=== PATIENT | male | born 1955 | race Hispanic/Latino ===

== ENCOUNTER 2024-11-13 11:55 | Inpatient (IN) | payer OTHER ==
--- OUTSIDE RECORDS SUMMARY | 2024-11-13 12:10 | XMS REPORT | Continuity of Care Document ---
Author Name Unknown Address [address] [facility] [address] [place] [address] [facility] [place] Address [address] [facility] [address] [place] [address] Care Team Providers Care Leaf Blender Name Role Phone None, None Primary Care Physician GARTH BUSTAMANTE I Attending Clinician Unavailab mary KERN MD Attending Clinician Unavailab JACQUELINE Londono Attending Clinician Unavailable ACACIA REYES Attending Clinician Unav MEAGHAN Tinsley Attending Clinician Unavailable ANTHONY BERNAL Attending Clinician Unavailable WIN ELMORE Attending Clinician Unavailable JOSE LEIVA Attending Clinician Unava ilVIGNESH Tapia Attending Clinician Unavailable LAB69 Attending Clinician Unavailable LAB45 Attending Clinician Unavailable FRANKIE SHARMA Attending Clinician Unavailable SHANNA JARA Attending Clinician Unavailable MICHELA SAAB Attending Clinician Unavailable YARA DAVIS Attending Clinician Unagonzalo He, HOLTER Attending Clinician Unavailable LAB39 Attending Clinician Unavailable ISIDORO YAÑEZ Attending Clinician Unavailable RODRÍGUEZ EARL Attending Clinician Unavailable MASSIEL AHMADI Attending Clinician Un available JAMEL POOL Attending Clinician Unavailable LAB57 Attending Clinician Unavailable URBANO REDD Attending Clinician Unavaila MAURICE Healy Attending Clinician UnavailQUITA Perez Attending Clinician Unavailable AL MALONEY Attending Clinician Unavailable Hi Hill MD Attending Clinician [phone] Trevor NAVA, Sher Gusman Attending Clinician + [phone] Al Maloney MD Attending Clinician [phone] Ky DOBBS, Maryse Gee Attending Clinicia n AL MALONEY Attending Clinician Unavailable FRANCESCA ADAME Attending Clinician Unavailable SHER RITCHIE Attending Clinician Unavailable [id number] Attending Clinician Unavailable Alexia Sherman MD Attending Clinician + JERRICA BONNER Attending Clinician Unavailab le LAB91 Attending Clinician Unavailable 39, HOLTER Attending Clinician Unavailable ARETHA NAVARRO Attending Clinician Unavailab le LAB90 Attending Clinician Unavailable Tim Tarango MD Attending Clinician [phone] GAUDENCIO ADAMS Attending Clinician Unavailable Samm Rivera MD Attending Clinician [phone] Booker Hicks DO Attending Clinician [phone] Riya Lee MD Attending Clinician +[phone] Yissel Slaughter MD Attending Clinician + [phone] Gaudencio Adams MD Attending Clinician +[phone] YOANDY MILLS Attending Clinician UnavailGLENDY Hartman Attending Clinician Unavailable David Zelaya Attending Clinician +[phone] LUL CUELLAR Attending Clinician Unavailable ADRY FAYE Attending Clinician Unavailable PROVIDER, AFFILIATE Attending Clinician Unavaila SHER Mantilla Admitting Clinician Unavamichael Murray DO, Sher Gusman Admitting Clinician + [phone] AL MALONEY Admitting Clinician Unavailable Al aMloney MD Admitting Clinician [phone] RIYA LEE Admitting Clinician Unavailable Riya Lee MD Admitting Clinician Payers Payer Name Policy Type Policy Number Effective Date Expirati on Date Source WELLCARE/WELLCARE [place] [id number] 2022 00:00:00 WELLCARE [place] CLASSIC SIMPLE 7 [id number] 2024 00:00:00 WELLCARE MEDICARE Medicare [id number] 2023 00:00:00 BRE KRAMER GOLD PLUS 42 OA 7 [id number] 2022 00:00:00 Problems Condition Name Condition Details Condition Category Status Onset Date Resolution Date Last Treatment Date Treating Clinician Comments Source Acute on chronic systolic (congestiv e) heart failure (multi HCC) Acute on chronic systolic (congestiv e) heart failure (multi HCC) Disease Active 07-05 00:00: 00 Nagela Seybold - Externa l Bilateral lower extremity edema Bilateral lower extremity edema Disease Active 07-04 00:00: 00 Angela Seybold - Externa l NIHARIKA (obstructi ve sleep apnea) NIHARIKA (obstructi ve sleep apnea) Disease Active 06-20 00:00: 00 Angela Seybold - Externa l Subclinica l hypothyroi dism Subclinica l hypothyroi dism Disease Active 06-20 00:00: 00 Angela Seybold - Externa l Class 3 severe obesity with body mass index (BMI) of 40.0 to 44.9 in adult Class 3 severe obesity with body mass index (BMI) of 40.0 to 44.9 in adult Disease Active 06-20 00:00: 00 Angela Seybold - Externa l Acute metabolic encephalop athy Acute metabolic encephalop athy Disease Active 05-18 00:00: 00 Memoria l Td Epic Acute on chronic systolic (congestiv e) heart failure Acute on chronic systolic (congestiv e) heart failure Disease Active 03-04 00:00: 00 Mem[facility] Epic Acute hypoxic respirator y failure Acute hypoxic respirator y failure Disease Active 03-04 00:00: 00 Memoria [facility] Epic PAF (paroxysma l atrial fibrillati on) (multi HCC) PAF (paroxysma l atrial fibrillati on) (multi HCC) Disease Active 02-25 00:00: 00 Angela Herreraold - Externa l Hypercoagu lable state due to paroxysmal atrial fibrillati on (multi HCC) Hypercoagu lable state due to paroxysmal atrial fibrillati on (multi HCC) Disease Active 02-25 00:00: 00 Angela Joyner - Externa l CHF (congestiv e heart failure) (multi HCC) CHF (congestiv e heart failure) (multi HCC) Disease Active 02-25 00:00: 00 Angela Joyner - Externa l Benign prostatic hyperplasi a with weak urinary stream Benign prostatic hyperplasi a with weak urinary stream Disease Active 02-25 00:00: 00 Angela Hrereraold - Externa l Primary hypertensi on Primary hypertensi on Disease Active 02-25 00:00: 00 Angela Joyner - Externa l Alcoholic liver disease (HHS-HCC) Alcoholic liver disease (HHS-HCC) Disease Active 02-25 00:00: 00 Angela Joyner - Externa john Hepatomega ly Hepatomega ly Disease Active 02-25 00:00: 00 Angela Herreraold - Externa l Morbid obesity Morbid obesity Disease [facility] 2023-02 00:00: 00 Jenae Appiah Epic BMI 40.0-44.9, adult BMI 40.0-44.9, adult Disease Active 2023-02 00:00: 00 Jenae Appiah Epic New onset atrial fibrillati on (CMS/HCC) New onset atrial fibrillati on (CMS/HCC) Disease Active 2023-02 00:00: 00 Jenae Appiah Epic Hypertensi on Hypertensi on Disease Active 2023-02 00:00: 00 Jenae Appiah Epic Other heart failure Other heart failure Disease Active 2023-02 00:00: 00 Jenae Appiah Epic Acute hypercapni c respirator y failure (CMS/HCC) Acute hypercapni c respirator y failure (CMS/HCC) Disease Active 2023-02 00:00: 00 Jenae Lang Class 3 severe obesity due to excess calories without serious comorbidit y with body mass index (BMI) of 40.0 to 44.9 in adult Class 3 severe obesity due to excess calories without serious comorbidit y with body mass index (BMI) of 40.0 to 44.9 in adult Disease Active 03-03 00:00: 00 Angela Herreraold - Externa l Morbid obesity Morbid obesity Disease Active 03-03 00:00: 00 Angela Setimothyold - Externa l Primary osteoarthr itis of both knees Primary osteoarthr itis of both knees Disease Active 2021-02 00:00: 00 Angela Setimothyold - Externa l Prediabete s Prediabete s Disease Active 2021-02 00:00: 00 Angela Herreraold - Externa l Alcohol abuse Alcohol abuse Disease Active 2021-02 00:00: 00 Angela Herreraold - Externa l Cannabis abuse, daily use Cannabis abuse, daily use Disease Active 2021-02 00:00: 00 Angela Herreraold - Externa l Screening, lipid Screening, lipid Disease Active 2021-02 00:00: 00 Angela Setimothyold - Externa l Alcohol withdrawal delirium, acute, hyperactiv e Alcohol withdrawal delirium, acute, hyperactiv e Disease Resolve d 2023-02 2-27 00:00: 00 2024-02-22 00:00:00 2024-02-22 14:24:03 Jenae Lang Acute respirator y failure with hypoxia and hypercapni a (CMS/HCC) Acute respirator y failure with hypoxia and hypercapni a (CMS/HCC) Disease Resolve d 2023-02 2-25 00:00: 00 2024-02-22 00:00:00 2024-02-22 14:24:01 Jenae Appiah [facility] Social History Social Habit Start Date Stop Date Quantity Comments Source Gender identity 2023-05-13 08:00:53 Identifies as [facility]finding[facility] Sexual orientation [facility] History of tobacco use Cigarette Smoker [facility] History SDOH Alcohol Std Drinks Angela reeder - External History SDOH Alcohol Binge Angela Joyner - External History of Occupation Angela Joyner - External History SDOH Alcohol Frequency Angela madrigal - External Alcoholic beverage intake 2024-08-27 00:00:00 2024-08-27 00:00:00 21.43 /d Angela Anya - External History of Social function 2024-05-17 00:00:00 2024-05-17 00:00:00 [facility] Exposure to SARS-CoV-2 (event) 2022-03-25 00:00:00 2022-04-04 13:54:00 Not sure [facility] Alcohol intake 2022-04-04 00:00:00 2022-04-04 00:00:00 Ex-drinker (finding) [facility] Alcohol Comment 2021-12-01 00:00:00 2021-12-01 00:00:00 he states he drinks beer for pain Angela Joyner - External Education 2021-12-01 00:00:00 2021-12-01 00:00:00 10 Angela Joyner - External Tobacco use and exposure 2021-12-01 00:00:00 2021-12-01 00:00:00 Smokeless tobacco non-user Angela Joyner - External Sex 2021-11-10 21:03:56 2021-11-10 21:03:56 Male (finding) Angela Joyner - External Sex Assigned At 1955 00:00:00 1955 00:00:00 [facility] Smoking Status Start Date Stop Date Source Ex-smoker 2022-04-04 00:00:00 2022-04-04 00:00:00 [facility] Never smoked tobacco Angela Joyner - External Medications Ordered Medication Name Filled Medication Name Start Date Stop Date Current Medication? Ordering Clinician Indication Dosage Frequency Signature (SIG) Comments Components Source Levothyroxi ne Sodium 50 MCG oral Tablet 08-14 00:00: 00 Yes 50ug QD Take 1 tablet (50 mcg total) by mouth daily. Angela lopez Bumetanide 1 MG oral Tablet 08-09 00:00: 00 Yes 2mg Q.5D Take 2 tablets (2 mg total) by mouth 2 times daily. Angela lopez Spironolact one 25 MG oral Tablet 07-26 00:00: 00 Yes 25mg QD Take 1 tablet (25 mg total) by mouth daily. Angela lopez Tacrolimus (Protopic) 0.1 % apply externally Ointment 07-16 00:00: 00 Yes [id number] Apply to active rash on face if red, itching, or spreading BID PRN. If rash is severe there may be mild burning or stinging with initial use.. Angela lopez Hydroquinon e 4 % apply externally Cream 07-16 00:00: 00 Yes [id number] Apply to dark spots on face starting every other night and increasing to nightly if not too irritated. Use for 2 months on, 1 month off, then re-start PRN. Angela lopez Bumetanide 1 MG oral Tablet 07-08 00:00: 00 Yes 2mg Q.5D Take 2 tablets (2 mg total) by mouth 2 times daily. Angela lopez Losartan Potassium (COZAAR) 50 MG oral Tablet 07-08 00:00: 00 Yes [id number] 50mg QD Take 1 tablet (50 mg total) by mouth daily. Angela lopez Metoprolol Succinate 100 MG oral TABLET SR 24 HR 07-08 00:00: 00 Yes [id number] 100mg QD Take 1 tablet (100 mg total) by mouth daily. Angela lopez Metoprolol Tartrate (LOPRESSOR) 25 MG oral Tablet 07-04 08:52: 03 Yes 25mg Q6H Take 1 tablet (25 mg total) by mouth every 6 (six) hours. Angela lopez Lactulose 10 GM/15ML oral Solution 07-02 00:00: 00 Yes [id number] 20g Q.[id number] 3D TAKE 30 ML (20 G TOTAL) BY MOUTH 3 TIMES DAILY. Angela lopez Tamsulosin HCl 0.4 MG oral Capsule 06-21 00:00: 00 Yes [id number] 9100 .4mg QD TAKE 1 CAPSULE BY MOUTH EVERY DAY Angela lopez Metoprolol Tartrate (LOPRESSOR) 25 MG oral Tablet 06-20 14:16: 53 Yes 25mg Q6H Take 1 tablet (25 mg total) by mouth every 6 (six) hours. Angela lopez Semaglutide -Weight Management (Wegovy) 0.25 MG/0.5ML subcutaneou s Solution Auto-inject or 06-20 00:00: 00 Yes [id number] 104 .25mg Q1W Inject 0.25 mg into the skin once a week. Angela lopez Metoprolol Tartrate (LOPRESSOR) 25 MG oral Tablet 06-10 09:58: 34 Yes 25mg Q6H Take 1 tablet (25 mg total) by mouth every 6 (six) hours. Angela lopez Lactulose 20 GM/30ML oral Solution 06-05 16:02: 25 06-05 00:00 :00 No 20g Q.36266295 [id number] 3D Take 30 mL (20 g total) by mouth 3 times daily. Angela lopez Metoprolol Tartrate (LOPRESSOR) 25 MG oral Tablet 06-05 14:43: 33 Yes 25mg Q6H Take 1 tablet (25 mg total) by mouth every 6 (six) hours. Angela lopez Lactulose 20 GM/30ML oral Solution 06-05 00:00: 00 Yes [id number] 20g Q.08268195 [id number] 3D Take 30 mL (20 g total) by mouth 3 times daily. Angela lopez Metoprolol Tartrate (LOPRESSOR) 25 MG oral Tablet 05-31 11:35: 09 Yes 25mg Q6H Take 1 tablet (25 mg total) by mouth every 6 (six) hours. Angela lopez Lactulose 20 GM/30ML oral Solution 05-31 11:35: 09 Yes 20g Q.26911219 [id number] 3D Take 30 mL (20 g total) by mouth 3 times daily. Angela lopez Tamsulosin HCl 0.4 MG oral Capsule 05-28 00:00: 00 Yes [id number] 9100 .4mg QD TAKE 1 CAPSULE BY MOUTH EVERY DAY Angela lopez warfarin (Coumadin) 2.5 MG tablet warfarin (Coumadin) 2.5 MG tablet 05-27 11:23: 34 Yes 2.5mg QD Take 2.5 mg by mouth 1 time each day. 2.5mg daily Monday- Monday and 5mg daily for Monday and Monday. Jenae Lang metoprolol tartrate (Lopressor) 25 MG tablet metoprolol tartrate (Lopressor) 25 MG tablet 05-27 00:00: 00 06-26 23:59 :00 No 25mg Q.25D Take 1 tablet by mouth every 6 hours. Jenae Lang lactulose (Chronulac) 10 GM/15ML solution lactulose (Chronulac) 10 GM/15ML solution 05-27 00:00: 00 06-06 23:59 :00 No 20g Q.81301046 [id number] 3D Take 30 mL by mouth in the morning and 30 mL at noon and 30 mL in the evening. Do all this for 10 days. Jenae Lang lactulose (Chronulac) 10 GM/15ML solution 20 g lactulose (Chronulac) 10 GM/15ML solution 20 g 05-26 17:00: 00 Yes 20g Q.44227736 [id number] 3D 20 g, Oral, 3 times daily, First dose on 05/26/24 at 1700 Jenae Lang mupirocin (Bactroban) 2 % ointment mupirocin (Bactroban) 2 % ointment 05-26 17:00: 00 Yes Q.06063459 [id number] 3D Topical, 3 times daily, First dose on 05/26/24 at 1700 Jenae Lang warfarin (Coumadin) tablet 3 mg warfarin (Coumadin) tablet 3 mg 05-26 17:00: 00 Yes 3mg QD 3 mg, Oral, Daily, First dose on 05/26/24 at 1700, [facility]ous [facility] 3: Reproducti ve risk Hazardous Drug -- Refer to safe handling procedure PPE Matrix Jenae Appiah [facility] potassium & sodium phosphates (Phos-NaK) 280-160-250 MG packet 1 packet potassium & sodium phosphates (Phos-NaK) 280-160-250 MG packet 1 packet 05-26 13:45: 00 05-26 13:58 :00 No 1{packe t} 1 packet, Oral, Once, On 05/26/24 at 1345, For 1 dose, mg dosing is based on phosphorus component. Each packet contains 250 mg elemental phosphorus . Mix 1 packet in 75 mL water or juice; stir well and administer promptly. Jenae Appiah [facility] warfarin (Coumadin) tablet 1 mg warfarin (Coumadin) tablet 1 mg 05-25 17:00: 00 05-26 08:28 :11 No 1mg 1 mg, Oral, User specified (Once per day on Monday), First dose on Mon05/25/24 at 1700, 0.5mg Monday -Monday 1mg Monday and Monday [facility] 3: Reproducti ve risk Hazardous Drug -- Refer to safe handling procedure PPE Matrix Jenae Appiah [facility] enoxaparin (Lovenox) syringe 135 mg enoxaparin (Lovenox) syringe 135 mg 05-25 13:00: 00 Yes 1mg/kg Q12H 135 mg (rounded from 139 mg = 1 mg/kg ?139 kg), Subcutaneo us, Every 12 hours, First dose (after last modificati on) on Mon05/25/24 at 1300 Kristofernathan john Td [facility] furosemide (Lasix) tablet 40 mg furosemide (Lasix) tablet 40 mg 05-25 08:00: 00 Yes 40mg 40 mg, Oral, 2 times daily (10/05), First dose on 05/25/24 at 0800 Jenae Aminann [facility] warfarin (Coumadin) tablet 0.5 mg warfarin (Coumadin) tablet 0.5 mg 05-24 21:30: 00 05-26 08:27 :38 No .5mg 0.5 mg, Oral, User specified (Once per day on Monday), First dose on Mon05/24/24 at 2130, 0.5mg Monday -Monday 1mg Monday and Monday [facility] 3: Reproducti ve risk Hazardous Drug -- Refer to safe handling procedure PPE Matrix Jenae Lang Warfarin Dosing per Pharmacy Warfarin Dosing per Pharmacy 05-24 17:50: 29 Yes 1{each} 1 each, Does not apply, As needed, other, Dose per pharmacy., Starting on Mon05/24/24 at 1750, This order is a placeholde r as a reminder that warfarin is being dosed per pharmacy. Warfarin doses will be entered as a separate order. Jenae Lang melatonin tablet 3 mg melatonin tablet 3 mg 05-24 13:52: 31 Yes 3mg QD 3 mg, Oral, Nightly PRN, sleep, Starting on Mon05/24/24 at 1352 Jenae Lang polyethylen e glycol (PEG) 3350 (Miralax) packet 17 g polyethylen e glycol (PEG) 3350 (Miralax) packet 17 g 05-24 13:52: 31 Yes 17g Q24H 17 g, Oral, Daily PRN, constipati on, Starting on Mon05/24/24 at 1352, Dissolve 17 g in 120 to 240 mL (4 to 8 ounces) of beverage. Jenae Lang traMADol (Ultram) tablet 50 mg traMADol (Ultram) tablet 50 mg 05-24 13:52: 31 Yes 50mg Q6H 50 mg, Oral, Every 6 hours PRN, moderate pain (4-6), Starting on Mon05/24/24 at 1352 Jenae Lang ondansetron (Zofran) injection 4 mg ondansetron (Zofran) injection 4 mg 05-24 13:52: 31 Yes 4mg Q6H 4 mg, Intravenou s, Every 6 hours PRN, nausea, vomiting, Starting on Mon05/24/24 at 1352 Jenae Lang morphine PF injection 2 mg morphine PF injection 2 mg 05-24 13:52: 31 Yes 2mg Q4H 2 mg, Intravenou s, Every 4 hours PRN, severe pain (7-10), [facility]05/24/24 at 1352 [facility] dextrometho rphan-guaiF ENesin (Robitussin -DM) 10-100 MG/5ML liquid 5 mL dextrometho rphan-guaiF ENesin (Robitussin -DM) 10-100 MG/5ML liquid 5 mL 05-24 13:52: 31 Yes 5mL Q4H 5 mL, Oral, Every 4 hours PRN, cough, Starting on Mon05/24/24 at 1352 [facility] ipratropium -albuterol (Duo-Neb) 0.5-2.5 mg/3 mL nebulizer solution 3 mL ipratropium -albuterol (Duo-Neb) 0.5-2.5 mg/3 mL nebulizer solution 3 mL 05-24 13:52: 31 Yes 3mL Q6H 3 mL, Nebulizati on, Every 6 hours PRN, wheezing, shortness of breath, Starting on Mon05/24/24 at 1352 [facility] hydrALAZINE injection 25 mg hydrALAZINE injection 25 mg 05-24 13:52: 31 Yes 25mg Q6H 25 mg, Intravenou s, Every 6 hours PRN, high blood pressure, For SBP >165 DBP >110, Starting on Mon05/24/24 at 1352 [facility] bisacodyl (Dulcolax) suppository 10 mg bisacodyl (Dulcolax) suppository 10 mg 05-24 13:52: 31 Yes 10mg Q24H 10 mg, Rectal, Daily PRN, constipati on, Starting on Mon05/24/24 at 1352 [facility] acetaminoph en (Tylenol) tablet 650 mg acetaminoph en (Tylenol) tablet 650 mg 05-24 13:52: 31 Yes 650mg Q6H 650 mg, Oral, Every 6 hours PRN, mild pain (1-3), fever, Starting on Mon05/24/24 at 1352 [facility] calcium gluconate 1 g in sodium chloride 0.9 % 50 mL IVPB calcium gluconate 1 g in sodium chloride 0.9 % 50 mL IVPB 05-24 11:04: 30 Yes 1g 1 g, Intravenou s, Administer over 30 Minutes, As needed, Abnormal Lab Result, For NON-ICU Patients Only., Starting on Mon05/24/24 at 1104, For Ionized Calcium 1-1.05 mmol/L: Replace with 1gm Calcium gluconate IVPB over 30 minutes x 2 doses. For Ionized Calcium 0.91 - 0.99 mmol/L: Replace with 1 gm Calcium gluconate IVPB over 30 minutes x 3 doses. Recheck Ionized Calcium level 4 hours after Calcium replacemen t. Notify MD if ionized calcium < 0.91 mMol/L prior to replacemen t. *DO NOT replace if patient is on dialysis, temperatur e < 35 Celsius, or serum creatinine >2.0 mg/dL or GFR < 45 mL/min. Jenae Appiah Epic magnesium oxide (Mag-Ox) tablet 800 mg magnesium oxide (Mag-Ox) tablet 800 mg 05-24 11:04: 30 Yes 800mg 800 mg, Oral, As needed, Abnormal Lab Result, For NON-ICU Patients Only., Starting on Mon05/24/24 at 1104, For Magnesium 1.8 - 2.0 mg/dL:? Replace with Magnesium 800 mg PO x 1 dose. For Magnesium 1.5 - 1.7 mg/dL: Replace with Magnesium 800 mg PO every 4 hours x 2 doses. For Magnesium 1.1 - 1.4 mg/dL:? Replace with Magnesium 800 mg PO every 4 hours x 3 doses.? Recheck Magnesium level 4 hours after the end of replacemen t.Notify MD if Magnesium level is < 1.1 mg/dL prior to replacemen t.*Use PO or NJ administra tion unless patient is first 12 hours post-op, active GI bleed, acute arrhythmia s, ischemic bowel or NPO. *DO NOT replace if patient is on dialysis, temperatur e < 35 Celsius, or serum creatinine > 2.0 mg/dL or GFR < 45 mL/min. Jenae Appiah Epic magnesium sulfate IVPB 4 g magnesium sulfate IVPB 4 g 05-24 11:04: 30 Yes 4g 4 g, Intravenou s, at 25 mL/hr, Administer over 4 Hours, As needed, Abnormal Lab Result, For NON-ICU Patients Only, Starting on Mon05/24/24 at 1104, For Magnesium 1.8 - 2 mg/dL: Replace with Magnesium Sulfate 1 gram IVPB over 1 hour x 1 dose. For Magnesium 1.5 - 1.7 mg/dL: Replace with Magnesium Sulfate 2 grams IVPB over 2 hours x 1 dose. For Magnesium 1.1 - 1.4 mg/dL:? Replace with Magnesium Sulfate 4 grams IVPB over 4 hours x 1 dose. Recheck Magnesium level 4 hours after the end of replacemen t.Notify MD if Magnesium level is < 1.1 mg/dL prior to replacemen t.*Use PO or NJ administra tion unless patient is first 12 hours post-op, active GI bleed, acute arrhythmia s, ischemic bowel or NPO. *DO NOT replace if patient is on dialysis, temperatur e < 35 Celsius, or serum creatinine > 2.0 mg/dL or GFR < 45 mL/min. Jenae Appiah Epic magnesium sulfate IVPB 2 g magnesium sulfate IVPB 2 g 05-24 11:04: 30 Yes 2g 2 g, Intravenou s, at 25 mL/hr, Administer over 2 Hours, As needed, Abnormal Lab Result. For NON-ICU Patients Only., Starting on Mon05/24/24 at 1104, For Magnesium 1.8 - 2 mg/dL: Replace with Magnesium Sulfate 1 gram IVPB over 1 hour x 1 dose. For Magnesium 1.5 - 1.7 mg/dL: Replace with Magnesium Sulfate 2 grams IVPB over 2 hours x 1 dose. For Magnesium 1.1 - 1.4 mg/dL:? Replace with Magnesium Sulfate 4 grams IVPB over 4 hours x 1 dose. Recheck Magnesium level 4 hours after the end of replacemen t.Notify MD if Magnesium level is < 1.1 mg/dL prior to replacemen t.*Use PO or NJ administra tion unless patient is first 12 hours post-op, active GI bleed, acute arrhythmia s, ischemic bowel or NPO. *DO NOT replace if patient is on dialysis, temperatur e < 35 Celsius, or serum creatinine > 2.0 mg/dL or GFR < 45 mL/min. Jenae Appiah Epic magnesium sulfate in D5W IVPB 1 g magnesium sulfate in D5W IVPB 1 g 05-24 11:04: 30 Yes 1g 1 g, Intravenou s, at 100 mL/hr, Administer over 1 Hours, As needed, Abnormal Lab Result, For NON-ICU Patients Only., Starting on Mon05/24/24 at 1104, For Magnesium 1.8 - 2 mg/dL: Replace with Magnesium Sulfate 1 gram IVPB over 1 hour x 1 dose. For Magnesium 1.5 - 1.7 mg/dL: Replace with Magnesium Sulfate 2 grams IVPB over 2 hours x 1 dose. For Magnesium 1.1 - 1.4 mg/dL:? Replace with Magnesium Sulfate 4 grams IVPB over 4 hours x 1 dose. Recheck Magnesium level 4 hours after the end of replacemen t.Notify MD if Magnesium level is < 1.1 mg/dL prior to replacemen t.*Use PO or NJ administra tion unless patient is first 12 hours post-op, active GI bleed, acute arrhythmia s, ischemic bowel or NPO. *DO NOT replace if patient is on dialysis, temperatur e < 35 Celsius, or serum creatinine > 2.0 mg/dL or GFR < 45 mL/min. Jenae Appiah Epic sodium phosphates 30 mmol in sodium chloride 0.9 % 100 mL IVPB sodium phosphates 30 mmol in sodium chloride 0.9 % 100 mL IVPB 05-24 11:04: 30 Yes 30mmol 30 mmol, Intravenou s, Administer over 4 Hours, As needed, Abnormal Lab Result, For NON-ICU Patients Only, Starting on Mon05/24/24 at 1104, Evaluate Potassium, Phosphorou s, and Sodium level prior to replacemen t.Phosphor ous IVPB replacemen t when K > 3.9 mEq/L: (For PO or [place] replacemen t option, see orders for potassium phosphate- sodium phosphate oral packet.) For phosphorou s 2 - 2.4 mg/dL and K > 3.9 mEq/L: Replace with Sodium Phosphate 15 mmol IVPB over 4 hrs. For phosphorou s 1.6 - 1.9 mg/dL and K > 3.9 mEq/L: Replace with Sodium Phosphate 30 mmol IVPB over 4 hrs. Recheck phosphorou s level 4 hours after replacemen t complete.N otify MD if Phosphorou s level < 1.6 mg/dL or Na > 148 mEq/L prior to replacemen t. *Use PO or [place] administra tion unless patient is first 12 hours post-op, active GI bleed, acute arrhythmia s, ischemic bowel or NPO. *DO NOT replace if patient is on dialysis, temperatur e < 35 Celsius, or serum creatinine > 2.0 mg/dL or GFR < 45 mL/min. Memoria l [facility] Epic sodium phosphates 15 mmol in sodium chloride 0.9 % 100 mL IVPB sodium phosphates 15 mmol in sodium chloride 0.9 % 100 mL IVPB 05-24 11:04: 30 Yes 15mmol 15 mmol, Intravenou s, Administer over 4 Hours, As needed, Abnormal Lab Result, For NON-ICU Patients Only, Starting on Mon05/24/24 at 1104, Evaluate Potassium, Phosphorou s, and Sodium level prior to replacemen t.Phosphor ous IVPB replacemen t when K > 3.9 mEq/L: (For PO or NJ replacemen t option, see orders for potassium phosphate- sodium phosphate oral packet.) For phosphorou s 2 - 2.4 mg/dL and K > 3.9 mEq/L: Replace with Sodium Phosphate 15 mmol IVPB over 4 hrs. For phosphorou s 1.6 - 1.9 mg/dL and K > 3.9 mEq/L: Replace with Sodium Phosphate 30 mmol IVPB over 4 hrs. Recheck phosphorou s level 4 hours after replacemen t complete.N otify MD if Phosphorou s level < 1.6 mg/dL or Na > 148 mEq/L prior to replacemen t. *Use PO or NJ administra tion unless patient is first 12 hours post-op, active GI bleed, acute arrhythmia s, ischemic bowel or NPO. *DO NOT replace if patient is on dialysis, temperatur e < 35 Celsius, or serum creatinine > 2.0 mg/dL or GFR < 45 mL/min. Memoria l Td Epic Potassium Phosphates 30 mmol in sodium chloride 0.9 % 250 mL infusion Potassium Phosphates 30 mmol in sodium chloride 0.9 % 250 mL infusion 05-24 11:04: 30 Yes 30mmol 30 mmol, Intravenou s, Administer over 4 Hours, As needed, Abnormal Lab Result, For NON-ICU Patients Only, Starting on Mon05/24/24 at 1104, Potassium and Phosphorou s replacemen t:For K 3.5 - 3.9 mEq/L AND phosphorou s 2.0 - 2.4 mg/dL: Replace with Potassium Phosphate 15 mMol IVPB over 4 hours. For K 3.1 - 3.4 mEq/L AND phosphorou s 2.0 - 2.4 mg/dL: Replace with KCL 20 meq PO/NJ (or IVPB over 2 hours) followed by Potassium Phosphate 15 mMol IVPB over 4 hours. For K 3.1 - 3.9 mEq/L AND phosphorou s 1.6 - 1.9 mg/dL: Replace with Potassium Phosphate 30 mMol IVPB over 4 hours. Recheck Potassium and Phosphorou s level 4 hours after replacemen t complete. Notify MD for K < 3.1 mEq/L or Phosphorou s < 1.6 mg/dL prior to replacemen t.*Use PO or NJ administra tion unless patient is first 12 hours post-op, active GI bleed, acute arrhythmia s, ischemic bowel or NPO. *DO NOT replace if patient is on dialysis, temperatur e < 35 Celsius, or serum creatinine > 2.0 mg/dL or GFR < 45 mL/min. Memoria l Td Epic potassium phosphates 15 mmol in sodium chloride 0.9 % 100 mL infusion potassium phosphates 15 mmol in sodium chloride 0.9 % 100 mL infusion 05-24 11:04: 30 Yes 15mmol 15 mmol, Intravenou s, Administer over 4 Hours, As needed, PRN Abnormal Lab Result, For NON-ICU Patients Only., Starting on Mon05/24/24 at 1104, Potassium and Phosphorou s replacemen t:For K 3.5 - 3.9 mEq/L AND phosphorou s 2.0 - 2.4 mg/dL: Replace with Potassium Phosphate 15 mMol IVPB over 4 hours. For K 3.1 - 3.4 mEq/L AND phosphorou s 2.0 - 2.4 mg/dL: Replace with KCL 20 meq PO/NJ (or IVPB over 2 hours) followed by Potassium Phosphate 15 mMol IVPB over 4 hours. For K 3.1 - 3.9 mEq/L AND phosphorou s 1.6 - 1.9 mg/dL: Replace with Potassium Phosphate 30 mMol IVPB over 4 hours. Recheck Potassium and Phosphorou s level 4 hours after replacemen t complete. Notify MD for K < 3.1 mEq/L or Phosphorou s < 1.6 mg/dL prior to replacemen t.*Use PO or NJ administra tion unless patient is first 12 hours post-op, active GI bleed, acute arrhythmia s, ischemic bowel or NPO. *DO NOT replace if patient is on dialysis, temperatur e < 35 Celsius, or serum creatinine > 2.0 mg/dL or GFR < 45 mL/min. Maximum rate for peripheral administra tion 40 mL/hr, maximum rate for central line administra tion 100 mL/hr. Memoria l T[facility] Epic potassium & sodium phosphates (Phos-NaK) 280-160-250 MG packet 2 packet potassium & sodium phosphates (Phos-NaK) 280-160-250 MG packet 2 packet 05-24 11:04: 30 Yes 2{packe t} 2 packet, Oral, As needed, Abnormal Lab Result, For NON-ICU Patients Only, Starting on Mon05/24/24 at 1104, Oral Phosphorou s replacemen t when K is 3.5 - 4.5 mEq/L:(If the K is < 3.5 mEq/L, refer to IVPB Potassium Phosphate orders for replacemen t)Evaluate Potassium, Phosphorou s, and Sodium level prior to replacemen t. For Phosphorou s 2 - 2.4 mg/dL and K 3.5 - 4.5 mEq/L: Replace with 2 packets PO x 1 dose For Phosphorou s 1.6 - 1.9 mg/dL and K 3.5 - 4.5 mEq/L: Replace with 2 packets PO every 4 hours x 2 doses Recheck Potassium and Phosphorou s level 4 hours after replacemen t.Notify MD if PO4 level is <1.6mg/dL prior to replacemen t.*Use PO or NJ administra tion unless patient is first 12 hours post-op, active GI bleed, acute arrhythmia s, ischemic bowel or NPO. *DO NOT replace if patient is on dialysis, temperatur e < 35 Celsius, or serum creatinine > 2.0 mg/dL or GFR < 45 mL/min. Memoria l [facility] Epic potassium chloride IVPB 10 mEq potassium chloride IVPB 10 mEq 05-24 11:04: 29 Yes 10meq 10 mEq, Intravenou s, at 100 mL/hr, Administer over 1 Hours, As needed, Abnormal Lab Result, For NON-ICU Patients Only, Starting on Mon05/24/24 at 1104, Evaluate Potassium and Phosphorou s level prior to replacemen t.Stephanie m chloride Peripheral infusion concentrat ion = 0.1 mEq/mLAdmi nister each KCL 10 mEq IVPB dose over 1 hour. Potassium replacemen t; phosphorou s > 2.4 mg/dL or phosphorou s level not available: For K = 3.5 - 3.9 mEq/L: Replace with KCL 20 mEq IVPB over 2 hours.? Recheck Potassium with next scheduled lab. For K = 3.1 - 3.4 mEq/L: Replace with KCL 40 mEq IVPB over 4 hours.? Recheck Potassium 4 hours after replacemen t. Potassium and Phosphorou s IV Replacemen t (See Potassium Phosphate orders): For K = 3.5 - 3.9 mEq/L AND Phosphorou s 2 - 2.4 mg/dL:? Replace with Potassium Phosphate 15 mMol IVPB over 4 hours. For K = 3.1 - 3.4 mEq/L AND Phosphorou s 2 - 2.4 mg/dL: Replace with KCL 20 mEq? IVPB over 2 hours followed by Potassium Phosphate 15 mMol IVPB over 4 hours.? For K = 3.1 - 3.9 mEq/L AND Phosphorou s 1.6 - 1.9 mg/dL: Replace with Potassium Phosphate 30 mMol IVPB over 4 hours.? Recheck Potassium and Phosphorou s levels 4 hours after replacemen t complete. Notify MD for K < 3.1 mEq/L or Phosphorou s < 1.6 mg/dL prior to replacemen t.*Use PO or NJ administra tion unless patient is first 12 hours post-op, active GI bleed, acute arrhythmia s, ischemic bowel or NPO. *DO NOT replace if patient is on dialysis, temperatur e < 35 Celsius, or serum creatinine > 2.0 mg/dL or GFR < 45 mL/min. Jenae Lang Potassium chloride solution 20 mEq Potassium chloride solution 20 mEq 05-24 11:04: 29 Yes 20meq 20 mEq, Nasogastri c, As needed, Abnormal Lab Result, For NON-ICU Patients Only, Starting on Mon05/24/24 at 1104, Evaluate Potassium and Phosphorou s level prior to replacemen t. Potassium replacemen t; phosphorou s > 2.4 mg/dL or phosphorou s level not available: For K = 3.5 - 3.9 mEq/L: Replace with KCL 20 mEq.? Recheck Potassium with next scheduled lab. For K = 3.1 - 3.4 mEq/L: Replace with KCL 40 mEq.? Recheck Potassium 4 hours after replacemen t. Potassium and Phosphorou s Replacemen t (See Phosphate replacemen t orders):Fo r K = 3.5 - 4.5 mEq/L AND Phosphorou s 2 - 2.4 mg/dL:? Replace with 2 packets of Potassium phosphate/ sodium phosphate oral powder x 1 dose. For K = 3.5 - 4.5 mEq/L AND Phosphorou s 1.6 - 1.9 mg/dL:? Replace with 2 packets of Potassium phosphate/ sodium phosphate oral powder Q4H x 2 doses. For K = 3.1 - 3.4 mEq/L AND Phosphorou s 2 - 2.4 mg/dL: Replace with KCL 20 mEq PO/NJ AND Potassium Phosphate 15 mMol IVPB over 4 hours.? For K = 3.1 - 3.4 mEq/L AND Phosphorou s 1.6 - 1.9 mg/dL: Replace with Potassium Phosphate 30 mMol IVPB over 4 hours.? Recheck Potassium and Phosphorou s levels 4 hours after replacemen t complete. Notify MD for K < 3.1 mEq/L or Phosphorou s < 1.6 mg/dL prior to replacemen t. *Use PO or NJ administra tion unless patient is first 12 hours post-op, active GI bleed, acute arrhythmia s, ischemic bowel or NPO. *DO NOT replace if patient is on dialysis, temperatur e < 35 Celsius, or serum creatinine > 2.0 mg/dL or GFR < 45 mL/min. Jenae Lang potassium chloride CR (Klor-Con M20) ER tablet 40 mEq potassium chloride CR (Klor-Con M20) ER tablet 40 mEq 05-24 11:04: 29 Yes 40meq 40 mEq, Oral, As needed, Abnormal Lab Result, NON-ICU Patients Only, Starting on Mon05/24/24 at 1104, Evaluate Potassium and Phosphorou s level prior to replacemen t. Potassium replacemen t; phosphorou s > 2.4 mg/dL or phosphorou s level not available: For K = 3.5 - 3.9 mEq/L: Replace with KCL 20 mEq. Recheck Potassium with next scheduled lab. For K = 3.1 - 3.4 mEq/L: Replace with KCL 40 mEq.? Recheck Potassium 4 hours after replacemen t. Potassium and Phosphorou s Replacemen t: For K = 3.5 - 4.5 mEq/L AND Phosphorou s 2 - 2.4 mg/dL:? Replace with 2 packets of Potassium phosphate/ sodium phosphate oral powder x 1 dose. For K = 3.5 - 4.5 mEq/L AND Phosphorou s 1.6 - 1.9 mg/dL:? Replace with 2 packets of Potassium phosphate/ sodium phosphate oral powder Q4H x 2 doses. For K = 3.1 - 3.4 mEq/L AND Phosphorou s 2 - 2.4 mg/dL: Replace with KCL 20 mEq PO/NJ AND Potassium Phosphate 15 mMol IVPB over 4 hours. For K = 3.1 - 3.4 mEq/L AND Phosphorou s 1.6 - 1.9 mg/dL: Replace with Potassium Phosphate 30 mMol IVPB over 4 hours. Recheck Potassium and Phosphorou s levels 4 hours after replacemen t complete.N otify MD for K < 3.1 mEq/L or Phosphorou s < 1.6 mg/dL prior to replacemen t. *Use PO or NJ administra tion unless patient is first 12 hours post-op, active GI bleed, acute arrhythmia s, ischemic bowel or NPO. Do Not Crush the ER tablets. DO NOT replace if patient is on dialysis, temperatur e < 35 Celsius, or serum creatinine > 2.0 mg/dL or GFR < 45 mL/min. DO NOT CRUSH.? For patients able to take medication s orally or via feeding tube >/= 14 Burmese, may dissolve each 20 mEq tablet in 4 oz of water.? Allow about 2 minutes for the tablets to disintegra te.? Stir before giving to prepare slurry and administer .? Please exclude patient's with feeding tube less than 14 Burmese (Dobhoff, J-tube, etc) and pediatric and patients. Do not crush or chew. Jenae Lang potassium chloride CR (Klor-Con M20) ER tablet 20 mEq potassium chloride CR (Klor-Con M20) ER tablet 20 mEq 05-24 11:04: 29 Yes 20meq 20 mEq, Oral, As needed, Abnormal Lab Result, For NON-ICU Patients Only, Starting on Mon05/24/24 at 1104, Evaluate Potassium and Phosphorou s level prior to replacemen t. Potassium replacemen t; phosphorou s > 2.4 mg/dL or phosphorou s level not available: For K = 3.5 - 3.9 mEq/L: Replace with KCL 20 mEq. Recheck Potassium with next scheduled lab. For K = 3.1 - 3.4 mEq/L: Replace with KCL 40 mEq.? Recheck Potassium 4 hours after replacemen t. Potassium and Phosphorou s Replacemen t: For K = 3.5 - 4.5 mEq/L AND Phosphorou s 2 - 2.4 mg/dL:? Replace with 2 packets of Potassium phosphate/ sodium phosphate oral powder x 1 dose. For K = 3.5 - 4.5 mEq/L AND Phosphorou s 1.6 - 1.9 mg/dL:? Replace with 2 packets of Potassium phosphate/ sodium phosphate oral powder Q4H x 2 doses. For K = 3.1 - 3.4 mEq/L AND Phosphorou s 2 - 2.4 mg/dL: Replace with KCL 20 mEq PO/NJ AND Potassium Phosphate 15 mMol IVPB over 4 hours. For K = 3.1 - 3.4 mEq/L AND Phosphorou s 1.6 - 1.9 mg/dL: Replace with Potassium Phosphate 30 mMol IVPB over 4 hours. Recheck Potassium and Phosphorou s levels 4 hours after replacemen t complete.N otify MD for K < 3.1 mEq/L or Phosphorou s < 1.6 mg/dL prior to replacemen t. *Use PO or NJ administra tion unless patient is first 12 hours post-op, active GI bleed, acute arrhythmia s, ischemic bowel or NPO. Do Not Crush the ER tablets. DO NOT replace if patient is on dialysis, temperatur e < 35 Celsius, or serum creatinine > 2.0 mg/dL or GFR < 45 mL/min. DO NOT CRUSH.? For patients able to take medication s orally or via feeding tube >/= 14 Burmese, may dissolve each 20 mEq tablet in 4 oz of water.? Allow about 2 minutes for the tablets to disintegra te.? Stir before giving to prepare slurry and administer .? Please exclude patient's with feeding tube less than 14 Burmese (Dobhoff, J-tube, etc) and pediatric and patients. Do not crush or chew. Jenae Lang QUEtiapine (SEROquel) tablet 50 mg QUEtiapine (SEROquel) tablet 50 mg 05-23 21:00: 00 05-24 11:00 :51 No 50mg 50 mg, Oral, Nightly, First dose (after last modificati on) on Mon05/23/24 at 2100 Jenae Lang acetaZOLAMI DE (Diamox) 500 mg in sterile water 5 mL injection acetaZOLAMI DE (Diamox) 500 mg in sterile water 5 mL injection 05-23 09:00: 00 05-24 06:19 :41 No 500mg QD 500 mg, Intravenou s, Administer over 5 Minutes, Daily, First dose on Mon05/23/24 at 0900, For 2 doses, Infuse over 3 minutes. Reconstitu te with at least 5 mL sterile water to provide a solution containing not more than 100 mg/mL. Jenae Lang amiodarone (Pacerone) tablet 200 mg amiodarone (Pacerone) tablet 200 mg 05-22 09:00: 00 Yes 200mg QD 200 mg, Oral, Daily, First dose (after last modificati on) on Mon05/22/24 at 0900 Jenae Lang acetaZOLAMI DE (Diamox) 500 mg in sterile water 5 mL injection acetaZOLAMI DE (Diamox) 500 mg in sterile water 5 mL injection 05-22 08:00: 00 05-22 08:32 :00 No 500mg 500 mg, Intravenou s, Administer over 5 Minutes, Once, On Mon05/22/24 at 0800, For 1 dose, Infuse over 3 minutes. Reconstitu te with at least 5 mL sterile water to provide a solution containing not more than 100 mg/mL. Jenae Appiah Epic QUEtiapine (SEROquel) tablet 100 mg QUEtiapine (SEROquel) tablet 100 mg 05-22 07:00: 00 05-23 11:01 :25 No 100mg [id number] 3D 100 mg, Oral, 3 times daily, First dose on Mon05/22/24 at 0700 Jenae Appiah Epic haloperidol lactate (Haldol) injection 5 mg haloperidol lactate (Haldol) injection 5 mg 05-22 06:45: 14 05-24 12:03 :57 No 5mg Q6H 5 mg, Intramuscu lar, Every 6 hours PRN, agitation, delirium, Starting on Mon05/22/24 at 0645 Jenae Appiah Epic metoprolol tartrate (Lopressor) tablet 25 mg metoprolol tartrate (Lopressor) tablet 25 mg 05-21 18:00: 00 Yes 25mg Q.25D 25 mg, Oral, Every 6 hours scheduled, First dose (after last modificati on) on Mon05/21/24 at 1800 Jenae Appiah Epic amiodarone (Pacerone) tablet 100 mg amiodarone (Pacerone) tablet 100 mg 05-21 13:45: 00 Yes 100mg 100 mg, Oral, Once, On Mon05/21/24 at 1345, For 1 dose Jenae Appiah Epic acetaZOLAMI DE (Diamox) 500 mg in sterile water 5 mL injection acetaZOLAMI DE (Diamox) 500 mg in sterile water 5 mL injection 05-21 09:00: 00 05-21 10:21 :00 No 500mg 500 mg, Intravenou s, Administer over 5 Minutes, Once, On Mon05/21/24 at 0900, For 1 dose, Infuse over 3 minutes. Reconstitu te with at least 5 mL sterile water to provide a solution containing not more than 100 mg/mL. Jenae Appiah Epic amiodarone (Pacerone) tablet 100 mg amiodarone (Pacerone) tablet 100 mg 05-21 09:00: 00 05-21 13:42 :51 No 100mg QD 100 mg, Oral, Daily, First dose (after last modificati on) on Mon05/21/24 at 0900 Jenae Lang metoprolol tartrate (Lopressor) tablet 25 mg metoprolol tartrate (Lopressor) tablet 25 mg 05-20 22:00: 00 05-21 16:14 :31 No 25mg [id number] 3D 25 mg, Oral, Every 8 hours scheduled, First dose (after last modificati on) on Mon05/20/24 at 2200 Jenae Appiah [facility] diphenhydrA MINE (BENADryl) injection 25 mg diphenhydrA MINE (BENADryl) injection 25 mg 05-20 20:48: 25 Yes 25mg Q6H 25 mg, Intravenou s, Every 6 hours PRN, itching, Starting on Mon05/20/24 at 2048 Jenae Appiah [facility] acetaZOLAMI DE (Diamox) 500 mg in sterile water 5 mL injection acetaZOLAMI DE (Diamox) 500 mg in sterile water 5 mL injection 05-20 17:00: 00 05-21 08:26 :39 No 500mg Q.5D 500 mg, Intravenou s, at 60 mL/hr, Administer over 5 Minutes, 2 times daily, First dose on Mon05/20/24 at 1700, For 4 doses Jenae Appiah [facility] losartan (Cozaar) tablet 25 mg losartan (Cozaar) tablet 25 mg 05-20 14:15: 00 Yes 25mg QD 25 mg, Oral, Daily, First dose on Mon05/20/24 at 1415, On hold since Mon05/22/2024 at 1504 until manually unheld Jenae Lang acetaZOLAMI DE (Diamox) 250 mg in sterile water 2.5 mL injection acetaZOLAMI DE (Diamox) 250 mg in sterile water 2.5 mL injection 05-20 14:00: 00 05-20 14:55 :00 No 250mg 250 mg, Intravenou s, at 30 mL/hr, Administer over 5 Minutes, Once, On Mon05/20/24 at 1400, For 1 dose eJnae Lang enoxaparin (Lovenox) syringe 150 mg enoxaparin (Lovenox) syringe 150 mg 05-20 12:30: 00 05-25 12:36 :34 No 1mg/kg Q12H 150 mg (rounded from 152 mg = 1 mg/kg ?152 kg), Subcutaneo us, Every 12 hours, First dose on Mon05/20/24 at 1230 Jenae Lang sodium chloride (NS) 0.9 % flush 10 mL sodium chloride (NS) 0.9 % flush 10 mL 05-20 11:30: 00 Yes 10mL Q.5D 10 mL, Intravenou s, Every 12 hours scheduled, First dose on Mon05/20/24 at 1130, Administer at least once every 12 hours Jenae Lang thiamine (Vitamin B-1) tablet 100 mg thiamine (Vitamin B-1) tablet 100 mg 05-20 11:30: 00 05-24 09:56 :00 No 100mg QD 100 mg, Oral, Daily, First dose on Mon05/20/24 at 1130, For 5 days Jenae Lang folic acid (Folvite) tablet 1 mg folic acid (Folvite) tablet 1 mg 05-20 11:30: 00 05-24 09:55 :00 No 1mg QD 1 mg, Oral, Daily, First dose on Mon05/20/24 at 1130, For 5 days Jenae Lang multivitami n (Theragran- M) tablet 1 tablet multivitami n (Theragran- M) tablet 1 tablet 05-20 11:30: 00 05-24 09:55 :00 No 1{tbl} QD 1 tablet, Oral, Daily, First dose on Mon05/20/24 at 1130, For 5 days Jenae Lang metoprolol tartrate (Lopressor) tablet 50 mg metoprolol tartrate (Lopressor) tablet 50 mg 05-20 11:30: 00 05-20 13:51 :50 No 50mg Q.5D 50 mg, Oral, Every 12 hours scheduled, First dose on Mon05/20/24 at 1130 Jenae Lang amiodarone (Pacerone) tablet 200 mg amiodarone (Pacerone) tablet 200 mg 05-20 11:30: 00 05-20 13:37 :34 No 200mg QD 200 mg, Oral, Daily, First dose on Mon05/20/24 at 1130 Jenae Lang diphenhydrA MINE (BENADryl) injection 25 mg diphenhydrA MINE (BENADryl) injection 25 mg 05-20 05:00: 00 05-20 05:23 :00 No 25mg 25 mg, Intravenou s, Once, On Mon05/20/24 at 0500, For 1 dose Jenae Lang diphenhydrA MINE (BENADryl) injection 25 mg diphenhydrA MINE (BENADryl) injection 25 mg 05-19 14:30: 00 05-19 16:07 :00 No 25mg 25 mg, Intravenou s, Once, On Mon05/19/24 at 1430, For 1 dose Jenae Lang calcium gluconate 1 g in sodium chloride 0.9 % 50 mL IVPB-MB+ calcium gluconate 1 g in sodium chloride 0.9 % 50 mL IVPB-MB+ 05-19 05:05: 09 05-24 11:04 :58 No 1g 1 g, Intravenou s, at 100 mL/hr, Administer over 30 Minutes, As needed, Abnormal Lab Result, FOR ICU USE ONLY, Starting on Mon05/19/24 at 0505, For ionized calcium 0.8 to 0.9 mmol/L: Replace with calcium gluconate 1 gram IVPB over 30 minutes For ionized calcium </= 0.79 mmol/L: Replace with calcium gluconate 2 grams IVPB over 30 minutes and notify Recheck Ionized Calcium level 2 hours after Calcium replacemen t complete. Mini-Bag Plus bag. Break seal and mix before use, as follows: For liquid drug vials, skip to step 2. 1. Hold bag with vial down. Squeeze solution into vial until half-full. Shake to suspend drug in solution. 2. Hold bag with vial upside down. Squeeze bag to force air into vial, then release to drain suspended drug from vial into bag. 3. Repeat above until vial is empty of drug and solution is thoroughly mixed. Ensure drug is completely dissolved. Do not remove drug vial. 4. Remove port protector, attach admin set per its instructio ns, then hang container from IV pole and prime set per directions . Do not use in series connection s. 5. Ensure the vial is empty of drug and in solution, then administer medication as ordered. Use within specified BUD. Jenae Lang magnesium sulfate IVPB 2 g magnesium sulfate IVPB 2 g 05-19 05:05: 09 05-24 11:04 :58 No 2g 2 g, Intravenou s, Administer over 4 Hours, As needed, Abnormal Lab Result, FOR ICU USE ONLY, Starting on 05/19/24 at 0505, For magnesium 1.6 to 1.8 mg/dL: Replace with Mg Sulfate 2 grams IVPB over 4 hours x 1 dose. For magnesium 1.9 to 2.3 mg/dL(in CV surgery patients only): Replace with Mg Sulfate 2 grams IVPB over 4 hours X 1 dose> For magnesium </= 1.5 mg/dL: Replace with Mg Sulfate 2 grams IVPB over 4 hours X 2 doses. Notify MD if magnesium </= 1.1 mg/dL Recheck Magnesium level 2 hours after Magnesium replacemen t complete. Jenae Appiah Epic dexmedeTOMI Dine in NS (Precedex) 400 mcg in 100 mL (4 mcg/mL) infusion dexmedeTOMI Dine in NS (Precedex) 400 mcg in 100 mL (4 mcg/mL) infusion 05-18 19:30: 00 05-21 10:39 :55 No .2ug/kg /h 0.2-1.5 mcg/kg/hr ?152 kg (7.6-57 mL/hr), Intravenou s, Continuous , Starting on 05/18/24 at 1930, Infusion Type: Titrate, Initial Dose (mcg/kg/hr ): 0.2, Titrate by (mcg/kg/hr ): 0.1, Every (minutes): 30, Goal: Refer to Target Arousal RASS Score on Storyboard , Max Dose (mcg/kg/hr ): 1.5 Memoria john Edison Epic furosemide (Lasix) injection 40 mg furosemide (Lasix) injection 40 mg 05-18 17:00: 00 05-23 14:44 :03 No 40mg Q8H 40 mg, Intravenou s, Every 8 hours, First dose (after last modificati on) on 05/18/24 at 1700 Memoria l Td Epic potassium chloride IVPB 10 mEq potassium chloride IVPB 10 mEq 05-18 02:45: 00 05-18 07:42 :00 No 10meq Q1H 10 mEq, Intravenou s, at 100 mL/hr, Administer over 1 Hours, Every 1 hour, First dose on 05/18/24 at 0245, For 4 doses, Central-li ne infusion highly recommende d for infusions >10 mEq/hour Memoria john Td Epic dextrose 50 % solution 25 g dextrose 50 % solution 25 g 05-18 02:30: 00 05-18 02:30 :00 No 25g 25 g, Intravenou s, Once, On Mon05/18/24 at 0230, For 1 dose Memoria john Edison Epic magnesium sulfate in D5W IVPB 1 g magnesium sulfate in D5W IVPB 1 g 05-18 02:30: 00 05-18 03:37 :00 No 1g 1 g, Intravenou s, at 100 mL/hr, Administer over 1 Hours, Once, On 05/18/24 at 0230, For 1 dose Memoria l Edison Epic dextrose 50 % solution - Pyxis Override Pull dextrose 50 % solution - Pyxis Override Pull 05-18 02:10: 47 05-18 02:30 :00 No Starting on 05/18/24 at 0210, For 1 dose, Created by cabinet override Memoria l Edison Epic dextrose 50 % solution 25 g dextrose 50 % solution 25 g 05-17 17:15: 00 05-17 17:39 :00 No 25g 25 g, Intravenou s, Once, On Mon05/17/24 at 1715, For 1 dose Jenae Lang cefTRIAXone (Rocephin) 2 g in sodium chloride 0.9 % 100 mL IVPB-MB+ cefTRIAXone (Rocephin) 2 g in sodium chloride 0.9 % 100 mL IVPB-MB+ 05-17 12:00: 00 05-21 12:38 :00 No 2g 2 g, Intravenou s, Every 24 hours, 5 doses, First dose on Mon05/17/24 at 1200, Last dose on Mon05/21/24 at 1200 Jenae Appiah Epic furosemide (Lasix) injection 40 mg furosemide (Lasix) injection 40 mg 05-17 09:00: 00 05-18 12:30 :35 No 40mg Q12H 40 mg, Intravenou s, Every 12 hours, First dose on Mon05/17/24 at 0900 Jenae Appiah Epic dexmedeTOMI Dine in NS (Precedex) 400 mcg in 100 mL (4 mcg/mL) infusion dexmedeTOMI Dine in NS (Precedex) 400 mcg in 100 mL (4 mcg/mL) infusion 05-17 06:15: 00 05-18 12:29 :58 No .2ug/kg /h 0.2-1.5 mcg/kg/hr ?152 kg (7.6-57 mL/hr), Intravenou s, Continuous , Starting on Mon05/17/24 at 0615, Infusion Type: Titrate, Initial Dose (mcg/kg/hr ): 0.2, Titrate by (mcg/kg/hr ): 0.1, Every (minutes): 30, Goal: Refer to Target Arousal RASS Score on Storyboard , Max Dose (mcg/kg/hr ): 1.5 Jenae Appiah Epic dexmedeTOMI Dine in NS (Precedex) 400 mcg in 100 mL (4 mcg/mL) infusion - Pyxis Override Pull dexmedeTOMI Dine in NS (Precedex) 400 mcg in 100 mL (4 mcg/mL) infusion - Pyxis Override Pull 05-17 05:56: 37 05-17 06:14 :00 No Starting on Mon05/17/24 at 0556, For 1 dose, Created by cabinet override Jenae Lang iohexol (OMNIPaque) 350 MG/ML injection 75 mL iohexol (OMNIPaque) 350 MG/ML injection 75 mL 05-17 00:11: 45 05-17 00:12 :00 No 75mL 75 mL, Intravenou s, Once in imaging, Starting on Mon05/17/24 at 0011, For 1 dose Jenae Lang furosemide (Lasix) injection 60 mg furosemide (Lasix) injection 60 mg 05-16 23:10: 00 Yes 60mg 60 mg, Intravenou s, Once, On Mon05/16/24 at 2310, For 1 dose Jenae Lang ipratropium -albuterol (Duo-Neb) 0.5-2.5 mg/3 mL nebulizer solution 3 mL ipratropium -albuterol (Duo-Neb) 0.5-2.5 mg/3 mL nebulizer solution 3 mL 05-16 15:00: 00 05-16 19:33 :00 No 3mL 3 mL, Nebulizati on, Once, On Mon05/16/24 at 1500, For 1 dose Jenae Lang sodium chloride (NS) 0.9 % flush 10 mL sodium chloride (NS) 0.9 % flush 10 mL 05-16 14:55: 07 Yes 10mL [Order 1 Start] Name: Insert peripheral IV Signed Summary: Once, On Mon05/16/24 at 1456, For 1 occurrence [Order 1 End] [Order 2 Start] Name: Saline lock IV Signed Summary: Once, On Mon05/16/24 at 1456, For 1 occurrence [Order 2 End] [Order 3 Start] Name: sodium chloride (NS) 0.9 % flush 10 mL Signed Summary: 10 mL, Intravenou s, As needed, line care, Starting on Mon05/16/24 at 1455 [Order 3 End] Jenae Lang Lactulose 10 GM/15ML oral Solution 05-08 00:00: 00 Yes [id number] 20g [id number] 3D Take 30 mL (20 g total) by mouth 3 times daily. Angela lopez Furosemide 40 MG oral Tablet 3-05 00:00: 00 Yes [id number] 40mg Q.5D Take 1 tablet (40 mg total) by mouth 2 times daily. Angela lopez Warfarin (COUMADIN) 5 MG oral Tablet 2-10 00:00: 00 Yes [id number] 5mg QD Take 1 tablet (5 mg total) by mouth daily. Angela lopez metoprolol succinate XL (Toprol-XL) 100 MG 24 hr tablet metoprolol succinate XL (Toprol-XL) 100 MG 24 hr tablet - 00:00: 00 03-08 23:59 :00 No 100mg QD Take 1 tablet by mouth 1 time each day. Do not crush or chew. Jenae Lang furosemide (Lasix) tablet 40 mg furosemide (Lasix) tablet 40 mg 03-07 16:00: 00 Yes 40mg 40 mg, Oral, 2 times daily (10/05), First dose on Mon03/07/24 at 1600 Jenae Lang furosemide (Lasix) 40 MG tablet furosemide (Lasix) 40 MG tablet 03-07 00:00: 00 04-06 23:59 :00 No 40mg Q.5D Take 1 tablet by mouth in the morning and 1 tablet in the evening. eJnae Lang amiodarone (Pacerone) 200 MG tablet amiodarone (Pacerone) 200 MG tablet 03-07 00:00: 00 04-06 23:59 :00 No 200mg QD Take 1 tablet by mouth 1 time each day. CHANGED BY ON 02/28/24 Jenae Lang acetaZOLAMI DE (Diamox) 250 mg in sterile water 2.5 mL injection acetaZOLAMI DE (Diamox) 250 mg in sterile water 2.5 mL injection 03-06 15:30: 00 03-06 16:13 :00 No 250mg 250 mg, Intravenou s, Administer over 3 Minutes, Once, On Mon03/06/24 at 1530, For 1 dose, Infuse over 3 minutes. Reconstitu te with at least 5 mL sterile water to provide a solution containing not more than 100 mg/mL. Jenae Lang apixaban (Eliquis) tablet 5 mg apixaban (Eliquis) tablet 5 mg 03-05 22:00: 00 Yes 5mg Q.5D 5 mg, Oral, 2 times daily, First dose on Mon03/05/24 at 2200 Jenae Lang losartan (Cozaar) 25 MG tablet losartan (Cozaar) 25 MG tablet 03-05 16:15: 00 Yes 25mg QD Take 25 mg by mouth 1 time each day. Jenae Lang apixaban (Eliquis) tablet 5 mg apixaban (Eliquis) tablet 5 mg 03-05 12:30: 00 Yes 5mg 5 mg, Oral, Once, On Mon03/05/24 at 1230, For 1 dose Jenae Lang tamsulosin (Flomax) 24 hr capsule 0.4 mg tamsulosin (Flomax) 24 hr capsule 0.4 mg 03-05 11:15: 00 Yes .4mg QD 0.4 mg, Oral, Daily, First dose on Mon03/05/24 at 1115 Jenae Lang furosemide (Lasix) 100 mg in sodium chloride 0.9 % 100 mL (1 mg/mL) infusion furosemide (Lasix) 100 mg in sodium chloride 0.9 % 100 mL (1 mg/mL) infusion 03-05 11:15: 00 03-07 10:21 :29 No 5mg/h 5 mg/hr (5 mL/hr), Intravenou s, Continuous , Starting on Mon03/05/24 at 1130 Jenae Lang sodium chloride (NS) 0.9 % flush 10 mL sodium chloride (NS) 0.9 % flush 10 mL 03-05 11:00: 00 Yes 10mL Q.5D 10 mL, Intravenou s, Every 12 hours scheduled, First dose on Mon03/05/24 at 1100, Administer at least once every 12 hours Jenae Lang digoxin (Lanoxin) tablet 125 mcg digoxin (Lanoxin) tablet 125 mcg 03-05 11:00: 00 Yes 125ug QD 125 mcg, Oral, Daily, First dose on Mon03/05/24 at 1100 Jenae Lang amiodarone (Pacerone) tablet 200 mg amiodarone (Pacerone) tablet 200 mg 03-05 11:00: 00 Yes 200mg QD 200 mg, Oral, Daily, First dose on Mon03/05/24 at 1100 Jenae Lang magnesium oxide (Mag-Ox) tablet 800 mg magnesium oxide (Mag-Ox) tablet 800 mg 03-05 10:51: 03 Yes 800mg Jenae Lang magnesium sulfate IVPB 4 g magnesium sulfate IVPB 4 g 03-05 10:51: 03 Yes 4g Jenae Appiah Epic magnesium sulfate IVPB 2 g magnesium sulfate IVPB 2 g 03-05 10:51: 03 Yes 2g Jenae Lang magnesium sulfate in D5W IVPB 1 g magnesium sulfate in D5W IVPB 1 g 03-05 10:51: 03 Yes 1g Jenae Lang potassium chloride IVPB 10 mEq potassium chloride IVPB 10 mEq 03-05 10:51: 03 Yes 10meq Jenae Appiah Epic Potassium chloride solution 20 mEq Potassium chloride solution 20 mEq 03-05 10:51: 03 Yes 20meq Jenae Lang potassium chloride CR (Klor-Con M20) ER tablet 40 mEq potassium chloride CR (Klor-Con M20) ER tablet 40 mEq 03-05 10:51: 03 Yes 40meq Jenae Appiah Epic potassium chloride CR (Klor-Con M20) ER tablet 20 mEq potassium chloride CR (Klor-Con M20) ER tablet 20 mEq 0 03-05 10:51: 03 Yes 20meq Jenae Appiah Epic glucagon injection 1 mg glucagon injection 1 mg 03-05 10:51: 03 Yes 1mg Jenae Appiah Epic dextrose 50 % solution 25 g dextrose 50 % solution 25 g 03-05 10:51: 03 Yes 25g Jenae Aminann Epic dextrose 50 % solution 12.5 g dextrose 50 % solution 12.5 g 03-05 10:51: 03 Yes 12.5g [facility] sodium chloride (NS) 0.9 % flush 10 mL sodium chloride (NS) 0.9 % flush 10 mL 03-05 10:51: 03 Yes 10mL Jenae Lang metoprolol succinate XL (Toprol-XL) 24 hr tablet 100 mg metoprolol succinate XL (Toprol-XL) 24 hr tablet 100 mg 03-05 09:00: 00 Yes 100mg QD 100 mg, Oral, Daily, First dose on Mon03/05/24 at 0900, Do not crush or chew. Jenae Lang melatonin tablet 3 mg melatonin tablet 3 mg 03-04 21:44: 39 Yes 3mg QD 3 mg, Oral, Nightly PRN, sleep, Starting on Mon03/04/24 at 2144 Jenae Lang ipratropium (Atrovent) 0.02 % nebulizer solution 0.5 mg ipratropium (Atrovent) 0.02 % nebulizer solution 0.5 mg 03-04 20:00: 00 Yes .5mg Q.25D 0.5 mg, Nebulizati on, Every 6 hours RT, First dose on Mon03/04/24 at 2000 Jenae Lang traMADol (Ultram) tablet 50 mg traMADol (Ultram) tablet 50 mg 03-04 17:25: 07 Yes 50mg Q6H 50 mg, Oral, Every 6 hours PRN, moderate pain (4-6), Starting on Mon03/04/24 at 1725 Jenae Lang polyethylen e glycol (PEG) 3350 (Miralax) packet 17 g polyethylen e glycol (PEG) 3350 (Miralax) packet 17 g 03-04 17:25: 07 Yes 17g Q24H 17 g, Oral, Daily PRN, constipati on, Starting on Mon03/04/24 at 1725, Dissolve 17 g in 120 to 240 mL (4 to 8 ounces) of beverage. Jenae Lang ondansetron (Zofran) injection 4 mg ondansetron (Zofran) injection 4 mg 03-04 17:25: 07 Yes 4mg Q6H 4 mg, Intravenou s, Every 6 hours PRN, nausea, vomiting, Starting on Mon03/04/24 at 1725 [facility] PF [facility] 2 mg morphine PF injection 2 mg 03-04 17:25: 07 Yes 2mg Q4H 2 mg, Intravenou s, Every 4 hours PRN, severe pain (7-10), Starting on Mon03/04/24 at 1725 [facility] labetalol injection 10 mg labetalol injection 10 mg 03-04 17:25: 07 Yes 10mg Q6H 10 mg, Intravenou s, Every 6 hours PRN, high blood pressure, For SBP >165 DBP >110. Do not give if HR <50, [facility]03/04/24 [facility]25 [facility] bisacodyl (Dulcolax) suppository 10 mg bisacodyl (Dulcolax) suppository 10 mg 03-04 17:25: 07 Yes 10mg Q24H 10 mg, Rectal, Daily PRN, constipati on, Starting on Mon03/04/24 at 1725 [facility] dextrometho rphan-guaiF ENesin (Robitussin -DM) 10-100 MG/5ML liquid 5 mL dextrometho rphan-guaiF ENesin (Robitussin -DM) 10-100 MG/5ML liquid 5 mL 03-04 17:25: 07 Yes 5mL Q4H 5 mL, Oral, Every 4 hours PRN, cough, Starting on Mon03/04/24 at 1725 [facility] acetaminoph en (Tylenol) tablet 650 mg acetaminoph en (Tylenol) tablet 650 mg 03-04 17:25: 07 Yes 650mg Q6H 650 mg, Oral, Every 6 hours PRN, mild pain (1-3), fever, Starting on Mon03/04/24 at 1725 [facility] furosemide (Lasix) injection 40 mg furosemide (Lasix) injection 40 mg 03-04 17:10: 00 03-05 11:15 :50 No 40mg Q12H 40 mg, Intravenou s, Every 12 hours, First dose on Mon03/04/24 at 1710 [facility] Bilateral Injection: Methylpredn isolone Acetate (Depo-Medro l) 40 mg/ml, 80mg - Physician Administere d ([id number]) 02-28 09:55: 24 No [id number] 80mg 80 mg, Physician Administer ed, ONCE, 1 dose, On Casandra 02/29/24 at 0945 Angela lopez Furosemide (LASIX) 20 MG oral Tablet 02-27 00:00: 00 Yes [id number] 20mg Q.5D Take 1 tablet (20 mg total) by mouth 2 times daily. Angela lopez Apixaban (ELIQUIS) 5 MG oral Tablet 02-27 00:00: 00 Yes [id number] 5mg Q.5D Take 1 tablet (5 mg total) by mouth 2 times daily. Angela lopez Losartan Potassium 25 MG oral Tablet 02-27 00:00: 00 Yes [id number] 25mg QD Take 1 tablet (25 mg total) by mouth daily. Angela lopez Metoprolol Succinate 100 MG oral TABLET SR 24 HR 02-27 00:00: 00 Yes 100mg QD Take 1 tablet (100 mg total) by mouth daily. Angela lopez Digoxin 125 MCG oral Tablet 02-27 00:00: 00 Yes [id number] 125ug QD Take 1 tablet (125 mcg total) by mouth daily. Angela lopez Amiodarone HCl 200 MG oral Tablet 02-27 00:00: 00 Yes 200mg QD Take 1 tablet (200 mg total) by mouth daily. Angela lopez Apixaban (ELIQUIS) 5 MG oral Tablet 02-25 00:00: 00 Yes [id number] 5mg Q.5D Take 1 tablet (5 mg total) by mouth 2 times daily. Angela lopez Digoxin 125 MCG oral Tablet 02-25 00:00: 00 Yes [id number] 125ug QD Take 1 tablet (125 mcg total) by mouth daily. Angela lopez Furosemide (LASIX) 20 MG oral Tablet 02-25 00:00: 00 Yes [id number] 20mg Q.5D Take 1 tablet (20 mg total) by mouth 2 times daily. Angela lopez Metoprolol Tartrate (LOPRESSOR) 25 MG oral Tablet 02-25 00:00: 00 Yes [id number] 75mg Take 3 tablets (75 mg total) by mouth every 12 hours. Angela lopez Thiamine HCl 100 MG oral Tablet 02-25 00:00: 00 Yes [id number] 100mg QD Take 1 tablet (100 mg total) by mouth daily. Angela lopez Folic Acid 1 MG oral tablet 02-25 00:00: 00 Yes [id number] 1mg QD Take 1 tablet (1 mg total) by mouth daily. Angela lopez Tamsulosin HCl 0.4 MG oral Capsule 02-25 00:00: 00 Yes [id number] 9100 .4mg QD Take 1 capsule (0.4 mg total) by mouth daily. Angela lopez tamsulosin (Flomax) 0.4 MG 24 hr capsule tamsulosin (Flomax) 0.4 MG 24 hr capsule 02-22 00:00: 00 Yes .4mg QD Take 1 capsule by mouth 1 time each day. Jenae Lang digoxin (Lanoxin) 125 MCG tablet digoxin (Lanoxin) 125 MCG tablet 02-22 00:00: 00 03-24 23:59 :00 No 125ug QD Take 1 tablet by mouth 1 time each day. Jenae Lang folic acid (Folvite) 1 MG tablet folic acid (Folvite) 1 MG tablet 02-22 00:00: 00 03-07 00:00 :00 No 1mg QD Take 1 tablet by mouth 1 time each day for 7 days. Jenae Lang thiamine (Vitamin B-1) 100 MG tablet thiamine (Vitamin B-1) 100 MG tablet 02-22 00:00: 00 03-07 00:00 :00 No 100mg QD Take 1 tablet by mouth 1 time each day for 7 days. Do not start before February 23, 2024. Jenae Appiah [facility] metoprolol tartrate (Lopressor) tablet 75 mg metoprolol tartrate (Lopressor) tablet 75 mg 02-21 21:00: 00 Yes 75mg Q.5D 75 mg, Oral, Every 12 hours scheduled, First dose on [facility] 02/22/24 at 2100 Jenae Appiah [facility] tamsulosin (Flomax) 24 hr capsule 0.4 mg tamsulosin (Flomax) 24 hr capsule 0.4 mg 02-21 11:45: 00 Yes .4mg QD 0.4 mg, Oral, Daily, First dose on [facility] 02/22/24 at 1145 Jenae Appiah [facility] metoprolol tartrate (Lopressor) tablet 25 mg metoprolol tartrate (Lopressor) tablet 25 mg 02-21 09:00: 00 Yes 25mg 25 mg, Oral, Once, On [facility] 02/22/24 at 0900, For 1 dose, One time dose to total to 75 mg this morning Jenae Appiah [facility] apixaban (Eliquis) 5 MG tablet apixaban (Eliquis) 5 MG tablet 02-21 00:00: 00 03-23 23:59 :00 No 5mg Q.5D Take 1 tablet by mouth in the morning and 1 tablet in the evening. Jenae Appiah [facility] amiodarone (Pacerone) 200 MG tablet amiodarone (Pacerone) 200 MG tablet 02-21 00:00: 00 03-07 00:00 :00 No 400mg QD Take 2 tablets by mouth 1 time each day for 14 days. Jenae Appiah [facility] metoprolol tartrate (Lopressor) 25 MG tablet metoprolol tartrate (Lopressor) 25 MG tablet 02-21 00:00: 00 03-07 00:00 :00 No 75mg Q.5D Take 3 tablets by mouth in the morning and 3 tablets before bedtime. Jenae Appiah [facility] furosemide (Lasix) 20 MG tablet furosemide (Lasix) 20 MG tablet 02-21 00:00: 00 03-07 00:00 :00 No 20mg Q.5D Take 1 tablet by mouth in the morning and 1 tablet in the evening. [facility] john Appiah [facility] metoprolol tartrate (Lopressor) tablet 50 mg metoprolol tartrate (Lopressor) tablet 50 mg 02-20 12:00: 00 02-21 08:37 :15 No 50mg Q.[id number] 3D 50 mg, Oral, Every 8 hours scheduled, First dose (after last modificati on) on Mon02/21/24 at 1200 [facility] apixaban (Eliquis) tablet 5 mg apixaban (Eliquis) tablet 5 mg 02-20 10:15: 00 Yes 5mg Q.5D 5 mg, Oral, 2 times daily, First dose on Mon02/21/24 at 1015 [facility] john Appiah [facility] folic acid (Folvite) tablet 1 mg folic acid (Folvite) tablet 1 mg 02-20 09:00: 00 Yes 1mg QD 1 mg, Oral, Daily, First dose on Mon02/21/24 at 0900 [facility] john Appiah [facility] thiamine (Vitamin B-1) tablet 100 mg thiamine (Vitamin B-1) tablet 100 mg 2023-02 09:00: 00 Yes 100mg QD 100 mg, Oral, Daily, First dose on Mon02/20/24 at 0900 [facility] john Appiah [facility] furosemide (Lasix) injection 20 mg furosemide (Lasix) injection 20 mg 2023-02 09:00: 00 Yes 20mg Q8H 20 mg, Intravenou s, Every 8 hours, First dose on Mon02/20/24 at 0900 [facility] john Appiah [facility] digoxin (Lanoxin) tablet 125 mcg digoxin (Lanoxin) tablet 125 mcg 2023-02 09:00: 00 Yes 125ug QD 125 mcg, Oral, Daily, First dose on Mon02/20/24 at 0900 [facility] john Appiah [facility] metoprolol tartrate (Lopressor) tablet 25 mg metoprolol tartrate (Lopressor) tablet 25 mg 2023-02 04:00: 00 02-20 08:34 :14 No 25mg Q.[id number] 3D 25 mg, Oral, Every 8 hours scheduled, First dose (after last modificati on) on Mon02/20/24 at 0400 [facility] digoxin (Lanoxin) injection 250 mcg digoxin (Lanoxin) injection 250 mcg 2023-02 22:00: 00 Yes 250ug 250 mcg, Intravenou s, Administer over 5 Minutes, Once, On Mon02/19/24 at 2200, For 1 dose, Give as slow IVP over >/= 5 minutes [facility] john [facility] Potassium Phosphates 30 mmol in sodium chloride 0.9 % 250 mL infusion Potassium Phosphates 30 mmol in sodium chloride 0.9 % 250 mL infusion 2023-02 17:15: 00 02-18 22:32 :00 No 30mmol 30 mmol, Intravenou s, Administer over 4 Hours, Once, On Mon02/19/24 at 1715, For 1 dose, Do not infuse phosphorou s concurrent ly in the same line as TPN or IVF that contains calcium. For double lumen central lines, phosphorou s may be infused in a separate lumen from TPN. [facility] amiodarone (Pacerone) tablet 400 mg amiodarone (Pacerone) tablet 400 mg 2023-02 17:00: 00 Yes 400mg Q.5D 400 mg, Oral, 2 times daily, First dose on Mon02/19/24 at 1700 [facility] digoxin (Lanoxin) injection 500 mcg digoxin (Lanoxin) injection 500 mcg 2023-02 15:30: 00 Yes 500ug 500 mcg, Intravenou s, Administer over 5 Minutes, Once, On Mon02/19/24 at 1530, For 1 dose, Give as slow IVP over >/= 5 minutes [facility] john [facility] metoprolol tartrate (Lopressor) tablet 12.5 mg metoprolol tartrate (Lopressor) tablet 12.5 mg 2023-02 15:15: 00 02-18 21:45 :16 No 12.5mg Q.[id number] 3D 12.5 mg, Oral, Every 8 hours scheduled, First dose on Mon02/19/24 at 1515 [facility] john T[facility] Epic sodium chloride (Greenlee) 0.65 % nasal spray 1 spray sodium chloride (Greenlee) 0.65 % nasal spray 1 spray 2023-02 09:49: 04 Yes 1{spray } 1 spray, Each Nostril, As needed, dry nose, Starting on Mon02/19/24 at 0949 Jenae Lang pantoprazol e (ProtoNix) 40 mg in sodium chloride (PF) 0.9 % 10 mL IVP pantoprazol e (ProtoNix) 40 mg in sodium chloride (PF) 0.9 % 10 mL IVP 2023-02 13:00: 00 02-19 08:47 :25 No 40mg QD 40 mg, Intravenou s, Every 24 hours scheduled, First dose on Mon02/18/24 at 1300, Until Discontinu ed Jenae Appiah Epic PHENobarbit al (Luminal) injection 130 mg PHENobarbit al (Luminal) injection 130 mg 2023-02 10:09: 14 02-19 08:47 :25 No 130mg 130 mg, Intravenou s, Every 30 min PRN, alcohol withdrawal , Starting on Mon02/18/24 at 1009, For 6 doses, Administer no faster than 1 mg/kg/grace te, to a max of 60 mg/min in adults. Jenae Lang PHENobarbit al (Luminal) injection 130 mg PHENobarbit al (Luminal) injection 130 mg 2023-02 10:00: 00 02-17 10:53 :00 No 130mg 130 mg, Intravenou s, Once, On Mon02/18/24 at 1000, For 1 dose, Administer no faster than 1 mg/kg/grace te, to a max of 60 mg/min in adults. Jenae Lang acetaZOLAMI DE (Diamox) 250 mg in sterile water 2.5 mL injection acetaZOLAMI DE (Diamox) 250 mg in sterile water 2.5 mL injection 2023-02 09:30: 00 02-17 10:05 :00 No 250mg 250 mg, Intravenou s, at 30 mL/hr, Administer over 5 Minutes, Once, On Mon02/18/24 at 0930, For 1 dose, Reconstitu te vial w/ 5 mL SWFI and draw up 2.5 mL for dose Kristofernathan john Appiah Epic acetaZOLAMI DE (Diamox) 250 mg in sterile water 2.5 mL injection acetaZOLAMI DE (Diamox) 250 mg in sterile water 2.5 mL injection 2023-02 06:00: 00 02-17 06:44 :00 No 250mg 250 mg, Intravenou s, at 30 mL/hr, Administer over 5 Minutes, Once, On Mon02/18/24 at 0600, For 1 dose, Reconstitu te vial w/ 5 mL SWFI and draw up 2.5 mL for dose Kristofernathan john Appiah Epic acetaZOLAMI DE (Diamox) 250 mg in sterile water 2.5 mL injection acetaZOLAMI DE (Diamox) 250 mg in sterile water 2.5 mL injection 2023-02 10:00: 00 02-16 10:56 :00 No 250mg 250 mg, Intravenou s, at 30 mL/hr, Administer over 5 Minutes, Once, On 02/17/24 at 1000, For 1 dose, Reconstitu te vial w/ 5 mL SWFI and draw up 2.5 mL for dose Jenae Appiah Epic folic acid 1 mg in sodium chloride 0.9 % 50 mL IVPB folic acid 1 mg in sodium chloride 0.9 % 50 mL IVPB 2023-02 09:00: 00 02-19 10:41 :43 No 1mg QD 1 mg, Intravenou s, at 100 mL/hr, Administer over 30 Minutes, Daily, First dose on 02/17/24 at 0900 Jenae Appiah Epic thiamine (Vitamin B1) 250 mg in sodium chloride 0.9 % 100 mL IVPB thiamine (Vitamin B1) 250 mg in sodium chloride 0.9 % 100 mL IVPB 2023-02 09:00: 00 02-19 08:49 :26 No 250mg QD 250 mg, Intravenou s, at 200 mL/hr, Administer over 30 Minutes, Daily, First dose on 02/17/24 at 0900, For 3 doses Jenae Appiah Epic calcium gluconate 1 g in sodium chloride 0.9 % 50 mL IVPB-MB+ calcium gluconate 1 g in sodium chloride 0.9 % 50 mL IVPB-MB+ 2023-02 05:00: 41 Yes 1g 1 g, Intravenou s, at 100 mL/hr, Administer over 30 Minutes, As needed, Abnormal Lab Result, FOR ICU USE ONLY, Starting on 02/17/24 at 0500, For ionized calcium 0.8 to 0.9 mmol/L: Replace with calcium gluconate 1 gram IVPB over 30 minutes For ionized calcium </= 0.79 mmol/L: Replace with calcium gluconate 2 grams IVPB over 30 minutes and notify MD Recheck Ionized Calcium level 2 hours after Calcium replacemen t complete. Mini-Bag Plus bag. Break seal and mix before use, as follows: For liquid drug vials, skip to step 2. 1. Hold bag with vial down. Squeeze solution into vial until half-full. Shake to suspend drug in solution. 2. Hold bag with vial upside down. Squeeze bag to force air into vial, then release to drain suspended drug from vial into bag. 3. Repeat above until vial is empty of drug and solution is thoroughly mixed. Ensure drug is completely dissolved. Do not remove drug vial. 4. Remove port protector, attach admin set per its instructio ns, then hang container from IV pole and prime set per directions . Do not use in series connection s. 5. Ensure the vial is empty of drug and in solution, then administer medication as ordered. Use within specified BUD. Jenae Appiah [facility] magnesium sulfate IVPB 2 g magnesium sulfate IVPB 2 g 2023-02 05:00: 41 Yes 2g 2 g, Intravenou s, Administer over 4 Hours, As needed, Abnormal Lab Result, FOR ICU USE ONLY, Starting on 02/17/24 at 0500, For magnesium 1.6 to 1.8 mg/dL: Replace with Mg Sulfate 2 grams IVPB over 4 hours x 1 dose. For magnesium 1.9 to 2.3 mg/dL(in CV surgery patients only): Replace with Mg Sulfate 2 grams IVPB over 4 hours X 1 dose> For magnesium </= 1.5 mg/dL: Replace with Mg Sulfate 2 grams IVPB over 4 hours X 2 doses. Notify MD if magnesium </= 1.1 mg/dL Recheck Magnesium level 2 hours after Magnesium replacemen t complete. Jenae [employer] potassium & sodium phosphates (Phos-NaK) 280-160-250 MG packet 2 packet potassium & sodium phosphates (Phos-NaK) 280-160-250 MG packet 2 packet 2023-02 05:00: 41 Yes 2{packe t} Q4H [Order 1 Start] Name: potassium & sodium phosphates (Phos-NaK) 280-160-25 0 MG packet 2 packet Signed Summary: 2 packet, Oral, Every 4 hours PRN, Abnormal Lab Result, FOR ICU USE ONLY, Starting on 02/17/24 at 0500, For phosphorus 1.6 to 3.0 mg/dL: Replace with potassium phosphate- sodium phosphate 250 mg-280 mg-160 mg oral powder 2 packets PO every 4 hours x 6 doses. Do Not Use if Potassium > 5 mEq/L Notify MD for phosphorus </= 1.4 mg/dL Recheck Phosphorus level 2 hours after Phosphorou s replacemen t complete. [Order 1 End] [Order 2 Start] Name: potassium & sodium phosphates (Phos-NaK) 280-160-25 0 MG packet 2 packet Signed Summary: 2 packet, Per G Tube, Every 4 hours PRN, Abnormal Lab Result, FOR ICU USE ONLY, Starting on 02/17/24 at 0500, For phosphorus 1.6 to 3.0 mg/dL: Replace with potassium phosphate- sodium phosphate 250 mg-280 mg-160 mg oral powder 2 packets PO every 4 hours x 6 doses. Do Not Use if Potassium > 5 mEq/L Notify MD for phosphorus </= 1.4 mg/dL Recheck Phosphorus level 2 hours after Phosphorou s replacemen t complete. [Order 2 End] Jenae Lang sodium phosphates 45 mmol in sodium chloride 0.9 % 100 mL IVPB sodium phosphates 45 mmol in sodium chloride 0.9 % 100 mL IVPB 2023-02 05:00: 41 Yes 45mmol 45 mmol, Intravenou s, at 25 mL/hr, Administer over 4 Hours, As needed, Abnormal Lab Result, FOR ICU USE ONLY, Starting on 02/17/24 at 0500, For phosphorus </= 1.5 mg/dL: Replace with NaPhos 45 mmol IVPB over 4 hours x 1 dose, and potassium phosphate- sodium phosphate 250 mg-280 mg-160 mg oral powder 2 packets PO/GT every 4 hours x 6 doses. Notify MD if phosphorus </= 1.4 mg/dL. Recheck Phosphorus level 2 hours after Phosphorou s replacemen t complete. Jenae Lang potassium chloride IVPB 20 mEq potassium chloride IVPB 20 mEq 2023-02 05:00: 41 Yes 20meq [Order 1 Start] Name: potassium chloride IVPB 20 mEq Signed Summary: 20 mEq, Intravenou s, at 100 mL/hr, Administer over 1 Hours, As needed, Abnormal Lab Result, Via Central Line. FOR ICU USE ONLY, Starting on 02/17/24 at 0500, Use PO or GT administra tion unless patient is first 12 hours post-op, active GI bleed, arrhythmia s, ischemic bowel or NPO.For patients with central venous access, use 20 mEq IVPB over 1 hour and repeat until total replacemen t dose is reached. For K 3.4 to 3.5 mEq/L: Replace with KCl 20 mEq IVPB Q1H x 2 doses For K 3.1 to 3.3 mEq/L: Replace with KCl 20 mEq IVPB Q1H x 3 doses. For K </= 3.0 mEq/L: Replace with KCl 20 mEq IVPB Q1H x 4 doses. Notify MD if potassium </= 2.9 mEq/L Recheck Potassium level 2 hours after IVPB Potassium replacemen t complete. For central line administra tion only. [Order 1 End] [Order 2 Start] Name: potassium chloride IVPB 10 mEq Signed Summary: 10 mEq, Intravenou s, at 100 mL/hr, Administer over 1 Hours, As needed, Abnormal Lab Result, Via peripheral line, FOR ICU USE ONLY, Starting on 02/17/24 at 0500, Use PO or GT administra tion unless patient is first 12 hours post-op, active GI bleed, arrhythmia s, ischemic bowel or NPO.For patients with peripheral venous access, use 10 mEq IVPB over 1 hour and repeat until total replacemen t dose is reached. For K 3.4 to 3.5 mEq/L: Replace with KCl 10 mEq IVPB Q1H x 4 doses. For K 3.1 to 3.3 mEq/L: Replace with KCl 10 mEq IVPB Q1H x 6 doses. For K </= 3.0 mEq/L: Replace with KCl 10 mEq IVPB Q1H x 8 doses. Notify MD if potassium </= 2.9 mEq/L Recheck Potassium level 2 hours after IVPB Potassium replacemen t complete. [Order 2 End] [Order 3 Start] Name: potassium chloride CR (Klor-Con M20) ER tablet 20 mEq Signed Summary: 20 mEq, Oral, As needed, Abnormal Lab Result, FOR ICU USE ONLY, Starting on 02/17/24 at 0500, Use PO administra tion unless patient is first 12 hours post-op, active GI bleed, arrhythmia s, ischemic bowel or NPO. For K 3.4 to 3.5 mEq/L: Replace with KCl 40 mEq PO x 1 dose. For K 3.1 to 3.3 mEq/L: Replace with KCl 60 mEq PO x 1 dose? For K </= 3.0 mEq/L: Replace with KCl 40 mEq PO Q2H x 2 doses. Notify MD if potassium </= 2.9 mEq/L? Recheck Potassium level 4 hours after PO/GT Potassium replacemen t complete. ? DO NOT CRUSH.? For patients able to take medication s orally or via feeding tube >/= 14 Burmese, may dissolve each 20 mEq tablet in 4 oz of water.? Allow about 2 minutes for the tablets to disintegra te.? Stir before giving to prepare slurry and administer .? Please exclude patient's with feeding tube less than 14 Burmese (Dobhoff, J-tube, etc) and pediatric and patients. Do not crush or chew. [Order 3 End] [Order 4 Start] Name: Potassium chloride solution 20 mEq Signed Summary: 20 mEq, Per G Tube, As needed, Abnormal Lab Result, FOR ICU USE ONLY, Starting on 02/17/24 at 0500, Use GT administra tion unless patient is first 12 hours post-op, active GI bleed, arrhythmia s, ischemic bowel or NPO. For K 3.4 to 3.5 mEq/L: Replace with KCl 40 mEq GT x 1 dose. For K 3.1 to 3.3 mEq/L: Replace with KCl 60 mEq GT x 1 dose For K </= 3.0 mEq/L: Replace with KCl 40 mEq GT Q2H x 2 doses. Notify MD if potassium </= 2.9 mEq/L Recheck Potassium level 4 hours after PO/GT Potassium replacemen t complete. [Order 4 End] Jenae Lang multivitami n (Theragran- M) tablet 1 tablet multivitami n (Theragran- M) tablet 1 tablet 2023-02 20:45: 00 02-20 08:59 :00 No 1{tbl} QD 1 tablet, Oral, Daily, First dose on Mon02/16/24 at 2045, For 5 days Jenae Lang LORazepam (Ativan) injection 2 mg LORazepam (Ativan) injection 2 mg 2023-02 20:40: 16 Yes 2mg Q4H 2 mg, Intravenou s, Every 4 hours PRN, CIWA-Ar score 8 - 14, Starting on Mon02/16/24 at 2040 Jenae Lang dexmedeTOMI Dine in NS (Precedex) 400 mcg in 100 mL (4 mcg/mL) infusion dexmedeTOMI Dine in NS (Precedex) 400 mcg in 100 mL (4 mcg/mL) infusion 2023-02 12:30: 00 02-19 08:44 :57 No .2ug/kg /h 0.2-1.5 mcg/kg/hr ?146 kg (7.3-54.75 mL/hr), Intravenou s, Continuous , Starting on Mon02/16/24 at 1230, Infusion Type: Titrate, Initial Dose (mcg/kg/hr ): 0.2, Titrate by (mcg/kg/hr ): 0.1, Every (minutes): 30, Goal: Refer to Target Arousal RASS Score on Storyboard , Max Dose (mcg/kg/hr ): 1.5 Jenae Lang dexmedeTOMI Dine in NS (Precedex) 400 mcg in 100 mL (4 mcg/mL) infusion - Pyxis Override Pull dexmedeTOMI Dine in NS (Precedex) 400 mcg in 100 mL (4 mcg/mL) infusion - Pyxis Override Pull 2023-02 12:19: 17 02-15 12:55 :00 No Starting on Mon02/16/24 at 1219, For 1 dose, Created by cabinet override Jenae Lang furosemide (Lasix) 100 mg in sodium chloride 0.9 % 100 mL (1 mg/mL) infusion furosemide (Lasix) 100 mg in sodium chloride 0.9 % 100 mL (1 mg/mL) infusion 2023-02 09:00: 00 02-19 08:47 :02 No 5mg/h 5 mg/hr (5 mL/hr), Intravenou s, Continuous , Starting on Mon02/16/24 at 0900 Jenae Appiah Epic thiamine (Vitamin B1) injection 100 mg thiamine (Vitamin B1) injection 100 mg 2023-02 09:00: 00 02-15 20:58 :00 No 100mg QD 100 mg, Intravenou s, Daily, First dose on Mon02/16/24 at 0900 Jenae Appiah Epic amiodarone (Nexterone) 1.8 mg/mL infusion amiodarone (Nexterone) 1.8 mg/mL infusion 2023-02 08:00: 00 02-18 10:16 :00 No .5mg/mi n 0.5 mg/min (16.6667 mL/hr, rounded to 16.67 mL/hr), Intravenou s, Continuous , Starting on Mon02/16/24 at 0800, For 3 days, Started at 1mg/min x 6 hrs, then changed to 0.5mg/min for a total of 10gm load, may change to oral loading after 24 hours Use in-line filter. Give through central venous catheter whenever available. Premix Jenae Appiah Epic LORazepam (Ativan) injection 1 mg LORazepam (Ativan) injection 1 mg 2023-02 01:30: 00 02-15 01:48 :00 No 1mg 1 mg, Intravenou s, Once, On Mon02/16/24 at 0130, For 1 dose Jenae Lang melatonin tablet 3 mg melatonin tablet 3 mg 2023-02 01:19: 37 Yes 3mg QD 3 mg, Oral, Nightly PRN, sleep, Starting on Mon02/16/24 at 0119 Jenae Appiah Epic enoxaparin (Lovenox) syringe 150 mg enoxaparin (Lovenox) syringe 150 mg 2023-02 10:00: 00 02-20 08:38 :48 No 150mg Q12H 150 mg, Subcutaneo us, Every 12 hours, First dose on Mon02/15/24 at 1000 Jenae Appiah Epic furosemide (Lasix) injection 40 mg furosemide (Lasix) injection 40 mg 2023-02 09:00: 00 02-15 08:51 :09 No 40mg Q.5D 40 mg, Intravenou s, 2 times daily, First dose on Mon02/15/24 at 0900 Jenae Appiah Epic dextrose 50 % solution 12.5 g dextrose 50 % solution 12.5 g 2023-02 07:53: 28 Yes 12.5g Jenae Appiah Epic sennosides (Senokot) tablet 17.2 mg sennosides (Senokot) tablet 17.2 mg 2023-02 07:53: 28 Yes 2{tbl} QD Jenae Appiah Epic ondansetron (Zofran) injection 4 mg ondansetron (Zofran) injection 4 mg 2023-02 07:53: 28 Yes 4mg Q6H Jenae Appiah Epic glucagon injection 1 mg glucagon injection 1 mg 2023-02 07:53: 28 [facility] % solution 25 g dextrose 50 % solution 25 g 2023-02 07:53: 28 Yes [facility]g [facility] metoprolol tartrate (Lopressor) tablet 25 mg metoprolol tartrate (Lopressor) tablet 25 mg 2023-02 07:30: 00 02-15 07:40 :59 No 25mg [id number] 3D 25 mg, Oral, Every 8 hours scheduled, First dose on Mon02/15/24 at 0730 Jenae Appiah Epic amiodarone (Nexterone) 1.8 mg/mL infusion amiodarone (Nexterone) 1.8 mg/mL infusion 2023-02 07:30: 00 02-15 07:49 :36 No 1mg/min 1 mg/min (33.3333 mL/hr, rounded to 33.3 mL/hr), Intravenou s, Continuous , Starting on Mon02/15/24 at 0730, For 1 day, Started at 1mg/min x 6 hrs, then changed to 0.5mg/min for a total of 10gm load, may change to oral loading after 24 hours Use in-line filter. Give through central venous catheter whenever available. Premix Jenae Lang amiodarone (Nexterone) IVPB 150 mg amiodarone (Nexterone) IVPB 150 mg 2023-02 07:30: 00 02-15 10:17 :00 No 150mg 150 mg, Intravenou s, at 600 mL/hr, Administer over 10 Minutes, Once, On Mon02/15/24 at 0730, For 1 dose, Use in-line filter. Administer through central venous catheter whenever available. Premix Jenae Lang furosemide (Lasix) injection 40 mg furosemide (Lasix) injection 40 mg 2023-02 21:10: 00 Yes 40mg 40 mg, Intravenou s, Once, On Mon02/14/24 at 2110, For 1 dose Jenae Lang nitroglycer in (Efra-Bid) 2 % ointment 1 inch nitroglycer in (Efra-Bid) 2 % ointment 1 inch 2023-02 21:10: 00 02-13 21:46 :00 No 1[in_us ] 1 inch, Transderma l, Once, On Mon02/14/24 at 2110, For 1 dose Jenae Lang sodium chloride (NS) 0.9 % flush 10 mL sodium chloride (NS) 0.9 % flush 10 mL 2023-02 20:08: 08 Yes 10mL [Order 1 Start] Name: Insert peripheral IV Signed Summary: Once, On Mon02/14/24 at 2008, For 1 occurrence [Order 1 End] [Order 2 Start] Name: Saline lock IV Signed Summary: Once, On Mon02/14/24 at 2008, For 1 occurrence [Order 2 End] [Order 3 Start] Name: sodium chloride (NS) 0.9 % flush 10 mL Signed Summary: 10 mL, Intravenou s, As needed, line care, Starting on Mon02/14/24 at 2007 [Order 3 End] Jenae Lang Naproxen 500 MG oral Tablet 3-12 00:00: 00 02-25 00:00 :00 No [id number] 9100 500mg Q.5D Take 1 tablet (500 mg total) by mouth 2 times daily as needed (pain). Angela lopez Gabapentin 300 MG oral Capsule 3-12 00:00: 00 02-25 00:00 :00 No [id number] 9100 300mg Q.5D Take 1 capsule (300 mg total) by mouth 2 times daily as needed (pain). Angela lopez Bilateral Injection: Methylpredn isolone Acetate (Depo-Medro l) [40 mg/mL], 160mg TOTAL - Physician Administere d ([id number]) 04-13 20:30: 00 04-13 20:47 :00 No [id number] 160mg Angela lopez Gabapentin 300 MG oral Capsule 04-08 00:00: 00 05-01 00:00 :00 No [id number] 9100 300mg Take 1 capsule (300 mg total) by mouth 3 times daily Angela lopez Naproxen 500 MG oral Tablet 04-08 00:00: 00 05-01 00:00 :00 No [id number] 9100 500mg Take 1 tablet (500 mg total) by mouth in the morning and 1 tablet (500 mg total) in the evening. Take with meals. Angela lopez Tizanidine HCl 2 MG oral Tablet 04-04 00:00: 00 05-01 00:00 :00 No 2mg Q.25D Take 2 mg by mouth every 6 hours as needed Angela lopez Tramadol HCl (ULTRAM) 50 MG oral Tablet 04-04 00:00: 00 04-15 05:59 :00 No 50mg Q.[id number] 3D Take 50 mg by mouth every 8 hours as needed Angela lopez methylPREDN ISolone (Medrol Dospak) 4 MG tablets - 00:00: 00 04-05 05:59 :00 No [id number] 4mg Take 1 tablet (4 mg total) by mouth 1 (one) time for 1 dose. Use as directed by package instructio [facility] Gabapentin 100 MG oral Capsule 03-22 00:00: 00 04-08 00:00 :00 No [id number] 100mg Q.5D Take 1 capsule (100 mg total) by mouth 2 times daily as needed Angela Robisonybold - Externa l No known medications 03-03 10:18: 06 No No known medication s Angela Seybold - Externa l Vital Signs Vital Name Observation Time Observation Value Comments S ource Systolic blood pressure 2024-08-27 14:40:00 89 mm[Hg] Angela Seybo ld - External Diastolic blood pressure 2024-08-27 14:40:00 57 mm[Hg] Angela Robisonybo ld - External Heart rate 2024-08-27 14:27:00 99 /min Kelse y Seybold - External Body temperature 2024-08-27 14:27:00 36.72 Keya Angela Robisonybold - External Body height 2024-08-27 14:27:00 180.3 cm Shahnaz ey Seybold - External Body weight 2024-08-27 14:27:00 131.271 kg Shahnaz ey Seybold - External BMI 2024-08-27 14:27:00 40.36 kg/m2 Shahnaz ey Seybold - External Systolic blood pressure 2024-07-04 13:52:00 122 mm[Hg] Angela ybo ld - External Diastolic blood pressure 2024-07-04 13:52:00 70 mm[Hg] Angela ybo ld - External Heart rate 2024-07-04 13:52:00 96 /min Kelse y Seybold - External Body temperature 2024-07-04 13:52:00 37.06 Keya Angela Seybold - External Respiratory rate 2024-07-04 13:52:00 18 /min Angela Seybold - External Oxygen saturation in Arterial blood by Pulse oximetry 2024-07-04 13:52:00 97 /min Angela Herrerao ld - External Systolic blood pressure 2024-06-20 19:18:00 122 mm[Hg] Angela Herrerao ld - External Diastolic blood pressure 2024-06-20 19:18:00 84 mm[Hg] Angela Robisonybo ld - External Heart rate 2024-06-20 19:18:00 75 /min Kelse y Seybold - External Respiratory rate 2024-06-20 19:18:00 18 /min Angela Robisonybold - External Oxygen saturation in Arterial blood by Pulse oximetry 2024-06-20 19:18:00 98 /min Angela Robisonybo ld - External Systolic blood pressure 2024-06-10 14:58:00 123 mm[Hg] Angela Robisonybo ld - External Diastolic blood pressure 2024-06-10 14:58:00 70 mm[Hg] Angela Robisonybo ld - External Heart rate 2024-06-10 14:58:00 80 /min Jamilse y Seybold - External Body temperature 2024-06-10 14:58:00 36.78 Keya Angela Seybold - External Respiratory rate 2024-06-10 14:58:00 18 /min Angela Seybold - External Body height 2024-06-10 14:58:00 180.3 cm Shahnaz ey Seybold - External Oxygen saturation in Arterial blood by Pulse oximetry 2024-06-10 14:58:00 98 /min Angela Herrerao ld - External Systolic blood pressure 2024-06-05 19:42:00 112 mm[Hg] Angela Robisonybo ld - External Diastolic blood pressure 2024-06-05 19:42:00 60 mm[Hg] Angela Herrerao ld - External Heart rate 2024-06-05 19:42:00 70 /min Kelse y Seybold - External Body temperature 2024-06-05 19:42:00 36.83 Keya Angela Seybold - External Respiratory rate 2024-06-05 19:42:00 16 /min Angela Seybold - External Body height 2024-06-05 19:42:00 180.3 cm Shahnaz ey Seybold - External Body weight 2024-06-05 19:42:00 133.811 kg Shahnaz ey Seybold - External BMI 2024-06-05 19:42:00 41.14 kg/m2 Shahnaz ey Seybold - External Oxygen saturation in Arterial blood by Pulse oximetry 2024-06-05 19:42:00 93 /min Angela Herrerao ld - External Systolic blood pressure 2024-05-31 16:35:00 104 mm[Hg] Angela Herrerao ld - External Diastolic blood pressure 2024-05-31 16:35:00 66 mm[Hg] Angela Herrerao ld - External Heart rate 2024-05-31 16:35:00 85 /min Faustina Joyner - External Body temperature 2024-05-31 16:35:00 36.56 Keya Angela Robisonybold - External Respiratory rate 2024-05-31 16:35:00 18 /min Angela Herreraold - External Body height 2024-05-31 16:35:00 180.3 cm Shahnaz Joyner - External Body weight 2024-05-31 16:35:00 150.594 kg Shahnaz lang Seybold - External BMI 2024-05-31 16:35:00 46.30 kg/m2 Shahnaz lang Seybold - External Heart rate 2024-05-27 10:43:56 70 /min [facility] 2024-05-27 10:43:56 16 /min [facility] Oxygen saturation in Arterial blood by Pulse oximetry 2024-05-27 10:43:56 97 /min [facility] Systolic blood pressure 2024-05-27 10:43:42 152 mm[Hg] [facility] Diastolic blood pressure 2024-05-27 10:43:42 82 mm[Hg] [facility] Body temperature 2024-05-27 10:43:08 36.89 Keya [facility] Body weight 2024-05-27 05:23:39 139 kg Manuelito [facility] Epic BMI 2024-05-27 05:23:39 42.74 kg/m2 Manuelito [facility] Epic Body height 2024-05-16 15:02:00 180.3 cm Manuelito [facility] Epic Heart rate 2024-05-27 10:43:56 70 /min [facility] Epic Respiratory rate 2024-05-27 10:43:56 16 /min [facility] Oxygen saturation in Arterial blood by Pulse oximetry 2024-05-27 10:43:56 97 /min [facility] Systolic blood pressure 2024-05-27 10:43:42 152 mm[Hg] [facility] Diastolic blood pressure 2024-05-27 10:43:42 82 mm[Hg] [facility] Body temperature 2024-05-27 10:43:08 36.89 Keya [facility] Body weight 2024-05-27 05:23:39 139 kg Manuelito basurto [facility] BMI 2024-05-27 05:23:39 42.74 kg/m2 Manuelito basurto [facility] Body height 2024-05-16 15:02:00 180.3 cm Manuelito sb [facility] Systolic blood pressure 2024-05-08 21:17:00 106 mm[Hg] Angela Seybo ld - External Diastolic blood pressure 2024-05-08 21:17:00 54 mm[Hg] Angela Seybo ld - External Heart rate 2024-05-08 21:17:00 92 /min Kelse y Seybold - External Body temperature 2024-05-08 21:17:00 37.06 Keya Angela Seybold - External Respiratory rate 2024-05-08 21:17:00 20 /min Angela Seybold - External Body height 2024-05-08 21:17:00 180.3 cm Shahnaz ey Seybold - External Body weight 2024-05-08 21:17:00 150.776 kg Shahnaz ey Seybold - External BMI 2024-05-08 21:17:00 46.36 kg/m2 Shahnaz ey Seybold - External Oxygen saturation in Arterial blood by Pulse oximetry 2024-05-08 21:17:00 90 /min Angela Seybo ld - External Oxygen saturation in Arterial blood by Pulse oximetry 2024-03-07 11:48:00 97 /min [facility] Heart rate 2024-03-07 07:45:00 75 /min [facility] sherrell [facility] Respiratory rate 2024-03-07 07:45:00 18 /min [facility] Systolic blood pressure 2024-03-07 07:22:21 131 mm[Hg] [facility] Diastolic blood pressure 2024-03-07 07:22:21 78 mm[Hg] [facility] Body temperature 2024-03-07 07:21:46 36.56 Keya [facility] Body weight 2024-03-07 07:12:00 133.8 kg Manuelito basurto [facility] BMI 2024-03-07 07:12:00 41.16 kg/m2 Manuelitoanali basurto [facility] Body height 2024-03-04 21:17:00 180.3 cm Manuelitoanali basurto [facility] Oxygen saturation in Arterial blood by Pulse oximetry 2024-03-07 11:48:00 97 /min [facility] Heart rate 2024-03-07 07:45:00 75 /min [facility] 2024-03-07 07:45:00 18 /min [facility] Systolic blood pressure 2024-03-07 07:22:21 131 mm[Hg] [facility] Diastolic blood pressure 2024-03-07 07:22:21 78 mm[Hg] [facility] Body temperature 2024-03-07 07:21:46 36.56 [facility] Body weight 2024-03-07 07:12:00 133.8 kg Manuelitoanali basurto [facility] BMI 2024-03-07 07:12:00 41.16 kg/m2 [facility] Body height 2024-03-04 21:17:00 180.3 cm [facility] Systolic blood pressure 2024-02-29 15:21:00 133 mm[Hg] Angela Seybo ld - External Diastolic blood pressure 2024-02-29 15:21:00 80 mm[Hg] Angela Seybo ld - External Body height 2024-02-29 15:21:00 180.3 cm Shahnaz ey Seybold - External Body weight 2024-02-29 15:21:00 138.801 kg Shahnaz ey Seybold - External BMI 2024-02-29 15:21:00 42.68 kg/m2 Shahnaz ey Seybold - External Systolic blood pressure 2024-02-28 20:23:00 109 mm[Hg] Angela Seybo ld - External Diastolic blood pressure 2024-02-28 20:23:00 56 mm[Hg] Angela Seybo ld - External Heart rate 2024-02-28 20:23:00 71 /min Kelse y Seybold - External Body temperature 2024-02-28 20:23:00 36.72 Keya Angela Seybold - External Respiratory rate 2024-02-28 20:23:00 18 /min Angela Seybold - External Body height 2024-02-28 20:23:00 180.3 cm Shahnaz ey Seybold - External Body weight 2024-02-28 20:23:00 139.254 kg Shahnaz ey Seybold - External BMI 2024-02-28 20:23:00 42.82 kg/m2 Shahnaz ey Seybold - External Oxygen saturation in Arterial blood by Pulse oximetry 2024-02-28 20:23:00 92 /min Angela Seybo ld - External Systolic blood pressure 2024-02-26 22:21:00 122 mm[Hg] Angela Seybo ld - External Diastolic blood pressure 2024-02-26 22:21:00 70 mm[Hg] Angela Seybo ld - External Heart rate 2024-02-26 22:21:00 70 /min Kelse y Seybold - External Body temperature 2024-02-26 22:21:00 36.72 Keya Angela Seybold - External Respiratory rate 2024-02-26 22:21:00 18 /min Angela Seybold - External Body height 2024-02-26 22:21:00 180.3 cm Shahnaz ey Seybold - External Body weight 2024-02-26 22:21:00 139.254 kg Shahnaz ey Seybold - External BMI 2024-02-26 22:21:00 42.82 kg/m2 Shahnaz ey Seybold - External Oxygen saturation in Arterial blood by Pulse oximetry 2024-02-26 22:21:00 95 /min Angela Seybo ld - External Heart rate 2024-02-22 16:15:38 80 /min [facility] Epic Respiratory rate 2024-02-22 16:15:38 19 /min [facility] Oxygen saturation in Arterial blood by Pulse oximetry 2024-02-22 16:15:38 93 /min [facility] Systolic blood pressure 2024-02-22 16:15:28 115 mm[Hg] [facility] Diastolic blood pressure 2024-02-22 16:15:28 64 mm[Hg] [facility] Body temperature 2024-02-22 16:14:26 36.67 [facility] Body weight 2024-02-22 06:59:00 132.8 kg Manuelito basurto [facility] BMI 2024-02-22 06:59:00 40.83 kg/m2 Manuelitoanali basurto [facility] Body height 2024-02-15 09:00:00 180.3 cm Manuelitoanali basurto [facility] Heart rate 2024-02-22 16:15:38 80 /min [facility] 2024-02-22 16:15:38 19 /min [facility] Oxygen saturation in Arterial blood by Pulse oximetry 2024-02-22 16:15:38 93 /min [facility] Systolic blood pressure 2024-02-22 16:15:28 115 mm[Hg] [facility] Diastolic blood pressure 2024-02-22 16:15:28 64 mm[Hg] [facility] Body temperature 2024-02-22 16:14:26 36.67 [facility] Body weight 2024-02-22 06:59:00 132.8 kg Manuelitoanali basurto [facility] BMI 2024-02-22 06:59:00 40.83 kg/m2 [facility] Body height 2024-02-15 09:00:00 180.3 cm Manuelito basurto [facility] Respiratory rate 2023-05-02 18:13:00 15 /min Angela Seybold - External Body height 2023-05-02 18:13:00 180.3 cm Shahnaz ey Seybold - External Body weight 2023-05-02 18:13:00 140.615 kg Shahnaz ey Seybold - External BMI 2023-05-02 18:13:00 43.24 kg/m2 Shahnaz ey Seybold - External Systolic blood pressure 2023-05-02 18:13:00 128 mm[Hg] Angela Seybo ld - External Diastolic blood pressure 2023-05-02 18:13:00 76 mm[Hg] Angeal Seybo ld - External Heart rate 2023-05-02 18:13:00 76 /min Kelse y Seybold - External Body temperature 2023-05-02 18:13:00 36.83 Keya Angela Seybold - External Body height 2022-04-13 19:23:00 180.3 cm Shahnaz ey Seybold - External Body weight 2022-04-13 19:23:00 139.254 kg Shahnaz ey Seybold - External BMI 2022-04-13 19:23:00 42.82 kg/m2 Shahnaz ey Seybold - External Body temperature 2022-04-08 16:24:00 36.56 Keya Angeal Seybold - External Respiratory rate 2022-04-08 16:24:00 17 /min Angela Seybold - External Body height 2022-04-08 16:24:00 180.3 cm Shahnaz ey Seybold - External Body weight 2022-04-08 16:24:00 139.073 kg Shahnaz ey Seybold - External BMI 2022-04-08 16:24:00 42.76 kg/m2 Shahnaz ey Seybold - External Systolic blood pressure 2022-03-03 16:12:00 162 mm[Hg] Angela Seybo ld - External Diastolic blood pressure 2022-03-03 16:12:00 72 mm[Hg] Angela Seybo ld - External Heart rate 2022-03-03 16:12:00 87 /min Kelse y Seybold - External Body temperature 2022-03-03 16:12:00 36.67 Keya Angela Seybold - External Respiratory rate 2022-03-03 16:12:00 16 /min Angela Seybold - External Body height 2022-03-03 16:12:00 180.3 cm Shahnaz ey Seybold - External Body weight 2022-03-03 16:12:00 143.79 kg Shahnaz ey Seybold - External BMI 2022-03-03 16:12:00 44.21 kg/m2 Shahnaz ey Seybold - External Procedures Procedure Date / Time Performed Performing Clinician Source Protime-INR 2024-06-23 00:00:00 [facility] PT-INR 2024-05-28 00:00:00 [facility] POC GLUCOSE UNSOLICITED RESULTS 2024-05-27 05:55:00 Maryse Mcpherson [facility] COMPREHENSIVE METABOLIC PANEL 2024-05-27 04:32:00 Sokunbi, Maryse Gerard [facility] COMPLETE BLOOD COUNT W/DIFF AND PLATELET 2024-05-27 04:32:00 Sokunbi, Maryse Gerard [facility] PROTIME-INR 2024-05-27 04:32:00 Shobashimon, Jerelayomi [facility] COMPLETE BLOOD COUNT 2024-05-27 04:32:00 Sokunbi , Maryse Gerard [facility] AUTOMATED DIFFERENTIAL 2024-05-27 04:32:00 Sokun bi, Maryse Gerard [facility] POC GLUCOSE UNSOLICITED RESULTS 2024-05-26 17:08:00 Sokunbi, Maryse Gerard [facility] Epic AMMONIA LEVEL 2024-05-26 15:34:00 Sokunbi, Claribel mbola Gerard [facility] POC GLUCOSE UNSOLICITED RESULTS 2024-05-26 11:16:00 Sokunbi, Maryse Gerard [facility] POC GLUCOSE UNSOLICITED RESULTS 2024-05-26 06:33:00 Sokunbi, Maryse Gerard [facility] EXTRA LAVENDER TOP 2024-05-26 05:46:00 Sokunbi, Maryse Gerard [facility] Epic EXTRA TUBES 2024-05-26 05:46:00 Sokunbi, Clarbiel mbola Gerard [facility] RENAL FUNCTION PANEL 2024-05-26 05:45:00 Ron Gomez [facility] PROTIME-INR 2024-05-26 05:45:00 Urbano Redd [facility] POC GLUCOSE UNSOLICITED RESULTS 2024-05-25 16:29:00 Sokunbi, Maryse Gerard [facility] POC GLUCOSE UNSOLICITED RESULTS 2024-05-25 11:19:00 Sokunbi, Maryse Gerard [facility] POC GLUCOSE UNSOLICITED RESULTS 2024-05-25 06:01:00 Sokunbi, Maryse Gerard [facility] RENAL FUNCTION PANEL 2024-05-25 04:25:00 Ron Gomez [facility] COMPLETE BLOOD COUNT W/DIFF AND PLATELET 2024-05-25 04:25:00 Al Maloney [facility] PROTIME-INR 2024-05-25 04:25:00 Alyciaever Urbano [facility] COMPLETE BLOOD COUNT 2024-05-25 04:25:00 Jesus Maloney [facility] AUTOMATED DIFFERENTIAL 2024-05-25 04:25:00 Tena Maloney [facility] COMPLETE BLOOD COUNT W/DIFF AND PLATELET 2024-05-24 19:52:00 Alyciabashimon Wilmaomi [facility] PT AND PTT 2024-05-24 19:52:00 Jerel Redderickamichael [facility] COMPLETE BLOOD COUNT 2024-05-24 19:52:00 Johnathan Redd [facility] AUTOMATED DIFFERENTIAL 2024-05-24 19:52:00 Perri Redd sayommichael [facility] PROTEIN AND CREATININE RANDOM URINE WITH RATIO 2024-05-24 15:52:00 Ron Gomez [facility] UA WITH CULTURE IF INDICATED 2024-05-24 15:52:00 Ron Gomez [facility] POC GLUCOSE UNSOLICITED RESULTS 2024-05-24 13:14:00 Sher MurrayChano [facility] POC GLUCOSE UNSOLICITED RESULTS 2024-05-24 08:49:00 Sher MurrayBeyerville [facility] COMPREHENSIVE METABOLIC PANEL 2024-05-24 03:56:00 KartikBernice [facility] MAGNESIUM LEVEL 2024-05-24 03:56:00 KartikBernice [facility] PHOSPHORUS LEVEL 2024-05-24 03:56:00 KartikBernice [facility] COMPLETE BLOOD COUNT W/DIFF AND PLATELET 2024-05-24 03:56:00 Kartik, Gracieung [facility] COMPLETE BLOOD COUNT 2024-05-24 03:56:00 KartikRy g [facility] AUTOMATED DIFFERENTIAL 2024-05-24 03:56:00 KartikGracie mayte [facility] POC GLUCOSE UNSOLICITED RESULTS 2024-05-23 16:41:00 Sher Murray [facility] POC GLUCOSE UNSOLICITED RESULTS 2024-05-23 11:09:00 Sher Murray [facility] POC GLUCOSE UNSOLICITED RESULTS 2024-05-23 08:55:00 Sher MurrayBeyerville [facility] COMPREHENSIVE METABOLIC PANEL 2024-05-23 06:13:00 Atandeymichael [facility]to [facility] MAGNESIUM LEVEL 2024-05-23 06:13:00 Atandeymichael Kaz lawkatherin [facility] PHOSPHORUS LEVEL 2024-05-23 06:13:00 Atandeymichael, K olawole Omodayo [facility] COMPLETE BLOOD COUNT W/DIFF AND PLATELET 2024-05-23 06:13:00 Atandeymichael [facility]to [facility] COMPLE[facility]LO[facility] 2024-05-23 06:13:00 Atawayneey michael [facility]mberto [facility] Epic AUTOMATED DIFFERENTIAL 2024-05-23 06:13:00 Atand eyi, [facility]mberto [facility] Epic POC GLUCOSE UNSOLICITED RESULTS 2024-05-22 16:46:00 MurraySherBeyerville [facility] COMPREHENSIVE METABOLIC PANEL 2024-05-22 04:57:00 Atandeymichael [facility]mberto [facility] Epic MAGNESIUM LEVEL 2024-05-22 04:57:00 Atandeymichael Kaz lawkatherin [facility] PHOSPHORUS LEVEL 2024-05-22 04:57:00 Atandeymichael K olawole odayo [facility] COMPLETE BLOOD COUNT W/DIFF AND PLATELET 2024-05-22 04:57:00 Atandeyi Umberto Omodayo [facility] COMPLETE BLOOD COUNT 2024-05-22 04:57:00 Atandey i, Umberto Omodayo [facility] Epic AUTOMATED DIFFERENTIAL 2024-05-22 04:57:00 Atand eyi Umberto Omodayo [facility] POC GLUCOSE UNSOLICITED RESULTS 2024-05-21 20:01:00 Sher MurrayMarkusChano [facility] POC GLUCOSE UNSOLICITED RESULTS 2024-05-21 16:36:00 Sher Murray [facility] POC GLUCOSE UNSOLICITED RESULTS 2024-05-21 11:33:00 Sher MurrayChano [facility] POC GLUCOSE UNSOLICITED RESULTS 2024-05-21 07:29:00 Sher MurrayChano [facility] COMPREHENSIVE METABOLIC PANEL 2024-05-21 05:10:00 Leke-Tambo, Kandy Swanson [facility] MAGNESIUM LEVEL 2024-05-21 05:10:00 Leke-Tambo, Kandy Swanson [facility] PHOSPHORUS LEVEL 2024-05-21 05:10:00 Leke-Tambo, [facility]irio [facility] COMPLETE [facility]LOOD COUNT W/DIFF AND PLATELET 2024-05-21 05:10:00 Leke-Tambo, Kandy Swanson [facility] PROTIME-INR 2024-05-21 05:10:00 Artie Mckeon [facility] CALCIUM LEVEL IONIZED WHOLE BLOOD 2024-05-21 05:10:00 Leke-Tambo, Kandy Swanson [facility] COMPLETE BLOOD COUNT 2024-05-21 05:10:00 Leke-Ta mbo, Kandy Swanson [facility] AUTOMATED DIFFERENTIAL 2024-05-21 05:10:00 Leke- Tambo, Kandy Swanson [facility] POC GLUCOSE UNSOLICITED RESULTS 2024-05-21 04:01:00 Sher Murray [facility] POC GLUCOSE UNSOLICITED RESULTS 2024-05-21 00:38:00 Sher MurrayBeyerville [facility] POC GLUCOSE UNSOLICITED RESULTS 2024-05-20 20:21:00 Sher [facility] HospitalBey[facility] TRANSTHORACIC ECHO (TTE) COMPLETE 2024-05-20 17:58:50 Jerrica Bonner [facility] POC GLUCOSE UNSOLICITED RESULTS 2024-05-20 16:24:00 Sher Murray [facility] POC ARTERIAL BLOOD GAS PANEL UNSOLICITED RESULTS 2024-05-20 13:46:00 Sher Murray [facility] POC GLUCOSE UNSOLICITED RESULTS 2024-05-20 11:33:00 [facility] P[facility] GLUCOSE UNSOLICITED RESULTS 2024-05-20 07:57:00 Sher MurrayChano [facility] BASIC METABOLIC PANEL 2024-05-20 03:38:00 [facility] AMMONIA LEVEL 2024-05-20 03:38:00 Kaz Oakes [facility] MAGNESIUM LEVEL 2024-05-20 03:38:00 Kaz Oakes [facility] PHOSPHORUS LEVEL 2024-05-20 03:38:00 Lindsay Oakes [facility] COMPLETE BLOOD COUNT W/DIFF AND PLATELET 2024-05-20 03:38:00 [facility] CALCIUM LEVEL IONIZED WHOLE BLOOD 2024-05-20 03:38:00 Umberto Oakes [facility] COMPLETE BLOOD COUNT 2024-05-20 03:38:00 Sher [facility] AUTOMATED DIFFERENTIAL 2024-05-20 03:38:00 [facility] BASIC METABOLIC PANEL 2024-05-19 19:51:00 Ra thais Muñoz [facility] MAGNESIUM LEVEL 2024-05-19 19:51:00 Brenden Muñoz [facility] CALCIUM LEVEL IONIZED WHOLE BLOOD 2024-05-19 19:51:00 Brenden Muñoz [facility] POC GLUCOSE UNSOLICITED RESULTS 2024-05-19 16:04:00 [facility] POC GLUCOSE UNSOLICITED RESULTS 2024-05-19 12:09:00 [facility] POC GLUCOSE UNSOLICITED RESULTS 2024-05-19 08:33:00 [facility] BASIC METABOLIC PANEL 2024-05-19 04:10:00 [facility] MAGNESIUM LEVEL 2024-05-19 04:10:00 Kaz Oakse [facility] PHOSPHORUS LEVEL 2024-05-19 04:10:00 Lindsay Oakesawole [facility] COMPLETE BLOOD COUNT W/DIFF AND PLATELET 2024-05-19 04:10:00 Sher Murray [facility] PROTIME-INR 2024-05-19 04:10:00 MichelajacintooraliaBrenden lambert gajohn [facility] CALCIUM LEVEL IONIZED WHOLE BLOOD 2024-05-19 04:10:00 Neena Oakesole [facility] COMPLETE BLOOD COUNT 2024-05-19 04:10:00 Sher Murray [facility] HospitalBeyerville [facility] AUTOMATED DIFFERENTIAL 2024-05-19 04:10:00 Sher MurrayGuadalupe County HospitalChano [facility] POC GLUCOSE UNSOLICITED RESULTS 2024-05-19 04:08:00 Sher MurrayChano [facility] POC GLUCOSE UNSOLICITED RESULTS 2024-05-18 23:16:00 Sher Murray [facility] POC GLUCOSE UNSOLICITED RESULTS 2024-05-18 20:14:00 Sher MurrayChano [facility] POC GLUCOSE UNSOLICITED RESULTS 2024-05-18 17:07:00 Sher [facility]Gu[facility] HospitalBeyerville [facility] POC GLUCOSE UNSOLICITED RESULTS 2024-05-18 12:29:00 Sher MurrayBeyerville [facility] POC GLUCOSE UNSOLICITED RESULTS 2024-05-18 07:41:00 Sher Murray [facility] POC ARTERIAL BLOOD GAS AND BASIC PANEL UNSOLICITED RESULTS 2024-05-18 04:03:00 Sher Murray [facility] POC GLUCOSE UNSOLICITED RESULTS 2024-05-18 03:44:00 Sher Murray [facility] XR CHEST 1 VIEW 2024-05-18 02:47:00 Sher Murray [facility] POC GLUCOSE UNSOLICITED RESULTS 2024-05-18 02:39:00 Sher Murray [facility] POC GLUCOSE UNSOLICITED RESULTS 2024-05-18 02:14:00 Sher Murray [facility] BASIC METABOLIC PANEL 2024-05-18 00:44:00 Sher MurrayGu[facility] HospitalBeyerville [facility] MAGNESIUM LEVEL 2024-05-18 00:44:00 Trevor Sher hatfield [facility] PHOSPHORUS LEVEL 2024-05-18 00:44:00 Trevor Sher Madden [facility] COMPLETE BLOOD COUNT W/DIFF AND PLATELET 2024-05-18 00:44:00 Trevor Sher Gusman [facility] COMPLETE BLOOD COUNT 2024-05-18 00:44:00 Trevor Sher Quezada [facility] AUTOMATED DIFFERENTIAL 2024-05-18 00:44:00 Trevor Sher JaegerChano [facility] POC GLUCOSE UNSOLICITED RESULTS 2024-05-18 00:05:00 Trevor Sher Gusman [facility] POC GLUCOSE UNSOLICITED RESULTS 2024-05-17 18:53:00 Trevor Sher JaegerChano [facility] POC GLUCOSE UNSOLICITED RESULTS 2024-05-17 16:41:00 [facility]UCOSE UNSOLICITED RESULTS 2024-05-17 12:21:00 Trevor Sher Gusman [facility] POC ARTERIAL BLOOD GAS AND BASIC PANEL UNSOLICITED RESULTS 2024-05-17 11:18:00 Trevor Sher Gusman [facility] POC GLUCOSE UNSOLICITED RESULTS 2024-05-17 08:46:00 Trevor Sher JaegerChano [facility] PT AND PTT 2024-05-17 04:44:00 Trevor Sher JaegerBeyerville [facility] POC ARTERIAL BLOOD GAS AND BASIC PANEL UNSOLICITED RESULTS 2024-05-17 04:41:00 Trevor Sher Gusman [facility] POC GLUCOSE UNSOLICITED RESULTS 2024-05-17 02:16:00 Trevor Sher JaegerBeyerville [facility] BLOOD GAS, VENOUS 2024-05-17 01:34:00 Josias Roth [facility] CT ANGIOGRAM CHEST PULMONARY EMBOLISM 2024-05-17 00:10:39 Josias Roth [facility] BLOOD GAS, VENOUS 2024-05-16 23:37:00 Josias Roth [facility] UA WITH CULTURE IF INDICATED 2024-05-16 21:46:00 Josias Roth [facility] BLOOD GAS, VENOUS 2024-05-16 21:27:00 Josias Roth [facility] D-DIMER, QUANTITATIVE 2024-05-16 21:27:00 Vitaliy Roth [facility] BLOOD CULTURE 2024-05-16 21:27:00 [facility]IN WO IV CONTRAST 2024-05-16 21:17:45 Panda Roth [facility] US LOWER EXTREMITY VENOUS DOPPLER BILATERAL 2024-05-16 20:57:34 Josias Roth [facility] US ABDOMEN LIMITED 2024-05-16 20:34:00 Josias Roth [facility] BASIC METABOLIC PANEL 2024-05-16 18:33:00 AguharGildardo [facility] HEPATIC FUNCTION PANEL 2024-05-16 18:33:00 Aguhbrie, Iso lde [facility] B-TYPE NATRIURETIC PEPTIDE 2024-05-16 18:33:00 Carly Almonte [facility] COMPLETE BLOOD COUNT W/DIFF AND PLATELET 2024-05-16 18:33:00 AguhCarly baird [facility] TROPONIN I HIGH SENSITIVITY (SINGLE ORDER) 2024-05-16 18:33:00 Carly Almonte [facility] COMPLETE BLOOD COUNT 2024-05-16 18:33:00 Mary Almonte [facility] AUTOMATED DIFFERENTIAL 2024-05-16 18:33:00 Agkarlene, Iso lde [facility] XR CHEST 1 VIEW 2024-05-16 17:14:38 Carly Almonte [facility] ECG 12-LEAD 2024-05-16 15:00:00 Carly Almonte [facility] SD CRITICAL CARE ILL/INJURED PATIENT INIT 30-74 MIN 2024-05-16 14:48:00 Josias Roth [facility] POCT Glucose 2024-03-16 00:00:00 [facility] BASIC METABOLIC PANEL 2024-03-07 04:14:00 Jeremy Maloney [facility] COMPLETE BLOOD COUNT W/DIFF AND PLATELET 2024-03-07 04:14:00 Al Maloney [facility] COMPLETE BLOOD COUNT 2024-03-07 04:14:00 Jesus Maloney [facility] AUTOMATED DIFFERENTIAL 2024-03-07 04:14:00 Tena Maloney [facility] COMPREHENSIVE METABOLIC PANEL 2024-03-06 04:11:00 Al Maloney [facility] COMPLETE BLOOD COUNT W/DIFF AND PLATELET 2024-03-06 04:11:00 Al Maloney [facility] COMPLETE BLOOD COUNT 2024-03-06 04:11:00 Jesus Maloney [facility] AUTOMATED DIFFERENTIAL 2024-03-06 04:11:00 Tena Maloney [facility] Home Oxygen Evaluation 2024-03-06 00:00:00 [facility] COMPREHENSIVE METABOLIC PANEL 2024-03-05 04:56:00 Al Maloney [facility] MAGNESIUM LEVEL 2024-03-05 04:56:00 Al Maloney [facility] 2024-03-05 04:56:00 Al [facility]oney [facility] COMPLETE BLOOD COUNT W/DIFF AND PLATELET 2024-03-05 04:56:00 Al Maloney [facility] COMPLETE BLOOD COUNT 2024-03-05 04:56:00 Jesus Maloney [facility] AUTOMATED DIFFERENTIAL 2024-03-05 04:56:00 Tena Maloney [facility] XR CHEST 1 VIEW 2024-03-04 17:14:30 Farooq Calero [facility] BLOOD GAS, VENOUS 2024-03-04 15:13:00 Fred Maza [facility] BASIC METABOLIC PANEL 2024-03-04 15:11:00 Arline Calero [facility] B-TYPE NATRIURETIC PEPTIDE 2024-03-04 15:11:00 Rolf Maza [facility] COMPLETE BLOOD COUNT W/DIFF AND PLATELET 2024-03-04 15:11:00 Farooq Calero [facility] TROPONIN I HIGH SENSITIVITY (SINGLE ORDER) 2024-03-04 15:11:00 Farooq Calero [facility] CORONAVIRUS (COVID-19) DANIEL ICU/ISOLATION 2024-03-04 15:11:00 Farooq Calero [facility] COMPLETE BLOOD COUNT 2024-03-04 15:11:00 Beatriz Calero Lois [facility] AUTOMATED DIFFERENTIAL 2024-03-04 15:11:00 Radu Calero Lois [facility] ECG 12-LEAD 2024-03-04 13:53:02 Farooq Calero [facility] Critical Care 2024-03-04 13:32:00 Antonio Maza marcelosarika Pittman [facility] Complete Blood Count w/Diff and Platelet 2024-02-23 00:00:00 [facility] Basic Metabolic Panel 2024-02-23 00:00:00 [facility] POC GLUCOSE UNSOLICITED RESULTS 2024-02-22 16:14:00 OkparaBobbyeisha [facility] POC GLUCOSE UNSOLICITED RESULTS 2024-02-22 12:49:00 OkparaBobbyeisha [facility] POC GLUCOSE UNSOLICITED RESULTS 2024-02-22 06:37:00 Ikugbagbe, Olaoluwapo [facility] COMPLETE BLOOD COUNT 2024-02-22 04:53:00 Ikugbagbe, Ol aoluwapo [facility] AUTOMATED DIFFERENTIAL 2024-02-22 04:53:00 Ikugbagbe, Olaoluwapo [facility] BASIC METABOLIC PANEL 2024-02-22 04:53:00 Ikugbagbe, O laoluwapo [facility] COMPLETE BLOOD COUNT W/DIFF AND PLATELET 2024-02-22 04:53:00 Ikugbagbe, Olaoluwapo [facility] POC GLUCOSE UNSOLICITED RESULTS 2024-02-21 06:13:00 Ikugbagbe, Olaoluwapo [facility] COMPLETE BLOOD COUNT 2024-02-21 03:58:00 Ikugbagbe, Ol aoluwapo [facility] AUTOMATED DIFFERENTIAL 2024-02-21 03:58:00 Ikugbagbe, Olaoluwapo [facility] BASIC METABOLIC PANEL 2024-02-21 03:58:00 Ikugbagbe, O laoluwapo [facility] Epic AMMONIA LEVEL 2024-02-21 03:58:00 Patri, Riya [facility] ial [facility] COMPLETE BLOOD COUNT W/DIFF AND PLATELET 2024-02-21 03:58:00 Adrian Slaughterkaushal [facility] POC GLUCOSE UNSOLICITED RESULTS 2024-02-20 18:33:00 Yissel Slaughter [facility] POC GLUCOSE UNSOLICITED RESULTS 2024-02-20 12:21:00 Patmarcelo [facility] POC GLUCOSE UNSOLICITED RESULTS 2024-02-20 05:55:00 Jesus [facility] BLOOD GAS, VENOUS 2024-02-20 05:11:[address] [facility] COMPREHENSIVE METABOLIC PANEL 2024-02-20 05:10:00 Kartik Brennensher [facility] LACTIC ACID LEVEL 2024-02-20 05:10:[address] [facility] MAGNESIUM LEVEL 2024-02-20 05:10:00 [facility] PHOSPHORUS LEVEL 2024-02-20 05:10:00 Bernice Verdugo [facility] COMPLETE BLOOD COUNT (NO DIFF) 2024-02-20 05:10:00 Kartik Brennensher [facility] XR CHEST 1 VIEW 2024-02-20 03:52:41 Kartik, Brennensher [facility] orial Td [facility] POC GLUCOSE UNSOLICITED RESULTS 2024-02-19 21:01:00 Jesus Riya [facility] BASIC METABOLIC PANEL 2024-02-19 14:44:00 KartikSandro [facility] MAGNESIUM LEVEL 2024-02-19 14:44:00 Kartik Graciemayte [facility] orial [facility] PHOSPHORUS LEVEL 2024-02-19 14:44:00 Kartik, Brennensher Dc morial Td [facility] POC GLUCOSE UNSOLICITED RESULTS 2024-02-19 12:08:00 Jesus [facility] POC ARTERIAL BLOOD GAS PANEL UNSOLICITED RESULTS 2024-02-19 12:08:00 [facility] XR CHEST 1 VIEW 2024-02-19 09:21:25 PatFanny robertsonp [facility] orial [employer] Epic POC GLUCOSE UNSOLICITED RESULTS 2024-02-19 05:52:00 PatriFannyp [facility] Epic COMPLETE BLOOD COUNT 2024-02-19 03:27:00 Gracie Verdugojan aldridge [facility] Epic AUTOMATED DIFFERENTIAL 2024-02-19 03:27:00 Gracie Verdugo [facility] BASIC METABOLIC PANEL 2024-02-19 03:27:00 Gabriela Lee ep [facility] MAGNESIUM LEVEL 2024-02-19 03:27:00 MaryriFannyp [facility] orial Td Epic PHOSPHORUS LEVEL 2024-02-19 03:27:00 Bernice Verdugo [facility] COMPLETE BLOOD COUNT W/DIFF AND PLATELET 2024-02-19 03:27:00 Bernice Verdugo [facility] Basic Metabolic Panel 2024-02-19 00:00:00 [facility] Magnesium Level 2024-02-19 00:00:00 Anabelle watsonCentinela [facility] POC GLUCOSE UNSOLICITED RESULTS 2024-02-18 23:51:00 PatriFannyp [facility] Epic POC GLUCOSE UNSOLICITED RESULTS 2024-02-18 19:55:00 PatriFannyp [facility] BASIC METABOLIC PANEL 2024-02-18 14:32:00 Gabriela Lee [facility] Epic MAGNESIUM LEVEL 2024-02-18 14:32:00 MaryriFannyp [facility] orial Td Epic PHOSPHORUS LEVEL 2024-02-18 14:32:00 Riya Lee Dc [facility] Epic BLOOD GAS, ARTERIAL 2024-02-18 12:19:00 PatriAbiRiya [facility] Epic POC GLUCOSE UNSOLICITED RESULTS 2024-02-18 08:09:00 PatriAbiRiya [facility] Epic POC GLUCOSE UNSOLICITED RESULTS 2024-02-18 05:35:00 JesusFannyp [facility] Epic XR CHEST 1 VIEW 2024-02-18 03:19:00 PatriAbiRiya [facility] orial Td Epic COMPLETE BLOOD COUNT 2024-02-18 00:55:00 Genie Dias [facility] Epic AUTOMATED DIFFERENTIAL 2024-02-18 00:55:00 Genie Fuentes [facility] BASIC METABOLIC PANEL 2024-02-18 00:55:00 Genie Grey [facility] MAGNESIUM LEVEL 2024-02-18 00:55:00 Mele Rosario [facility] PHOSPHORUS LEVEL 2024-02-18 00:55:00 Lindsay Rosario [facility] COMPLETE BLOOD COUNT W/DIFF AND PLATELET 2024-02-18 00:55:00 Genie Rosario [facility] CALCIUM LEVEL IONIZED WHOLE BLOOD 2024-02-18 00:55:00 Genie Rosario [facility] POC GLUCOSE UNSOLICITED RESULTS 2024-02-17 23:19:00 Riya Lee [facility] POC GLUCOSE UNSOLICITED RESULTS 2024-02-17 17:40:00 Riya Lee [facility] US ABDOMEN LIMITED LIVER 2024-02-17 13:03:12 Sa erika Lee [facility] XR CHEST 1 VIEW 2024-02-17 09:35:29 Riya Lee [facility] POC GLUCOSE UNSOLICITED RESULTS 2024-02-17 06:33:00 Riya Lee [facility] BLOOD GAS, ARTERIAL 2024-02-17 03:48:00 Riya Lee [facility] COMPLETE BLOOD COUNT 2024-02-17 03:26:00 Genie Dias [facility] AUTOMATED DIFFERENTIAL 2024-02-17 03:26:00 Genie Fuentes [facility] COMPREHENSIVE METABOLIC PANEL 2024-02-17 03:26:00 Genie Rosario [facility] MAGNESIUM LEVEL 2024-02-17 03:26:00 Mele Rosario [facility] PHOSPHORUS LEVEL 2024-02-17 03:26:00 Lindsay Rosario [facility] COMPLETE BLOOD COUNT W/DIFF AND PLATELET 2024-02-17 03:26:00 Genie Rosario [facility] CALCIUM LEVEL IONIZED WHOLE BLOOD 2024-02-17 03:26:00 Genie Rosario [facility] POC GLUCOSE UNSOLICITED RESULTS 2024-02-16 16:28:00 Riya Lee [facility] XR CHEST 1 VIEW 2024-02-16 08:26:20 Booker Hicks [facility] EXTRA BLUE TOP 2024-02-16 07:47:00 Booker Hicks Memlazaro ial [facility] EXTRA GREEN TOP 2024-02-16 07:47:00 Booker Hicks светланаl [facility] EXTRA TUBES 2024-02-16 07:47:00 Booker Hicks l [facility] COMPLETE BLOOD COUNT 2024-02-16 07:45:00 Samm Rivera Kimberly leticia [facility] AUTOMATED DIFFERENTIAL 2024-02-16 07:45:00 Samm Rivera Smith [facility] COMPREHENSIVE METABOLIC PANEL 2024-02-16 07:45:00 Samm Rivera Smith [facility] AMMONIA LEVEL 2024-02-16 07:45:00 Booker Hicks al [facility] MAGNESIUM LEVEL 2024-02-16 07:45:00 Mbadinudarren, U chechukwu [facility] PHOSPHORUS LEVEL 2024-02-16 07:45:00 Mbadinuju, Uchechukwu [facility] COMPLETE BLOOD COUNT W/DIFF AND PLATELET 2024-02-16 07:45:00 Miguel Samm Smith [facility] BLOOD GAS, ARTERIAL 2024-02-16 07:32:00 Booker Hicks [facility] POC GLUCOSE UNSOLICITED RESULTS 2024-02-16 07:15:00 Booker Hicks [facility] DRUG SCREEN URINE (8 DRUGS) 2024-02-16 01:52:00 Mbadinuju, Uchechukwu Nnebuogo [facility] POC GLUCOSE UNSOLICITED RESULTS 2024-02-15 15:46:00 Booker Hicks [facility] TRANSTHORACIC ECHO (TTE) COMPLETE 2024-02-15 11:15:00 Miguel Samm Smith [facility] XR HAND 3+ VIEWS LEFT 2024-02-15 06:14:55 Samm Rivera [facility] ECG 12-LEAD 2024-02-14 22:54:10 Restrepo, Gabbie [facility] TROPONIN I HIGH SENSITIVITY CARESET (1ST HR) 2024-02-14 21:46:00 Lauro Gabbie [facility] XR CHEST 1 VIEW 2024-02-14 20:39:00 Lauro Gabbie [facility] TROPONIN I HIGH SENSITIVITY CARESET (BASELINE) 2024-02-14 20:35:00 Aarti Restrepoela [facility] COMPLETE BLOOD COUNT 2024-02-14 20:35:00 Antonio Restrepo ridebra [facility] AUTOMATED DIFFERENTIAL 2024-02-14 20:35:00 Fred Restrepo abrniecy [facility] BASIC METABOLIC PANEL 2024-02-14 20:35:00 Restrepo, Kieran cadet [facility] CREATINE KINASE (CK TOTAL) 2024-02-14 20:35:00 Lauro Gabbie [facility] B-TYPE NATRIURETIC PEPTIDE 2024-02-14 20:35:00 Hi Hill [facility] COMPLETE BLOOD COUNT W/DIFF AND PLATELET 2024-02-14 20:35:00 Lauro Gabbie [facility] TROPONIN I HIGH SENSITIVITY CARESET 2024-02-14 20:35:00 Lauro Gabbie [facility] POCT Glucose [facility] Oxygen Therapy - Patient Type: Adult; Device: Nasal Cannula; Rate in liters per minute: 2 Lpm; Follow Respiratory Pathway: Yes [facility] Non-Invasive Ventilator - [facility] Non-Invasive Ventilator - Me [facility] Oxygen Therapy - Patient Type: Adult; Device: Nasal Cannula; Rate in Liters per minute: 3; Follow Respiratory Pathway: Yes [facility] Plan of Care Planned Activity Planned Date Details Comments Source Encounters Start Date/Time End Date/Time Encounter Type Admission Type Attending Clinicians Care Facility Care Department Encounter ID Source 2022-04-19 13:30:[address] [facility] [id number] [facility] 2022-04-04 13:53:[address] [facility] [id number] [facility] 2022-03-31 13:37:[address] [facility] [id number] [facility] 2022-03-30 10:25:[address] [facility] [id number] [facility] 2022-03-29 18:02:[address] [facility] [id number] [facility] 2022-03-22 15:14:[address] [facility] [id number] [facility] 2022-03-18 11:47:[address] [facility] [id number] [facility] 2024-11-11 00:00:00 2024-11-11 00:00:00 Outpatient GARTH BUSTAMANTE [id number] [facility] 2024-11-07 00:00:00 2024-11-07 00:00:00 Outpatient GARTH BUSTAMANTE [id number] [facility] 2024-10-25 00:00:00 2024-10-25 00:00:00 Outpatient ANGELA MILLER [id number] [facility] 2024-10-24 00:00:00 2024-10-24 00:00:00 Outpatient GARTH BUSTAMANTE [id number] [facility] 2024-10-23 00:00:00 2024-10-23 00:00:00 Outpatient GARTH BUSTAMANTE [id number] [facility] 2024-10-23 00:00:00 2024-10-23 00:00:00 Outpatient GARTH BUSTAMANTE [id number] [facility] 2024-10-23 00:00:00 2024-10-23 00:00:00 Outpatient ANGELA MILLER [id number] [place] [facility]:00:00 2024-10-14 00:00:00 Outpatient MD ANGELA DONAHUE [id number] [facility] 2024-10-11 00:00:00 2024-10-11 00:00:00 Outpatient GARTH BUSTAMANTE [id number] [facility]:00:00 2024-10-07 00:00:00 Outpatient GARTH BSUTAMANTE [id number] [facility] 2024-09-27 13:45:00 2024-09-27 13:45:00 Outpatient JACQUELINE FRAUSTO ANGELA MILLER [id number] [facility] 2024-09-27 00:00:00 2024-09-27 00:00:00 Outpatient ANGELA MILLER [id number] [facility] 2024-09-26 00:00:00 2024-09-26 00:00:00 Outpatient GARTH BUSTAMANTE [id number] [facility] 2024-09-25 00:00:00 2024-09-25 00:00:00 Outpatient KERWINSHANIKAACACIA ANGELA MILLER [id number] [facility] 2024-09-25 00:00:00 2024-09-25 00:00:00 Outpatient MEAGHAN MORALES ANGELA MILLER [id number] [facility] 2024-09-24 00:00:00 2024-09-24 00:00:00 Outpatient GARTH BUSTAMANTE [id number] [facility] 2024-09-24 00:00:00 2024-09-24 00:00:00 Outpatient JACQUELINE FRAUSTO ANGELA MILLER [id number] [facility] 2024-09-23 00:00:00 2024-09-23 00:00:00 Outpatient GARTH BUSTAMANTE [id number] [facility] 2024-09-17 00:00:00 2024-09-17 00:00:00 Outpatient GARTH BUSTAMANTE [id number] [facility] 2024-09-10 00:00:00 2024-09-10 00:00:00 Outpatient GARTH BUSTAMANTE [id number] [facility] 2024-09-06 00:00:00 2024-09-06 00:00:00 Outpatient GARTH BUSTAMANTE [id number] [facility] 2024-09-05 00:00:00 2024-09-05 00:00:00 Outpatient [facility] [id number] [facility]:00:00 2024-09-03 00:00:00 Outpatient DIANNA GARTH MILLER [id number] [facility] 2024-09-02 00:00:00 2024-09-02 00:00:00 Outpatient ANGELA MILLER [id number] [facility] 2024-08-29 00:00:00 2024-08-29 00:00:00 Outpatient DIANNA GARTH MILLER [id number] [facility] 2024-08-27 09:20:00 2024-08-27 09:20:00 Outpatient DOLORES ANTHONYZHANE MILLER [id number] [facility] 2024-08-27 00:00:00 2024-08-27 00:00:00 Outpatient GARTH BUSTAMANTE [id number] [facility] 2024-08-26 00:00:00 2024-08-26 00:00:00 Outpatient [facility]AR[facility] BUSTAMANTE [id number] [facility]24-08-26 00:00:00 2024-08-26 00:00:00 Outpatient ACACIA REYES [id number] [facility] 2024-08-26 00:00:00 2024-08-26 00:00:00 Outpatient JACQUELINE FRAUSTO [id number] [facility] 2024-08-26 00:00:00 2024-08-26 00:00:00 Outpatient MD ANGELA DONAHUE [id number] [facility] 2024-08-23 00:00:00 2024-08-23 00:00:00 Outpatient WIN ELMORE [id number] [facility] 2024-08-21 00:00:00 2024-08-21 00:00:00 Outpatient JOSE LEIVA [id number] [facility] 2024-08-14 00:00:00 2024-08-14 00:00:00 Outpatient VIGNESH SHELLEY [id number] [facility] 2024-08-12 16:00:00 2024-08-12 16:00:00 Outpatient LAB69 ANGELA MILLER [id number] [facility] 2024-08-12 00:00:00 2024-08-12 00:00:00 Outpatient GARTH BUSTAMANTE [id number] Angela [facility] 2024-08-09 00:00:00 2024-08-09 00:00:00 Outpatient JOSE LEIVA [id number] [facility] 2024-08-09 00:00:00 2024-08-09 00:00:00 Outpatient ME VICKIMANOLO MILLER [id number] [facility] 2024-08-09 00:00:00 2024-08-09 00:00:00 Outpatient ME VICKIMANOLO MILLER [id number] [facility] 2024-08-08 00:00:00 2024-08-08 00:00:00 Outpatient JOSE LEIVA [id number] [facility] 2024-07-30 00:00:00 2024-07-30 00:00:00 Outpatient GARTH BUSTAMANTE [id number] [facility] 2024-07-26 00:00:00 2024-07-26 00:00:00 Outpatient ACACIA REYES [id number] [facility] 2024-07-26 00:00:00 2024-07-26 00:00:00 Outpatient GARTH BUSTAMANTE [id number] [facility] 2024-07-26 00:00:00 2024-07-26 00:00:00 Outpatient MD ANGELA DONAHUE [id number] Angela [facility] 2024-07-25 00:00:00 2024-07-25 00:00:00 Outpatient ANGELA MILLER [id number] Angela Sey[facility] 2024-07-23 00:00:00 2024-07-23 00:00:00 Outpatient GARTH BUSTAMANTE [id number] [facility] 2024-07-23 00:00:00 2024-07-23 00:00:00 Outpatient JACQUELINE FRAUSTO ANGELA MILLER [id number] [facility] 2024-07-22 00:00:00 2024-07-22 00:00:00 Outpatient GARTH BUSTAMANTE ANGELA MILLER [id number] [facility] 2024-07-19 00:00:00 2024-07-19 00:00:00 Outpatient GARTH BUSTAMANTE ANGELA MILLER [id number] [facility] 2024-07-18 00:00:00 2024-07-18 00:00:00 Outpatient ABBIE, JOSE MILLER [id number] [facility] 2024-07-17 13:35:00 2024-07-17 13:35:00 Outpatient LAB45 ANGELA MILLER [id number] [facility] 2024-07-17 13:30:00 2024-07-17 13:30:00 Outpatient LAB45 ANGELA MILLER [id number] [facility] 2024-[facility]-17 13:00:00 2024-07-17 13:00:00 Outpatient FRANKIE SHARMA [id number] Angela Seybold 2024-07-17 00:00:00 2024-07-17 00:00:00 Outpatient SHANNA JARA [id number] Angela [facility] 2024-07-16 00:00:00 2024-07-16 00:00:00 Outpatient MD ANGELA DONAHUE [id number] [facility] 2024-07-16 00:00:00 2024-07-16 00:00:00 Outpatient MICHELA SAAB [id number] Angela Seybold 2024-07-12 00:00:00 2024-07-12 00:00:00 Outpatient ABBIE, JOSE MILLER [id number] [facility] 2024-07-12 00:00:00 2024-07-12 00:00:00 Outpatient YARA DAVIS [id number] [facility] 2024-07-11 00:00:00 2024-07-11 00:00:00 Outpatient SHANNA JARA ANGELA MILLER [id number] Angela [facility] 2024-07-11 00:00:00 2024-07-11 00:00:00 Outpatient SHANNA JARA ANGELA MILLER [id number] [facility] 2024-07-11 00:00:00 2024-07-11 00:00:00 Outpatient GARTH BUSTAMANTE ANGELA MILLER [id number] [facility] 2024-07-10 00:00:00 2024-07-10 00:00:00 Outpatient DIANNAGARTH RAINEY ANGELA MILLER [id number] [facility] 2024-07-09 10:15:00 2024-07-09 10:15:00 Outpatient SAABMICHELA ANGELA MILLER [id number] [facility] 2024-07-09 00:00:00 2024-07-09 00:00:00 Outpatient DIANNAGARTH RAINEY ANGELA MILLER [id number] [facility] 2024-07-08 15:30:00 2024-07-08 15:30:00 Outpatient ABBIE, JOSE ANGELA MILLER [id number] [facility] 2024-07-08 14:00:00 2024-07-08 14:00:00 Outpatient 156JABIER ANGELA MILLER [id number] [facility] 2024-07-08 13:45:00 2024-07-08 13:45:00 Outpatient MASSUMI, JACQUELINE ANGELA MILLER [id number] Angela Seybold 2024-07-08 00:00:00 2024-07-08 00:00:00 Outpatient MORALES, MEAGHAN ANGELA MILLER [id number] Angela Seybold 2024-07-05 11:45:00 2024-07-05 11:45:00 Outpatient LAB39 ANGELA MILLER [id number] Angela Seybold 2024-07-05 09:30:00 2024-07-05 09:30:00 Outpatient ABBIE, JOSE MILLER [id number] Angela Sey[facility] 2024-07-05 00:00:00 2024-07-05 00:00:00 Outpatient ISIDORO YAÑEZ [id number] Angela [facility] 2024-07-04 09:00:00 2024-07-04 09:00:00 Outpatient DIANNAGARTH RAINEY ANGELA MILLER [id number] Angela Seybold 2024-07-04 00:00:00 2024-07-04 00:00:00 Outpatient SHANNA JARA ANGELA MILLER [id number] Angela Seybold 2024-07-03 00:00:00 2024-07-03 00:00:00 Outpatient SHANNA JARA ANGELA MILLER [id number] Angela Sey[facility] 2024-07-03 00:00:00 2024-07-03 00:00:00 Outpatient EARLRODRÍGUEZ NEWBERRY ANGELA MILLER [id number] Angela Seybold 2024-07-02 00:00:00 2024-07-02 00:00:00 Outpatient MASSIEL AHMADI [id number] Angela Seybold 2024-07-02 00:00:00 2024-07-02 00:00:00 Outpatient ROBERTWIN ANGELA MILLER [id number] Angela Seybold 2024-07-02 00:00:00 2024-07-02 00:00:00 Outpatient ERIC ACACIASHELLI MILLER [id number] Angela Seybold 2024-06-28 00:00:00 2024-06-28 00:00:00 Outpatient ANGELA MILLER [id number] Angela [facility] 2024-06-24 00:00:00 2024-06-24 00:00:00 Outpatient PREWIN NORIEGA [id number] Angela Seybold 2024-06-21 00:00:00 2024-06-21 00:00:00 Outpatient PREHARI WIN MILLER [id number] Angela Seybold 2024-06-20 14:15:00 2024-06-20 14:15:00 Outpatient DIANNAGARTH NORWOOD ANGELA MILLER [id number] Angela Seybold 2024-06-13 00:00:00 2024-06-13 00:00:00 Outpatient NEVINAMADAVanessa WIN ANGELA MILLER [id number] Angela Seybold 2024-06-11 00:00:00 2024-06-11 00:00:00 Outpatient MD ANGELA DONAHUE [id number] Angela Seybd[facility]rell 2024-06-11 00:00:00 2024-06-11 00:00:00 Outpatient NEVINWIN NORIEGA [id number] Angela Seybdarrell 2024-06-10 10:00:00 2024-06-10 10:00:00 Outpatient JAMEL POOL [id number] [facility] 2024-06-10 00:00:00 2024-06-10 00:00:00 Outpatient JAMEL POOL [id number] [facility] 2024-06-10 00:00:00 2024-06-10 00:00:00 Outpatient ANGELA MILLER [id number] [facility] 2024-06-10 00:00:00 2024-06-10 00:00:00 Outpatient MD ANGELA DONAHUE [id number] [facility] 2024-06-07 00:00:00 2024-06-07 00:00:00 Outpatient NEVINAMADAWIN Mendez ANGELA MILLER [id number] [facility] 2024-06-05 15:20:00 2024-06-05 15:20:00 Outpatient JJ MILLER [id number] Angela Sey[facility] 2024-06-05 14:30:00 2024-06-05 14:30:00 Outpatient MASSIEL AHMADI [id number] Angela Seybold 2024-06-03 00:00:00 2024-06-03 00:00:00 Outpatient ANGELA MILLER [id number] Angela Seybdarrell 2024-06-01 00:00:00 2024-06-01 00:00:00 Outpatient URBANO REDD [id number] Angela Seybold 2024-05-31 11:05:00 2024-05-31 11:05:00 Outpatient ANGELA MILLER [id number] Angela Seybold 2024-05-31 11:00:00 2024-05-31 11:00:00 Outpatient OCKSRIDMAURICE TROY ANGELA MILLER [id number] [facility] 2024-05-31 00:00:00 2024-05-31 00:00:00 Outpatient ANGELA MILLER [id number] [facility] 2024-05-31 00:00:00 2024-05-31 00:00:00 Outpatient ANGELA MILLER [id number] [facility] 2024-05-30 08:40:00 2024-05-30 08:40:00 Outpatient OCMAURICE RUBI ANGELA MILLER [id number] [facility] 2024-05-30 00:00:00 2024-05-30 00:00:00 Outpatient PREWIN NORIEGA ANGELA MILLER [id number] [facility] 2024-05-30 00:00:00 2024-05-30 00:00:00 Outpatient OCKSKATE MAURICE ANGELA MILLER [id number] [facility] 2024-05-28 00:00:00 2024-05-28 00:00:00 Outpatient WIN ELMORE ANGELA MILLER [id number] [facility] 2024-05-27 16:15:00 2024-05-27 16:15:00 Outpatient QUITA PACKER ANGELA MILLER [id number] [facility] 2024-05-16 19:14:00 2024-05-27 13:11:00 Inpatient Emergency AL MALONEY [facility] General Medicine [id number] [facility] 2024-05-16 19:14:00 2024-05-27 13:11:00 Hospital Encounter Hi Rojo John Cheng-Huey Gunawan, Jonas Sokunbi, Abimbola Olayinka [facility] [id number] [facility] 2024-05-27 10:30:00 2024-05-27 10:30:00 Outpatient MASSUMI, JACQUELINE ANGELA MILLER [id number] [facility] 2024-05-27 00:00:00 2024-05-27 00:00:00 Outpatient AL MALONEY ANGELA MILLER [id number] Angela [facility] 2024-05-25 00:00:00 2024-05-25 00:00:00 Outpatient WIN ELMORE ANGELA MILLER [id number] Angela Seybold 2024-05-24 00:00:00 2024-05-24 00:00:00 Outpatient AL MALONEY ANGELA MILLER [id number] Angela Seybold 2024-05-14 13:00:00 2024-05-14 13:00:00 Outpatient WENDIFRANCESCA Scott ANGELA MILLER [id number] Angela Seybold 2024-05-13 00:00:00 2024-05-13 00:00:00 Outpatient WIN ELMORE ANGELA MILLER [id number] Angela Seybold 2024-05-13 00:00:00 2024-05-13 00:00:00 Outpatient SHANNA JARA [id number] Angela Seybold 2024-05-13 00:00:00 2024-05-13 00:00:00 Outpatient WIN ELMORE ANGELA MILLER [id number] Angela Seybold 2024-05-10 16:05:00 2024-05-10 16:05:00 Outpatient ANGELA MILLER [id number] Angela [facility] 2024-05-10 15:00:00 2024-05-10 15:00:00 Outpatient MEAGHAN MORALES ANGELA MILLER [id number] Angela Seybold 2024-05-10 10:00:00 2024-05-10 10:00:00 Outpatient WENDI LEANADORYS ANGELA MILLER [id number] Angela Seybold 2024-05-09 00:00:00 2024-05-09 00:00:00 Outpatient SHANNA JARA [id number] Angela Seybold 2024-05-09 00:00:00 2024-05-09 00:00:00 Outpatient LEANA ADAMEDORYS ANGELA MILLER [id number] Angela Seybold 2024-05-08 16:55:00 2024-05-08 16:55:00 Outpatient JJ ANGELA MILLER [id number] Angela Seybold 2024-05-08 16:00:00 2024-05-08 16:00:00 Outpatient DAIANA MASSIEL MILLER [id number] Angela Seybdarrell 2024-05-08 00:00:00 2024-05-08 00:00:00 Outpatient PREZASWIN ANGELA MILLER [id number] Angela Seybdarrell 2024-05-08 00:00:00 2024-05-08 00:00:00 Outpatient MEAGHAN MORALES ANGELA MILLER [id number] Angela Seybold 2024-05-07 09:15:00 2024-05-07 09:15:00 Outpatient SHER RITCHIE [id number] [facility] 2024-05-06 08:30:00 2024-05-06 08:30:00 Outpatient MASSIEL AHMADI [id number] [facility] 2024-05-06 00:00:00 2024-05-06 00:00:00 Outpatient PREZASWIN ANGELA MILLER [id number] Angela Seybd[facility]rell 2024-04-29 08:00:00 2024-04-29 08:00:00 Outpatient MASSIEL AHMADI [id number] [facility] 2024-04-29 00:00:00 2024-04-29 00:00:00 Outpatient PREZASYADEEWINLUIZ MILLER [id number] [facility] 2024-04-29 00:00:00 2024-04-29 00:00:00 Outpatient PREZAS WIN MILLER [id number] Angela Seybold 2024-04-25 00:00:00 2024-04-25 00:00:00 Outpatient ANGELA MILLER [id number] Angela Seybold 2024-04-25 00:00:00 2024-04-25 00:00:00 Outpatient PREZAS, WIN MILLER [id number] Angela Seybold 2024-04-24 00:00:00 2024-04-24 00:00:00 Outpatient MASSJACQUELINE JOHN [id number] Angela Joyner 2024-04-23 00:00:00 2024-04-23 00:00:00 Outpatient PREZAS, WIN ANGELA MILLER [id number] Angela Joyner 2024-04-23 00:00:00 2024-04-23 00:00:00 Outpatient PREZAS, WIN ANGELA MILLER [id number] Angela Robisonybdarrell 2024-04-15 00:00:00 2024-04-15 00:00:00 Outpatient PREZAS, WIN ANGELA MILLER [id number] Angela Joyner 2024-04-10 11:15:00 2024-04-10 11:15:00 Outpatient SHER RITCHIE [id number] Angela Joyner 2024-04-09 00:00:00 2024-04-09 00:00:00 Outpatient PREZAS, WIN ANGELA MILLER [id number] Angela Joyner 2024-04-09 00:00:00 2024-04-09 00:00:00 Outpatient PREZAS, WIN ANGELA MILLER [id number] Angela Joyner 2024-04-08 12:10:00 2024-04-08 12:10:00 Outpatient OID128 ANGELA MILLER [id number] Angela Robisonybd[facility]rell 2024-04-08 11:00:00 2024-04-08 11:00:00 Outpatient JACQUELINE FRAUSTO ANGELA MILLER [id number] Angela Seybdarrell 2024-03-28 00:00:00 2024-03-28 00:00:00 Outpatient ANGELA MILLER [id number] Angela ybdarrell 2024-03-22 16:15:00 2024-03-22 16:15:00 Outpatient VICKI, JACQUELINEMANOLO MILLER [id number] Angela ybdarrell 2024-03-22 00:00:00 2024-03-22 00:00:00 Outpatient VICKI, JACQUELINEMANOLO MILLER [id number] Angela ybdarrell 2024-03-12 08:00:00 2024-03-12 08:00:00 Outpatient PREZAS, WIN ANGELA MILLER [id number] [facility] 2024-03-12 00:00:00 2024-03-12 00:00:00 Outpatient ACACIA REYES [facility] [id number] [facility]:00:00 2024-03-12 00:00:00 Outpatient WIN ELMORE ANGELA MILLER [id number] [facility] 2024-03-12 00:00:00 2024-03-12 00:00:00 Outpatient WIN ELMORE ANGELA MILLER [id number] [facility] 2024-03-11 00:00:00 2024-03-11 00:00:00 Outpatient WIN ELMORE ANGELA MILLER [id number] [facility] 2024-03-11 00:00:00 2024-03-11 00:00:00 Outpatient ANGELA MILLER [id number] [facility] 2024-03-04 13:52:00 2024-03-07 13:13:00 Inpatient Emergency AL MALONEY [facility] General Medicine [id number] [facility] 2024-03-04 13:52:00 2024-03-07 13:13:00 Hospital Encounter Alexia Sherman Jonas [facility] [id number] [facility] 2024-03-07 00:00:00 2024-03-07 00:00:00 Outpatient AL MALONEY [id number] [facility] 2024-03-07 00:00:00 2024-03-07 00:00:00 Outpatient JACQUELINE FRAUSTO ANGELA MILLER [id number] [facility] 2024-03-07 00:00:00 2024-03-07 00:00:00 Outpatient AL MALONEY [id number] [facility] 2024-03-05 00:00:00 2024-03-05 00:00:00 Outpatient ANGELA MILLER [id number] [facility] 2024-03-05 00:00:00 2024-03-05 00:00:00 Outpatient JERRICA BONNER ANGELA MILLER [id number] Angela Joyner 2024-03-04 00:00:00 2024-03-04 00:00:00 Outpatient ACACIA REYES ANGELA MILLER [id number] Angela Anya 2024-03-04 00:00:00 2024-03-04 00:00:00 Outpatient WIN ELMORE ANGELA MILLER [id number] Angela Robisondarrell 2024-03-04 00:00:00 2024-03-04 00:00:00 Outpatient JACQUELINE FRAUSTO ANGELA MILLER [id number] Angela [facility] 2024-03-04 00:00:00 2024-03-04 00:00:00 Outpatient ACACIA REYES ANGELA MILLER [id number] Angela Joyner 2024-03-04 00:00:00 2024-03-04 00:00:00 Outpatient AL MALONEY ANGELA MILLER [id number] Angela darrell 2024-03-01 11:15:00 2024-03-01 11:15:00 Outpatient ANGELA MILLER [id number] Angela darrell 2024-03-01 00:00:00 2024-03-01 00:00:00 Outpatient WIN ELMORE ANGELA MILLER [id number] Angela Anya 2024-03-01 00:00:00 2024-03-01 00:00:00 Outpatient ANGELA MILLER [id number] Angela darrell 2024-03-01 00:00:00 2024-03-01 00:00:00 Outpatient WIN ELMORE ANGELA MILLER [id number] Angela ybdarrell 2024-02-29 08:40:00 2024-02-29 08:40:00 Outpatient ANGELA MILLER [id number] Angela ybdarrell 2024-02-29 08:35:00 2024-02-29 08:35:00 Outpatient ANGELA MILLER [id number] Angela lilli 2024-02-29 08:30:00 2024-02-29 08:30:00 Outpatient OCKSRIDER, MAURICE ANGELA MILLER [id number] Angela Joyner 2024-02-29 07:45:00 2024-02-29 07:45:00 Outpatient LAB91 ANGELA MILLER [id number] Angela Joyner 2024-02-28 17:00:00 2024-02-28 17:00:00 Outpatient LAB39 ANGELA MILLER [id number] Angela Joyner 2024-02-28 15:30:00 2024-02-28 15:30:00 Outpatient MASSUMIJACQUELINE ANGELA MILLER [id number] Angela Joyner 2024-02-28 15:30:00 2024-02-28 15:30:00 Outpatient JABIER Mcbride ANGELA MILLER [id number] Angela Joyner 2024-02-28 14:45:00 2024-02-28 14:45:00 Outpatient KARLENESHER Rodriguez ANGELA MILLER [id number] Angela Joyner 2024-02-28 09:20:00 2024-02-28 09:20:00 Outpatient CARMENCECYARETHA Aly ANGELA MILLER [id number] Angela Joyner 2024-02-28 00:00:00 2024-02-28 00:00:00 Outpatient OCMAURICE RUBI ANGELA MILLER [id number] Angela Joyner 2024-02-27 00:00:00 2024-02-27 00:00:00 Outpatient WIN ELMORE ANGELA MILLER [id number] Angela Joyner 2024-02-26 17:15:00 2024-02-26 17:15:00 Outpatient LAB90 ANGELA MILLER [id number] Angela Joyner 2024-02-26 16:30:00 2024-02-26 16:30:00 Outpatient WIN ELMORE ANGELA MILLER [id number] Angela Joyner 2024-02-26 00:00:00 2024-02-26 00:00:00 Outpatient ANGELA MILLER [id number] Angela Anya 2024-02-23 00:00:00 2024-02-23 13:04:41 [facility] [id number] [facility] 20:17:00 2024-02-22 18:38:00 Inpatient Emergency GAUDENCIO [facility] General Medicine [id number] [facility] 2024-02-14 20:17:00 2024-02-22 18:38:00 Hospital Encounter Anastasia lundy, Hi Rivera, Samm Smith Kurt, Booker Jesus, Riya Ikugbagbe, Olaoluwapo Bryan, Gaudencio [facility] [id number] [facility] 2024-02-16 00:00:00 2024-02-16 00:00:00 Outpatient ANGELA MILLER [id number] [facility] 2023-10-15 00:00:00 2023-10-15 00:00:00 Outpatient WIN ELMORE [id number] [facility] 2023-08-13 00:00:00 2023-08-13 00:00:00 Outpatient WIN ELMORE [id number] [facility] 2023-06-22 14:30:00 2023-06-22 14:30:00 Outpatient NEVINZAWIN Mendez [id number] [facility] 2023-06-14 14:15:00 2023-06-14 14:15:00 Outpatient NEVINZAWIN Mendez [id number] [facility] 2023-05-23 00:00:00 2023-05-23 00:00:00 Outpatient ANGELA MILLER [id number] [facility] 2023-05-22 00:00:00 2023-05-22 00:00:00 Outpatient ANGELA MILLER [id number] [facility] 2023-05-05 00:00:00 2023-05-05 00:00:00 Outpatient PREZAWIN Mendez ANGELA [id number] [facility] 2023-05-05 00:00:00 2023-05-05 00:00:00 Outpatient PREZASWIN ANGELA [id number] [facility] 2023-05-04 00:00:00 2023-05-04 00:00:00 Outpatient ANGELA ANGELA [id number] [facility] 2023-05-04 00:00:00 2023-05-04 00:00:00 Outpatient PREZASWIN ANGELA [id number] [facility] 2023-05-03 00:00:00 2023-05-03 00:00:00 Outpatient PREZASWIN ANGELA [id number] [facility] 2023-05-02 14:00:00 2023-05-02 14:00:00 Outpatient KENRICK MILLER ANGELA [id number] [facility] 2023-05-02 13:30:00 2023-05-02 13:30:00 Outpatient PREZASWIN ANGELA [id number] [facility] 2023-05-01 00:00:00 2023-05-01 00:00:00 Outpatient [facility]WIN [facility] [id number] [facility] 10:30:00 2022-08-31 10:30:00 Outpatient PREZASWIN ANGELA MILLER [id number] [facility] 2022-06-17 15:45:00 2022-06-17 15:45:00 Outpatient ANGELA MILLER [id number] [facility] 2022-06-17 14:45:00 2022-06-17 14:45:00 Outpatient ANGELA MILLER [id number] [facility] 2022-05-23 14:45:00 2022-05-23 14:45:00 Outpatient ANGELA MILLER [id number] [facility] 2022-05-23 13:00:00 2022-05-23 13:00:00 Outpatient ANGELA MILLER [id number] [facility] 2022-05-23 11:30:00 2022-05-23 11:30:00 Outpatient [facility]ELA [facility] [id number] [facility] 10:30:00 2022-05-23 10:30:00 Outpatient [facility]EL[facility] [id number] [facility]-12 10:45:00 2022-05-12 10:45:00 Outpatient ANGELA ANGELA [id number] [facility]22-05-12 09:00:00 2022-05-12 09:00:00 Outpatient ANGELA ANGELA [id number] [facility]22-05-12 08:45:00 2022-05-12 08:45:00 Outpatient ANGELA MILLER [id number] [facility] 2022-05-11 10:30:00 2022-05-11 10:30:00 Outpatient ANSOAYOANDY VÁSQUEZ [id number] [facility] 13:10:00 2022-04-13 13:10:00 Outpatient GLENDY KEYES [id number] [facility] 2022-04-13 12:55:00 2022-04-13 12:55:00 Outpatient [facility] [id number] [facility] 2022-04-13 12:50:00 2022-04-13 12:50:00 Outpatient ANGELA MILLER [id number] [facility] 2022-04-11 00:00:00 2022-04-11 00:00:00 Outpatient GLENDY KEYES [id number] [facility] 2022-04-08 13:45:00 2022-04-08 13:45:00 Outpatient [facility]SYOANDY CHAVEZ [id number] [facility] 10:30:00 2022-04-08 10:30:00 Outpatient ANSYOANDY CHAVEZ [id number] [facility]-04-07 15:00:00 2022-04-07 15:00:00 Outpatient YOANDY MILLS [id number] [facility] 2022-04-07 00:00:00 2022-04-07 00:00:00 Out[facility]ILL[facility] [id number] [facility] 14:00:00 2022-04-04 15:08:55 Office Visit David Sandoval [facility] TRAN [id number] [facility] 2022-04-04 14:30:00 2022-04-04 14:30:00 Outpatient YOANDY MILSL [id number] [facility] 2022-04-04 14:00:00 2022-04-04 14:00:00 Outpatient [facility] [id number] [facility] 2022-03-31 00:00:00 2022-03-31 00:00:00 Outpatient LUL CUELLAR [id number] [facility] 2022-03-30 10:35:00 2022-03-30 10:35:[address] [facility] [id number] [facility] 2022-03-30 10:30:00 2022-03-30 10:30:00 Outpatient ADRY FAYE [facility] [id number] [facility] 2022-03-30 10:30:00 2022-03-30 10:30:[address] [facility] [id number] [facility] 2022-03-30 00:00:00 2022-03-30 00:00:00 Outpatient WIN ELMORE [id number] [facility] 2022-03-30 00:00:00 2022-03-30 00:00:00 Outpatient LUL CUELLAR [id number] [facility] 2022-03-23 00:00:00 2022-03-23 00:00:00 Outpatient FRANCIE DEL CID [id number] Angela [facility] 2022-03-22 00:00:00 2022-03-22 00:00:00 Outpatient WIN ELMORE [id number] Angela Joyner 2022-03-22 00:00:00 2022-03-22 00:00:00 Outpatient PREWIN NORIEGA [id number] Angela Joyner 2022-03-03 10:45:00 2022-03-03 10:45:00 Outpatient PREWIN NORIEGA [id number] Angela Joyner 2021-12-20 00:00:00 2021-12-20 00:00:00 Outpatient PREWIN NORIEGA [id number] Angela Joyner 2021-12-01 11:00:00 2021-12-01 11:00:00 Outpatient PREZAWIN Mendez [id number] Angela Joyner 2021-11-30 00:00:00 2021-11-30 00:00:00 Outpatient WIN ELMORE [id number] Angela Joyner Results Test Description Test Time Test Comments Results Result Co mments Source [facility] Xpsjlgu9821-56-26 17:14:59* Test Item Value Reference Range Interpretation Comme nts POC Glu (test code = 6437384899) 101 mg/dL 70-99 H POC Glu Comment 1 (test code = 7129075915) Notified RN/MD POC Performing Location (michi t code = 0131839331) 7 [facility] Lab Interpretation (test cod e = 77876-6) Abnormal [facility] Danxfez8645-47-07 12:25:45* Test Item Value Reference Range Interpretation Comme nts POC Glu (test code = 1552368272) 89 mg/dL 70-99 POC Glu Comment 1 (test code = 3514302658) Notified RN/MD POC Performing Location (michi t code = 3977528696) 7 [facility] Cghkap9204-18-66 07:01:46* Test Item Value Reference Range Interpretation Comme nts Hold Specimen (test code = 293) Hold for add-ons. Auto resulted. [facility] Mjigbyb8909-66-95 06:38:23* Test Item Value Reference Range Interpretation Comme nts POC Glu (test code = 4342998039) 101 mg/dL 70-99 H POC Performing Location (michi t code = 1748371982) 7 [facility] Lab Interpretation (test cod e = 49348-8) Abnormal [facility] Isndcbt8772-53-14 16:45:04* Test Item Value Reference Range Interpretation Comme nts POC Glu (test code = 2424373820) 112 mg/dL 70-99 H POC Glu Comment 1 (test code = 4641948516) Notified RN/MD POC Performing Location (michi t code = 3494311385) [facility] Lab Interpretation (test cod e = 83719-4) Abnormal [facility] Npmjxzw4712-87-28 12:06:51* Test Item Value Reference Range Interpretation Comme nts POC Glu (test code = 0684457245) 104 mg/dL 70-99 H POC Glu Comment 1 (test code = 0645816647) Notified RN/MD POC Performing Location (michi t code = 0500519907) [facility] Lab Interpretation (test cod e = 65395-5) Abnormal [facility] Htcohkz4608-45-17 06:14:56* Test Item Value Reference Range Interpretation Comme nts POC Glu (test code = 7611766397) 105 mg/dL 70-99 H POC Performing Location (michi t code = 3774038866) 7 [facility] Lab Interpretation (test cod e = 36894-8) Abnormal [facility] Rcwcaum5842-63-89 13:18:54* Test Item Value Reference Range Interpretation Comme nts POC Glu (test code = 8635627457) 119 mg/dL 70-99 H POC Glu Comment 1 (test code = 7449507735) Notified RN/MD POC Performing Location (michi t code = 1943608725) MICU Lab Interpretation (test cod e = 47937-1) Abnormal [facility] Oresbrc0213-49-84 08:53:51* Test Item Value Reference Range Interpretation Comme nts POC Glu (test code = 3884948943) 103 mg/dL 70-99 H POC Glu Comment 1 (test code = 6094267283) Notified RN/MD POC Performing Location (michi t code = 9054630782) MICU Lab Interpretation (test cod e = 27973-6) Abnormal [facility] Kfpwyhz4564-89-54 17:56:29* Test Item Value Reference Range Interpretation Comme nts POC Glu (test code = 2398654028) 129 mg/dL 70-99 H POC Performing Location (michi t code = 6208033762) MICU Lab Interpretation (test cod e = 80536-0) Abnormal [facility] Xjsiurl0158-22-26 14:27:45* Test Item Value Reference Range Interpretation Comme nts POC Glu (test code = 6681299114) 112 mg/dL 70-99 H POC Performing Location (michi t code = 2529709177) SICU Lab Interpretation (test cod e = 01547-1) Abnormal [facility] Mspwkxo3241-47-58 09:04:09* Test Item Value Reference Range Interpretation Comme nts POC Glu (test code = 7291930618) 76 mg/dL 70-99 POC Glu Comment 1 (test code = 8472987159) Notified RN/MD POC Performing Location (michi t code = 0392655961) [facility] Upqgrhj5795-31-66 16:49:11* Test Item Value Reference Range Interpretation Comme nts POC Glu (test code = 5764276859) 90 mg/dL 70-99 POC Glu Comment 1 (test code = 7240292416) Notified RN/MD POC Performing Location (michi t code = 7807780294) [facility] Qgqxdgw8631-24-74 20:10:19* Test Item Value Reference Range Interpretation Comme nts POC Glu (test code = 8130691150) 84 mg/dL 70-99 POC Glu Comment 1 (test code = 2217418829) Notified RN/MD POC Performing Location (michi t code = 4515434528) [facility] Npjhlzz5500-08-65 16:56:39* Test Item Value Reference Range Interpretation Comme nts POC Glu (test code = 8305737832) 103 mg/dL 70-99 H POC Performing Location (michi t code = 2897415160) MICU Lab Interpretation (test cod e = 90178-0) Abnormal [facility] Wvxunxf0184-98-04 12:07:54* Test Item Value Reference Range Interpretation Comme nts POC Glu (test code = 6083959101) 115 mg/dL 70-99 H POC Performing Location (michi t code = 7389311419) MICU Lab Interpretation (test cod e = 75957-3) Abnormal [facility] Bihygvl8282-60-32 08:15:29* Test Item Value Reference Range Interpretation Comme nts POC Glu (test code = 7106830525) 78 mg/dL 70-99 POC Performing Location (michi t code = 4312670550) [facility] Ngocefh3057-65-31 04:19:27* Test Item Value Reference Range Interpretation Comme nts POC Glu (test code = 8435628452) 74 mg/dL 70-99 POC Glu Comment 1 (test code = 5477870699) Notified RN/MD POC Performing Location (michi t code = 7850179613) [facility] Giwvdhg0120-45-27 00:43:46* Test Item Value Reference Range Interpretation Comme nts POC Glu (test code = 4031999432) 98 mg/dL 70-99 POC Glu Comment 1 (test code = 4066450673) Notified RN/MD POC Performing Location (michi t code = 9347107606) [facility] Qfcieqb3833-43-50 20:59:23* Test Item Value Reference Range Interpretation Comme nts POC Glu (test code = 0790856810) 120 mg/dL 70-99 H POC Glu Comment 1 (test code = 3128322000) Notified RN/MD POC Performing Location (michi t code = 9035001417) [facility] Lab Interpretation (test cod e = 76399-4) [facility] actimhyf3402-24-71 19:58:07* Test Item Value Reference Range Interpretation Comme nts RVOT Vmean (test code = 1704155785) 0.45 m/s LVOT Vmax/AV Vmax (test code = 5880074875) 0.64 {ratio} LVOT Vmean (test code = 1951552531) 0.76 m/s LV SV (A4C) (test code = 2860024579) 43.7 ml LV SI (A2C) (test code = 9616954982) 36.6 ml LV SV (BP) (test code = 1205488212) 39.8 ml LVLs (A4C) (test code = 2683073392) 62 mm LVLs (A2C) (test code = 9397217545) 68.7 mm LVLd (A4C) (test code = 8913683673) 79.2 mm LVLd (A2C) (test code = 0341863892) 76.9 mm PV mn brendan (test code = 9659650739) 0.59 m/s LV ESV A2C (test code = 1267169080) 23.1 mL LV EDV A4C (test code = 8835813349) 76.1 mL LV ESV A4C (test code = 3696860466) 32.3 mL LV EDV A2C (test code = 2161397411) 59.6 mL MV max brendan (test code = 1936488773) 1.31 cm/s TR pk grad (test code = 9958985575) mmHg MV mn brendan (test code = 4804832236) 0.966 m/s LV est EF (test code = 7424016613) 52 % LV EDV BP (test code = 4393409127) 68.3 mL LV ESV BP (test code = 9638361776) 28.5 mL MV PHT (test code = 8615371712) 67 ms MV VTI (test code = 7258546128) 21.8 cm MV E pk brendan (test code = 6172691112) 1.13 m/s PV mn grad (test code = 4249906531) mmHg MV pk grad (test code = 6468858698) mmHg AV pk grad (test code = 8761633182) mmHg LV stroke vol (test code = 5816944605) 75 ml RVOT VTI (test code = 6449406638) 13.8 cm RVOT pk brendan (test code = 2087691682) 0.68 m/s AV VTI (test code = 4211725239) 38.9 cm AV pk brendan (test code = 9747209016) 1.79 m/s LVOT VTI (test code = 2136676964) 19.7 cm LVOT pk brendan (test code = 1124283218) 1.15 m/s LVOT area (test code = 6754277545) 3.8 cm2 LVOT diam (test code = 7582928312) 22 mm MV DT (test code = 7619504550) 209 ms PV pk grad (test code = 7663960925) mmHg MV area cont eq (test code = 6318449047) 3.43 cm2 MV area PHT (test code = 6165044319) 3.28 cm2 MV mn grad (test code = 4547600058) mmHg LVOT pk grad (test code = 7341490073) mmHg AV mn grad (test code = 9766448198) mmHg RVOT mn grad (test code = 2422626142) mmHg RVOT pk grad (test code = 5222181881) mmHg TR pk brendan (test code = 0401674826) 2.61 m/s AV area pk brendan (test code = 2276781949) 2.44 cm2 AV area cont VTI (test code = 6980116130) 1.92 cm2 LVOT mn grad (test code = 3817066018) mmHg LV A4C EF (test code = 5159895273) 58 % LV A2C EF (test code = 4236466345) 61 % AV mn brendan (test code = 8349187388) 1.27 m/s LVPWd (test code = 1552976162) 11 mm LA size (test code = 1483066733) 42 mm LV biplane EF (test code = 4481560479) 58.3 % Fractional Shortening 2D (te st code = 4904076741) 26 % LVIDs (test code = 2348082059) 31 mm IVSd (test code = 1787271298) 10 mm LVIDd (test code = 7955795316) 41 mm PV pk brendan (test code = 2110882177) 0.78 m/s PV VTI (test code = 7661264) 20.5 cm LV ESV 2D (test code = 9713780) 36.7 mL LV EDV 2D (test code = 9707684) 75.9 mL IVSd 2D (test code = 3810140) 10.4 cm BSA (test code = 7285403175) 2.75 m2 Radiology Study observation (narrative) (test code = 05620-4) DIAMOND (test code = DIAMOND) [facility] Ykeqpuk9960-74-94 16:30:02* Test Item Value Reference Range Interpretation Comme nts POC Glu (test code = 8318478323) 110 mg/dL 70-99 H POC Performing Location (michi t code = 1343137439) MICU Lab Interpretation (test cod e = 63321-6) Abnormal [facility] Arterial Blood Gas Unanu4246-05-99 13:47:37* Test Item Value Reference Range Interpretation Comme nts POC A Temp (test code = 0805262561) DegC POC A Source (test code = 8773842489) ART POC A pH (test code = 2744-1) 7.35-7.45 POC A PCO2 (test code = 2019-8) See_Comment HH [Automated message] The system which generated this result transmitted reference range: 35 - 45 mmHg. The reference range was not used to interpret this result as normal/abnormal. POC A PO2 (test code = 2703-7) See_Comment L [Automated message] The system which generated this result transmitted reference range: 80 - 100 mmHg. The reference range was not used to interpret this result as normal/abnormal. POC A HCO3 (test code = 1960-4) See_Comment H [Automated message] The system which generated this result transmitted reference range: 22 - 26 mMol/L. The reference range was not used to interpret this result as normal/abnormal. POC A BE (test code = 1925-7) See_Comment H [Automated message] The system which generated this result transmitted reference range: -2 - 2 mMol/L. The reference range was not used to interpret this result as normal/abnormal. POC A O2 Sat (calc) (test code = 2708-6) 92.1 % 95-100 L POC A %FIO2 (test code = 9443396522) 50 % POC A Mode #1 (test code = 0144882393) HFNC 25LPM/.50 POC Performing Location (test code = 6027476041) [facility] Lab Interpretation (test code = 08197-3) Abnormal [facility] Fekqume6689-83-15 11:36:52* Test Item Value Reference Range Interpretation Comme nts POC Glu (test code = 9238895616) 96 mg/dL 70-99 POC Performing Location (michi t code = 7897502369) MICU [facility] 12 hwsu3469-04-19 08:23:34* Test Item Value Reference Range Interpretation Comme nts Ventricular Rate (test code = 8859963510) BPM Atrial Rate (test code = 6366620966) BPM QRS Duration (test code = 0371562906) 104 ms QT/QTc (test code = 5406055104) 394 ms QTc Calculation (test code = 4971688801) 439 ms R-Garland (test code = 2567779072) degrees T-Garland (test code = 0921888542) degrees IMP (test code = IMP) PXN (test code = PXN) [facility]2025-03-31 08:05:44* Test Item Value Reference Range Interpretation Comme nts POC Glu (test code = 1907277706) 112 mg/dL 70-99 H POC Performing Location (michi t code = 2384598706) MICU Lab Interpretation (test cod e = 66912-8) Abnormal [facility] Zdibqbu0058-03-67 16:13:36* Test Item Value Reference Range Interpretation Comme nts POC Glu (test code = 6407415325) 120 mg/dL 70-99 H POC Glu Comment 1 (test code = 7400850867) Notified RN/MD POC Performing Location (michi t code = 6988253816) SICU Lab Interpretation (test cod e = 21694-9) Abnormal [facility] Fmdpceg7041-81-09 12:35:03* Test Item Value Reference Range Interpretation Comme nts POC Glu (test code = 6441646772) 112 mg/dL 70-99 H POC Performing Location (michi t code = 1328970851) SICU Lab Interpretation (test cod e = 21061-9) Abnormal [facility] Orhedyv1854-98-54 08:49:51* Test Item Value Reference Range Interpretation Comme nts POC Glu (test code = 9793102114) 92 mg/dL 70-99 POC Performing Location (michi t code = 5426380018) [facility] Nkqzmlg6527-08-93 04:22:51* Test Item Value Reference Range Interpretation Comme nts POC Glu (test code = 2422494067) 86 mg/dL 70-99 POC Performing Location (michi t code = 6906232825) [facility] Epxnrjy9166-36-02 00:06:58* Test Item Value Reference Range Interpretation Comme nts POC Glu (test code = 8424664205) 103 mg/dL 70-99 H POC Glu Comment 1 (test code = 7822937931) Notified RN/MD POC Glu Comment 2 (test code = 9478833167) Cleaned Meter POC Performing Location (michi t code = 0851872438) MICU Lab Interpretation (test cod e = 97563-1) Abnormal [facility] Bwmtzqd0763-69-15 20:17:09* Test Item Value Reference Range Interpretation Comme nts POC Glu (test code = 7160836525) 107 mg/dL 70-99 H POC Glu Comment 1 (test code = 0415241411) Notified RN/MD POC Glu Comment 2 (test code = 7060935358) Cleaned Meter POC Performing Location (michi t code = 4781714235) MICU Lab Interpretation (test cod e = 73189-6) Abnormal [facility] Qfwabpf3841-30-59 17:21:44* Test Item Value Reference Range Interpretation Comme nts POC Glu (test code = 5730037261) 63 mg/dL 70-99 L POC Glu Comment 1 (test code = 6558581669) Notified RN/MD POC Performing Location (michi t code = 8638760479) MICU Lab Interpretation (test cod e = 56845-9) Abnormal [facility] Deolqec1601-32-89 12:34:07* Test Item Value Reference Range Interpretation Comme nts POC Glu (test code = 9079326179) 70 mg/dL 70-99 POC Glu Comment 1 (test code = 1233196267) Notified RN/MD POC Performing Location (michi t code = 0623055934) [facility] Xmffdzy8020-65-00 09:29:09* Test Item Value Reference Range Interpretation Comme nts POC Glu (test code = 2362968028) 94 mg/dL 70-99 POC Glu Comment 1 (test code = 5728838557) Notified RN/MD POC Performing Location (michi t code = 2648060358) SICU [facility] Ihhzevi2179-98-86 04:21:32* Test Item Value Reference Range Interpretation Comme nts POC Glu (test code = 3259312244) 123 mg/dL 70-99 H POC Glu Comment 1 (test code = 4499301207) Notified RN/MD POC Glu Comment 2 (test code = 6693181912) Cleaned Meter POC Performing Location (michi t code = 4520252718) MICU Lab Interpretation (test cod e = 20378-7) Abnormal [facility] Arterial Blood Gas and Basic Lsqhx4426-20-64 04:18:27* Test Item Value Reference Range Interpretation Comme nts POC A Temp (test code = 6234713798) DegC POC A Source (test code = 8465843875) ART POC A pH (test code = 2744-1) 7.35-7.45 L POC A PCO2 (test code = 2019-) See_Comment HH [Automated messa ge] The system which generated this result transmitted reference range: 35 - 45 mmHg. The reference range was not used to interpret this result as normal/abnormal. POC A PO2 (test code = 2703-7) See_Comment L [Automated messa ge] The system which generated this result transmitted reference range: 80 - 100 mmHg. The reference range was not used to interpret this result as normal/abnormal. POC A HCO3 (test code = 1960-4) See_Comment H [Automated messa ge] The system which generated this result transmitted reference range: 22 - 26 mMol/L. The reference range was not used to interpret this result as normal/abnormal. POC A BE (test code = 1925-7) See_Comment H [Automated messa ge] The system which generated this result transmitted reference range: -2 - 2 mMol/L. The reference range was not used to interpret this result as normal/abnormal. POC A O2 Sat (calc) (test code = 2708-6) 94.4 % 95-100 L POC A Hgb Tot (test code = 90479-7) 12.9 g/dL 13.7-17.5 L POC A Hct (calc) (test code = 55212-5) 39 % 40.1-51.0 L POC A Na (test code = 28265-6) See_Comment L [Automated messa ge] The system which generated this result transmitted reference range: 135 - 145 mEq/L. The reference range was not used to interpret this result as normal/abnormal. POC A K (test code = 9075215) See_Comment H [Automated messa ge] The system which generated this result transmitted reference range: 3.5 - 5.1 mEq/L. The reference range was not used to interpret this result as normal/abnormal. POC Chloride (test code = 2043024) See_Comment [Automated messa ge] The system which generated this result transmitted reference range: 95 - 109 mEq/L. The reference range was not used to interpret this result as normal/abnormal. POC A Glu (test code = 2339-0) 115 mg/dL 70-99 H POC A LA (test code = 224) See_Comment [Automated messa VB Rags] The system which generated this result transmitted reference range: 0.5 - 2.2 mMol/L. The reference range was not used to interpret this result as normal/abnormal. POC A Ca Ion (test code = 75792-2) See_Comment [Automated messa VB Rags] The system which generated this result transmitted reference range: 1.05 - 1.25 mMol/L. The reference range was not used to interpret this result as normal/abnormal. POC A Ca Ion (7.4) (test code = 5203864345) 1.2 mmol/L 1.05-1.25 POC A Spon R (bpm) (test code = 2753915815) bpm POC A %FIO2 (test code = 4848045861) 40 % POC A BIPAP(I) (test code = 6069922304) cmH20 POC A BIPAP(E) (test code = 3539503474) cmH20 POC Performing Location (test code = 8933471892) [facility] Lab Interpretation (test code = 60556-7) Abnormal [facility] Xixuuue4844-14-03 02:42:31* Test Item Value Reference Range Interpretation Comme nts POC Glu (test code = 7110466182) 137 mg/dL 70-99 H POC Performing Location (michi t code = 4351887523) MICU Lab Interpretation (test cod e = 67263-2) Abnormal [facility] Nsshouc8906-25-56 02:20:04* Test Item Value Reference Range Interpretation Comme [facility] POC Glu (test code = 9123787148) 79 mg/dL 70-99 POC Performing Location (michi t code = 7820158571) MICU [facility] Zwkmxxo3043-92-30 00:11:48* Test Item Value Reference Range Interpretation Comme nts POC Glu (test code = 9761299499) 74 mg/dL 70-99 POC Glu Comment 1 (test code = 2759923584) Notified RN/MD POC Glu Comment 2 (test code = 9948870600) Cleaned Meter POC Performing Location (michi t code = 8852813687) [facility] Vwzakpq0636-79-90 18:55:22* Test Item Value Reference Range Interpretation Comme nts POC Glu (test code = 0956697644) 91 mg/dL 70-99 POC Glu Comment 1 (test code = 4268935775) Notified RN/MD POC Performing Location (michi t code = 7431811442) [facility] Ruzlvsl6891-40-83 16:46:18* Test Item Value Reference Range Interpretation Comme nts POC Glu (test code = 9485270413) 63 mg/dL 70-99 L POC Glu Comment 1 (test code = 5835212486) Notified RN/MD POC Performing Location (michi t code = 6943622977) [facility] Lab Interpretation (test cod e = 27093-3) Abnormal [facility] Kuehycb0370-81-80 12:25:03* Test Item Value Reference Range Interpretation Comme nts POC Glu (test code = 9240583348) 71 mg/dL 70-99 POC Glu Comment 1 (test code = 4610783729) Notified RN/MD POC Performing Location (michi t code = 8320415395) [facility] Arterial Blood Gas and Basic Azjuu6973-01-14 11:20:08* Test Item Value Reference Range Interpretation Comme nts POC A Temp (test code = 9314691646) DegC POC A Source (test code = 2755128133) ART POC A pH (test code = 2744-1) 7.35-7.45 L POC A PCO2 (test code = 2019-8) See_Comment HH [Automated messa ge] The system which generated this result transmitted reference range: 35 - 45 mmHg. The reference range was not used to interpret this result as normal/abnormal. POC A PO2 (test code = 2703-7) See_Comment [Automated messa ge] The system which generated this result transmitted reference range: 80 - 100 mmHg. The reference range was not used to interpret this result as normal/abnormal. POC A HCO3 (test code = 1960-4) See_Comment H [Automated messa ge] The system which generated this result transmitted reference range: 22 - 26 mMol/L. The reference range was not used to interpret this result as normal/abnormal. POC A BE (test code = 1925-7) See_Comment H [Automated messa ge] The system which generated this result transmitted reference range: -2 - 2 mMol/L. The reference range was not used to interpret this result as normal/abnormal. POC A O2 Sat (calc) (test code = 2708-6) 94.8 % 95-100 L POC A Hgb Tot (test code = 03962-7) 12.9 g/dL 13.7-17.5 L POC A Hct (calc) (test code = 57263-7) 39 % 40.1-51.0 L POC A Na (test code = 00792-2) See_Comment L [Automated messa ge] The system which generated this result transmitted reference range: 135 - 145 mEq/L. The reference range was not used to interpret this result as normal/abnormal. POC A K (test code = 4133139) See_Comment H [Automated messa ge] The system which generated this result transmitted reference range: 3.5 - 5.1 mEq/L. The reference range was not used to interpret this result as normal/abnormal. POC Chloride (test code = 9349230) See_Comment [Automated messa ge] The system which generated this result transmitted reference range: 95 - 109 mEq/L. The reference range was not used to interpret this result as normal/abnormal. POC A Glu (test code = 2339-0) 82 mg/dL 70-99 POC A LA (test code = 224) See_Comment [Automated messa ge] The system which generated this result transmitted reference range: 0.5 - 2.2 mMol/L. The reference range was not used to interpret this result as normal/abnormal. POC A Ca Ion (test code = 76757-5) See_Comment [Automated messa ge] The system which generated this result transmitted reference range: 1.05 - 1.25 mMol/L. The reference range was not used to interpret this result as normal/abnormal. POC A Ca Ion (7.4) (test code = 7323575828) 1.09 mmol/L 1.05-1.25 POC A Mode #1 (test code = 4147493019) BiPAP POC A %FIO2 (test code = 9345544045) 40 % POC Performing Location (test code = 8236646040) [facility] Lab Interpretation (test code = 44458-9) Abnormal [facility] [facility] Uyomgqs5190-60-17 08:49:16* Test Item Value Reference Range Interpretation Comme nts POC Glu (test code = 9408884780) 89 mg/dL 70-99 POC Glu Comment 1 (test code = 4185678960) Notified RN/MD POC Performing Location (michi t code = 1014244562) MICU [facility] Arterial Blood Gas and Basic Kceex7808-84-95 04:43:09* Test Item Value Reference Range Interpretation Comme nts POC A Temp (test code = 1952048857) DegC POC A Source (test code = 7785960212) ART POC A pH (test code = 2744-1) 7.35-7.45 L POC A PCO2 (test code = 2019-8) See_Comment HH [Automated messa ge] The system which generated this result transmitted reference range: 35 - 45 mmHg. The reference range was not used to interpret this result as normal/abnormal. POC A PO2 (test code = 2703-7) See_Comment [Automated messa ge] The system which generated this result transmitted reference range: 80 - 100 mmHg. The reference range was not used to interpret this result as normal/abnormal. POC A HCO3 (test code = 1960-4) See_Comment H [Automated messa ge] The system which generated this result transmitted reference range: 22 - 26 mMol/L. The reference range was not used to interpret this result as normal/abnormal. POC A BE (test code = 1925-7) See_Comment H [Automated messa ge] The system which generated this result transmitted reference range: -2 - 2 mMol/L. The reference range was not used to interpret this result as normal/abnormal. POC A O2 Sat (calc) (test code = 2708-6) 94 % 95-100 L POC A Hgb Tot (test code = 48470-7) 12.8 g/dL 13.7-17.5 L POC A Hct (calc) (test code = 53164-4) 38 % 40.1-51.0 L POC A Na (test code = 31815-9) See_Comment L [Automated messa ge] The system which generated this result transmitted reference range: 135 - 145 mEq/L. The reference range was not used to interpret this result as normal/abnormal. POC A K (test code = 3474585) See_Comment H [Automated messa ge] The system which generated this result transmitted reference range: 3.5 - 5.1 mEq/L. The reference range was not used to interpret this result as normal/abnormal. POC Chloride (test code = 4999553) See_Comment [Automated AppSurfera VB Rags] The system which generated this result transmitted reference range: 95 - 109 mEq/L. The reference range was not used to interpret this result as normal/abnormal. POC A Glu (test code = 2339-0) 96 mg/dL 70-99 POC A LA (test code = 224) See_Comment [Automated AppSurfer[employer] VB Rags] The system which generated this result transmitted reference range: 0.5 - 2.2 mMol/L. The reference range was not used to interpret this result as normal/abnormal. POC A Ca Ion (test code = 18998-1) See_Comment [Automated AppSurfera VB Rags] The system which generated this result transmitted reference range: 1.05 - 1.25 mMol/L. The reference range was not used to interpret this result as normal/abnormal. POC A Ca Ion (7.4) (test code = 5444419741) 1.1 mmol/L 1.05-1.25 POC A Mode #1 (test code = 6506741445) BiPAP POC A Mech R (bpm) (test code = 5175883341) bpm POC A %FIO2 (test code = 4898436712) 60 % POC A Itime(s) (test code = 4424368054) seconds POC Performing Location (test code = 2112740510) [facility] Lab Interpretation (test code = 53512-4) Abnormal [facility] Xamfvxl4529-16-49 04:24:39* Test Item Value Reference Range Interpretation Comme nts POC Glu (test code = 6713258619) 98 mg/dL 70-99 POC Glu Comment 1 (test code = 2837157810) Notified RN/MD POC Glu Comment 2 (test code = 2259826014) Cleaned Meter POC Performing Location (michi t code = 9082636134) MICU [facility] 12 lead (arrhythmia)2024-03-05 16:48:33* Test Item Value Reference Range Interpretation Comme nts Ventricular Rate (test code = 2142052658) BPM Atrial Rate (test code = 4246370864) BPM QRS Duration (test code = 0067455207) 94 ms QT/QTc (test code = 1998479682) 418 ms QTc Calculation (test code = 9130542572) 451 ms R-Garland (test code = 8227972555) degrees T-Garland (test code = 5421656275) degrees IMP (test code = IMP) PXN (test code = PXN) [facility] Zcjfevh2292-88-01 17:31:33* Test Item Value Reference Range Interpretation Comme nts POC Glu (test code = 7871937556) 107 mg/dL 70-99 H POC Glu Comment 1 (test code = 8261702352) Notified RN/MD POC Performing Location (michi t code = 2300569827) [facility] Lab Interpretation (test cod e = 54264-0) Abnormal [facility] Wskukyc7348-04-55 12:56:12* Test Item Value Reference Range Interpretation Comme nts POC Glu (test code = 6508714343) 123 mg/dL 70-99 H POC Glu Comment 1 (test code = 9164735383) Notified RN/MD POC Performing Location (michi t code = 4778845120) 7 [facility] Lab Interpretation (test cod e = 24250-4) Abnormal [facility] Nkzqvtm2308-86-35 06:43:31* Test Item Value Reference Range Interpretation Comme nts POC Glu (test code = 7706953701) 100 mg/dL 70-99 H POC Performing Location (michi t code = 0615607697) [facility] Lab Interpretation (test cod e = 81045-7) Abnormal [facility] Tmjytvc1534-22-07 06:16:20* Test Item Value Reference Range Interpretation Comme nts POC Glu (test code = 1240987476) 92 mg/dL 70-99 POC Glu Comment 1 (test code = 5293686608) Notified RN/MD POC Performing Location (michi t code = 7343155382) [facility] Bideggh0454-57-63 19:09:47* Test Item Value Reference Range Interpretation Comme nts POC Glu (test code = 2773690458) 135 mg/dL 70-99 H POC Glu Comment 1 (test code = 5997052523) Notified RN/MD POC Performing Location (michi t code = 1891180455) SICU Lab Interpretation (test cod e = 29929-4) Abnormal [facility] Yuaxoqk5753-91-20 12:39:04* Test Item Value Reference Range Interpretation Comme nts POC Glu (test code = 2602338498) 127 mg/dL 70-99 H POC Glu Comment 1 (test code = 6040637945) Notified RN/MD POC Performing Location (michi t code = 6401352376) SICU Lab Interpretation (test cod e = 82922-9) Abnormal [facility] Qypfezb7932-59-77 11:21:38* Test Item Value Reference Range Interpretation Comme nts POC Glu (test code = 0026463538) 101 mg/dL 70-99 H POC Performing Location (michi t code = 6743339968) SICU Lab Interpretation (test cod e = 63960-5) Abnormal [facility] Urcdqwi8299-79-48 21:22:02* Test Item Value Reference Range Interpretation Comme nts POC Glu (test code = 4330394063) 147 mg/dL 70-99 H POC Performing Location (michi t code = 5321604981) SICU Lab Interpretation (test cod e = 62741-8) Abnormal [facility] Zjczoyg5255-76-60 13:02:37* Test Item Value Reference Range Interpretation Comme nts POC Glu (test code = 9390466615) 98 mg/dL 70-99 POC Glu Comment 1 (test code = 1383333077) Notified RN/MD POC Performing Location (michi t code = 0603409489) SICU [facility] Arterial Blood Gas Lxlxd7724-55-83 12:10:39* Test Item Value Reference Range Interpretation Comme nts POC A Temp (test code = 6590700577) DegC POC A Source (test code = 3427502109) ART POC A pH (test code = 2744-1) 7.35-7.45 H POC A PCO2 (test code = 2019-8) See_Comment H [Automated messa ge] The system which generated this result transmitted reference range: 35 - 45 mmHg. The reference range was not used to interpret this result as normal/abnormal. POC A PO2 (test code = 2703-7) See_Comment L [Automated messa ge] The system which generated this result transmitted reference range: 80 - 100 mmHg. The reference range was not used to interpret this result as normal/abnormal. POC A HCO3 (test code = 1960-4) See_Comment H [Automated messa ge] The system which generated this result transmitted reference range: 22 - 26 mMol/L. The reference range was not used to interpret this result as normal/abnormal. POC A BE (test code = 1925-7) See_Comment H [Automated messa ge] The system which generated this result transmitted reference range: -2 - 2 mMol/L. The reference range was not used to interpret this result as normal/abnormal. POC A O2 Sat (calc) (test code = 2708-6) 93.1 % 95-100 L POC A %FIO2 (test code = 7672534877) 40 % POC A O2 Device #1 (test code = 4407632033) VAPO 20L POC Performing Location (test code = 5798463967) [facility] Lab Interpretation (test code = 21585-4) Abnormal [facility] Obshgnu2610-76-52 06:28:00* Test Item Value Reference Range Interpretation Comme [facility] POC Glu (test code = 9253777937) 107 mg/dL 70-99 H POC Performing Location (michi t code = 7123526335) SICU Lab Interpretation (test cod e = 93287-5) Abnormal [facility] Dzpogdm0256-37-51 23:56:49* Test Item Value Reference Range Interpretation Comme [facility] POC Glu (test code = 1217535845) 107 mg/dL 70-99 H POC Performing Location (michi t code = 5052967094) SICU Lab Interpretation (test cod e = 30967-9) Abnormal [facility] Nuhigqr9561-33-20 20:56:23* Test Item Value Reference Range Interpretation Comme [facility] POC Glu (test code = 6848429586) 107 mg/dL 70-99 H POC Performing Location (michi t code = 1120314840) SICU Lab Interpretation (test cod e = 07312-1) Abnormal [facility] Taovfik9194-57-14 08:15:02* Test Item Value Reference Range Interpretation Comme nts POC Glu (test code = 0718622240) 109 mg/dL 70-99 H POC Performing Location (michi t code = 0773755535) SICU Lab Interpretation (test cod e = 17473-6) Abnormal [facility] Tlvjskj9837-51-97 06:02:41* Test Item Value Reference Range Interpretation Comme nts POC Glu (test code = 0733698873) 97 mg/dL 70-99 POC Glu Comment 1 (test code = 0641198457) Notified RN/MD POC Performing Location (michi t code = 5067179794) [facility] Vbghtij0547-38-72 23:21:22* Test Item Value Reference Range Interpretation Comme nts POC Glu (test code = 5142640868) 91 mg/dL 70-99 POC Glu Comment 1 (test code = 1911747194) Notified RN/MD POC Performing Location (michi t code = 5911385916) [facility] Lljlxuh8194-30-64 17:56:43* Test Item Value Reference Range Interpretation Comme nts POC Glu (test code = 4742856782) 96 mg/dL 70-99 POC Performing Location (michi t code = 9308593372) [facility] Snflkui7576-56-51 06:35:47* Test Item Value Reference Range Interpretation Comme nts POC Glu (test code = 1350164444) 116 mg/dL 70-99 H POC Glu Comment 1 (test code = 7800470221) Notified RN/MD POC Performing Location (michi t code = 4199085591) SICU Lab Interpretation (test cod e = 95625-5) Abnormal [facility] Niyiwht5047-15-08 16:39:43* Test Item Value Reference Range Interpretation Comme nts POC Glu (test code = 1301171066) 106 mg/dL 70-99 H POC Performing Location (michi t code = 7154505894) SICU Lab Interpretation (test cod e = 57830-0) Abnormal [facility] Fdl6721-58-78 09:01:14* Test Item Value Reference Range Interpretation Comme nts Hold Specimen (test code = 293) Hold for add-ons. Auto resulted. [facility] Oeeji5942-91-63 09:01:14* Test Item Value Reference Range Interpretation Comme nts Hold Specimen (test code = 293) Hold for add-ons. Auto resulted. [facility] Ajsqwny7594-05-06 07:17:39* Test Item Value Reference Range Interpretation Comme nts POC Glu (test code = 1836227787) 115 mg/dL 70-99 H POC Glu Comment 1 (test code = 2912468319) Notified RN/MD POC Performing Location (michi t code = 3871821950) [facility] Lab Interpretation (test cod e = 32251-8) Abnormal [facility] Untyysi0118-52-34 16:58:53* Test Item Value Reference Range Interpretation Comme nts POC Glu (test code = 5223992884) 119 mg/dL 70-99 H POC Glu Comment 1 (test code = 3416268605) Notified RN/MD POC Performing Location (michi t code = 2203911827) [facility] Lab Interpretation (test cod e = 34931-8) Abnormal [facility] 12 ftny9005-45-82 14:09:34* Test Item Value Reference Range Interpretation Comme nts Ventricular Rate (test code = 9972457866) BPM Atrial Rate (test code = 4488641528) BPM QRS Duration (test code = 3173750064) 86 ms QT/QTc (test code = 5147390111) 304 ms QTc Calculation (test code = 9388973956) 445 ms R-Garland (test code = 9116111491) degrees T-Garland (test code = 5825441428) degrees IMP (test code = IMP) PXN (test code = PXN) [facility] bhbkecix7260-04-14 12:42:13* Test Item Value Reference Range Interpretation Comme nts LA Vol I (A4C) BSA (test code = 7010640128) 21.8 ml/m2 LVOT Vmax/AV Vmax (test code = 7188466193) 0.44 {ratio} Ao Root diam diastole (test code = 5290450783) 35 mm LVOT Vmean (test code = 2387502821) 0.44 m/s LV SV (A4C) (test code = 5990317339) 39.9 ml LV SI (A4C) (test code = 6004026318) 15.9 ml/m2 LVLs (A4C) (test code = 5008245258) 77 mm LVLd (A4C) (test code = 4992971258) 79.7 mm LV EDV A4C (test code = 6509496492) 94 mL LA area A4C (test code = 4287781580) 22.1 cm2 LV ESV A4C (test code = 5592717394) 54 mL MV max brendan (test code = 1378340419) 1.01 cm/s TR pk grad (test code = 0825960512) mmHg TAPSE (test code = 3255925174) 10 mm MV mn brendan (test code = 5904302588) 0.571 m/s LV est EF (test code = 1274910322) 46 % MV VTI (test code = 0768065003) 20.3 cm MV E pk brendan (test code = 8639076048) 0.92 m/s MV pk grad (test code = 4149487248) mmHg AV pk grad (test code = 1581728771) mmHg LV stroke vol (test code = 3726648840) 18 ml AV VTI (test code = 7527034217) 18.2 cm AV pk brendan (test code = 0170997885) 1.28 m/s LVOT VTI (test code = 8377302691) 8.1 cm LVOT pk brendan (test code = 0106664876) 0.57 m/s LVOT area (test code = 8830279450) 2.27 cm2 LVOT diam (test code = 4103803078) 17 mm MV DT (test code = 0188920965) 130 ms MV e' lateral brendan (test code = 1308494788) 8.38 cm/s PV pk grad (test code = 2221064294) mmHg MV area cont eq (test code = 8603090363) 0.9 cm2 MV mn grad (test code = 4809813232) mmHg LVOT pk grad (test code = 6131245399) mmHg AV mn grad (test code = 3446094776) mmHg MV E/e' septal (test code = 3310166982) TR pk brendan (test code = 5302157689) 2.53 m/s AV area pk brendan (test code = 5640625429) 1.01 cm2 AV area cont VTI (test code = 4920153556) 1.01 cm2 LVOT mn grad (test code = 8815315701) mmHg LV A4C EF (test code = 5157939262) 43 % AV mn brendan (test code = 5665126796) 0.85 m/s LVPWd (test code = 3883363500) 14 mm LA size (test code = 3452848417) 42 mm Fractional Shortening 2D (test code = 8170445657) 23 % LVIDs (test code = 4369691516) 40 mm IVSd (test code = 5600131753) 13 mm LVIDd (test code = 2338630262) 52 mm PV pk brendan (test code = 6541410597) 0.57 m/s MV E/e' lateral (test code = 2474602) MV e' septal brendan (test code = 7827686) 6.64 cm/s LV ESV 2D (test code = 0105700) 69.2 mL LV EDV 2D (test code = 8520386) 128 mL IVSd 2D (test code = 5979760) 13.250553244518377 cm BSA (test code = 9382269639) 2.7 m2 Radiology Study observation (narrative) (test code = 67106-2) ADD (test code = ADD) [facility] Consult Notes Date/Time Note Provider Source 2024-05-24 13:55:53 Associated Order(s): IP CONSULT TO NEPHROLOGY Images from the original note were not included. Nephrology Consult Note May 24, 2024 Renal Assessment: 1. Acute kidney injury secondary to permissive diuresis (cardiorenal syndrome). 2. Acute respiratory failure secondary to pulmonary edema, improved. 3. Acute on chronic systolic heart failure 4. Morbid obesity 5. Acute encephalopathy, improved Plan: 1. Urinary bladder scan to check for urinary retention 2. Agree to hold furosemide for now as blood pressure is relatively low 3. Send urine for urinalysis and protein creatinine ratio 4. Monitor electrolytes and replace accordingly 5. Monitor urine output Discussed with patient's daughter Referring Physician: Sher Murray DO Reason for consult: Acute kidney injury HPI: 68-year-old male with history of chronic systolic heart failure, A-fib, morbid obesity, obstructive sleep apnea who was admitted due to altered mental status and hypercapnic respiratory failure. Chest x-ray showed pulmonary edema. He was started on intravenous furosemide which afforded good diuretic response. Serum creatinine had increased to 1.5 mg/DL today hence renal consultation is requested. He had previous creatinine of 0.9 with a EGFR of 86 on 05/20/2024. Medications: Prior to Admission medications Medication Sig Start Date End Date Taking? Authorizing Provider amiodarone (Pacerone) 200 MG tablet Take 1 tablet by mouth 1 time each day. CHANGED BY MD ON 02/28/24 03/07/24 04/06/24 Al Maloney MD apixaban (Eliquis) 5 MG tablet Take 1 tablet by mouth in the morning and 1 tablet in the evening. 02/22/24 03/23/24 Gaudencio Adams MD digoxin (Lanoxin) 125 MCG tablet Take 1 tablet by mouth 1 time each day. 02/23/24 03/24/24 Gaudencio Adams MD furosemide (Lasix) 40 MG tablet Take 1 tablet by mouth in the morning and 1 tablet in the evening. 03/07/24 04/06/24 Al Maloney MD losartan (Cozaar) 25 MG tablet Take 25 mg by mouth 1 time each day. GENERIC EXTERNAL DATA PROVIDER metoprolol succinate XL (Toprol-XL) 100 MG 24 hr tablet Take 1 tablet by mouth 1 time each day. Do not crush or chew. 03/08/24 03/08/25 Al Maloney MD tamsulosin (Flomax) 0.4 MG 24 hr capsule Take 1 capsule by mouth 1 time each day. 02/23/24 Gaudencio Adams MD warfarin (Coumadin) 2.5 MG tablet Take 2.5 mg by mouth 1 time each day. 2.5mg daily Monday- Monday and 5mg daily for Monday and Monday. GENERIC EXTERNAL DATA PROVIDER PMH: No past medical history on file. PSH: No past surgical history on file. ROS: General : No weight loss Cardiovascular: No chest pain , has edema Pulmonary : No cough, no hemoptysis Gastrointestinal : No nausea, No vomiting, No diarrhea : No dysuria, No hematuria Neuro: No headache, no seizure episode Musculoskeletal: No new joint pain Family History: No family history on file. SOCIAL HISTORY: not a smoker. No h/o ETOH abuse. No h/o street drugs abuse. Social History Socioeconomic History Marital status: Never Spouse name: Not on file Number of children: Not on file Years of education: Not on file Highest education level: Not on file Occupational History Not on file Tobacco Use Smoking status: Never Smokeless tobacco: Not on file Vaping Use Vaping status: Never Used Substance and Sexual Activity Alcohol use: Not on file Drug use: Never Sexual activity: Not on file Other Topics Concern Not on file Social History Narrative Not on file Social Drivers of Health Financial Resource Strain: Not on file Food Insecurity: No Food Insecurity (05/17/2024) Hunger Vital Sign Worried About Running Out of Food in the Last Year: Never true Ran Out of Food in the Last Year: Never true Transportation Needs: No Transportation Needs (05/17/2024) PRAPARE - Transportation Lack of Transportation (Medical): No Lack of Transportation (Non-Medical): No Physical Activity: Not on file Stress: Not on file Social Connections: Not on file Intimate Partner Violence: Not At Risk (05/17/2024) Humiliation, Afraid, Rape, and Kick questionnaire Fear of Current or Ex-Partner: No Emotionally Abused: No Physically Abused: No Sexually Abused: No Housing Stability: Low Risk (05/17/2024) Housing Stability Vital Sign Unable to Pay for Housing in the Last Year: No Number of Times Moved in the Last Year: 0 Homeless in the Last Year: No ALLERGIES: No Known Allergies Exam: Blood pressure (!) 95/49, pulse 74, temperature 36.8 ?C (98.3 ?F), temperature source Oral, resp. rate 13, height 1.803 m (5' 11"), weight (!) 136 kg (300 lb 0.7 oz), SpO2 97%. Body mass index is 41.85 kg/m?. HEENT: TARIQ, anicteric sclera Neck: supple Chest/Lungs: bilateral air entry Heart: Regular rhythm Abdomen: soft, non tender Extremities: Chronically looking edema Patient Active Problem List Diagnosis Morbid obesity (HCC) BMI 40.0-44.9, adult (HCC) New onset atrial fibrillation (CMS/HCC) (HCC) Hypertension Acute hypercapnic respiratory failure (CMS/HCC) (HCC) Other heart failure Acute on chronic systolic (congestive) heart failure Acute hypoxic respiratory failure (HCC) Acute metabolic encephalopathy Data: reviewed. Lab Results Component Value Date WBC 7.04 05/24/2024 Hgb 14.0 05/24/2024 Hct 44.6 05/24/2024 MCV 98.7 (H) 05/24/2024 Plt Count 169 05/24/2024 Lab Results Component Value Date Calcium Lvl 8.6 05/24/2024 Sodium Lvl 133 (L) 05/24/2024 Potassium Lvl 3.8 05/24/2024 CO2 Lvl 34.9 (H) 05/24/2024 Chloride Lvl 94 (L) 05/24/2024 BUN 24 (H) 05/24/2024 Creatinine Lvl 1.51 (H) 05/24/2024 Lab Results Component Value Date ALT 19 05/24/2024 AST 37 05/24/2024 Alkaline Phosphatase 106 05/24/2024 Bilirubin Total 0.90 05/24/2024 LABORATORY (Reviewed): Results from last 7 days Lab Units 05/24/24 0356 05/23/24 0613 05/22/24 0457 WBC 10*3/uL 7.04 6.38 8.45 HEMOGLOBIN g/dL 14.0 15.7 14.2 HEMATOCRIT % 44.6 50.1 44.1 MCV fL 98.7* 99.6* 96.7 PLATELETS 10*3/uL 169 155* 194 Results from last 7 days Lab Units 05/24/24 1314 05/24/24 0849 05/24/24 0356 05/23/24 0855 05/23/24 0613 05/22/24 1646 05/22/24 0457 SODIUM mEq/L -- -- 133* -- 137 -- 135* POTASSIUM mEq/L -- -- 3.8 -- 3.8 -- 3.8 CHLORIDE mEq/L -- -- 94* -- 95* -- 93* CO2 mEq/L -- -- 34.9* -- 36.7* -- 34.1* BUN mg/dL -- -- 24* -- 18 -- 20 CREATININE mg/dL -- -- 1.51* -- 1.30 -- 1.11 EGFR mL/min/1.73m2 -- -- 50* -- 60* -- 73 CALCIUM mg/dL -- -- 8.6 -- 8.5 -- 9.3 PROTEIN TOTAL g/dL -- -- 8.5* -- 8.8* -- 8.1 BILIRUBIN TOTAL mg/dL -- -- 0.90 -- 1.30* -- 2.00* ALK PHOS U/L -- -- 106 -- 105 -- 112 ALT U/L -- -- 19 -- 15 -- 14 AST U/L -- -- 37 -- 34 -- 22 GLUCOSE mg/dL -- -- 116* -- 76 -- 74 POC GLUCOSE mg/dL 119* < > -- < > -- < > -- ALBUMIN g/dL -- -- 2.9* -- 3.2* -- 2.9* < > = values in this interval not displayed. A total of >35 minutes were spent in evaluation and management for patient today, exclusive of any procedures. Time spent included pre and post chart review, labs/imaging review, medication review, cut order hand, and houc-fv-zxvj time with the patient. Case was also discussed with primary and RN in coordination of care. Thank you for involving us in the care of this patient, we will continue to follow closely. Ron Gomez MD [facility] Office: [facility] 2024-05-20 11:50:09 Associated Order(s): IP CONSULT TO CARDIOLOGY Images from the original note were not included. CARDIOLOGY CONSULT NOTE 05/20/24 Name: Keyur Randall Sr. : 1955 Age: 68 y.o. Date of admission: 05/16/2024 Reason for Consult: Acute decompensation of chronic heart failure HPI: Keyur Randall Sr. is a 68 y.o. male with a history of HFrEF, A-fib on Coumadin, EtOH abuse, NIHARIKA/OHS, previously admitted for hypercapnic respiratory failure who presented 05/16/24 for AMS and visual/auditory hallucinations, AOx3 in ED but required increasing O2 support with VBG showing pCO2 94 thus started on BiPAP. Cardiology was consulted on hospital day #4 for assistance with acute decompensated heart failure, BNP 268 on day of admission. The patient has been receiving IV Lasix 40 mg TID. He has diuresed 12.8 L thus far in this admission. He is oriented to personal and place however is paranoid with granddaughter having to reassure him that background checks are being done. He remains on vapotherm 25L/55% FiO2, with BiPAP at night. Review of telemetry is atrial fibrillation with frequent pauses noted, none greater than 2.5 seconds. Of note, he [facility]24 with 80 mg IV Lasix dosing after having gained a reported 30 pounds in 4 weeks. HISTORY: PMH: HFrEF, A-fib, EtOH abuse, NIHARIKA/OHS PSH: No past surgical history on file. FH: No family history on file. SH: reports that he has never smoked. He does not have any smokeless tobacco history on file. He reports that he does not use drugs. No history on file for alcohol use. ALL: No Known Allergies REVIEW OF SYSTEMS: ROS: unable to obtain due to patient condition HOME MEDICATIONS: Prior to Admission medications Medication Sig Start Date End Date Taking? Authorizing Provider amiodarone (Pacerone) 200 MG tablet Take 1 tablet by mouth 1 time each day. CHANGED BY ON 02/28/24 03/07/24 04/06/24 Al Maloney MD apixaban (Eliquis) 5 MG tablet Take 1 tablet by mouth in the morning and 1 tablet in the evening. 02/22/24 03/23/24 Gaudencio Adams MD digoxin (Lanoxin) 125 MCG tablet Take 1 tablet by mouth 1 time each day. 02/23/24 03/24/24 Gaudencio Adams MD furosemide (Lasix) 40 MG tablet Take 1 tablet by mouth in the morning and 1 tablet in the evening. 03/07/24 04/06/24 Al Maloney MD losartan (Cozaar) 25 MG tablet Take 25 mg by mouth 1 time each day. GENERIC EXTERNAL DATA PROVIDER metoprolol succinate XL (Toprol-XL) 100 MG 24 hr tablet Take 1 tablet by mouth 1 time each day. Do not crush or chew. 03/08/24 03/08/25 Al Maloney MD tamsulosin (Flomax) 0.4 MG 24 hr capsule Take 1 capsule by mouth 1 time each day. 02/23/24 Gaudencio Adams MD warfarin (Coumadin) 2.5 MG tablet Take 2.5 mg by mouth 1 time each day. 2.5mg daily Monday- Monday and 5mg daily for Monday and Monday. GENERIC EXTERNAL DATA PROVIDER PHYSICAL EXAM: Vitals: 05/20/24 1000 05/20/24 1029 05/20/24 1047 05/20/24 1100 BP: 126/62 Pulse: 54 71 83 Resp: 05 02 (!) 25 Temp: 36.7 ?C (98 ?F) SpO2: 92% 99% 93% Intake/Output Summary (Last 24 hours) at 05/20/2024 1150 Last data filed at 05/20/2024 0500 Gross per 24 hour Intake 200.9 ml Output 5300 ml Net -5099.1 ml GEN: Alert, awake, oriented x3 HEENT: Atraumatic, PERRL, EOMI, moist mucous membranes Heart: irregularly irregular , S1 S2 No Murmur Pulses: Pulses: bilateral radial and DP 2+ Lungs: Breath sounds clear to auscultation, no use of accessory muscles, no crackles or wheezes GI: Soft + BS, abdomen not distended or tender EXT: + bilateral lower extremity and trunk edema SKIN: no rash or petechie LABS: Results from last 7 days Lab Units 05/20/24 1133 05/20/24 0757 05/20/24 0338 05/19/24 1951 05/19/24 0833 05/19/24 0410 05/18/24 0741 05/18/24 0403 05/18/24 0214 05/18/24 0044 05/17/24 0846 05/17/24 0444 05/17/24 0216 05/16/24 1833 WBC 10*3/uL -- -- 5.84 -- -- 6.31 -- -- -- 7.91 -- -- -- 7.88 HEMOGLOBIN g/dL -- -- 13.8 -- -- 12.4 -- -- -- 10.8* -- -- -- 13.0 POC HEMATOCRIT, ARTERIAL (CALC) % -- -- -- -- -- -- -- 39.0* -- -- < > -- < > -- HEMATOCRIT % -- -- 43.6 -- -- 40.4 -- -- -- 36.2* -- -- -- 42.8 PLATELETS 10*3/uL -- -- 151* -- -- 156* -- -- -- 133* -- -- -- 162 INR -- -- -- -- -- 2.28* -- -- -- -- -- 2.13* -- -- PTT Seconds -- -- -- -- -- -- -- -- -- -- -- 35.3 -- -- MAGNESIUM mg/dL -- -- 2.29 2.46 -- 1.94 -- -- -- 1.59* < > -- -- -- POC SODIUM, ARTERIAL mEq/L -- -- -- -- -- -- -- 130* -- -- < > -- < > -- SODIUM mEq/L -- -- 134* 135* -- 139 -- -- -- 146* -- -- -- 137 POC POTASSIUM, ARTERIAL mEq/L -- -- -- -- -- -- -- 5.2* -- -- < > -- < > -- POTASSIUM mEq/L -- -- 4.3 4.4 -- 4.3 -- -- -- 3.2* -- -- -- 5.0* POC CHLORIDE mEq/L -- -- -- -- -- -- -- 98 -- -- < > -- < > -- CHLORIDE mEq/L -- -- 90* 92* -- 100 -- -- -- 116* -- -- -- 98 CO2 mEq/L -- -- 39.7* >40.0* -- 33.7* -- -- -- 25.6 -- -- -- 33.9* BUN mg/dL -- -- 17 18 -- 29* -- -- -- 23 -- -- -- 37* CREATININE mg/dL -- -- 0.97 0.99 -- 0.94 -- -- -- 0.88 -- -- -- 1.89* EGFR mL/min/1.73m2 -- -- 86 83 -- 89 -- -- -- 94 -- -- -- 38* POC GLUCOSE, ARTERIAL mg/dL -- -- -- -- -- -- -- 115* -- -- < > -- < > -- GLUCOSE mg/dL -- -- 109* 107* -- 90 -- -- -- 50* -- -- -- 96 POC GLUCOSE mg/dL 96 < > -- -- < > -- < > -- < > -- < > -- < > -- CALCIUM mg/dL -- -- 8.6 8.3 -- 7.0* -- -- -- 4.5* -- -- -- 8.2* PHOSPHORUS mg/dL -- -- 2.8 -- -- 2.9 -- -- -- 2.4 -- -- -- -- ALK PHOS U/L -- -- -- -- -- -- -- -- -- -- -- -- -- 114 BILIRUBIN TOTAL mg/dL -- -- -- -- -- -- -- -- -- -- -- -- -- 1.60* BILIRUBIN DIRECT mg/dL -- -- -- -- -- -- -- -- -- -- -- -- -- 0.7* PROTEIN TOTAL g/dL -- -- -- -- -- -- -- -- -- -- -- -- -- 8.4* ALT U/L -- -- -- -- -- -- -- -- -- -- -- -- -- 11 AST U/L -- -- -- -- -- -- -- -- -- -- -- -- -- 19 < > = values in this interval not displayed. Lab Results Component Value Date CK Total 119 02/14/2024 HS Troponin I <3 05/16/2024 Natriuretic Peptide B Date Value Ref Range Status 05/16/2024 268 (H) 0 - 100 pg/mL Final Comment: Elevated results are in line with increasing severity of congestive heart failure. Minor elevations between 100 and 300 may be seen with Myocardial Ischemia, Sodium retaining drugs, and compensated/treated heart failure. INPATIENT MEDICATIONS: Scheduled Meds: amiodarone, 200 mg, Oral, Daily cefTRIAXone (Rocephin) 2 g in sodium chloride 0.9 % 100 mL IVPB-MB+, 2 g, Intravenous, q24h folic acid, 1 mg, Oral, Daily furosemide, 40 mg, Intravenous, q8h metoprolol tartrate, 50 mg, Oral, q12h GREG multivitamin, 1 tablet, Oral, Daily sodium chloride, 10 mL, Intravenous, q12h GREG thiamine, 100 mg, Oral, Daily CARDIAC STUDIES: Encounter Date: 05/16/24 ECG 12 lead Result Value Ventricular Rate 75 Atrial Rate 234 QRS Duration 104 QT/QTc 394 QTc Calculation 439 R-Garland 91 T-Garland 25 Impression ATRIAL FIBRILLATION RIGHTWARD AXIS ABNORMAL ECG Confirmed by Virgilio Tello ([id number]) on 05/20/2024 8:23:32 AM Transthoracic echo (TTE) complete 02/15/2024 Interpretation Summary Left Ventricle: Left ventricle size is normal. Findings consistent with mild concentric hypertrophy. Reduced systolic function with an estimated EF of 40 - 45%. Right Ventricle: Right ventricle is moderately dilated. Low normal systolic function in the right ventricle. Left Atrium: Left atrium is mildly dilated. Aortic Valve: Aortic valve is trileaflet. Moderately thickened leaflets in the aortic valve. Moderately calcified leaflets in the aortic valve. Moderate to severe aortic stenosis present. Mitral Valve: Mildly thickened leaflets in the mitral valve. Moderate mitral regurgitation present. Tricuspid Valve: Mild tricuspid regurgitation present. The estimated right ventricular systolic pressure, based on a presumed right atrial pressure of 10 mmHg, is 36 mmHg. Mild pulmonary hypertension present. No pericardial effusion present. Transthoracic echo (TTE) complete 03/01/2024 1. Technically Difficult Suboptimal Study. 2. Mild concentric left ventricular hypertrophy. 3. Unable to evaluate accurately left ventricular systolic function due to poor acoustic echo windows but appears to be within normal limits. 4. Mildly dilated left atrium. 5. The aortic valve leaflets are mildly thickened and calcified. 6. Mild aortic valve stenosis. 7. Mild tricuspid regurgitation. 8. Systolic pulmonary artery pressure is estimated to be 55 to 60 mmHg. 9. Estimated right atrial pressure is 11 to 15 mmHg. 10. Suggest limited 2D-echocardiogram with ultrasound-enhancing agents (e.g. Definity) for further evaluation if clinically indicated. IMAGES/STUDIES: Encounter Date: 05/16/24 XR chest 1 view Narrative EXAM: Chest x-ray, 1 view(s). CLINICAL HX: intubated . Age: 68 years. Gender: Male. TECHNIQUE: As above. Facility: [facility]. COMPARISON: Chest x-ray: May 16, 2024. Impression 1. Support apparatus: None. 2. Enlarged cardiac silhouette with worsened pulmonary edema. 3. No pneumothorax. Electronically signed by: Kirk Barker MD 05/18/2024 05:17 AM CDT ASSESSMENT AND PLAN: Patient Active Problem List Diagnosis Morbid obesity (HCC) BMI 40.0-44.9, adult (HCC) New onset atrial fibrillation (CMS/HCC) (HCC) Hypertension Acute hypercapnic respiratory failure (CMS/HCC) (HCC) Other heart failure (HCC) Acute on chronic systolic (congestive) heart failure (HCC) Acute hypoxic respiratory failure (HCC) Acute metabolic encephalopathy HPI: 68 yo male HFrEF, A-fib on Coumadin, EtOH abuse, NIHARIKA/OHS, previously admitted for hypercapnic respiratory failure [facility] Armhole Raiser Lockstitch: Dr. 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 EF 40-45% by TTE in 01/2026 GDMT: - BB: Metoprolol tartrate 25 mg Q8 hours, lowered dose secondary to frequent pauses - ARB: Losartan 25 mg daily - Diuresis: furosemide 40 mg Q8 hours/ Diamox 250 mg IV once > Strict I&O and daily weights > Monitor blood pressure / telemetry > Monitor electrolytes and replete > Keep Potassium > 4, Magnesium > 2 - Repeat echocardiogram Atrial fibrillation, longstanding persistent: Rate is currently controlled, but with pauses - Rate control: Metoprolol tartrate 25 mg Q8 hours, lowered dose secondary to frequent pauses - Rhythm control: Amiodarone 100 mg daily Hypercoagulable state [id number] score - 4 - Anticoagulation: Lovenox 1 mg/kg subcutaneous Q12 Alcoholism Went into withdrawals during hospitalization in 01/2024 at Pre-DM Dietary changes and weight loss Attending Addendum: The patient was seen in collaboration with the Nurse Practitioner, Jerrica Bonner. I have evaluated the patient, reviewed the history, radiographic imaging, and diagnostic testing. I also have examined and evaluated the patient and agree with the notes and findings of the Nurse Practitioner. This includes [id number] examination and evaluation, reviewing external records, educating the patient, interpreting and ordering tests / medicines / procedures, coordinating care with other providers, and doing a post-visit chart review. Diamox today due to respiratory alkalosis. Adjust metoprolol as he is bradycardic. HE is not a candidate for rhythm control/cardioversion due to concern for compliance with anticoagulation outpatient. Lovenox while in hospital. Urbano Redd MD [facility] Cardiovascular Disease [facility] 2024-05-17 11:27:52 Spiritual Care Subjective Patient unavailable and unaccompanied at time of wharf builder visit. Roller Skates Assembler performed chart review and participated in rounds for patient. Appellate Court Clerk will attempt visit again as able. Please call [phone] for immediate support. Reason For Visit Care Recipient: Patient not available Reason for Visit: Admission request Interventions Collaboration Interventions: Coordinated with interdisciplinary team, Clarified information from treatment team [facility] 2024-03-05 10:34:24 Associated Order(s): IP CONSULT TO CARDIOLOGY Images from the original note were not included. CARDIOLOGY CONSULT NOTE 03/05/24 Name: Keyur Randall Sr. : 1955 Age: 68 y.o. Date of admission: 03/04/2024 Reason for Consult: CHF HPI: Keyur Randall Sr. is a 68 y.o. male with a history of atrial fibrillation, heart failure, hypertension, moderate to severe aortic stenosis who came to this facility yesterday for shortness of breath. His daughter states that he has been staying at her house since his discharge from this facility 02/22/24, during which he was noted with new diagnosis of Afib and systolic heart failure. He has been sleeping on the couch, uses 2 pillows. His daughter notes loud snoring and "apnea" periods. His ambulation is restricted to walking from couch to bathroom. His daughter states that over the weekend she noticed that he was sleeping a lot. He has been eating mainly foods prepared at home, and also potato chips. He does not weigh himself daily, but has noted a weight increase. Documented weight on previous discharge was 289 lbs, 309 lbs was documented yesterday. BNP is 248 on admission. CXR is with pulmonary edema and left pleural effusion. He is seen lying in bed with a slight incline. He is using supplemental oxygen at 2 LNC. Review of telemetry is atrial fibrillation. He denies chest pain and palpitations. HISTORY: PMH: atrial fibrillation, heart failure, hypertension, moderate to severe aortic stenosis PSH: History reviewed. No pertinent surgical history. FH: No family history on file. SH: reports that he has never smoked. He does not have any smokeless tobacco history on file. He reports that he does not use drugs. No history on file for alcohol use. ALL: No Known Allergies REVIEW OF SYSTEMS: Cardiovascular: Exertional angina - No, Palpitations - No, Racing heart - No, Orthopnea - No, Pulmonary: DAO - yes, Wheezing - yes, Hemoptysis - No, PND - yes Vascular: Claudication - No, Edema - No. Musculoskeletal: Pain in hands or feet - No Neuro: Dizziness - No, Syncope - No GI: Blood in GI system - No, Indigestion - No Throat/Neck: Trouble swallowing - No Constitutional: Fever - No, Weight gain - yes Heme/Skin: Easy Bruising of skin - No, Recent rash - No Psychiatric: Anxiety episodes - No ROS: The pertinent positives and negatives are noted in the HPI. All other systems are negative. HOME MEDICATIONS: Prior to Admission medications Medication Sig Start Date End Date Taking? Authorizing Provider amiodarone (Pacerone) 200 MG tablet Take 2 tablets by mouth 1 time each day for 14 days. Patient taking differently: Take 200 mg by mouth 1 time each day. CHANGED BY ON 02/28/24 02/22/24 03/07/24 Yes Gaudencio Adams MD apixaban (Eliquis) 5 MG tablet Take 1 tablet by mouth in the morning and 1 tablet in the evening. 1/2/25 2/1/25 Yes Gaudencio Adams MD digoxin (Lanoxin) 125 MCG tablet Take 1 tablet by mouth 1 time each day. 02/23/24 03/24/24 Yes Gaudencio Adams MD folic acid (Folvite) 1 MG tablet Take 1 tablet by mouth 1 time each day for 7 days. 02/23/24 03/23/24 Yes Gaudencio Adams MD furosemide (Lasix) 20 MG tablet Take 1 tablet by mouth in the morning and 1 tablet in the evening. 02/22/24 03/23/24 Yes Gaudencio Adams MD metoprolol tartrate (Lopressor) 25 MG tablet Take 3 tablets by mouth in the morning and 3 tablets before bedtime. 02/22/24 03/23/24 Yes Gaudencio Adams MD tamsulosin (Flomax) 0.4 MG 24 hr capsule Take 1 capsule by mouth 1 time each day. 02/23/24 Yes Gaudencio Adams MD thiamine (Vitamin B-1) 100 MG tablet Take 1 tablet by mouth 1 time each day for 7 days. Do not start before February 23, 2024. 02/23/24 03/04/24 Yes Gaudencio Adams MD PHYSICAL EXAM: Vitals: 03/05/24 0726 03/05/24 0726 03/05/24 0726 03/05/24 0736 BP: 133/77 Pulse: 85 99 95 Resp: 18 19 18 Temp: SpO2: 93% 94% 95% Intake/Output Summary (Last 24 hours) at 03/05/2024 1034 Last data filed at 03/05/2024 0500 Gross per 24 hour Intake -- Output 1400 ml Net -1400 ml GEN: Alert, awake, comfortable HEENT: Atraumatic, PERRL, EOMI, moist mucous membranes Heart: irregularly irregular S1 S2 No Murmur Pulses: Pulses: bilateral radial and DP 2+ Lungs: Breath sounds clear to auscultation, no use of accessory muscles, no crackles or wheezes GI: Soft + BS, abdomen not distended or tender EXT: no clubbing, cyanosis or edema SKIN: no rash or petechie LABS: Results from last 7 days Lab Units 03/05/24 0456 03/04/24 1511 WBC 10*3/uL 5.69 6.52 HEMOGLOBIN g/dL 14.1 13.8 HEMATOCRIT % 43.3 44.0 PLATELETS 10*3/uL 203 204 MAGNESIUM mg/dL 2.24 -- SODIUM mEq/L 135* 135* POTASSIUM mEq/L 4.5 4.6* CHLORIDE mEq/L 92* 93* CO2 mEq/L 39.7* 39.3* BUN mg/dL 15 12 CREATININE mg/dL 0.84 0.73 EGFR mL/min/1.73m2 96 100 GLUCOSE mg/dL 119* 93 CALCIUM mg/dL 8.6 8.1* PHOSPHORUS mg/dL 4.4 -- ALK PHOS U/L 111 -- BILIRUBIN TOTAL mg/dL 0.80 -- PROTEIN TOTAL g/dL 7.1 -- ALT U/L 24 -- AST U/L 23 -- Lab Results Component Value Date CK Total 119 02/14/2024 HS Troponin I 5 03/04/2024 Natriuretic Peptide B Date Value Ref Range Status 03/04/2024 248 (H) 0 - 100 pg/mL Final Comment: Elevated results are in line with increasing severity of congestive heart failure. Minor elevations between 100 and 300 may be seen with Myocardial Ischemia, Sodium retaining drugs, and compensated/treated heart failure. INPATIENT MEDICATIONS: Scheduled Meds: Current Facility-Administered Medications Medication Dose Route Frequency Provider Last Rate Last Admin acetaminophen (Tylenol) tablet 650 mg 650 mg Oral q6h PRN Al Maloney MD bisacodyl (Dulcolax) suppository 10 mg 10 mg Rectal Daily PRN Al Maloney MD dextromethorphan-guaiFENesin (Robitussin-DM) 10-100 MG/5ML liquid 5 mL 5 mL Oral q4h PRN Al Maloney MD furosemide (Lasix) injection 40 mg 40 mg Intravenous q12h Al Maloney MD 40 mg at 03/05/24 0623 ipratropium (Atrovent) 0.02 % nebulizer solution 0.5 mg 0.5 mg Nebulization q6h Al Maloney MD 0.5 mg at 03/05/24 0726 labetalol injection 10 mg 10 mg Intravenous q6h PRN Al Maloney MD melatonin tablet 3 mg 3 mg Oral Nightly PRN Al Maloney MD metoprolol succinate XL (Toprol-XL) 24 hr tablet 100 mg 100 mg Oral Daily Al Maloney MD 100 mg at 03/05/24 0813 morphine PF injection 2 mg 2 mg Intravenous q4h PRN Al Maloney MD ondansetron (Zofran) injection 4 mg 4 mg Intravenous q6h PRN Al Maloney MD polyethylene glycol (PEG) 3350 (Miralax) packet 17 g 17 g Oral Daily PRN Al Maloney MD traMADol (Ultram) tablet 50 mg 50 mg Oral q6h PRN Al Maloney MD Continuous Infusions: PRN Meds: PRN medications: acetaminophen, bisacodyl, dextromethorphan-guaiFENesin, labetalol, melatonin, morphine, ondansetron, polyethylene glycol (PEG) 3350, traMADol CARDIAC STUDIES: Encounter Date: 03/04/24 ECG 12 lead (arrhythmia) Result Value Ventricular Rate 70 Atrial Rate 357 QRS Duration 94 QT/QTc 418 QTc Calculation 451 R-Garland 67 T-Garland 61 Impression ATRIAL FIBRILLATION ABNORMAL ECG Transthoracic echo (TTE) complete 02/15/2024 Interpretation Summary Left Ventricle: Left ventricle size is normal. Findings consistent with mild concentric hypertrophy. Reduced systolic function with an estimated EF of 40 - 45%. Right Ventricle: Right ventricle is moderately dilated. Low normal systolic function in the right ventricle. Left Atrium: Left atrium is mildly dilated. Aortic Valve: Aortic valve is trileaflet. Moderately thickened leaflets in the aortic valve. Moderately calcified leaflets in the aortic valve. Moderate to severe aortic stenosis present. Mitral Valve: Mildly thickened leaflets in the mitral valve. Moderate mitral regurgitation present. Tricuspid Valve: Mild tricuspid regurgitation present. The estimated right ventricular systolic pressure, based on a presumed right atrial pressure of 10 mmHg, is 36 mmHg. Mild pulmonary hypertension present. No pericardial effusion present. TTE [facility] 03/02/24: 1. Technically Difficult Suboptimal Study. 2. Mild concentric left ventricular hypertrophy. 3. Unable to evaluate accurately left ventricular systolic function due to poor acoustic echo windows but appears to be within normal limits. 4. Mildly dilated left atrium. 5. The aortic valve leaflets are mildly thickened and calcified. 6. Mild aortic valve stenosis. 7. Mild tricuspid regurgitation. 8. Systolic pulmonary artery pressure is estimated to be 55 to 60 mmHg. 9. Estimated right atrial pressure is 11 to 15 mmHg. 10. Suggest limited 2D-echocardiogram with ultrasound-enhancing agents (e.g. Definity) for further evaluation if clinically indicated. ASSESSMENT AND PLAN: Patient Active Problem List Diagnosis Morbid obesity (HCC) BMI 40.0-44.9, adult (HCC) New onset atrial fibrillation (CMS/HCC) (HCC) Hypertension Other heart failure (HCC) Acute on chronic systolic (congestive) heart failure (HCC) Acute hypoxic respiratory failure (HCC) HPI: 68 y.o. male with a history of atrial fibrillation, heart failure, hypertension, moderate to severe aortic stenosis [facility] Armhole Raiser Lockstitch: Dr. 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 EF 40-45% by TTE in 01/2026 - GDMT: metoprolol XL 100mg, losartan 25mg - Diuresis: Lasix infusion 5 mg/mL - Increase GDMT as tolerated - Low sodium diet / strict I&O / daily weights Moderate-severe aortic stenosis Per echo 02/15/24 Atrial fibrillation Rate is currently controlled - Rate control: Toprol XL 100 mg daily - Rhythm control: Amiodarone 200 mg daily, Digoxin Hypercoagulable state [id number] score - 4 - Anticoagulation: Eliquis 5 mg Q12 Alcoholism Went into withdrawals during hospitalization in 01/2024 Counseled on abstinence May need long half life benzos like valium while inpatient Hypertension Well controlled on Toprol, losartan OM POLISHER [facility] 2024-03-05 10:00:00 Spiritual Care Subjective Met Keyur, the patient and his daughter at bedside. Provided MPOA form and information. They wanted to wait a bit before completing the document. Provided Appellate Court Clerk education. Will follow up as needed. Please call [phone] for support. HOSPITAL Pastoral Care [facility] 2024-02-22 13:36:58 Spiritual Care Subjective Pt accompanied by family. Pt requested prayer which was provided at bedside. OM POLISHER [facility] 2024-02-20 17:15:30 Spiritual Care Subjective Reason For Visit Care Recipient: Patient not available Time spent: Other (Comment) (5) Reason for Visit: Referral from (Comment) Referral From: Nurse Interventions Relationship Building Interventions: Listened with empathy Plan Follow-up: Follow PRN OM POLISHER [facility] 2024-02-15 08:33:58 Images from the original note were not included. [facility] Cardiology [facility] [address] [place] [address] [phone] Initial Cardiology Consult Note PATIENT: Keyur Randall Sr. MR NO: [id number] DATE OF : 1955 Visit Type: Inpatient Cardiology Consult Chief Complaint Patient presents with Shortness of Breath Pt here for c/c of shortness of breath x5 days that worsened this morning and chest pain with breathing. Pt stated that he has congestion but is not able to cough it up. Denies any fevers. No pmhx. Chest Pain Referring physician: Dr. Hi Hill MD Subjective Mr. Keyur Randall Sr. is a 68 y.o. year old man who presented here through the emergency room, with progressive lower extremity edema and shortness of breath and was found to be in atrial fibrillation with rapid ventricular response. As I walk in the room, he is lying more or less flat in the bed with nasal cannula oxygen and appears to be mildly short of breath. He denies any chest pain and tells me he has no history of cardiovascular issues, although it appears that he is probably at least at some level hypertensive. Past Medical History Per HPI, otherwise negative. Allergies No Known Allergies Medications: Current Facility-Administered Medications Medication Dose Route Frequency Provider Last Rate Last Admin amiodarone (Nexterone) 1.8 mg/mL infusion 1 mg/min Intravenous Continuous Tim Tarango MD 33.3 mL/hr at 02/15/24 0830 1 mg/min at 02/15/24 0830 dextrose 50 % solution 12.5 g 12.5 g Intravenous PRN Samm Rivera MD dextrose 50 % solution 25 g 25 g Intravenous PRN Samm Rivera MD furosemide (Lasix) injection 40 mg 40 mg Intravenous BID Samm Rivera MD 40 mg at 02/15/24 0820 glucagon injection 1 mg 1 mg Intramuscular PRN Samm Rivera MD metoprolol tartrate (Lopressor) tablet 25 mg 25 mg Oral q8h GREG Tim Tarango MD 25 mg at 02/15/24 0820 ondansetron (Zofran) injection 4 mg 4 mg Intravenous q6h PRN Samm Rivera MD sennosides (Senokot) tablet 17.2 mg 2 tablet Oral Nightly PRN Samm Rivera MD sodium chloride (NS) 0.9 % flush 10 mL 10 mL Intravenous PRN Samm Rivera MD Social History Socioeconomic History Marital status: Never Spouse name: Not on file Number of children: Not on file Years of education: Not on file Highest education level: Not on file Occupational History Not on file Tobacco Use Smoking status: Never Smokeless tobacco: Not on file Substance and Sexual Activity Alcohol use: Not on file Drug use: Not on file Sexual activity: Not on file Other Topics Concern Not on file Social History Narrative Not on file Social Drivers of Health Financial Resource Strain: Not on file Food Insecurity: No Food Insecurity (02/15/2024) Hunger Vital Sign Worried About Running Out of Food in the Last Year: Never true Ran Out of Food in the Last Year: Never true Transportation Needs: No Transportation Needs (02/15/2024) PRAPARE - Transportation Lack of Transportation (Medical): No Lack of Transportation (Non-Medical): No Physical Activity: Not on file Stress: Not on file Social Connections: Not on file Intimate Partner Violence: Not At Risk (02/15/2024) Humiliation, Afraid, Rape, and Kick questionnaire Fear of Current or Ex-Partner: No Emotionally Abused: No Physically Abused: No Sexually Abused: No Housing Stability: Unknown (02/15/2024) Housing Stability Vital Sign Unable to Pay for Housing in the Last Year: No Number of Times Moved in the Last Year: Not on file Homeless in the Last Year: No Family History: Noncontributory to the history of present illness ROS Pertinent positives noted in the HPI. All other systems were reviewed and were negative on a 12-point review of systems. OBJECTIVE Vitals Vitals: 02/15/24 0427 02/15/24 0809 02/15/24 0809 02/15/24 0811 BP: 128/80 116/75 BP Location: Left arm Patient Position: Lying Pulse: 89 75 Resp: (!) 23 Temp: 36.3 ?C (97.4 ?F) TempSrc: Oral Oral SpO2: 100% 97% Weight: 136 kg (300 lb) Height: 1.803 m (5' 10.98") Exam BP 116/75 | Pulse 75 | Temp 36.3 ?C (97.4 ?F) | Resp (!) 23 | Ht 1.803 m (5' 10.98") | Wt 136 kg (300 lb) | BMI 41.86 kg/m? General: Alert and oriented, No acute distress Eyes: Pupils are equal, round and reactive to light, EOMI HENT: normal hearing Respiratory: Lungs are clear to auscultation Cardiovascular exam: Irregularly irregular and tachycardic. Gastrointestinal: Soft, non-tender, normal bowel sounds. Musculoskeletal: Normal range of motion, no deformity Integumentary: Warm, no visible rashes, lesions, or nodules Vascular/Lymphatics: Diminished bilateral lower extremity distal pulses, 2+ bilateral lower extremity edema. Neurologic: Alert, Oriented, No focal deficits Diagnostic Results Recent Labs: Chemistries and Metabolic Panel Recent Labs 02/14/242034 NA 135* K 4.2 CO2 33.3* CL 96* CALCIUM 8.9 BUN 13 CREATININE 1.00 CBC Results from last 7 days Lab Units 02/14/242034 HEMOGLOBIN g/dL 15.8 HEMATOCRIT % 49.9 WBC 10*3/uL 9.51 PLATELETS 10*3/uL 164 Cardiac Labs: Recent Labs 02/14/24203402/14/24 2146 CKTOTAL 119 -- TROPONINI 8 2 | 10 BNP 257* -- Coags: No results for input(s): "INR", "PT", "PTT" in the last 72 hours. Lab Results Component Value Date Sodium Lvl 135 (L) 02/14/2024 Potassium Lvl 4.2 02/14/2024 Chloride Lvl 96 (L) 02/14/2024 CO2 Lvl 33.3 (H) 02/14/2024 Lab Results Component Value Date Creatinine Lvl 1.00 02/14/2024 Estimated Creatinine Clearance: 101 mL/min (by C-G formula based on SCr of 1 mg/dL). No results found for: "ALT", "AST", "ALKPHOS", "BILITOT" No results found for: "CHOL", "HDL", "LDLCALC", "TRIG" Lab Results Component Value Date HS Troponin I 1 Hour 10 02/14/2024 HS Troponin I 0 to 1 Hour Delta 2 02/14/2024 HS Troponin I Baseline 8 02/14/2024 EKG: Atrial fibrillation with rapid ventricular response. Telemetry: Atrial fibrillation with rapid ventricular response. I have personally review imaging, labs and other provider notes for today. Assessment: New onset of atrial fibrillation with rapid ventricular response. Morbid obesity Likely obstructive sleep apnea Acute diastolic congestive heart failure PLAN Mr. Randall is a 68-year-old man with morbid obesity and new onset of atrial fibrillation as far as we know, whose heart rate is not very well-controlled at all. I will start him on amiodarone as well as metoprolol and we will also start him on enoxaparin for protection against cerebrovascular accident. Once his heart rate has slowed down, he will have an echocardiogram for assessment of his left ventricular function and potential for structural heart disease. We will follow the patient with you and I thank you for allowing me to participate in his care. My evaluation of the patient and my recommendations have been communicated with the attending/referring physician. Tim Tarango M.D. Cardiology [facility]/ [facility] , [facility] History and Physical Notes Date/Time Note Provider Source 2024-08-27 09:39:30 GI New Patient Consultation Chief Complaint Patient presents with Follow-up Hospitalization Alcoholic liver disease (HHS-HCC), Hepatomegaly HPI: Keyur Randall Sr is a 68 year old male with pmh pAF, CHF, hx of etoh use, hepatomegaly who presents for further evaluation of elevated ammonia and possible liver disease Pt accompanied by his daughter Had admission for hypercapnic respiratory failure, decompensated HF, encephalopathy 05/2024. Ammonia was elevated, had been put on lactulose for period of time [place]. [place] [address] with hepatomegaly without overt cirrhosis. Currently dizzy, BP in high 80s systolic, he notes this is chronic due to diuretics. Has not taken his other anti-hypertensive medications. Had frequent etoh in the past, none since 01/2025. Patient denies abdominal pain, nausea, emesis, hematemesis, melena, hematochezia/BRBPR, constipation, diarrhea, change in bowel habits/stool caliber, weight loss, dysphagia, odynophagia, acid reflux. Past Medical History[1] No past surgical history on file. Medications Ordered Prior to Encounter[2] Allergies[3] Family History[4] Social History[5] ROS: 10 systems reviewed, negative except for as mentioned in HPI. Gen: Denies fevers/chills/night sweats/weight loss HEENT: Denies HAs/visual changes/oral lesions/sore throat CV: Denies CP/CPressure/Palpitations Pulm: Denies SOB/cough GI: See HPI Skin: Denies skin changes/rashes PE: BP (!) 76/46 (Side: Right Arm, Position: SITTING, Cuff Size: Large Adult) | Pulse 99 | Temp 98.1 ?F (36.7 ?C) (Oral) | Ht 5' 11" (1.803 m) | Wt 289 lb 6.4 oz (131.3 kg) | BMI 40.36 kg/m? Gen: NAD, AO x 3 HEENT: No icterus Ab: soft, nt, nd, +bs, no rebound/guarding, obese CHEST: CTAB, no w/r/r Skin: no spider angiomas or palmar erythema Neuro: CN II-XII grossly intact, no asterixis Labs and Diagnostic Tests: The most recent labs, and pertinent imaging studies have been reviewed in the record. Last CBC: WBC Date/Time Value Ref Range Status 07/05/2024 10:15 AM 8.3 3.6 - 12.5 10*3/uL Final Red Blood Cell Date/Time Value Ref Range Status 07/05/2024 10:15 AM 4.75 4.14 - 5.80 10*6/uL Final Hemoglobin Date/Time Value Ref Range Status 07/05/2024 10:15 AM 14.4 12.6 - 17.7 g/dL Final MCV Date/Time Value Ref Range Status 07/05/2024 10:15 AM 93.5 79.0 - 97.0 fL Final MCH Date/Time Value Ref Range Status 07/05/2024 10:15 AM 30.3 26.6 - 33.0 pg Final MCHC Date/Time Value Ref Range Status 07/05/2024 10:15 AM 32.4 31.5 - 35.7 g/dL Final RDW-CV Date/Time Value Ref Range Status 07/05/2024 10:15 AM 14.8 11.6 - 15.4 % Final Platelets Date/Time Value Ref Range Status 07/05/2024 10:15 AM 215 150 - 450 10*3/uL Final Neutrophils Date/Time Value Ref Range Status 07/05/2024 10:15 AM 61 Not estab. % Final Lymphs Date/Time Value Ref Range Status 07/05/2024 10:15 AM 26 Not estab. % Final Monocytes Date/Time Value Ref Range Status 07/05/2024 10:15 AM 10 Not estab. % Final EOS Date/Time Value Ref Range Status 07/05/2024 10:15 AM 2.4 Not estab. % Final BASOS Date/Time Value Ref Range Status 07/05/2024 10:15 AM 0.6 Not estab. % Final Immature Granulocytes Date/Time Value Ref Range Status 07/05/2024 10:15 AM 0.5 Not estab. % Final Last BMP: EGFR Date/Time Value Ref Range Status 08/12/2024 04:06 PM 36 (Low) >59 mL/min/1.73 Final GLUCOSE Date/Time Value Ref Range Status 08/12/2024 04:06 PM 83 70 - 99 mg/dL Final BUN Date/Time Value Ref Range Status 08/12/2024 04:06 PM 43 (High) 8 - 27 mg/dL Final CREATININE Date/Time Value Ref Range Status 08/12/2024 04:06 PM 1.98 (High) 0.76 - 1.27 mg/dL Final BUN/CREATININE RATIO Date/Time Value Ref Range Status 08/12/2024 04:06 PM 22 10 - 24 Final SODIUM Date/Time Value Ref Range Status 08/12/2024 04:06 PM 133 (Low) 134 - 144 mmol/L Final POTASSIUM Date/Time Value Ref Range Status 08/12/2024 04:06 PM 5.2 3.5 - 5.2 mmol/L Final CHLORIDE Date/Time Value Ref Range Status 08/12/2024 04:06 PM 94 (Low) 96 - 106 mmol/L Final CARBON DIOXIDE, TOTAL Date/Time Value Ref Range Status 08/12/2024 04:06 PM 26 20 - 29 mmol/L Final CALCIUM Date/Time Value Ref Range Status 08/12/2024 04:06 PM 9.5 8.6 - 10.2 mg/dL Final Last Hepatic Function Test: PROTEIN, TOTAL, SERUM Date/Time Value Ref Range Status 06/05/2024 03:37 PM 8.4 6.0 - 8.5 g/dL Final ALBUMIN Date/Time Value Ref Range Status 06/05/2024 03:37 PM 3.7 (Low) 3.9 - 4.9 g/dL Final BILIRUBIN, TOTAL Date/Time Value Ref Range Status 06/05/2024 03:37 PM 0.7 0.0 - 1.2 mg/dL Final ALKALINE PHOSPHATASE, SERUM Date/Time Value Ref Range Status 06/05/2024 03:37 PM 108 44 - 121 IU/L Final AST (SGOT) Date/Time Value Ref Range Status 06/05/2024 03:37 PM 36 0 - 40 IU/L Final ALT (SGPT) Date/Time Value Ref Range Status 06/05/2024 03:37 PM 28 0 - 44 IU/L Final U/s 04/2024 1. Liver is enlarged. No cholelithiasis appreciated. Gallbladder wall thickening is noted. Fibrosis 4 Score: 2.12 A/P: 68 year old male with pmh pAF, CHF, hx of etoh use, hepatomegaly who presents for further evaluation of elevated ammonia and possible liver disease No overt cirrhosis on imaging and Fib 4 score is intermediate risk for advanced fibrosis, we discussed elevated ammonia can be multifactorial in setting of acute illness and not always due to liver disease. He has multiple factors for chronic liver disease including prior EtoH abuse, CHF (hepatic congestion), and obesity as risk factor for NAFLD. He is more focused on comfort and not interested in extensive work up for his liver. Could consider MR elastography for fibrosis eval but this can be affected by hepatic congestion We discussed continuing to avoid EtoH completely, follow low carb/low fat diet, and have CHF optimized w cardiology. I asked him to hold remaining anti-hypertensive this AM and to call his photography coordinator isael re: relative hypotension this morning (may be related to his CHF or meds) The above instructions were reviewed with the patient during the clinic visit. All questions were answered. Anthony Bernal MD RTC PRN [1] Past Medical History: Diagnosis Date Cirrhosis (multi HCC) PAF (paroxysmal atrial fibrillation) (multi HCC) Primary osteoarthritis of both knees [2] Current Outpatient Medications on File Prior to Visit Medication Sig Dispense Refill Bumetanide 1 MG oral Tablet Take 2 tablets (2 mg total) by mouth 2 times daily. 30 tablet 3 Levothyroxine Sodium 50 MCG oral Tablet Take 1 tablet (50 mcg total) by mouth daily. 60 tablet 0 Losartan Potassium (COZAAR) 50 MG oral Tablet Take 1 tablet (50 mg total) by mouth daily. 90 tablet 3 Metoprolol Succinate 100 MG oral TABLET SR 24 HR Take 1 tablet (100 mg total) by mouth daily. 30 tablet 0 Spironolactone 25 MG oral Tablet Take 1 tablet (25 mg total) by mouth daily. 90 tablet 2 Tamsulosin HCl 0.4 MG oral Capsule TAKE 1 CAPSULE BY MOUTH EVERY DAY 90 capsule 1 Warfarin (COUMADIN) 5 MG oral Tablet Take 1 tablet (5 mg total) by mouth daily. 90 tablet 1 Hydroquinone 4 % apply externally Cream Apply to dark spots on face starting every other night and increasing to nightly if not too irritated. Use for 2 months on, 1 month off, then re-start PRN. (Patient not taking: Reported on 08/27/2024.) 30 g 1 Lactulose 10 GM/15ML oral Solution TAKE 30 ML (20 G TOTAL) BY MOUTH 3 TIMES DAILY. (Patient not taking: Reported on 08/27/2024.) 8514 mL 1 Semaglutide-Weight Management (Wegovy) 0.25 MG/0.5ML subcutaneous Solution Auto-injector Inject 0.25 mg into the skin once a week. (Patient not taking: Reported on 08/27/2024.) 2 mL 0 Tacrolimus (Protopic) 0.1 % apply externally Ointment Apply to active rash on face if red, itching, or spreading BID PRN. If rash is severe there may be mild burning or stinging with initial use.. (Patient not taking: Reported on 08/27/2024.) 30 g 11 No current facility-administered medications on file prior to visit. [3] No Known Allergies [4] No family history on file. 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/[employer] Tobacco Use Smoking status: Never Smokeless tobacco: Never Vaping Use Vaping status: Never Used Substance and Sexual Activity Alcohol use: Not Currently Alcohol/week: 90.0 oz Types: 150 Cans of beer per week Drug use: Yes Types: Smoked Comment: marijuana on occasion for pain Sexual activity: Not Currently Social Drivers of Health Food Insecurity: No Food Insecurity (05/17/2024) Received from [facility] Hunger Vital Sign Worried About Running Out of Food in the Last Year: Never true Ran Out of Food in the Last Year: Never true Transportation Needs: No Transportation Needs (05/17/2024) Received from [facility] - Transportation Lack of Transportation (Medical): No Lack of Transportation (Non-Medical): No Intimate Partner Violence: Not At Risk (05/17/2024) Received from [facility] Humiliation, Afraid, Rape, and Kick questionnaire Fear of Current or Ex-Partner: No Emotionally Abused: No Physically Abused: No Sexually Abused: No Housing Stability: Low Risk (05/17/2024) Received from [facility] Housing Stability Vital Sign Unable to Pay for Housing in the Last Year: No Number of Times Moved in the Last Year: 0 Homeless in the Last Year: No T [facility] 2024-05-17 02:36:14 CRITICAL CARE H&P NOTE Chief Complaint Patient presents with Altered Mental Status Shortness of Breath Chest Pain Abdominal Pain AMS x 2 weeks, SOB getting worse x 3 days, distended abdomen x 3 weeks History Of Present Illness Keyur Randall is a 68 y.o. male PMH HFrEF, A-fib on Coumadin, EtOH abuse, NIHARIKA/OHS, previously admitted for hypercapnic respiratory failure and discharged with pulmonary follow-up, presented for AMS and visual/auditory hallucinations, AOx3 in ED but required increasing O2 support with VBG showing pCO2 94 thus started on BiPAP. 05/17 -hypercapnic respiratory failure on BiPAP with some level of confusion. pCO2 94, monitoring. Past Medical History He has no past medical history on file. Surgical History He has no past surgical history on file. Family History No family history on file. Social History He reports that he has never smoked. He does not have any smokeless tobacco history on file. He reports that he does not use drugs. No history on file for alcohol use. Allergies Patient has no known allergies. Medications Medications Prior to Admission Medication Sig Dispense Refill Last Dose/Taking amiodarone (Pacerone) 200 MG tablet Take 1 tablet by mouth 1 time each day. CHANGED BY ON 02/28/24 apixaban (Eliquis) 5 MG tablet Take 1 tablet by mouth in the morning and 1 tablet in the evening. 60 tablet 0 digoxin (Lanoxin) 125 MCG tablet Take 1 tablet by mouth 1 time each day. 30 tablet 0 furosemide (Lasix) 40 MG tablet Take 1 tablet by mouth in the morning and 1 tablet in the evening. 60 tablet 0 metoprolol succinate XL (Toprol-XL) 100 MG 24 hr tablet Take 1 tablet by mouth 1 time each day. Do not crush or chew. tamsulosin (Flomax) 0.4 MG 24 hr capsule Take 1 capsule by mouth 1 time each day. 30 capsule 0 Review of Systems Physical Exam: Last Recorded Vitals Blood pressure 100/80, pulse 71, temperature 36.9 ?C (98.5 ?F), temperature source Axillary, resp. rate 19, height 1.803 m (5' 11"), weight (!) 152 kg (334 lb), SpO2 95%. GENERAL APPEARANCE: Morbidly obese, alert, in no acute distress. HEENT: normocephalic. No nasal discharge. On BiPAP CARDIAC: regular rate and rhythm, LUNGS: Clear to auscultation ABDOMEN: Soft, nondistended, nontender. MUSKULOSKELETAL: Cellulitic changes to the lower extremity NEURO/PSYCH: Irritable affect, no selam abnormalities Assessment & Plan Altered mental status, unspecified altered mental status type #Hypercapnic respiratory failure #Chronic heart failure #NIHARIKA/OHS 05/17 -hypercapnic respiratory failure on BiPAP with some level of confusion. pCO2 94, monitoring. > Continue BiPAP, serial ABG, goal pCO2 ~60. NIPPV when asleep > Resume home meds as indicated -Lasix 40bid at this time, monitoring creatinine > f/u PT/INR, consider resume Coumadin, current INR clinic dose 2.5 daily Prognosis: Guarded Critical Care time 35 minutes not including any procedure time. Patient is critically ill with at least one compromised system and at risk for deterioration and life threatening complications. Internal Medicine Physician [facility] 2024-03-04 17:12:06 Images from the original note were not included. HOSPITALIST HISTORY & PHYSICAL Name: Keyur Randall Sr. : 1955 Age: 68 y.o. CSN: [id number] ASSESSMENT & PLAN: Keyur Randall Sr. is a 68 y.o. male who presented on 03/04/2024 for acute hypoxemic respiratory failure, decompensated HFrEF. Patient Active Problem List Diagnosis Morbid obesity (HCC) BMI 40.0-44.9, adult (HCC) New onset atrial fibrillation (CMS/HCC) (HCC) Hypertension Other heart failure (HCC) Acute on chronic systolic (congestive) heart failure (HCC) PLAN: Acute on chronic systolic HF Acute hypoxemic respiratory failure Paroxysmal atrial fibrillation HTN Morbid obesity -Cardiology consult requested -Diuresis with 40 mg lasix BID. Strict I/O, sodium restriction -Wean oxygen as tolerated -Currently in rate controlled A-fib, keep on telemetry. Resume amiodarone 200 mg daily, metop succinate 100 mg daily, digoxin 125 mcg -Continue Eliquis for A-fib hypercoagulability BPH - cont flomax Disposition: Destination after discharge: Home Anticipated or estimated discharge date: >2 midnights VTE prophylaxis: eliquis Electronically signed by: Al Maloney MD, 03/04/2024 at 5:12 PM Chief Complaint: Chief Complaint Patient presents with Shortness of Breath C/O worsen SOB for the past few days, States at physical theraphy this morning his oxygen was low. ? PMH HPI: Keyur Randall Sr. is a 68 y.o. male Recently hospitalized here last month for new onset CHF, atrial fibrillation and EtOH withdrawal. He had been doing relatively well at home but for the past few days he has started to experience shortness of breath, DAO and worsening peripheral edema. He was having home therapy session today and was hypoxic with sats in the 80s, directed to the ED. clinically volume overload on exam with pulmonary edema on imaging, is being admitted for decompensated HF.. ROS: The pertinent positives and negatives are noted in the HPI. All other systems are negative. PAST HISTORY: PMH: History reviewed. No pertinent past medical history. PSH: History reviewed. No pertinent surgical history.. Surgical history reviewed, not pertinent unless noted in HPI FH: Family history reviewed, are negative and not pertinent unless noted in the HPI SH: Social History Socioeconomic History Marital status: Never Spouse name: Not on file Number of children: Not on file Years of education: Not on file Highest education level: Not on file Occupational History Not on file Tobacco Use Smoking status: Never Smokeless tobacco: Not on file Vaping Use Vaping status: Never Used Substance and Sexual Activity Alcohol use: Not on file Drug use: Never Sexual activity: Not on file Other Topics Concern Not on file Social History Narrative Not on file Social Drivers of Health Financial Resource Strain: Not on file Food Insecurity: No Food Insecurity (02/15/2024) Hunger Vital Sign Worried About Running Out of Food in the Last Year: Never true Ran Out of Food in the Last Year: Never true Transportation Needs: No Transportation Needs (02/15/2024) [facility] - Transportation Lack of Transportation (Medical): No Lack of Transportation (Non-Medical): No Physical Activity: Not on file Stress: Not on file Social Connections: Not on file Intimate Partner Violence: Not At Risk (03/04/2024) Humiliation, Afraid, Rape, and Kick questionnaire Fear of Current or Ex-Partner: No Emotionally Abused: No Physically Abused: No Sexually Abused: No Housing Stability: Low Risk (02/15/2024) Housing Stability Vital Sign Unable to Pay for Housing in the Last Year: No Number of Times Moved in the Last Year: 0 Homeless in the Last Year: No ALL: No Known Allergies Patient history reviewed and updated. MEDICATIONS: Current Outpatient Medications Medication Instructions amiodarone (PACERONE) 400 mg, Oral, Daily digoxin (LANOXIN) 125 mcg, Oral, Daily Eliquis 5 mg, Oral, 2 times daily folic acid (FOLVITE) 1 mg, Oral, Daily furosemide (LASIX) 20 mg, Oral, 2 times daily metoprolol tartrate (LOPRESSOR) 75 mg, Oral, Every 12 hours scheduled tamsulosin (FLOMAX) 0.4 mg, Oral, Daily PHYSICAL EXAM: 02/22/2024 12:49 PM 02/22/2024 4:14 PM 02/22/2024 4:15 PM 03/04/2024 1:41 PM 03/04/2024 2:30 PM 03/04/2024 3:30 PM 03/04/2024 4:30 PM Vitals BMI 47.14 kg/m2 BSA (m2) 2.77 m2 Systolic 115 132 121 124 101 Diastolic 64 79 67 69 54 Heart Rate 82 80 68 64 62 69 Temp 36.7 ?C (98 ?F) 36.9 ?C (98.5 ?F) Resp 16 19 19 18 18 17 Height (in) 1.803 m (5' 11") Weight (lb) 338 GEN: comfortable, alert HEENT: NCAT, extraocular movements intact NEURO: nonfocal, answers questions and follows commands CV: RRR, no murmur PULM: Bibasilar crackles, normal effort GI: soft +bs, not tender EXT: no clubbing or cyanosis, 3+ edema Hoang: none Central lines: none LABS/IMAGING: Results from last 7 days Lab Units 03/04/24 1511 WBC 10*3/uL 6.52 HEMOGLOBIN g/dL 13.8 HEMATOCRIT % 44.0 PLATELETS 10*3/uL 204 SODIUM mEq/L 135* POTASSIUM mEq/L 4.6* CHLORIDE mEq/L 93* CO2 mEq/L 39.3* BUN mg/dL 12 CREATININE mg/dL 0.73 EGFR mL/min/1.73m2 100 GLUCOSE mg/dL 93 CALCIUM mg/dL 8.1* Electronically signed by: Al Maloney MD, 03/04/2024 at 5:12 PM [facility] 2024-02-16 08:51:18 CRITICAL CARE MEDICINE HISTORY & PHYSICAL History Of Present Illness Keyur Randall Sr. is a 68 y.o. male with no known past medical history who presented on 1224 to the hospital with worsening exertional dyspnea, pedal edema, chest pain. Patient admitted to the floor with new onset A-fib and congestive heart failure and was being diuresed. However patient is also alcoholic and started going into withdrawal and got 1 mg of Ativan following which he became drowsy. Subsequent ABG showed hypercarbia and started on noninvasive ventilation and transferred to the ICU Past Medical History He has no past medical history on file. Surgical History He has no past surgical history on file. Family History No family history on file. Social History He reports that he has never smoked. He does not have any smokeless tobacco history on file. No history on file for alcohol use and drug use. Allergies Patient has no known allergies. Medications No medications prior to admission. Review of Systems Unable to obtain as patient is drowsy Last Recorded Vitals Blood pressure (!) 103/59, pulse (!) 119, temperature 37.1 ?C (98.7 ?F), temperature source Axillary, resp. rate 22, height 1.803 m (5' 11"), weight (!) 146 kg (321 lb 6.9 oz), SpO2 98%. Physical Exam General: In distress HEENT: Normocephalic, atraumatic, no gaze preference, pupils equal and reactive Neck: , supple CV: Tachycardic, irregular, no murmurs, no gallop. Pulm:Coarse BS, wheezing present Abd: Soft, Non tender, non distended, +BS Derm: Normal, no evidence of skin breakdown Ext: Warm, well-perfused, bilateral lower extremity edema Neuro: Drowsy, protecting airway, responds to painful stimulus Relevant Results Chest x-ray with pulmonary edema Sodium 135, potassium 5.1, creatinine 0.86, BUN 16, blood glucose control, ammonia 82, hemoglobin 14.7, platelet count 160 Assessment & Plan Principal Problem: New onset atrial fibrillation (CMS/HCC) (HCC) Active Problems: Morbid obesity (HCC) BMI 40.0-44.9, adult (HCC) Hypertension Acute hypoxic respiratory failure (HCC) Other heart failure (HCC) Acute congestive heart failure Metabolic encephalopathy Alcohol withdrawal Acute hypoxemic hypercarbic respiratory failure Hyperammonemia Plan Will do low-dose Precedex if needed for agitation, patient seems to be very sensitive to benzodiazepines IV thiamine, will start on lactulose Optimize volume status, will start Lasix drip, on amnio for rate control Beta-bertha per cardiology, has hold parameters Continue noninvasive ventilation, will repeat ABG N.p.o. for now, monitor LFTs Monitor renal function, electrolytes, replace as appropriate, insert Hoang Monitor for any bleeding, transfuse if hemoglobin is less than 7 POC blood glucose checks, watch for hypoglycemia DVT prophylaxis-on therapeutic dose of Lovenox GI prophylaxis-not indicated Critical Care Time: I spent 40 minutes providing direct critical care to this patient. (Excludes time performing procedures) [facility] 2024-02-14 22:30:56 HOSPITALIST ADMISSION HISTORY AND PHYSICAL Patient Name:Keyur Mendozaanali Braxton Primary Physician/Provider : Kari Perssley NP Attending Physician/Provider : Hi Hill MD;Samm Smith * Primary Problem: New onset atrial fibrillation (CMS/HCC) (HCC) Date of Admission: 02/14/2024 Date of Service:02/14/24 Chief Complaint Patient presents with Shortness of Breath Pt here for c/c of shortness of breath x5 days that worsened this morning and chest pain with breathing. Pt stated that he has congestion but is not able to cough it up. Denies any fevers. No pmhx. Chest Pain HPI: Keyur Randall Sr. is a 68 y.o.male presented to ED with 5-day history of worsening shortness of breath, lower extremity swelling, chest pain and congestion. Patient denies fever, chills, rigors, palpitation, abdominal pain, hematemesis, melena, dysuria. Patient admits drinking beer occasionally. Denies smoking. He was found to be hypoxic in mid 80s on room air and placed on 3 L nasal cannula oxygen in the ED. Tachycardic with A-fib with RVR heart rate in 100s to 130s with hypertension BP of 154/103. Labs elevated BNP 257. Troponin x 2 negative. CBC unremarkable BMP significant for alkalosis with bicarb 33. Chest x-ray cardiomegaly with mild pulmonary edema pattern and small pleural effusion. He was given IV Lasix in ED cardiology was consulted ROS- 14 point system reviewed and found negative except as per HPI No past medical history on file. No past surgical history on file. Social History Socioeconomic History Marital status: Never Spouse name: Not on file Number of children: Not on file Years of education: Not on file Highest education level: Not on file Occupational History Not on file Tobacco Use Smoking status: Never Smokeless tobacco: Not on file Substance and Sexual Activity Alcohol use: Not on file Drug use: Not on file Sexual activity: Not on file Other Topics Concern Not on file Social History Narrative Not on file Social Drivers of Health Financial Resource Strain: Not on file Food Insecurity: Not on file Transportation Needs: Not on file Physical Activity: Not on file Stress: Not on file Social Connections: Not on file Intimate Partner Violence: Not At Risk (02/14/2024) Humiliation, Afraid, Rape, and Kick questionnaire Fear of Current or Ex-Partner: No Emotionally Abused: No Physically Abused: No Sexually Abused: No Housing Stability: Not on file No family history on file. No Known Allergies No current facility-administered medications on file prior to encounter. No current outpatient medications on file prior to encounter. Physical Exam: Blood pressure (!) 154/103, pulse (!) 105, temperature 37 ?C (98.6 ?F), temperature source Oral, resp. rate 22, height 1.803 m (5' 11"), weight 136 kg (300 lb), SpO2 (!) 86%. General: Tachypneic, morbidly obese HEENT: Normocephalic, atraumatic, neck is supple CVS: Irregularly irregular Lungs: VBS, decreased breath sound Abdomen: Soft, NT, distended, normoactive bowel sounds Extremities: 2+ bilateral lower extremity pitting edema Neuro: Awake, no facial asymmetry, no focal neuro deficit Skin: Dry LABORATORY DATA: Recent Results (from the past 24 hours) Basic metabolic panel Collection Time: 02/14/24 8:35 PM Result Value Ref Range Glucose Lvl 102 (H) 70 - 99 mg/dL BUN 13 9 - 23 mg/dL Creatinine Lvl 1.00 0.7 - 1.30 mg/dL Sodium Lvl 135 (L) 136 - 145 mEq/L Potassium Lvl 4.2 3.4 - 4.5 mEq/L Chloride Lvl 96 (L) 98 - 107 mEq/L CO2 Lvl 33.3 (H) 20.0 - 31.0 mEq/L Anion Gap 9.9 (L) 10.0 - 20.0 mEq/L Calcium Lvl 8.9 8.3 - 10.6 mg/dL eGFR 82 >60 mL/min/1.73m2 Creatine Kinase Collection Time: 02/14/24 8:35 PM Result Value Ref Range CK Total 119 62 - 302 U/L Troponin I High Sensitivity Careset (Baseline) Collection Time: 02/14/24 8:35 PM Result Value Ref Range HS Troponin I Baseline 8 0 - 54 pg/mL Complete Blood Count Collection Time: 02/14/24 8:35 PM Result Value Ref Range WBC 9.51 3.92-.10.07 10*3/uL RBC 4.94 4.27 - 6.02 10*6/uL NRBC % 0.0 0 /100 WBC Hgb 15.8 12.4 - 17.4 g/dL Hct 49.9 37.1 - 50.8 % MCV 101.0 (H) 79.2 - 96.8 fL MCH 32.0 26.1 - 32.4 pg MCHC 31.7 31.2 - 36.1 g/dL RDW - SD 53.4 (H) 34.0 - 37.0 fL Plt Count 164 160 - 381 10*3/uL MPV 10.3 9.0 - 12.0 fL Automated Differential Collection Time: 02/14/24 8:35 PM Result Value Ref Range Segs % 70.4 40.6 - 75.7 % Lymphs % 18.0 14.9 - 47.8 % Monos % 9.3 4.2 - 12.6 % Eos % 0.8 0.2 - 5.0 % Basos % 0.7 0.2 - 1.3 % Immature Grans % 0.8 0.1 - 1 % Segs # 6.69 (H) 1.48 - 6.56 10*3/uL Lymphs # 1.71 0.86 - 3.84 10*3/uL Monos # 0.88 0.29 - 0.96 10*3/uL Eos # 0.08 0.00 - 0.46 10*3/uL Basos # 0.07 0.01 - 0.08 10*3/uL Imm Grans # 0.08 (H) 0.01 - 0.07 10*3/uL B-type natriuretic peptide Collection Time: 02/14/24 8:35 PM Result Value Ref Range Natriuretic Peptide B 257 (H) 0 - 100 pg/mL Troponin I High Sensitivity Careset (1st Hr) Collection Time: 02/14/24 9:46 PM Result Value Ref Range HS Troponin I 1 Hour 10 0 - 54 pg/mL HS Troponin I 0 to 1 Hour Delta 2 RADIOLOGY DATA: XR chest 1 view Narrative: EXAM: XR CHEST 1 VIEW DATE: 02/14/2024 8:39 PM BOTTOM POLISHER. INDICATION: chest pain Chest pain . COMPARISON: None available. TECHNIQUE: Frontal chest. FINDINGS: Lines, Tubes and Hardware: None. Lungs and Pleura: Mild perihilar interstitial opacities and hazy bibasilar groundglass opacities with small pleural effusions. Heart and Mediastinum: The heart size is enlarged. The mediastinal contours are unremarkable. Pulmonary vascular congestion is present. Bones: No acute skeletal abnormality is identified. Impression: Cardiomegaly with mild pulmonary edema pattern and small pleural effusions. Electronically signed by: Clark Wang MD 02/14/2024 08:50 PM BOTTOM POLISHER Assessment & Plan New onset atrial fibrillation (CMS/HCC) (HCC) Telemonitoring Echocardiogram Appreciate cardiology consult by ED team Other heart failure (HCC) IV Lasix as ordered Daily weight and intake output Cardiology consulted Echocardiogram Acute hypoxic respiratory failure (HCC) Continue nasal cannula oxygen to maintain around 92% saturation Morbid obesity (HCC) Poor prognosis factor BMI 40.0-44.9, adult (HCC) Poor prognosis factor Hypertension Current Diet : Adult Diet Heart Healthy VTE prophylaxis : SCD Disposition : Admit Parts of this note were created using voice recognition software. I do review the document and make every reasonable attempt to avoid incorrect typographical errors prior to signing, but this document may contain errors due to improper word substitutions not identified before finalizing the document. 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 Pt is here for Hyperpigmentation. Pt states its been ongoing since May, pt states it occurred at the hospital from the oxygen mask.Pt states it has been getting worse over time. Pt states to have states no irritation or pain. Pt states no treatment used. Pt states to have no personal/family HX of SC. Meseret Peña MA [facility] 2024-07-04 08:52:06 Chief Complaint Patient presents with OTHER Patient would like to talk about weight increase THEODORE SERRANO CMA [facility] 2024-06-20 14:18:38 Chief Complaint Patient presents with OTHER Establishing care THEODORE SERRANO CMA Theodore Serrano MA [facility] 2024-06-10 10:37:44 Nurse performed spirometry test with patient, patient tolerated well. Patient notified that sleep center would contact them to schedule sleep study. Rosanna Melendez LVN [facility] 2024-06-10 09:58:16 Chief Complaint Patient presents with Consultation Hospital follow up/oxygen saturations drop when sleeping [place] Shafer MA T [facility] 2024-06-05 14:43:36 Chief Complaint Patient presents with Hospital F/U Admitted 3 separate times for extra fluid in lungs and extremities low O2 and high CO2 ammonia levels were high Rosita Salomon MA [facility] 2024-05-31 11:34:57 Chief Complaint Patient presents with Knee Injury left @Enzo Dawson MA [facility] Referral ID Status Reason Start Date Expiration Date Visits Requested Visits Authorized [id number] Pending Review Specialty Services Required 05/27/2024 07/26/2024 999 999 [id number] 13:11:16* * Auth/Cert (Routine) Specialty Diagnoses / Procedures Referred By Kedar tovar Referred To Contact Diagnoses Respiratory distress DILLON (acute kidney injury) (HCC) Altered mental status, unspecified altered mental status type Procedures [facility] IP/OBS CARE SF/LOW MDM 40 MINUTES Sher Murray Uzma, DO [address] [facility] 2 [facility] [address] [place] [address] Phone: tel: fax: [facility] (E3 Medical ICU) [address] [place] [address] Phone: tel: Referral ID Status Reason Start Date Expiration Date Visits Re quested Visits Authorized [id number] 1 1 [id number] 13:11:16 [id number] 13:11:16* Intimate Partner Violence Question Answer Date of Assessment Author Within the last year, have y ou been humiliated or emotionally abused in other ways by your partner or ex-partner? No 05/17/2024 3:36 AM Arina Urena RN Within the last year, have y ou been afraid of your partner or ex-partner? No 05/17/2024 3:36 AM Arina Urena RN Within the last year, have y ou been raped or forced to have any kind of sexual activity by your partner or ex-partner? No 05/17/2024 3:36 AM Arina Urena RN Within the last year, have y ou been kicked, hit, slapped, or otherwise physically hurt by your partner or ex-partner? No 05/17/2024 3:36 AM Arina Urena RN * Calculated C-SSRS Risk Score (Lifetime/Recent) Answer Date of Assessment Author No Risk Indicated 05/16/2024 2:57 PM CDT Lexis Meadows RN * [place] Suicide Severity Rating Scale (Screener/Recent Self-Report) Question Answer Date of Assessment Author 1. Wish to be (Past 1 Month) No 025 2:57 PM JOSÉ ANTONIOT Lexis Meadows RN 2. Non-Specific Active Suici carrie Thoughts (Past 1 Month) No 05/16/2024 2:57 PM CDT Lexis Meadows RN 6. Suicidal Behavior (Lifetime) No 2:57 PM CDT Lexis Meadows RN [id number] 13:11:16* Al Maloney MD - 05/27/2024 11:25 AM CDT Images from the original note were not included. DISCHARGE SUMMARY Name: Keyur Randall Sr. : 1955 Age: 68 y.o. CSN: [id number] Admit Date: 05/16/2024 Discharge date: 05/27/2024 (LOS: 10 days) Discharge diagnosis: Active Problems: Morbid obesity (HCC) Acute hypercapnic respiratory failure (CMS/HCC) (HCC) Acute on chronic systolic (congestive) heart failure Acute metabolic encephalopathy Disposition: home . Condition of Patient at Discharge: Good Adult Diet Heart Healthy Return to previous diet Activity: As tolerated Consultants: Cardiology Procedures: none Pending lab and/or other tests requiring follow up: Sleep study Hospital course: 68 y.o. male with history of HFrEF, atrial fibrillation on AC, EtOH abuse, untreated NIHARIKA/OHS. Admitted on 05/16/2024 to ICU with decompensated HF, encephalopathy with hypercapneic respiratory failure requiring NIPPV. Aggressively diuresed and weaned to NC over few days with improvement to baseline mentation. Briefly required sedation with precedex for agitation/delirium. Transferred out of ICU 05/24, unremarkable hospital course thereafter. Stable on room air at time of discharge. Some BP meds were adjusted for hypotension, discontinued losartan and changed to metoprolol tartrate 25 mg q6h. Sent home in good condition with home health, outpatient cardiology and pulmonary follow up to arrange sleep study. Physical Exam: 05/26/2024 10:57 PM 05/26/2024 10:58 PM 05/27/2024 2:15 AM 05/27/2024 5:21 AM 05/27/2024 5:23 AM 05/27/2024 7:54 AM 05/27/2024 10:43 AM Vitals BMI 42.74 kg/m2 BSA (m2) 2.64 m2 Systolic 148 130 127 152 Diastolic 73 71 78 82 Heart Rate 77 75 81 65 70 Temp 36.9 ?C (98.5 ?F) 36.9 ?C (98.5 ?F) 37 ?C (98.6 ?F) 36.9 ?C (98.4 ?F) Resp 18 18 17 13 16 Weight (lb) 306.44 GEN: comfortable, alert HEENT: NCAT, extraocular movements intact NEURO: nonfocal, answers questions and follows commands CV: RRR, no murmur PULM: clear to ausculation, normal effort GI: soft +bs, not tender EXT: no clubbing or cyanosis, no edema Your medication list START taking these medications Instructions Last Dose Given Next Dose Duelactulose 10 GM/15ML solution Commonly known as: Chronulac Take 30 mL by mouth in the morning and 30 mL at noon and 30 mL in the evening.Do all this for 10 days. metoprolol tartrate 25 MG tabletCommonly known as: Lopressor Take 1 tablet by mouth every 6 hours. CONTINUE taking these medications Instructions Last Dose Given Next Dose Dueamiodarone 200 MG tablet Commonly known as: Pacerone Take 1 tablet by mouth 1 time each day. CHANGED BY MD ON 02/28/24 furosemide 40 MG tabletCommonly known as: Lasix Take 1 tablet by mouth in the morning and 1 tablet in the evening. tamsulosin 0.4 MG 24 hr capsuleCommonly known as: Flomax Take 1 capsule by mouth 1 time each day. warfarin 2.5 MG tabletCommonly known as: Coumadin STOP taking these medications digoxin 125 MCG tabletCommonly known as: Lanoxin Eliquis 5 MG tablet Generic drug: apixaban losartan 25 MG tablet Commonly known as: Cozaar metoprolol succinate XL 100 MG 24 hr tablet Commonly known as: Toprol-XL Where to Get Your Medications These medications were sent to [facility]/pharmacy #[id number] [place] [address] [facility] [address] [facility] [address] [id number] 10 GM/15ML solution metoprolol tartrate 25 MG tablet Follow-up instructions:PCP Dr. Elmore 1-[address] Frausto 2 weeks Pulmonary 2-4 weeks I spent more than 30 minutes on discharge activities for Keyur Vincent Sr. on 05/27/2024. Electronically signed by: Al Maloney MD, 05/27/2024 at 11:25 AM [place] [id number] 13:11:16* Joanna Valdez, JenD - 05/27/2024 11:15 AM CDT Warfarin Dosing Consult Note Consulting Provider: Dr. Urbano Rded Indication of use: Atrial fibrillation or flutter INR Target Range: 2 - 3 (Atrial Fibrillation and most other indications) Planned Duration: Lifelong Therapy Status: Existing Therapy Home Regimen: 0.5mg daily Monday-Monday; 1mg Monday and Monday Subjective: Keyur Randall Sr. is a 68 y.o. male with history of HFrEF, atrial fibrillation on AC, EtOH abuse, untreated NIHARIKA/OHS. Admitted on 05/16/2024 to ICU with decompensated HF, encephalopathy with hypercapneic respiratory failure. Warfarin consult ordered 05/24. Labs Hgb Date Value Ref Range Status 05/27/2024 14.3 12.4 - 17.4 g/dL Final 05/25/2024 13.7 12.4 - 17.4 g/dL Final 05/24/2024 13.7 12.4 - 17.4 g/dL Final Plt Count Date Value Ref Range Status 05/27/2024 194 160 - 381 10*3/uL Final 05/25/2024 189 160 - 381 10*3/uL Final 05/24/2024 198 160 - 381 10*3/uL Final INR Date Value Ref Range Status 05/27/2024 1.06 0.85 - 1.17 Final 05/26/2024 1.06 0.85 - 1.17 Final 05/25/2024 1.18 (H) 0.85 - 1.17 Final 05/24/2024 1.20 (H) 0.85 - 1.17 Final No results found for: "PROTIME" PTT Date Value Ref Range Status 05/24/2024 47.4 (H) 22.9 - 35.8 Seconds Final Warfarin Dose Administered: Warfarin Administrations (last 168 hours) Date/Time Action Medication Dose 05/26/24 1836 Given warfarin (Coumadin) tablet 3 mg 3 mg 05/25/24 1736 Given warfarin (Coumadin) tablet 1 mg 1 mg 05/25/24 0006 Given warfarin (Coumadin) tablet 0.5 mg 0.5 mg Bridging Agents Administered:Enoxaparin 135 mg every 12 hours Significant Drug Interactions:There is a significant drug interaction with: The following agents can cause an increase in INR: Amiodarone Plan:INR is: Subtherapeutic today. Plan to: Continue warfarin dose of 3 mg based on INR trend. Will order daily INRs and adjust warfarin dosing accordingly until INR is stable in the therapeutic range. Will continue bridging with Enoxaparin 135 mg every 12 hours until INR is in the therapeutic range. Thank you for the consult. We will continue to follow the patient. Pleasecontact pharmacy at [phone] with any questions. Joanna Valdez PharmD * Nelson Miller, PT - 05/27/2024 10:20 AM CDT Treatment Session Note Patient Name: Keyur Randall . Today's Date: 05/27/2024 Preferred Language: Ecuadorean Assessment & Plan Assessment: PT Assessment: Pt able to progress ambulation this treatment. Limited by general weakness and decreased endurance. Will continue to benefit from skilled therapy to improve functional mobility. Prognosis: Excellent Medical Staff Made Aware: Yes Plan: PT Plan: Skilled PT PT Frequency: 4-5 times per week until discharge Subjective Pt agreed to treatment. Health Conditions Objective General Visit Information: PT Last Visit PT Received On: 05/27/24 Cognition Orientation Level: Oriented X4 TreatmentTherapeutic activity: Therapeutic Activity Therapeutic Activity Time Entry: Therapeutic Activity 1: Functional mobility training Bed Mobility: Bed Mobility 1:Level of Assistance 1: Partial/Mod assistance (min to mod A) Bed Mobility To/From: Supine to sit on EOB, Sitting EOB to supine Transfers: Transfers 1: Level of Assistance 1: Supervision/touching assistance (min A) Trials/Comments 1: Verbal cues needed on proper hand and feet placement and standing balance posture. Transfer To/From: [id number]/[id number] Assistive Devices And Adaptive Equipments: Walker, front-wheeled Gait training: Gait Training Activity 1: Distance (enter in feet): 15 ft Assistive Devices And Adaptive Equipments: Walker, front-wheeled Level of Assistance 1: Supervision/touching assistance (min A) Gait Training Activity 1 Comment: Pt given verbal cues on activity pacing. Limited by some abdominal discomfort reports need for BM. Offered to set up pt on commode but pt reports not fully ready for BM and requested back to bed. Educated pt to call for staff assist when getting up and pt verbalized understanding. AM-PAC Basic Mobility:AM-PAC Basic Mobility Inpatient Turning in bed without bedrails: A Little Lying on back to sitting on edge of flat bed: A Lot Bed to chair: A Little Standing up from chair: A Little Walk in room: A Little Climbing 3-5 stairs: A Lot Mobility Inpatient Raw Score: 16 JH-HLM Goal: 5 Mobility: Highest Level of Mobility Performed (JH-HLM)JH-HLM Goal: 5 Highest Level of Mobility Performed (JH-HLM): Walked 10 steps or more (i.e. walked to restroom) Patient Education:Education Documentation Mobility, taught by Nelson Miller PT at 05/27/2024 10:50 AM. Learner: Patient Readiness: Acceptance Method: Explanation Response: Verbalizes Understanding Education CommentsNo comments found. Goals:Encounter Goals Encounter Goals (Active) Patient will perform bed mobility with SPV. (Progressing) Start: 05/21/24 Expected End: 06/11/24 Patient will perform transfers with SPV with Least restrictive assistive device or no device. (Progressing) Start: 05/21/24 Expected End: 06/11/24 Patient will ambulate 150ft with Least restrictive assistive device or no device with SPV. (Progressing) Start: 05/21/24 Expected End: 06/11/24 Treatment Note: If this is the last documented treatment, then it will signify discharge from acute care prior to discharge from the therapy service and will serve as the discharge summary. Nelson Miller PT * Maryse Mcpherson MD - 05/26/2024 5:05 PM CDT Images from the original note were not included. HOSPITALIST PROGRESS NOTE Name: Keyur Randall Sr. CSN: [id number] Admit Date: 05/16/2024 Code Status: DNR LOS: 9 days HOSPITAL COURSE: Keyur Randall Sr. is a 68 y.o. male with history of HFrEF, atrial fibrillation on AC, EtOH abuse, untreated NIHARIKA/OHS. Admitted on 05/16/2024 to ICU with decompensated HF, encephalopathy with hypercapneic respiratory failure requiring NIPPV. Aggressively diuresed and weaned to NC over few days with improvement to baseline mentation. Briefly required sedation with precedex for agitation/delirium. Transferred out of ICU 05/24. ASSESSEMENT: Active Problems: Morbid obesity (HCC) Acute hypercapnic respiratory failure (CMS/HCC) (HCC) Acute on chronic systolic (congestive) heart failure Acute metabolic encephalopathy PLAN: Acute hypercapnic respiratory failure Acute metabolic encephalopathy, resolved Suspected NIHARIKA/OHS Acute on chronic HFrEF Persistent atrial fibrillation - wean oxygen as tolerated, stable on room air. BiPAP while sleeping for suspected NIHARIKA/OHS. - will need sleep study/pulm on discharge - cardiology following appreciate recs - TTE with interval improvement in EF - Creatinine showed improvement. Renal following, continue on po diuretics as tolerated - cont metop tartrate 25 mg q6h, amio 200 mg for rate control - full dose lovenox for AF hypercoaguability, resumed coumadin 05/25, follow INR. Will need both on dc. 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 States has been unsteady by just sitting at edge of bed. Complains of wound to face from mask Daughter complains of pt seen things intermittently CC: confusion OBJECTIVE: Intake/Output Summary (Last 24 hours) at 05/26/2024 1710 Last data filed at 05/26/2024 1113 Gross per 24 hour Intake -- Output 1100 ml Net -1100 ml Physical Exam: Vitals: 05/26/24 1541 BP: Pulse: 68 Resp: 18 Temp: SpO2: 98% GEN: comfortable, alert HEENT: NCAT, extraocular movements intact, left cheek, nasal area with mild erythema and swelling NEURO: nonfocal, a&O x3 and follows commands CV: Normal rate, systolic murmur PULM: clear to ausculation, normal effort GI: soft +bs, not tender EXT: no clubbing or cyanosis, 1+ edema Hoang: none Central lines: none Data: Results from last 7 days Lab Units 05/26/24 1116 05/26/24 0633 05/26/24 0545 05/25/24 0601 05/25/24 0425 05/24/24 1952 05/24/24 0849 05/24/24 0356 05/23/24 0855 05/23/24 0613 05/22/24 1646 05/22/24 0457 WBC 10*3/uL -- -- -- -- 7.12 7.53 -- 7.04 -- 6.38 -- 8.45 HEMOGLOBIN g/dL -- -- -- -- 13.7 13.7 -- 14.0 -- 15.7 -- 14.2 HEMATOCRIT % -- -- -- -- 43.3 44.5 -- 44.6 -- 50.1 -- 44.1 PLATELETS 10*3/uL -- -- -- -- 189 198 -- 169 -- 155* -- 194 INR -- -- 1.06 -- 1.18* 1.20* -- -- -- -- -- -- PTT Seconds -- -- -- -- -- 47.4* -- -- -- -- -- -- MAGNESIUM mg/dL -- -- -- -- -- -- -- 2.39 -- 2.34 -- 2.17 SODIUM mEq/L -- -- 133* -- 133* -- -- 133* -- 137 -- 135* POTASSIUM mEq/L -- -- 4.0 -- 4.0 -- -- 3.8 -- 3.8 -- 3.8 CHLORIDE mEq/L -- -- 94* -- 97* -- -- 94* -- 95* -- 93* CO2 mEq/L -- -- 33.9* -- 33.3* -- -- 34.9* -- 36.7* -- 34.1* BUN mg/dL -- -- 18 -- 29* -- -- 24* -- 18 -- 20 CREATININE mg/dL -- -- 1.03 -- 1.16 -- -- 1.51* -- 1.30 -- 1.11 EGFR mL/min/1.73m2 -- -- 80 -- 69 -- -- 50* -- 60* -- 73 GLUCOSE mg/dL -- -- 91 -- 110* -- -- 116* -- 76 -- 74 POC GLUCOSE mg/dL 89 < > -- < > -- -- < > -- < > -- < > -- CALCIUM mg/dL -- -- 8.6 -- 8.4 -- -- 8.6 -- 8.5 -- 9.3 PHOSPHORUS mg/dL -- -- 2.1* -- 2.7 -- -- 3.1 -- 4.2 -- 2.8 ALK PHOS U/L -- -- -- -- -- -- -- 106 -- 105 -- 112 BILIRUBIN TOTAL mg/dL -- -- -- -- -- -- -- 0.90 -- 1.30* -- 2.00* PROTEIN TOTAL g/dL -- -- -- -- -- -- -- 8.5* -- 8.8* -- 8.1 ALT U/L -- -- -- -- -- -- -- 19 -- 15 -- 14 AST U/L -- -- -- -- -- -- -- 37 -- 34 -- 22 < > = values in this interval not displayed. Medications:Scheduled Meds:amiodarone, 200 mg, Oral, Daily enoxaparin, 1 mg/kg, Subcutaneous, q12h furosemide, 40 mg, Oral, BID lactulose, 20 g, Oral, TID [Held by provider] losartan, 25 mg, Oral, Daily metoprolol tartrate, 25 mg, Oral, q6h GREG mupirocin, , Topical, TID sodium chloride, 10 mL, Intravenous, q12h GREG warfarin, 3 mg, Oral, Daily Continuous Infusions:PRN Meds:.PRN medications: acetaminophen, bisacodyl, calcium gluconate, dextromethorphan-guaiFENesin, diphenhydrAMINE, hydrALAZINE, ipratropium-albuterol, magnesium oxide, magnesium sulfate, magnesium sulfate, magnesium sulfate, melatonin, morphine, ondansetron, polyethylene glycol (PEG) 3350, potassium & sodium phosphates, potassium chloride, potassium chloride, potassium chloride, Potassium chloride, potassium phosphate, potassium phosphate, Insert peripheral IV AND Saline lock IV AND sodium chloride, sodium phosphate, sodium phosphate, traMADol, Warfarin Pharmacy Dosing Electronically signed by: Maryse Mcpherson MD, 05/26/2024 * Ron Gomez MD - 05/26/2024 1:30 PM CDT Images from the original note were not included. Nephrology Progress Note May 26, 2024 Renal Assessment:1. Acute kidney injury secondary to permissive diuresis (cardiorenal syndrome).improved. 2. Acute respiratory failure secondary to pulmonary edema, improved. 3. Acute on chronic systolic heart failure 4. Morbid obesity 5. Acute encephalopathy, improved 6. Leg edema secondary to CHF, has no significant proteinuria. 7. Hypophosphatemia Plan: 1. Continue furosemide 40 mg twice a day 2. Continue to monitor electrolytes and azotemia. 3. Replace hypophosphatemia with K-Phos Reason for consult: Acute kidney injury Subjective:He is not complaining of chest pain or shortness of breath. ROS:Cardiovascular: No chest pain , No palpitation Pulmonary : No cough, no hemoptysis Gastrointestinal : No nausea, No vomiting, No diarrhea : No dysuria Medications: reviewed.amiodarone, 200 mg, Oral, Daily enoxaparin, 1 mg/kg, Subcutaneous, q12h furosemide, 40 mg, Oral, BID [Held by provider] losartan, 25 mg, Oral, Daily metoprolol tartrate, 25 mg, Oral, q6h GREG sodium chloride, 10 mL, Intravenous, q12h GREG warfarin, 3 mg, Oral, Daily Medications given as infusions: Medications given as PRN:PRN medications: acetaminophen, bisacodyl, calcium gluconate, dextromethorphan-guaiFENesin, diphenhydrAMINE, hydrALAZINE, ipratropium-albuterol, magnesium oxide, magnesium sulfate, magnesium sulfate, magnesium sulfate, melatonin, morphine, ondansetron, polyethylene glycol (PEG) 3350, potassium & sodium phosphates, potassium chloride, potassium chloride, potassium chloride, Potassium chloride, potassium phosphate, potassium phosphate, Insert peripheral IV AND Saline lock IV AND sodium chloride, sodium phosphate, sodium phosphate, traMADol, Warfarin Pharmacy Dosing Exam:Blood pressure 121/62, pulse 63, temperature 36.9 ?C (98.5 ?F), resp. rate 17, height 1.803 m (5' 11"), weight (!) 139 kg (306 lb 7 oz), SpO2 95%. Body mass index is 42.74 kg/m?. Intake/Output: Intake/Output Summary (Last 24 hours) at 05/26/2024 1330Last data filed at 05/26/2024 0604 Gross per 24 hour Intake -- Output 500 ml Net -500 ml HEENT: TARIQ, anicteric scleraNeck: supple Chest/Lungs: bilateral air entry Heart: Regular rhythm Abdomen: soft, non tender Extremities: Presence of chronic edema Patient Active Problem ListDiagnosis Morbid obesity (HCC) BMI 40.0-44.9, adult (HCC) New onset atrial fibrillation (CMS/HCC) (HCC) Hypertension Acute hypercapnic respiratory failure (CMS/HCC) (HCC) Other heart failure Acute on chronic systolic (congestive) heart failure Acute hypoxic respiratory failure (HCC) Acute metabolic encephalopathy LABORATORY (Reviewed):Results from last 7 days Lab Units 05/25/24 0892 05/24/24195105/24/24 0356 WBC 10*3/uL 7.12 7.53 7.04 HEMOGLOBIN g/dL 13.7 13.7 14.0 HEMATOCRIT % 43.3 44.5 44.6 MCV fL 97.5* 97.2* 98.7* PLATELETS 10*3/uL 189 198 169 Results from last 7 daysLab Units 05/26/24 1116 05/26/24 0633 05/26/24 0545 05/25/24 0601 05/25/24 0425 05/24/24 0849 05/24/24 0356 SODIUM mEq/L -- -- 133* -- 133* -- 133* POTASSIUM mEq/L -- -- 4.0 -- 4.0 -- 3.8 CHLORIDE mEq/L -- -- 94* -- 97* -- 94* CO2 mEq/L -- -- 33.9* -- 33.3* -- 34.9* BUN mg/dL -- -- 18 -- 29* -- 24* CREATININE mg/dL -- -- 1.03 -- 1.16 -- 1.51* EGFR mL/min/1.73m2 -- -- 80 -- 69 -- 50* CALCIUM mg/dL -- -- 8.6 -- 8.4 -- 8.6 PROTEIN TOTAL g/dL -- -- -- -- -- -- 8.5* BILIRUBIN TOTAL mg/dL -- -- -- -- -- -- 0.90 ALK PHOS U/L -- -- -- -- -- -- 106 ALT U/L -- -- -- -- -- -- 19 AST U/L -- -- -- -- -- -- 37 GLUCOSE mg/dL -- -- 91 -- 110* -- 116* POC GLUCOSE mg/dL 89 < > -- < > -- < > -- ALBUMIN g/dL -- -- 3.0* -- 2.8* -- 2.9* < > = values in this interval not displayed. A total of >35 minutes were spent in evaluation and management for patient today, exclusive of any procedures. Time spent included pre and post chart review, labs/imaging review, medication review, cut order hand, and [id number] time with the patient. Case was also discussed with primary and RN in coordination of care. Ron Gomez MD[facility] Office: * Leannmellisa Cuevas, PharmD - 05/26/2024 8:23 AM CDT Warfarin Dosing Consult Note Consulting Provider: Dr. Urbano Redd Indication of use: Atrial fibrillation or flutter INR Target Range: 2-3 Planned Duration: lifelong Home Regimen: 0.5mg daily Monday-Monday; 1mg Monday and Monday. Labs Hgb Date Value Ref Range Status 05/24/2024 13.7 12.4 - 17.4 g/dL Final 05/24/2024 14.0 12.4 - 17.4 g/dL Final 05/23/2024 15.7 12.4 - 17.4 g/dL Final 05/22/2024 14.2 12.4 - 17.4 g/dL Final Plt Count Date Value Ref Range Status 05/24/2024 198 160 - 381 10*3/uL Final 05/24/2024 169 160 - 381 10*3/uL Final 05/23/2024 155 (L) 160 - 381 10*3/uL Final 05/22/2024 194 160 - 381 10*3/uL Final INR Date Value Ref Range Status 05/24/2024 1.20 (H) 0.85 - 1.17 Final No results found for: "PROTIME" PTT Date Value Ref Range Status 05/24/2024 47.4 (H) 22.9 - 35.8 Seconds Final Warfarin Dose Administered: 05/24: warfarin = 0.5mg ordered Bridging Agents Administered: Lovenox 135 mg q12h - dose changed based off of patients updated weight as of 05/25 Major Drug Interactions:Medications that increase INR effects: Amiodarone, multivitamin Medications that decrease INR effects: lasix Medications that increase bleeding risk: Lovenox Assessment and Plan:INR continues a downward trend. INR for today is 1.06 (down from 1.18 yesterday). Plan to: change warfarin dose to 3mg qday Will order daily INRs and adjust warfarin dosing accordingly until INR is stable in the therapeutic range. INR daily through 06/23. Will continue bridging with Lovenox until INR is in the therapeutic range. Will monitor for signs and symptoms of bleeding. Thank you for the consult. We will continue to follow the patient. Pleasecontact pharmacy at [phone] with any questions. * Maryse Mcpherson MD - 05/25/2024 5:19 PM CDT Images from the original note were not included. HOSPITALIST PROGRESS NOTE Name: Keyur Randall Sr. CSN: [id number] Admit Date: 05/16/2024 Code Status: DNR LOS: 8 days HOSPITAL COURSE: Keyur Randall Sr. is a 68 y.o. male with history of HFrEF, atrial fibrillation on AC, EtOH abuse, untreated NIHARIKA/OHS. Admitted on 05/16/2024 to ICU with decompensated HF, encephalopathy with hypercapneic respiratory failure requiring NIPPV. Aggressively diuresed and weaned to NC over few days with improvement to baseline mentation. Briefly required sedation with precedex for agitation/delirium. Transferred out of ICU 05/24. ASSESSEMENT: Active Problems: Morbid obesity (HCC) Acute hypercapnic respiratory failure (CMS/HCC) (HCC) Acute on chronic systolic (congestive) heart failure Acute metabolic encephalopathy PLAN: Acute hypercapnic respiratory failure Acute metabolic encephalopathy, resolved Suspected NIHARIKA/OHS Acute on chronic HFrEF Persistent atrial fibrillation - wean oxygen as tolerated, stable on NC. BiPAP while sleeping for suspected NIHARIKA/OHS. Home O2 eval - cardiology following appreciate recs - TTE with interval improvement in EF - Creatinine showed improvement. Renal following, resume on po diuretics as tolerated - cont metop tartrate 25 mg q6h, amio 200 mg for rate control - full dose lovenox for AF hypercoaguability, will plan to resume coumadin - cont PT/OT Hx EtOH abuse Alcoholic liver disease - now reportedly alcohol abstinent Destination after discharge: Home Anticipated or estimated discharge date: >2 midnights Electronically signed by: Maryse Mcpherson MD, 05/25/2024 SUBJECTIVE: Seen in room, Grand daughter at Bedside Doing very well. Normal MS States breathing is comfortable CC: confusion OBJECTIVE: No intake or output data in the 24 hours ending 05/25/24 1720 Physical Exam: Vitals: 05/25/24 1627 BP: Pulse: 77 Resp: 18 Temp: SpO2: 98% GEN: comfortable, alert HEENT: NCAT, extraocular movements intact NEURO: nonfocal, a&O x3 and follows commands CV: Normal rate, systolic murmur PULM: clear to ausculation, normal effort GI: soft +bs, not tender EXT: no clubbing or cyanosis, 1+ edema Hoang: none Central lines: none Data: Results from last 7 days Lab Units 05/25/24 1629 05/25/24 0601 05/25/24 0425 05/24/24 1952 05/24/24 0849 05/24/24 0356 05/23/24 0855 05/23/24 0613 05/22/24 1646 05/22/24 0457 05/21/24 0729 05/21/24 0510 WBC 10*3/uL -- -- 7.12 7.53 -- 7.04 -- 6.38 -- 8.45 -- 8.11 HEMOGLOBIN g/dL -- -- 13.7 13.7 -- 14.0 -- 15.7 -- 14.2 -- 14.8 HEMATOCRIT % -- -- 43.3 44.5 -- 44.6 -- 50.1 -- 44.1 -- 47.2 PLATELETS 10*3/uL -- -- 189 198 -- 169 -- 155* -- 194 -- 157* INR -- -- 1.18* 1.20* -- -- -- -- -- -- -- 1.68* PTT Seconds -- -- -- 47.4* -- -- -- -- -- -- -- -- MAGNESIUM mg/dL -- -- -- -- -- 2.39 -- 2.34 -- 2.17 -- 2.13 SODIUM mEq/L -- -- 133* -- -- 133* -- 137 -- 135* -- 133* POTASSIUM mEq/L -- -- 4.0 -- -- 3.8 -- 3.8 -- 3.8 -- 4.2 CHLORIDE mEq/L -- -- 97* -- -- 94* -- 95* -- 93* -- 90* CO2 mEq/L -- -- 33.3* -- -- 34.9* -- 36.7* -- 34.1* -- 32.5* BUN mg/dL -- -- 29* -- -- 24* -- 18 -- 20 -- 13 CREATININE mg/dL -- -- 1.16 -- -- 1.51* -- 1.30 -- 1.11 -- 0.99 EGFR mL/min/1.73m2 -- -- 69 -- -- 50* -- 60* -- 73 -- 83 GLUCOSE mg/dL -- -- 110* -- -- 116* -- 76 -- 74 -- 67* POC GLUCOSE mg/dL 112* < > -- -- < > -- < > -- < > -- < > -- CALCIUM mg/dL -- -- 8.4 -- -- 8.6 -- 8.5 -- 9.3 -- 9.3 PHOSPHORUS mg/dL -- -- 2.7 -- -- 3.1 -- 4.2 -- 2.8 -- 3.1 ALK PHOS U/L -- -- -- -- -- 106 -- 105 -- 112 -- 116 BILIRUBIN TOTAL mg/dL -- -- -- -- -- 0.90 -- 1.30* -- 2.00* -- 2.40* PROTEIN TOTAL g/dL -- -- -- -- -- 8.5* -- 8.8* -- 8.1 -- 9.1* ALT U/L -- -- -- -- -- 19 -- 15 -- 14 -- 13 AST U/L -- -- -- -- -- 37 -- 34 -- 22 -- 39 < > = values in this interval not displayed. Medications:Scheduled Meds:amiodarone, 200 mg, Oral, Daily enoxaparin, 1 mg/kg, Subcutaneous, q12h furosemide, 40 mg, Oral, BID [Held by provider] losartan, 25 mg, Oral, Daily metoprolol tartrate, 25 mg, Oral, q6h GREG sodium chloride, 10 mL, Intravenous, q12h GREG warfarin, 0.5 mg, Oral, Once per day on Monday warfarin, 1 mg, Oral, Once per day on Monday Continuous Infusions:PRN Meds:.PRN medications: acetaminophen, bisacodyl, calcium gluconate, dextromethorphan-guaiFENesin, diphenhydrAMINE, hydrALAZINE, ipratropium-albuterol, magnesium oxide, magnesium sulfate, magnesium sulfate, magnesium sulfate, melatonin, morphine, ondansetron, polyethylene glycol (PEG) 3350, potassium & sodium phosphates, potassium chloride, potassium chloride, potassium chloride, Potassium chloride, potassium phosphate, potassium phosphate, Insert peripheral IV AND Saline lock IV AND sodium chloride, sodium phosphate, sodium phosphate, traMADol, Warfarin Pharmacy Dosing Electronically signed by: Maryse Mcpherson MD, 05/25/2024 * Ron Gomez MD - 05/25/2024 2:04 PM CDT Images from the original note were not included. Nephrology Progress Note May 25, 2024 Renal Assessment:1. Acute kidney injury secondary to permissive diuresis (cardiorenal syndrome).improved. 2. Acute respiratory failure secondary to pulmonary edema, improved. 3. Acute on chronic systolic heart failure 4. Morbid obesity 5. Acute encephalopathy, improved 6. Leg edema secondary to CHF, has no significant proteinuria. Plan: 1. Continue furosemide 40 mg twice a day 2. Continue to monitor electrolytes and azotemia. Reason for consult: Acute kidney injury Subjective:He is not complaining of chest pain or shortness of breath. He has a spontaneous urination. ROS:Cardiovascular: No chest pain , No palpitation Pulmonary : No cough, no hemoptysis Gastrointestinal : No nausea, No vomiting, No diarrhea : No dysuria Medications: reviewed.amiodarone, 200 mg, Oral, Daily enoxaparin, 1 mg/kg, Subcutaneous, q12h furosemide, 40 mg, Oral, BID [Held by provider] losartan, 25 mg, Oral, Daily metoprolol tartrate, 25 mg, Oral, q6h GREG sodium chloride, 10 mL, Intravenous, q12h GREG warfarin, 0.5 mg, Oral, Once per day on Monday warfarin, 1 mg, Oral, Once per day on Monday Medications given as infusions: Medications given as PRN:PRN medications: acetaminophen, bisacodyl, calcium gluconate, dextromethorphan-guaiFENesin, diphenhydrAMINE, hydrALAZINE, ipratropium-albuterol, magnesium oxide, magnesium sulfate, magnesium sulfate, magnesium sulfate, melatonin, morphine, ondansetron, polyethylene glycol (PEG) 3350, potassium & sodium phosphates, potassium chloride, potassium chloride, potassium chloride, Potassium chloride, potassium phosphate, potassium phosphate, Insert peripheral IV AND Saline lock IV AND sodium chloride, sodium phosphate, sodium phosphate, traMADol, Warfarin Pharmacy Dosing Exam:Blood pressure (!) 113/59, pulse 66, temperature 37.1 ?C (98.7 ?F), resp. rate 18, height 1.803 m (5' 11"), weight (!) 139 kg (306 lb 7 oz), SpO2 97%. Body mass index is 42.74 kg/m?. Intake/Output: Intake/Output Summary (Last 24 hours) at 05/25/2024 1404Last data filed at 05/24/2024 1500 Gross per 24 hour Intake -- Output 360 ml Net -360 ml HEENT: TARIQ, anicteric scleraNeck: supple Chest/Lungs: bilateral air entry Heart: Regular rhythm Abdomen: soft, non tender Extremities: Presence of chronic edema Patient Active Problem ListDiagnosis Morbid obesity (HCC) BMI 40.0-44.9, adult (HCC) New onset atrial fibrillation (CMS/HCC) (HCC) Hypertension Acute hypercapnic respiratory failure (CMS/HCC) (HCC) Other heart failure Acute on chronic systolic (congestive) heart failure Acute hypoxic respiratory failure (HCC) Acute metabolic encephalopathy LABORATORY (Reviewed):Results from last 7 days Lab Units 05/25/2442405/24/242 05/24/24 0356 WBC 10*3/uL 7.12 7.53 7.04 HEMOGLOBIN g/dL 13.7 13.7 14.0 HEMATOCRIT % 43.3 44.5 44.6 MCV fL 97.5* 97.2* 98.7* PLATELETS 10*3/uL 189 198 169 Results from last 7 daysLab Units 05/25/24 1119 05/25/24 0601 05/25/2442405/24/24 0849 05/24/246 05/23/24 0855 05/23/24 0613 SODIUM mEq/L -- -- 133* -- 133* -- 137 POTASSIUM mEq/L -- -- 4.0 -- 3.8 -- 3.8 CHLORIDE mEq/L -- -- 97* -- 94* -- 95* CO2 mEq/L -- -- 33.3* -- 34.9* -- 36.7* BUN mg/dL -- -- 29* -- 24* -- 18 CREATININE mg/dL -- -- 1.16 -- 1.51* -- 1.30 EGFR mL/min/1.73m2 -- -- 69 -- 50* -- 60* CALCIUM mg/dL -- -- 8.4 -- 8.6 -- 8.5 PROTEIN TOTAL g/dL -- -- -- -- 8.5* -- 8.8* BILIRUBIN TOTAL mg/dL -- -- -- -- 0.90 -- 1.30* ALK PHOS U/L -- -- -- -- 106 -- 105 ALT U/L -- -- -- -- 19 -- 15 AST U/L -- -- -- -- 37 -- 34 GLUCOSE mg/dL -- -- 110* -- 116* -- 76 POC GLUCOSE mg/dL 104* < > -- < > -- < > -- ALBUMIN g/dL -- -- 2.8* -- 2.9* -- 3.2* < > = values in this interval not displayed. A total of >35 minutes were spent in evaluation and management for patient today, exclusive of any procedures. Time spent included pre and post chart review, labs/imaging review, medication review, cut order hand, and [id number] time with the patient. Case was also discussed with primary and RN in coordination of care. Ron Gomez MD[facility] Office: * Sylvester Reed MD - 05/25/2024 12:58 PM CDT Images from the original note were not included. CARDIOLOGY PROGRESS NOTE 05/25/2024 Name: Keyur Randall Sr. : 1955 AGE: 68 y.o. Admit Date: 05/16/2024 SUBJECTIVE: Patient is in AF with rates in the 60s Feels like he near his baseline Breathing comfortably per patient OBJECTIVE: Vitals: 05/25/24 0754 05/25/24 1116 05/25/24 1117 05/25/24 1117 BP: (!) 113/59 Pulse: 63 66 Resp: 17 18 Temp: 37.1 ?C (98.7 ?F) SpO2: 98% 97% Visit Vitals BP (!) 113/59 Pulse 66 Temp 37.1 ?C (98.7 ?F) Resp 18 Ht 1.803 m (5' 11") Wt (!) 139 kg (306 lb 7 oz) SpO2 97% BMI 42.74 kg/m? Smoking Status Never BSA 2.64 m? Intake/Output Summary (Last 24 hours) at 05/25/2024 1259 Last data filed at 05/24/2024 1500 Gross per 24 hour Intake -- Output 360 ml Net -360 ml GEN: Alert, awake, comfortable Heart: irregular irregular Lungs: CTAB GI: Soft + BS SKIN: no rash or petechie DATA: Results from last 7 days Lab Units 05/25/24 1119 05/25/24 0601 05/25/24 0425 05/24/2405/24/25 0849 05/24/24 0356 05/23/24 0855 05/23/24 0613 05/22/24 1646 05/22/24 0457 05/21/24 0729 05/21/24 0510 WBC 10*3/uL -- -- 7.12 7.53 -- 7.04 -- 6.38 -- 8.45 -- 8.11 HEMOGLOBIN g/dL -- -- 13.7 13.7 -- 14.0 -- 15.7 -- 14.2 -- 14.8 HEMATOCRIT % -- -- 43.3 44.5 -- 44.6 -- 50.1 -- 44.1 -- 47.2 PLATELETS 10*3/uL -- -- 189 198 -- 169 -- 155* -- 194 -- 157* INR -- -- 1.18* 1.20* -- -- -- -- -- -- -- 1.68* PTT Seconds -- -- -- 47.4* -- -- -- -- -- -- -- -- MAGNESIUM mg/dL -- -- -- -- -- 2.39 -- 2.34 -- 2.17 -- 2.13 SODIUM mEq/L -- -- 133* -- -- 133* -- 137 -- 135* -- 133* POTASSIUM mEq/L -- -- 4.0 -- -- 3.8 -- 3.8 -- 3.8 -- 4.2 CHLORIDE mEq/L -- -- 97* -- -- 94* -- 95* -- 93* -- 90* CO2 mEq/L -- -- 33.3* -- -- 34.9* -- 36.7* -- 34.1* -- 32.5* BUN mg/dL -- -- 29* -- -- 24* -- 18 -- 20 -- 13 CREATININE mg/dL -- -- 1.16 -- -- 1.51* -- 1.30 -- 1.11 -- 0.99 EGFR mL/min/1.73m2 -- -- 69 -- -- 50* -- 60* -- 73 -- 83 GLUCOSE mg/dL -- -- 110* -- -- 116* -- 76 -- 74 -- 67* POC GLUCOSE mg/dL 104* < > -- -- < > -- < > -- < > -- < > -- CALCIUM mg/dL -- -- 8.4 -- -- 8.6 -- 8.5 -- 9.3 -- 9.3 PHOSPHORUS mg/dL -- -- 2.7 -- -- 3.1 -- 4.2 -- 2.8 -- 3.1 ALK PHOS U/L -- -- -- -- -- 106 -- 105 -- 112 -- 116 BILIRUBIN TOTAL mg/dL -- -- -- -- -- 0.90 -- 1.30* -- 2.00* -- 2.40* PROTEIN TOTAL g/dL -- -- -- -- -- 8.5* -- 8.8* -- 8.1 -- 9.1* ALT U/L -- -- -- -- -- 19 -- 15 -- 14 -- 13 AST U/L -- -- -- -- -- 37 -- 34 -- 22 -- 39 < > = values in this interval not displayed. No results found for: "TROPONINT" Natriuretic Peptide B Date Value Ref Range Status 05/16/2024 268 (H) 0 - 100 pg/mL Final Comment: Elevated results are in line with increasing severity of congestive heart failure. Minor elevations between 100 and 300 may be seen with Myocardial Ischemia, Sodium retaining drugs, and compensated/treated heart failure. MEDICATIONS: Scheduled Meds:amiodarone, 200 mg, Oral, Daily enoxaparin, 1 mg/kg, Subcutaneous, q12h furosemide, 40 mg, Oral, BID [Held by provider] losartan, 25 mg, Oral, Daily metoprolol tartrate, 25 mg, Oral, q6h GREG sodium chloride, 10 mL, Intravenous, q12h GREG warfarin, 0.5 mg, Oral, Once per day on Monday warfarin, 1 mg, Oral, Once per day on Monday Continuous Infusions:PRN Meds:.PRN medications: acetaminophen, bisacodyl, calcium gluconate, dextromethorphan-guaiFENesin, diphenhydrAMINE, hydrALAZINE, ipratropium-albuterol, magnesium oxide, magnesium sulfate, magnesium sulfate, magnesium sulfate, melatonin, morphine, ondansetron, polyethylene glycol (PEG) 3350, potassium & sodium phosphates, potassium chloride, potassium chloride, potassium chloride, Potassium chloride, potassium phosphate, potassium phosphate, Insert peripheral IV AND Saline lock IV AND sodium chloride, sodium phosphate, sodium phosphate, traMADol, Warfarin Pharmacy Dosing ASSESSMENT AND PLAN: [facility] Raiser Lockstitch: Dr. 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 EF 40-45% by TTE in 01/2024, now recovered to 55-60% in April 2024 On lasix 40mg po BID, slow diuresis Patient feels back to his baseline > Continue current dose of lasix Atrial fibrillation, longstanding persistent:Rate is currently controlled in the 60s - Rate control: Metoprolol tartrate 25 mg Q6 hours, - Rhythm control: Amiodarone 200 mg daily Hypercoagulable [id number] score - 4 - Anticoagulation: Lovenox 1 mg/kg subcutaneous Q12 - start coumadin from today: [employer] consult placed. AlcoholismWent into withdrawals during hospitalization in 01/2024 at Pre-DMDietary changes and weight loss * Dheeraj Weber PharmD - 05/25/2024 12:29 PM CDT Warfarin Dosing Consult Note Consulting Provider: Dr. Urbano Redd Indication of use: Atrial fibrillation or flutter INR Target Range: 2-3 Planned Duration: lifelong Home Regimen: 0.5mg daily Monday-Monday; 1mg Monday and Monday. Labs Hgb Date Value Ref Range Status 05/24/2024 13.7 12.4 - 17.4 g/dL Final 05/24/2024 14.0 12.4 - 17.4 g/dL Final 05/23/2024 15.7 12.4 - 17.4 g/dL Final 05/22/2024 14.2 12.4 - 17.4 g/dL Final Plt Count Date Value Ref Range Status 05/24/2024 198 160 - 381 10*3/uL Final 05/24/2024 169 160 - 381 10*3/uL Final 05/23/2024 155 (L) 160 - 381 10*3/uL Final 05/22/2024 194 160 - 381 10*3/uL Final INR Date Value Ref Range Status 05/24/2024 1.20 (H) 0.85 - 1.17 Final No results found for: "PROTIME" PTT Date Value Ref Range Status 05/24/2024 47.4 (H) 22.9 - 35.8 Seconds Final Warfarin Dose Administered: 05/24: warfarin = 0.5mg ordered Bridging Agents Administered: Lovenox 135 mg q12h - dose changed based off of patients updated weight as of 05/25 Major Drug Interactions:Medications that increase INR effects: Amiodarone, multivitamin Medications that decrease INR effects: lasix Medications that increase bleeding risk: Lovenox Assessment and Plan:INR is 1.18: subtherapeutic today Plan to: restart home dose 0.5mg Monday-Monday and 1mg Monday and Monday based on INR trend. Will order daily INRs and adjust warfarin dosing accordingly until INR is stable in the therapeutic range. INR daily through 06/23. Will continue bridging with Lovenox until INR is in the therapeutic range. Will monitor for signs and symptoms of bleeding. Thank you for the consult. We will continue to follow the patient. Pleasecontact pharmacy at [phone] with any questions. Dheeraj Weber PharmD, BCPSExt. [phone] or secure chat * Tabatha Yañez PharmD - 05/24/2024 9:02 PM CDT Warfarin Dosing Consult Note Consulting Provider: Dr. Urbano Redd Indication of use: Atrial fibrillation or flutter INR Target Range: 2-3 Planned Duration: lifelong Home Regimen: 0.5mg daily Monday-Monday; 1mg Monday and Monday. Labs Hgb Date Value Ref Range Status 05/24/2024 13.7 12.4 - 17.4 g/dL Final 05/24/2024 14.0 12.4 - 17.4 g/dL Final 05/23/2024 15.7 12.4 - 17.4 g/dL Final 05/22/2024 14.2 12.4 - 17.4 g/dL Final Plt Count Date Value Ref Range Status 05/24/2024 198 160 - 381 10*3/uL Final 05/24/2024 169 160 - 381 10*3/uL Final 05/23/2024 155 (L) 160 - 381 10*3/uL Final 05/22/2024 194 160 - 381 10*3/uL Final INR Date Value Ref Range Status 05/24/2024 1.20 (H) 0.85 - 1.17 Final No results found for: "PROTIME" PTT Date Value Ref Range Status 05/24/2024 47.4 (H) 22.9 - 35.8 Seconds Final Warfarin Dose Administered: 05/24: warfarin = 0.5mg ordered Bridging Agents Administered: Lovenox 150mg q12h Major Drug Interactions:Medications that increase INR effects: Amiodarone, multivitamin Medications that decrease INR effects: lasix Medications that increase bleeding risk: Lovenox Assessment and Plan:INR is 1.20: subtherapeutic today, 05/24. Plan to: restart home dose 0.5mg Monday-Monday and 1mg Monday and Monday based on INR trend. Will order daily INRs and adjust warfarin dosing accordingly until INR is stable in the therapeutic range. INR daily through 06/23. Will continue bridging with Lovenox until INR is in the therapeutic range. Will monitor for signs and symptoms of bleeding. Thank you for the consult. We will continue to follow the patient. Pleasecontact pharmacy at [phone] with any questions. Jen BanuelosD * Al Maloney MD - 05/24/2024 3:03 PM CDT Images from the original note were not included. HOSPITALIST PROGRESS NOTE Name: Keyur Randall . CSN: [id number] Admit Date: 05/16/2024 Code Status: None Specified=Full Code LOS: 7 days HOSPITAL COURSE: Keyur Randall Sr. is a 68 y.o. male with history of HFrEF, atrial fibrillation on AC, EtOH abuse, untreated NIHARIKA/OHS. Admitted on 05/16/2024 to ICU with decompensated HF, encephalopathy with hypercapneic respiratory failure requiring NIPPV. Aggressively diuresed and weaned to NC over few days with improvement to baseline mentation. Briefly required sedation with precedex for agitation/delirium. Transferred out of ICU 05/24. ASSESSEMENT: Active Problems: Morbid obesity (HCC) Acute hypercapnic respiratory failure (CMS/HCC) (HCC) Acute on chronic systolic (congestive) heart failure Acute metabolic encephalopathy PLAN: Acute hypercapnic respiratory failure Acute metabolic encephalopathy, resolved Suspected NIHARIKA/OHS Acute on chronic HFrEF Persistent atrial fibrillation - wean oxygen as tolerated, stable on 3L NC. BiPAP while sleeping for suspected NIHARIKA/OHS. Home O2 eval - cardiology following appreciate recs - TTE with interval improvement in EF - diuretic held as appears near euvolemic and creatinine bumped. Renal following, resume on po diuretics as tolerated - cont metop tartrate 25 mg q6h, amio 200 mg for rate control - full dose lovenox for AF hypercoaguability, will plan to resume coumadin - cont PT/OT Hx EtOH abuse Alcoholic liver disease - now reportedly alcohol abstinent Destination after discharge: Home Anticipated or estimated discharge date: >2 midnights Electronically signed by: Al Maloney MD, 05/24/2024 SUBJECTIVE: Comfortable this afternoon, no acute issues. Lucid and answering all questions appropriately CC: confusion OBJECTIVE: Intake/Output Summary (Last 24 hours) at 05/24/2024 1504 Last data filed at 05/24/2024 0600 Gross per 24 hour Intake -- Output 400 ml Net -400 ml Physical Exam: Vitals: 05/24/24 1300 BP: (!) 95/49 Pulse: 74 Resp: 13 Temp: SpO2: 97% GEN: comfortable, alert HEENT: NCAT, extraocular movements intact NEURO: nonfocal, answers questions and follows commands CV: RRR, no murmur PULM: clear to ausculation, normal effort GI: soft +bs, not tender EXT: no clubbing or cyanosis, no edema Hoang: none Central lines: none Data: Results from last 7 days Lab Units 05/24/24 1314 05/24/24 0849 05/24/24 0356 05/23/24 0855 05/23/24 0613 05/22/24 1646 05/22/24 0457 05/21/24 0729 05/21/24 0510 05/19/24 0833 05/19/24 0410 WBC 10*3/uL -- -- 7.04 -- 6.38 -- 8.45 -- 8.11 < > 6.31 HEMOGLOBIN g/dL -- -- 14.0 -- 15.7 -- 14.2 -- 14.8 < > 12.4 HEMATOCRIT % -- -- 44.6 -- 50.1 -- 44.1 -- 47.2 < > 40.4 PLATELETS 10*3/uL -- -- 169 -- 155* -- 194 -- 157* < > 156* INR -- -- -- -- -- -- -- -- 1.68* -- 2.28* MAGNESIUM mg/dL -- -- 2.39 -- 2.34 -- 2.17 -- 2.13 < > 1.94 SODIUM mEq/L -- -- 133* -- 137 -- 135* -- 133* < > 139 POTASSIUM mEq/L -- -- 3.8 -- 3.8 -- 3.8 -- 4.2 < > 4.3 CHLORIDE mEq/L -- -- 94* -- 95* -- 93* -- 90* < > 100 CO2 mEq/L -- -- 34.9* -- 36.7* -- 34.1* -- 32.5* < > 33.7* BUN mg/dL -- -- 24* -- 18 -- 20 -- 13 < > 29* CREATININE mg/dL -- -- 1.51* -- 1.30 -- 1.11 -- 0.99 < > 0.94 EGFR mL/min/1.73m2 -- -- 50* -- 60* -- 73 -- 83 < > 89 GLUCOSE mg/dL -- -- 116* -- 76 -- 74 -- 67* < > 90 POC GLUCOSE mg/dL 119* < > -- < > -- < > -- < > -- < > -- CALCIUM mg/dL -- -- 8.6 -- 8.5 -- 9.3 -- 9.3 < > 7.0* PHOSPHORUS mg/dL -- -- 3.1 -- 4.2 -- 2.8 -- 3.1 < > 2.9 ALK PHOS U/L -- -- 106 -- 105 -- 112 -- 116 < > -- BILIRUBIN TOTAL mg/dL -- -- 0.90 -- 1.30* -- 2.00* -- 2.40* < > -- PROTEIN TOTAL g/dL -- -- 8.5* -- 8.8* -- 8.1 -- 9.1* < > -- ALT U/L -- -- 19 -- 15 -- 14 -- 13 < > -- AST U/L -- -- 37 -- 34 -- 22 -- 39 < > -- < > = values in this interval not displayed. Medications:Scheduled Meds:amiodarone, 200 mg, Oral, Daily enoxaparin, 1 mg/kg, Subcutaneous, q12h [Held by provider] furosemide, 40 mg, Intravenous, q12h [Held by provider] losartan, 25 mg, Oral, Daily metoprolol tartrate, 25 mg, Oral, q6h GREG sodium chloride, 10 mL, Intravenous, q12h GREG Continuous Infusions:PRN Meds:.PRN medications: acetaminophen, bisacodyl, calcium gluconate, dextromethorphan-guaiFENesin, diphenhydrAMINE, hydrALAZINE, ipratropium-albuterol, magnesium oxide, magnesium sulfate, magnesium sulfate, magnesium sulfate, melatonin, morphine, ondansetron, polyethylene glycol (PEG) 3350, potassium & sodium phosphates, potassium chloride, potassium chloride, potassium chloride, Potassium chloride, potassium phosphate, potassium phosphate, Insert peripheral IV AND Saline lock IV AND sodium chloride, sodium phosphate, sodium phosphate, traMADol Electronically signed by: Al Maloney MD, 05/24/2024 * Kandy Theodore MD - 05/24/2024 10:49 AM CDT CRITICAL CARE MEDICINE PROGRESS NOTE HPI Keyur Randall Sr. is a 68 y.o. male presenting with PMH HFrEF, A-fib on Coumadin, EtOH abuse, NIHARIKA/OHS, previously admitted for hypercapnic respiratory failure and discharged with pulmonary follow-up, presented for AMS and visual/auditory hallucinations, AOx3 in ED but required increasing O2 support with VBG showing pCO2 94 thus started on BiPAP. 05/17 -hypercapnic respiratory failure on BiPAP with some level of confusion. pCO2 94, monitoring.. 05/19 HFNC 50% alternating with HFNC 05/20 afebrile, WBC 5k, awakes, oriented, less confused, on NIPPV/HFNC on precedex, weaning, negative 6L in 24h, lasix scheduled, adding diamox 05/21 afebrile, WBC 8k, oriented x 3, off precedex, HFNC 20/50%, taking PO on lasix/diamox scheduled, negative 6L in 24h, cardiology following 4/2: on BIPAP, and agitated, seroquel was added for agitation 05/23: improving mental status. Off bIPAP during day, used at night of OHS/NIHARIKA, diuresis decreased Today am: awake and alert, weaned to NC O2 Objective Vital signs in last 24 hours: Temp: [36.6 ?C (97.9 ?F)-37.5 ?C (99.5 ?F)] 37.1 ?C (98.8 ?F) Heart Rate: [69-122] 73 Resp: [14-30] 17 BP: (96-138)/(46-117) 119/61 FiO2 (%): [30 %-50 %] 30 % PHYSICAL EXAM: General: very obese, awake and alert, following commands CV: S1S2, Resp: CTAB, no wheezes Abd: soft, non distended, +BS Ext: trace edema Skin: stasis dermatitis venous stasis changes on legs, Neuro: awake and alert, no gross focal deficits CURRENT MEDS amiodarone, 200 mg, Oral, Daily enoxaparin, 1 mg/kg, Subcutaneous, q12h [Held by provider] furosemide, 40 mg, Intravenous, q12h [Held by provider] losartan, 25 mg, Oral, Daily metoprolol tartrate, 25 mg, Oral, q6h GREG QUEtiapine, 50 mg, Oral, Nightly sodium chloride, 10 mL, Intravenous, q12h GREG dexmedeTOMIDine, 0.2-1.5 mcg/kg/hr PRN medications: calcium gluconate, diphenhydrAMINE, haloperidol lactate, LORazepam, magnesium sulfate, potassium & sodium phosphates OR potassium & sodium phosphates, potassium chloride OR potassium chloride OR potassium chloride OR Potassium chloride, QUEtiapine, Insert peripheral IV AND Saline lock IV AND sodium chloride, sodium phosphates 45 mmol in sodium chloride 0.9 % 100 mL IVPB Relevant Imaging and Results I have reviewed all labs. Pertinent findings: creatinine up trending, now 1.5 from 1.1 on 05/22. Na is 133, CO2 35 Wbc 7.04, Hgb 14, Plt 169 Assessment & Plan Acute hypercapnic respiratory failure (CMS/HCC) (HCC) Acute on chronic systolic (congestive) heart failure Morbid obesity (HCC) Acute metabolic encephalopathy # Acute on chronic HFrEF--> acute phase resolved #Acute on chronic hypercapnic and hypoxic respiratory failure--> acute phase now resolved #Atrial fibrillation #OHS #Acute metabolic encephalopathy with hyperactive delirium--> resolved #DILLON #Moderate to severe Aortic stenosis Plan: -transitioned from high flow o2 to NC o2 4-8L/min, goal spo2 > 88% -has adequately diuresed and cr increasing--> furosemide held, consulted nephrology -Nocturnal BIPAP for OHS/NIHARIKA- -PT and ambulation or atleast out of bed today -continuing amiodarone 200 mg daily for rate control of Afib, and anticoagulation with enoxaparin 150 mg subcutaneous Q 12h -GDMT for HF: metoprolol 25 mg q 6hr, cardiology following, addition of other agents as per cardiology -encephalopathy and delirium has resolved--> discontinued Seroquel and Precedex -Heart heatlhy diet -DVT prophylaxis: on anticoagulation with enoxparin -Transfer to 7E with telemetry LOS: 7 days Disposition: 7E with telemetry Kandy Theodore MD * Yael Edwards PTA - 05/24/2024 10:41 AM CDT Encounter Note Patient Name: Keyur Randall Sr. Today's Date: 05/24/2024 Missed Treatment Time and Reason Attempted to treat pt, nurse reported pt c/o fatigue and is requesting to rest for now, will follow up with pt next therapy session Yael Edwards PTA * HEMA Schafer - 05/24/2024 10:27 AM CDT OT Encounter Note Patient Name: Keyur Randall Sr. Today's Date: 05/24/2024 Missed Treatment Time and Reason 10:27 - 10:30 Refused "No, I just ate maybe later" per pt Will follow up as time permits HEMA Schafer * Urbano Redd MD - 05/24/2024 7:41 AM CDT Images from the original note were not included. CARDIOLOGY PROGRESS NOTE 05/24/24 Name: Keyur Randall Sr. : 1955 AGE: 68 y.o. Admit Date: 05/16/2024 SUBJECTIVE: Worsening contraction alkalosis now with acute kidney injury, diamox and furosemide held as a result. He is clinically doing better and is seen eating a meal today, and is oriented to place. OBJECTIVE: Intake/Output Summary (Last 24 hours) at 05/24/2024 0741 Last data filed at 05/24/2024 0600 Gross per 24 hour Intake 300 ml Output 1300 ml Net -1000 ml Physical Exam: Visit Vitals BP (!) 105/52 Pulse 76 Temp 36.9 ?C (98.4 ?F) (Axillary) Resp 16 Ht 1.803 m (5' 11") Wt (!) 136 kg (300 lb 0.7 oz) SpO2 99% BMI 41.85 kg/m? Smoking Status Never BSA 2.61 m? GEN: Alert, awake, comfortable, on 2-3L of oxygen HEENT: Atraumatic, PERRL, EOMI, moist mucous membranes Heart: RRR, S1 S2 No Murmur Pulses: bilateral radial and DP 2+ Lungs: Breath sounds clear to auscultation, no use of accessory muscles, no crackles or wheezes GI: Soft + BS, abdomen not distended or tender EXT: no clubbing, cyanosis or edema SKIN: no rash or petechie Data: Results from last 7 days Lab Units 05/24/24 0356 05/23/24 0855 05/23/24 0613 05/22/24 1646 05/22/24 0457 05/21/24 0729 05/21/24 0510 05/19/24 0833 05/19/24 0410 WBC 10*3/uL 7.04 -- 6.38 -- 8.45 -- 8.11 < > 6.31 HEMOGLOBIN g/dL 14.0 -- 15.7 -- 14.2 -- 14.8 < > 12.4 HEMATOCRIT % 44.6 -- 50.1 -- 44.1 -- 47.2 < > 40.4 PLATELETS 10*3/uL 169 -- 155* -- 194 -- 157* < > 156* INR -- -- -- -- -- -- 1.68* -- 2.28* MAGNESIUM mg/dL 2.39 -- 2.34 -- 2.17 -- 2.13 < > 1.94 SODIUM mEq/L 133* -- 137 -- 135* -- 133* < > 139 POTASSIUM mEq/L 3.8 -- 3.8 -- 3.8 -- 4.2 < > 4.3 CHLORIDE mEq/L 94* -- 95* -- 93* -- 90* < > 100 CO2 mEq/L 34.9* -- 36.7* -- 34.1* -- 32.5* < > 33.7* BUN mg/dL 24* -- 18 -- 20 -- 13 < > 29* CREATININE mg/dL 1.51* -- 1.30 -- 1.11 -- 0.99 < > 0.94 EGFR mL/min/1.73m2 50* -- 60* -- 73 -- 83 < > 89 GLUCOSE mg/dL 116* -- 76 -- 74 -- 67* < > 90 POC GLUCOSE -- < > -- < > -- < > -- < > -- CALCIUM mg/dL 8.6 -- 8.5 -- 9.3 -- 9.3 < > 7.0* PHOSPHORUS mg/dL 3.1 -- 4.2 -- 2.8 -- 3.1 < > 2.9 ALK PHOS U/L 106 -- 105 -- 112 -- 116 < > -- BILIRUBIN TOTAL mg/dL 0.90 -- 1.30* -- 2.00* -- 2.40* < > -- PROTEIN TOTAL g/dL 8.5* -- 8.8* -- 8.1 -- 9.1* < > -- ALT U/L 19 -- 15 -- 14 -- 13 < > -- AST U/L 37 -- 34 -- 22 -- 39 < > -- < > = values in this interval not displayed. Lab Results Component Value Date CK Total 119 02/14/2024 HS Troponin I <3 05/16/2024 Natriuretic Peptide B Date Value Ref Range Status 05/16/2024 268 (H) 0 - 100 pg/mL Final Comment: Elevated results are in line with increasing severity of congestive heart failure. Minor elevations between 100 and 300 may be seen with Myocardial Ischemia, Sodium retaining drugs, and compensated/treated heart failure. Medications: Scheduled Meds: amiodarone, 200 mg, Oral, Daily enoxaparin, 1 mg/kg, Subcutaneous, q12h folic acid, 1 mg, Oral, Daily [Held by provider] furosemide, 40 mg, Intravenous, q12h [Held by provider] losartan, 25 mg, Oral, Daily metoprolol tartrate, 25 mg, Oral, q6h GREG multivitamin, 1 tablet, Oral, Daily QUEtiapine, 50 mg, Oral, Nightly sodium chloride, 10 mL, Intravenous, q12h GREG thiamine, 100 mg, Oral, Daily Images/Studies:Encounter Date: 05/16/24 XR chest 1 view Narrative EXAM: Chest x-ray, 1 view(s). CLINICAL HX:intubated . Age: 68 years.Gender: Male. TECHNIQUE:As above. Facility: [facility]. COMPARISON:Chest x-ray: May 16, 2024. Impression1. Support apparatus: None. 2. Enlarged cardiac silhouette with worsened pulmonary edema. 3. No pneumothorax. Electronically signed by: Kirk Barker MD 05/18/2024 05:17 AM CDT RP Cardiac Studies: Encounter Date: 05/16/24 ECG 12 lead Result Value Ventricular Rate 75 Atrial Rate 234 QRS Duration 104 QT/QTc 394 QTc Calculation 439 R-Garland 91 T-Garland 25 Impression ATRIAL FIBRILLATION RIGHTWARD AXIS ABNORMAL ECG Confirmed by Virgilio Tello ([id number]) on 05/20/2024 8:23:32 AM Transthoracic echo (TTE) complete 05/20/2024 Interpretation SummaryLeft Ventricle: Normal wall motion of left ventricle. Normal systolic function with an estimated EF of 55 - 60%. Aortic Valve: Aortic valve is trileaflet. Moderately calcified left, right and noncoronary leaflets in the aortic valve. Mild to moderate aortic stenosis present. Mitral Valve: Mild mitral regurgitation present. Tricuspid Valve: Mild tricuspid regurgitation present. Transthoracic echo (TTE) complete 02/15/2024 Interpretation SummaryLeft Ventricle: Left ventricle size is normal. Findings consistent with mild concentric hypertrophy. Reduced systolic function with an estimated EF of 40 - 45%. Right Ventricle: Right ventricle is moderately dilated. Low normal systolic function in the right ventricle. Left Atrium: Left atrium is mildly dilated. Aortic Valve: Aortic valve is trileaflet. Moderately thickened leaflets in the aortic valve. Moderately calcified leaflets in the aortic valve. Moderate to severe aortic stenosis present. Mitral Valve: Mildly thickened leaflets in the mitral valve. Moderate mitral regurgitation present. Tricuspid Valve: Mild tricuspid regurgitation present. The estimated right ventricular systolic pressure, based on a presumed right atrial pressure of 10 mmHg, is 36 mmHg. Mild pulmonary hypertension present. No pericardial effusion present. ASSESSEMENT and PLAN: Patient Active Problem List Diagnosis Morbid obesity (HCC) BMI 40.0-44.9, adult (HCC) New onset atrial fibrillation (CMS/HCC) (HCC) Hypertension Acute hypercapnic respiratory failure (CMS/HCC) (HCC) Other heart failure Acute on chronic systolic (congestive) heart failure Acute hypoxic respiratory failure (HCC) Acute metabolic encephalopathy [facility] Arm[facility] Raiser Lockstitch: Dr. 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 EF 40-45% by TTE in 01/2024, now recovered to 55-60% in April 2024 GDMT: - BB: Metoprolol tartrate 25 mg Q6 hours, - ARB: held, resume as BP normalizes. - Diuresis: held today due to DILLON- resume oral furosemide 40 mg Q12 tomorrow if Cr is stable. Now requiring minimal oxygen, previously on vapotherm. 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 AlcoholismWent into withdrawals during hospitalization in 01/2024 at Pre-DMDietary changes and weight loss Urbano Redd MD [facility]ardi[facility] Disease [facility] * Urbano Redd MD - 05/23/2024 6:07 PM CDT Images from the original note were not included. CARDIOLOGY PROGRESS NOTE 05/23/24 Name: Keyru Randall : 1955 AGE: 68 y.o. Admit Date: 05/16/2024 SUBJECTIVE: He is sleeping and he remains on BiPAP. He continues to diurese well. He had breakfast this morning. OBJECTIVE: Intake/Output Summary (Last 24 hours) at 05/23/2024 1808 Last data filed at 05/23/2024 1500 Gross per 24 hour Intake 300 ml Output 1750 ml Net -1450 ml Physical Exam: Visit Vitals BP 115/73 (BP Location: Left arm, Patient Position: Lying) Pulse (!) 108 Temp 36.6 ?C (97.9 ?F) (Axillary) Resp 21 Ht 1.803 m (5' 11") Wt (!) 136 kg (300 lb 0.7 oz) SpO2 100% BMI 41.85 kg/m? Smoking Status Never BSA 2.61 m? GEN: Sleepy, on BiPAP HEENT: Atraumatic, PERRL, EOMI, moist mucous membranes Heart: irregular, S1 S2 No Murmur Pulses: bilateral radial and DP 2+ Lungs: Breath sounds clear to auscultation, no use of accessory muscles, no crackles or wheezes GI: Soft + BS, abdomen not distended or tender EXT: no clubbing, cyanosis or edema SKIN: no rash or petechie Data: Results from last 7 days Lab Units 05/23/24 1641 05/23/24 0855 05/23/24 0613 05/22/24 1646 05/22/24 0457 05/21/24 0729 05/21/24 0510 05/19/24 0833 05/19/24 0410 05/17/24 0846 05/17/24 0444 05/17/24 0216 05/16/24 1833 WBC 10*3/uL -- -- 6.38 -- 8.45 -- 8.11 < > 6.31 < > -- -- 7.88 HEMOGLOBIN g/dL -- -- 15.7 -- 14.2 -- 14.8 < > 12.4 < > -- -- 13.0 POC HEMATOCRIT, ARTERIAL (CALC) -- -- -- -- -- -- -- -- -- < > -- < > -- HEMATOCRIT % -- -- 50.1 -- 44.1 -- 47.2 < > 40.4 < > -- -- 42.8 PLATELETS 10*3/uL -- -- 155* -- 194 -- 157* < > 156* < > -- -- 162 INR -- -- -- -- -- -- 1.68* -- 2.28* -- 2.13* -- -- PTT Seconds -- -- -- -- -- -- -- -- -- -- 35.3 -- -- MAGNESIUM mg/dL -- -- 2.34 -- 2.17 -- 2.13 < > 1.94 < > -- -- -- POC SODIUM, ARTERIAL -- -- -- -- -- -- -- -- -- < > -- < > -- SODIUM mEq/L -- -- 137 -- 135* -- 133* < > 139 < > -- -- 137 POC POTASSIUM, ARTERIAL -- -- -- -- -- -- -- -- -- < > -- < > -- POTASSIUM mEq/L -- -- 3.8 -- 3.8 -- 4.2 < > 4.3 < > -- -- 5.0* POC CHLORIDE -- -- -- -- -- -- -- -- -- < > -- < > -- CHLORIDE mEq/L -- -- 95* -- 93* -- 90* < > 100 < > -- -- 98 CO2 mEq/L -- -- 36.7* -- 34.1* -- 32.5* < > 33.7* < > -- -- 33.9* BUN mg/dL -- -- 18 -- 20 -- 13 < > 29* < > -- -- 37* CREATININE mg/dL -- -- 1.30 -- 1.11 -- 0.99 < > 0.94 < > -- -- 1.89* EGFR mL/min/1.73m2 -- -- 60* -- 73 -- 83 < > 89 < > -- -- 38* POC GLUCOSE, ARTERIAL -- -- -- -- -- -- -- -- -- < > -- < > -- GLUCOSE mg/dL -- -- 76 -- 74 -- 67* < > 90 < > -- -- 96 POC GLUCOSE mg/dL 129* < > -- < > -- < > -- < > -- < > -- < > -- CALCIUM mg/dL -- -- 8.5 -- 9.3 -- 9.3 < > 7.0* < > -- -- 8.2* PHOSPHORUS mg/dL -- -- 4.2 -- 2.8 -- 3.1 < > 2.9 < > -- -- -- ALK PHOS U/L -- -- 105 -- 112 -- 116 -- -- -- -- -- 114 BILIRUBIN TOTAL mg/dL -- -- 1.30* -- 2.00* -- 2.40* -- -- -- -- -- 1.60* BILIRUBIN DIRECT mg/dL -- -- -- -- -- -- -- -- -- -- -- -- 0.7* PROTEIN TOTAL g/dL -- -- 8.8* -- 8.1 -- 9.1* -- -- -- -- -- 8.4* ALT U/L -- -- 15 -- 14 -- 13 -- -- -- -- -- 11 AST U/L -- -- 34 -- 22 -- 39 -- -- -- -- -- 19 < > = values in this interval not displayed. Lab Results Component Value Date CK Total 119 02/14/2024 HS Troponin I <3 05/16/2024 Natriuretic Peptide B Date Value Ref Range Status 05/16/2024 268 (H) 0 - 100 pg/mL Final Comment: Elevated results are in line with increasing severity of congestive heart failure. Minor elevations between 100 and 300 may be seen with Myocardial Ischemia, Sodium retaining drugs, and compensated/treated heart failure. Medications: Scheduled Meds: acetaZOLAMIDE (Diamox) 500 mg in sterile water 5 mL injection, 500 mg, Intravenous, Daily amiodarone, 200 mg, Oral, Daily enoxaparin, 1 mg/kg, Subcutaneous, q12h folic acid, 1 mg, Oral, Daily [START ON 05/24/2024] furosemide, 40 mg, Intravenous, q12h [Held by provider] losartan, 25 mg, Oral, Daily metoprolol tartrate, 25 mg, Oral, q6h [facility] multivitamin, 1 tablet, Oral, Daily QUEtiapine, 50 mg, Oral, Nightly sodium chloride, 10 mL, Intravenous, q12h GREG thiamine, 100 mg, Oral, Daily Images/Studies:Encounter Date: 05/16/24 XR chest 1 view Narrative EXAM: Chest x-ray, 1 view(s). CLINICAL HX:intubated . Age: 68 years.Gender: Male. TECHNIQUE:As above. Facility: [facility]. COMPARISON:Chest x-ray: May 16, 2024. Impression1. Support apparatus: None. 2. Enlarged cardiac silhouette with worsened pulmonary edema. 3. No pneumothorax. Electronically signed by: Kirk Barker MD 05/18/2024 05:17 AM CDT RP Cardiac Studies: Encounter Date: 05/16/24 ECG 12 lead Result Value Ventricular Rate 75 Atrial Rate 234 QRS Duration 104 QT/QTc 394 QTc Calculation 439 R-Garland 91 T-Garland 25 Impression ATRIAL FIBRILLATION RIGHTWARD AXIS ABNORMAL ECG Confirmed by Virgilio Tello ([id number]) on 05/20/2024 8:23:32 AM Transthoracic echo (TTE) complete 05/20/2024 Interpretation SummaryLeft Ventricle: Normal wall motion of left ventricle. Normal systolic function with an estimated EF of 55 - 60%. Aortic Valve: Aortic valve is trileaflet. Moderately calcified left, right and noncoronary leaflets in the aortic valve. Mild to moderate aortic stenosis present. Mitral Valve: Mild mitral regurgitation present. Tricuspid Valve: Mild tricuspid regurgitation present. Transthoracic echo (TTE) complete 02/15/2024 Interpretation SummaryLeft Ventricle: Left ventricle size is normal. Findings consistent with mild concentric hypertrophy. Reduced systolic function with an estimated EF of 40 - 45%. Right Ventricle: Right ventricle is moderately dilated. Low normal systolic function in the right ventricle. Left Atrium: Left atrium is mildly dilated. Aortic Valve: Aortic valve is trileaflet. Moderately thickened leaflets in the aortic valve. Moderately calcified leaflets in the aortic valve. Moderate to severe aortic stenosis present. Mitral Valve: Mildly thickened leaflets in the mitral valve. Moderate mitral regurgitation present. Tricuspid Valve: Mild tricuspid regurgitation present. The estimated right ventricular systolic pressure, based on a presumed right atrial pressure of 10 mmHg, is 36 mmHg. Mild pulmonary hypertension present. No pericardial effusion present. ASSESSEMENT and PLAN: Patient Active Problem List Diagnosis Morbid obesity (HCC) BMI 40.0-44.9, adult (HCC) New onset atrial fibrillation (CMS/HCC) ([facility]) Hypertension Acute hypercapnic respiratory failure (CMS/HCC) (HCC) Other heart failure Acute on chronic systolic (congestive) heart failure Acute hypoxic respiratory failure (HCC) Acute metabolic encephalopathy HPI: 68 yo male HFrEF, A-fib on Coumadin, EtOH abuse, NIHARIKA/OHS, previously admitted for hypercapnic respiratory failure [facility] [employer] Raiser Lockstitch: Dr. 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 EF 40-45% by TTE in 01/2026, now 55-60% GDMT: - BB: Metoprolol tartrate 25 mg Q6 hours, - ARB: held, resume as BP normalizes. - Diuresis: furosemide 40 mg Q12 hours as he is achieving euvolemia. > Strict I&O and daily weights > Monitor blood pressure / telemetry > Monitor electrolytes and replete > Keep Potassium > 4, Magnesium > 2 - Repeat echocardiogram with LVEF 55-60%, mild to mod AR, mild MR and TR Atrial fibrillation, longstanding persistent:Rate is currently controlled - Rate control: Metoprolol tartrate 25 mg Q6 hours, - Rhythm control: Amiodarone 200 mg daily Hypercoagulable [id number] score - 4 - Anticoagulation: Lovenox 1 mg/kg subcutaneous Q12 - start coumadin once he is able to safely maintain oral intake. AlcoholismWent into withdrawals during hospitalization in 01/2024 at Pre-DMDietary changes and weight loss Urbano Redd MD F[facility]CCardiovascular Disease [facility] * Kandy Theodore MD - 05/23/2024 12:37 PM CDT CRITICAL CARE MEDICINE PROGRESS NOTE HPI Keyur Randall . is a 68 y.o. male presenting with PMH HFrEF, A-fib on Coumadin, EtOH abuse, NIHARIKA/OHS, previously admitted for hypercapnic respiratory failure and discharged with pulmonary follow-up, presented for AMS and visual/auditory hallucinations, AOx3 in ED but required increasing O2 support with VBG showing pCO2 94 thus started on BiPAP. 05/17 -hypercapnic respiratory failure on BiPAP with some level of confusion. pCO2 94, monitoring.. 05/19 HFNC 50% alternating with HFNC 05/20 afebrile, WBC 5k, awakes, oriented, less confused, on NIPPV/HFNC on precedex, weaning, negative 6L in 24h, lasix scheduled, adding diamox 05/21 afebrile, WBC 8k, oriented x 3, off precedex, HFNC 20/50%, taking PO on lasix/diamox scheduled, negative 6L in 24h, cardiology following 05/22: on BIPAP, and agitated, seroquel was added for agitation Overnight: slept on bipap, was lethargic Objective Vital signs in last 24 hours: Temp: [36.2 ?C (97.1 ?F)-36.6 ?C (97.9 ?F)] 36.6 ?C (97.9 ?F) Heart Rate: [76-114] 110 Resp: [13-31] 15 BP: (81-130)/(45-82) 108/70 FiO2 (%): [30 %-50 %] 50 % PHYSICAL EXAM: General: very obese, somnolent but wakes up to voice CV: S1S2, irregularly irregular Resp: CTAB, no wheezes Abd: soft, non distended, +BS Ext: 1+ LE edema Skin: stasis dermatitis venous stasis changes on legs, CURRENT MEDS acetaZOLAMIDE (Diamox) 500 mg in sterile water 5 mL injection, 500 mg, Intravenous, Daily amiodarone, 200 mg, Oral, Daily enoxaparin, 1 mg/kg, Subcutaneous, q12h folic acid, 1 mg, Oral, Daily furosemide, 40 mg, Intravenous, q8h [Held by provider] losartan, 25 mg, Oral, Daily metoprolol tartrate, 25 mg, Oral, q6h GREG multivitamin, 1 tablet, Oral, Daily QUEtiapine, 50 mg, Oral, Nightly sodium chloride, 10 mL, Intravenous, q12h GREG thiamine, 100 mg, Oral, Daily dexmedeTOMIDine, 0.2-1.5 mcg/kg/hr PRN medications: calcium gluconate, diphenhydrAMINE, haloperidol lactate, LORazepam, magnesium sulfate, potassium & sodium phosphates OR potassium & sodium phosphates, potassium chloride OR potassium chloride OR potassium chloride OR Potassium chloride, QUEtiapine, Insert peripheral IV AND Saline lock IV AND sodium chloride, sodium phosphates 45 mmol in sodium chloride 0.9 % 100 mL IVPB Relevant Imaging and Results I have reviewed all labs. Pertinent findings: creatinine up trending, now 1.3 from 1.1 on 05/22 Assessment & Plan Acute hypercapnic respiratory failure (CMS/HCC) (HCC) Acute on chronic systolic (congestive) heart failure Morbid obesity (HCC) Acute metabolic encephalopathy # Acute on chronic HFrEF #Acute on chronic hypercapnic and hypoxic respiratory failure #Atrial fibrillation #OHS #Acute metabolic encephalopathy with hyperactive delirium #DILLON #Moderate to severe Aortic stenosis Plan: -Neuro: decreased seroquel from 100mg TID to 50 mg at bedtime and prn during the day time. No longer requires restraints today. D/cd precedex -Pulmonary: transitioned from BiPAP to Vapotherm- 20L/min, FiO2 50%, pt maintaining O2 sat at goal > 92%. Nocturnal BiPAP for OHS -continuing diuresis with furosemide 40 mg IV q 8hr -CV: continuing diuresis with furosemide. Afib is rate controlled on amiodarone 200mg daily. continuing anticoagulation with enoxaparin 1mg/kg q 12hr -Renal: diuresis with furosemide. Continuing acetazolamide to Rx contraction alkalosis while on diuresis DVT and GI prophylaxis: on anticoagulation with enoxparin LOS: 6 days Disposition: MICU Critical Care Time: I spent 35 minutes providing direct critical care to this patient. (Excludes time performing procedures) Kandy Theodore MD * Yael Edwards PTA - 05/23/2024 11:55 AM CDT Encounter Note Patient Name: Keyur Randall Sr. Today's Date: 05/23/2024 Missed Treatment Time and Reason Attempted to treat pt today, pt on Bi-Pap, will follow up with pt next therapy session Yael Edwards PTA * HEMA Schafer - 05/23/2024 11:45 AM CDT OT Encounter Note Patient Name: Keyur Randall Sr. Today's Date: 05/23/2024 Missed Treatment Time and Reason 09:44 - 09:48 11:45 - 11:48 Multiple attempts to engage. 1st attempt refused "No, I'm tired" per pt 2nd attempt fatigue unable to engage. Will follow up as time permits HEMA Schafer * Urbano Redd MD - 05/22/2024 2:00 PM CDT Images from the original note were not included. CARDIOLOGY PROGRESS NOTE 05/22/24 Name: Keyur Randall Sr. : 1955 AGE: 68 y.o. Admit Date: 05/16/2024 SUBJECTIVE: Diuresing well. However, he was more confused and he required IV precedex. He remains in Afib but is rate controlled. He has no chest pain or dyspnea. OBJECTIVE: Intake/Output Summary (Last 24 hours) at 05/22/2024 1400 Last data filed at 05/22/2024 0400 Gross per 24 hour Intake -- Output 1700 ml Net -1700 ml Physical Exam: Visit Vitals BP 105/64 Pulse 85 Temp 37.1 ?C (98.7 ?F) (Oral) Resp 20 Ht 1.803 m (5' 11") Wt (!) 152 kg (334 lb) SpO2 100% BMI 46.58 kg/m? Smoking Status Never BSA 2.76 m? GEN: on room air. HEENT: Atraumatic, PERRL, EOMI, moist mucous membranes Heart: RRR, S1 S2 No Murmur Pulses: bilateral radial and DP 2+ Lungs: Breath sounds clear to auscultation, no use of accessory muscles, no crackles or wheezes GI: Soft + BS, abdomen not distended or tender EXT: no clubbing, cyanosis, mild pedal edema SKIN: no rash or petechie Data: Results from last 7 days Lab Units 05/22/24 0457 05/21/24 0729 05/21/24 0510 05/20/24 0757 05/20/24 0338 05/19/24 0833 05/19/24 0410 05/17/24 0846 05/17/24 0444 05/17/24 0216 05/16/24 1833 WBC 10*3/uL 8.45 -- 8.11 -- 5.84 -- 6.31 < > -- -- 7.88 HEMOGLOBIN g/dL 14.2 -- 14.8 -- 13.8 -- 12.4 < > -- -- 13.0 POC HEMATOCRIT, ARTERIAL (CALC) -- -- -- -- -- -- -- < > -- < > -- HEMATOCRIT % 44.1 -- 47.2 -- 43.6 -- 40.4 < > -- -- 42.8 PLATELETS 10*3/uL 194 -- 157* -- 151* -- 156* < > -- -- 162 INR -- -- 1.68* -- -- -- 2.28* -- 2.13* -- -- PTT Seconds -- -- -- -- -- -- -- -- 35.3 -- -- MAGNESIUM mg/dL 2.17 -- 2.13 -- 2.29 < > 1.94 < > -- -- -- POC SODIUM, ARTERIAL -- -- -- -- -- -- -- < > -- < > -- SODIUM mEq/L 135* -- 133* -- 134* < > 139 < > -- -- 137 POC POTASSIUM, ARTERIAL -- -- -- -- -- -- -- < > -- < > -- POTASSIUM mEq/L 3.8 -- 4.2 -- 4.3 < > 4.3 < > -- -- 5.0* POC CHLORIDE -- -- -- -- -- -- -- < > -- < > -- CHLORIDE mEq/L 93* -- 90* -- 90* < > 100 < > -- -- 98 CO2 mEq/L 34.1* -- 32.5* -- 39.7* < > 33.7* < > -- -- 33.9* BUN mg/dL 20 -- 13 -- 17 < > 29* < > -- -- 37* CREATININE mg/dL 1.11 -- 0.99 -- 0.97 < > 0.94 < > -- -- 1.89* EGFR mL/min/1.73m2 73 -- 83 -- 86 < > 89 < > -- -- 38* POC GLUCOSE, ARTERIAL -- -- -- -- -- -- -- < > -- < > -- GLUCOSE mg/dL 74 -- 67* -- 109* < > 90 < > -- -- 96 POC GLUCOSE -- < > -- < > -- < > -- < > -- < > -- CALCIUM mg/dL 9.3 -- 9.3 -- 8.6 < > 7.0* < > -- -- 8.2* PHOSPHORUS mg/dL 2.8 -- 3.1 -- 2.8 -- 2.9 < > -- -- -- ALK PHOS U/L 112 -- 116 -- -- -- -- -- -- -- 114 BILIRUBIN TOTAL mg/dL 2.00* -- 2.40* -- -- -- -- -- -- -- 1.60* BILIRUBIN DIRECT mg/dL -- -- -- -- -- -- -- -- -- -- 0.7* PROTEIN TOTAL g/dL 8.1 -- 9.1* -- -- -- -- -- -- -- 8.4* ALT U/L 14 -- 13 -- -- -- -- -- -- -- 11 AST U/L 22 -- 39 -- -- -- -- -- -- -- 19 < > = values in this interval not displayed. Lab Results Component Value Date CK Total 119 02/14/2024 HS Troponin I <3 05/16/2024 Natriuretic Peptide B Date Value Ref Range Status 05/16/2024 268 (H) 0 - 100 pg/mL Final Comment: Elevated results are in line with increasing severity of congestive heart failure. Minor elevations between 100 and 300 may be seen with Myocardial Ischemia, Sodium retaining drugs, and compensated/treated heart failure. Medications: Scheduled Meds: amiodarone, 200 mg, Oral, Daily enoxaparin, 1 mg/kg, Subcutaneous, q12h folic acid, 1 mg, Oral, Daily furosemide, 40 mg, Intravenous, q8h losartan, 25 mg, Oral, Daily metoprolol tartrate, 25 mg, Oral, q6h GREG multivitamin, 1 tablet, Oral, Daily QUEtiapine, 100 mg, Oral, TID sodium chloride, 10 mL, Intravenous, q12h GREG thiamine, 100 mg, Oral, Daily Images/Studies:Encounter Date: 05/16/24 XR chest 1 view Narrative EXAM: Chest x-ray, 1 view(s). CLINICAL HX:intubated . Age: 68 years.Gender: Male. TECHNIQUE:As above. Facility: [facility]. COMPARISON:Chest x-ray: May 16, 2024. Impression1. Support apparatus: None. 2. Enlarged cardiac silhouette with worsened pulmonary edema. 3. No pneumothorax. Electronically signed by: Kirk Barker MD 05/18/2024 05:17 AM CDT RP Cardiac Studies: Encounter Date: 05/16/24 ECG 12 lead Result Value Ventricular Rate 75 Atrial Rate 234 QRS Duration 104 QT/QTc 394 QTc Calculation 439 R-Garland 91 T-Garland 25 Impression ATRIAL FIBRILLATION RIGHTWARD AXIS ABNORMAL ECG Confirmed by Virgilio Tello ([id number]) on 05/20/2024 8:23:32 AM Transthoracic echo (TTE) complete 05/20/2024 Interpretation SummaryLeft Ventricle: Normal wall motion of left ventricle. Normal systolic function with an estimated EF of 55 - 60%. Aortic Valve: Aortic valve is trileaflet. Moderately calcified left, right and noncoronary leaflets in the aortic valve. Mild to moderate aortic stenosis present. Mitral Valve: Mild mitral regurgitation present. Tricuspid Valve: Mild tricuspid regurgitation present. ASSESSEMENT and PLAN:Patient Active Problem List Diagnosis Morbid obesity (HCC) BMI 40.0-44.9, adult ([facility]) New onset atrial fibrillation (CMS/HCC) ([facility]) Hypertension Acute hypercapnic respiratory failure (CMS/HCC) (HCC) Other heart failure Acute on chronic systolic (congestive) heart failure Acute hypoxic respiratory failure (HCC) Acute metabolic encephalopathy HPI: 68 yo male HFrEF, A-fib on Coumadin, EtOH abuse, NIHARIKA/OHS, previously admitted for hypercapnic respiratory failure [facility] Raiser Lockstitch: Dr. 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 EF 40-45% by TTE in 01/2026, now 55-60% GDMT: - BB: Metoprolol tartrate 25 mg Q6 hours, - ARB: Losartan 25 mg daily - Diuresis: furosemide 40 mg Q8 hours/ Diamox 500mg IV for two more doseas. > Strict I&O and daily weights > Monitor blood pressure / telemetry > Monitor electrolytes and replete > Keep Potassium > 4, Magnesium > 2 - Repeat echocardiogram with LVEF 55-60%, mild to mod AR, mild MR and TR Atrial fibrillation, longstanding persistent:Rate is currently controlled - Rate control: Metoprolol tartrate 25 mg Q6 hours, - Rhythm control: Amiodarone 200 mg daily Hypercoagulable state [id number] score - 4 - Anticoagulation: Lovenox 1 mg/kg subcutaneous Q12 AlcoholismWent into withdrawals during hospitalization in 01/2024 at Pre-DMDietary changes and weight loss Hold losartan due to lower BP today. He remains confused but he is making good urine. Urbano Redd MD FACCCardiovascular Disease [facility] * Monique Mcwilliams PT - 05/22/2024 11:28 AM CDT Encounter Note Patient Name: Keyur Randall Sr. Today's Date: 05/22/2024 Missed Treatment Time and Reason Attempted to tx patient today, but patient is not appropriate for PT due to patient is confused and agitated per RNAlfredo. PT will continue to follow up with patient. Monique Mcwilliams PT * Florentin Mojica, GARRIDO - 05/22/2024 9:10 AM CDT Treatment Session Note Patient Name: Keyur Randall Sr. Today's Date: 05/22/2024 Pt seen in room: E3.318/E3.318 Preferred Language: Ecuadorean Assessment & Plan Assessment: Pt progressing towards mobility goals, demonstrated increased participation with bed mobility. Pt would benefit from continued OT services to promote functional independence with self care and mobility tasks. Plan: Treatment Plan/Goals Established with Patient/Caregiver: Yes Treatment Interventions: ADL retraining, Compensatory technique education, Endurance training, Functional transfer training, Fine motor coordination activities, Patient/family training, UE strengthening/ROM OT Plan: Skilled OT OT Frequency: 3-5 times per week until discharge OT Planned Treatments: Activities of Daily Living, Energy conservation training, Home program, Mobility training, Parenting/Care of others, Patient education, Safety education, Therapeutic activities, Therapeutic exercises OT Duration: 1-2 weeks Therapy discharge recommendations are made by determining the patient's prior level of function, assessing current function level and establishing rehab potential. The overall discharge plan may be affected by input from Physicians, Care Coordination, medical condition/status, family support and insurance benefits. Subjective Pt stated feeling "ok" Nursing approved treatment Objective Pt transitioned supine - sit Max A utilizing bed rail educating on technique. Pt sat EOB ~15 min Min A educating on balance and postural control. Pt c/o "dizziness" while seated EOB. Nursing informed. AM-PAC Daily Activity: Putting on and taking off regular lower body clothing: A Lot Bathing (including washing, rinsing, drying): A Lot Toileting, which includes using toilet, bedpan or urinal: A Lot Putting on and taking off regular upper body clothing: A Little Taking care of personal grooming such as brushing teeth: A Little Eating Meals: A Little AM-PAC Daily Activity Raw Score: 15 Mobility Highest Level of Mobility Performed (JH-HLM): Sat at edge of bed Patient Education: Education Documentation No documentation found. Education Comments No comments found. Goals: Encounter Goals Encounter Goals (Active) Patient will complete grooming standing at the sink with supvn Start: 05/21/24 Expected End: 06/04/24 Patient will complete dressing with supvn Start: 05/21/24 Expected End: 06/04/24 Patient will complete toilet transfer with supvn Start: 05/21/24 Expected End: 06/04/24 Supervising Occupational Therapist:Zeke Morgan OT Patient progress towards current goals and plan of care was discussed in person with supervising Occupational Therapist. Treatment Note: If this is the last documented treatment, then it will signify discharge from acute care prior to discharge from the therapy service and will serve as the discharge summary. HEMA Schafer * Artie Mckeon MD - 05/22/2024 8:58 AM CDT CRITICAL CARE MEDICINE PROGRESS NOTE HPI Keyur Randall . is a 68 y.o. male presenting with PMH HFrEF, A-fib on Coumadin, EtOH abuse, NIHARIKA/OHS, previously admitted for hypercapnic respiratory failure and discharged with pulmonary follow-up, presented for AMS and visual/auditory hallucinations, AOx3 in ED but required increasing O2 support with VBG showing pCO2 94 thus started on BiPAP. 05/17 -hypercapnic respiratory failure on BiPAP with some level of confusion. pCO2 94, monitoring.. 05/19 HFNC 50% alternating with HFNC 05/20 afebrile, WBC 5k, awakes, oriented, less confused, on NIPPV/HFNC on precedex, weaning, negative 6L in 24h, lasix scheduled, adding diamox 05/21 afebrile, WBC 8k, oriented x 3, off precedex, HFNC 20/50%, taking PO on lasix/diamox scheduled, negative 6L in 24h, cardiology following This am afebrile, WBC 8k, awakes, confused, off precedex, on scheduled seroquel, haldol. HFNC 15/40%, on lasix, diamox, negative 2L in 24h Previous 24 hrs: weaning Fio2, moree confused SUBJECTIVE: disoriented Objective Vital signs in last 24 hours: Temp: [37.1 ?C (98.7 ?F)-38.1 ?C (100.6 ?F)] 37.1 ?C (98.7 ?F) Heart Rate: [73-116] 88 Resp: [14-28] 16 BP: (102-154)/(57-111) 140/77 FiO2 (%): [40 %-50 %] 50 % PHYSICAL EXAM: General: obese, well developed, mild distress, less confused HEENT: normocephalic atraumatic, EOMI Neck: No JVD, supple Chest: clear diminished to auscultation BL Heart regular no murmurs rubs or gallops Abdomen soft obese, non tender to palpation Extremities well perfused, edema + Derm: Normal, no evidence of skin breakdown Neuro no gross deficits, moves all extremities CURRENT MEDS amiodarone, 200 mg, Oral, Daily enoxaparin, 1 mg/kg, Subcutaneous, q12h folic acid, 1 mg, Oral, Daily furosemide, 40 mg, Intravenous, q8h losartan, 25 mg, Oral, Daily metoprolol tartrate, 25 mg, Oral, q6h GREG multivitamin, 1 tablet, Oral, Daily QUEtiapine, 100 mg, Oral, TID sodium chloride, 10 mL, Intravenous, q12h GREG thiamine, 100 mg, Oral, Daily PRN medications: calcium gluconate, diphenhydrAMINE, haloperidol lactate, LORazepam, magnesium sulfate, potassium & sodium phosphates OR potassium & sodium phosphates, potassium chloride OR potassium chloride OR potassium chloride OR Potassium chloride, Insert peripheral IV AND Saline lock IV AND sodium chloride, sodium phosphates 45 mmol in sodium chloride 0.9 % 100 mL IVPB Relevant Imaging and ResultsCreatinine and electrolytes wnl Hg stable at 14.2 and plt stable at 194k 05/20 TTE Left Ventricle: Normal wall motion of left ventricle. Normal systolic function with an estimated EF of 55 - 60%. Aortic Valve: Aortic valve is trileaflet. Moderately calcified left, right and noncoronary leaflets in the aortic valve. Mild to moderate aortic stenosis present. Mitral Valve: Mild mitral regurgitation present. Tricuspid Valve: Mild tricuspid regurgitation present. 05/17 CTA chest IMPRESSION: 1. Suboptimal opacification of the pulmonary arterial system. No abnormalfilling defects seen out through the proximal segmental level to suggest the presence of pulmonary emboli. Assessment & PlanMorbid obesity (HCC) Acute hypercapnic respiratory failure (CMS/HCC) (HCC) Acute on chronic systolic (congestive) heart failure Acute metabolic encephalopathy 68 y.o. male presenting with PMH HFrEF, moderate to severe aortic stenosis,A-fib on Coumadin, ETOH abuse, NIHARIKA/OHS admitted with acute mixed respiratory failure, acute on chronic CHF,CAP,, acute metabolic encephalopathy, pt remains on HFNC, off NIPPV for days, weaning Fi2o to 15L/40% cpmpleted antibiotics day 06/24 for CAP, on lasix q8h, diamox scheduled, negative several liters since admission, weaning Fio2 back on precedex as confused, on scheduled seroquel, continue home amiodarone and BB, cardiology following Per pt's daughter, pt not drinking since 01/2024 so unlikely alcohol withdrawal causing encephalopathy, likely ICU delirium DVT and GI prophylaxisLovenox bid, holding home AC LOS: 5 days Disposition: MICU Critical Care Time: I spent 40 minutes providing direct critical care to this patient. (Excludes time performing procedures) Artie Mckeon MD * Lino Calero - 05/21/2024 12:09 PM CDT Functional Maintenance Patient Name: Keyur Randall . Room #: E3.318/E3.318 Today's Date: 05/21/2024 ADLs Range of Motion: Range of Motion LUE Range of Motion: Active LLE Range of Motion: Active RUE Range of Motion: Active RLE Range of Motion: Active Mobility: Mobility Highest Level of Mobility Performed (JH-HLM): Static standing (1 or more minutes) Activity: Ambulate in room Level of Assistance: Assistive equipment and person (MIN) Assistive Device: Front wheel walker Distance Ambulated (ft): 5 ft Ambulation Response: Tolerated well Repositioned: Semi Brown's Head of Bed Elevated : HOB 30 Comfort and Environment Interventions: Miscellaneous Devices: Baseline Pain: Post-Treatment Pain: Comments: Assisted PT/OT refer to notes. Lino Calero * Zeke Morgan OT - 05/21/2024 12:08 PM CDT Evaluation and Treatment Patient Name: Keyur Randall Sr. Today's Date: 05/21/2024 Pt seen in room: E3.318/E3.318 Preferred Language: Ecuadorean Assessment & Plan Assessment:Pt presents with weakness, decreased transfers, decreased activity tolerance, on vapotherm and limited in ADLs at this time. Pt lives with dtr in her 1st floor apartment, independent in ADLs, uses a rollator at home. Pt will benefit from OT services to increase ADL independence. Plan:Treatment Plan/Goals Established with Patient/Caregiver: Yes Treatment Interventions: ADL retraining, Compensatory technique education, Endurance training, Functional transfer training, Fine motor coordination activities, Patient/family training, UE strengthening/ROM OT Plan: Skilled OT OT Frequency: 3-5 times per week until discharge OT Planned Treatments: Activities of Daily Living, Energy conservation training, Home program, Mobility training, Parenting/Care of others, Patient education, Safety education, Therapeutic activities, Therapeutic exercises OT Duration: 1-2 weeks Therapy discharge recommendations are made by determining the patient's prior level of function, assessing current function level and establishing rehab potential. The overall discharge plan may be affected by input from Physicians, Care Coordination, medical condition/status, family support and insurance benefits. Subjective"I worked with you on a job" Current Problem:68 y.o. male presenting with PMH HFrEF, A-fib on Coumadin, EtOH abuse, NIHARIKA/OHS, previously admitted for hypercapnic respiratory failure and discharged with pulmonary follow-up, presented for AMS and visual/auditory hallucinations Past Medical HistoryPt has no past medical history on file. Surgical HistoryPt has no past surgical history on file. Pain:Pain Assessment Pain Assessment: 0-10 Pain Score: 0 Pain Rating Scale (DVPRS): No pain Pain Type: Referred pain Pain Location: Leg Pain Orientation: Right, Left Pain Descriptors: Patient unable to describe Pain Frequency: Intermittent Pain Onset: Gradual Clinical Progression: Not changed Patient's Stated Pain Goal: 2 Pain Interventions: Rest, Emotional support Objective Vital Signs:VSS General Visit Information:Family/Caregiver Present: Yes Others Present: Dtr (Rick Amaya PT; Assisted with Lino Garcia) Precautions:Fall Cognition:Orientation Level: Disoriented to time Home Living:Type of Home: Apartment Lives With: Daughter Home Adaptive Equipment: Walker rolling or standard (rollator and shower chair) Prior Function:ADL Assistance: Independent Prior Function Comments: IND with ADLs; uses a rollator - shower chair in the shower Self Care (ADL):Eating Assistance: Setup/clean-up assistance Grooming Assistance: Setup/clean-up assistance UE Dressing Assistance: Supervision/touching assistance LE Dressing Assistance: Partial/Mod assistance Mobility/Transfers:Bed Mobility Bed Mobility Bed Mobility: Yes Bed Mobility 1 Level of Assistance 1: Supervision/touching assistance Bed Mobility To/From: Sitting EOB to supine Bed Mobility 2 Level of Assistance 2: Partial/Mod assistance Bed Mobility To/From: Supine to sit on EOB TransferTransfers Transfer: Yes Transfer 1 Level of Assistance 1: Supervision/touching assistance Transfer To/From: [id number] Assistive Devices And Adaptive Equipments: Walker, front-wheeled OT General Assessments:ADL Eating Assistance: Setup/clean-up assistance Grooming Assistance: Setup/clean-up assistance UE Dressing Assistance: Supervision/touching assistance LE Dressing Assistance: Partial/Mod assistance Activity ToleranceEndurance: Tolerates 10 - 20 min exercise with multiple rests Sitting Balance: Moves/returns truncal midpoint more than 2 inches in all planes Vision - Basic AssessmentCurrent Vision: No visual deficits SensationSensation Comments: BUE sensation intact ProprioceptionProprioception: RUE Intact, LUE Intact PerceptionInattention/Neglect: Appears intact Initiation: Appears intact Motor Planning: Appears intact Perseveration: Not present CoordinationMovements are Fluid and Coordinated: Yes Finger to Nose: Left intact, Right intact Hand FunctionGross Grasp: Functional Coordination: Functional Extremity Assessments:Right Upper Extremity RUE Assessment RUE Assessment: Within Functional Limits Left Upper Extremity LUE AssessmentLUE Assessment: Within Functional Limits Upper Extremity ToneLeft Upper Extremity: Normal Right Upper Extremity: Normal Treatment:Self-Care: Eating Assistance: Setup/clean-up assistance Grooming Assistance: Setup/clean-up assistance UE Dressing Assistance: Supervision/touching assistance LE Dressing Assistance: Partial/Mod assistance Bed Mobility:Bed Mobility Bed Mobility: Yes Bed Mobility 1 Level of Assistance 1: Supervision/touching assistance Bed Mobility To/From: Sitting EOB to supine Bed Mobility 2 Level of Assistance 2: Partial/Mod assistance Bed Mobility To/From: Supine to sit on EOB Transfers:Transfers Transfer: Yes Transfer 1 Level of Assistance 1: Supervision/touching assistance Transfer To/From: [id number] Assistive Devices And Adaptive Equipments: Walker, front-wheeled Pt took a few steps front/back and to the side towards HOBLimited due to vapotherm lines AM-PAC Daily Activity:Putting on and taking off regular lower body clothing: Total Bathing (including washing, rinsing, drying): Total Toileting, which includes using toilet, bedpan or urinal: Total Putting on and taking off regular upper body clothing: A Lot Taking care of personal grooming such as brushing teeth: A Little Eating Meals: A Little AM-PAC Daily Activity Raw Score: 11 MobilityHighest Level of Mobility Performed (JH-HLM): Static standing (1 or more minutes) Patient Education:Education Documentation Fall Prevention, taught by Zeke Morgan OT at 05/21/2024 1:22 PM. Learner: Patient Readiness: Eager Method: Explanation Response: Verbalizes Understanding OT Home Therapy Program, taught by Zeke Morgan OT at 05/21/2024 1:22 PM. Learner: Patient Readiness: Eager Method: Explanation Response: Verbalizes Understanding Body Mechanics, taught by Zeke Morgan OT at 05/21/2024 1:22 PM.Learner: Patient Readiness: Eager Method: Explanation Response: Verbalizes Understanding Mobility Training, taught by Zeke Morgan OT at 05/21/2024 1:22 PM.Learner: Patient Readiness: Eager Method: Explanation Response: Verbalizes Understanding ADL Training, taught by Zeke Morgan OT at 05/21/2024 1:22 PM.Learner: Patient Readiness: Eager Method: Explanation Response: Verbalizes Understanding Occupational Therapy Plan of Care, taught by Zeke Morgan OT at 05/21/2024 1:22 PM. Learner: Patient Readiness: Eager Method: Explanation Response: Verbalizes Understanding Education CommentsNo comments found. Goals:Encounter Goals Encounter Goals (Active) Patient will complete grooming standing at the sink with supvn Start: 05/21/24 Expected End: 06/04/24 Patient will complete dressing with supvn Start: 05/21/24 Expected End: 06/04/24 Patient will complete toilet transfer with supvn Start: 05/21/24 Expected End: 06/04/24 Treatment Note: If this is the last documented treatment, then it will signify discharge from acute care prior to discharge from the therapy service and will serve as the discharge summary. Zeke Morgan, OT * Monique Mcwilliams, PT - 05/21/2024 12:05 PM CDT Evaluation and Treatment Note Patient Name: Keyur Randall Sr. Today's Date: 05/21/2024 Pt seen in room: 318 Preferred Language: Ecuadorean Assessment & Plan Assessment: PT Assessment: 68 y.o. male admitted for AMS. Pt was dx'd with Respt failure and encephalopathy. At baseline, pt was MOD IND with a rollator, and lives in a 1 story apt on the 1st floor with his DTR. Per PT assessment, Pt presents with impaired gait, bed mobility, transfers, balance, endurance, and functional mobility. Pt would benefit from skilled PT to address his functional deficits. Prognosis: Good Barriers to Discharge: Medical diagnosis Evaluation/Treatment Tolerance: Patient limited by fatigue Medical Staff Made Aware: Yes Strengths: Ability to acquire knowledge Plan: Treatment Plan/Goals Established with Patient/Caregiver: Yes Treatment/Interventions: Balance training, Bed mobility training, Caregiver training, Equipment training, Functional activities, Gait training, Neuromuscular re-education, Pain management, Patient education, Posture/Body mechanics baring, Stair training, Therapeutic exercises, Transfer training, Wheelchair assessment and management PT Plan: Skilled PT PT Frequency: 4-5 times per week until discharge PT Discharge Recommendations: Home health PT PT Recommended Transfer Status: Assistive equipment (Comment) Therapy discharge recommendations are made by determining the patient's prior level of function, assessing current function level and establishing rehab potential. The overall discharge plan may be affected by input from Physicians, Care Coordination, medical condition/status, family support and insurance benefits. Subjective Patient was cleared to participate with PT by RN. Patient states "I can get up." Current Problem: Per chart " 68 y.o. male admitted for AMS. Pt was dx'd with Respt failure and encephalopathy." No past medical history on file. No past surgical history on file. Pain: Pain Assessment: 0-10 Pain Score: 0 Vital Signs: Pts Spo2 was noted to be 88-97% on 40% Fio2 on vapotherm. Pts HR was noted to be 90-130's bpm while ambulating. Patient's Line(s), Tubes, Drains: Pt has Peripheral IV, and Vapotherm on 40% Fio2. Home Living: Type of Home: Apartment Lives With: Daughter Home Adaptive Equipment: Walker rolling or standard (rollator) Home Layout: One level Bathroom Shower/Tub: Tub/shower unit Bathroom Equipment: Shower chair with back Prior Level of Function: Level of [place]: Ambulated with assistive device (comment) (Pt was MOD IND with a Rollator.) ADL Assistance: Independent Prior Function Comments: Patient ambulates with a Rollator prior to admit. Objective General Visit Information: Family/Caregiver Present: Yes Others Present: OTTerence and Lino Leal. Precautions: Medical Precautions: Fall Cognition: Overall Cognitive Status: Within Functional Limits Behavior/Cognition: Alert, Cooperative Orientation Level: Disoriented to time General Assessments: Activity Tolerance Activity Tolerance Endurance: Tolerates 10 - 20 min exercise with multiple rests Sitting Balance: Sits without support for more than 30 sec Sensation Sensation Light Touch: RLE Intact, LLE Intact, RUE Intact, LUE Intact Proprioception Proprioception Proprioception: RLE Intact, LLE Intact Perception Perception Inattention/Neglect: Appears intact Initiation: Appears intact Motor Planning: Appears intact Perseveration: Not present Coordination Coordination Movements are Fluid and Coordinated: Yes Postural Control Postural Control Postural Control: Within Functional Limits Balance- Sitting Static Sitting-Balance Support: No upper extremity supported Level of Assistance: Supervision/touching assistance Balance- Standing Static Standing-Balance Support: Right upper extremity supported, Left upper extremity supported Static Standing-Level of Assistance: Supervision/touching assistance Dynamic Standing-Balance Support: Right upper extremity supported, Left upper extremity supported Functional Assessments: Bed Mobility Bed Mobility 1: Level of Assistance 1: Partial/Mod assistance Bed Mobility Comments 1: Pt requires assistance for trunk support. Bed Mobility To/From: Supine to sit on EOB Assistive Devices And Adaptive Equipments: Head of bed elevated Bed Mobility 2: Level of Assistance 2: Supervision/touching assistance Bed Mobility To/From: Sitting EOB to supine Assistive Devices And Adaptive Equipments: Head of bed elevated Transfers Transfers 1: Level of Assistance 1: Supervision/touching assistance Trials/Comments 1: Pt required VC for proper hand placement. Transfer To/From: [id number] Assistive Devices And Adaptive Equipments: Walker, front-wheeled Gait Gait Training Time Entry: 11 Gait Training Activity 1: Distance (enter in feet): 8 step (fwd/bwd and lateral sidesteps) Gait Training Activity 1: Indoor surface Assistive Devices And Adaptive Equipments: Walker, front-wheeled Level of Assistance 1: Partial/Mod assistance Gait Training Activity 1 Comment: Pt demonstrates foward trunjk flexion and holds the walker too epifanio in front of him. Pts HR was noted to increase to 130's and pt did desat to 88% on Vapotherm on 40%Fio2 so further gait was deferred. Extremity Assessments: Right Lower Extremity RLE Assessment RLE Assessment: Exceptions to WFL AROM RLE (degrees) R Hip Flexion : WFL R Hip Extension : WFL R Knee Flexion : WFL R Knee Extension: WFL R Ankle Dorsiflexion : WFL R Ankle Plantar Flexion : WFL Strength RLER Hip Flexion: 3+/5 R Hip Extension: 3+/5 R Hip ABduction: 3+/5 R Hip ADduction: 3+/5 R Knee Flexion: 3+/5 R Knee Extension: 3+/5 R Ankle Dorsiflexion: 3+/5 R Ankle Plantar Flexion: 3+/5 Left Lower Extremity LLE AssessmentLLE Assessment: Exceptions to WFL AROM LLE (degrees)L Hip Flexion : WFL L Hip Extension: WFL L Hip ABduction: WFL L Hip ADduction: WFL L Knee Flexion: WFL L Knee Extension : WFL L Ankle Dorsiflexion: WFL L Ankle Plantar Flexion : WFL Strength LLEL Hip Flexion: 3+/5 L Hip Extension: 3+/5 L Hip ABduction: 3+/5 L Hip ADduction: 3+/5 L Knee Flexion: 3+/5 L Knee Extension: 3+/5 L Ankle Dorsiflexion: 3+/5 L Ankle Plantar Flexion: 3+/5 Overall Lower Extremity/Trunk ToneOverall Lower Extremity/Trunk Tone Left Lower Extremity: Normal Right Lower Extremity: Normal Right Upper Extremity RUE AssessmentRUE Assessment: Within Functional Limits Left Upper Extremity LUE AssessmentLUE Assessment: Within Functional Limits Upper Extremity ToneUpper Extremity Tone Left Upper Extremity: Normal Right Upper Extremity: Normal Activity Tolerance:Endurance: Tolerates 10 - 20 min exercise with multiple rests Sitting Balance: Sits without support for more than 30 sec CognitionOverall Cognitive Status: Within Functional Limits Behavior/Cognition: Alert, Cooperative Orientation Level: Disoriented to time TreatmentTherapeutic activity: Bed Mobility: Bed Mobility 1: Level of Assistance 1: Partial/Mod assistance Bed Mobility Comments 1: Pt requires assistance for trunk support. Bed Mobility To/From: Supine to sit on EOB Assistive Devices And Adaptive Equipments: Head of bed elevated Bed Mobility 2:Level of Assistance 2: Supervision/touching assistance Bed Mobility To/From: Sitting EOB to supine Assistive Devices And Adaptive Equipments: Head of bed elevated Transfers: Transfers 1: Level of Assistance 1: Supervision/touching assistance Trials/Comments 1: Pt required VC for proper hand placement. Transfer To/From: Die-be-Nuoou/[id number] Assistive Devices And Adaptive Equipments: Walker, front-wheeled Gait training: Gait Training Time Entry: 11 Gait Training Activity 1:Distance (enter in feet): 8 step (fwd/bwd and lateral sidesteps) Gait Training Activity 1: Indoor surface Assistive Devices And Adaptive Equipments: Walker, front-wheeled Level of Assistance 1: Partial/Mod assistance Gait Training Activity 1 Comment: Pt demonstrates foward trunjk flexion and holds the walker too epifanio in front of him. Pts HR was noted to increase to 130's and pt did desat to 88% on Vapotherm on 40%Fio2 so further gait was deferred. AM-PAC Basic Mobility:Turning in bed without bedrails: A Little Lying on back to sitting on edge of flat bed: A Little Bed to chair: A Little Standing up from chair: A Little Walk in room: A Little Climbing 3-5 stairs: A Lot Mobility Inpatient Raw Score: 17 -HLM Goal: 5 Static standing (1 or more minutes) Patient Education:Education Documentation Durable Medical Equipment, taught by Monique Mcwilliams, PT at 05/21/2024 3:00 PM. Learner: Patient Readiness: Eager Method: Explanation Response: Verbalizes Understanding Home Exercise Program, taught by Monique Mcwilliams PT at 05/21/2024 3:00 PM. Learner: Patient Readiness: Eager Method: Explanation Response: Verbalizes Understanding Fall Prevention, taught by Monique Mcwilliams PT at 05/21/2024 3:00 PM.Learner: Patient Readiness: Eager Method: Explanation Response: Verbalizes Understanding Mobility, taught by Monique Mcwilliams PT at 05/21/2024 3:00 PM.Learner: Patient Readiness: Eager Method: Explanation Response: Verbalizes Understanding Positioning, taught by Monique Mcwilliams PT at 05/21/2024 3:00 PM.Learner: Patient Readiness: Eager Method: Explanation Response: Verbalizes Understanding Physical Therapy Plan of Care, taught by Monique Mcwilliams PT at 05/21/2024 3:00 PM. Learner: Patient Readiness: Eager Method: Explanation Response: Verbalizes Understanding Education CommentsNo comments found. Goal:Encounter Goals Encounter Goals (Active) Patient will perform bed mobility with SPV. Start: 05/21/24 Expected End: 06/11/24 Patient will perform transfers with SPV with Least restrictive assistive device or no device. Start: 05/21/24 Expected End: 06/11/24 Patient will ambulate 150ft with Least restrictive assistive device or no device with SPV. Start: 05/21/24 Expected End: 06/11/24 Treatment Note: If this is the last documented treatment, then it will signify discharge from acute care prior to discharge from the therapy service and will serve as the discharge summary. Monique Mcwilliams PT * Urbano Redd MD - 05/21/2024 9:17 AM CDT Images from the original note were not included. CARDIOLOGY PROGRESS NOTE 05/21/24 Name: Keyur Randall : 1955 AGE: 68 y.o. Admit Date: 05/16/2024 SUBJECTIVE: Remains on vapotherm 10L 40% FiO2, afternoon visit with his oxygen self removed, sats were 76% Diuresed 20L thus far since admission Review of telemetry is is atrial fibrillation, no noted pauses OBJECTIVE: Intake/Output Summary (Last 24 hours) at 05/21/2024 0917 Last data filed at 05/21/2024 0600 Gross per 24 hour Intake 692.61 ml Output 6450 ml Net -5757.39 ml Physical Exam: Visit Vitals BP 136/69 Pulse 95 Temp 36.8 ?C (98.2 ?F) (Oral) Resp 17 Ht 1.803 m (5' 11") Wt (!) 152 kg (334 lb) SpO2 99% BMI 46.58 kg/m? Smoking Status Never BSA 2.76 m? GEN: Alert, awake, oriented to self HEENT: Atraumatic, PERRL, EOMI, moist mucous membranes Heart: irregularly irregular , S1 S2 No Murmur Pulses: Pulses: bilateral radial and DP 2+ Lungs: Breath sounds clear to auscultation, no use of accessory muscles, no crackles or wheezes GI: Soft + BS, abdomen not distended or tender EXT: + bilateral lower extremity and trunk edema SKIN: no rash or petechie Data: Results from last 7 days Lab Units 05/21/24 0729 05/21/24 0510 05/20/24 0757 05/20/24 0338 05/19/24 1951 05/19/24 0833 05/19/24 0410 05/17/24 0846 05/17/24 0444 05/17/24 0216 05/16/24 1833 WBC 10*3/uL -- 8.11 -- 5.84 -- -- 6.31 < > -- -- 7.88 HEMOGLOBIN g/dL -- 14.8 -- 13.8 -- -- 12.4 < > -- -- 13.0 POC HEMATOCRIT, ARTERIAL (CALC) -- -- -- -- -- -- -- < > -- < > -- HEMATOCRIT % -- 47.2 -- 43.6 -- -- 40.4 < > -- -- 42.8 PLATELETS 10*3/uL -- 157* -- 151* -- -- 156* < > -- -- 162 INR -- 1.68* -- -- -- -- 2.28* -- 2.13* -- -- PTT Seconds -- -- -- -- -- -- -- -- 35.3 -- -- MAGNESIUM mg/dL -- 2.13 -- 2.29 2.46 -- 1.94 < > -- -- -- POC SODIUM, ARTERIAL -- -- -- -- -- -- -- < > -- < > -- SODIUM mEq/L -- 133* -- 134* 135* -- 139 < > -- -- 137 POC POTASSIUM, ARTERIAL -- -- -- -- -- -- -- < > -- < > -- POTASSIUM mEq/L -- 4.2 -- 4.3 4.4 -- 4.3 < > -- -- 5.0* POC CHLORIDE -- -- -- -- -- -- -- < > -- < > -- CHLORIDE mEq/L -- 90* -- 90* 92* -- 100 < > -- -- 98 CO2 mEq/L -- 32.5* -- 39.7* >40.0* -- 33.7* < > -- -- 33.9* BUN mg/dL -- 13 -- 17 18 -- 29* < > -- -- 37* CREATININE mg/dL -- 0.99 -- 0.97 0.99 -- 0.94 < > -- -- 1.89* EGFR mL/min/1.73m2 -- 83 -- 86 83 -- 89 < > -- -- 38* POC GLUCOSE, ARTERIAL -- -- -- -- -- -- -- < > -- < > -- GLUCOSE mg/dL -- 67* -- 109* 107* -- 90 < > -- -- 96 POC GLUCOSE mg/dL 78 -- < > -- -- < > -- < > -- < > -- CALCIUM mg/dL -- 9.3 -- 8.6 8.3 -- 7.0* < > -- -- 8.2* PHOSPHORUS mg/dL -- 3.1 -- 2.8 -- -- 2.9 < > -- -- -- ALK PHOS U/L -- 116 -- -- -- -- -- -- -- -- 114 BILIRUBIN TOTAL mg/dL -- 2.40* -- -- -- -- -- -- -- -- 1.60* BILIRUBIN DIRECT mg/dL -- -- -- -- -- -- -- -- -- -- 0.7* PROTEIN TOTAL g/dL -- 9.1* -- -- -- -- -- -- -- -- 8.4* ALT U/L -- 13 -- -- -- -- -- -- -- -- 11 AST U/L -- 39 -- -- -- -- -- -- -- -- 19 < > = values in this interval not displayed. Lab ResultsComponent Value Date CK Total 119 02/14/2024 HS Troponin I <3 05/16/2024 Natriuretic Peptide BDate Value Ref Range Status 05/16/2024 268 (H) 0 - 100 pg/mL Final Comment: Elevated results are in line with increasing severity of congestive heart failure. Minor elevations between 100 and 300 may be seen with Myocardial Ischemia, Sodium retaining drugs, and compensated/treated heart failure. Medications: Scheduled Meds: acetaZOLAMIDE (Diamox) 500 mg in sterile water 5 mL injection, 500 mg, Intravenous, Once amiodarone, 100 mg, Oral, Daily cefTRIAXone (Rocephin) 2 g in sodium chloride 0.9 % 100 mL IVPB-MB+, 2 g, Intravenous, q24h enoxaparin, 1 mg/kg, Subcutaneous, q12h folic acid, 1 mg, Oral, Daily furosemide, 40 mg, Intravenous, q8h losartan, 25 mg, Oral, Daily metoprolol tartrate, 25 mg, Oral, q8h GREG multivitamin, 1 tablet, Oral, Daily sodium chloride, 10 mL, Intravenous, q12h GREG thiamine, 100 mg, Oral, Daily Images/Studies:Encounter Date: 05/16/24 XR chest 1 view Narrative EXAM: Chest x-ray, 1 view(s). CLINICAL HX:intubated . Age: 68 years.Gender: Male. TECHNIQUE:As above. Facility: [facility]. COMPARISON:Chest x-ray: May 16, 2024. Impression1. Support apparatus: None. 2. Enlarged cardiac silhouette with worsened pulmonary edema. 3. No pneumothorax. Electronically signed by: Kirk Barker MD 05/18/2024 05:17 AM CDT RP Cardiac Studies: Encounter Date: 05/16/24 ECG 12 lead Result Value Ventricular Rate 75 Atrial Rate 234 QRS Duration 104 QT/QTc 394 QTc Calculation 439 R-Garland 91 T-Garland 25 Impression ATRIAL FIBRILLATION RIGHTWARD AXIS ABNORMAL ECG Confirmed by Virgilio Tello ([id number]) on 05/20/2024 8:23:32 AM Transthoracic echo (TTE) complete 05/20/2024 Interpretation SummaryLeft Ventricle: Normal wall motion of left ventricle. Normal systolic function with an estimated EF of 55 - 60%. Aortic Valve: Aortic valve is trileaflet. Moderately calcified left, right and noncoronary leaflets in the aortic valve. Mild to moderate aortic stenosis present. Mitral Valve: Mild mitral regurgitation present. Tricuspid Valve: Mild tricuspid regurgitation present. Transthoracic echo (TTE) complete 03/01/2024 1. Technically Difficult Suboptimal Study.2. Mild concentric left ventricular hypertrophy. 3. Unable to evaluate accurately left ventricular systolic function due to poor acoustic echo windows but appears to be within normal limits. 4. Mildly dilated left atrium. 5. The aortic valve leaflets are mildly thickened and calcified. 6. Mild aortic valve stenosis. 7. Mild tricuspid regurgitation. 8. Systolic pulmonary artery pressure is estimated to be 55 to 60 mmHg. 9. Estimated right atrial pressure is 11 to 15 mmHg. 10. Suggest limited 2D-echocardiogram with ultrasound-enhancing agents (e.g. Definity) for further evaluation if clinically indicated. Transthoracic echo (TTE) complete 02/15/2024 Interpretation SummaryLeft Ventricle: Left ventricle size is normal. Findings consistent with mild concentric hypertrophy. Reduced systolic function with an estimated EF of 40 - 45%. Right Ventricle: Right ventricle is moderately dilated. Low normal systolic function in the right ventricle. Left Atrium: Left atrium is mildly dilated. Aortic Valve: Aortic valve is trileaflet. Moderately thickened leaflets in the aortic valve. Moderately calcified leaflets in the aortic valve. Moderate to severe aortic stenosis present. Mitral Valve: Mildly thickened leaflets in the mitral valve. Moderate mitral regurgitation present. Tricuspid Valve: Mild tricuspid regurgitation present. The estimated right ventricular systolic pressure, based on a presumed right atrial pressure of 10 mmHg, is 36 mmHg. Mild pulmonary hypertension present. No pericardial effusion present. ASSESSEMENT and PLAN: Patient Active Problem List Diagnosis Morbid obesity (HCC) BMI 40.0-44.9, adult (HCC) New onset atrial fibrillation (CMS/HCC) (HCC) Hypertension Acute hypercapnic respiratory failure (CMS/HCC) (HCC) Other heart failure Acute on chronic systolic (congestive) heart failure Acute hypoxic respiratory failure (HCC) Acute metabolic encephalopathy HPI: 68 yo male HFrEF, A-fib on Coumadin, EtOH abuse, NIHARIKA/OHS, previously admitted for hypercapnic respiratory failure [facility] [employer]: Dr. 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 EF 40-45% by TTE in 01/2026 GDMT: - BB: Metoprolol tartrate 25 mg Q6 hours, lowered dose secondary to frequent pauses - ARB: Losartan 25 mg daily - Diuresis: furosemide 40 mg Q8 hours/ Diamox 250 mg IV 05/20 and 500 mg 05/21 > Strict I&O and daily weights > Monitor blood pressure / telemetry > Monitor electrolytes and replete > Keep Potassium > 4, Magnesium > 2 - Repeat echocardiogram with LVEF 55-60%, mild to mod AR, mild MR and TR Atrial fibrillation, longstanding persistent:Rate is currently controlled, but with pauses - Rate control: Metoprolol tartrate 25 mg Q8 hours, lowered dose secondary to frequent pauses - Rhythm control: Amiodarone 100 mg daily Hypercoagulable state [id number] score - 4 - Anticoagulation: Lovenox 1 mg/kg subcutaneous Q12 AlcoholismWent into withdrawals during hospitalization in 01/2024 at Pre-DMDietary changes and weight loss Attending Addendum: The patient was seen in collaboration with the Nurse Practitioner, Jerrica Bonner. I have evaluated the patient, reviewed the history, radiographic imaging, and diagnostic testing. I also have examined and evaluated the patient and agree with the notes and findings of the Nurse Practitioner. This includes [id number] examination and evaluation, reviewing external records, educating the patient, interpreting and ordering tests / medicines / procedures, coordinating care with other providers, and doing a post-visit chart review. Continue IV diuretics, ICU level of care. Urbano Redd MD F[facility]CCardiovascular Disease [facility] * Artie Mckeon MD - 05/21/2024 9:13 AM CDT CRITICAL CARE MEDICINE PROGRESS NOTE HPI Keyur Randall Sr. is a 68 y.o. male presenting with PMH HFrEF, A-fib on Coumadin, EtOH abuse, NIHARIKA/OHS, previously admitted for hypercapnic respiratory failure and discharged with pulmonary follow-up, presented for AMS and visual/auditory hallucinations, AOx3 in ED but required increasing O2 support with VBG showing pCO2 94 thus started on BiPAP. 05/17 -hypercapnic respiratory failure on BiPAP with some level of confusion. pCO2 94, monitoring.. 05/19 HFNC 50% alternating with HFNC 05/20 afebrile, WBC 5k, awakes, oriented, less confused, on NIPPV/HFNC on precedex, weaning, negative 6L in 24h, lasix scheduled, adding diamox This am afebrile, WBC 8k, oriented x 3, off precedex, HFNC 20/50%, taking PO on lasix/diamox scheduled, negative 6L in 24h, cardiology followijng Previous 24 hrs: weaning Fio2 SUBJECTIVE: no new complaints Objective Vital signs in last 24 hours: Temp: [36.6 ?C (97.9 ?F)-37 ?C (98.6 ?F)] 36.8 ?C (98.2 ?F) Heart Rate: [54-102] 95 Resp: [12-31] 17 BP: (109-153)/(48-86) 136/69 FiO2 (%): [50 %-55 %] 55 % PHYSICAL EXAM: General: obese, well developed, mild distress, less confused HEENT: normocephalic atraumatic, EOMI Neck: No JVD, supple Chest: clear diminished to auscultation BL Heart regular no murmurs rubs or gallops Abdomen soft obese, non tender to palpation Extremities well perfused, edema ++ Derm: Normal, no evidence of skin breakdown Neuro no gross deficits, moves all extremities CURRENT MEDS acetaZOLAMIDE (Diamox) 500 mg in sterile water 5 mL injection, 500 mg, Intravenous, Once amiodarone, 100 mg, Oral, Daily cefTRIAXone (Rocephin) 2 g in sodium chloride 0.9 % 100 mL IVPB-MB+, 2 g, Intravenous, q24h enoxaparin, 1 mg/kg, Subcutaneous, q12h folic acid, 1 mg, Oral, Daily furosemide, 40 mg, Intravenous, q8h losartan, 25 mg, Oral, Daily metoprolol tartrate, 25 mg, Oral, q8h GREG multivitamin, 1 tablet, Oral, Daily sodium chloride, 10 mL, Intravenous, q12h GREG thiamine, 100 mg, Oral, Daily dexmedeTOMIDine, 0.2-1.5 mcg/kg/hr, Last Rate: Stopped (05/20/24 2200) PRN medications: calcium gluconate, diphenhydrAMINE, LORazepam, magnesium sulfate, potassium & sodium phosphates OR potassium & sodium phosphates, potassium chloride OR potassium chloride OR potassium chloride OR Potassium chloride, Insert peripheral IV AND Saline lock IV AND sodium chloride, sodium chloride, sodium phosphates 45 mmol in sodium chloride 0.9 % 100 mL IVPB Relevant Imaging and ResultsCreatinine and electrolytes wnl Hg stable at 14.8 and plt stable at 157k 02/12 TTE Left Ventricle: Left ventricle size is normal. Findings consistent with mild concentric hypertrophy. Reduced systolic function with an estimated EF of 40 - 45%. Right Ventricle: Right ventricle is moderately dilated. Low normal systolic function in the right ventricle. Left Atrium: Left atrium is mildly dilated. Aortic Valve: Aortic valve is trileaflet. Moderately thickened leaflets in the aortic valve. Moderately calcified leaflets in the aortic valve. Moderate to severe aortic stenosis present. Mitral Valve: Mildly thickened leaflets in the mitral valve. Moderate mitral regurgitation present. Tricuspid Valve: Mild tricuspid regurgitation present. The estimated right ventricular systolic pressure, based on a presumed right atrial pressure of 10 mmHg, is 36 mmHg. Mild pulmonary hypertension present. No pericardial effusion present. 05/17 CTA chest IMPRESSION: 1. Suboptimal opacification of the pulmonary arterial system. No abnormalfilling defects seen out through the proximal segmental level to suggest the presence of pulmonary emboli. Assessment & PlanMorbid obesity (HCC) Acute hypercapnic respiratory failure (CMS/HCC) (HCC) Acute on chronic systolic (congestive) heart failure Acute metabolic encephalopathy 68 y.o. male presenting with PMH HFrEF, moderate to severe aortic stenosis,A-fib on Coumadin, ETOH abuse, NIHARIKA/OHS admitted with acute mixed respiratory failure, acute on chronic CHF,CAP, acute metabolic encephalopathy, pt remains on NIPPV/HFNC, empirical antibiotics day 5, lasix q8h,diamox scheduled, negative several liters since admission, weaning Fio2 and now off precedex continue home amiodarone and BB, ativan prn, cardiology following, taking PO, daily PT DVT and GI prophylaxisLovenox bid, holding home AC LOS: 4 days Disposition: MICU Critical Care Time: I spent 40 minutes providing direct critical care to this patient. (Excludes time performing procedures) Artie Mckeon MD * Zeke Morgan OT - 05/20/2024 11:50 AM CDT OT Encounter Note Patient Name: Keyur Randall Sr. Today's Date: 05/20/2024 Missed Treatment Time and Reason 1150 - 2nd attempt for today; pt is off bipap on NC; spoke with dtr stating that he needs rest currently and that no one should bother him at this time. Informed family of OT role and purpose; will reattempt tomorrow for OT eval - Rn notified. Zeke Morgan OT * Monique Mcwilliams PT - 05/20/2024 9:18 AM CDT Encounter Note Patient Name: Keyur Randall Sr. Today's Date: 05/20/2024 Missed Treatment Time and Reason Attempted to evaluate pt today, but RN deferred PT. PT will continue to follow. Monique Mcwilliams PT * Artie Mckeon MD - 05/20/2024 8:36 AM CDT CRITICAL CARE MEDICINE PROGRESS NOTE HPI Keyur Randall Sr. is a 68 y.o. male presenting with PMH HFrEF, A-fib on Coumadin, EtOH abuse, NIHARIKA/OHS, previously admitted for hypercapnic respiratory failure and discharged with pulmonary follow-up, presented for AMS and visual/auditory hallucinations, AOx3 in ED but required increasing O2 support with VBG showing pCO2 94 thus started on BiPAP. 05/17 -hypercapnic respiratory failure on BiPAP with some level of confusion. pCO2 94, monitoring.. 05/19 HFNC 50% alternating with HFNC Ths am afebrile, WBC 5k, awakes, oriented, less confused, on NIPPV/HFNC on precedex, weaning, negative 6L Previous 24 hrs: remained in ICU SUBJECTIVE: no new complaints Objective Vital signs in last 24 hours: Temp: [36.4 ?C (97.5 ?F)-37 ?C (98.6 ?F)] 36.7 ?C (98 ?F) Heart Rate: [54-83] 83 Resp: [12-25] 25 BP: (109-173)/(61-134) 126/62 FiO2 (%): [50 %] 50 % PHYSICAL EXAM: General: obese, well developed, mild distress HEENT: normocephalic atraumatic, EOMI Neck: No JVD, supple Chest: clear diminished to auscultation BL Heart regular no murmurs rubs or gallops Abdomen soft obese, non tender to palpation Extremities well perfused, edema ++ Derm: Normal, no evidence of skin breakdown Neuro no gross deficits, moves all extremities CURRENT MEDS amiodarone, 200 mg, Oral, Daily cefTRIAXone (Rocephin) 2 g in sodium chloride 0.9 % 100 mL IVPB-MB+, 2 g, Intravenous, q24h furosemide, 40 mg, Intravenous, q8h metoprolol tartrate, 50 mg, Oral, q12h GREG dexmedeTOMIDine, 0.2-1.5 mcg/kg/hr, Last Rate: 1.1 mcg/kg/hr (05/20/24 0643) PRN medications: calcium gluconate, magnesium sulfate, potassium & sodium phosphates OR potassium & sodium phosphates, potassium chloride OR potassium chloride OR potassium chloride OR Potassium chloride, Insert peripheral IV AND Saline lock IV AND sodium chloride, sodium phosphates 45 mmol in sodium chloride 0.9 % 100 mL IVPB Relevant Imaging and ResultsCreatinine and electrolytes wnl Hg stable at 13.8 and plt stable at 151k 02/12 TTE Left Ventricle: Left ventricle size is normal. Findings consistent with mild concentric hypertrophy. Reduced systolic function with an estimated EF of 40 - 45%. Right Ventricle: Right ventricle is moderately dilated. Low normal systolic function in the right ventricle. Left Atrium: Left atrium is mildly dilated. Aortic Valve: Aortic valve is trileaflet. Moderately thickened leaflets in the aortic valve. Moderately calcified leaflets in the aortic valve. Moderate to severe aortic stenosis present. Mitral Valve: Mildly thickened leaflets in the mitral valve. Moderate mitral regurgitation present. Tricuspid Valve: Mild tricuspid regurgitation present. The estimated right ventricular systolic pressure, based on a presumed right atrial pressure of 10 mmHg, is 36 mmHg. Mild pulmonary hypertension present. No pericardial effusion present. 05/17 CTA chest IMPRESSION: 1. Suboptimal opacification of the pulmonary arterial system. No abnormalfilling defects seen out through the proximal segmental level to suggest the presence of pulmonary emboli. Assessment & PlanMorbid obesity (HCC) Acute hypercapnic respiratory failure (CMS/HCC) (HCC) Acute on chronic systolic (congestive) heart failure Acute metabolic encephalopathy 68 y.o. male presenting with PMH HFrEF, moderate to severe aortic stenosisA-fib on Coumadin, EtOH abuse, NIHARIKA/OHS admitted with acute mixed respiratory failure, acute on chronic CHF,CAP, encephalopathy, pt remains on NIPPV/HFNC, antibiotics, lasix q8h, negative several liters since admission, weaning Fio2 and precedex, restart home amiodarone and BB, ativan prn, cardiology consulted DVT and GI prophylaxisINR elevated, holding AC LOS: 3 days Disposition: MICU Critical Care Time: I spent 40 minutes providing direct critical care to this patient. (Excludes time performing procedures) Artie Mckeon MD * Zeke Morgan, OT - 05/20/2024 8:25 AM CDT OT Encounter Note Patient Name: Keyur Randall Sr. Today's Date: 05/20/2024 Missed Treatment Time and Reason Spoke with RN - pt on bipap resting at this time - pt had AMS being combative/agitated; will let pt rest on bipap at this time - check back in PM for OT terry Morgan OT * Brenden Muñoz MD - 05/19/2024 2:27 PM CDT CRITICAL CARE MEDICINE PROGRESS NOTE HPI Keyur Randall Sr. is a 68 y.o. male PMH HFrEF, A-fib on Coumadin, EtOH abuse, NIHARIKA/OHS, previously admitted for hypercapnic respiratory failure and discharged with pulmonary follow-up, presented for AMS and visual/auditory hallucinations, AOx3 in ED but required increasing O2 support with VBG showing pCO2 94 thus started on BiPAP. 05/17 -hypercapnic respiratory failure on BiPAP with some level of confusion. pCO2 94, monitoring. SUBJECTIVE: tolerated Bipap overnight, now on Vapotherm at 50% Objective Vital signs in last 24 hours: Temp: [36.7 ?C (98.1 ?F)-37.1 ?C (98.8 ?F)] 36.8 ?C (98.3 ?F) Heart Rate: [58-88] 73 Resp: [13-27] 20 BP: (83-136)/(52-116) 128/73 FiO2 (%): [50 %] 50 % PHYSICAL EXAM: General: Alert, HEENT: normocephalic atraumatic, EOMI Neck: No JVD, supple Chest: diminished to auscultation BL Heart regular no murmurs rubs or gallops Abdomen soft obese, non tender to palpation Extremities well perfused, 1+edema Derm: Normal, no evidence of skin breakdown Neuro no gross deficits, CURRENT MEDS cefTRIAXone (Rocephin) 2 g in sodium chloride 0.9 % 100 mL IVPB-MB+, 2 g, Intravenous, q24h diphenhydrAMINE, 25 mg, Intravenous, Once furosemide, 40 mg, Intravenous, q8h dexmedeTOMIDine, 0.2-1.5 mcg/kg/hr, Last Rate: 0.5 mcg/kg/hr (05/19/24 1150) PRN medications: calcium gluconate, magnesium sulfate, potassium & sodium phosphates OR potassium & sodium phosphates, potassium chloride OR potassium chloride OR potassium chloride OR Potassium chloride, Insert peripheral IV AND Saline lock IV AND sodium chloride, sodium phosphates 45 mmol in sodium chloride 0.9 % 100 mL IVPB Relevant Imaging and Results Lab ResultsComponent Value Date POC Glu 112 (H) 05/19/2024 Calcium Lvl 7.0 (LL) 05/19/2024 Sodium Lvl 139 05/19/2024 Potassium Lvl 4.3 05/19/2024 CO2 Lvl 33.7 (H) 05/19/2024 Chloride Lvl 100 05/19/2024 BUN 29 (H) 05/19/2024 Creatinine Lvl 0.94 05/19/2024 Assessment & PlanAcute metabolic encephalopathy Acute hypercapnic respiratory failure (CMS/HCC) (HCC) Morbid obesity (HCC) Acute on chronic systolic (congestive) heart failure Will continue Vapotherm during the dayBipap at night for support -continue abx for pneumonia treatment On lasix for acute heart failure on home amiodarone -takes either eliquis or warfarin at home, will find out and restart, unclear what he has been filling at pharmacy -INR is 2 for now DVT and GI prophylaxisSCDs LOS: 2 days Disposition: ICU Critical Care Time: I spent 32 minutes providing direct critical care to this patient. (Excludes time performing procedures) Brenden Muñoz MD * Shanae Herring RRT - 05/19/2024 12:43 AM CDT Pt was placed on BIPAP around 2330. After an hour, pt ripped his mask off and refused to put it back on. Pt is combative and aggressive. * Brenden Muñoz MD - 05/18/2024 4:07 PM CDT CRITICAL CARE MEDICINE PROGRESS NOTE HPI Keyur Randall Sr. is a 68 y.o. male PMH HFrEF, A-fib on Coumadin, EtOH abuse, NIHARIKA/OHS, previously admitted for hypercapnic respiratory failure and discharged with pulmonary follow-up, presented for AMS and visual/auditory hallucinations, AOx3 in ED but required increasing O2 support with VBG showing pCO2 94 thus started on BiPAP. 05/17 -hypercapnic respiratory failure on BiPAP with some level of confusion. pCO2 94, monitoring. SUBJECTIVE: tolerated Bipap overnight, now on Vapotherm at 50% Objective Vital signs in last 24 hours: Temp: [36.2 ?C (97.2 ?F)-36.8 ?C (98.3 ?F)] 36.2 ?C (97.2 ?F) Heart Rate: [52-75] 65 Resp: [14-27] 18 BP: (71-112)/(35-84) 102/67 FiO2 (%): [40 %-50 %] 50 % PHYSICAL EXAM: General: Alert, HEENT: normocephalic atraumatic, EOMI Neck: No JVD, supple Chest: diminished to auscultation BL Heart regular no murmurs rubs or gallops Abdomen soft obese, non tender to palpation Extremities well perfused, 1+edema Derm: Normal, no evidence of skin breakdown Neuro no gross deficits, CURRENT MEDS cefTRIAXone (Rocephin) 2 g in sodium chloride 0.9 % 100 mL IVPB-MB+, 2 g, Intravenous, q24h furosemide, 40 mg, Intravenous, q8h PRN medications: Insert peripheral IV AND Saline lock IV AND sodium chloride Relevant Imaging and Results Lab ResultsComponent Value Date POC Glu 70 05/18/2024 Calcium Lvl 4.5 (LL) 05/18/2024 POC A Na 130 (L) 05/18/2024 POC A K 5.2 (H) 05/18/2024 CO2 Lvl 25.6 05/18/2024 POC Chloride 98 05/18/2024 BUN 23 05/18/2024 Creatinine Lvl 0.88 05/18/2024 Assessment & PlanAcute metabolic encephalopathy Acute hypercapnic respiratory failure (CMS/HCC) (HCC) Morbid obesity (HCC) Acute on chronic systolic (congestive) heart failure Will continue Vapotherm during the dayBipap at night for support -continue abx for pneumonia treatment On lasix for acute heart failure Will restart home amiodarone -takes either eliquis or warfarin at home, will find out and restart -INR is 2.1 DVT and GI prophylaxisSCDs LOS: 1 day Disposition: ICU Critical Care Time: I spent 36 minutes providing direct critical care to this patient. (Excludes time performing procedures) Brenden Muñoz MD [facility]2025-04-07 13:11:16Scheduled Orders Scheduled Referrals Name Type Priority Associated Diagnoses Orde r Schedule Ambulatory referral to Home Health Outpatient Referral Routine Acute hypoxic respiratory failure (HCC) Acute on chronic systolic (congestive) heart failure Acute hypercapnic respiratory failure (CMS/HCC) (HCC) Expected: 05/27/2024 (Approximate), Expires: 05/27/2025 Health Maintenance Due Date Last Done Comments CT Colonography 1955 Colonoscopy 1955 Colorectal Cancer Screening 1955 FIT-DNA 1956 FIT 1955 FOBT 1955 Medicare Annual Wellness (AWV) 1955 Sigmoidoscopy 1955 DTaP/Tdap/Td Vaccines (1 - Tdap) 12/28/1975 Hepatitis A Vaccines (1 of 2 - Risk 2-dose series) 12/28/1975 Pneumococcal Vaccine: 50+ Ye ars (1 of 2 - PCV) 12/28/1975 Zoster Vaccines (1 of 2) 2006 Hepatitis B Vaccines (1 of 3 - Risk 3-dose series) 2016 Respiratory Syncytial Virus (RSV) or >=60 (1 - Risk 60-74 years 1-dose series) 2016 Influenza Vaccine (Season Ended) 2024 Lipid Panel 02/28/2029 02/29/2024 HIB Vaccines Aged Out No longer eligi ble based on patient's age to complete this topic HPV Vaccines Aged Out No longer eligi ble based on patient's age to complete this topic IPV Vaccines Aged Out No longer eligi ble based on patient's age to complete this topic Meningococcal Vaccine Aged Out No marlen rafaela eligible based on patient's age to complete this topic Rotavirus Vaccines Aged Out No longer eligible based on patient's age to complete this topic [facility] 13:11:16 Diagnosis Altered mental status, unspe cified altered mental status type - Primary DILLON (acute kidney injury) (H CC) Respiratory distress Other dyspnea and respiratory abnormality Acute hypoxic respiratory fa ilure (HCC) Acute on chronic systolic (c ongestive) heart failure Acute hypercapnic respirator y failure (CMS/HCC) (HCC) Acute metabolic encephalopat hy Acute hypercapnic respirator y failure (CMS/HCC) (HCC) Morbid obesity (HCC) Morbid obesity Acute on chronic systolic (c ongestive) heart failure [facility]vinqx0956-[facility] 13:11:16 [facility]nbawcm3191-[facility] 12:52:53 Discharge instruction given to the patient's daughter. After Visit Summary was discussed and given to the patient's daughter. She verbalizes understanding. Patient reported no pain at the time of discharge.Patient went home with family in their private vehicle. NursingJohn [facility] [id number] 12:02:58 Images from the original note were not included. [id number] Metoprolol Brand Name(s): Kapspargo Sprinkle?, Lopressor?, Toprol?, Toprol? XL, Dutoprol? (as a combination product containing Metoprolol, Hydrochlorothiazide), Lopressidone? (as a combination product containing Chlorthalidone, Metoprolol), Lopressor? HCT (as a combination product containing Metoprolol, Hydrochlorothiazide); also available generically WHY is this medicine prescribed? Metoprolol is used alone or in combination with other medications to treat high blood pressure. It also is used to treat chronic (long-term) angina (chest pain). Metoprolol is also used to improve survival after a heart attack. Metoprolol also is used in combination with other medications to treat heart failure. Metoprolol is in a class of medications called beta blockers. It works by relaxing blood vessels and slowing heart rate to improve blood flow and decrease blood pressure. High blood pressure is a common condition and when not treated, can cause damage to the brain, heart, blood vessels, kidneys and other parts of the body. Damage to these organs may cause heart disease, a heart attack, heart failure, stroke, kidney failure, loss of vision, and other problems. In addition to taking medication, making lifestyle changes will also help to control your blood pressure. These changes include eating a diet that is low in fat and salt, maintaining a healthy weight, exercising at least 30 minutes most days, not smoking, and using alcohol in moderation. HOW should this medicine be used? Metoprolol comes as a tablet, an extended-release (long-acting) tablet, and an extended-release capsule to take by mouth. The regular tablet is usually taken once or twice a day with meals or immediately after meals. The extended-release tablet and extended-release capsule are usually taken once a day. To help you remember to take metoprolol, take it around the same time(s) every day. Follow the directions on your prescription label carefully, and ask your doctor or pharmacist to explain any part you do not understand. Take metoprolol exactly as directed. Do not take more or less of it or take it more often than prescribed by your doctor. The extended-release tablet may be split. Swallow the whole or half extended-release tablets whole; do not chew or crush them. Swallow the extended-release capsules whole; do not split, chew, or crush them. If you are unable to swallow the capsules, you may open the capsule and sprinkle the contents over a spoonful of soft food, such as applesauce, pudding, or yogurt and swallow the mixture immediately. Do not swallow the mixture more than 60 minutes after you sprinkle the contents of the capsule. Your doctor may start you on a low dose of metoprolol and gradually increase your dose. Metoprolol helps to control your condition but will not cure it. Continue to take metoprolol even if you feel well. Do not stop taking metoprolol without talking to your doctor. If you suddenly stop taking metoprolol you may experience serious heart problems such as severe chest pain, a heart attack, or an irregular heartbeat. Your doctor will probably want to decrease your dose gradually over 1 to 2 weeks and will monitor you closely. Are there OTHER USES for this medicine? Metoprolol is also used sometimes to treat certain types of irregular heartbeats. Talk to your doctor about the possible risks of using this medication for your condition. This medication may be prescribed for other uses; ask your doctor or pharmacist for more information. What SPECIAL PRECAUTIONS should I follow? Before taking metoprolol, ? tell your doctor and pharmacist if you are allergic to metoprolol, any other medications, or any of the ingredients in metoprolol tablets, extended-release tablets, or extended-release capsules. Ask your pharmacist for a list of the ingredients. ? tell your doctor and pharmacist what prescription and nonprescription medications, vitamins, nutritional supplements, and herbal products you are taking or plan to take. Your doctor may need to change the doses of your medications or monitor you carefully for side effects. ? tell your doctor if you have a slow or irregular heartbeat or heart failure. Your doctor may tell you not to take metoprolol. ? tell your doctor if you have or have ever had asthma or other lung diseases; problems with blood circulation; pheochromocytoma (a tumor that develops on a gland near the kidneys and may cause high blood pressure and fast heartbeat); heart or liver disease;diabetes; or hyperthyroidism (an overactive thyroid gland). Also tell your doctor if you have ever had a serious allergic reaction to a food or any other substance. ? tell your doctor if you are , plan to become , or are . If you become while taking metoprolol, call your doctor. ? if you are having surgery, including dental surgery, tell the doctor or dentist that you are taking metoprolol. ? you should know that metoprolol may make you drowsy. Do not drive a car or operate machinery until you know how this medication affects you. ? do not drink any alcoholic drinks or take any prescription or nonprescription medications that contain alcohol if you are taking metoprolol extended-release capsules. Ask your doctor or pharmacist if you do not know if a medication that you plan to take contains alcohol. ? you should know that metoprolol may increase the risk of hypoglycemia (low blood sugar) and prevent the warning signs and symptoms that would tell you that your blood sugar is low. Let your doctor know if you are unable to eat or drink normally or are vomiting while you are taking metoprolol. You should know the symptoms of low blood sugar and what to do if you have these symptoms. ? you should know that if you have allergic reactions to different substances, your reactions may be worse while you are using metoprolol, and your allergic reactions may not respond to the usual doses of injectable epinephrine. What SPECIAL DIETARY instructions should I follow? IUnless your doctor tells you otherwise, continue your normal diet. What should I do IF I FORGET to take a dose? Skip the missed dose and continue your regular dosing schedule. Do not take a double dose to make up for a missed one. What SIDE EFFECTS can this medicine cause? Some side effects can be serious. The following symptoms are uncommon, but if you experience any of them, call your doctor immediately: ? shortness of breath or difficulty breathing ? wheezing ? swelling of the hands, feet, ankles, or lower legs ? weight gain ? fainting ? rapid, pounding, or irregular heartbeat Metoprolol may cause other side effects. Call your doctor if you have any unusual problems while taking this medication. If you experience a serious side effect, you or your doctor may send a report to the Food and Drug Administration's (FDA) MedWatch Adverse Event Reporting program online (https://www.fda.gov/Safety/MedWatch) or by phone ( ). What should I know about STORAGE and DISPOSAL of this medication? Keep this medication in the container it came in, tightly closed, and out of reach of children. Store it at room temperature and away from excess heat and moisture (not in the bathroom). It is important to keep all medication out of sight and reach of children as many containers (such as weekly pill minders and those for eye drops, creams, patches, and inhalers) are not child-resistant and young children can open them easily. To protect young children from poisoning, always lock safety caps and immediately place the medication in a safe location - one that is up and away and out of their sight and reach. https://www.GPMESS.org Unneeded medications should be disposed of in special ways to ensure that pets, children, and other people cannot consume them. However, you should not flush this medication down the toilet. Instead, the best way to dispose of your medication is through a medicine take-back program. Talk to your pharmacist or contact your local garbage/recycling department to learn about take-back programs in your community. See the FDA's Safe Disposal of Medicines website (https://goo.gl/c4Rm4p) for more information if you do not have access to a take-back program. What should I do in case of OVERDOSE? In case of overdose, call the poison control helpline at . Information is also available online at https://www.poisonhelp.org/help. If the victim has collapsed, had a seizure, has trouble breathing, or can't be awakened, immediately call emergency services at 561. Symptoms of overdose may include the following: ? nausea ? vomiting ? decreased consciousness or loss of consciousness (coma) ? irregular, fast, or slow heartbeat ? chest pain ? dizziness ? fatigue or weakness ? fainting ? difficulty breathing ? cough or wheezing ? swelling of the hands, feet, ankles, or lower legs What OTHER INFORMATION should I know? Keep all appointments with your doctor. Your blood pressure should be checked regularly to determine your response to metoprolol. Your doctor may ask you to check your pulse (heart rate). Ask your pharmacist or doctor to teach you how to take your pulse. If your pulse is faster or slower than it should be, call your doctor. Do not let anyone else take your medication. Ask your pharmacist any questions you have about refilling your prescription. It is important for you to keep a written list of all of the prescription and nonprescription (arev-esc-cfduxal) medicines you are taking, as well as any products such as vitamins, minerals, or other dietary supplements. You should bring this list with you each time you visit a doctor or if you are admitted to a hospital. It is also important information to carry with you in case of emergencies. This report on medications is for your information only, and is not considered individual patient advice. Because of the changing nature of drug information, please consult your physician or pharmacist about specific clinical use. The [employer] represents that the information provided hereunder was formulated with a reasonable standard of care, and in conformity with professional standards in the field. The [employer] makes no representations or warranties, express or implied, including, but not limited to, any implied warranty of merchantability and/or fitness for a particular purpose, with respect to such information and specifically disclaims all such warranties. Users are advised that decisions regarding drug therapy are complex medical decisions requiring the independent, informed decision of an appropriate health care tech, and the information is provided for informational purposes only. The entire monograph for a drug should be reviewed for a thorough understanding of the drug's actions, uses and side effects. The [employer] does not endorse or recommend the use of any drug. The information is not a substitute for medical care. AHFS? Patient Medication Information?. ? Copyright, 2023. [employer]?, [address], [address], [place], [place]. All Rights Reserved. Duplication for commercial use must be authorized by [facility]. Selected Revisions: November 04, 2022. AHFS? Patient Medication Information?. ? Copyright, 2024 [id number] 12:02:51 Images from the original note were not included. [id number] Lactulose Brand Name(s): Cholac?, Constilac? Syrup, Constulose?, Enulose?, Evalose? Syrup, Generlac?, Heptalac?, Kristalose?, Laxilose?, Portalac?; also available generically WHY is this medicine prescribed? Lactulose is a synthetic sugar used to treat constipation. It is broken down in the colon into products that pull water out from the body and into the colon. This water softens stools. Lactulose is also used to reduce the amount of ammonia in the blood of patients with liver disease. It works by drawing ammonia from the blood into the colon where it is removed from the body. This medication is sometimes prescribed for other uses; ask your doctor or pharmacist for more information. HOW should this medicine be used? Lactulose comes as liquid to take by mouth. It usually is taken once a day for treatment of constipation and three or four times a day for liver disease. Your prescription label tells you how much medicine to take at each dose. Follow the directions on your prescription label carefully, and ask your doctor or pharmacist to explain any part you do not understand. Take lactulose exactly as directed. Do not take more or less of it or take it more often than prescribed by your doctor. What SPECIAL PRECAUTIONS should I follow? Before taking lactulose, ? tell your doctor and pharmacist if you are allergic to lactulose or any other drugs. ? Tell your doctor and pharmacist what prescription and nonprescription medications, vitamins, nutritional supplements, and herbal products you are taking or plan to take while taking lactulose. Your doctor may need to change the doses of your medications or monitor you carefully for side effects. ? The following nonprescription products may interact with lactulose: antacids, neomycin, and other laxatives. Be sure to let your doctor and pharmacist know that you are taking these medications before you start taking lactulose. Do not start any of these medications while taking lactulose without discussing with your healthcare provider. ? tell your doctor if you have diabetes or require a low-lactose diet. ? tell your doctor if you are , plan to become , or are breast-feeding. If you become while taking lactulose, call your doctor. ? if you are having surgery or tests on your colon or rectum, tell the doctor that you are taking lactulose. What should I do IF I FORGET to take a dose? Take the missed dose as soon as you remember it. However, if it is almost time for the next dose, skip the missed dose and continue your regular dosing schedule. Do not take a double dose to make up for a missed one. What SIDE EFFECTS can this medicine cause? If you have any of the following symptoms, stop taking lactulose and call your doctor immediately: ? stomach pain or cramps ? vomiting If you experience a serious side effect, you or your doctor may send a report to the Food and Drug Administration's (FDA) MedWatch Adverse Event Reporting program online (https://www.fda.gov/Safety/MedWatch) or by phone ( ). What should I know about STORAGE and DISPOSAL of this medication? Keep this medication in the container it came in, tightly closed, and out of reach of children. Store it at room temperature and away from excess heat and moisture (not in the bathroom). Unneeded medications should be disposed of in special ways to ensure that pets, children, and other people cannot consume them. However, you should not flush this medication down the toilet. Instead, the best way to dispose of your medication is through a medicine take-back program. Talk to your pharmacist or contact your local garbage/recycling department to learn about take-back programs in your community. See the FDA's Safe Disposal of Medicines website (https://goo.gl/c4Rm4p) for more information if you do not have access to a take-back program. It is important to keep all medication out of sight and reach of children as many containers (such as weekly pill minders and those for eye drops, creams, patches, and inhalers) are not child-resistant and young children can open them easily. To protect young children from poisoning, always lock safety caps and immediately place the medication in a safe location - one that is up and away and out of their sight and reach. https://www.upandaway.org What OTHER INFORMATION should I know? Keep all appointments with your doctor. To improve the taste of lactulose, mix your dose with one-half glass of water, milk, or fruit juice. Do not let anyone else take your medicine. Ask your pharmacist any questions you have about refilling your prescription. It is important for you to keep a written list of all of the prescription and nonprescription (tvec-qii-nrgnmxo) medicines you are taking, as well as any products such as vitamins, minerals, or other dietary supplements. You should bring this list with you each time you visit a doctor or if you are admitted to a hospital. It is also important information to carry with you in case of emergencies. This report on medications is for your information only, and is not considered individual patient advice. Because of the changing nature of drug information, please consult your physician or pharmacist about specific clinical use. The [employer] represents that the information provided hereunder was formulated with a reasonable standard of care, and in conformity with professional standards in the field. The [employer] makes no representations or warranties, express or implied, including, but not limited to, any implied warranty of merchantability and/or fitness for a particular purpose, with respect to such information and specifically disclaims all such warranties. Users are advised that decisions regarding drug therapy are complex medical decisions requiring the independent, informed decision of an appropriate health care tech, and the information is provided for informational purposes only. The entire monograph for a drug should be reviewed for a thorough understanding of the drug's actions, uses and side effects. The [employer] does not endorse or recommend the use of any drug. The information is not a substitute for medical care. AHFS? Patient Medication Information?. ? Copyright, 2023. [employer]?, [address], [address], [place], [place]. All Rights Reserved. Duplication for commercial use must be authorized by [facility]. Selected Revisions: March 06, 2023. AHFS? Patient Medication Information?. ? Copyright, 2024 [facility] [id number] 12:01:09 Images from the original note were not included. [id number] Discharge Instructions for Acute Kidney Injury You have been diagnosed with acute kidney injury. This means that you have had a sudden episode of kidney failure or damage that causes your kidneys not to work correctly. When both kidneys are healthy, they help filter out fluid and waste from the blood and body. Acute kidney injury has many causes. These include urinary blockages, infection, lack of enough blood supply, and medicines that can injure kidneys. In some cases, acute kidney injury is short-term (temporary). This type lasts several days to a few months. This is because the kidney can repair itself. Acute kidney injury can also result in chronic kidney disease or end stage renal failure. Here are some directions for you to follow as you recover. Home care ? Weigh yourself every day, at the same time of day, and in the same kind of clothes. Keep a daily record of your daily weights. ? Take your temperature every day. Keep a record of the results. ? Learn to take your own blood pressure (BP). Your healthcare provider can teach you how to correctly measure your BP. Keep a record of your results. Bring the record to your follow-up appointments. Ask your healthcare provider when you should seek emergency medical attention. Your provider will tell you what blood pressure reading is dangerous. ? Stay away from people who have infections. This includes people with colds, bronchitis, or skin conditions. ? Practice good personal hygiene. Wash your hands often. This is especially important if you have a catheter in place when you leave the hospital. Doing so helps keep you safe from infection. ? Take your medicines exactly as directed. ? You may need frequent blood and urine tests. These are done to keep track of your kidney function. Follow-up care Follow up with your healthcare provider, or as advised. When to call your healthcare provider Call your healthcare provider right away if any of the following occur: ? Signs of bladder infection, such as urinating more often, burning or pain when you pee, pain above your pubic bone, blood in your urine, or trouble starting your urine stream ? Rapid weight loss or weight gain, such as 3 pounds or more in 24 hours or 6 pounds or more in 7 days ? Fever above 100.4? F ( 38?C ) or as directed by your healthcare provider ? Chills ? Muscle aches ? Night sweats ? Very little or no urine output ? Swelling of your hands, legs, or feet ? Back pain ? Abdominal (belly) pain ? Extreme tiredness Last Reviewed Date: 2022 00:00:00 ? [id number] [employer]. All rights reserved. This information is not intended as a substitute for professional medical care. Always follow your healthcare professional's instructions.This information has been modified by your health care provider with permission from the publisher. [facility] [id number] 11:59:37 Images from the original note were not included. [id number] Living with Atrial Fibrillation: Preventing Stroke Atrial fibrillation (AFib) is the most common abnormal heart rhythm. The heart has 2 upper chambers called atria and 2 lower chambers called ventricles. AFib causes the atria to quiver (fibrillate) instead of pumping normally. Blood can then pool in the heart instead of moving in and out as usual. This can cause blood clots to form in the heart. A clot can break free, travel to the brain, and cause a stroke. A stroke can quickly damage the brain. Taking medicine to prevent stroke Your health care provider may prescribe a medicine to help prevent blood clots if you have AFib. This type of medicine is called a blood thinner. Blood thinners include: ? Antiplatelet medicines, such as aspirin or clopidogrel ? Anticoagulant medicines, such as warfarin, or medicines called direct-acting oral anticoagulants (DOACs). These include dabigatran, rivaroxaban, apixaban, betrixaban, and edoxaban. Risks of blood thinner medicine Blood thinners raise your risk of bleeding. If you take certain blood thinners, you may need to take extra steps to stay healthy. Depending on the blood thinner, you may need regular blood tests to check the levels of medicine in your blood. You?ll need to be careful not to injure yourself. And you may need to watch your diet for foods that affect blood clotting. Tell your health care provider if you are or plan to get . Many blood thinners can cause defects or bleeding that may harm your unborn child. If your blood is too thin, you may have symptoms of excess bleeding. Call your provider right away if you have any of these symptoms: ? Coughing or vomiting blood or other things that look like coffee grounds. ? Nosebleeds frequently that do not stop quickly. ? Unusual bruising or blood blisters. ? Feel sick, weak, faint, or dizzy. ? Blood in the urine or stool. ? Black stools. ? Bleeding more during your periods or between periods. ? Bleeding gums that do not stop quickly. ? Headache. ? Stomachache. Taking the right dose Take the medicine exactly as directed by your provider. Take it at the same time each day. If you miss a dose, call your provider right away to find out how much to take. Never take a double dose. If you take too much, it can cause too much bleeding. It can cause bleeding you can see on the outside of your body. It can also cause bleeding on the inside of your body that you may not be aware of. Getting your blood tested If you take DOACs, you don't need regular blood testing. But you may need to have your kidneys checked regularly. Your provider will discuss this with you. If you take warfarin, you will need to have your blood closely kept track of and tested on a regular schedule. This is to make sure you don?t have too much or too little of the medicine in your blood. Too much can cause extra bleeding. Too little may not prevent blood clots from harming you. You may need to visit a hospital or clinic every week, or as advised, to have your blood tested. A provider may come to your home and test your blood or you may be able to test your blood at home yourself with a small machine. Talk with your provider to find out what?s best for you. After the blood test, your provider may tell you to change your dose of medicine. Watching your diet Warfarin levels can change with your diet. For example, many foods contain vitamin K. Vitamin K helps your blood clot. You don?t need to stop eating foods that have vitamin K. But you do need to keep the amount of them you eat as steady as possible from day to day. Foods high in vitamin K are asparagus, avocado, broccoli, cabbage, kale, spinach, and some other leafy green vegetables. Soybean, canola, and olive oils are also high in vitamin K. Other foods and drinks can affect the way blood thinners work in your body. These include: ? Grapefruit and grapefruit juice. ? Cranberries and cranberry juice. ? Fish oil supplements. ? Calcium supplements. ? Garlic, estefania, licorice, and turmeric. ? Herbs used in herbal teas or supplements. ? Alcohol. If any of these items are part of your regular diet, talk with your health care providers about any changes that may be recommended. Preventing injury Because blood thinners make you bleed more, you?ll need to protect yourself from breaks in the skin. Follow these guidelines: ? Don't go barefoot. Always wear shoes. ? Don't trim corns or calluses yourself. ? Use an electric razor instead of a manual one. ? Use a soft-bristled toothbrush and waxed dental floss. You?ll also need to not do any activities that may cause injury. If you fall or are injured, you could be bleeding inside your body and not know it. Get emergency medical care right away if you fall, hit your head, or have any other kind of injury. Other safety tips While on your medicine: ? Tell all of your health care providers that you take a blood thinner for AFib. This includes your dental care providers and your pharmacist. ? Ask your provider before taking any new medicines, vitamins, or other supplements. Any of these can cause problems when you take a blood thinner. ? Wear a medical alert bracelet or carry an ID card in your wallet if you will be taking blood thinners for months or longer. ? Keep all appointments for your blood tests. Procedures to prevent stroke Most blood clots that form in the heart occur in a pouch of the left atrium called the appendage. This pouch can often be large and have multiple lobes. Blood often pools and forms clots here. Left atrial appendage closure is a nonsurgical procedure in which a plug is placed at the opening of the left atrial appendage. This closes it off from the rest of the heart. Once the plug has sealed, no blood can enter or leave the pouch. This reduces blood clot formation and stroke risk. It often does not need you to use blood thinners for the long-term except for aspirin. Ask your health care provider if you qualify for this type of procedure. Other ways to help prevent stroke Your provider might give you other advice about how to lower your risk for stroke. Tips include: ? Lower your cholesterol with lifestyle changes or medicine. ? Don't smoke. ? Get physical activity. ? Lose weight if needed. ? Eat a heart-healthy diet. ? Don't drink too much alcohol. Call 911 Call 911 right away if you have symptoms of a stroke. Remember: If you have any of the symptoms below, or if someone you are with has these symptoms, call 911 as soon as possible[address] Never drive yourself or the victim. The ambulance can alert the hospital and start treatment. B.E. F.A.S.T. is an easy way to remember signs of a stroke. When you see these signs, you will know that you need to call 911 fast. B.E. F.A.S.T. stands for: ? B is for balance. Sudden loss of balance or coordination or trouble walking. ? E is for eyes. Vision changes in 1 or both eyes. ? F is for face drooping. One side of the face is drooping or numb. When the person smiles, the smile is uneven. ? A is for arm weakness. One arm is weak or numb. When the person lifts both arms at the same time, 1 arm may drift downward. ? S is for speech difficulty. You may notice slurred speech or difficulty speaking. The person can't repeat a simple sentence correctly when asked. ? T is for time to dial 911. If someone shows any of these symptoms, even if they go away, call 911 right away. Make note of the time the symptoms first appeared. Also call 911 right away if: ? You have sudden confusion. ? You have an unusual or severe headache. ? You have chest pain. ? You have trouble breathing or shortness of breath. ? You have uncontrolled bleeding. When to call your doctor Contact your health care provider or get medical care right away if: ? You feel sick, weak, faint, or dizzy. ? There's a change in the usual regularity of your heartbeat. ? You are fatigued. ? You have a fever of 100.4?F or 38?C or higher, or as advised by your provider. ? You have new or worse symptoms of AFib. Last Reviewed Date: 2024 00:00:00 ? [id number] [employer]. All rights reserved. This information is not intended as a substitute for professional medical care. Always follow your healthcare professional's instructions. [id number]35 Images from the original note were not included. [id number] Discharge Instructions for Atrial Fibrillation You have been diagnosed with an abnormal heart rhythm called atrial fibrillation (AFib). This means your heart?s 2 upper chambers quiver rather than squeeze the blood out in a normal pattern. This leads to an irregular and sometimes rapid heartbeat. Some people will have symptoms, such as a flip-flopping heartbeat, chest pain, lightheadedness, or shortness of breath. Other people may have no symptoms at all. AFib is serious because it affects the heart?s ability to fill with blood as it should. Blood clots may form. This increases the risk for stroke. Untreated, it can also lead to heart failure. A-Fib can be controlled. With treatment, most people lead normal lives. Treatment choices Treatment for AFib depends on your age, symptoms, how long you have had it, and other factors. You will have a complete evaluation to find out if you have any abnormalities that caused your heart to go into AFib. This might be blocked heart arteries, heart valve problems, or a thyroid problem. Your healthcare provider will assess your case and discuss choices with you. Treatment choices may include: ? Treating an underlying disorder that puts you at risk for atrial fibrillation. For example, correcting an abnormal thyroid or electrolyte problem, or treating a blocked heart artery. ? Restoring a normal heart rhythm with an electrical shock (cardioversion) or with an antiarrhythmic medicine (chemical cardioversion). ? Using medicine to control your heart rate and rhythm. ? Taking blood-thinning medicines (anticoagulants). These lower the risk for blood clot and stroke. Blood-thinners range from aspirin and clopidogrel to others, such as rivaroxaban and warfarin. ? Having a procedure, such as left atrial appendage closure. In this procedure, a small pouch in the top of your atrium is blocked off. This pouch is where blood clots often form. The procedure can prevent blood clots and reduce stroke risk without the need for a blood thinner. ? Doing catheter ablation or a surgical maze procedure. These procedures use different methods to create scar tissue in certain areas of heart. This stops the abnormal electrical signals that cause AFib. This may be a choice when medicines don't work. It may be used instead of taking a medicine long wall shear operator. Your provider may advise other treatment choices. Managing risk factors for stroke and preventing heart failure are important parts of any treatment plan for AFib. Home care ? Take your medicines exactly as directed. Don?t skip doses. ? Work with your healthcare provider to find the right medicines and doses for you. ? Learn to take your own pulse. Keep a record of your results. Ask your provider which pulse rates mean that you need medical attention. Slowing your pulse is often the goal of treatment. Ask your provider if it?s OK for you to use an automatic machine to check your pulse at home. Sometimes these machines don?t count the pulse correctly with atrial fibrillation. ? Limit how much coffee, tea, cola, and other drinks with caffeine you have. Ask your provider if you should cut out all caffeine. ? Don't take tuhd-uyo-gwabegn medicines that have caffeine in them. Also don't take medicines with pseudoephedrine. ? Let your provider know what medicines you take. These include prescription and itka-wsx-mmbqrsh medicines, as well as any supplements. They interfere with some medicines given for AFib. ? Ask your provider if you can drink alcohol. Some people need to cut out alcohol to better treat AFib If you are taking blood-thinner medicines, alcohol may interfere with them by increasing their effect. ? Never take stimulants, such as amphetamines or cocaine. These drugs can speed up your heart rate and set off AFib. ? Manage your weight. If you are above your ideal body weight, losing excess pounds can reduce your incidence of AFib. Follow-up care Follow up with your healthcare provider as advised. When to call your healthcare provider Call your healthcare provider right away if you have any of the following: ? Weakness ? Dizziness ? Fainting ? Tiredness (fatigue) ? Shortness of breath ? Chest pain with increased activity ? A change in the usual regularity of your heartbeat, or an unusually fast heartbeat Last Reviewed Date: 2024 00:00:00 ? [id number] [employer]. All rights reserved. This information is not intended as a substitute for professional medical care. Always follow your healthcare professional's instructions. [facility]2025-04-07 11:59:20 Images from the original note were not included. 06003 Discharge Instructions for Heart Failure The heart is a muscle that pumps oxygen-rich blood to all parts of the body. When you have heart failure, the heart is not able to pump as well as it should. Blood and fluid may back up into the lungs. Some parts of the body don?t get enough oxygen-rich blood to work normally. These problems lead to the symptoms of heart failure. Heart failure can occur because of an injury to the heart or from natural processes. You can control symptoms of heart failure with some lifestyle changes and by following your health care provider's advice. Activity Ask your health care provider about an exercise program. Simple activities, such as walking or gardening, can help. Exercising most days of the week can make you feel better. Don't be discouraged if your progress is slow at first. Rest as needed. Stop activity if you get symptoms, such as chest pain, lightheadedness, or shortness of breath. Find activities that you enjoy. Examples might be brisk walking, dancing, swimming, and gardening. These will help you stay active and strengthen your heart. Ask your provider about cardiac rehab. This is a program that helps you to exercise safely. Diet Follow a heart healthy diet. And make sure to limit the salt (sodium) in your diet. Salt causes your body to hold water. This makes your heart work harder because there is more fluid for the heart to pump. Limit your salt as directed by your provider by doing the following: ? Limit canned, dried, packaged, and fast foods. ? Don't add salt to your food. ? Season foods with herbs instead of salt. ? Watch how much liquids you drink. Drinking too much can make heart failure worse. Talk with your provider about how much you should drink each day. ? Limit the amount of alcohol you drink. It may harm your heart. Women should have no more than 1 drink a day. Men should have no more than 2 a day. ? Ask that your meals have no added salt when you eat out. ? Talk with your provider before using salt substitutes. They often have potassium in them. This may not be good for your health. This will depend on how well your kidneys are working and what medicines you?re taking. Some people need extra potassium. Others don?t. Tobacco It's important to quit if you smoke. Smoking increases your chances of having a heart attack by harming the blood vessels that provide oxygen to your heart. This makes heart failure worse. Quitting smoking is the number one thing you can do to improve your health. Enroll in a stop-smoking program to improve your chances of success. Talk with your health care provider about medicines or nicotine replacement therapy. Also ask your provider about smoking cessation support groups. Medicine Take your medicines exactly as prescribed. Learn the names and purpose of each of your medicines. Keep an accurate medicine list and current dosages with you at all times. Don't skip doses. If you miss a dose of your medicine, take it as soon as you remember. If you miss a dose and it's almost time for your next dose, just wait and take your next dose at the normal time. Don't take a double dose. If you are unsure, call your provider's office. Make sure not to mix up your medicines or forget what you've taken the same day. Refill your prescriptions before you run out of medicine. Talk with your health care provider if you have trouble with the cost of your medicines. Weight monitoring Weigh yourself every day. A sudden weight gain can mean your heart failure is getting worse. Weigh yourself at the same time of day and in the same kind of clothes. Ideally, weigh yourself first thing in the morning after you empty your bladder, but before you eat breakfast. Your provider will show you how to track your weight. Call your provider if you have a sudden, unexpected increase in your weight. Your provider may ask you to report if your weight goes up by more than 2 pounds in 1 day, 5 pounds in 1 week, on average. This is a sign that you are retaining more fluid than you should be. Clues to weight gain include checking your ankles for swelling, or noticing you are short of breath when you lie down. Follow-up care Have a follow-up appointment as instructed. Depending on the type and severity of heart failure you have, you may need follow up within 7 days from hospital discharge. Keep appointments for checkups and lab tests that are needed to check your medicines and condition. Recognize that your health and even survival depend on you following your provider's advice. Symptoms Heart failure can cause a variety of symptoms. They include: ? Shortness of breath. ? Trouble breathing at night, especially when you lie down. ? Swelling in the legs and feet or in the belly (abdomen). ? Becoming easily tired. ? Irregular or rapid heartbeat. ? Weakness or lightheadedness. ? Swelling of the neck veins. It's important to know what to do if symptoms get worse or if you develop signs of heart failure getting worse. Keep track of how you feel each day. Report any changes to your health care provider. When to call your doctor Contact your health care provider right away if: ? You have sudden weight gain. This means more than 2 pounds in 1 day or 5 pounds in 1 week. Or it could be whatever weight gain you were told to report by your provider. ? You have trouble breathing that's not related to being active. ? There's new or increased swelling of your legs or ankles. ? You have swelling or pain in your abdomen (belly). ? You have trouble breathing at night. This means waking up short of breath or needing more pillows to breathe. ? You have frequent coughing that doesn't go away. ? You're feeling much more tired than usual. Call 911 Call 911 right away if: ? You are severely short of breath, such that you can't catch your breath even while resting. ? You have severe chest pain that doesn't get better with rest or nitroglycerin. ? You have pink, foamy mucus with cough and shortness of breath. ? You have an ongoing rapid or irregular heartbeat. ? You are passing out or fainting. ? You have stroke symptoms, such as sudden numbness or weakness on one side of your face, arm, or leg or sudden confusion, trouble speaking or vision changes. Last Reviewed Date: 2024 00:00:00 ? [id number] [employer]. All rights reserved. This information is not intended as a substitute for professional medical care. Always follow your healthcare professional's instructions. Alejandra [id number] 11:59:10 Images from the original note were not included. [id number] Learning About Metabolic Encephalopathy What is metabolic encephalopathy? Metabolic encephalopathy is a problem in the brain. It is caused by a chemical imbalance in the blood. The imbalance is caused by an illness or organs that are not working as well as they should. It is not caused by a head injury. When the imbalance affects the brain, it can lead to personality changes. It can also make it harder to think clearly and remember things. The problems may only last a short time if you get treatment right away. But this depends on the cause. If the imbalance has been building up because you've been sick for a long time, the mental changes may be more severe. They may also last longer. What happens when you have this problem? When things are working right, your body has many ways to keep the chemicals in your blood in balance. For example, your liver and kidneys remove waste from your blood. The kidneys also help keep fluids and sodium in balance. And your pancreas makes insulin. It is a hormone that helps control the amount of sugar in your blood. But the chemicals in your blood can get out of balance and damage parts of your body because of a medical problem. This may be kidney or liver failure. Or it could be diabetes that isn't controlled well. When the imbalance affects the brain, normal thinking and behavior can change. What are the symptoms? Symptoms may include: ? Confusion. ? Problems with thinking and remembering. ? Being grouchy and depressed. ? Feeling drowsy. ? Not being able to sleep. ? Passing out (fainting) now and then. How is it treated? The doctor will try to find the illness that's causing the problem. The doctor may ask questions about your past health. The doctor will also do tests to find what is causing the chemical imbalance and to see how severe it is. The doctor may treat the organ system that's causing the problem. For example, if it's a kidney problem, you may have treatment to help your kidneys work better. If you have an infection, you may need antibiotics. If the doctor can't treat the cause of the problem, the doctor will treat the symptoms. The doctor will carefully watch your blood chemicals to make sure that your treatment is being done safely. Follow-up care is a ayers part of your treatment and safety. Be sure to make and go to all appointments, and call your doctor if you are having problems. It's also a good idea to know your test results and keep a list of the medicines you take. Current as of: February 08, 2023 Content Version: 14.0 Care instructions adapted under license by your healthcare professional. If you have questions about a medical condition or this instruction, always ask your healthcare professional. [employer] disclaims any warranty or liability for your use of this information. ? [id number] [employer]. [facility]2025-04-07 08:53:00 Images from the original note were not included. 14 Heart-Healthy Diet Five Tips to Better Health A heart-healthy diet is designed to protect your heart from further damage through long-term diet and lifestyle changes. Along with your medication and exercise, a heart-healthy diet can help reduce your risk for heart-related problems. The heart-healthy meal plan is based on limiting total fat, saturated fat, cholesterol and sodium while increasing your intake of fiber and omega-3 fatty acids (good fats). When making changes in your diet: "Take Five" 1. Limit saturated fat and trans fats. Remember DART to identify common sources: Dairy (e.g., whole milk, cream, butter and regular cheese) - Animal fat (e.g., steak or chicken with skin) - Restaurant dishes, some fried foods - Treats (chocolate, cookies and other baked goods, and products with "partially hydrogenated oils" in the ingredient list) 2. Limit the amount of cholesterol you eat to less than 200 mg (milligrams) per day. Foods high in cholesterol include egg yolks, fatty meat, whole milk and regular cheese. 3. Cut back on sodium by getting rid of the saltshaker and avoiding high-sodium foods like deli meats, frozen meals, condiments, canned foods and other convenience items. Check the label and choose foods with no more than 140 mg of sodium per serving. 4. Get more fiber. Aim for 20 to 30 grams of fiber per day from sources like whole grains, fruit, vegetables, and beans. 5. Eat approximately 4 ounces of fish twice a week to get more omega-3 fatty acids. [place], cod, trout and tuna are high in omega-3s. Try low-sodium canned tuna for a less expensive option. Other Heart-Healthy diet information: ? Check with your doctor before drinking ANY alcohol. ? Use caffeine (coffee, tea, soft drinks) in moderation. Caffeine may affect your blood pressure and heart health. ? When dining out: o Ask for nutrition information to help stay on track with your heart-healthy diet. o Ask for sauces and dressings on the side. ? Read the Nutrition Facts label to be sure you are following the Heart-Healthy Guidelines. Heart-Healthy Diet Food Group Avoid Better Choices Milk/Dairy Whole milk Regular or processed cheese products Cream Nonfat (skim) or 1% milk Cheeses low in saturated fat and sodium Nonfat or low-fat yogurt Meat/ Protein Regular ground meats Deep-fried meats Fatty cuts such as ribeye or brisket White meat poultry without sl? Fresh fish or low-sodium canned fish Lean beef cuts: round steak, tenderloin, sirloin tips Vegetable protein foods, like beans, veggie burgers or tofu Ground sirloin or round Vegetables & Fruits Fried fruit such as plantain or fried fruit pies Fruits served with butter or cream Vegetables canned with sodium Fresh fruits and vegetables Frozen fruits and vegetables, no added sauces, gravies or salted seasonings Bread & Cereals High-fat bakery products, such as doughnuts, biscuits or croissants Snacks made with partially hydrogenated oils, like cheese puffs Products with whole grains as the first ingredient Breads with at least 2 grams of fiber per serving Cereals that contain at least 5 grams of fiber per serving Snacks like air-popped popcorn, low-salt pretzels Fats Butter Lard Partially hydrogenated oils Monounsaturated fats such as olive, grapeseed, or canola oil Whipped spreads Spreads with zero trans fat Reading a Food Label Reference: Academy of Nutrition and Dietetics, Adult Nutrition Care Manual, 2012. If you would like to obtain more information on a heart-healthy diet, please contact [facility] by calling [phone]. [id number] 10/02 Alejandra [id number] 08:52:55 Images from the original note were not included. [id number] How to Quit Smoking Smoking is a hard habit to break. About half of all people who've ever smoked have been able to quit. Most people who still smoke want to quit. Here are some of the best ways to stop smoking. Keep in mind how quitting can help your health The health benefits of quitting start right away. They keep improving the longer you go without smoking. Knowing this can help inspire you to stay on track. These benefits occur at any age. Quitting is a good choice whether you are 17 or 70. Some of the health benefits after your last cigarette include: ? After 20 minutes. Your blood pressure and heart rate return to normal. ? After 12 to 72 hours. Your carbon monoxide levels in your blood return to normal. ? After 2 days. Your ability to smell and taste start to get better as damaged nerves regrow. ? After 2 weeks to 3 months. Your circulation and lung function get better. ? After 1 week to 9 months. You have less coughing, congestion, and shortness of breath. You feel less tired. ? After 1 to 2 years. Your risk of heart attack goes down by 50% compared to a user of cigarettes or tobacco products. ? After 10 years. Your risk of lung cancer goes down by 50%. ? After 15 years. Your risk of stroke becomes the same as a nonsmoker. What about going cold turkey? You may have heard about quitting "cold turkey." This means stopping all at once. Going cold turkey is a choice. But it's not the most successful way to quit smoking. Trying to cut back slowly often doesn't work as well either. This may be because it continues the habit of smoking. You may also inhale more smoke while smoking fewer cigarettes. This leads to the same amount of nicotine in your body. But quitting cold turkey or cutting back slowly aren't your only choices. Using tobacco cessation medicines with behavioral counseling may be a better choice to help you succeed. Talk with your health care provider about your choices for support while you quit smoking. Get support Support programs can be a big help, especially for heavy smokers. These groups offer information, ways to change behavior, and peer support. Ask your health care provider for some resources. Here are some other ways to find support: ? Smokefree.gov at www.smokefree.gov or 052-XGSU-JZL (834-690-9685) ? [place] [employer] at www.lung.org/quit-smoking or 287-230-9837 ? [place] [employer] at www.cancer.org/quitsmoking or 297-137-7745 Support at home is important too. Family and friends can offer praise and reassurance. Ask your friends who smoke to support your decision. Try to stay away from situations that set off the desire to smoke. This may include smoking with your morning coffee. Or smoking after a meal. Create new routines to help decrease your cravings. If the smoker in your life finds it hard to quit, encourage them to keep trying. Remind them of all of the benefits to themselves and people they love. Try [id number] nicotine replacements Nicotine replacement therapy may make it easier to quit. You can buy some aids without a prescription. These include a nicotine patch, gum, and lozenges. But it's best to use these under the care of your health care provider. The skin patch gives a steady supply of nicotine. Nicotine gum and lozenges give short-time doses of low levels of nicotine. Both methods reduce the craving for cigarettes. If you have upset stomach (nausea), vomiting, dizziness, weakness, or a fast heartbeat, stop using these products and see your provider. Ask about prescription medicine After reviewing your smoking patterns and past attempts to quit, your health care provider may offer a prescription medicine. These include bupropion, varenicline, a nicotine inhaler, or nasal spray. Each has advantages and side effects. Your provider can go over these with you. Keep trying Most smokers try to quit many times before they succeed. It?s important not to give up. Last Reviewed Date: 2024 00:00:00 ? [id number] [employer]. All rights reserved. This information is not intended as a substitute for professional medical care. Always follow your healthcare professional's instructions. onald [facility] [id number] 08:52:49 Images from the original note were not included. [id number] Discharge Instructions for Acute Kidney Injury You have been diagnosed with acute kidney injury. This means that you have had a sudden episode of kidney failure or damage that causes your kidneys not to work correctly. When both kidneys are healthy, they help filter out fluid and waste from the blood and body. Acute kidney injury has many causes. These include urinary blockages, infection, lack of enough blood supply, and medicines that can injure kidneys. In some cases, acute kidney injury is short-term (temporary). This type lasts several days to a few months. This is because the kidney can repair itself. Acute kidney injury can also result in chronic kidney disease or end stage renal failure. Here are some directions for you to follow as you recover. Home care ? Weigh yourself every day, at the same time of day, and in the same kind of clothes. Keep a daily record of your daily weights. ? Take your temperature every day. Keep a record of the results. ? Learn to take your own blood pressure (BP). Your healthcare provider can teach you how to correctly measure your BP. Keep a record of your results. Bring the record to your follow-up appointments. Ask your healthcare provider when you should seek emergency medical attention. Your provider will tell you what blood pressure reading is dangerous. ? Stay away from people who have infections. This includes people with colds, bronchitis, or skin conditions. ? Practice good personal hygiene. Wash your hands often. This is especially important if you have a catheter in place when you leave the hospital. Doing so helps keep you safe from infection. ? Take your medicines exactly as directed. ? You may need frequent blood and urine tests. These are done to keep track of your kidney function. Follow-up care Follow up with your healthcare provider, or as advised. When to call your healthcare provider Call your healthcare provider right away if any of the following occur: ? Signs of bladder infection, such as urinating more often, burning or pain when you pee, pain above your pubic bone, blood in your urine, or trouble starting your urine stream ? Rapid weight loss or weight gain, such as 3 pounds or more in 24 hours or 6 pounds or more in 7 days ? Fever above 100.4? F ( 38?C ) or as directed by your healthcare provider ? Chills ? Muscle aches ? Night sweats ? Very little or no urine output ? Swelling of your hands, legs, or feet ? Back pain ? Abdominal (belly) pain ? Extreme tiredness Last Reviewed Date: 2022 00:00:00 ? [id number] [employer]. All rights reserved. This information is not intended as a substitute for professional medical care. Always follow your healthcare professional's instructions.This information has been modified by your health care provider with permission from the publisher. [facility]2025-04-07 08:52:18 Images from the original note were not included. [id number] Discharge Instructions for Heart Failure The heart is a muscle that pumps oxygen-rich blood to all parts of the body. When you have heart failure, the heart is not able to pump as well as it should. Blood and fluid may back up into the lungs. Some parts of the body don?t get enough oxygen-rich blood to work normally. These problems lead to the symptoms of heart failure. Heart failure can occur because of an injury to the heart or from natural processes. You can control symptoms of heart failure with some lifestyle changes and by following your health care provider's advice. Activity Ask your health care provider about an exercise program. Simple activities, such as walking or gardening, can help. Exercising most days of the week can make you feel better. Don't be discouraged if your progress is slow at first. Rest as needed. Stop activity if you get symptoms, such as chest pain, lightheadedness, or shortness of breath. Find activities that you enjoy. Examples might be brisk walking, dancing, swimming, and gardening. These will help you stay active and strengthen your heart. Ask your provider about cardiac rehab. This is a program that helps you to exercise safely. Diet Follow a heart healthy diet. And make sure to limit the salt (sodium) in your diet. Salt causes your body to hold water. This makes your heart work harder because there is more fluid for the heart to pump. Limit your salt as directed by your provider by doing the following: ? Limit canned, dried, packaged, and fast foods. ? Don't add salt to your food. ? Season foods with herbs instead of salt. ? Watch how much liquids you drink. Drinking too much can make heart failure worse. Talk with your provider about how much you should drink each day. ? Limit the amount of alcohol you drink. It may harm your heart. Women should have no more than 1 drink a day. Men should have no more than 2 a day. ? Ask that your meals have no added salt when you eat out. ? Talk with your provider before using salt substitutes. They often have potassium in them. This may not be good for your health. This will depend on how well your kidneys are working and what medicines you?re taking. Some people need extra potassium. Others don?t. Tobacco It's important to quit if you smoke. Smoking increases your chances of having a heart attack by harming the blood vessels that provide oxygen to your heart. This makes heart failure worse. Quitting smoking is the number one thing you can do to improve your health. Enroll in a stop-smoking program to improve your chances of success. Talk with your health care provider about medicines or nicotine replacement therapy. Also ask your provider about smoking cessation support groups. Medicine Take your medicines exactly as prescribed. Learn the names and purpose of each of your medicines. Keep an accurate medicine list and current dosages with you at all times. Don't skip doses. If you miss a dose of your medicine, take it as soon as you remember. If you miss a dose and it's almost time for your next dose, just wait and take your next dose at the normal time. Don't take a double dose. If you are unsure, call your provider's office. Make sure not to mix up your medicines or forget what you've taken the same day. Refill your prescriptions before you run out of medicine. Talk with your health care provider if you have trouble with the cost of your medicines. Weight monitoring Weigh yourself every day. A sudden weight gain can mean your heart failure is getting worse. Weigh yourself at the same time of day and in the same kind of clothes. Ideally, weigh yourself first thing in the morning after you empty your bladder, but before you eat breakfast. Your provider will show you how to track your weight. Call your provider if you have a sudden, unexpected increase in your weight. Your provider may ask you to report if your weight goes up by more than 2 pounds in 1 day, 5 pounds in 1 week, on average. This is a sign that you are retaining more fluid than you should be. Clues to weight gain include checking your ankles for swelling, or noticing you are short of breath when you lie down. Follow-up care Have a follow-up appointment as instructed. Depending on the type and severity of heart failure you have, you may need follow up within 7 days from hospital discharge. Keep appointments for checkups and lab tests that are needed to check your medicines and condition. Recognize that your health and even survival depend on you following your provider's advice. Symptoms Heart failure can cause a variety of symptoms. They include: ? Shortness of breath. ? Trouble breathing at night, especially when you lie down. ? Swelling in the legs and feet or in the belly (abdomen). ? Becoming easily tired. ? Irregular or rapid heartbeat. ? Weakness or lightheadedness. ? Swelling of the neck veins. It's important to know what to do if symptoms get worse or if you develop signs of heart failure getting worse. Keep track of how you feel each day. Report any changes to your health care provider. When to call your doctor Contact your health care provider right away if: ? You have sudden weight gain. This means more than 2 pounds in 1 day or 5 pounds in 1 week. Or it could be whatever weight gain you were told to report by your provider. ? You have trouble breathing that's not related to being active. ? There's new or increased swelling of your legs or ankles. ? You have swelling or pain in your abdomen (belly). ? You have trouble breathing at night. This means waking up short of breath or needing more pillows to breathe. ? You have frequent coughing that doesn't go away. ? You're feeling much more tired than usual. Call 911 Call 911 right away if: ? You are severely short of breath, such that you can't catch your breath even while resting. ? You have severe chest pain that doesn't get better with rest or nitroglycerin. ? You have pink, foamy mucus with cough and shortness of breath. ? You have an ongoing rapid or irregular heartbeat. ? You are passing out or fainting. ? You have stroke symptoms, such as sudden numbness or weakness on one side of your face, arm, or leg or sudden confusion, trouble speaking or vision changes. Last Reviewed Date: 2024 00:00:00 ? [id number] [employer]. All rights reserved. This information is not intended as a substitute for professional medical care. Always follow your healthcare professional's instructions. [facility]2025-04-07 03:26:25 Problem: Pain - Adult Goal: Verbalizes/displays adequate comfort level or baseline comfort level Outcome: Progressing Problem: Safety - Adult Goal: Free from fall injury Outcome: Progressing Problem: Chronic Conditions and Co-morbidities Goal: Patient's chronic conditions and co-morbidity symptoms are monitored and maintained or improved Outcome: Progressing Problem: Hemodynamic Status Goal: Patient's vitals signs are stable Outcome: Progressing Problem: Inadequate Airway Clearance Goal: Patient will achieve/maintain normal respiratory rate/effort Outcome: Progressing Problem: Inadequate Gas Exchange Goal: Patient is adequately oxygenated and ventilation is improved Outcome: Progressing Problem: Potential for Aspiration Goal: Non-ventilated patient's risk of aspiration is minimized Outcome: Progressing Problem: Compromised Skin Integrity Goal: Skin Integrity is Maintained or Improved Outcome: Progressing Problem: Knowledge Deficit Goal: Patient/family/caregiver demonstrates understanding of disease process, treatment plan, medications, and discharge instructions Outcome: Progressing Problem: Potential for Falls Goal: I will remain free of falls Outcome: Progressing [place] [id number] 12:36:34 The patient is Moderately Stable - Low risk of patient condition declining or worsening The patient's goals for the shift include Get some rest The clinical goals for the shift include [place] [facility]2025-04-06 03:20:44 Problem: Pain - Adult Goal: Verbalizes/displays adequate comfort level or baseline comfort level Outcome: Progressing Problem: Safety - Adult Goal: Free from fall injury Outcome: Progressing Problem: Chronic Conditions and Co-morbidities Goal: Patient's chronic conditions and co-morbidity symptoms are monitored and maintained or improved Outcome: Progressing Problem: Hemodynamic Status Goal: Patient's vitals signs are stable Outcome: Progressing Problem: Inadequate Airway Clearance Goal: Patient will achieve/maintain normal respiratory rate/effort Outcome: Progressing Problem: Inadequate Gas Exchange Goal: Patient is adequately oxygenated and ventilation is improved Outcome: Progressing Problem: Potential for Aspiration Goal: Non-ventilated patient's risk of aspiration is minimized Outcome: Progressing Problem: Compromised Skin Integrity Goal: Skin Integrity is Maintained or Improved Outcome: Progressing Problem: Knowledge Deficit Goal: Patient/family/caregiver demonstrates understanding of disease process, treatment plan, medications, and discharge instructions Outcome: Progressing Problem: Potential for Falls Goal: I will remain free of falls Outcome: Progressing [facility]2025-04-05 18:21:41 The patient is Moderately Stable - Low risk of patient condition declining or worsening The patient's goals for the shift include go home The clinical goals for the shift include resolve itch [facility]2025-04-04 22:20:29 The patient's goals for the shift include go home The clinical goals for the shift include wean off vapo Problem: Pain - Adult Goal: Verbalizes/displays adequate comfort level or baseline comfort level Outcome: Progressing Problem: Safety - Adult Goal: Free from fall injury Outcome: Progressing Flowsheets (Taken 05/24/20241999) Free from fall injury: Instruct family/caregiver on patient safety Problem: Chronic Conditions and Co-morbidities Goal: Patient's chronic conditions and co-morbidity symptoms are monitored and maintained or improved Outcome: Progressing Problem: Hemodynamic Status Goal: Patient's vitals signs are stable Outcome: Progressing Problem: Inadequate Airway Clearance Goal: Patient will achieve/maintain normal respiratory rate/effort Outcome: Progressing Problem: Inadequate Gas Exchange Goal: Patient is adequately oxygenated and ventilation is improved Outcome: Progressing Problem: Potential for Aspiration Goal: Non-ventilated patient's risk of aspiration is minimized Outcome: Progressing Problem: Compromised Skin Integrity Goal: Skin Integrity is Maintained or Improved Outcome: Progressing Problem: Knowledge Deficit Goal: Patient/family/caregiver demonstrates understanding of disease process, treatment plan, medications, and discharge instructions Outcome: Progressing Problem: Potential for Falls Goal: I will remain free of falls Outcome: Progressing [id number] Report was given to VISH Lorenzo in [id number]. Pt. Was transferred by bed with [employer], and family at bedside. [id number] 13:11:59 Problem: Pain - Adult Goal: Verbalizes/displays adequate comfort level or baseline comfort level 05/24/2024 1310 by Pauly Tovar RN Outcome: Ongoing 05/24/2024 1035 by Pauly Tovar RN Outcome: Ongoing Problem: Safety - Adult Goal: Free from fall injury 05/24/2024 1310 by Pauly Tovar RN Outcome: Ongoing Flowsheets (Taken 05/24/2024 1200) Free from fall injury: Instruct family/caregiver on patient safety 05/24/2024 1035 by Pauly Tovar RN Outcome: Ongoing Problem: Chronic Conditions and Co-morbidities Goal: Patient's chronic conditions and co-morbidity symptoms are monitored and maintained or improved 05/24/2024 1310 by Pauly Tovar RN Outcome: Ongoing 05/24/20241034 by Pauly Tovar RN Outcome: Ongoing Problem: Hemodynamic Status Goal: Patient's vitals signs are stable 05/24/2024 1310 by Pauly Tovar RN Outcome: Ongoing 05/24/20241034 by Pauly Tovar RN Outcome: Ongoing Problem: Inadequate Airway Clearance Goal: Patient will achieve/maintain normal respiratory rate/effort 05/24/2024 1310 by Pauly Tovar RN Outcome: Ongoing 05/24/20241034 by Pauly Tovar RN Outcome: Ongoing Problem: Inadequate Gas Exchange Goal: Patient is adequately oxygenated and ventilation is improved 05/24/2024 1310 by Pauly Tovar RN Outcome: Ongoing 05/24/20241034 by Pauly Tovar RN Outcome: Ongoing Problem: Potential for Aspiration Goal: Non-ventilated patient's risk of aspiration is minimized 05/24/2024 1310 by Pauly Tovar RN Outcome: Ongoing 05/24/20241034 by Pauly Tovar RN Outcome: Ongoing Problem: Compromised Skin Integrity Goal: Skin Integrity is Maintained or Improved 05/24/2024 1310 by Pauly Tovar RN Outcome: Ongoing 05/24/20241034 by Pauly Tovar RN Outcome: Ongoing Problem: Knowledge Deficit Goal: Patient/family/caregiver demonstrates understanding of disease process, treatment plan, medications, and discharge instructions 05/24/2024 1310 by Pauly Tovar RN Outcome: Ongoing 05/24/20241034 by Pauly Tovar RN Outcome: Ongoing Problem: Potential for Falls Goal: I will remain free of falls 05/24/2024 1310 by Pauly Tovar RN Outcome: Ongoing 05/24/20241034 by Pauly Tovar RN Outcome: Ongoing The patient is Unstable - High likelihood or risk of patient condition declining or worsening The patient's goals for the shift include go home The clinical goals for the shift include wean off vapo Over the shift, the patient did not make progress toward the following goals. Barriers to progression include . Recommendations to address these barriers include . [facility]2025-04-04 10:35:26 Problem: Pain - Adult Goal: Verbalizes/displays adequate comfort level or baseline comfort level Outcome: Ongoing Problem: Safety - Adult Goal: Free from fall injury Outcome: Ongoing Problem: Chronic Conditions and Co-morbidities Goal: Patient's chronic conditions and co-morbidity symptoms are monitored and maintained or improved Outcome: Ongoing Problem: Hemodynamic Status Goal: Patient's vitals signs are stable Outcome: Ongoing Problem: Inadequate Airway Clearance Goal: Patient will achieve/maintain normal respiratory rate/effort Outcome: Ongoing Problem: Inadequate Gas Exchange Goal: Patient is adequately oxygenated and ventilation is improved Outcome: Ongoing Problem: Potential for Aspiration Goal: Non-ventilated patient's risk of aspiration is minimized Outcome: Ongoing Problem: Compromised Skin Integrity Goal: Skin Integrity is Maintained or Improved Outcome: Ongoing Problem: Knowledge Deficit Goal: Patient/family/caregiver demonstrates understanding of disease process, treatment plan, medications, and discharge instructions Outcome: Ongoing Problem: Potential for Falls Goal: I will remain free of falls Outcome: Ongoing The patient is Unstable - High likelihood or risk of patient condition declining or worsening The patient's goals for the shift include rest well The clinical goals for the shift include BiPAP, improve oxygen Over the shift, the patient did not make progress toward the following goals. Barriers to progression include . Recommendations to address these barriers include . [facility]2025-04-04 01:38:57 The patient is Moderately Unstable - Medium risk of patient condition declining or worsening The patient's goals for the shift include rest well The clinical goals for the shift include BiPAP, improve oxygen Problem: Pain - Adult Goal: Verbalizes/displays adequate comfort level or baseline comfort level Outcome: Progressing Problem: Safety - Adult Goal: Free from fall injury Outcome: Progressing Problem: Chronic Conditions and Co-morbidities Goal: Patient's chronic conditions and co-morbidity symptoms are monitored and maintained or improved Outcome: Progressing Problem: Hemodynamic Status Goal: Patient's vitals signs are stable Outcome: Progressing Problem: Inadequate Airway Clearance Goal: Patient will achieve/maintain normal respiratory rate/effort Outcome: Progressing Problem: Inadequate Gas Exchange Goal: Patient is adequately oxygenated and ventilation is improved Outcome: Progressing Problem: Potential for Aspiration Goal: Non-ventilated patient's risk of aspiration is minimized Outcome: Progressing Problem: Compromised Skin Integrity Goal: Skin Integrity is Maintained or Improved Outcome: Progressing Problem: Knowledge Deficit Goal: Patient/family/caregiver demonstrates understanding of disease process, treatment plan, medications, and discharge instructions Outcome: Progressing Problem: Potential for Falls Goal: I will remain free of falls Outcome: Progressing [facility]2025-04-03 17:02:31 Problem: Pain - Adult Goal: Verbalizes/displays adequate comfort level or baseline comfort level Outcome: Progressing Problem: Safety - Adult Goal: Free from fall injury Outcome: Progressing Problem: Inadequate Airway Clearance Goal: Patient will achieve/maintain normal respiratory rate/effort Outcome: Progressing Problem: Compromised Skin Integrity Goal: Skin Integrity is Maintained or Improved Outcome: Progressing The patient is Moderately Unstable - Medium risk of patient condition declining or worsening The patient's goals for the shift include Get mitts off The clinical goals for the shift include Remain off BiPap while awake Patient continues to progress towards goals. [facility] [id number] 20:16:23 The patient is Moderately Stable - Low risk of patient condition declining or worsening The patient's goals for the shift include Maintain rest and comfort The clinical goals for the shift include Wean oxygen, improve mentation, and maintain hemodynamic stability Problem: Pain - Adult Goal: Verbalizes/displays adequate comfort level or baseline comfort level Outcome: Ongoing Flowsheets (Taken 05/22/20241999) Verbalizes/displays adequate comfort level or baseline comfort level: Encourage patient to monitor pain and request assistance Problem: Safety - Adult Goal: Free from fall injury Outcome: Ongoing Problem: Chronic Conditions and Co-morbidities Goal: Patient's chronic conditions and co-morbidity symptoms are monitored and maintained or improved Outcome: Ongoing Problem: Hemodynamic Status Goal: Patient's vitals signs are stable Outcome: Ongoing Problem: Inadequate Airway Clearance Goal: Patient will achieve/maintain normal respiratory rate/effort Outcome: Ongoing Problem: Inadequate Gas Exchange Goal: Patient is adequately oxygenated and ventilation is improved Outcome: Ongoing Problem: Potential for Aspiration Goal: Non-ventilated patient's risk of aspiration is minimized Outcome: Ongoing Problem: Compromised Skin Integrity Goal: Skin Integrity is Maintained or Improved Outcome: Ongoing Problem: Knowledge Deficit Goal: Patient/family/caregiver demonstrates understanding of disease process, treatment plan, medications, and discharge instructions Outcome: Ongoing Problem: Potential for Falls Goal: I will remain free of falls Outcome: Ongoing [facility] [id number] 16:50:44 The patient is The patient's goals for the shift include Maintain rest and comfort The clinical goals for the shift include Wean oxygen and maintain hemodynamic stability Over the shift, the patient did not make progress toward the following goals. Barriers to progression include . Recommendations to address these barriers include . [facility] [id number] 21:07:55 The patient is Moderately Stable - Low risk of patient condition declining or worsening The patient's goals for the shift include Maintain rest and comfort The clinical goals for the shift include Wean oxygen and maintain hemodynamic stability Problem: Pain - Adult Goal: Verbalizes/displays adequate comfort level or baseline comfort level Outcome: Ongoing Flowsheets (Taken 05/21/20241999) Verbalizes/displays adequate comfort level or baseline comfort level: Encourage patient to monitor pain and request assistance Problem: Safety - Adult Goal: Free from fall injury Outcome: Ongoing Problem: Chronic Conditions and Co-morbidities Goal: Patient's chronic conditions and co-morbidity symptoms are monitored and maintained or improved Outcome: Ongoing Problem: Hemodynamic Status Goal: Patient's vitals signs are stable Outcome: Ongoing Problem: Inadequate Airway Clearance Goal: Patient will achieve/maintain normal respiratory rate/effort Outcome: Ongoing Problem: Inadequate Gas Exchange Goal: Patient is adequately oxygenated and ventilation is improved Outcome: Ongoing Problem: Potential for Aspiration Goal: Non-ventilated patient's risk of aspiration is minimized Outcome: Ongoing Problem: Compromised Skin Integrity Goal: Skin Integrity is Maintained or Improved Outcome: Ongoing Problem: Knowledge Deficit Goal: Patient/family/caregiver demonstrates understanding of disease process, treatment plan, medications, and discharge instructions Outcome: Ongoing Problem: Potential for Falls Goal: I will remain free of falls Outcome: Ongoing [facility]2025-04-01 15:39:50 The patient is The patient's goals for the shift include rest well The clinical goals for the shift include wean oxygen Over the shift, the patient did not make progress toward the following goals. Barriers to progression include . Recommendations to address these barriers include . [facility]2025-04-01 02:52:10 The patient is Moderately Unstable - Medium risk of patient condition declining or worsening The patient's goals for the shift include rest well The clinical goals for the shift include wean oxygen Problem: Pain - Adult Goal: Verbalizes/displays adequate comfort level or baseline comfort level 05/21/2024251 by Ernst Boles RN Outcome: Ongoing 05/21/2024251 by Ernst Boles RN Outcome: Ongoing Problem: Safety - Adult Goal: Free from fall injury 05/21/2024251 by Ernst Boles RN Outcome: Ongoing 05/21/2024251 by Ernst Boles RN Outcome: Ongoing Problem: Chronic Conditions and Co-morbidities Goal: Patient's chronic conditions and co-morbidity symptoms are monitored and maintained or improved 05/21/2024251 by Ernst Boles RN Outcome: Ongoing 05/21/2024251 by Ernst Boles RN Outcome: Ongoing Problem: Hemodynamic Status Goal: Patient's vitals signs are stable 05/21/2024251 by Ernst Boles RN Outcome: Ongoing 05/21/2024251 by Ernst Boles RN Outcome: Ongoing Problem: Inadequate Airway Clearance Goal: Patient will achieve/maintain normal respiratory rate/effort 05/21/2024251 by Ernst Boles RN Outcome: Ongoing 05/21/2024251 by Ernst Boles RN Outcome: Ongoing Problem: Inadequate Gas Exchange Goal: Patient is adequately oxygenated and ventilation is improved 05/21/2024251 by Ernst Boles RN Outcome: Ongoing 05/21/2024251 by Ernst Boles RN Outcome: Ongoing Problem: Potential for Aspiration Goal: Non-ventilated patient's risk of aspiration is minimized 05/21/2024251 by Ernst Boles RN Outcome: Ongoing 05/21/2024251 by Ernst Boles RN Outcome: Ongoing Problem: Compromised Skin Integrity Goal: Skin Integrity is Maintained or Improved 05/21/2024251 by Ernst Boles RN Outcome: Ongoing 05/21/2024251 by Ernst Boles RN Outcome: Ongoing Problem: Knowledge Deficit Goal: Patient/family/caregiver demonstrates understanding of disease process, treatment plan, medications, and discharge instructions 05/21/2024251 by Ernst Boles RN Outcome: Ongoing 05/21/2024251 by Ernst Boles RN Outcome: Ongoing Problem: Potential for Falls Goal: I will remain free of falls 05/21/2024251 by Ernst Boles RN Outcome: Ongoing 05/21/2024251 by Ernst Boles RN Outcome: [facility]ing [id number] 16:13:47 The patient is Moderately Stable - Low risk of patient condition declining or worsening The patient's goals for the shift include rest well The clinical goals for the shift include improve oxygenation Over the shift, the patient did not make progress toward the following goals. Barriers to progression include . Recommendations to address these barriers include . [facility] [id number] 22:56:10 The patient is Moderately Unstable - Medium risk of patient condition declining or worsening The patient's goals for the shift include rest well The clinical goals for the shift include improve oxygenation Problem: Pain - Adult Goal: Verbalizes/displays adequate comfort level or baseline comfort level Outcome: Ongoing Problem: Safety - Adult Goal: Free from fall injury Outcome: Ongoing Problem: Chronic Conditions and Co-morbidities Goal: Patient's chronic conditions and co-morbidity symptoms are monitored and maintained or improved Outcome: Ongoing Problem: Hemodynamic Status Goal: Patient's vitals signs are stable Outcome: Ongoing Problem: Inadequate Airway Clearance Goal: Patient will achieve/maintain normal respiratory rate/effort Outcome: Ongoing Problem: Inadequate Gas Exchange Goal: Patient is adequately oxygenated and ventilation is improved Outcome: Ongoing Problem: Potential for Aspiration Goal: Non-ventilated patient's risk of aspiration is minimized Outcome: Ongoing Problem: Compromised Skin Integrity Goal: Skin Integrity is Maintained or Improved Outcome: Ongoing Problem: Knowledge Deficit Goal: Patient/family/caregiver demonstrates understanding of disease process, treatment plan, medications, and discharge instructions Outcome: Ongoing Problem: Potential for Falls Goal: I will remain free of falls Outcome: [id number] The patient is Moderately Unstable - Medium risk of patient condition declining or worsening The patient's goals for the shift include feel better The clinical goals for the shift include wean off oxygen Problem: Chronic Conditions and Co-morbidities Goal: Patient's chronic conditions and co-morbidity symptoms are monitored and maintained or improved Outcome: Not Progressing Problem: Pain - Adult Goal: Verbalizes/displays adequate comfort level or baseline comfort level Outcome: Progressing Problem: Safety - Adult Goal: Free from fall injury Outcome: Progressing Problem: Inadequate Airway Clearance Goal: Patient will achieve/maintain normal respiratory rate/effort Outcome: Ongoing Problem: Inadequate Gas Exchange Goal: Patient is adequately oxygenated and ventilation is improved Outcome: Ongoing Problem: Potential for Aspiration Goal: Non-ventilated patient's risk of aspiration is minimized Outcome: Progressing [facility]2025-03-30 04:33:01 The patient is Moderately Stable - Low risk of patient condition declining or worsening The patient's goals for the shift include comfort The clinical goals for the shift include Improve oxygenation, CO2 Problem: Pain - Adult Goal: Verbalizes/displays adequate comfort level or baseline comfort level Outcome: Ongoing Problem: Safety - Adult Goal: Free from fall injury Outcome: Ongoing Problem: Chronic Conditions and Co-morbidities Goal: Patient's chronic conditions and co-morbidity symptoms are monitored and maintained or improved Outcome: Ongoing Flowsheets (Taken 05/18/20241999) Care Plan - Patient's Chronic Conditions and Co-Morbidity Symptoms are Monitored and Maintained or Improved: Monitor and assess patient's chronic conditions and comorbid symptoms for stability, deterioration, or improvement Problem: Hemodynamic Status Goal: Patient's vitals signs are stable Outcome: Ongoing Problem: Inadequate Airway Clearance Goal: Patient will achieve/maintain normal respiratory rate/effort Outcome: Ongoing Problem: Inadequate Gas Exchange Goal: Patient is adequately oxygenated and ventilation is improved Outcome: Ongoing Problem: Potential for Aspiration Goal: Non-ventilated patient's risk of aspiration is minimized Outcome: Ongoing Problem: Compromised Skin Integrity Goal: Skin Integrity is Maintained or Improved Outcome: Ongoing [facility]2025-03-29 15:57:29 The patient is The patient's goals for the shift include breathe better The clinical goals for the shift include wean off Bipap Over the shift, the patient did not make progress toward the following goals. Barriers to progression include . Recommendations to address these barriers include . [facility]2025-03-28 22:53:12 The patient is Moderately Unstable - Medium risk of patient condition declining or worsening The patient's goals for the shift include breathe better The clinical goals for the shift include wean off Bipap Over the shift, the patient did not make progress toward the following goals. Barriers to progression include agitation. Recommendations to address these barriers include wean off sedation. Problem: Inadequate Airway Clearance Goal: Patient will achieve/maintain normal respiratory rate/effort Outcome: Not Progressing Problem: Inadequate Gas Exchange Goal: Patient is adequately oxygenated and ventilation is improved Outcome: Not Progressing Problem: Potential for Aspiration Goal: Non-ventilated patient's risk of aspiration is minimized Outcome: Not Progressing [facility]2025-03-28 04:05:36 The patient is Moderately Unstable - Medium risk of patient condition declining or worsening The patient's goals for the shift include breathe better The clinical goals for the shift include wean off Bipap Over the shift, the patient did not make progress toward the following goals. Barriers to progression include altered mental status. Recommendations to address these barriers include continue plan of care. [facility] Alejandra [id number] 14:48:00 Associated Order(s): Critical Care; ECG 12 lead Chief Complaint: Patient presents with Altered Mental Status Shortness of Breath Chest Pain Abdominal Pain AMS x 2 weeks, SOB getting worse x 3 days, distended abdomen x 3 weeks HPI History of Present Illness: 68-year-old male history of HFrEF, EtOH abuse, A-fib on Coumadin, water retention and states Dr. Frausto to me at [facility], low oxygen at home, does not use oxygen at home, on Lasix 60 twice daily, recently admitted for delirium tremens from alcohol withdrawal, been sober since, presents with daughter for 2 to 3 days of altered mental status visual and auditory hallucinating, and also decreased urine output exertional shortness of breath. Denies nausea vomiting. Patient History No past medical history on file. No past surgical history on file. No family history on file. Social History: Tobacco Use Smoking status: Never Smokeless tobacco: Not on file Vaping Use Vaping status: Never Used Substance Use Topics Alcohol use: Not on file Drug use: Never Review of Systems: Review of Systems Constitutional: Negative for chills and fever. HENT: Negative for ear pain and sore throat. Eyes: Negative for pain and visual disturbance. Respiratory: Positive for shortness of breath. Negative for cough. Cardiovascular: Positive for leg swelling. Negative for chest pain and palpitations. Gastrointestinal: Negative for abdominal pain and vomiting. Genitourinary: Positive for decreased urine volume. Negative for dysuria and hematuria. Musculoskeletal: Negative for arthralgias and back pain. Skin: Negative for color change and rash. Neurological: Negative for seizures and syncope. Psychiatric/Behavioral: Positive for confusion and hallucinations. All other systems reviewed and are negative. Physical Exam: Vitals and nursing note reviewed. Constitutional: Appearance: He is well-developed. HENT: Head: Normocephalic and atraumatic. Eyes: Conjunctiva/sclera: Conjunctivae normal. Cardiovascular: Rate and Rhythm: Normal rate and regular rhythm. Heart sounds: No murmur heard. Pulmonary: Effort: Tachypnea, accessory muscle usage and respiratory distress present. Breath sounds: Examination of the right-middle field reveals rales. Examination of the left-middle field reveals rales. Examination of the right-lower field reveals rales. Examination of the left-lower field reveals rales. Rales present. No wheezing. Abdominal: Palpations: Abdomen is soft. Tenderness: There is no abdominal tenderness. Musculoskeletal: General: No swelling. Cervical back: Neck supple. Right lower leg: Tenderness present. Edema present. Left lower leg: Tenderness present. Edema present. Skin: General: Skin is warm and dry. Capillary Refill: Capillary refill takes less than 2 seconds. Neurological: Mental Status: He is alert and oriented to person, place, and time. Psychiatric: Mood and Affect: Mood normal. Triage Vitals: BP: 98/71, Heart Rate: 64, Temp: 37 ?C (98.6 ?F), Resp: 18, SpO2: (!) 84 % (Patient placed on O2 and placed in room 15), Height: 180.3 cm (5' 11"), Weight: (!) 152 kg (334 lb) Orders Placed This Encounter Procedures Critical Care Blood culture, peripheral #1 Blood culture, peripheral #2 XR chest 1 view US abdomen limited US lower extremity venous doppler bilateral CT BRAIN WO IV CONTRAST CT angiogram chest pulmonary embolism XR chest 1 view Complete Blood Count w/Diff and Platelet Basic Metabolic Panel Hepatic Function Panel Troponin I High Sensitivity (Single Order) B-type natriuretic peptide Complete Blood Count Automated Differential Blood gas, venous D-dimer, quantitative UA with culture if indicated Blood gas, venous Blood gas, venous Basic Metabolic Panel Complete Blood Count w/Diff and Platelet Magnesium Level Phosphorus Level Blood Gas, Arterial PT and PTT Vital Signs Cardiac monitoring Continuous Pulse Oximetry Inpatient consult to Hospitalist Non-Invasive Ventilator - ECG 12 lead Insert peripheral IV Saline lock IV Admit to inpatient ED to floor bed request Labs: Labs are independently reviewed and interpreted by me. Labs Reviewed BASIC METABOLIC PANEL - Abnormal Result Value Glucose Lvl 96 BUN 37 (*) Creatinine Lvl 1.89 (*) Sodium Lvl 137 Potassium Lvl 5.0 (*) Chloride Lvl 98 CO2 Lvl 33.9 (*) Anion Gap 10.1 Calcium Lvl 8.2 (*) eGFR 38 (*) HEPATIC FUNCTION PANEL - Abnormal Protein 8.4 (*) Albumin Lvl 3.2 (*) Bilirubin Total 1.60 (*) Bilirubin Direct 0.7 (*) Bilirubin Indirect 0.9 Alkaline Phosphatase 114 AST 19 ALT 11 Globulin, Calc 5.2 (*) Albumin/Globulin Ratio 0.62 (*) B-TYPE NATRIURETIC PEPTIDE - Abnormal Natriuretic Peptide B 268 (*) COMPLETE BLOOD COUNT - Abnormal WBC 7.88 RBC 4.14 (*) NRBC % 0.0 Hgb 13.0 Hct 42.8 MCV 103.4 (*) MCH 31.4 MCHC 30.4 (*) RDW - SD 56.4 (*) Plt Count 162 MPV 10.2 BLOOD GAS, VENOUS - Abnormal Temp Guru 37.0 pH Guru 7.23 (*) PCO2 Guru 95 (*) PO2 Guru 31 HCO3 Guru 39.8 (*) BE Guru 8 (*) O2 Sat Guru 46.6 UA WITH CULTURE IF INDICATED - Abnormal UA Color Magnolia (*) UA Turbidity Clear UA Spec Grav 1.020 UA pH 5.0 UA Protein Negative UA Glucose Negative UA Ketones Negative UA Bilirubin Negative UA Blood Negative UA Urobilinogen 4.0 (*) UA Nitrite Negative UA Leuk Esterase Negative UA Ascorbic Acid Negative UA Sq Epi Occasional UA WBC 1 UA Bacteria Occasional UA Mucus Few UA Hyaline Casts 17 (*) BLOOD GAS, VENOUS - Abnormal Temp Guru 37.0 pH Guru 7.21 (*) PCO2 Guru 94 (*) PO2 Guru 63 (*) HCO3 Guru 37.6 (*) BE Guru 6 (*) O2 Sat Guru 86.4 (*) BLOOD GAS, VENOUS - Abnormal Temp Guru 37.0 pH Guru 7.19 (*) PCO2 Guru 99 (*) PO2 Guru 44 HCO3 Guru 37.8 (*) BE Guru 6 (*) O2 Sat Guru 67.3 TROPONIN I HIGH SENSITIVITY (SINGLE ORDER) - Normal HS Troponin I <3 AUTOMATED DIFFERENTIAL - Normal Segs % 66.8 Lymphs % 16.8 Monos % 12.1 Eos % 3.4 Basos % 0.5 Immature Grans % 0.4 Segs # 5.27 Lymphs # 1.32 Monos # 0.95 Eos # 0.27 Basos # 0.04 Imm Grans # 0.03 BLOOD CULTURE BLOOD CULTURE COMPLETE BLOOD COUNT W/DIFF AND PLATELET Narrative: The following orders were created for panel order Complete Blood Count w/Diff and Platelet. Procedure Abnormality Status --------- ------ Complete Blood Count[[id number]] Abnormal Final result Automated Differential[[id number]] Normal Final result Please view results for these tests on the individual orders. D-DIMER, QUANTITATIVE D-Dimer 1.72 PT AND PTT Radiology: Images are independently reviewed and interpreted by me CT angiogram chest pulmonary embolism Final Result 1. Suboptimal opacification of the pulmonary arterial system. No abnormal filling defects seen out through the proximal segmental level to suggest the presence of pulmonary emboli. Electronically signed by: Brock Michelle MD 05/17/2024 12:[address] BRAIN WO IV CONTRAST Final Result No CT evidence of acute intracranial abnormalities. [id number] Electronically signed by: Markus Adan MD 05/16/2024 10:42 PM CDT RP US lower extremity venous doppler bilateral Final Result No deep venous thrombosis (DVT) is identified within the visible BILATERAL lower extremity veins. Electronically signed by: Stephanie Summers MD 05/16/2024 09:10 PM CDT RP US abdomen limited Final Result 1. Liver is enlarged. No cholelithiasis appreciated. Gallbladder wall thickening is noted. Electronically signed by: Brock Michelle MD 05/16/2024 09:25 PM CDT RP XR chest 1 view Final Result No acute cardiopulmonary disease. Electronically signed by: Geoffrey Troncoso MD 05/16/2024 05:50 PM CDT RP Medications administered: Medications sodium chloride (NS) 0.9 % flush 10 mL (has no administration in time range) furosemide (Lasix) injection 40 mg (has no administration in time range) ipratropium-albuterol (Duo-Neb) 0.5-2.5 mg/3 mL nebulizer solution 3 mL (3 mL Nebulization Given 05/16/24 193) furosemide (Lasix) injection 60 mg (60 mg Intravenous Given 05/17/24 0000) iohexol (OMNIPaque) 350 MG/ML injection 75 mL (75 mL Intravenous Given 05/17/24 0012) SCORING TOOLS Scoring Tools Nabil Coma Scale Score: 14 PROCEDURES Procedures Performed: Critical Care Performed by: Josias Roth MD Authorized by: Hi Hill MD Critical care provider statement: Critical care time (minutes): 45 Critical care time was exclusive of: Separately billable procedures and treating other patients Critical care was necessary to treat or prevent imminent or life-threatening deterioration of the following conditions: Respiratory failure and PUTTIER failure or compromise Critical care was time spent personally by me on the following activities: Development of treatment plan with patient or surrogate, discussions with consultants, discussions with primary provider, examination of patient, evaluation of patient's response to treatment, obtaining history from patient or surrogate, ordering and review of laboratory studies, ordering and review of radiographic studies, ordering and performing treatments and interventions, pulse oximetry, re-evaluation of patient's condition and review of old charts I assumed direction of critical care for this patient from another provider in my specialty: no Care discussed with: admitting provider ECG 12 lead Performed by: Josias Roth MD Authorized by: Carly Almonte NP ECG interpreted by ED Physician in the absence of a photography coordinator: yes Previous ECG: Previous ECG: Compared to current Similarity: No change Interpretation: Interpretation: abnormal Quality: Tracing quality: Limited by artifact Rate: ECG rate: 75 ECG rate assessment: normal Rhythm: Rhythm: atrial fibrillation Ectopy: Ectopy: none ST segments: ST segments: Non-specific T waves: T waves: non-specific Comments: A-fib, no RVR, no ischemic changes ED Course: as of 05/17/24 0255 [facility] May 16, 20241911 Resp: 18 [IA] 2030 Natriuretic Peptide B(!): 268 [HH] 2031 XR chest 1 view IMPRESSION: No acute cardiopulmonary disease. [HH] 2032 68-year-old male history of A-fib on Coumadin, water retention and states Dr. Frausto to me at [facility] cardiology, low oxygen at home, does not use oxygen at home, on Lasix 60 twice daily, recently admitted for delirium tremens from alcohol withdrawal, been sober since, presents with daughter for 2 to 3 days of altered mental status visual and auditory hallucinating, and also decreased urine output exertional shortness of breath. Denies nausea vomiting. Patient is ANO x 3 in the room, desatted to 84% on 2 L nasal cannula so bumped to 4 L nasal cannula sats at 95%. Abdomen soft no significant tenderness bilateral lower extremity warm tender to touch, 2+ pitting edema [HH] 2143 Blood gas, venous(!) Resp acidosis; no wheezing [HH] 221 UA with culture if indicated(!) No UTI [HH] 221 US abdomen limited IMPRESSION: 1. Liver is enlarged. No cholelithiasis appreciated. Gallbladder wall thickening is noted. [HH] 230 D-Dimer: 1.72 Will obtain CTA. [HH] 2310 CT BRAIN WO IV CONTRAST IMPRESSION: No CT evidence of acute intracranial abnormalities. [] MonMay 17, 2024 0040 Blood gas, venous(!) Similar findings CO2 rentention. On reassessment pt mental status stable, Aox3, tolerating biPAP. Safe for IMU admission [HH] [address] Roy, admitted to IMU. Will also rpt VBG again in ER. [HH] 0054 CT angiogram chest pulmonary embolism IMPRESSION: 1. Suboptimal opacification of the pulmonary arterial system. No abnormal filling defects seen out through the proximal segmental level to suggest the presence of pulmonary emboli. [HH] [address] Roy assessed pt concerned about hypercapnia encephalopathy recommend ICU admission. Pt is admitted to ICU with Dr. Sher Murray [HH] 0206 Blood gas, venous(!!) Mildly worsening hypercapnic respiratory acidosis, increased BiPAP setting, IPAP to 15 [HH] ED Course: User Index [HH] Josias Roth MD [IA] Carly Almonte NP Diagnoses as of 05/17/24 0255 Altered mental status, unspecified altered mental status type DILLON (acute kidney injury) (HCC) Respiratory distress Consult Orders: Order Details: Tracking Details: Hospitalist Date/Time Event User Comments 05/16/242143 Hospitalist Consult Ordered JOSIAS ROTH Inpatient consult to Hospitalist - [[id number]] 05/16/242143 Hospitalist Called JOSIAS ROTH Inpatient consult to Hospitalist - [[id number]] Vital Signs: Vitals: 05/16/24 2245 05/16/24 2330 05/17/24 0030 05/17/24 0115 BP: (!) 120/58 111/62 118/65 100/80 Pulse: 75 68 78 71 Resp: 15 18 19 19 Temp: 36.9 ?C (98.5 ?F) SpO2: 96% 96% 96% 95% Last Recorded Vitals: BP: 100/80, Heart Rate: 71, Temp: 36.9 ?C (98.5 ?F), Resp: 19, SpO2: 95 %, Height: 180.3 cm (5' 11"), Weight: (!) 152 kg (334 lb) ED medical management: As discussed or documented ED course section and/or medical decision making section. Parenteral controlled medication management in ED: As discussed or documented in Medication administration section, ED course section and/or medical decision making.. Surgery/reduction/procedures: As discussed or documented in Medication administration section, ED course section and/or medical decision making.. Drug therapy requiring monitoring: As discussed with documented in ED course section and or medical decision making section. Current prescription drug management: I performed a review of patient's home medication that was available to me at the time of this ED encounter and patient as well: Differntial Diagnosis As discussed, but not limited to, in medical decision making section. Medical Decision Making 68-year-old male history of HFrEF, EtOH abuse, A-fib on Coumadin, water retention and states Dr. Frausto to me at [facility] cardiology, low oxygen at home, does not use oxygen at home, on Lasix 60 twice daily, recently admitted for delirium tremens from alcohol withdrawal, been sober since, presents with daughter for 2 to 3 days of altered mental status visual and auditory hallucinating, and also decreased urine output exertional shortness of breath. Denies nausea vomiting. Physical exam: patient is ANO x 3 in the room, desatted to 84% on 2 L nasal cannula so bumped to 4 L nasal cannula sats at 95%. Lung sounds positive for bilateral rales. Abdomen soft no significant tenderness bilateral lower extremity warm tender to touch, 2+ pitting edema Ddx: CHF exacerbation, fluid overload, DVT, hypercapnia encephalopathy, respiratory distress, intracranial bleeding; also consider PE ACS Plan: childcare provider, start BiPAP, labs EKG ultrasound with Doppler bilateral lower extremities CT brain without contrast, dimer, chest x-ray, reassess Labs shows elevated D-dimer, hypercapnia respiratory acidosis, no UTI, BNP 268, DILLON with creatinine 1.8 and potassium 5.0 elevated total bilirubin and direct bilirubin troponin less than 3 EKG shows A-fib which is similar to prior EKGs CTA shows no PE, CT brain shows no intracranial bleeding, right upper quadrant ultrasound shows no sign of cholangitis, patient also getting IV Lasix for fluid overload, initial plan was to admit patient to IMU however repeat VBG shows mildly worsening CO2 to retention, patient still tolerating BiPAP however kept falling asleep concerning for hypercapnic encephalopathy discussed with patient daughter, admit patient to ICU for close monitoring, does not appear to need intubation at this time, but it is a possibility if patient clinically continues to deteriorate. Patient admitted to ICU. On BiPAP. See critical care billing for MDM LOS Details Complexity of Problems Addressed (HIGH) I am concerned about a Severe complexity problem which was evidenced by the differential, and associated workup to rule out the severe problem: Respiratory failure which is a (Exacerbation of a chronic problem for this patient as evidenced by history of CHF, CHF exacerbation fluid overload, presents with hallucinations, respiratory distress needing BiPAP. Complexity of Data Review (# Of Data Points) Ordered the following tests: CBC BMP VBG BMP (Alternate Historian) For improved patient care, I received an additional history from family/hardener helper who states previous admission, found to have CO2 retention, was on BiPAP. (Image/Tracing interpretation) I contemporaneously during the patient encounter interpreted the following: radiographic image: CT: Brain without contrast CT of the patient and these are my findings: No intracranial bleeding Risk of Management (Admission) Patient to be admitted to the hospital This note was dictated with the use of Invisible speech recognition software, please use best judgement when interpreting and excuse any bi developer errors. Josias Roth MD PhD Provider ID [id number] Class of 2024 [facility] Amount and/or Complexity of Data Reviewed Labs: ordered. Decision-making details documented in ED Course. Radiology: ordered. Decision-making details documented in ED Course. ECG/medicine tests: independent interpretation performed. Risk Prescription drug management. DIAGNOSIS 1. Altered mental status, unspecified altered mental status type 2. DILLON (acute kidney injury) (HCC) 3. Respiratory distress ED Disposition: Admit/Observation ED Prescriptions None No follow-up provider specified. Josias Roth MD Resident 05/17/24 0255 Cosigned by Hi Hill MD at 05/17/2024 3:49 AM CDT Associated attestation - Hi Hill MD - 05/17/2024 3:49 AM CDT The patient was seen and examined by me in the presence of, or jointly with, the resident, and I agree with the History/Exam/Medical Decision Making documented. Additionally, I was directly involved in the management of the patient. Additionally I independently evaluated this patient at the bedside and performed an independent physical exam which shows morbidly obese male patient hypercapnic respiratory failure requiring BiPAP. Although his blood gas was effectively unchanged he had minimally decreased energy level although still arousable so admitted to ICU for additional management, workup. Hi Hill MD ED Physician [id number] [id number] 16:19:33 Chief Complaint Patient presents with Follow-up HOME HEALTH NURSE SAID TO FOLLOW UP; RETAINING FLUID; LOW OXYGEN; HAS SEEN CARDIO AND REDUCED LASIX Kacy Payne MA [facility]2025-01-16 13:50:56* * Auth/Cert (Routine) Specialty Diagnoses / Procedures Referred By Contac t Referred To Contact Diagnoses Acute on chronic systolic (congestive) heart failure (HCC) Acute hypoxic respiratory failure (HCC) Procedures SD [facility] IP/OBS CARE SF/LOW MDM 40 MINUTES Al Maloney MD [address] [facility] [address] [place] [address] Phone: tel: fax: [facility] (Cardiology - E7) [address] [place] [address] Phone: tel: Referral ID Status Reason Start Date Expiration Date Visits Re quested Visits Authorized [id number] 1 1 [id number] 13:50:56 [id number] 13:50:56* Audit-C Score Answer Date of Assessment Author 11 03/04/2024 9:25 PM BOTTOM POLISHER Bal, Huly a, AUTO RESEARCH ENGINEER * Intimate Partner Violence Question Answer Date of Assessment Author Within the last year, have y ou been humiliated or emotionally abused in other ways by your partner or ex-partner? No 03/04/2024 9:25 PM BOTTOM POLISHER B al, Nubia, AUTO RESEARCH ENGINEER Within the last year, have y ou been afraid of your partner or ex-partner? No 03/04/2024 9:25 PM BOTTOM POLISHER Bal, Nubia, AUTO RESEARCH ENGINEER Within the last year, have y ou been raped or forced to have any kind of sexual activity by your partner or ex-partner? No 03/04/2024 9:[address] Bal, Nubia, AUTO RESEARCH ENGINEER Within the last year, have y ou been kicked, hit, slapped, or otherwise physically hurt by your partner or ex-partner? No 03/04/2024 9:25 PM BOTTOM POLISHER Bal, Nubia, AUTO RESEARCH ENGINEER * * Calculated C-SSRS Risk Score (Lifetime/Recent) Answer Date of Assessment Author No Risk Indicated 03/04/2024 1:42 PM BOTTOM POLISHER Stacey Schwab RN * [place] Suicide Severity Rating Scale (Screener/Recent Self-Report) Question Answer Date of Assessment Author 1. Wish to be (Past 1 Month) No 03/04/2024 1:42 PM BOTTOM POLISHER Michael Schwab RN 2. Non-Specific Active Suicidal Thoughts (Past 1 Month) No 03/04/2024 1:42 PM BOTTOM POLISHER Michael Schwab, VISH 6. Suicidal Behavior (Lifetime) No 03/04/2024 1:42 PM BOTTOM POLISHER Michael Schwab, VISH [facility] [id number] 13:50:56* Sylvester Reed MD - 03/06/2024 12:11 PM BOTTOM POLISHER Images from the original note were not included. CARDIOLOGY PROGRESS NOTE 03/06/24 Name: Keyur Randall . : 1955 AGE: 68 y.o. Admit Date: 03/04/2024 SUBJECTIVE: 6L UOP yesterday, 10 lb weight loss in 2 days. Soft BP this am; metoprolol and losartan doses held. OBJECTIVE: Intake/Output Summary (Last 24 hours) at 03/06/2024 1211 Last data filed at 03/06/2024 0700 Gross per 24 hour Intake 47.33 ml Output 5070 ml Net -5022.67 ml Physical Exam: Visit Vitals BP (!) 106/51 Pulse 80 Temp 36.6 ?C (97.8 ?F) (Oral) Resp 19 Ht 1.803 m (5' 10.98") Wt 136 kg (299 lb 2.6 oz) SpO2 95% BMI 41.74 kg/m? Smoking Status Never BSA 2.61 m? GEN: Alert, awake, comfortable HEENT: Atraumatic, PERRL, EOMI, moist mucous membranes Heart: RRR, S1 S2 No Murmur Pulses: bilateral radial and DP 2+ Lungs: Breath sounds clear to auscultation, no use of accessory muscles, no crackles or wheezes GI: Soft + BS, abdomen not distended or tender EXT: no clubbing, cyanosis or edema SKIN: no rash or petechie Data: Results from last 7 days Lab Units 03/06/24 0411 03/05/24 0456 03/04/24 1511 WBC 10*3/uL 7.27 5.69 6.52 HEMOGLOBIN g/dL 14.3 14.1 13.8 HEMATOCRIT % 44.3 43.3 44.0 PLATELETS 10*3/uL 223 203 204 MAGNESIUM mg/dL -- 2.24 -- SODIUM mEq/L 135* 135* 135* POTASSIUM mEq/L 4.4 4.5 4.6* CHLORIDE mEq/L 90* 92* 93* CO2 mEq/L >40.0* 39.7* 39.3* BUN mg/dL 12 15 12 CREATININE mg/dL 0.82 0.84 0.73 EGFR mL/min/1.73m2 96 96 100 GLUCOSE mg/dL 104* 119* 93 CALCIUM mg/dL 8.5 8.6 8.1* PHOSPHORUS mg/dL -- 4.4 -- ALK PHOS U/L 105 111 -- BILIRUBIN TOTAL mg/dL 1.00 0.80 -- PROTEIN TOTAL g/dL 7.3 7.1 -- ALT U/L 21 24 -- AST U/L 20 23 -- Lab Results Component Value Date CK Total 119 02/14/2024 HS Troponin I 5 03/04/2024 Natriuretic Peptide B Date Value Ref Range Status 03/04/2024 248 (H) 0 - 100 pg/mL Final Comment: Elevated results are in line with increasing severity of congestive heart failure. Minor elevations between 100 and 300 may be seen with Myocardial Ischemia, Sodium retaining drugs, and compensated/treated heart failure. Medications: acetaZOLAMIDE (Diamox) 250 mg in sterile water 2.5 mL injection, 250 mg, Intravenous, Once amiodarone, 200 mg, Oral, Daily apixaban, 5 mg, Oral, BID digoxin, 125 mcg, Oral, Daily ipratropium, 0.5 mg, Nebulization, q6h losartan, 25 mg, Oral, Daily metoprolol succinate XL, 100 mg, Oral, Daily sodium chloride, 10 mL, Intravenous, q12h GREG tamsulosin, 0.4 mg, Oral, Daily Continuous Infusions: furosemide, 5 mg/hr, Last Rate: 5 mg/hr (03/06/24 0700) PRN Meds:PRN medications: acetaminophen, bisacodyl, calcium gluconate, calcium gluconate, dextromethorphan-guaiFENesin, dextrose, dextrose, glucagon, labetalol, magnesium oxide, magnesium sulfate, magnesium sulfate, magnesium sulfate, melatonin, morphine, ondansetron, polyethylene glycol (PEG) 3350, potassium & sodium phosphates, potassium chloride, potassium chloride, potassium chloride, Potassium chloride, potassium phosphate, potassium phosphate, sodium chloride, sodium phosphate, sodium phosphate, traMADol Images/Studies:Encounter Date: 03/04/24 XR chest 1 view Narrative EXAM: XR CHEST 1 VIEW DATE: 03/04/2024 5:14 PM BOTTOM POLISHER. INDICATION: sob sob . COMPARISON: Chest x-ray from February 20, 2024. TECHNIQUE: AP chest. FINDINGS: Lines, Tubes and Hardware: None. Lungs and Pleura: Diffuse interstitial airspace opacities and bronchial wall thickening. Probable small left pleural effusion. No pneumothorax. Heart and Mediastinum: The cardiomediastinal silhouette has not significantly changed. Pulmonary vascular congestion is present. Bones: No acute skeletal abnormality is identified. ImpressionPulmonary edema and small left pleural effusion. Electronically signed by: Lorena Woodall MD 03/04/2024 05:28 PM [facility] Cardiac Studies: Encounter Date: 03/04/24 ECG 12 lead (arrhythmia) Result Value Ventricular Rate 70 Atrial Rate 357 QRS Duration 94 QT/QTc 418 QTc Calculation 451 R-Garland 67 T-Garland 61 Impression ATRIAL FIBRILLATION ABNORMAL ECG Confirmed by Brooks Arizmendi ([id number]) on 03/05/2024 4:48:30 PM Transthoracic echo (TTE) complete 02/15/2024 Interpretation SummaryLeft Ventricle: Left ventricle size is normal. Findings consistent with mild concentric hypertrophy. Reduced systolic function with an estimated EF of 40 - 45%. Right Ventricle: Right ventricle is moderately dilated. Low normal systolic function in the right ventricle. Left Atrium: Left atrium is mildly dilated. Aortic Valve: Aortic valve is trileaflet. Moderately thickened leaflets in the aortic valve. Moderately calcified leaflets in the aortic valve. Moderate to severe aortic stenosis present. Mitral Valve: Mildly thickened leaflets in the mitral valve. Moderate mitral regurgitation present. Tricuspid Valve: Mild tricuspid regurgitation present. The estimated right ventricular systolic pressure, based on a presumed right atrial pressure of 10 mmHg, is 36 mmHg. Mild pulmonary hypertension present. No pericardial effusion present. ASSESSEMENT and PLAN: Patient Active Problem List Diagnosis Morbid obesity (HCC) BMI 40.0-44.9, adult (HCC) New onset atrial fibrillation (CMS/HCC) (HCC) Hypertension Other heart failure (HCC) Acute on chronic systolic (congestive) heart failure (HCC) Acute hypoxic respiratory failure (HCC) HPI: 68 y.o. male with a history of atrial fibrillation, heart failure, hypertension, moderate to severe aortic stenosis [facility] Armhole Raiser Lockstitch: Dr. Jacqueline Frausto HFrEF - newly dx in 01/2024Etiology unknown - possible alcoholic CMP EF 40-45% by TTE in 01/2026 - Diuresis: Lasix infusion 5 mg/mL - Diamox 500mg IV once - will hold BP meds as needed to continue diuresis, patient estimated he was 30 pounds up - CR is stable Moderate-severe aortic stenosisPer echo 02/15/24 Atrial fibrillationRate is currently controlled - Rate control: Toprol XL 100 mg daily - Rhythm control: Amiodarone 200 mg daily, Digoxin Hypercoagulable [id number] score - 4 - Anticoagulation: Eliquis 5 mg Q12 AlcoholismWent into withdrawals during hospitalization in 01/2024 Counseled on abstinence May need long half life benzos like valium while inpatient HypertensionBP soft this morning - on Toprol, losartan OM POLISHER * Al Maloney MD - 03/06/2024 10:17 AM BOTTOM POLISHER Images from the original note were not included. HOSPITALIST PROGRESS NOTE Name: Keyur Randall Sr. CSN: [id number] Admit Date: 03/04/2024 Code Status: Full Code LOS: 2 days HOSPITAL COURSE: Keyur Randall Sr. is a 68 y.o. male with history of recently dx HFrEF, atrial fibrillation, and EtOH abuse. Admitted on 03/04/2024 for acute hypoxemic respiratory failure, decompensated HF. ASSESSEMENT: Principal Problem: Acute on chronic systolic (congestive) heart failure (HCC) Active Problems: Acute hypoxic respiratory failure (HCC) PLAN: Acute on chronic systolic HF Acute hypoxemic respiratory failure Paroxysmal atrial fibrillation HTN - Cardiology following appreciate recs - cont diuresis, put on lasix drip at 5 mg/hr. Net -8.4L Strict I/O, sodium restriction - Wean oxygen as tolerated, see how he does on room air - Currently in rate controlled A-fib, keep on telemetry. Cont amiodarone 200 mg daily, digoxin 125 mcg - metop and losartan held this morning for hypotension -Continue Eliquis for A-fib hypercoagulability Morbid obesity, suspected OHS, NIHARIKA - will put on cpap while sleeping - outpatient sleep study BPH - cont flomax Disposition: Destination after discharge: Home Anticipated or estimated discharge date: >2 midnights VTE prophylaxis: eliquis Electronically signed by: Al Maloney MD, 03/06/2024 SUBJECTIVE: No acute issues voiced, getting poor sleep. Breathing comfortably CC: SOB OBJECTIVE: Intake/Output Summary (Last 24 hours) at 03/06/2024 1017 Last data filed at 03/06/2024 0700 Gross per 24 hour Intake 47.33 ml Output 6470 ml Net -6422.67 ml Physical Exam: Vitals: 03/06/24 0822 BP: Pulse: 75 Resp: Temp: SpO2: GEN: comfortable, alert HEENT: NCAT, extraocular movements intact NEURO: nonfocal, answers questions and follows commands CV: RRR, no murmur PULM: clear to ausculation, normal effort GI: soft +bs, not tender EXT: no clubbing or cyanosis, 2+ edema Hoang: none Central lines: none Data: Results from last 7 days Lab Units 03/06/24 0411 03/05/24 0456 03/04/24 1511 WBC 10*3/uL 7.27 5.69 6.52 HEMOGLOBIN g/dL 14.3 14.1 13.8 HEMATOCRIT % 44.3 43.3 44.0 PLATELETS 10*3/uL 223 203 204 MAGNESIUM mg/dL -- 2.24 -- SODIUM mEq/L 135* 135* 135* POTASSIUM mEq/L 4.4 4.5 4.6* CHLORIDE mEq/L 90* 92* 93* CO2 mEq/L >40.0* 39.7* 39.3* BUN mg/dL 12 15 12 CREATININE mg/dL 0.82 0.84 0.73 EGFR mL/min/1.73m2 96 96 100 GLUCOSE mg/dL 104* 119* 93 CALCIUM mg/dL 8.5 8.6 8.1* PHOSPHORUS mg/dL -- 4.4 -- ALK PHOS U/L 105 111 -- BILIRUBIN TOTAL mg/dL 1.00 0.80 -- PROTEIN TOTAL g/dL 7.3 7.1 -- ALT U/L 21 24 -- AST U/L 20 23 -- Medications:Scheduled Meds:amiodarone, 200 mg, Oral, Daily apixaban, 5 mg, Oral, BID digoxin, 125 mcg, Oral, Daily ipratropium, 0.5 mg, Nebulization, q6h losartan, 25 mg, Oral, Daily metoprolol succinate XL, 100 mg, Oral, Daily sodium chloride, 10 mL, Intravenous, q12h GREG tamsulosin, 0.4 mg, Oral, Daily Continuous Infusions:furosemide, 5 mg/hr, Last Rate: 5 mg/hr (03/06/24 0700) PRN Meds:.PRN medications: acetaminophen, bisacodyl, calcium gluconate, calcium gluconate, dextromethorphan-guaiFENesin, dextrose, dextrose, glucagon, labetalol, magnesium oxide, magnesium sulfate, magnesium sulfate, magnesium sulfate, melatonin, morphine, ondansetron, polyethylene glycol (PEG) 3350, potassium & sodium phosphates, potassium chloride, potassium chloride, potassium chloride, Potassium chloride, potassium phosphate, potassium phosphate, sodium chloride, sodium phosphate, sodium phosphate, traMADol Electronically signed by: Al Maloney MD, 03/06/2024 OM POLISHER * Dom Valdes PTA - 03/06/2024 9:23 AM BOTTOM POLISHER Treatment Session Note Patient Name: Keyur Randall Sr. Today's Date: 03/06/2024 Preferred Language: Ecuadorean Assessment & Plan Assessment: PT Assessment: Patient in room [address] 23. Patient limited to progress due to per patient feeling tired. Patient requesting PT to come two hours after breakfast. Plan: Continue to progress patient with out of bed activity. Subjective Nurse Medina cleared patient with PT session. Patient agreed to PT session. Current Problem:Per Eval dated on 03/05/2024: 68 y/o M admitted 03/04/24 d/t acute on chronic systolic heart failure. Pain:0/10 ObjectiveGeneral Visit Information: PT Last Visit PT Received On: 03/06/24 GeneralFamily/Caregiver Present: Yes (Patients daughter at bedside.) Activity Tolerance:Sitting Balance: (SBA while sitting on side of bed.) CognitionBehavior/Cognition: Alert TreatmentTherapeutic activity: Therapeutic Activity Therapeutic Activity Time Entry: 12 Therapeutic Activity 1: Patient was met supine in bed, patients daughter at bedside. Patient on O2 via nc at 3L per wall gauge. Patient perform bed mobility at SBA. Patient at SBA while sitting on side of bed. Patient stood at [facility] with rolling walker, patient had voiced 'I need to use the restroom." [employer]ESS[employer] guard patient at [facility] with gait belt while patient using urinal standing in restroom. Post gait, patient was transfered backto bed. Patients O2 at 3L was left intact, call light/phone in reach, bed alarm armed bed rail up for safety. Bed Mobility: Bed Mobility 1:Level of Assistance 1: (SBA.) Bed Mobility To/From: Supine to sit on EOB, Sitting EOB to supine Transfers: Transfers 1: Technique 1: Via walking, Stand pivot Level of Assistance 1: (CGA.) Trials/Comments 1: Patient required vc's to stay inside rolling walker and widen base of support. Transfer To/From: Pom-zz-Uukay/Takxd-bf-Eet Assistive Devices And Adaptive Equipments: Walker, front-wheeled Gait training: Gait Training Time Entry: 11 Gait Training Activity 1:Distance (enter in feet): 15 feet with a standing pause then 15 feet more. Gait Training Activity 1: Indoor surface Assistive Devices And Adaptive Equipments: Walker, front-wheeled Level of Assistance 1: (CGA.) Gait Training Activity 1 Comment: Patient with poratable O2 tank via nc at 3L. AM-PAC Basic Mobility: AM-PAC Basic Mobility Inpatient Turning in bed without bedrails: None Lying on back to sitting on edge of flat bed: None Bed to chair: A Little Standing up from chair: A Little Walk in room: A Little Climbing 3-5 stairs: A Lot Mobility Inpatient Raw Score: 19 JH-HLM Goal: 6 Mobility: Highest Level of Mobility Performed (JH-HLM)-HLM Goal: 6 Patient Education: Education Documentation Fall Prevention, taught by Dom Valdes PTA at 03/06/2024 4:43 PM. Learner: Patient Readiness: Acceptance Method: Explanation, Demonstration Response: Verbalizes Understanding, Demonstrated Understanding Comment: A[employer]UD[employer] PROFESSOR instructed patient on safety to press call light for Nurse staff assistance when patient requesting out of bed. Education CommentsNo comments found. Goals:Encounter Goals Encounter Goals (Active) Patient will ambulate using rolling walker mod indep x 300 ft at RA without increased SOB or fatigue and without seated rest breaks (Progressing) Start: 03/05/24 Expected End: 03/15/24 Patient will be mod indep with transfers with LRAD to without DME without increased SOB (Progressing) Start: 03/05/24 Expected End: 03/15/24 Supervising Physical Therapist: Jose Alfredo Kan PT Treatment Note: If this is the last documented treatment, then it will signify discharge from acute care prior to discharge from the therapy service and will serve as the discharge summary. Dom Valdes PTA OM POLISHER * Jose Aflredo Kan PT - 03/05/2024 3:54 PM BOTTOM POLISHER Evaluation and Treatment Note Patient Name: Keyur Randall Sr. Today's Date: 03/05/2024 Preferred Language: Ecuadorean Assessment & Plan: PT Assessment: 68 y/o M admitted 03/04/24 d/t acute on chronic systolic heart failure. He is currently on 2LPM O2 via NC with O2 sat of 99%. Pt presented with decreased activity tolerance, gait difficulty with impaired balance. He presents with BLE edema. Pt lives with his daughter on ground floor apartment and he ambulates with rollator walker and indep with basic ADLs at baseline. Pt demonstrated decreased O2 saturation with exertion to 88-92% at 2LPM O2 via NC. Pt only able to ambulate short distances d/t increased fatigue and required seated rest breaks. Pt will benefit from skilled acute therapy intervention to improve functional mobility and activity tolerance and minimize burden of care. Prognosis: Excellent Evaluation/Treatment Tolerance: Patient limited by fatigue Medical Staff Made Aware: Yes (Donald WAHL) Plan: Treatment Plan/Goals Established with Patient/Caregiver: Yes Treatment/Interventions: Balance training, Functional activities, Gait training, Equipment training, Patient education, Therapeutic exercises, Transfer training PT Plan: Skilled PT PT Frequency: 4-5 times per week until discharge PT Discharge Recommendations: Home health PT Equipment Recommended: DME wheelchair (to be used for long distances) PT Recommended Transfer Status: Assistive equipment (Comment) Subjective: Donald RN cleared pt for PT eval and treat. Pt agreeable to therapy and ID verified. Current Problem: Decreased activity tolerance, impaired balance, gait instability, increased fall risk. Pain: Denied any pain complaints. Vital Signs: BP Pulse SpO2 Post ambulation 135/68 77 88-92% at RA Home Living: Type of Home: Apartment Lives With: Daughter Home Adaptive Equipment: Walker rolling or standard, Other (Comment) (rollator walker) Prior Level of Function: Level of [place]: Ambulated with assistive device (comment) Receives Help From: Family ADL Assistance: Independent Homemaking Assistance: Needs assistance Driving: Dependent Prior Function Comments: Pt reported he is mod indep with ADLs and he ambulates with rollator walker at baseline Objective: General Visit Information: 68 y/o M admitted 03/04/24 d/t acute on chronic systolic heart failure. Pt p/w shortness of breath. As per chart, pt's daughter was concerned given he has had some increased DAO and was told to come to the hospital. Patient hypoxic to 85% on room air, placed on 4 L nasal cannula here. He denied use of home oxygen. PMH: CHF, new onset A-fib. Family/Caregiver Present: Yes (Daughter) Precautions: Medical Precautions: Fall, Droplet Plus Cognition: Overall Cognitive Status: Within Functional Limits Behavior/Cognition: Alert, Cooperative, Pleasant mood General Assessments: Sensation: Light Touch: RLE Intact, LLE Intact Perception: Inattention/Neglect: Appears intact Initiation: Appears intact Motor Planning: Appears intact Perseveration: Not present Coordination: Movements are Fluid and Coordinated: Yes Postural Control: Postural Control: Within Functional Limits Head Control: WFL Trunk Control: WFL Balance- Sitting: Static Sitting-Balance Support: No upper extremity supported, Right upper extremity supported, Left upper extremity supported Level of Assistance: Independent Balance- Standing: Static Standing-Balance Support: Right upper extremity supported, Left upper extremity supported Static Standing-Level of Assistance: Supervision/touching assistance Static Standing-Comment/Number of Minutes: Good static standing balance and tolerance Functional Assessments: Bed Mobility: Bed Mobility 1: Level of Assistance 1: Independent Bed Mobility To/From: Supine to sit on EOB Assistive Devices And Adaptive Equipments: Bed rail, Head of bed elevated Bed Mobility 2: Level of Assistance 2: Independent Bed Mobility To/From: Sitting EOB to supine Assistive Devices And Adaptive Equipments: Bed rail, Head of bed elevated Transfers: Transfers 1: Level of Assistance 1: Setup/clean-up assistance Transfer To/From: [id number]-Xrtxx/Oysya-pn-Irl Assistive Devices And Adaptive Equipments: Walker, front-wheeled Extremity Assessments: Right Lower Extremity: RLE Assessment: Within Functional Limits Left Lower Extremity: LLE Assessment: Within Functional Limits Overall Lower Extremity/Trunk Tone: Left Lower Extremity: Normal Right Lower Extremity: Normal Trunk: Normal Right Upper Extremity: RUE Assessment: Within Functional Limits Left Upper Extremity: LUE Assessment: Within Functional Limits Upper Extremity Tone: Left Upper Extremity: Normal Right Upper Extremity: Normal Activity Tolerance: Endurance: Tolerates 10 - 20 min exercise with multiple rests Sitting Balance: Supports self independently with both upper extremities Early Mobility/Exercise Safety Screen: Proceed with mobilization - No exclusion criteria met Activity Tolerance Comments: Decreased activity tolerance requiring rest breaks Treatment: Gait training: Gait Training Time Entry: 12 Gait Training Activity 1: Distance (enter in feet): ~50 x 2 Gait Training Activity 1: Indoor surface Assistive Devices And Adaptive Equipments: Walker, front-wheeled Level of Assistance 1: Supervision/touching assistance Gait Training Activity 1 Comment: Ambulated with slow kendy and decreased ROMEL with one seated rest break AM-PAC Basic Mobility: Turning in bed without bedrails: None Lying on back to sitting on edge of flat bed: None Bed to chair: A Little Standing up from chair: None Walk in room: A Little Climbing 3-5 stairs: A Little Mobility Inpatient Raw Score: 21 JH-HLM Goal: 6 Mobility: Highest Level of Mobility Performed (JH-HLM) Walked 25 feet or more (i.e. walked outside of room) Patient Education: Education Documentation Mobility, taught by Jose Alfredo Kan PT at 03/05/2024 3:52 PM. Learner: Patient Readiness: Acceptance Method: Explanation Response: Needs Reinforcement Comment: educated on importance of mobility and AROM exercises Physical Therapy Plan of Care, taught by Jose Alfredo Kan PT at 03/05/2024 3:52 PM. Learner: Patient Readiness: Acceptance Method: Explanation Response: Needs Reinforcement Education Comments No comments found. Goals: Encounter Goals Encounter Goals (Active) Patient will ambulate using rolling walker mod indep x 300 ft at RA without increased SOB or fatigue and without seated rest breaks Start: 03/05/24 Expected End: 03/15/24 Patient will be mod indep with transfers with LRAD to without DME without increased SOB Start: 03/05/24 Expected End: 03/15/24 Treatment Note: If this is the last documented treatment, then it will signify discharge from acute care prior to discharge from the therapy service and will serve as the discharge summary. Jose Alfredo Kan PT OM POLISHER * Al Maloney MD - 03/05/2024 11:01 AM BOTTOM POLISHER Images from the original note were not included. HOSPITALIST PROGRESS NOTE Name: Keyur Randall Sr. CSN: [id number] Admit Date: 03/04/2024 Code Status: Full Code LOS: 1 days HOSPITAL COURSE: Keyur Randall Sr. is a 68 y.o. male with history of recently dx HFrEF, atrial fibrillation, and EtOH abuse. Admitted on 03/04/2024 for acute hypoxemic respiratory failure, decompensated HF. ASSESSEMENT: Principal Problem: Acute on chronic systolic (congestive) heart failure (HCC) Active Problems: Acute hypoxic respiratory failure (HCC) PLAN: Acute on chronic systolic HF Acute hypoxemic respiratory failure Paroxysmal atrial fibrillation HTN Morbid obesity -Cardiology following appreciate recs -cont diuresis with 40 mg lasix BID. Strict I/O, sodium restriction -Wean oxygen as tolerated -Currently in rate controlled A-fib, keep on telemetry. Cont amiodarone 200 mg daily, metop succinate 100 mg daily, digoxin 125 mcg -Continue Eliquis for A-fib hypercoagulability BPH - cont flomax Disposition: Destination after discharge: Home Anticipated or estimated discharge date: >2 midnights VTE prophylaxis: eliquis Destination after discharge: home Anticipated or estimated discharge date: 1-2 midnights Electronically signed by: Al Maloney MD, 03/05/2024 SUBJECTIVE: No acute issues voiced this morning CC: SOB OBJECTIVE: Intake/Output Summary (Last 24 hours) at 03/05/2024 1102 Last data filed at 03/05/2024 0900 Gross per 24 hour Intake -- Output 2000 ml Net -2000 ml Physical Exam: Vitals: 03/05/24 1054 BP: Pulse: 87 Resp: 16 Temp: SpO2: 94% GEN: comfortable, alert HEENT: NCAT, extraocular movements intact NEURO: nonfocal, answers questions and follows commands CV: RRR, no murmur PULM: clear to ausculation, normal effort GI: soft +bs, not tender EXT: no clubbing or cyanosis, 2+ edema Hoang: none Central lines: none Data: Results from last 7 days Lab Units 03/05/24 0456 03/04/24 1511 WBC 10*3/uL 5.69 6.52 HEMOGLOBIN g/dL 14.1 13.8 HEMATOCRIT % 43.3 44.0 PLATELETS 10*3/uL 203 204 MAGNESIUM mg/dL 2.24 -- SODIUM mEq/L 135* 135* POTASSIUM mEq/L 4.5 4.6* CHLORIDE mEq/L 92* 93* CO2 mEq/L 39.7* 39.3* BUN mg/dL 15 12 CREATININE mg/dL 0.84 0.73 EGFR mL/min/1.73m2 96 100 GLUCOSE mg/dL 119* 93 CALCIUM mg/dL 8.6 8.1* PHOSPHORUS mg/dL 4.4 -- ALK PHOS U/L 111 -- BILIRUBIN TOTAL mg/dL 0.80 -- PROTEIN TOTAL g/dL 7.1 -- ALT U/L 24 -- AST U/L 23 -- Medications:Scheduled Meds:amiodarone, 200 mg, Oral, Daily apixaban, 5 mg, Oral, BID digoxin, 125 mcg, Oral, Daily furosemide, 40 mg, Intravenous, q12h ipratropium, 0.5 mg, Nebulization, q6h metoprolol succinate XL, 100 mg, Oral, Daily sodium chloride, 10 mL, Intravenous, q12h GREG tamsulosin, 0.4 mg, Oral, Daily Continuous Infusions:PRN Meds:.PRN medications: acetaminophen, bisacodyl, calcium gluconate, calcium gluconate, dextromethorphan-guaiFENesin, dextrose, dextrose, glucagon, labetalol, magnesium oxide, magnesium sulfate, magnesium sulfate, magnesium sulfate, melatonin, morphine, ondansetron, polyethylene glycol (PEG) 3350, potassium & sodium phosphates, potassium chloride, potassium chloride, potassium chloride, Potassium chloride, potassium phosphate, potassium phosphate, sodium chloride, sodium phosphate, sodium phosphate, traMADol Electronically signed by: Al Maloney MD, 03/05/2024 [facility] [id number] 13:50:56Pending Results Scheduled Orders Name Type Priority Associated Diagnoses Order Schedule POCT Glucose Point of Care Testing - Docked Device Routine Every 15 minutes as needed until discontinued starting 03/05/2024 Oxygen Therapy - Patient Type: Adult; Device: Nasal Cannula; Rate in liters per minute: 2 Lpm; Follow Respiratory Pathway: Yes Respiratory Care Routine For RT frequenc y use only for continuous procedures with task-based reminders at 8a and 8p until discontinued starting 03/05/2024 Non-Invasive Ventilator - Respiratory Care Routine For RT frequenc y use only for continuous procedures with task-based reminders at 8a and 8p until discontinued starting 03/06/2024 Home Oxygen Evaluation Respiratory Care Routine Once for 1 Occurrences starting 03/06/2024 until 03/06/2024 Health Maintenance Due Date Last Done Comments CT Colonography 1956 Colonoscopy 1956 Colorectal Cancer Screening 1955 FIT-DNA 1956 FIT 1956 FOBT 1955 Medicare Annual Wellness (AWV) 1956 Sigmoidoscopy 1955 Pneumococcal Vaccine: 65+ Ye ars (1 of 2 - PCV) 1962 DTaP/Tdap/Td Vaccines (1 - Tdap) 12/28/1975 Hepatitis A Vaccines (1 of 2 - Risk 2-dose series) 12/28/1975 Zoster Vaccines (1 of 2) 2006 Hepatitis B Vaccines (1 of 3 - Risk 3-dose series) 2016 Respiratory Syncytial Virus (RSV) or >=60 (1 - Risk 60-74 years 1-dose series) 2016 Annual Physical 03/03/2023 03/03/2022 Influenza Vaccine (#1) 2023 Lipid Panel 02/28/2029 02/29/2024 HIB Vaccines Aged Out No longer eligi ble based on patient's age to complete this topic HPV Vaccines Aged Out No longer eligi ble based on patient's age to complete this topic IPV Vaccines Aged Out No longer eligi ble based on patient's age to complete this topic Meningococcal Vaccine Aged Out No marlen rafaela eligible based on patient's age to complete this topic Rotavirus Vaccines Aged Out No longer eligible based on patient's age to complete this topic [place] [id number] 13:50:56 Diagnosis 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) - Primary Acute hypoxic respiratory fa ilure (HCC) Acute hypoxic respiratory fa ilure (HCC) [id number]:50:56 [place] [id number] 13:14:57 Problem: Knowledge Deficit Goal: Patient/family/caregiver demonstrates understanding of disease process, treatment plan, medications, and discharge instructions Outcome: Adequate for Discharge Problem: Hemodynamic Status Goal: Patient's vitals signs are stable Outcome: Adequate for Discharge Problem: Excessive Fluid Volume Goal: Fluid and electrolyte balance are achieved/maintained Outcome: Adequate for Discharge Problem: Inadequate Gas Exchange Goal: Patient is adequately oxygenated and ventilation is improved Outcome: Adequate for Discharge Problem: Activity Intolerance/Impaired Mobility Goal: Mobility/activity is maintained at optimum level for patient Outcome: Adequate for Discharge [place] [id number] 13:12:51 Patient discharge stable, IV line and backup sawyer removed, no complaints of pain. Discharge instructions given by Nurse Alicia. [place] [id number] 12:35:20 Images from the original note were not included. 14 Heart-Healthy Diet Five Tips to Better Health A heart-healthy diet is designed to protect your heart from further damage through long-term diet and lifestyle changes. Along with your medication and exercise, a heart-healthy diet can help reduce your risk for heart-related problems. The heart-healthy meal plan is based on limiting total fat, saturated fat, cholesterol and sodium while increasing your intake of fiber and omega-3 fatty acids (good fats). When making changes in your diet: "Take Five" 1. Limit saturated fat and trans fats. Remember DART to identify common sources: Dairy (e.g., whole milk, cream, butter and regular cheese) - Animal fat (e.g., steak or chicken with skin) - Restaurant dishes, some fried foods - Treats (chocolate, cookies and other baked goods, and products with "partially hydrogenated oils" in the ingredient list) 2. Limit the amount of cholesterol you eat to less than 200 mg (milligrams) per day. Foods high in cholesterol include egg yolks, fatty meat, whole milk and regular cheese. 3. Cut back on sodium by getting rid of the saltshaker and avoiding high-sodium foods like deli meats, frozen meals, condiments, canned foods and other convenience items. Check the label and choose foods with no more than 140 mg of sodium per serving. 4. Get more fiber. Aim for 20 to 30 grams of fiber per day from sources like whole grains, fruit, vegetables, and beans. 5. Eat approximately 4 ounces of fish twice a week to get more omega-3 fatty acids. [place], cod, trout and tuna are high in omega-3s. Try low-sodium canned tuna for a less expensive option. Other Heart-Healthy diet information: ? Check with your doctor before drinking ANY alcohol. ? Use caffeine (coffee, tea, soft drinks) in moderation. Caffeine may affect your blood pressure and heart health. ? When dining out: o Ask for nutrition information to help stay on track with your heart-healthy diet. o Ask for sauces and dressings on the side. ? Read the Nutrition Facts label to be sure you are following the Heart-Healthy Guidelines. Heart-Healthy Diet Food Group Avoid Better Choices Milk/Dairy Whole milk Regular or processed cheese products Cream Nonfat (skim) or 1% milk Cheeses low in saturated fat and sodium Nonfat or low-fat yogurt Meat/ Protein Regular ground meats Deep-fried meats Fatty cuts such as ribeye or brisket White meat poultry without sl? Fresh fish or low-sodium canned fish Lean beef cuts: round steak, tenderloin, sirloin tips Vegetable protein foods, like beans, veggie burgers or tofu Ground sirloin or round Vegetables & Fruits Fried fruit such as plantain or fried fruit pies Fruits served with butter or cream Vegetables canned with sodium Fresh fruits and vegetables Frozen fruits and vegetables, no added sauces, gravies or salted seasonings Bread & Cereals High-fat bakery products, such as doughnuts, biscuits or croissants Snacks made with partially hydrogenated oils, like cheese puffs Products with whole grains as the first ingredient Breads with at least 2 grams of fiber per serving Cereals that contain at least 5 grams of fiber per serving Snacks like air-popped popcorn, low-salt pretzels Fats Butter Lard Partially hydrogenated oils Monounsaturated fats such as olive, grapeseed, or canola oil Whipped spreads Spreads with zero trans fat Reading a Food Label Reference: Academy of Nutrition and Dietetics, Adult Nutrition Care Manual, 2012. If you would like to obtain more information on a heart-healthy diet, please contact Outpatient Nutrition Services by calling [phone]. [id number] 10/02 [facility]2025-01-16 12:35:14 Images from the original note were not included. [id number] How to Quit Smoking Smoking is a hard habit to break. About half of all people who've ever smoked have been able to quit. Most people who still smoke want to quit. Here are some of the best ways to stop smoking. Keep in mind how quitting can help your health The health benefits of quitting start right away. They keep improving the longer you go without smoking. Knowing this can help inspire you to stay on track. These benefits occur at any age. Quitting is a good choice whether you are 17 or 70. Some of the health benefits after your last cigarette include: ? After 20 minutes: Your blood pressure and pulse return to normal. ? After 8 hours: Your oxygen levels return to normal. ? After 2 days: Your ability to smell and taste start to get better as damaged nerves regrow. ? After 2 to 3 weeks: Your circulation and lung function get better. ? After 1 to 9 months: You have less coughing, congestion, and shortness of breath. You feel less tired. ? After 1 year: Your risk of heart attack goes down by 50%. ? After 5 years: Your risk of lung cancer goes down by 50%. Your risk of stroke becomes the same as a nonsmoker?s. What about going cold turkey? You may have heard about quitting "cold turkey." This means stopping all at once. Going cold turkey is an option. But it's not the most successful way to quit smoking. Trying to cut back slowly often doesn't work as well either. This may be because it continues the habit of smoking. You may also inhale more smoke while smoking fewer cigarettes. This leads to the same amount of nicotine in your body. But quitting cold turkey or cutting back slowly aren't your only choices. Using tobacco cessation medicines with behavioral counseling may be a better choice to help you succeed. Talk with your provider about your choices for support while you quit smoking. Get support Support programs can be a big help, especially for heavy smokers. These groups offer information, ways to change behavior, and peer support. Ask your provider for some resources. Here are some other ways to find support: ? Smokefree.gov at www.smokefree.gov or 002-MBQZ-RWY (147-150-8094) ? [place] [employer] at www.lung.org/quit-smoking or 825-457-6622 ? [place] [employer] at www.cancer.org/quitsmoking or 650-789-2047 Support at home is important too. Family and friends can offer praise and reassurance. Ask your friends who smoke to support your decision. Try to stay away from situations that trigger the desire to smoke. This may include smoking with your morning coffee. Or smoking after a meal. Create new routines to help decrease your cravings. If the smoker in your life finds it hard to quit, encourage them to keep trying. Remind them of all of the benefits to themselves and people they love. Try eits-hyi-bevdlmf nicotine replacements Nicotine replacement therapy may make it easier to quit. You can buy some aids without a prescription. These include a nicotine patch, gum, and lozenges. But it's best to use these under the care of your healthcare provider. The skin patch gives a steady supply of nicotine. Nicotine gum and lozenges give short-time doses of low levels of nicotine. Both methods reduce the craving for cigarettes. If you have upset stomach (nausea), vomiting, dizziness, weakness, or a fast heartbeat, stop using these products and see your provider. Ask about prescription medicine After reviewing your smoking patterns and past attempts to quit, your provider may offer a prescription medicine. These include bupropion, varenicline, a nicotine inhaler, or nasal spray. Each has advantages and side effects. Your provider can go over these with you. Keep trying Most smokers try to quit many times before they succeed. It?s important not to give up. Last Reviewed Date: 2022 00:00:00 ? [id number] [employer]. All rights reserved. This information is not intended as a substitute for professional medical care. Always follow your healthcare professional's instructions. [facility]2025-01-16 12:35:08 Images from the original note were not included. [id number] Discharge Instructions for Heart Failure The heart is a muscle that pumps oxygen-rich blood to all parts of the body. When you have heart failure, the heart is not able to pump as well as it should. Blood and fluid may back up into the lungs. Some parts of the body don?t get enough oxygen-rich blood to work normally. These problems lead to the symptoms of heart failure. Heart failure can occur because of an injury to the heart or from natural processes. You can control symptoms of heart failure with some lifestyle changes and by following your doctor's advice. Activity Ask your healthcare provider about an exercise program. Simple activities such as walking or gardening can help. Exercising most days of the week can make you feel better. Don't be discouraged if your progress is slow at first. Rest as needed. Stop activity if you get symptoms such as chest pain, lightheadedness, or shortness of breath. Find activities that you enjoy. Examples might be brisk walking, dancing, swimming, and gardening. These will help you stay active and strengthen your heart. Ask your healthcare provider about cardiac rehab. This is a program that helps you to exercise safely. Diet Follow a heart healthy diet. And make sure to limit the salt (sodium) in your diet. Salt causes your body to hold water. This makes your heart work harder because there is more fluid for the heart to pump. Limit your salt as directed by your healthcare provider by doing the following: ? Limit canned, dried, packaged, and fast foods. ? Don't add salt to your food. ? Season foods with herbs instead of salt. ? Watch how much liquids you drink. Drinking too much can make heart failure worse. Talk with your healthcare provider about how much you should drink each day. ? Limit the amount of alcohol you drink. It may harm your heart. Women should have no more than 1 drink a day. Men should have no more than 2 a day. ? Ask that your meals have no added salt when you eat out. ? Talk with your healthcare provider before using salt substitutes. They often have potassium in them. This may not be good for your health. This will depend on how well your kidneys are working and what medicines you?re taking. Some people need extra potassium. Others don?t. Tobacco It's important to quit if you smoke. Smoking increases your chances of having a heart attack by harming the blood vessels that provide oxygen to your heart. This makes heart failure worse. Quitting smoking is the number one thing you can do to improve your health. Enroll in a stop-smoking program to improve your chances of success. Talk with your healthcare provider about medicines or nicotine replacement therapy. Also ask your healthcare provider about smoking cessation support groups. Medicine Take your medicines exactly as prescribed. Learn the names and purpose of each of your medicines. Keep an accurate medicine list and current dosages with you at all times. Don't skip doses. If you miss a dose of your medicine, take it as soon as you remember. If you miss a dose and it's almost time for your next dose, just wait and take your next dose at the normal time. Don't take a double dose. If you are unsure, call your doctor's office. Make sure not to mix up your medicines or forget what you've taken the same day. Refill your prescriptions before you run out of medicine. Talk with your healthcare provider if you have trouble with the cost of your medicines. Weight monitoring Weigh yourself every day. A sudden weight gain can mean your heart failure is getting worse. Weigh yourself at the same time of day and in the same kind of clothes. Ideally, weigh yourself first thing in the morning after you empty your bladder, but before you eat breakfast. Your healthcare provider will show you how to track your weight. They will also tell you when you should call if you have a sudden, unexpected increase in your weight. In general, your healthcare provider may ask you to report if your weight goes up by more than 2 pounds in 1 day, 5 pounds in 1 week, or whatever weight gain you were told by your doctor. This is a sign that you are retaining more fluid than you should be. Clues to weight gain include checking your ankles for swelling, or noticing you are short of breath when you lie down. Follow-up care Have a follow-up appointment as instructed. Depending on the type and severity of heart failure you have, you may need follow-within 7 days from hospital discharge. Keep appointments for checkups and lab tests that are needed to check your medicines and condition. Recognize that your health and even survival depend on you following your provider's advice. Symptoms Heart failure can cause a variety of symptoms. They include: ? Shortness of breath ? Trouble breathing at night, especially when you lie down ? Swelling in the legs and feet or in the belly (abdomen) ? Becoming easily tired ? Irregular or rapid heartbeat ? Weakness or lightheadedness ? Swelling of the neck veins It's important to know what to do if symptoms get worse or if you develop signs of worsening heart failure. Keep track of how you feel each day. Report any changes to your healthcare provider. When to call your healthcare provider Call your healthcare provider right away if you have any of these signs of worsening heart failure: ? Sudden weight gain. This means more than 2 pounds in 1 day or 5 pounds in 1 week, or whatever weight gain you were told to report by your doctor. ? Trouble breathing not related to being active ? New or increased swelling of your legs or ankles ? Swelling or pain in your abdomen ? Breathing trouble at night. This means waking up short of breath or needing more pillows to breathe. ? Frequent coughing that doesn't go away ? Feeling much more tired than usual Call 911 Call 911 right away if you have: ? Severe shortness of breath, such that you can't catch your breath even while resting ? Severe chest pain that does not resolve with rest or nitroglycerin ? [place], foamy mucus with cough and shortness of breath ? An ongoing rapid or irregular heartbeat ? Passing out or fainting ? Stroke symptoms such as sudden numbness or weakness on one side of your face, arm, or leg or sudden confusion, trouble speaking or vision changes Last Reviewed Date: 2021 00:00:00 ? [employer]. All rights reserved. This information is not intended as a substitute for professional medical care. Always follow your healthcare professional's instructions. [facility]2025-01-16 12:32:04 Discharge instruction given to the patient's family member at the bedside. After Visit Summary was discussed and given to the patient's family member. She verbalizes understanding. Patient reported no pain at the time of discharge.Patient went home with family in their private vehicle. [facility]2025-01-16 11:12:01 Images from the original note were not included. [id number] Metoprolol Brand Name(s): Kapspargo Sprinkle?, Lopressor?, Toprol?, Toprol? XL, Dutoprol? (as a combination product containing Metoprolol, Hydrochlorothiazide), Lopressidone? (as a combination product containing Chlorthalidone, Metoprolol), Lopressor? HCT (as a combination product containing Metoprolol, Hydrochlorothiazide); also available generically WHY is this medicine prescribed? Metoprolol is used alone or in combination with other medications to treat high blood pressure. It also is used to treat chronic (long-term) angina (chest pain). Metoprolol is also used to improve survival after a heart attack. Metoprolol also is used in combination with other medications to treat heart failure. Metoprolol is in a class of medications called beta blockers. It works by relaxing blood vessels and slowing heart rate to improve blood flow and decrease blood pressure. High blood pressure is a common condition and when not treated, can cause damage to the brain, heart, blood vessels, kidneys and other parts of the body. Damage to these organs may cause heart disease, a heart attack, heart failure, stroke, kidney failure, loss of vision, and other problems. In addition to taking medication, making lifestyle changes will also help to control your blood pressure. These changes include eating a diet that is low in fat and salt, maintaining a healthy weight, exercising at least 30 minutes most days, not smoking, and using alcohol in moderation. HOW should this medicine be used? Metoprolol comes as a tablet, an extended-release (long-acting) tablet, and an extended-release capsule to take by mouth. The regular tablet is usually taken once or twice a day with meals or immediately after meals. The extended-release tablet and extended-release capsule are usually taken once a day. To help you remember to take metoprolol, take it around the same time(s) every day. Follow the directions on your prescription label carefully, and ask your doctor or pharmacist to explain any part you do not understand. Take metoprolol exactly as directed. Do not take more or less of it or take it more often than prescribed by your doctor. The extended-release tablet may be split. Swallow the whole or half extended-release tablets whole; do not chew or crush them. Swallow the extended-release capsules whole; do not split, chew, or crush them. If you are unable to swallow the capsules, you may open the capsule and sprinkle the contents over a spoonful of soft food, such as applesauce, pudding, or yogurt and swallow the mixture immediately. Do not swallow the mixture more than 60 minutes after you sprinkle the contents of the capsule. Your doctor may start you on a low dose of metoprolol and gradually increase your dose. Metoprolol helps to control your condition but will not cure it. Continue to take metoprolol even if you feel well. Do not stop taking metoprolol without talking to your doctor. If you suddenly stop taking metoprolol you may experience serious heart problems such as severe chest pain, a heart attack, or an irregular heartbeat. Your doctor will probably want to decrease your dose gradually over 1 to 2 weeks and will monitor you closely. Are there OTHER USES for this medicine? Metoprolol is also used sometimes to treat certain types of irregular heartbeats. Talk to your doctor about the possible risks of using this medication for your condition. This medication may be prescribed for other uses; ask your doctor or pharmacist for more information. What SPECIAL PRECAUTIONS should I follow? Before taking metoprolol, ? tell your doctor and pharmacist if you are allergic to metoprolol, any other medications, or any of the ingredients in metoprolol tablets, extended-release tablets, or extended-release capsules. Ask your pharmacist for a list of the ingredients. ? tell your doctor and pharmacist what prescription and nonprescription medications, vitamins, nutritional supplements, and herbal products you are taking or plan to take. Your doctor may need to change the doses of your medications or monitor you carefully for side effects. ? tell your doctor if you have a slow or irregular heartbeat or heart failure. Your doctor may tell you not to take metoprolol. ? tell your doctor if you have or have ever had asthma or other lung diseases; problems with blood circulation; pheochromocytoma (a tumor that develops on a gland near the kidneys and may cause high blood pressure and fast heartbeat); heart or liver disease;diabetes; or hyperthyroidism (an overactive thyroid gland). Also tell your doctor if you have ever had a serious allergic reaction to a food or any other substance. ? tell your doctor if you are , plan to become , or are . If you become while taking metoprolol, call your doctor. ? if you are having surgery, including dental surgery, tell the doctor or dentist that you are taking metoprolol. ? you should know that metoprolol may make you drowsy. Do not drive a car or operate machinery until you know how this medication affects you. ? do not drink any alcoholic drinks or take any prescription or nonprescription medications that contain alcohol if you are taking metoprolol extended-release capsules. Ask your doctor or pharmacist if you do not know if a medication that you plan to take contains alcohol. ? you should know that metoprolol may increase the risk of hypoglycemia (low blood sugar) and prevent the warning signs and symptoms that would tell you that your blood sugar is low. Let your doctor know if you are unable to eat or drink normally or are vomiting while you are taking metoprolol. You should know the symptoms of low blood sugar and what to do if you have these symptoms. ? you should know that if you have allergic reactions to different substances, your reactions may be worse while you are using metoprolol, and your allergic reactions may not respond to the usual doses of injectable epinephrine. What SPECIAL DIETARY instructions should I follow? IUnless your doctor tells you otherwise, continue your normal diet. What should I do IF I FORGET to take a dose? Skip the missed dose and continue your regular dosing schedule. Do not take a double dose to make up for a missed one. What SIDE EFFECTS can this medicine cause? Some side effects can be serious. The following symptoms are uncommon, but if you experience any of them, call your doctor immediately: ? shortness of breath or difficulty breathing ? wheezing ? swelling of the hands, feet, ankles, or lower legs ? weight gain ? fainting ? rapid, pounding, or irregular heartbeat Metoprolol may cause other side effects. Call your doctor if you have any unusual problems while taking this medication. If you experience a serious side effect, you or your doctor may send a report to the Food and Drug Administration's (FDA) MedWatch Adverse Event Reporting program online (https://www.fda.gov/Safety/MedWatch) or by phone ( ). What should I know about STORAGE and DISPOSAL of this medication? Keep this medication in the container it came in, tightly closed, and out of reach of children. Store it at room temperature and away from excess heat and moisture (not in the bathroom). It is important to keep all medication out of sight and reach of children as many containers (such as weekly pill minders and those for eye drops, creams, patches, and inhalers) are not child-resistant and young children can open them easily. To protect young children from poisoning, always lock safety caps and immediately place the medication in a safe location -- one that is up and away and out of their sight and reach. https://www.[employer].org Unneeded medications should be disposed of in special ways to ensure that pets, children, and other people cannot consume them. However, you should not flush this medication down the toilet. Instead, the best way to dispose of your medication is through a medicine take-back program. Talk to your pharmacist or contact your local garbage/recycling department to learn about take-back programs in your community. See the FDA's Safe Disposal of Medicines website (https://goo.gl/c4Rm4p) for more information if you do not have access to a take-back program. What should I do in case of OVERDOSE? In case of overdose, call the poison control helpline at . Information is also available online at https://www.poisonhelp.org/help. If the victim has collapsed, had a seizure, has trouble breathing, or can't be awakened, immediately call emergency services at 911. Symptoms of overdose may include the following: ? nausea ? vomiting ? decreased consciousness or loss of consciousness (coma) ? irregular, fast, or slow heartbeat ? chest pain ? dizziness ? fatigue or weakness ? fainting ? difficulty breathing ? cough or wheezing ? swelling of the hands, feet, ankles, or lower legs What OTHER INFORMATION should I know? Keep all appointments with your doctor. Your blood pressure should be checked regularly to determine your response to metoprolol. Your doctor may ask you to check your pulse (heart rate). Ask your pharmacist or doctor to teach you how to take your pulse. If your pulse is faster or slower than it should be, call your doctor. Do not let anyone else take your medication. Ask your pharmacist any questions you have about refilling your prescription. It is important for you to keep a written list of all of the prescription and nonprescription (rfug-nhc-mhbkoze) medicines you are taking, as well as any products such as vitamins, minerals, or other dietary supplements. You should bring this list with you each time you visit a doctor or if you are admitted to a hospital. It is also important information to carry with you in case of emergencies. This report on medications is for your information only, and is not considered individual patient advice. Because of the changing nature of drug information, please consult your physician or pharmacist about specific clinical use. The [place] [employer] represents that the information provided hereunder was formulated with a reasonable standard of care, and in conformity with professional standards in the field. The [place] [employer] makes no representations or warranties, express or implied, including, but not limited to, any implied warranty of merchantability and/or fitness for a particular purpose, with respect to such information and specifically disclaims all such warranties. Users are advised that decisions regarding drug therapy are complex medical decisions requiring the independent, informed decision of an appropriate health care tech, and the information is provided for informational purposes only. The entire monograph for a drug should be reviewed for a thorough understanding of the drug's actions, uses and side effects. The [employer] does not endorse or recommend the use of any drug. The information is not a substitute for medical care. AHFS? Patient Medication Information?. ? Copyright, 2023. The [employer]?, [address], [address], [place], [place]. All Rights Reserved. Duplication for commercial use must be authorized by [facility]. Selected Revisions: November 04, 2022. AHFS? Patient Medication Information?. ? Copyright, 2024 [facility] [id number] 11:11:55 Images from the original note were not included. [id number] Furosemide Brand Name(s): Lasix?; also available generically IMPORTANT WARNING: Furosemide is a strong diuretic ('water pill') and may cause dehydration and electrolyte imbalance. It is important that you take it exactly as told by your doctor. If you experience any of the following symptoms, call your doctor immediately: decreased urination; dry mouth; thirst; nausea; vomiting; weakness; drowsiness; confusion; muscle pain or cramps; or rapid or pounding heartbeats. WHY is this medicine prescribed? Furosemide is used alone or in combination with other medications to treat high blood pressure. Furosemide is used to treat edema (fluid retention; excess fluid held in body tissues) caused by various medical problems, including heart, kidney, and liver disease. Furosemide is in a class of medications called diuretics ('water pills'). It works by causing the kidneys to get rid of unneeded water and salt from the body into the urine. High blood pressure is a common condition and when not treated, can cause damage to the brain, heart, blood vessels, kidneys and other parts of the body. Damage to these organs may cause heart disease, a heart attack, heart failure, stroke, kidney failure, loss of vision, and other problems. In addition to taking medication, making lifestyle changes will also help to control your blood pressure. These changes include eating a diet that is low in fat and salt, maintaining a healthy weight, exercising at least 30 minutes most days, not smoking, and using alcohol in moderation. HOW should this medicine be used? Furosemide comes as a tablet and as a solution (liquid) to take by mouth. It usually is taken once or twice a day. When used to treat edema, furosemide may be taken daily or only on certain days of the week. When used to treat hypertension, take furosemide around the same time(s) every day. Follow the directions on your prescription label carefully, and ask your doctor or pharmacist to explain any part you do not understand. Take furosemide exactly as directed. Do not take more or less of it or take it more often than prescribed by your doctor. Furosemide controls high blood pressure and edema but does not cure these conditions. Continue to take furosemide even if you feel well. Do not stop taking furosemide without talking to your doctor. Are there OTHER USES for this medicine? This medicine is sometimes prescribed for other uses; ask your doctor or pharmacist for more information. What SPECIAL PRECAUTIONS should I follow? Before taking furosemide, ? tell your doctor and pharmacist if you are allergic to furosemide, sulfonamide medications, any other medications, or any of the ingredients in furosemide tablets or solution. Ask your pharmacist or check the patient information for a list of the ingredients. ? tell your doctor and pharmacist what prescription and nonprescription medications, vitamins, nutritional supplements, and herbal products you are taking or plan to take while taking furosemide. Your doctor may need to change the doses of your medications or monitor you carefully for side effects. ? if you are taking sucralfate (Carafate), take it 2 hours before or after you take furosemide. ? the following nonprescription products may interact with furosemide: aspirin and other salicylates; nonsteroidal anti-inflammatory drugs (NSAIDS) such as ibuprofen (Advil, Motrin, others) and naproxen (Aleve). Be sure to let your doctor and pharmacist know that you are taking these medications before you start taking furosemide. Do not start any of these medications while taking furosemide without discussing with your healthcare provider. ? tell your doctor if you have kidney disease. Your doctor may tell you not to take furosemide. ? tell your doctor if you have or have ever had any condition that stops your bladder from emptying completely, diabetes, gout, systemic lupus erythematosus (SLE, a chronic inflammatory condition), or liver disease. ? tell your doctor if you are , plan to become , or are breast-feeding. Do not breast-feed while taking this medicine. If you become while taking furosemide, call your doctor. ? if you are having surgery, tell the doctor that you are using furosemide. ? plan to avoid unnecessary or prolonged exposure to sunlight and to wear protective clothing, sunglasses, and sunscreen. Furosemide may make your skin sensitive to sunlight. ? you should know that furosemide may cause dizziness, lightheadedness, and fainting when you get up too quickly from a lying position. This is more common when you first start taking furosemide. To avoid this problem, get out of bed slowly, resting your feet on the floor for a few minutes before standing up. Alcohol can add to these side effects. What SPECIAL DIETARY instructions should I follow? If your doctor prescribes a low-salt or low-sodium diet, or to eat or drink increased amounts of potassium-rich foods (e.g., bananas, prunes, raisins, and orange juice) in your diet, follow these instructions carefully. What should I do IF I FORGET to take a dose? Take the missed dose as soon as you remember it. However, if it is almost time for your next dose, skip the missed dose and continue your regular dosing schedule. Do not take a double dose to make up for a missed one. What SIDE EFFECTS can this medicine cause? Some side effects can be serious. If you have any of these symptoms or those listed in the IMPORTANT WARNINGS section, call your doctor immediately or seek emergency medical treatment: ? fever ? ringing in the ears ? loss of hearing ? rash ? hives ? blisters or peeling skin ? itching ? difficulty breathing or swallowing ? yellowing of the skin or eyes If you experience a serious side effect, you or your doctor may send a report to the Food and Drug Administration's (FDA) MedWatch Adverse Event Reporting program online (https://www.fda.gov/Safety/MedWatch) or by phone ( ). What should I know about STORAGE and DISPOSAL of this medication? Keep this medicine in the container it came in, tightly closed, and out of reach of children. Store it at room temperature and away from excess heat and moisture (not in the bathroom). Dispose of unused furosemide solution after 90 days. It is important to keep all medication out of sight and reach of children as many containers (such as weekly pill minders and those for eye drops, creams, patches, and inhalers) are not child-resistant and young children can open them easily. To protect young children from poisoning, always lock safety caps and immediately place the medication in a safe location -- one that is up and away and out of their sight and reach. https://www.upandaway.org Unneeded medications should be disposed of in special ways to ensure that pets, children, and other people cannot consume them. However, you should not flush this medication down the toilet. Instead, the best way to dispose of your medication is through a medicine take-back program. Talk to your pharmacist or contact your local garbage/recycling department to learn about take-back programs in your community. See the FDA's Safe Disposal of Medicines website (https://goo.gl/c4Rm4p) for more information if you do not have access to a take-back program. What should I do in case of OVERDOSE? In case of overdose, call the poison control helpline at . Information is also available online at https://www.poisonhelp.org/help. If the victim has collapsed, had a seizure, has trouble breathing, or can't be awakened, immediately call emergency services at 043. Symptoms of overdose may include: ? extreme thirst ? dry mouth ? dizziness ? confusion ? extreme tiredness ? vomiting ? stomach cramps What OTHER INFORMATION should I know? Keep all appointments with your doctor and the laboratory. Your blood pressure should be checked regularly, and blood tests should be done occasionally. Before having any laboratory test, tell your doctor and the laboratory personnel that you are taking furosemide. Do not let anyone else take your medicine. Ask your pharmacist any questions you have about refilling your prescription. It is important for you to keep a written list of all of the prescription and nonprescription (hsir-csp-ephqxgv) medicines you are taking, as well as any products such as vitamins, minerals, or other dietary supplements. You should bring this list with you each time you visit a doctor or if you are admitted to a hospital. It is also important information to carry with you in case of emergencies. This report on medications is for your information only, and is not considered individual patient advice. Because of the changing nature of drug information, please consult your physician or pharmacist about specific clinical use. The [employer] represents that the information provided hereunder was formulated with a reasonable standard of care, and in conformity with professional standards in the field. The [employer] makes no representations or warranties, express or implied, including, but not limited to, any implied warranty of merchantability and/or fitness for a particular purpose, with respect to such information and specifically disclaims all such warranties. Users are advised that decisions regarding drug therapy are complex medical decisions requiring the independent, informed decision of an appropriate health care tech, and the information is provided for informational purposes only. The entire monograph for a drug should be reviewed for a thorough understanding of the drug's actions, uses and side effects. The [employer] does not endorse or recommend the use of any drug. The information is not a substitute for medical care. AHFS? Patient Medication Information?. ? Copyright, 2023. The [employer]?, [address], [address], [place], [place]. All Rights Reserved. Duplication for commercial use must be authorized by [facility]. Selected Revisions: November 04, 2016. AHFS? Patient Medication Information?. ? Copyright, 2024 [facility]2025-01-15 20:45:33 The patient is Moderately Stable - Low risk of patient condition declining or worsening The patient's goals for the shift include Able to breath better with less sob The clinical goals for the shift include Continue monitor breathing and vital sign within nl range [facility]2025-01-15 07:53:19 Problem: Knowledge Deficit Goal: Patient/family/caregiver demonstrates understanding of disease process, treatment plan, medications, and discharge instructions Outcome: Progressing Problem: Hemodynamic Status Goal: Patient's vitals signs are stable Outcome: Progressing Problem: Excessive Fluid Volume Goal: Fluid and electrolyte balance are achieved/maintained Outcome: Progressing Problem: Inadequate Gas Exchange Goal: Patient is adequately oxygenated and ventilation is improved Outcome: Progressing Problem: Activity Intolerance/Impaired Mobility Goal: Mobility/activity is maintained at optimum level for patient Outcome: Progressing [facility]2025-01-14 22:05:48 The patient is Moderately Stable - Low risk of patient condition declining or worsening The patient's goals for the shift include get a good night sleep The clinical goals for the shift include improve breathing Over the shift, the patient did not make progress toward the following goals. Barriers to progression include . Recommendations to address these barriers include . [facility]2025-01-13 22:31:09 The patient is Moderately Stable - Low risk of patient condition declining or worsening The patient's goals for the shift include get a good night sleep The clinical goals for the shift include improve breathing [facility]2025-01-09 09:22:25 Keyur Randall Sr is a 68 year old male Chief Complaint Patient presents with Knee Pain Patient reports today for concerning's of osteoarthritis regarding bilateral knee. Harinder Joiner MA E MillerAnya [id number] 14:22:59 Chief Complaint Patient presents with Prostate Problem Bph with weak urine stream Cesar Gao MA E MillerAnay [id number] 16:35:05 Chief Complaint Patient presents with Follow-up Hospitalization Post hospital follow up for Afib [facility] Pelon [id number] 13:04:50 [place] [id number] 13:04:50 [id number] 13:04:50 [place] [address]-01-02 18:39:44* Home Health (Routine) - Pending Review Specialty Diagnoses / Procedures Referred By Contac t Referred To Contact Home Health Services Diagnoses Acute heart failure, unspecified heart failure type (CMS/HCC) (HCC) Moderate aortic stenosis Secondary hypertension Acute respiratory failure with hypoxia and hypercapnia (CMS/HCC) (HCC) Alcohol withdrawal delirium, acute, hyperactive (HCC) [place] [address] [facility] [address] [place] [address] Phone: tel: fax: Referral ID Status Reason Start Date Expiration Date Visits Requested Visits Authorized [id number] Pending Review Specialty Services Required 02/22/2024 04/22/2024 999 999 OM POLISHER [id number] 18:39:44* * Auth/Cert (Routine) Specialty Diagnoses / Procedures Referred By Contac t Referred To Contact Diagnoses Anasarca New onset atrial fibrillation (CMS/HCC) (HCC) Acute heart failure, unspecified heart failure type (CMS/HCC) (HCC) Procedures Pending PCS Samm Rivera MD [address] [place] [id number] Phone: tel: fax: [facility] (Cardiology - E7) [address] [place] [id number] Phone: tel: Referral ID Status Reason Start Date Expiration Date Visits Re quested Visits Authorized [id number] 1 1 [id number] 18:39:44 [id number] 18:39:44* Audit-C Score Answer Date of Assessment Author 2 02/15/2024 12:21 AM BOTTOM POLISHER Maurice Fry RN * Intimate Partner Violence Question Answer Date of Assessment Author Within the last year, have y ou been humiliated or emotionally abused in other ways by your partner or ex-partner? No 02/14/2024 8:42 PM BOTTOM POLISHER Delfina Meng RN Within the last year, have y ou been afraid of your partner or ex-partner? No 02/15/2024 12:21 AM BOTTOM POLISHER Stefano Thomas RN Within the last year, have y ou been raped or forced to have any kind of sexual activity by your partner or ex-partner? No 02/15/2024 12:21 AM BOTTOM POLISHER Stefano Thomas RN Within the last year, have y ou been kicked, hit, slapped, or otherwise physically hurt by your partner or ex-partner? No 02/15/2024 12:21 AM BOTTOM POLISHER Stefano Thomas RN * * Calculated C-SSRS Risk Score (Lifetime/Recent) Answer Date of Assessment Author No Risk Indicated 02/14/2024 8:09 PM BOTTOM POLISHER Real Desai RN * [place] Suicide Severity Rating Scale (Screener/Recent Self-Report) Question Answer Date of Assessment Author 1. Wish to be (Past 1 Month) No 024 8:09 PM Rosita Segovia RN 2. Non-Specific Active Suici carrie Thoughts (Past 1 Month) No 02/14/2024 8:09 PM BOTTOM POLISHER Pattie Desai RN 6. Suicidal Behavior (Lifetime) No 4 8:09 PM BOTTOM POLISHER Rosita Desai RN [place] [id number] 18:39:44* Gaudencio Adams MD - 02/22/2024 4:56 PM BOTTOM POLISHER Images from the original note were not included. [facility] Discharge Note Date of discharge:02/22/24 Discharge DiagnosisPrincipal Problem: New onset atrial fibrillation (CMS/HCC) ([facility]) Active Problems: Morbid obesity (HCC) BMI 40.0-44.9, adult (HCC) Hypertension Other heart failure (HCC) Resolved Problems: Acute respiratory failure with hypoxia and hypercapnia (CMS/HCC) (HCC) Alcohol withdrawal delirium, acute, hyperactive (HCC) Hospital CourseThivanessa is a 68 y.o. male with no known past medical history who presented on 1225 to the hospital with worsening exertional dyspnea, pedal edema, chest pain. Patient admitted to the floor with new onset A-fib and congestive heart failure and was being diuresed. However patient is also alcoholic and started going into withdrawal and got 1 mg of Ativan following which he became drowsy. Subsequent ABG showed hypercarbia and started on noninvasive ventilation and transferred to the ICU. Improved and transferred to the floor on room air. Patient was seen by cardiology who recommended discharge as patient continued to improve and patient was advised to continue with amiodarone 400 mg daily until follow-up in 14 days and then it will be decided for 200 mg after that. Eliquis 5 mg twice daily, digoxin, Lasix 20 mg twice daily, metoprolol 75 mg twice daily and tamsulosin was started for BPH concerns. Patient was advised to follow-up with urologist outpatient. Patient appears to be clinically well-appearing and was discharged in stable condition. Patient advised to follow up with PCP and outpatient specialist in less than 1 week. Discharge plan was discussed with patient and all questions were answered. Patient is agreeable to discharge and was cleared by consultants. Information Provided to Patient/FamilyI discussed with the patient/family details of the stay. See After Visit Summary which were reviewed and shared with patient/family. Pertinent Physical Exam At Time of DischargePhysical Exam: GEN: NAD, Conversant EYES: PERRL, no injection of the conjunctiva, HENT: normocephalic, atraumatic, clear oropharynx, Neck: no tracheal deviation, no palpable masses HEART: S1, S2. No significant murmurs LUNG: no wheezing or ronchi, clear to auscultation bilaterally ABD: non-tender, non distended, no masses palpable EXT: No b/l edema, Normal ROM NEURO: CNII-XII grossly intact, AAOx3 PSYCH: normal affect, appropriate answers Patient Condition at DischargeStable DispositionHome with Home Health [6] Discharge MedicationsHome Medications After Discharge Scheduledamiodarone (Pacerone) 200 MG tablet, Take 2 tablets by mouth 1 time each day for 14 days. apixaban (Eliquis) 5 MG tablet, Take 1 tablet by mouth in the morning and 1 tablet in the evening. digoxin (Lanoxin) 125 MCG tablet, Take 1 tablet by mouth 1 time each day. Start: 02/23/24 folic acid (Folvite) 1 MG tablet, Take 1 tablet by mouth 1 time each day for 7 days. Start: 02/23/24 furosemide (Lasix) 20 MG tablet, Take 1 tablet by mouth in the morning and 1 tablet in the evening. metoprolol tartrate (Lopressor) 25 MG tablet, Take 3 tablets by mouth in the morning and 3 tablets before bedtime. tamsulosin (Flomax) 0.4 MG 24 hr capsule, Take 1 capsule by mouth 1 time each day. Start: 02/23/24 thiamine (Vitamin B-1) 100 MG tablet, Take 1 tablet by mouth 1 time each day for 7 days. Do not start before February 23, 2024. Start: 02/23/24 Outpatient Follow-UpHolly Donya Pressley NP [address] [facility] [phone] Please follow with PCP in 5-7 days Tim Tarango MD[address] [facility] [address] [facility] [phone] Please call for follow up appointment Time Spent: I have spent >30 minutes completing this discharge. OM POLISHER [facility] [id number] 18:39:44* Vilma Mena PTA - 02/22/2024 11:44 AM BOTTOM POLISHER Treatment Session Note Patient Name: Keyur Randall Sr. Today's Date: 02/22/2024 Pt seen in room: E7.728/E7.728 Preferred Language: Ecuadorean Assessment & Plan Assessment: PT Assessment: Pt cont to progress towards POC. Pt increased gait distance with ambulating to restroom to the toilet then back to bed. Pt had no noted LOB or c/o dizziness although required cues for RW safety and posture. Pt will cont to benefit from skilled PT to increase strength and endurance while maximizing functional mobilities. Plan: Cont POC per supervising PT Therapy discharge recommendations are made by determining the patient's prior level of function, assessing current function level and establishing rehab potential. The overall discharge plan may be affected by input from Physicians, Care Coordination, medical condition/status, family support and insurance benefits. SubjectiveRN cleared pt as stable for PT Pain:0/10 Objective Activity Tolerance:Endurance: Tolerates 30 min exercise with multiple rests Sitting Balance: Sits without support for more than 30 sec CognitionOverall Cognitive Status: Within Functional Limits Behavior/Cognition: Alert, Cooperative Orientation Level: Oriented X4 TreatmentTherapeutic activity: Therapeutic Activity Therapeutic Activity Time Entry: Therapeutic Activity 1: bed mob: sit to supine Therapeutic Activity 2: transitions: Bedside chair to stand, toilet to stand with RW Bed Mobility: Bed Mobility 1:Level of Assistance 1: Partial/Mod assistance (min assist) Bed Mobility Comments 1: assistance with lifting BLE Bed Mobility To/From: Sitting EOB to supine Assistive Devices And Adaptive Equipments: Bed rail Transfers: Transfers 1: Technique 1: Via walking Level of Assistance 1: Partial/Mod assistance Trials/Comments 1: cues to push up from seat, rather than pulling on RW Transfer To/From: Erx-xe-[id number]/Qemye-ji-Udh Assistive Devices And Adaptive Equipments: Walker, front-wheeled Gait training: Gait Training Time Entry: 20 Gait Training Activity 1:Distance (enter in feet): 10ft, 10ft Gait Training Activity 1: Indoor surface Assistive Devices And Adaptive Equipments: Walker, front-wheeled Level of Assistance 1: Supervision/touching assistance Gait Training Activity 1 Comment: unsteady slow and short guarded strides. Pt educated on keeping RW close to self for safety AM-PAC Basic Mobility:AM-PAC Basic Mobility Inpatient Turning in bed without bedrails: A Little Lying on back to sitting on edge of flat bed: A Little Bed to chair: A Little Standing up from chair: A Lot Walk in room: A Little Climbing 3-5 stairs: A Lot Mobility Inpatient Raw Score: 16 -HLM Goal: 5 Patient Education: Education Documentation Home Exercise Program, taught by Vilma Mena PTA at 02/22/2024 3:35 PM. Learner: Patient Readiness: Acceptance Method: Explanation Response: Verbalizes Understanding, Demonstrated Understanding Precautions, taught by Vilma Mena PTA at 02/22/2024 3:35 PM.Learner: Patient Readiness: Acceptance Method: Explanation Response: Verbalizes Understanding, Demonstrated Understanding Fall Prevention, taught by Vilma Mena PTA at 02/22/2024 3:35 PM.Learner: Patient Readiness: Acceptance Method: Explanation Response: Verbalizes Understanding, Demonstrated Understanding Body Mechanics, taught by Vilma Mena PTA at 02/22/2024 3:35 PM.Learner: Patient Readiness: Acceptance Method: Explanation Response: Verbalizes Understanding, Demonstrated Understanding Mobility, taught by Vilma Mena PTA at 02/22/2024 3:35 PM.Learner: Patient Readiness: Acceptance Method: Explanation Response: Verbalizes Understanding, Demonstrated Understanding Positioning, taught by Vilma Mena PTA at 02/22/2024 3:35 PM.Learner: Patient Readiness: Acceptance Method: Explanation Response: Verbalizes Understanding, Demonstrated Understanding Physical Therapy Plan of Care, taught by Vilma Mena PTA at 02/22/2024 3:35PM. Learner: Patient Readiness: Acceptance Method: Explanation Response: Verbalizes Understanding, Demonstrated Understanding Education CommentsNo comments found. Goals:Encounter Goals Encounter Goals (Active) Patient will perform chair to and from bed transfer with no assistance (Progressing) Start: 02/15/24 Expected End: 03/08/24 Patient will roll bilateral with no assistance using with or w/o bedrails (Progressing) Start: 02/15/24 Expected End: 03/08/24 Patient will perform supine to sit on bed with no assistance demonstrating control (Progressing) Start: 02/15/24 Expected End: 03/08/24 Patient will perform sit to supine on bed with no assistance demonstrating control (Progressing) Start: 02/15/24 Expected End: 03/08/24 Patient will ambulate 300 feet distance using walker with no assistance (Progressing) Start: 02/15/24 Expected End: 03/08/24 Supervising PT: Anila Menjivar progress towards current goals and plan of care was discussed in person with supervising Physical Therapist. Treatment Note: If this is the last documented treatment, then it will signify discharge from acute care prior to discharge from the therapy service and will serve as the discharge summary. Vilma Mena PTA OM POLISHER * HEMA Booker - 02/22/2024 11:00 AM BOTTOM POLISHER Treatment Session Note Patient Name: Keyur Randall Sr. Today's Date: 02/22/2024 Room: [facility] Preferred Language: Ecuadorean Assessment & Plan Assessment: OT Assessment Results: Impaired ADL status, Impaired safe judgment during ADL, Impaired cognition, Impaired endurance, Impaired functional mobility, Impaired trunk control for functional activities Prognosis: Good Barriers to Discharge: Insight into deficits, Medical diagnosis, Past Medical history, Safety awareness, Severity of deficits Evaluation/Treatment Tolerance: Patient tolerated treatment well Medical Staff Made Aware: Yes Strengths: Premorbid level of function, Support of extended family/friends, Support of social community Precautions: Medical Precautions: Fall Precaution Plan: Treatment Plan/Goals Established with Patient/Caregiver: Yes Treatment Interventions: ADL retraining, Functional transfer training, UE strengthening/ROM, Visual perceptual retraining OT Plan: Skilled OT OT Frequency: 3-5 times per week until discharge OT Discharge Recommendations: Home Health OT OT Planned Treatments: Activities of Daily Living, Balance training, Energy conservation training, Therapeutic exercises, Therapeutic activities OT Duration: 1-2 weeks Subjective Pt in bed upon arrival, alert/awake and agreed to participate in OT services Current Problem: Pt is a 68 y.o. male who presents with New onset atrial fibrillation (CMS/HCC) ([facility]) Admitted with complaints of SOB Pain: No pain reported/indicated Objective General Visit Information: Family/Caregiver Present: Yes (Grandson) Pt demo good progress towards goals w/ increased activity tolerance. Pt progressed with bed mobility/transfers for completion of ADLs at sink area w/ less assistance and no signs of distress/LOB noted and remained on RA. Pt will cont to benefit from OT services for further improvement in safety awareness and confucianist of PLOF for ADL/IADLs. Self Care (ADL):Self Care/Home Management (ADLs) Time Entry: 25 Grooming Assistance: Supervision/touching assistance Grooming Deficit: Setup, Supervision/safety, Increased time to complete UE Dressing Activity Component(s): Gown UE Dressing Assistance: Supervision/touching assistance UE Dressing Deficit: Setup, Steadying, Fasteners LE Dressing Activity Component(s): Socks LE Dressing Assistance: Substantial/Max assistance LE Dressing Deficit: Setup, Verbal cueing, Don/doff R sock, Don/doff L sock ADL Comments: Pt in bed upon arrival, grandson at bedside and agreed to participate. Required assist for donning socks, bed mob > EOB w/ good unsupported sit balance w/ time to recover. RN arrived at bedside for removal of hoang and transitioned back to supine for task. Transitioned back to sit EOB, completed STS/few steps for TF to chair in front of sink for recovery. Completed STS and few more steps forward to get closer to sink, sat down and completed G/H task at sink area w/ extensive time as needed. Provided edu to grandsunday at bedside for cont HEP ther ex, verbalized understanding and agreed to cont w/ therapy upon PT arriving soon. Left seated at sink area w/ family, call light/phone within reach and RN notified. TreatmentBed Mobility: Bed Mobility Bed Mobility: Yes Bed Mobility 1 Level of Assistance 1: Partial/Mod assistance Bed Mobility Comments 1: Min A OPTOMETRY TEACHER for trunk/BLE mgmt and cues for safety/sequencing Bed Mobility To/From: Supine to sit on EOB, Sitting EOB to supine Assistive Devices And Adaptive Equipments: Bed rail, Head of bed elevated Transfers:Transfers Transfer: Yes Transfer 1 Technique 1: Via walking, Stand step Level of Assistance 1: Partial/Mod assistance Trials/Comments 1: STS/TF; Mod A, few steps; min A-CGA Transfer To/From: Bed, Ile-nl-Qolqw/[id number]-Ask, Chair Assistive Devices And Adaptive Equipments: Walker, front-wheeled Therapeutic ActivityTherapeutic Activity Time Entry: 15 Therapeutic Activity 1: Bed mobility x2/unsupported sit balance Therapeutic Activity 2: Sit to stand/transfers Therapeutic Activity 3: Approx 5ft ambulation using RW AM-PAC Daily Activity:Putting on and taking off regular lower body clothing: Total Bathing (including washing, rinsing, drying): A Lot Toileting, which includes using toilet, bedpan or urinal: A Lot Putting on and taking off regular upper body clothing: A Little Taking care of personal grooming such as brushing teeth: A Little Eating Meals: None AM-PAC Daily Activity Raw Score: 15 MobilityHighest Level of Mobility Performed (-HLM): Transferred to chair/commode Patient Education:Education Documentation Home Exercise Program, taught by HEMA Booker at 02/22/2024 2:53 PM. Learner: Patient Readiness: Acceptance Method: Explanation Response: Verbalizes Understanding Body Mechanics, taught by HEMA Booker at 02/22/2024 2:53 PM.Learner: Patient Readiness: Acceptance Method: Explanation Response: Verbalizes Understanding Mobility Training, taught by HEMA Booker at 02/22/2024 2:53 PM.Learner: Patient Readiness: Acceptance Method: Explanation Response: Verbalizes Understanding ADL Training, taught by HEMA Booker at 02/22/2024 2:53 PM.Learner: Patient Readiness: Acceptance Method: Explanation Response: Verbalizes Understanding Education CommentsNo comments found. Goals:Encounter Goals Encounter Goals (Active) Patient will complete grooming standing at the sink with supvn (Progressing) Start: 02/15/24 Expected End: 02/29/24 Patient will complete dressing with supvn (Progressing) Start: 02/15/24 Expected End: 02/29/24 Patient will complete toilet transfer with supvn (Progressing) Start: 02/15/24 Expected End: 02/29/24 Supervising Occupational Therapist: Zeke Morgan OT Treatment Note: If this is the last documented treatment, then it will signify discharge from acute care prior to discharge from the therapy service and will serve as the discharge summary. HEMA oBoker OM POLISHER * Tim Tarango MD - 02/22/2024 7:46 AM BOTTOM POLISHER Images from the original note were not included. [facility] Cardiology [facility] [address] [place] [address] [phone] Cardiology Progress Note PATIENT: Keyur Randall . MR NO: [id number] DATE OF : 1955 Visit Type: Inpatient Follow up Subjective He sitting by the bedside eating breakfast and tells me he is feeling a lot better. He denies any chest pain, his breathing is okay, and he has not experienced any palpitations. OBJECTIVE PRN medications: calcium gluconate, dextrose, dextrose, glucagon, LORazepam, magnesium sulfate, melatonin, ondansetron, potassium & sodium phosphates OR potassium & sodium phosphates, potassium chloride OR potassium chloride OR potassium chloride OR Potassium chloride, sennosides, [COMPLETED] Insert peripheral IV AND [COMPLETED] Saline lock IV AND sodium chloride, sodium chloride, sodium phosphates 45 mmol in sodium chloride 0.9 % 100 mL IVPB amiodarone, 400 mg, Oral, BID apixaban, 5 mg, Oral, BID digoxin, 125 mcg, Oral, Daily folic acid, 1 mg, Oral, Daily furosemide, 20 mg, Intravenous, q8h metoprolol tartrate, 50 mg, Oral, q8h GREG thiamine, 100 mg, Oral, Daily ExamBP 123/66 | Pulse 89 | Temp 36.9 ?C (98.4 ?F) | Resp 17 | Ht 1.803 m (5' 11") | Wt 133 kg (292 lb 12.3 oz) | BMI 40.83 kg/m? Patient Vitals for the past 24 hrs: BP Temp Temp src Pulse Resp SpO2 Weight 02/22/24 0733 -- -- -- 89 17 93 % -- 02/22/24 0732 123/66 -- -- -- -- -- -- 02/22/24 0659 -- -- -- -- -- -- 133 kg (292 lb 12.3 oz) 02/22/24 0523 -- -- Oral 79 18 95 % -- 02/22/24 0523 -- 36.9 ?C (98.4 ?F) -- -- -- -- -- 02/22/24 0522 118/68 -- -- -- -- -- -- 02/21/242244 -- -- Oral 71 18 94 % -- 02/21/242244 129/69 -- -- -- -- -- -- 02/21/242244 -- 36.7 ?C (98.1 ?F) -- -- -- -- -- 02/21/241919 -- -- Oral 66 18 94 % -- 02/21/241919 131/67 -- -- -- -- -- -- 02/21/241919 -- 36.6 ?C (97.9 ?F) -- -- -- -- -- 02/21/24 1506 -- -- Oral (!) 111 18 97 % -- 02/21/24 1505 (!) 163/89 -- -- -- -- -- -- 02/21/24 1503 -- 36.7 ?C (98.1 ?F) -- -- -- -- -- 02/21/24 1107 -- -- Oral 75 -- 95 % -- 02/21/24 1106 116/80 -- -- -- -- -- -- 02/21/24 1105 -- 36.6 ?C (97.8 ?F) -- -- -- -- -- 02/21/24 0917 -- -- -- 88 -- -- -- 02/21/24 0759 -- -- Oral 98 18 94 % -- 02/21/24 0759 -- 36.8 ?C (98.2 ?F) -- -- -- -- -- 02/21/24 0758 132/70 -- -- -- -- -- -- Respiratory: Lungs are clear to auscultationCardiovascular exam: Irregularly irregular Gastrointestinal: Soft, non-tender, normal bowel sounds. Vascular/Lymphatics: Diminished bilateral lower extremity distal pulses, 1+ bilateral lower extremity edema. I/O last 3 completed shifts:In: 240 (1.8 mL/kg) [P.O.:240] Out: 3726 (28.1 mL/kg) [Urine:3725 (0.8 mL/kg/hr); Stool:1] Weight: 132.8 kg Diagnostic ResultsTelemetry: Atrial fibrillation with a ventricular rate in the 70s and 80s Lab ResultsComponent Value Date Sodium Lvl 134 (L) 02/22/2024 Potassium Lvl 3.7 02/22/2024 Chloride Lvl 93 (L) 02/22/2024 CO2 Lvl 35.0 (H) 02/22/2024 Magnesium 2.41 02/20/2024 Lab ResultsComponent Value Date Creatinine Lvl 0.80 02/22/2024 Estimated Creatinine Clearance: 124.7 mL/min (by C-G formula based on SCr of0.8 mg/dL). Lab Results Component Value Date ALT 10 02/20/2024 AST 22 02/20/2024 Alkaline Phosphatase 102 02/20/2024 Bilirubin Total 3.10 (H) 02/20/2024 Lab ResultsComponent Value Date HS Troponin I 1 Hour 10 02/14/2024 HS Troponin I 0 to 1 Hour Delta 2 02/14/2024 HS Troponin I Baseline 8 02/14/2024 Recent Labs:Diagnostic Results Chemistries and Metabolic Panel Results from last 7 days Lab Units 02/22/24 0453 02/21/24 0358 02/20/24 0510 02/19/24 1444 02/19/24 0327 02/18/24 0055 02/17/24 0326 02/16/24 0745 SODIUM mEq/L 134* 136 132* 133* 132* < > 136 135* POTASSIUM mEq/L 3.7 3.7 3.5 3.4 3.6 < > 4.0 5.1* CO2 mEq/L 35.0* 33.6* 33.3* 35.6* 38.4* < > >40.0* 37.5* CHLORIDE mEq/L 93* 94* 92* 89* 88* < > 89* 92* CALCIUM mg/dL 8.6 9.0 8.5 8.6 8.5 < > 8.4 8.3 BUN mg/dL 15 13 14 19 19 < > 12 16 CREATININE mg/dL 0.80 0.76 0.87 0.91 0.98 < > 0.96 0.86 MAGNESIUM mg/dL -- -- 2.41 2.13 2.09 < > 1.99 2.15 ALT U/L -- -- 10 -- -- -- 13 19 < > = values in this interval not displayed. CBCResults from last 7 days Lab Units 02/22/24 0453 02/21/2435702/20/24 0510 HEMOGLOBIN g/dL 15.4 16.7 16.0 HEMATOCRIT % 45.4 48.7 48.4 WBC 10*3/uL 8.76 10.12* 11.62* PLATELETS 10*3/uL 177 172 153* Cardiac Labs: I have personally review imaging, labs and other provider notes for today. Assessment: Hypercapnic respiratory failure.New onset of atrial fibrillation with rapid ventricular response. 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 Moderate to severe aortic stenosis. Morbid obesity. Likely obstructive sleep apnea. Malignant hypertension. Alcohol withdrawal. PLANMr. Randall is a 68-year-old man with the above medical problems who has improved significantly over the past few days and now his heart rate is much better controlled. He did have some short bursts of rapid ventricular response to his atrial fibrillation yesterday afternoon, however his resting heart rate is now in the 70s. We will continue with his present management. Tim Tarango M.D.Cardiology [facility] , OM POLISHER * Gaudencio Adams MD - 02/21/2024 2:03 PM BOTTOM POLISHER Images from the original note were not included. [facility] Progress Note SubjectivePatient seen and examined this a.m., and has no acute complaints at this time. Patient feeling better today significantly since being with his daughter at bedside. Plan discussed in detail and all questions were answered. ObjectiveLast Recorded Vitals Visit Vitals BP 116/80 Pulse 75 Temp 36.6 ?C (97.8 ?F) Resp 18 Ht 1.803 m (5' 11") Wt 131 kg (289 lb 7.4 oz) SpO2 95% BMI 40.37 kg/m? Smoking Status Never BSA 2.56 m? Lab Results/Imaging Pertinent Labs : Lab Results Component Value Date WBC 10.12 (H) 02/21/2024 Hgb 16.7 02/21/2024 Hct 48.7 02/21/2024 Plt Count 172 02/21/2024 Lab ResultsComponent Value Date Sodium Lvl 136 02/21/2024 Potassium Lvl 3.7 02/21/2024 Chloride Lvl 94 (L) 02/21/2024 CO2 Lvl 33.6 (H) 02/21/2024 BUN 13 02/21/2024 Creatinine Lvl 0.76 02/21/2024 Glucose Lvl 101 (H) 02/21/2024 POC Glu 92 02/21/2024 I have personally reviewed Labs and vitals Medicationsamiodarone, 400 mg, Oral, BID apixaban, 5 mg, Oral, BID digoxin, 125 mcg, Oral, Daily folic acid, 1 mg, Oral, Daily furosemide, 20 mg, Intravenous, q8h metoprolol tartrate, 50 mg, Oral, q8h GREG thiamine, 100 mg, Oral, Daily Continuous Meds PRN MedsPRN medications: calcium gluconate, dextrose, dextrose, glucagon, LORazepam, magnesium sulfate, melatonin, ondansetron, potassium & sodium phosphates OR potassium & sodium phosphates, potassium chloride OR potassium chloride OR potassium chloride OR Potassium chloride, sennosides, [COMPLETED] Insert peripheral IV AND [COMPLETED] Saline lock IV AND sodium chloride, sodium chloride, sodium phosphates 45 mmol in sodium chloride 0.9 % 100 mL IVPB Physical ExamGEN: NAD, Conversant EYES: PERRL, no injection of the conjunctiva, HENT: normocephalic, atraumatic, clear oropharynx, Neck: no tracheal deviation, no palpable masses HEART: S1, S2. No significant murmurs LUNG: no wheezing or ronchi, clear to auscultation bilaterally ABD: non-tender, non distended, no masses palpable EXT: No b/l edema, Normal ROM NEURO: CNII-XII grossly intact, AAOx3 PSYCH: normal affect, appropriate answers AssessmentThis is a 68 y.o. male with no known past medical history who presented on 1225 to the hospital with worsening exertional dyspnea, pedal edema, chest pain. Patient admitted to the floor with new onset A-fib and congestive heart failure and was being diuresed. However patient is also alcoholic and started going into withdrawal and got 1 mg of Ativan following which he became drowsy. Subsequent ABG showed hypercarbia and started on noninvasive ventilation and transferred to the ICU. Improved and transferred to the floor on room air. Assessment & Plan Acute respiratory failure with hypoxia and hypercapnia (CMS/HCC) (HCC) Much improved Still on NC 2 liters Wean down to room air Alcohol withdrawal delirium, acute, hyperactive (HCC) CIWA Protocol Now on PO Thiamine Folate, MVI Downgrade to telemetry New onset atrial fibrillation (CMS/HCC) (HCC) Started on amiodarone gtt by cardio, transitioned to oral Amio Toprol has been increased to 50 mg Therapeutic Lovenox for AC, and transition to Eliquis 5 mg twice daily Cardio recs appreciated Other heart failure (HCC) Continue Lasix, lasix drip discontinued Cardiology following Recs are appreciated Morbid obesity (HCC) Poor prognosis factor BMI 40.0-44.9, adult (HCC) Poor prognosis factor Hypertension Improved with diuresis Current Diet: Adult Diet Heart HealthyVTE prophylaxis: apixaban - 5 MG Disposition: Awaiting further clinical improvement. Awaiting cardiac clearance Gaudencio Adams MD OM POLISHER * Wilber Butts MD - 02/21/2024 8:35 AM BOTTOM POLISHER Images from the original note were not included. CARDIOLOGY Patient: Keyur Randall Sr. : 1955 Date of Visit: 02/21/24 Visit Type: Inpatient Cardiology Progress Note Subjective Improved SOB. Current Medications: amiodarone, 400 mg, Oral, BID digoxin, 125 mcg, Oral, Daily enoxaparin, 150 mg, Subcutaneous, q12h folic acid, 1 mg, Oral, Daily furosemide, 20 mg, Intravenous, q8h metoprolol tartrate, 50 mg, Oral, q8h GREG multivitamin, 1 tablet, Oral, Daily thiamine, 100 mg, Oral, Daily Exam BP 132/70 | Pulse 98 | Temp 36.8 ?C (98.2 ?F) | Resp 18 | Ht 1.803 m (5' 11") | Wt 131 kg (289 lb 7.4 oz) | BMI 40.37 kg/m? Intake/Output Summary (Last 24 hours) at 02/21/2024 0835 Last data filed at 02/21/2024 0418 Gross per 24 hour Intake 90 ml Output 3675 ml Net -3585 ml Physical Examination: Reviewed Vitals General: Well appearing, well nourished in no distress. Neck: Supple without lymphadenopathy. Carotids: no bruits. Veins: No jugular venous distention. Respiratory: +mild rhonchi, rales. Breathing unlabored. Cardiovascular: IRIR, no murmur or gallop. Normal S1, S2. No S3, S4. Chest wall: No swelling, ecchymosis, erythema or deformity. Abdomen: Soft, non-tender, non-distended, no organomegaly, no masses. Extremities: No clubbing, cyanosis, but +edema. Skin: No dermatitis, ulcers, or xanthomas. Neurologic: A/O x 3. No focal deficits. Diagnostic Results Telemetry REVIEWED Results from last 7 days Lab Units 02/21/24 0358 02/20/24 0510 02/19/24 1444 02/19/24 0327 02/18/24 0055 02/17/24 0326 02/16/24 0745 02/14/24 2146 02/14/24203402/14/242034 SODIUM mEq/L 136 132* 133* 132* < > 136 135* -- -- 135* POTASSIUM mEq/L 3.7 3.5 3.4 3.6 < > 4.0 5.1* -- -- 4.2 CHLORIDE mEq/L 94* 92* 89* 88* < > 89* 92* -- -- 96* CO2 mEq/L 33.6* 33.3* 35.6* 38.4* < > >40.0* 37.5* -- -- 33.3* MAGNESIUM mg/dL -- 2.41 2.13 2.09 < > 1.99 2.15 -- < > -- CALCIUM mg/dL 9.0 8.5 8.6 8.5 < > 8.4 8.3 -- -- 8.9 PHOSPHORUS mg/dL -- 2.7 2.0* 2.6 < > 4.7 4.5 -- < > -- BUN mg/dL 13 14 19 19 < > 12 16 -- -- 13 CREATININE mg/dL 0.76 0.87 0.91 0.98 < > 0.96 0.86 -- -- 1.00 EGFR mL/min/1.73m2 99 95 92 85 < > 87 95 -- -- 82 ALT U/L -- 10 -- -- -- 13 19 -- -- -- AST U/L -- 22 -- -- -- 17 26 -- -- -- BILIRUBIN TOTAL mg/dL -- 3.10* -- -- -- 2.10* 1.30* -- -- -- HEMOGLOBIN g/dL 16.7 16.0 -- 15.7 < > 15.1 14.7 -- -- 15.8 HEMATOCRIT % 48.7 48.4 -- 48.1 < > 47.4 45.8 -- -- 49.9 PLATELETS 10*3/uL 172 153* -- 134* < > 138* 160 -- -- 164 TROPONIN I, HIGH SENSITIVITY, 1 HR pg/mL -- -- -- -- -- -- -- 10 -- -- TROPONIN I, HIGH SENSITIVITY, 0 TO 1HR -- -- -- -- -- -- -- 2 -- -- TROPONIN I, HIGH SENSITIVITY, BASELINE pg/mL -- -- -- -- -- -- -- -- -- 8 BNP pg/mL -- -- -- -- -- -- -- -- -- 257* < > = values in this interval not displayed. Assessment & Plan Principal Problem: New onset atrial fibrillation (CMS/HCC) (HCC) Active Problems: Morbid obesity (HCC) BMI 40.0-44.9, adult (HCC) Hypertension Acute respiratory failure with hypoxia and hypercapnia (CMS/HCC) (HCC) Other heart failure (HCC) Alcohol withdrawal delirium, acute, hyperactive (HCC) Resolved Problems: * No resolved hospital problems. * 68 y.o. male with no known past medical history who presented on 1225 to the hospital with worsening exertional dyspnea, pedal edema, chest pain. Patient admitted to the floor with new onset A-fib and congestive heart failure and was being diuresed. However patient is also alcoholic and started going into withdrawal and got 1 mg of Ativan following which he became drowsy. Subsequent ABG showed hypercarbia and started on noninvasive ventilation and transferred to the ICU Pt subsequently improved and transferred to floor. Sats stable on RA. HR much improved -Increased metoprolol to 50-continue amiodarone -continue lasix -change lovenox to oral anticoag eliquis 5 BID Wilber Butts MD, [facility]: [facility] [place] [address] | [address], [address] | [place] [facility] [address] | 02/21/24 OM POLISHER * Yissel Slaughter MD - 02/20/2024 8:36 PM BOTTOM POLISHER Subjective Patient awake and alert, seen in ICU. Calm, oriented x 3. Denies any new issues Multiple family members at the bedside. Objective Last Recorded Vitals Blood pressure 149/73, pulse 91, temperature 36.7 ?C (98 ?F), resp. rate (!) 11, height 1.803 m (5' 11"), weight 134 kg (295 lb 10.2 oz), SpO2 99%. Physical Exam:Constitutional: Appearance: Normal appearance. HENT: Head: Normocephalic and atraumatic. Right Ear: External ear normal. Left Ear: External ear normal. Mouth/Throat: Mouth: Mucous membranes are moist. Eyes: Conjunctiva/sclera: Conjunctivae normal. Pupils: Pupils are equal, round, and reactive to light. Cardiovascular: Rate and Rhythm: Normal rate and regular rhythm. Pulses: Normal pulses. Heart sounds: Normal heart sounds. Pulmonary: Effort: Pulmonary effort is normal. Breath sounds: Normal breath sounds. Abdominal: General: Bowel sounds are normal. There is no distension. Palpations: Abdomen is soft. Tenderness: There is no abdominal tenderness. There is no guarding. Musculoskeletal: General: No swelling or tenderness. Skin: General: Skin is warm. Neurological: General: No focal deficit present. Mental Status: He is alert and oriented to person, place, and time. Mental status is at baseline. Motor: No weakness. Psychiatric: Mood and Affect: Mood normal. Behavior: Behavior normal. Thought Content: Thought content normal. Judgment: Judgment normal. Assessment & PlanAcute respiratory failure with hypoxia and hypercapnia (CMS/HCC) (HCC) Much improved Still on NC 2 liters Wean down to room air Alcohol withdrawal delirium, acute, hyperactive (HCC) CIWA Protocol Now on PO Thiamine Folate, MVI Downgrade to telemetry New onset atrial fibrillation (CMS/HCC) (HCC) Started on amiodarone gtt by cardio, transitioned to oral Amio Digoxin added today Also started on PO metoprolol Therapeutic Lovenox for AC Cardio recs appreciated Other heart failure (HCC) Continue Lasix, lasix drip discontinued Cardiology following Recs are appreciated Morbid obesity (HCC) Poor prognosis factor BMI 40.0-44.9, adult (HCC) Poor prognosis factor Hypertension Improved with diuresis DispoTransfer to telemetry, likely dc home in 1-2 days Current Diet: Adult Diet Heart Healthy OM POLISHER * Apolinar Garg, PT - 02/20/2024 3:12 PM BOTTOM POLISHER Treatment Session Note Patient Name: Keyur Randall Sr. Today's Date: 02/20/2024 Pt seen in room: E3.321/E3.321 Preferred Language: Ecuadorean Assessment & Plan Assessment: PT Assessment: No c/o pain, c/o feeling tired. Showed some progress for today. Bed Mobility: Max A. Transfers: (sit to stand max A) Min to Mod A with assistive device R/W, (unsteady)- (unable to stand pivot w/o assistive device), Gait: R/W, with gait belt, W/C to follow2 feet Min to Mod A (unsteady) as per Nurse Doreen- "don't walk too much for today"- High Fall Risks, showed Good potential in benefiting with PT, to achieve highest Functional Level of [place] with the least possible physical burden of care with overall Functional Mobility Tasks, and Gait, with Functional balance, and safety, to prepare to next Functional level of care. Prognosis: Good Barriers to Discharge: Medical diagnosis, Severity of deficits Evaluation/Treatment Tolerance: Patient tolerated treatment well, Patient limited by fatigue Medical Staff Made Aware: Yes Strengths: Ability to acquire knowledge, Attitude of self, Coping skills, Living arrangement secure, Support and attitude of living partners, Support of extended family/friends Plan: Treatment Plan/Goals Established with Patient/Caregiver: Yes Treatment/Interventions: Balance training, Bed mobility training, Caregiver training, Functional activities, Gait training, Patient education, Positioning, Posture/Body mechanics baring, Therapeutic exercises, Wheelchair assessment and management PT Plan: Skilled PT PT Frequency: 5-7 times per week until discharge PT Discharge Recommendations: Inpatient rehab facility placement Equipment Recommended: Other PT Recommended Transfer Status: Total assist with equipiment Therapy discharge recommendations are made by determining the patient's prior level of function, assessing current function level and establishing rehab potential. The overall discharge plan may be affected by input from Physicians, Care Coordination, medical condition/status, family support and insurance benefits. Subjective Medical records reviewed, PT order verified, followed up with Nurse Doreen, cleared for PT Treat. Initiated PT, pt semisupine in bed, pt's multiple family/friends present in room, no c/o pain, agreed to participate with PT. Pain: Pain Assessment: 0-10 Pain Score: 0 Health Conditions Health Conditions Pain Interference with Therapy Activities: Occasionally (vitals checked: After PT: up inbedside reclining chair with BLE's elevated: 149/85 (95)- 116 bpm, 100% O2 sat at 7 lpm O2 use.) Objective General Visit Information: PT Last Visit PT Received On: 02/20/24 General Family/Caregiver Present: Yes (Grandson) Activity Tolerance:Endurance: Tolerates 30 min exercise with multiple rests Sitting Balance: Sits without support for more than 30 sec CognitionOverall Cognitive Status: Within Functional Limits Behavior/Cognition: Alert, Cooperative, Pleasant mood Orientation Level: Oriented X4 TreatmentTherapeutic exercise: Therapeutic Exercise Time Entry: 8 Therapeutic Exercise Activity 1: BLE's: Toes Flex- ext, Ankles Eversion/ Inversion, Ankles Circles/ CW-CCW, Quads sets/ Gluts Sets, Heels slides, SAQ, Hips Add- Abd, SLR, Hips IR/ER. Position 1: Supine Therapeutic activity:Therapeutic Activity Therapeutic Activity Time Entry: 22 Therapeutic Activity 1: Bed Mobility Training, sit to stand to sit, Transfers Training, Gait Training. Bed Mobility: Bed Mobility 1:Level of Assistance 1: Substantial/Max assistance Bed Mobility Comments 1: needed extra time, with difficulty, with guarding- cuing for proper bed positioning, Bed mobility- log rolling technique. Bed Mobility To/From: Roll left/right, Sitting EOB to supine, Supine to sit on EOB, Supine to long sit, Long sit to supine Assistive Devices And Adaptive Equipments: No device, Bed rail, Head of bed elevated Transfers: Transfers 1: Technique 1: Stand pivot, Via walking Level of Assistance 1: Partial/Mod assistance, Substantial/Max assistance Trials/Comments 1: unsteady, guarded- cuing for proper hands/ feet placement, proper posture, body mechanics, balance, safety. Note: Max A sit to stand, easier for transfers using R/W Transfer To/From: Bed, Chair, [id number] Assistive Devices And Adaptive Equipments: No device, Walker, front-wheeled, Other (gait belt) Gait training: Gait Training Activity 1: Distance (enter in feet): 2 feet Gait Training Activity 1: Indoor surface Assistive Devices And Adaptive Equipments: Walker, front-wheeled, Other (comment) (gait belt) Level of Assistance 1: Partial/Mod assistance Gait Training Activity 1 Comment: unsteady, slow, short guarded strides,wide base of support, slouched fwd faulty posture, knees/ hips flexed, very short, slow stride- cuing for proper posture, gait mechanics, balance, safety. AM-PAC Basic Mobility:AM-PAC Basic Mobility Inpatient Turning in bed without bedrails: A Lot Lying on back to sitting on edge of flat bed: A Lot Bed to chair: A Lot Standing up from chair: A Lot Walk in room: A Lot Climbing 3-5 stairs: Total Mobility Inpatient Raw Score: 11 [facility] Goal: 4 Modified [place] Patient Education: Education Documentation Other Physical Therapy Education Topics, taught by Apolinar Garg PT at 02/20/2024 8:03 PM. Learner: Family, Patient Readiness: Acceptance Method: Explanation, Demonstration Response: Needs Reinforcement Home Exercise Program, taught by Apolinar Garg PT at 02/20/2024 8:03 PM. Learner: Family, Patient Readiness: Acceptance Method: Explanation, Demonstration Response: Needs Reinforcement Precautions, taught by Apolinar Garg PT at 02/20/2024 8:03 PM.Learner: Family, Patient Readiness: Acceptance Method: Explanation, Demonstration Response: Needs Reinforcement Pain Management, taught by Apolinar Garg PT at 02/20/2024 8:03 PM.Learner: Family, Patient Readiness: Acceptance Method: Explanation, Demonstration Response: Needs Reinforcement Fall Prevention, taught by Apolinar Garg PT at 02/20/2024 8:03 PM.Learner: Family, Patient Readiness: Acceptance Method: Explanation, Demonstration Response: Needs Reinforcement Body Mechanics, taught by Apolinar Garg PT at 02/20/2024 8:03 PM.Learner: Family, Patient Readiness: Acceptance Method: Explanation, Demonstration Response: Needs Reinforcement Mobility, taught by Apolinar Garg PT at 02/20/2024 8:03 PM.Learner: Family, Patient Readiness: Acceptance Method: Explanation, Demonstration Response: Needs Reinforcement Positioning, taught by Apolinar Garg PT at 02/20/2024 8:03 PM.Learner: Family, Patient Readiness: Acceptance Method: Explanation, Demonstration Response: Needs Reinforcement Physical Therapy Plan of Care, taught by Apolinar Garg PT at 02/20/2024 8:03PM. Learner: Family, Patient Readiness: Acceptance Method: Explanation, Demonstration Response: Needs Reinforcement Education CommentsNo comments found. Goals:Encounter Goals Encounter Goals (Active) Patient will perform chair to and from bed transfer with no assistance (Progressing) Start: 02/15/24 Expected End: 03/08/24 Patient will roll bilateral with no assistance using with or w/o bedrails (Progressing) Start: 02/15/24 Expected End: 03/08/24 Patient will perform supine to sit on bed with no assistance demonstrating control (Progressing) Start: 02/15/24 Expected End: 03/08/24 Patient will perform sit to supine on bed with no assistance demonstrating control (Progressing) Start: 02/15/24 Expected End: 03/08/24 Patient will ambulate 300 feet distance using walker with no assistance (Progressing) Start: 02/15/24 Expected End: 03/08/24 Treatment Note: If this is the last documented treatment, then it will signify discharge from acute care prior to discharge from the therapy service and will serve as the discharge summary. Apolinar Garg PTTime in: Start Time: 1512 Time out: Stop Time: 1542 Total time: Time Calculation (min): 30 min OM POLISHER * Lino Calero ATC - 02/20/2024 10:02 AM BOTTOM POLISHER Functional Maintenance Patient Name: Keyur Randall . Room #: E3.321/E3.321 Today's Date: 02/20/2024 ADLs Range of Motion: Range of Motion LUE Range of Motion: Active LLE Range of Motion: Active RUE Range of Motion: Active RLE Range of Motion: Active Mobility: Mobility Highest Level of Mobility Performed (JH-HLM): Bed activity Activity: (ROM) Level of Assistance: Independent Repositioned: Semi Brown's Head of Bed Elevated : HOB 30 Comfort and Environment Interventions: Miscellaneous Devices: Baseline Pain: Post-Treatment Pain: Comments: Bed alarm engaged. Lino Calero ATC OM POLISHER * Riya Lee MD - 02/20/2024 8:42 AM BOTTOM POLISHER CRITICAL CARE MEDICINE PROGRESS NOTE HPI Keyur Randall Sr. is a 68 y.o. male with no known past medical history who presented on 1224 to the hospital with worsening exertional dyspnea, pedal edema, chest pain. Patient admitted to the floor with new onset A-fib and congestive heart failure and was being diuresed. However patient is also alcoholic and started going into withdrawal and got 1 mg of Ativan following which he became drowsy. Subsequent ABG showed hypercarbia and started on noninvasive ventilation and transferred to the ICU 02/16- afebrile, agitated ON and got a dose of Ativan, on BiPAP Still A fib - on amio, on lasix gtt - diuresing well , precedex 0.5 02/17- A fib rate controlled, Amio 0.5, Precedex 1, lasix 10m still on BIPAP, diuresing well , on NIV 50%, intermittent agitation 02/18- off Precedex, Amio 0.5- rate controlled A fib, lasix 5, on Vapotherm /, Afebrile, mentation much improved, more appropriate and somewhat conversant 02/19- not needing PRN phenobarb, went into RVR - digoxin x 1 , on VT /40, mentation improved and now he is conversant, denies any pain, tolerating liquid diet, no coughing spells, not needed any noninvasive ventilation Intake/Output Summary (Last 24 hours) at 02/20/2024 0842 Last data filed at 02/20/2024 0700 Gross per 24 hour Intake 380.97 ml Output 2540 ml Net -2159.03 ml Objective Vital signs in last 24 hours: Temp: [36.9 ?C (98.4 ?F)-37.2 ?C (99 ?F)] 37.1 ?C (98.7 ?F) Heart Rate: [86-154] 86 Resp: [13-28] 15 BP: (101-150)/(56-130) 125/72 FiO2 (%): [25 %-50 %] 50 % PHYSICAL EXAM: General: No distress HEENT: Normocephalic, atraumatic, EOMI, pupils equal and reactive, epistaxis resolved Neck: , supple CV: Rate controlled atrial fibrillation,, irregular, no murmurs, no gallop. Pulm: Coarse BS, no wheezing Abd: Soft, Non tender, non distended, +BS Derm: Normal, no evidence of skin breakdown Ext: Warm, well-perfused, bilateral lower extremity edema improved Neuro: Awake and alert, oriented x 2, following commands, bilateral good handgrip, able to lift legs off the bed CURRENT MEDS amiodarone, 400 mg, Oral, BID digoxin, 125 mcg, Oral, Daily [Held by provider] enoxaparin, 150 mg, Subcutaneous, q12h folic acid 1 mg in sodium chloride 0.9 % 50 mL IVPB, 1 mg, Intravenous, Daily metoprolol tartrate, 25 mg, Oral, q8h GREG multivitamin, 1 tablet, Oral, Daily pantoprazole, 40 mg, Intravenous, q24h GREG thiamine (Vitamin B1) 250 mg in sodium chloride 0.9 % 100 mL IVPB, 250 mg, Intravenous, Daily dexmedeTOMIDine, 0.2-1.5 mcg/kg/hr, Last Rate: Stopped (02/19/24 0549) furosemide, 5 mg/hr, Last Rate: 5 mg/hr (02/20/24 2338) PRN medications: calcium gluconate, dextrose, dextrose, glucagon, LORazepam, magnesium sulfate, melatonin, ondansetron, PHENobarbital, potassium & sodium phosphates OR potassium & sodium phosphates, potassium chloride OR potassium chloride OR potassium chloride OR Potassium chloride, sennosides, [COMPLETED] Insert peripheral IV AND [COMPLETED] Saline lock IV AND sodium chloride, sodium chloride, sodium phosphates 45 mmol in sodium chloride 0.9 % 100 mL IVPB Relevant Imaging and Results Chest [id number] lung volumes and the congestion also improving Sodium 132, bicarb 33, stable renal function, albumin 2.8, WBC count 11.6, hemoglobin stable Assessment & Plan Principal Problem: New onset atrial fibrillation (CMS/HCC) (HCC) Active Problems: Morbid obesity (HCC) BMI 40.0-44.9, adult (HCC) Hypertension Acute respiratory failure with hypoxia and hypercapnia (CMS/HCC) (HCC) Other heart failure (HCC) Alcohol withdrawal delirium, acute, hyperactive (HCC) Acute congestive heart failure Metabolic encephalopathy Alcohol withdrawal Acute hypoxemic hypercarbic respiratory failure Hyperammonemia CHF with reduced EF Possible cirrhosis of the liver Plan Alcohol withdrawal seems to have subsided, not needing any sedatives P.o. thiamine, will recheck ammonia to see if he needs lactulose Stop Lasix drip, switch to IV pushes Continue p.o. Amio, digoxin and a beta-bertha for A-fib Will likely need outpatient sleep study, switch to nasal cannula oxygen, volume expansion protocol Advance to cardiac diet, monitor LFTs, right upper quadrant ultrasound with altered liver echotexture Monitor renal function, electrolytes, replace as appropriate Monitor for any bleeding, transfuse if hemoglobin is less than 7 POC blood glucose checks, watch for hypoglycemia DVT prophylaxis-resume therapeutic dose of Lovenox as epistaxis has resolved GI prophylaxis-not indicated Discussed plan of care with patient's family was at the bedside LOS: 6 days Disposition: Transfer to IMU Riya Lee MD OM POLISHER * Tim Tarango MD - 02/20/2024 7:29 AM BOTTOM POLISHER Images from the original note were not included. [facility] Cardiology [facility] [address] [place] [address] [phone] Cardiology Progress Note PATIENT: Keyur Randall Sr. MR NO: [id number] DATE OF : 1955 Visit Type: Inpatient Follow up Subjective He tells me he is feeling better, he is on nasal cannula oxygen and appears to be significantly more coherent and appropriate in his responses. He is appreciative of the care that he has received so far. OBJECTIVE dexmedeTOMIDine, 0.2-1.5 mcg/kg/hr, Last Rate: Stopped (02/19/24 0549) furosemide, 5 mg/hr, Last Rate: 5 mg/hr (02/20/24 0508) PRN medications: calcium gluconate, dextrose, dextrose, glucagon, LORazepam, magnesium sulfate, melatonin, ondansetron, PHENobarbital, potassium & sodium phosphates OR potassium & sodium phosphates, potassium chloride OR potassium chloride OR potassium chloride OR Potassium chloride, sennosides, [COMPLETED] Insert peripheral IV AND [COMPLETED] Saline lock IV AND sodium chloride, sodium chloride, sodium phosphates 45 mmol in sodium chloride 0.9 % 100 mL IVPB amiodarone, 400 mg, Oral, BID digoxin, 125 mcg, Oral, Daily [Held by provider] enoxaparin, 150 mg, Subcutaneous, q12h folic acid 1 mg in sodium chloride 0.9 % 50 mL IVPB, 1 mg, Intravenous, Daily metoprolol tartrate, 25 mg, Oral, q8h GREG multivitamin, 1 tablet, Oral, Daily pantoprazole, 40 mg, Intravenous, q24h GREG thiamine (Vitamin B1) 250 mg in sodium chloride 0.9 % 100 mL IVPB, 250 mg, Intravenous, Daily ExamBP 125/72 | Pulse 92 | Temp 37.1 ?C (98.7 ?F) (Oral) | Resp 13 | Ht 1.803 m (5' 11") | Wt 134 kg (295 lb 10.2 oz) | BMI 41.23 kg/m? Patient Vitals for the past 24 hrs: BP Temp Temp src Pulse Resp SpO2 Weight 02/20/24 0600 125/72 -- -- 92 13 100 % -- 02/20/24 0513 -- -- -- (!) 105 (!) 23 99 % -- 02/20/24 0500 116/63 -- -- (!) 108 21 98 % 134 kg (295 lb 10.2 oz) 02/20/24 0408 -- -- -- 96 22 99 % -- 02/20/24 0400 122/63 37.1 ?C (98.7 ?F) Oral (!) 111 22 98 % -- 02/20/24 0300 120/61 -- -- (!) 101 (!) 23 98 % -- 02/20/24 0200 134/73 -- -- (!) 107 22 96 % -- 02/20/24 0100 (!) 120/56 -- -- 97 19 95 % -- 02/20/24 0000 (!) 125/59 37.2 ?C (99 ?F) Oral 96 20 98 % -- 02/19/24 2315 -- -- -- 96 18 99 % -- 02/19/24 2300 123/67 -- -- 100 20 98 % -- 02/19/24 2200 125/67 -- -- (!) 118 20 99 % -- 02/19/24 2100 101/87 -- -- (!) 132 22 99 % -- 02/19/242034 -- -- -- (!) 143 (!) 23 100 % -- 02/19/241999 (!) 150/130 36.9 ?C (98.5 ?F) Oral (!) 131 19 98 % -- 02/19/24 1900 121/67 -- -- (!) 123 18 96 % -- 02/19/24 1600 -- 37.2 ?C (99 ?F) Oral -- -- -- -- 02/19/24 1556 -- -- -- (!) 144 -- -- -- 02/19/24 1526 -- -- -- (!) 154 (!) 27 97 % -- 02/19/24 1202 -- -- -- (!) 122 (!) 28 96 % -- 02/19/24 1200 -- 36.9 ?C (98.4 ?F) Oral -- -- -- -- 02/19/24 0813 -- -- -- 85 17 98 % -- 02/19/24 0800 -- 36.6 ?C (97.8 ?F) Oral -- -- -- -- General: He is very somnolent while on nasal cannula oxygen and barelyarousable Respiratory: Lungs are clear to auscultation Cardiovascular exam: Irregularly irregular Gastrointestinal: Soft, non-tender, normal bowel sounds. Vascular/Lymphatics: Diminished bilateral lower extremity distal pulses, 1+ bilateral lower extremity edema. Neurologic: He is somnolent and while he is able to move his extremities, he is barely arousable I/O last 3 completed shifts:In: 566.3 (4.2 mL/kg) [I.V.:566.3 (4.2 mL/kg)] Out: 3675 (27.4 mL/kg) [Urine:3675 (0.8 mL/kg/hr)] Weight: 134.1 kg Diagnostic ResultsTelemetry: Atrial fibrillation with a ventricular rate in the 90s Lab ResultsComponent Value Date Sodium Lvl 132 (L) 02/20/2024 Potassium Lvl 3.5 02/20/2024 Chloride Lvl 92 (L) 02/20/2024 CO2 Lvl 33.3 (H) 02/20/2024 Magnesium 2.41 02/20/2024 Lab ResultsComponent Value Date Creatinine Lvl 0.87 02/20/2024 Estimated Creatinine Clearance: 115.1 mL/min (by C-G formula based on SCr of0.87 mg/dL). Lab Results Component Value Date ALT 10 02/20/2024 AST 22 02/20/2024 Alkaline Phosphatase 102 02/20/2024 Bilirubin Total 3.10 (H) 02/20/2024 Lab ResultsComponent Value Date HS Troponin I 1 Hour 10 02/14/2024 HS Troponin I 0 to 1 Hour Delta 2 02/14/2024 HS Troponin I Baseline 8 02/14/2024 Recent Labs:Diagnostic Results Chemistries and Metabolic Panel Results from last 7 days Lab Units 02/20/24 0510 02/19/24 1444 02/19/24 0327 02/18/24 0055 02/17/24 0326 02/16/24 0745 SODIUM mEq/L 132* 133* 132* < > 136 135* POTASSIUM mEq/L 3.5 3.4 3.6 < > 4.0 5.1* CO2 mEq/L 33.3* 35.6* 38.4* < > >40.0* 37.5* CHLORIDE mEq/L 92* 89* 88* < > 89* 92* CALCIUM mg/dL 8.5 8.6 8.5 < > 8.4 8.3 BUN mg/dL 14 19 19 < > 12 16 CREATININE mg/dL 0.87 0.91 0.98 < > 0.96 0.86 MAGNESIUM mg/dL 2.41 2.13 2.09 < > 1.99 2.15 ALT U/L 10 -- -- -- 13 19 < > = values in this interval not displayed. CBCResults from last 7 days Lab Units 02/20/24 0510 02/19/24 0327 02/18/24 0055 HEMOGLOBIN g/dL 16.0 15.7 15.3 HEMATOCRIT % 48.4 48.1 47.0 WBC 10*3/uL 11.62* 11.78* 12.15* PLATELETS 10*3/uL 153* 134* 139* Cardiac Labs:Results from last 7 days Lab Units 02/14/24 2146 02/14/24 2035 CREATINE KINASE U/L -- 119 TROPONIN I, HIGH SENSITIVITY, 1 HR pg/mL 10 -- TROPONIN I, HIGH SENSITIVITY, 0 TO 1HR 2 -- TROPONIN I, HIGH SENSITIVITY, BASELINE pg/mL -- 8 BNP pg/mL -- 257* I have personally review imaging, labs and other provider notes for today. Assessment: Hypercapnic respiratory failure.New onset of atrial fibrillation with rapid ventricular response. 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 Moderate to severe aortic stenosis. Morbid obesity. Likely obstructive sleep apnea. Malignant hypertension. Alcohol withdrawal. PLANMr. Randall is a 68-year-old man with the above medical problems who is now fully coherent and appropriate. He had developed significant rapid ventricular response to his atrial fibrillation yesterday and through adjustments of his medications, this morning his ventricular rate is in the 90s. He will likely have tachycardias again once he attempts to become more active. We will have to see how his blood pressure behaves and further adjust his medications. In the meantime, I will start him on oral digoxin along with his amiodarone and metoprolol. Tim Tarango M.D. Cardiology [facility] , OM POLISHER * Jose Alfredo Kan, PT - 02/19/2024 3:27 PM BOTTOM POLISHER Encounter Note Patient Name: Keyur Randall Sr. Today's Date: 02/19/2024 Missed Treatment Time and Reason Attempted to see pt three times today: 1st attempt: 12:51 pm Pt sleeping. Daughter at bedside stated pt brushed his teeth and just fell sleep because pt stated he is tired. Will try again later this afternoon. 2nd attempt: 14:27 pm Doreen in the room drawing blood and doing swallow eval. 3rd attempt: Pt is tachycardic with HR in the 120s to 150s while laying in bed. Deferred PT today and will follow up again tomorrow. Doreen RN is made aware. Jose Alfredo Kan, PT OM POLISHER * HEMA Watkins - 02/19/2024 9:36 AM BOTTOM POLISHER Treatment Session Note Patient Name: Keyur Randall Sr. Today's Date: 02/19/2024 Pt seen in room: E3.321/E3.321 Preferred Language: Ecuad[place] Assessment & Plan Assessment: Pt appears to be making slow progress towards OT Tx goals evident by fxnl activity tolerance. This session Pt improves with attempts for self grooming, is limited in ROM of BUEs 2/2 appearance of swelling and generalized deconditioning which impacts fxnl performance. Pt also remains limited by fatigue req tactile cues to maintain fxnl arousal. Will cont to benefit from skilled OT services in order to maximize confucianist of IND with ADLs improving QOL and reducing need for caregiver assistance. Plan: Treatment Plan/Goals Established with Patient/Caregiver: Yes Treatment Interventions: ADL retraining, Functional transfer training, UE strengthening/ROM, Visual perceptual retraining OT Plan: Skilled OT OT Frequency: 3-5 times per week until discharge OT Discharge Recommendations: Home Health OT OT Planned Treatments: Activities of Daily Living, Balance training, Energy conservation training, Therapeutic exercises, Therapeutic activities OT Duration: 1-2 weeks Therapy discharge recommendations are made by determining the patient's prior level of function, assessing current function level and establishing rehab potential. The overall discharge plan may be affected by input from Physicians, Care Coordination, medical condition/status, family support and insurance benefits. Subjective Chart review complete, RN clears Pt for Tx session. Upon meeting Pt is semi-brown with ICU monitor, IV, hoang, and On Vapotherm @ 20 L Fio2 40 %, family present at bedside. Pt states "It is so hard for me to take care of myself right now." At session end, Pt remains semi-brown with alarm engaged, all lines/leads intact, call light within reach, needs met at this time. RN updated. Pain: Pain Assessment Pain Assessment: DVPRS Pain Score: 4 Pain Type: Acute pain Pain Location: Generalized Response to Interventions: RN notified and aware. Objective Vital Signs: VVS, Pt appears to be in no apparent signs of distress. HR in low 100's at rest, 110's with activity. General Visit Information: Family/Caregiver Present: Yes Others Present: Velvet Phel[employer] Self Care (ADL): Self Care/Home Management (ADLs) Time Entry: 11 Grooming Assistance: Partial/Mod assistance Grooming Deficit: Setup, Verbal cueing, Increased time to complete, Wash/dry face ADL Comments: Pt met semi-brown, for grooming req MOD A for cleansing face. 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 Pt follows vc's for elbow and hip flexion/extention of BLEs. Family educated on PROM HEP and confirm understanding. AM-PAC Daily Activity: Putting on and taking off regular lower body clothing: Total Bathing (including washing, rinsing, drying): A Lot Toileting, which includes using toilet, bedpan or urinal: Total Putting on and taking off regular upper body clothing: A Lot Taking care of personal grooming such as brushing teeth: A Lot Eating Meals: A Lot AM-PAC Daily Activity Raw Score: 10 Mobility Highest Level of Mobility Performed (JH-HLM): Bed activity Patient Education: Education Documentation Home Exercise Program, taught by HEMA Watkins at 02/19/2024 9:36 AM. Learner: Family, Patient Readiness: Acceptance Method: Explanation, Demonstration Response: Verbalizes Understanding ADL Training, taught by HEMA Watkins at 02/19/2024 9:36 AM. Learner: Family, Patient Readiness: Acceptance Method: Explanation, Demonstration Response: Verbalizes Understanding Occupational Therapy Plan of Care, taught by HEMA Watkins at 02/19/2024 9:36 AM. Learner: Family, Patient Readiness: Acceptance Method: Explanation, Demonstration Response: Verbalizes Understanding Education Comments No comments found. Goals: Encounter Goals Encounter Goals (Active) Patient will complete grooming standing at the sink with supvn (Progressing) Start: 02/15/24 Expected End: 02/29/24 Patient will complete dressing with supvn Start: 02/15/24 Expected End: 02/29/24 Patient will complete toilet transfer with supvn Start: 02/15/24 Expected End: 02/29/24 Supervising Occupational Therapist: Zeke Morgan OT Treatment Note: If this is the last documented treatment, then it will signify discharge from acute care prior to discharge from the therapy service and will serve as the discharge summary. Swetha Watkinsectronically signed by HEMA Watkins at 02/19/2024 2:42 PM BOTTOM POLISHER * Riya Lee MD - 02/19/2024 8:38 AM BOTTOM POLISHER CRITICAL CARE MEDICINE PROGRESS NOTE HPI Keyur Randall Sr. is a 68 y.o. male with no known past medical history who presented on 1224 to the hospital with worsening exertional dyspnea, pedal edema, chest pain. Patient admitted to the floor with new onset A-fib and congestive heart failure and was being diuresed. However patient is also alcoholic and started going into withdrawal and got 1 mg of Ativan following which he became drowsy. Subsequent ABG showed hypercarbia and started on noninvasive ventilation and transferred to the ICU 02/16- afebrile, agitated ON and got a dose of Ativan, on BiPAP Still A fib - on amio, on lasix gtt - diuresing well , precedex 0.5 02/17- A fib rate controlled, Amio 0.5, Precedex 1, lasix 10m still on BIPAP, diuresing well , on NIV 50%, intermittent agitation 02/18- off Precedex, Amio 0.5- rate controlled A fib, lasix 5, on Vapotherm 20/40, Afebrile, mentation much improved, more appropriate and somewhat conversant Intake/Output Summary (Last 24 hours) at 02/19/2024 0838 Last data filed at 02/19/2024 0700 Gross per 24 hour Intake 602.05 ml Output 3325 ml Net -2722.95 ml Objective Vital signs in last 24 hours: Temp: [36.9 ?C (98.5 ?F)-37.2 ?C (99 ?F)] 36.9 ?C (98.5 ?F) Heart Rate: [77-128] 85 Resp: [13-25] 17 BP: (88-148)/(51-123) 111/56 FiO2 (%): [45 %-65 %] 45 % PHYSICAL EXAM: General: In mild distress HEENT: Normocephalic, atraumatic, no gaze preference, pupils equal and reactive, having some mild epistaxis Neck: , supple CV: Rate controlled atrial fibrillation,, irregular, no murmurs, no gallop. Pulm: Coarse BS, no wheezing Abd: Soft, Non tender, non distended, +BS Derm: Normal, no evidence of skin breakdown Ext: Warm, well-perfused, bilateral lower extremity edema Neuro: Drowsy but easily wakes up to voice, more coherent, follows some commands CURRENT MEDS enoxaparin, 150 mg, Subcutaneous, q12h folic acid 1 mg in sodium chloride 0.9 % 50 mL IVPB, 1 mg, Intravenous, Daily metoprolol tartrate, 5 mg, Intravenous, q6h GREG multivitamin, 1 tablet, Oral, Daily pantoprazole, 40 mg, Intravenous, q24h GREG thiamine (Vitamin B1) 250 mg in sodium chloride 0.9 % 100 mL IVPB, 250 mg, Intravenous, Daily amiodarone, 0.5 mg/min, Last Rate: 0.5 mg/min (02/19/24 0415) dexmedeTOMIDine, 0.2-1.5 mcg/kg/hr, Last Rate: Stopped (02/19/24 0549) furosemide, 5 mg/hr, Last Rate: 5 mg/hr (02/19/24 0815) PRN medications: calcium gluconate, dextrose, dextrose, glucagon, LORazepam, magnesium sulfate, melatonin, ondansetron, PHENobarbital, potassium & sodium phosphates OR potassium & sodium phosphates, potassium chloride OR potassium chloride OR potassium chloride OR Potassium chloride, sennosides, [COMPLETED] Insert peripheral IV AND [COMPLETED] Saline lock IV AND sodium chloride, sodium phosphates 45 mmol in sodium chloride 0.9 % 100 mL IVPB Relevant Imaging and Results Chest [id number] lung volumes and the congestion also improving Sodium 132, stable renal function but BUN slowly uptrending, bicarb improved to 38, mild leukocytosis, stable hemoglobin Assessment & Plan Principal Problem: New onset atrial fibrillation (CMS/HCC) (HCC) Active Problems: Morbid obesity (HCC) BMI 40.0-44.9, adult (HCC) Hypertension Acute respiratory failure with hypoxia and hypercapnia (CMS/HCC) (HCC) Other heart failure (HCC) Alcohol withdrawal delirium, acute, hyperactive (HCC) Acute congestive heart failure Metabolic encephalopathy Alcohol withdrawal Acute hypoxemic hypercarbic respiratory failure Hyperammonemia CHF with reduced EF Possible cirrhosis of the liver Plan Continue on low-dose Precedex if needed for agitation, patient seems to be very sensitive to benzodiazepines, continue on as needed phenobarbital IV thiamine, unable to do lactulose as patient is not cooperative, enemas would likely be difficult as well in the setting of significant respiratory distress, will start when patient is able to take p.o. optimize volume status, continue Lasix drip at 5, bicarb high in the setting of diuresis as well as mostly from chronic hypercarbia, continue on amio for rate control Continue noninvasive ventilation if needed, wean Vapotherm as able, will repeat ABG N.p.o. for now, will try bedside swallow, monitor LFTs, right upper quadrant ultrasound with altered liver echotexture Monitor renal function, electrolytes, replace as appropriate Monitor for any bleeding, transfuse if hemoglobin is less than 7 POC blood glucose checks, watch for hypoglycemia DVT prophylaxis-we will hold Lovenox for now as patient is having epistaxis and unable to wear BiPAP GI prophylaxis-not indicated Discussed plan of care with patient's family was at the bedside Critical Care Time: I spent 40 minutes providing direct critical care to this patient. (Excludes time performing procedures) LOS: 5 days Disposition: Riya Lee MD OM POLISHER * Tim Tarango MD - 02/19/2024 7:38 AM BOTTOM POLISHER Images from the original note were not included. [facility] Cardiology [facility] [address], [address] [place] [address] [phone] Cardiology Progress Note PATIENT: Keyur Randall Sr. MR NO: [id number] DATE OF : 1955 Visit Type: Inpatient Follow up Subjective He is more awake today, his son is in the room and the patient and I as well as his son and I had a conversation regarding his present status and the near term plans of care. He would likely have a swallowing evaluation and if he cannot swallow, we will switch him from IV Lasix and IV amiodarone as well as IV metoprolol to the oral form of these medications and I have explained this to him and his son. OBJECTIVE amiodarone, 0.5 mg/min, Last Rate: 0.5 mg/min (02/19/24 0415) dexmedeTOMIDine, 0.2-1.5 mcg/kg/hr, Last Rate: Stopped (02/19/24 0549) furosemide, 5 mg/hr, Last Rate: 5 mg/hr (02/18/24 2300) PRN medications: calcium gluconate, dextrose, dextrose, glucagon, LORazepam, magnesium sulfate, melatonin, ondansetron, PHENobarbital, potassium & sodium phosphates OR potassium & sodium phosphates, potassium chloride OR potassium chloride OR potassium chloride OR Potassium chloride, sennosides, [COMPLETED] Insert peripheral IV AND [COMPLETED] Saline lock IV AND sodium chloride, sodium phosphates 45 mmol in sodium chloride 0.9 % 100 mL IVPB enoxaparin, 150 mg, Subcutaneous, q12h folic acid 1 mg in sodium chloride 0.9 % 50 mL IVPB, 1 mg, Intravenous, Daily metoprolol tartrate, 5 mg, Intravenous, q6h GREG multivitamin, 1 tablet, Oral, Daily pantoprazole, 40 mg, Intravenous, q24h GREG thiamine (Vitamin B1) 250 mg in sodium chloride 0.9 % 100 mL IVPB, 250 mg, Intravenous, Daily ExamBP (!) 111/56 | Pulse 91 | Temp 36.9 ?C (98.5 ?F) (Oral) | Resp (!) 24 | Ht 1.803 m (5' 11") | Wt (!) 139 kg (306 lb 3.5 oz) | BMI 42.71 kg/m? Patient Vitals for the past 24 hrs: BP Temp Temp src Pulse Resp SpO2 02/19/24 0400 (!) 111/56 36.9 ?C (98.5 ?F) Oral 91 (!) 24 97 % 02/19/24 0300 (!) 92/56 -- -- 77 22 95 % 02/19/24 0200 105/63 -- -- 86 19 99 % 02/19/24 0100 96/60 -- -- 97 19 100 % 02/19/24 0045 103/64 -- -- 86 20 99 % 02/19/24 0030 (!) 88/53 -- -- 87 19 94 % 02/19/24 0000 (!) 100/59 37.2 ?C (98.9 ?F) Oral 91 19 100 % 02/18/24 2345 (!) 101/51 -- -- 91 18 99 % 02/18/24 2315 (!) 98/53 -- -- (!) 101 19 100 % 02/18/24 2300 (!) 98/54 -- -- 90 18 99 % 02/18/24 2230 -- -- -- 88 20 100 % 02/18/245 -- -- -- (!) 101 19 100 % 02/18/24 2200 (!) 93/54 -- -- 98 19 100 % 02/18/242144 -- -- -- (!) 108 21 99 % 02/18/242129 -- -- -- (!) 118 19 90 % 02/18/242114 -- -- -- (!) 118 16 94 % 02/18/24 2100 116/78 -- -- (!) 126 22 93 % 02/18/241999 116/75 37.1 ?C (98.7 ?F) Oral (!) 127 (!) 25 96 % 02/18/24 1900 97/79 -- -- (!) 119 (!) 25 98 % 02/18/24 1826 111/72 -- -- (!) 128 22 100 % 02/18/24 1800 111/72 -- -- (!) 126 21 98 % 02/18/24 1700 134/80 -- -- (!) 116 22 -- 02/18/24 1609 -- -- -- (!) 104 15 97 % 02/18/24 1600 111/64 -- -- -- -- -- 02/18/24 1505 101/72 37.2 ?C (99 ?F) Axillary 92 19 -- 02/18/24 1400 (!) 148/123 -- -- -- 19 -- 02/18/24 1328 140/74 -- -- 92 (!) 25 100 % 02/18/24 1300 132/64 -- -- -- 22 -- 02/18/24 1206 -- -- -- 91 13 100 % 02/18/24 1200 104/69 -- -- -- 15 -- 02/18/24 1100 99/64 -- -- 99 17 99 % 02/18/24 1000 -- -- -- 96 22 100 % 02/18/24 0900 (!) 114/53 -- -- 92 (!) 24 99 % 02/18/24 0800 119/68 -- -- 86 21 -- General: He is very somnolent while on nasal cannula oxygen and barelyarousable Respiratory: Lungs are clear to auscultation Cardiovascular exam: Irregularly irregular and tachycardic Gastrointestinal: Soft, non-tender, normal bowel sounds. Vascular/Lymphatics: Diminished bilateral lower extremity distal pulses, 1+ bilateral lower extremity edema. Neurologic: He is somnolent and while he is able to move his extremities, he is barely arousable I/O last 3 completed shifts:In: 2609 (18.8 mL/kg) [I.V.:2609 (18.8 mL/kg)] Out: 6600 (47.5 mL/kg) [Urine:6600 (1.3 mL/kg/hr)] Weight: 138.9 kg Diagnostic ResultsTelemetry: Atrial fibrillation with a ventricular rate in the 70s Lab ResultsComponent Value Date Sodium Lvl 132 (L) 02/19/2024 Potassium Lvl 3.6 02/19/2024 Chloride Lvl 88 (L) 02/19/2024 CO2 Lvl 38.4 (H) 02/19/2024 Magnesium 2.09 02/19/2024 Lab ResultsComponent Value Date Creatinine Lvl 0.98 02/19/2024 Estimated Creatinine Clearance: 104.5 mL/min (by C-G formula based on SCr of0.98 mg/dL). Lab Results Component Value Date ALT 13 02/17/2024 AST 17 02/17/2024 Alkaline Phosphatase 107 02/17/2024 Bilirubin Total 2.10 (H) 02/17/2024 Lab ResultsComponent Value Date HS Troponin I 1 Hour 10 02/14/2024 HS Troponin I 0 to 1 Hour Delta 2 02/14/2024 HS Troponin I Baseline 8 02/14/2024 Recent Labs:Diagnostic Results Chemistries and Metabolic Panel Results from last 7 days Lab Units 02/19/24 0327 02/18/24 1432 02/18/24 0055 02/17/24 0326 02/16/24 0745 SODIUM mEq/L 132* 133* 134* 136 135* POTASSIUM mEq/L 3.6 3.2* 3.8 4.0 5.1* CO2 mEq/L 38.4* >40.0* >40.0* >40.0* 37.5* CHLORIDE mEq/L 88* 84* 84* 89* 92* CALCIUM mg/dL 8.5 8.6 8.1* 8.4 8.3 BUN mg/dL 19 16 13 12 16 CREATININE mg/dL 0.98 0.92 0.85 0.96 0.86 MAGNESIUM mg/dL 2.09 2.07 2.03 1.99 2.15 ALT U/L -- -- -- 13 19 CBCResults from last 7 days Lab Units 02/19/24 0327 02/18/24 0055 02/17/24 0326 HEMOGLOBIN g/dL 15.7 15.3 15.1 HEMATOCRIT % 48.1 47.0 47.4 WBC 10*3/uL 11.78* 12.15* 8.69 PLATELETS 10*3/uL 134* 139* 138* Cardiac Labs:Results from last 7 days Lab Units 02/14/24 2146 02/14/242034 CREATINE KINASE U/L -- 119 TROPONIN I, HIGH SENSITIVITY, 1 HR pg/mL 10 -- TROPONIN I, HIGH SENSITIVITY, 0 TO 1HR 2 -- TROPONIN I, HIGH SENSITIVITY, BASELINE pg/mL -- 8 BNP pg/mL -- 257* I have personally review imaging, labs and other provider notes for today. Assessment: Hypercapnic respiratory failure.New onset of atrial fibrillation with rapid ventricular response. 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 Moderate to severe aortic stenosis. Morbid obesity. Likely obstructive sleep apnea. Malignant hypertension. Alcohol withdrawal. PLANMr. Randall is a 68-year-old man with the above medical problems who is more awake and alert this morning, he did not have any significant event over the weekend, albeit he has not really eaten much and that has not been a swallowing study. I am told he will have his swallowing study today and we will decide whether he can take oral medications and sustenance, or not. He remains critically ill at this point. We will continue to follow. Tim Tarango M.D.Cardiology [facility] , OM POLISHER * Wei Appiah MD - 02/18/2024 11:26 AM BOTTOM POLISHER Images from the original note were not included. [facility] Cardiology [facility] [address] [place] [address] [phone] Cardiology Progress Note PATIENT: Keyur Randall . MR NO: [id number] DATE OF : 1955 Visit Type: Inpatient Follow up Subjective He remains somnolent and not easily arousable this morning. He was agitated overnight. He is still on BiPap in the ICU. He does have 2 granddaughters in the room with him and his daughter is there as well. They tell me he lives independently in [place], [place] and is typically functional and mentates normally. OBJECTIVE amiodarone, 0.5 mg/min, Last Rate: 0.5 mg/min (02/18/24 0659) dexmedeTOMIDine, 0.2-1.5 mcg/kg/hr, Last Rate: 1 mcg/kg/hr (02/18/24 0824) furosemide, 5 mg/hr, Last Rate: 5 mg/hr (02/18/24 1053) PRN medications: calcium gluconate, dextrose, dextrose, glucagon, LORazepam, magnesium sulfate, melatonin, ondansetron, PHENobarbital, potassium & sodium phosphates OR potassium & sodium phosphates, potassium chloride OR potassium chloride OR potassium chloride OR Potassium chloride, sennosides, [COMPLETED] Insert peripheral IV AND [COMPLETED] Saline lock IV AND sodium chloride, sodium chloride, sodium phosphates 45 mmol in sodium chloride 0.9 % 100 mL IVPB enoxaparin, 150 mg, Subcutaneous, q12h folic acid 1 mg in sodium chloride 0.9 % 50 mL IVPB, 1 mg, Intravenous, Daily metoprolol tartrate, 5 mg, Intravenous, q6h GREG multivitamin, 1 tablet, Oral, Daily sodium chloride, , , thiamine (Vitamin B1) 250 mg in sodium chloride 0.9 % 100 mL IVPB, 250 mg, Intravenous, Daily ExamBP 99/64 | Pulse 99 | Temp 37.1 ?C (98.8 ?F) | Resp 17 | Ht 1.803 m (5' 11") | Wt (!) 139 kg (306 lb 3.5 oz) | BMI 42.71 kg/m? Patient Vitals for the past 24 hrs: BP Temp Temp src Pulse Resp SpO2 Weight 02/18/24 1100 99/64 -- -- 99 17 -- -- 02/18/24 1000 -- -- -- 96 22 -- -- 02/18/24 0900 (!) 114/53 -- -- 92 (!) 24 -- -- 02/18/24 0800 119/68 -- -- 86 21 -- -- 02/18/24 0726 -- -- -- 81 17 99 % -- 02/18/24 0700 112/69 -- -- 86 (!) 25 100 % -- 02/18/24 0600 113/80 -- -- 92 18 -- -- 02/18/24 0500 (!) 121/59 -- -- 91 18 98 % (!) 139 kg (306 lb 3.5 oz) 02/18/24 0400 127/80 37.1 ?C (98.8 ?F) -- 86 22 98 % -- 02/18/24 0300 109/69 -- -- 86 17 99 % -- 02/18/24 0200 119/70 -- -- 89 21 100 % -- 02/18/24 0100 96/65 -- -- 82 18 100 % -- 02/18/24 0030 108/60 -- -- 84 15 99 % -- 02/18/24 0000 121/71 -- -- 84 12 99 % -- 02/17/24 2339 110/68 -- -- 98 -- -- -- 02/17/24 2300 (!) 97/56 -- -- 86 21 100 % -- 02/17/24 2200 113/66 -- -- 89 21 99 % -- 02/17/24 2100 108/86 -- -- 93 18 100 % -- 02/17/241999 (!) 101/59 36.7 ?C (98.1 ?F) Axillary 85 20 98 % -- 02/17/241923 -- -- -- 86 21 99 % -- General: He is somnolent while on BiPap and intermittently agitatedRespiratory: Coarse BS Cardiovascular exam: JVP difficult to assess 2/2 body habitus. Irregularly irregular. NAYELY II/ at RUSB. Gastrointestinal: Soft, non-tender, normal bowel sounds. Vascular/Lymphatics: Diminished bilateral lower extremity distal pulses, 1+ bilateral lower extremity edema. Neurologic: He is somnolent and while he is able to move his extremities I/O last 3 completed shifts:In: 2006 (14.4 mL/kg) [I.V.:2006 (14.4 mL/kg)] Out: 6899 (49.7 mL/kg) [Urine:6900 (1.4 mL/kg/hr)] Weight: 138.9 kg Diagnostic ResultsTelemetry: Atrial fibrillation with a ventricular rate that is much improved Lab Results Component Value Date Sodium Lvl 134 (L) 02/18/2024 Potassium Lvl 3.8 02/18/2024 Chloride Lvl 84 (L) 02/18/2024 CO2 Lvl >40.0 (HH) 02/18/2024 Magnesium 2.03 02/18/2024 Lab ResultsComponent Value Date Creatinine Lvl 0.85 02/18/2024 Estimated Creatinine Clearance: 120.5 mL/min (by C-G formula based on SCr of0.85 mg/dL). Lab Results Component Value Date ALT 13 02/17/2024 AST 17 02/17/2024 Alkaline Phosphatase 107 02/17/2024 Bilirubin Total 2.10 (H) 02/17/2024 Lab ResultsComponent Value Date HS Troponin I 1 Hour 10 02/14/2024 HS Troponin I 0 to 1 Hour Delta 2 02/14/2024 HS Troponin I Baseline 8 02/14/2024 Recent Labs:Diagnostic Results Chemistries and Metabolic Panel Results from last 7 days Lab Units 02/18/24 0055 02/17/24 0326 02/16/24 0745 SODIUM mEq/L 134* 136 135* POTASSIUM mEq/L 3.8 4.0 5.1* CO2 mEq/L >40.0* >40.0* 37.5* CHLORIDE mEq/L 84* 89* 92* CALCIUM mg/dL 8.1* 8.4 8.3 BUN mg/dL 13 12 16 CREATININE mg/dL 0.85 0.96 0.86 MAGNESIUM mg/dL 2.03 1.99 2.15 ALT U/L -- 13 19 CBCResults from last 7 days Lab Units 02/18/24 0055 02/17/24 0326 02/16/24 0745 HEMOGLOBIN g/dL 15.3 15.1 14.7 HEMATOCRIT % 47.0 47.4 45.8 WBC 10*3/uL 12.15* 8.69 8.75 PLATELETS 10*3/uL 139* 138* 160 Cardiac Labs:Results from last 7 days Lab Units 02/14/24 2146 02/14/242034 CREATINE KINASE U/L -- 119 TROPONIN I, HIGH SENSITIVITY, 1 HR pg/mL 10 -- TROPONIN I, HIGH SENSITIVITY, 0 TO 1HR 2 -- TROPONIN I, HIGH SENSITIVITY, BASELINE pg/mL -- 8 BNP pg/mL -- 257* I have personally review imaging, labs and other provider notes for today. Assessment: Hypercapnic respiratory failure.Newly diagnosed atrial fibrillation with rapid ventricular response. 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 Aortic stenosis, likely severe. Morbid obesity. Likely obstructive sleep apnea. Malignant hypertension. PLANMr. Randall is a 68-year-old man with the above medical problems who has been transferred to the intensive care unit and remains on BiPAP for support of his ventilation mainly. Continue with IV medications for now and once he is capable of taking medications orally, will return him to oral medications (GDMT). He does have significant aortic stenosis visually but gradients are not significantly elevated by echo, likely underestimated. He can be evaluated for underlying ischemic heart disease and severity of aortic valve stenosis as he recovers from hypercapnic respiratory failure. Recs- c/w Lasix gtt - will again provide acetazolamide IV x 1 now - c/w therapeutic Lovenox as long as renal function stable and no evidence of bleeding - will continue to follow closely. - please call with any new questions or concerns Wei Appiah M.D. [facility] , OM POLISHER * Riya Lee MD - 02/18/2024 9:11 AM BOTTOM POLISHER CRITICAL CARE MEDICINE PROGRESS NOTE HPI Keyur Randall Sr. is a 68 y.o. male with no known past medical history who presented on 1224 to the hospital with worsening exertional dyspnea, pedal edema, chest pain. Patient admitted to the floor with new onset A-fib and congestive heart failure and was being diuresed. However patient is also alcoholic and started going into withdrawal and got 1 mg of Ativan following which he became drowsy. Subsequent ABG showed hypercarbia and started on noninvasive ventilation and transferred to the ICU 02/16- afebrile, agitated ON and got a dose of Ativan, on BiPAP Still A fib - on amio, on lasix gtt - diuresing well , precedex 0.5 02/17- A fib rate controlled, Amio 0.5, Precedex 1, lasix 10m still on BIPAP, diuresing well , on NIV 50%, intermittent agitation Intake/Output Summary (Last 24 hours) at 02/18/2024 0911 Last data filed at 02/18/2024 0800 Gross per 24 hour Intake 2006.95 ml Output 4850 ml Net -2843.05 ml Objective Vital signs in last 24 hours: Temp: [36.7 ?C (98.1 ?F)-37.1 ?C (98.8 ?F)] 37.1 ?C (98.8 ?F) Heart Rate: [81-98] 86 Resp: [12-25] 21 BP: (96-127)/(56-86) 119/68 FiO2 (%): [20 %-50 %] 20 % PHYSICAL EXAM: General: In mild distress HEENT: Normocephalic, atraumatic, no gaze preference, pupils equal and reactive Neck: , supple CV: Tachycardic, irregular, no murmurs, no gallop. Pulm:Coarse BS, no wheezing Abd: Soft, Non tender, non distended, +BS Derm: Normal, no evidence of skin breakdown Ext: Warm, well-perfused, bilateral lower extremity edema Neuro: Drowsy, protecting airway, responds to painful stimulus CURRENT MEDS enoxaparin, 150 mg, Subcutaneous, q12h folic acid 1 mg in sodium chloride 0.9 % 50 mL IVPB, 1 mg, Intravenous, Daily metoprolol tartrate, 5 mg, Intravenous, q6h GREG multivitamin, 1 tablet, Oral, Daily sodium chloride, , , thiamine (Vitamin B1) 250 mg in sodium chloride 0.9 % 100 mL IVPB, 250 mg, Intravenous, Daily amiodarone, 0.5 mg/min, Last Rate: 0.5 mg/min (02/18/24658) dexmedeTOMIDine, 0.2-1.5 mcg/kg/hr, Last Rate: 1 mcg/kg/hr (02/18/24823) furosemide, 10 mg/hr, Last Rate: 10 mg/hr (02/18/24658) PRN medications: calcium gluconate, dextrose, dextrose, glucagon, LORazepam, magnesium sulfate, melatonin, ondansetron, potassium & sodium phosphates OR potassium & sodium phosphates, potassium chloride OR potassium chloride OR potassium chloride OR Potassium chloride, sennosides, [COMPLETED] Insert peripheral IV AND [COMPLETED] Saline lock IV AND sodium chloride, sodium chloride, sodium phosphates 45 mmol in sodium chloride 0.9 % 100 mL IVPB Relevant Imaging and Results Chest [id number] lung volumes and the congestion also improving Sodium 134, bicarb more than 40, stable renal function, mild leukocytosis 12.5, hemoglobin stable at 15, platelet count stable at 139 Assessment & Plan Principal Problem: New onset atrial fibrillation (CMS/HCC) (HCC) Active Problems: Morbid obesity (HCC) BMI 40.0-44.9, adult (HCC) Hypertension Acute respiratory failure with hypoxia and hypercapnia (CMS/HCC) (HCC) Other heart failure (HCC) Alcohol withdrawal delirium, acute, hyperactive (HCC) Acute congestive heart failure Metabolic encephalopathy Alcohol withdrawal Acute hypoxemic hypercarbic respiratory failure Hyperammonemia CHF with reduced EF Possible cirrhosis of the liver Plan Continue on low-dose Precedex if needed for agitation, patient seems to be very sensitive to benzodiazepines, will start on phenobarbital IV thiamine, unable to do lactulose as patient is not cooperative, enemas would likely be difficult as well in the setting of significant respiratory distress, will start when patient is able to take p.o. optimize volume status, continue Lasix drip-will decrease rate, bicarb high in the setting of diuresis as well as mostly from chronic hypercarbia, received a dose of Diamox, continue on amio for rate control Beta-bertha per cardiology, has hold parameters Continue noninvasive ventilation, will repeat ABG N.p.o. for now, monitor LFTs, right upper quadrant ultrasound pending Monitor renal function, electrolytes, replace as appropriate Monitor for any bleeding, transfuse if hemoglobin is less than 7 POC blood glucose checks, watch for hypoglycemia DVT prophylaxis-on therapeutic dose of Lovenox GI prophylaxis-not indicated Discussed plan of care with patient's family was at the bedside Critical Care Time: I spent 36 minutes providing direct critical care to this patient. (Excludes time performing procedures) LOS: 4 days Disposition: Riya Lee MD OM POLISHER * Wei Appiah MD - 02/17/2024 9:38 AM BOTTOM POLISHER Images from the original note were not included. [facility] Cardiology [facility] [address] [place] [address] [phone] Cardiology Progress Note PATIENT: Keyur Randall Sr. MR NO: [id number] DATE OF : 1955 Visit Type: Inpatient Follow up Subjective He remains somnolent and not easily arousable this morning. He is still on BiPap in the ICU. He does have 2 granddaughters in the room with him and his daughter is there as well. They tell me he lives independently in [place], [place] and is typically functional and mentates normally. OBJECTIVE amiodarone, 0.5 mg/min, Last Rate: 0.5 mg/min (02/17/24 0313) dexmedeTOMIDine, 0.2-1.5 mcg/kg/hr, Last Rate: 0.5 mcg/kg/hr (02/17/24 0648) furosemide, 10 mg/hr, Last Rate: 10 mg/hr (02/17/24 0859) PRN medications: calcium gluconate, dextrose, dextrose, glucagon, LORazepam, magnesium sulfate, melatonin, ondansetron, potassium & sodium phosphates OR potassium & sodium phosphates, potassium chloride OR potassium chloride OR potassium chloride OR Potassium chloride, sennosides, [COMPLETED] Insert peripheral IV AND [COMPLETED] Saline lock IV AND sodium chloride, sodium phosphates 45 mmol in sodium chloride 0.9 % 100 mL IVPB enoxaparin, 150 mg, Subcutaneous, q12h folic acid 1 mg in sodium chloride 0.9 % 50 mL IVPB, 1 mg, Intravenous, Daily metoprolol tartrate, 5 mg, Intravenous, q6h GREG multivitamin, 1 tablet, Oral, Daily thiamine (Vitamin B1) 250 mg in sodium chloride 0.9 % 100 mL IVPB, 250 mg, Intravenous, Daily ExamBP 110/69 | Pulse 68 | Temp 36.6 ?C (97.9 ?F) | Resp (!) 25 | Ht 1.803 m (5' 11") | Wt (!) 146 kg (321 lb 6.9 oz) | BMI 44.83 kg/m? Patient Vitals for the past 24 hrs: BP Temp Temp src Pulse Resp SpO2 02/17/24 0600 110/69 -- -- 68 -- 96 % 02/17/24 0500 93/61 -- -- 79 -- 97 % 02/17/24 0400 97/64 -- -- 78 -- 98 % 02/17/24 0300 101/64 -- -- 80 -- 98 % 02/17/24 0200 100/69 -- -- 78 -- 98 % 02/17/24 0100 95/66 -- -- 78 -- 97 % 02/17/24 0000 95/72 36.6 ?C (97.9 ?F) -- 84 -- 99 % 02/16/24 2300 94/64 -- -- 78 -- 97 % 02/16/24 2200 (!) 89/59 -- -- 78 -- 97 % 02/16/24 2100 104/74 -- -- 79 -- 96 % 02/16/242008 -- -- -- 85 (!) 25 99 % 02/16/241999 (!) 94/59 37.1 ?C (98.8 ?F) -- 85 -- 98 % 02/16/24 1900 94/67 -- -- 75 (!) 27 98 % 02/16/24 1700 94/74 -- -- 78 21 98 % 02/16/24 1600 106/72 -- -- 80 19 100 % 02/16/24 1500 98/63 -- -- 93 (!) 24 99 % 02/16/24 1400 98/61 -- -- 95 (!) 24 97 % 02/16/24 1300 105/67 -- -- (!) 124 19 92 % 02/16/24 1200 (!) 123/102 36.8 ?C (98.3 ?F) Axillary (!) 115 (!) 24 98 % 02/16/24 1100 116/60 -- -- 99 (!) 24 98 % 02/16/24 1000 116/78 -- -- 95 (!) 24 98 % 02/16/24 0945 106/69 -- -- (!) 122 (!) 24 98 % General: He is very somnolent while on BiPap and barely arousableRespiratory: Coarse BS Cardiovascular exam: JVP difficult to assess 2/2 body habitus. Irregularly irregular. NAYELY II/ at RUSB. Gastrointestinal: Soft, non-tender, normal bowel sounds. Vascular/Lymphatics: Diminished bilateral lower extremity distal pulses, 1+ bilateral lower extremity edema. Neurologic: He is somnolent and while he is able to move his extremities, he is barely arousable I/O last 3 completed shifts:In: 345.6 (2.4 mL/kg) [I.V.:345.1 (2.4 mL/kg); IV Piggyback:0.5] Out: 2705 (18.6 mL/kg) [Urine:2705 (0.5 mL/kg/hr)] Weight: 145.8 kg Diagnostic ResultsTelemetry: Atrial fibrillation with a ventricular rate that is much improved Lab Results Component Value Date Sodium Lvl 136 02/17/2024 Potassium Lvl 4.0 02/17/2024 Chloride Lvl 89 (L) 02/17/2024 CO2 Lvl >40.0 (HH) 02/17/2024 Magnesium 1.99 02/17/2024 Lab ResultsComponent Value Date Creatinine Lvl 0.96 02/17/2024 Estimated Creatinine Clearance: 109.8 mL/min (by C-G formula based on SCr of0.96 mg/dL). Lab Results Component Value Date ALT 13 02/17/2024 AST 17 02/17/2024 Alkaline Phosphatase 107 02/17/2024 Bilirubin Total 2.10 (H) 02/17/2024 Lab ResultsComponent Value Date HS Troponin I 1 Hour 10 02/14/2024 HS Troponin I 0 to 1 Hour Delta 2 02/14/2024 HS Troponin I Baseline 8 02/14/2024 Recent Labs:Diagnostic Results Chemistries and Metabolic Panel Results from last 7 days Lab Units 02/17/24 0326 02/16/24 0745 02/14/242034 SODIUM mEq/L 136 135* 135* POTASSIUM mEq/L 4.0 5.1* 4.2 CO2 mEq/L >40.0* 37.5* 33.3* CHLORIDE mEq/L 89* 92* 96* CALCIUM mg/dL 8.4 8.3 8.9 BUN mg/dL 12 16 13 CREATININE mg/dL 0.96 0.86 1.00 MAGNESIUM mg/dL 1.99 2.15 -- ALT U/L 13 19 -- CBCResults from last 7 days Lab Units 02/17/24 0326 02/16/24 0745 02/14/242034 HEMOGLOBIN g/dL 15.1 14.7 15.8 HEMATOCRIT % 47.4 45.8 49.9 WBC 10*3/uL 8.69 8.75 9.51 PLATELETS 10*3/uL 138* 160 164 Cardiac Labs:Results from last 7 days Lab Units 02/14/24 2146 02/14/242034 CREATINE KINASE U/L -- 119 TROPONIN I, HIGH SENSITIVITY, 1 HR pg/mL 10 -- TROPONIN I, HIGH SENSITIVITY, 0 TO 1HR 2 -- TROPONIN I, HIGH SENSITIVITY, BASELINE pg/mL -- 8 BNP pg/mL -- 257* I have personally review imaging, labs and other provider notes for today. Assessment: Hypercapnic respiratory failure.Newly diagnosed atrial fibrillation with rapid ventricular response. 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 Aortic stenosis, likely severe. Morbid obesity. Likely obstructive sleep apnea. Malignant hypertension. PLANMr. Randall is a 68-year-old man with the above medical problems who has been transferred to the intensive care unit and remains on BiPAP for support of his ventilation mainly. Continue with IV medications for now and once he is capable of taking medications orally, will return him to oral medications (GDMT). He does have significant aortic stenosis visually but gradients are not significantly elevated by echo, likely underestimated. He can be evaluated for underlying ischemic heart disease and severity of aortic valve stenosis as he recovers from hypercapnic respiratory failure. Recs- c/w Lasix gtt - will provide acetazolamide IV x 1 now - c/w therapeutic Lovenox as long as renal function stable and no evidence of bleeding - will continue to follow closely. - please call with any new questions or concerns Wei Appiah M.D. [facility]: , OM POLISHER * Riya Lee MD - 02/17/2024 8:47 AM BOTTOM POLISHER CRITICAL CARE MEDICINE PROGRESS NOTE HPI Keyur Randall Sr. is a 68 y.o. male with no known past medical history who presented on 1225 to the hospital with worsening exertional dyspnea, pedal edema, chest pain. Patient admitted to the floor with new onset A-fib and congestive heart failure and was being diuresed. However patient is also alcoholic and started going into withdrawal and got 1 mg of Ativan following which he became drowsy. Subsequent ABG showed hypercarbia and started on noninvasive ventilation and transferred to the ICU 02/16- afebrile, agitated ON and got a dose of Ativan, on BiPAP Still A fib - on amio, on lasix gtt - diuresing well , precedex 0.5 Intake/Output Summary (Last 24 hours) at 02/17/2024 0849 Last data filed at 02/17/2024 0500 Gross per 24 hour Intake -- Output 2525 ml Net -2525 ml Objective Vital signs in last 24 hours: Temp: [36.6 ?C (97.9 ?F)-37.1 ?C (98.8 ?F)] 36.6 ?C (97.9 ?F) Heart Rate: [68-124] 68 Resp: [19-27] 25 BP: (89-123)/(59-102) 110/69 FiO2 (%): [50 %-60 %] 50 % PHYSICAL EXAM: General: In distress HEENT: Normocephalic, atraumatic, no gaze preference, pupils equal and reactive Neck: , supple CV: Tachycardic, irregular, no murmurs, no gallop. Pulm:Coarse BS, wheezing present Abd: Soft, Non tender, non distended, +BS Derm: Normal, no evidence of skin breakdown Ext: Warm, well-perfused, bilateral lower extremity edema Neuro: Drowsy, protecting airway, responds to painful stimulus CURRENT MEDS enoxaparin, 150 mg, Subcutaneous, q12h folic acid, 1 mg, Oral, Daily metoprolol tartrate, 5 mg, Intravenous, q6h GREG multivitamin, 1 tablet, Oral, Daily thiamine, 100 mg, Oral, Daily amiodarone, 0.5 mg/min, Last Rate: 0.5 mg/min (02/17/243) dexmedeTOMIDine, 0.2-1.5 mcg/kg/hr, Last Rate: 0.5 mcg/kg/hr (02/17/24 0648) furosemide, 10 mg/hr, Last Rate: 10 mg/hr (02/16/242139) PRN medications: calcium gluconate, dextrose, dextrose, glucagon, LORazepam, magnesium sulfate, melatonin, ondansetron, potassium & sodium phosphates OR potassium & sodium phosphates, potassium chloride OR potassium chloride OR potassium chloride OR Potassium chloride, sennosides, [COMPLETED] Insert peripheral IV AND [COMPLETED] Saline lock IV AND sodium chloride, sodium phosphates 45 mmol in sodium chloride 0.9 % 100 mL IVPB Relevant Imaging and Results Chest [id number] lung volumes, about the same congestion, bilateral pleural effusions Stable renal function, bicarb more than 40, normal transaminases Hemoglobin stable, platelet count 138 from 160 Assessment & Plan Principal Problem: New onset atrial fibrillation (CMS/HCC) (HCC) Active Problems: Morbid obesity (HCC) BMI 40.0-44.9, adult (HCC) Hypertension Acute respiratory failure with hypoxia and hypercapnia (CMS/HCC) (HCC) Other heart failure (HCC) Alcohol withdrawal delirium, acute, hyperactive (HCC) Acute congestive heart failure Metabolic encephalopathy Alcohol withdrawal Acute hypoxemic hypercarbic respiratory failure Hyperammonemia CHF with reduced EF Possible cirrhosis of the liver Plan Continue on low-dose Precedex if needed for agitation, patient seems to be very sensitive to benzodiazepines, low-dose if needed as needed IV thiamine, unable to do lactulose as patient is not cooperative, enemas would likely be difficult as well in the setting of significant respiratory distress, will start when patient is able to take p.o. optimize volume status, continue Lasix drip, bicarb high in the setting of diuresis as well as mostly from chronic hypercarbia, received a dose of Diamox, continue on amio for rate control Beta-bertha per cardiology, has hold parameters Continue noninvasive ventilation, will repeat ABG N.p.o. for now, monitor LFTs, right upper quadrant ultrasound pending Monitor renal function, electrolytes, replace as appropriate Monitor for any bleeding, transfuse if hemoglobin is less than 7 POC blood glucose checks, watch for hypoglycemia DVT prophylaxis-on therapeutic dose of Lovenox GI prophylaxis-not indicated Discussed plan of care with patient's family was at the bedside Critical Care Time: I spent 42 minutes providing direct critical care to this patient. (Excludes time performing procedures) LOS: 3 days Disposition: Riya Lee MD OM POLISHER * Apolinar Garg PT - 02/16/2024 1:35 PM BOTTOM POLISHER Encounter Note Patient Name: Keyur Randall Sr. Today's Date: 02/16/2024 Missed Treatment Time and Reason 1335: Followed up with Nurse Lacie, patient not cleared for PT services for today, not appropriate at this time, patient Rapid Response earlier today, patient is "agitated, "asleep at this time. Instructed to follow up tomorrow when cleared, and appropriate. Patient's family present in room, informed, verbalized understanding and in agreement. Nurse Lacie to follow up with patient for today. Apolinar Garg PT OM POLISHER * HEMA Watkins - 02/16/2024 10:35 AM BOTTOM POLISHER OT Encounter Note Patient Name: Keyur Randall Sr. Today's Date: 02/16/2024 Missed Treatment Time and Reason Attempt made to see Pt @ 10:35 am in room E 717. Spoke to VISH Myers who reports Pt has been transferred to ICU (E 321) 2/2 hypoxia, tachycardia, and is now on bipap. Pt to be triaged at Level 1, not assistant corporate secretary appropriate at this time. Will continue to follow and Tx as permitted. Supervising Occupational Therapist: Ally Delarosa, OT HEMA Watkins OM POLISHER * Tim Tarango MD - 02/16/2024 8:41 AM BOTTOM POLISHER Images from the original note were not included. [facility] Cardiology [facility] [address] [place] [address] [phone] Cardiology Progress Note PATIENT: Keyur Randall Sr. MR NO: [id number] DATE OF : 1955 Visit Type: Inpatient Follow up Subjective He is very somnolent and not easily arousable this morning, the nursing staff has called the rapid response team and I have had a conversation with them. The patient is to be transferred to the ICU and placed on BiPAP as he has developed hypercapnic respiratory failure. OBJECTIVE amiodarone, 0.5 mg/min PRN medications: dextrose, dextrose, glucagon, LORazepam, melatonin, ondansetron, sennosides, [COMPLETED] Insert peripheral IV AND [COMPLETED] Saline lock IV AND sodium chloride enoxaparin, 150 mg, Subcutaneous, q12h folic acid, 1 mg, Oral, Daily furosemide, 40 mg, Intravenous, BID metoprolol tartrate, 5 mg, Intravenous, q6h GREG multivitamin, 1 tablet, Oral, Daily thiamine, 100 mg, Oral, Daily ExamBP (!) 103/59 | Pulse (!) 101 | Temp 36.6 ?C (97.8 ?F) | Resp (!) 27 | Ht 1.803 m (5' 11") | Wt (!) 146 kg (321 lb 6.9 oz) | BMI 44.83 kg/m? Patient Vitals for the past 24 hrs: BP Temp Temp src Pulse Resp SpO2 Height Weight 02/16/24 0800 (!) 103/59 -- -- (!) 101 (!) 27 97 % -- -- 02/16/24 0758 -- -- Axillary (!) 114 22 98 % -- -- 02/16/24 0757 137/82 -- -- -- -- -- -- -- 02/16/24 0756 -- 36.6 ?C (97.8 ?F) -- -- -- -- -- -- 02/16/24 0738 -- -- -- (!) 111 (!) 26 96 % -- -- 02/16/24 0737 126/76 -- -- (!) 111 (!) 26 96 % -- -- 02/16/24 0722 126/76 -- -- (!) 107 -- 91 % -- -- 02/16/24 0702 -- -- -- (!) 115 20 99 % -- -- 02/16/24 0701 (!) 144/94 -- -- -- -- -- -- -- 02/16/24 0659 -- -- -- (!) 115 18 98 % -- -- 02/16/24 0037 -- -- -- -- 19 -- -- -- 02/16/24 0037 146/77 -- -- -- -- -- -- -- 02/16/24 0026 -- -- Axillary (!) 101 -- 94 % -- -- 02/16/24 0025 -- 36.3 ?C (97.3 ?F) -- -- -- -- -- -- 02/15/242218 121/68 -- -- 99 -- -- -- -- 02/15/241935 -- -- Oral 99 17 93 % -- -- 02/15/241934 121/68 -- -- -- -- -- -- -- 02/15/241934 -- 37.7 ?C (99.8 ?F) -- -- -- -- -- -- 02/15/24 1541 -- -- Oral 93 (!) 23 96 % -- -- 02/15/24 1541 135/79 -- -- -- -- -- -- -- 02/15/24 1540 -- 37 ?C (98.6 ?F) -- -- -- -- -- -- 02/15/24 1149 -- -- Oral (!) 117 (!) 23 98 % -- -- 02/15/24 1148 118/88 -- -- -- -- -- -- -- 02/15/24 1147 -- 36.8 ?C (98.3 ?F) -- -- -- -- -- -- 02/15/24 0900 -- -- -- -- -- -- 1.803 m (5' 11") (!) 146 kg (321 lb 6.9 oz) General: He is very somnolent while on nasal cannula oxygen and barelyarousable Respiratory: Lungs are clear to auscultation Cardiovascular exam: Irregularly irregular and tachycardic Gastrointestinal: Soft, non-tender, normal bowel sounds. Vascular/Lymphatics: Diminished bilateral lower extremity distal pulses, 1+ bilateral lower extremity edema. Neurologic: He is somnolent and while he is able to move his extremities, he is barely arousable I/O last 3 completed shifts:In: 1005.6 (6.9 mL/kg) [P.O.:660; I.V.:345.1 (2.4 mL/kg); IV Piggyback:0.5] Out: 1180 (8.1 mL/kg) [Urine:1180 (0.2 mL/kg/hr)] Weight: 145.8 kg Diagnostic ResultsTelemetry: Atrial fibrillation with a ventricular rate fluctuating around 110 to 120 bpm Lab ResultsComponent Value Date Sodium Lvl 135 (L) 02/16/2024 Potassium Lvl 5.1 (H) 02/16/2024 Chloride Lvl 92 (L) 02/16/2024 CO2 Lvl 37.5 (H) 02/16/2024 Magnesium 2.15 02/16/2024 Lab ResultsComponent Value Date Creatinine Lvl 0.86 02/16/2024 Estimated Creatinine Clearance: 122.6 mL/min (by C-G formula based on SCr of0.86 mg/dL). Lab Results Component Value Date ALT 19 02/16/2024 AST 26 02/16/2024 Alkaline Phosphatase 120 (H) 02/16/2024 Bilirubin Total 1.30 (H) 02/16/2024 Lab ResultsComponent Value Date HS Troponin I 1 Hour 10 02/14/2024 HS Troponin I 0 to 1 Hour Delta 2 02/14/2024 HS Troponin I Baseline 8 02/14/2024 Recent Labs:Diagnostic Results Chemistries and Metabolic Panel Results from last 7 days Lab Units 02/16/24 0745 02/14/242034 SODIUM mEq/L 135* 135* POTASSIUM mEq/L 5.1* 4.2 CO2 mEq/L 37.5* 33.3* CHLORIDE mEq/L 92* 96* CALCIUM mg/dL 8.3 8.9 BUN mg/dL 16 13 CREATININE mg/dL 0.86 1.00 MAGNESIUM mg/dL 2.15 -- ALT U/L 19 -- CBCResults from last 7 days Lab Units 02/16/24 0745 02/14/242034 HEMOGLOBIN g/dL 14.7 15.8 HEMATOCRIT % 45.8 49.9 WBC 10*3/uL 8.75 9.51 PLATELETS 10*3/uL 160 164 Cardiac Labs:Results from last 7 days Lab Units 02/14/24 2146 02/14/24 2035 CREATINE KINASE U/L -- 119 TROPONIN I, HIGH SENSITIVITY, 1 HR pg/mL 10 -- TROPONIN I, HIGH SENSITIVITY, 0 TO 1HR 2 -- TROPONIN I, HIGH SENSITIVITY, BASELINE pg/mL -- 8 BNP pg/mL -- 257* I have personally review imaging, labs and other provider notes for today. Assessment: Hypercapnic respiratory failure.New onset of atrial fibrillation with rapid ventricular response. 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 Moderate to severe aortic stenosis. Morbid obesity. Likely obstructive sleep apnea. Malignant hypertension. PLANMr. Randall is a 68-year-old man with the above medical problems who is now being transferred to the intensive care unit and is to be placed on BiPAP for support of his ventilation mainly. I will switch his medications to IV for now and once he is capable of taking medications orally, we will switch him to oral medications. For now, he is not a candidate for medications that we typically use for congestive heart failure; we will institute these once he is capable of taking oral medications. Obviously, we will continue to follow. Tim Tarango M.D.Cardiology [facility] , OM POLISHER * Booker Hicks DO - 02/16/2024 8:00 AM BOTTOM POLISHER Subjective Agitated overnight, apparently drinks at least a 6-pack daily, started on CIWA protocol. ACTUARY CLERK called this morning as patient was obtunded and minimally responsive. Responded to ACTUARY CLERK, plan for transfer to ICU for closer monitoring. Discussed with family at bedside. Objective Last Recorded Vitals Blood pressure (!) 103/59, pulse (!) 119, temperature 37.1 ?C (98.7 ?F), temperature source Axillary, resp. rate 22, height 1.803 m (5' 11"), weight (!) 146 kg (321 lb 6.9 oz), SpO2 98%. Physical Exam: Constitutional: General: He is not in acute distress. Appearance: He is obese. HENT: Head: Normocephalic and atraumatic. Mouth/Throat: Mouth: Mucous membranes are moist. Pharynx: Oropharynx is clear. Eyes: Pupils: Pupils are equal, round, and reactive to light. Cardiovascular: Rate and Rhythm: Normal rate. Rhythm irregularly irregular. Heart sounds: No murmur heard. Pulmonary: Effort: Pulmonary effort is normal. No respiratory distress. Breath sounds: Normal breath sounds. Abdominal: General: Abdomen is flat. Bowel sounds are normal. There is no distension. Palpations: Abdomen is soft. Tenderness: There is no abdominal tenderness. Musculoskeletal: General: No swelling. Skin: General: Skin is warm and dry. Neurological: General: No focal deficit present. Mental Status: He is alert and oriented to person, place, and time. Cranial Nerves: No cranial nerve deficit. Psychiatric: Mood and Affect: Mood normal. Behavior: Behavior normal. Medications enoxaparin, 150 mg, Subcutaneous, q12h folic acid, 1 mg, Oral, Daily metoprolol tartrate, 5 mg, Intravenous, q6h GREG thiamine (Vitamin B-1) IV, 100 mg, Intravenous, Daily Lab ResultsRecent Results (from the past 24 hours) Transthoracic echo (TTE) complete Collection Time: 02/15/24 11:15 AM Result Value Ref Range LA Vol I (A4C) BSA 21.80 ml/m2 LVOT Vmax/AV Vmax 0.44 [ratio] Ao Root diam diastole 35 mm LVOT Vmean 0.44 m/s LV SV (A4C) 39.90 ml LV SI (A4C) 15.90 ml/m2 LVLs (A4C) 77.00 mm LVLd (A4C) 79.70 mm LV EDV A4C 94.00 mL LA area A4C 22.10 cm2 LV ESV A4C 54.00 mL MV max brendan 1.01 cm/s TR pk grad 26.00 mmHg TAPSE 10 mm MV mn brendan 0.571 m/s LV est EF 46 % MV VTI 20.3 cm MV E pk brendan 0.92 m/s MV pk grad 4.00 mmHg AV pk grad 7.00 mmHg LV stroke vol 18.00 ml AV VTI 18.2 cm AV pk brendan 1.28 m/s LVOT VTI 8.1 cm LVOT pk brendan 0.57 m/s LVOT area 2.27 cm2 LVOT diam 17 mm MV DT 130 ms MV e' lateral brendan 8.38 cm/s PV pk grad 1.00 mmHg MV area cont eq 0.90 cm2 MV mn grad 2.00 mmHg LVOT pk grad 1.00 mmHg AV mn grad 3.00 mmHg MV E/e' septal 13.90 TR pk brendan 2.53 m/s AV area pk brendan 1.01 cm2 AV area cont VTI 1.01 cm2 LVOT mn grad 1.00 mmHg LV A4C EF 43 % AV mn brendan 0.85 m/s LVPWd 14 mm LA size 42 mm Fractional Shortening 2D 23 % LVIDs 40 mm IVSd 13 mm LVIDd 52 mm PV pk brendan 0.57 m/s MV E/e' lateral 11.00 MV e' septal brendan 6.64 cm/s LV ESV 2D 69.20 mL LV EDV 2D 128.00 mL IVSd 2D [id number] cm BSA 2.7 m2 POC Glucose Collection Time: 02/15/24 3:46 PM Result Value Ref Range POC Glu 119 (H) 70 - 99 mg/dL POC Glu Comment 1 Notified RN/MD POC Performing Location [facility] Drug Screen Urine (8 Drugs) Collection Time: 02/16/24 1:52 AM Result Value Ref Range U Amph Scr Negative Negative U Sylvie Scr Negative Negative U Benzodiaz Scr Negative Negative U Cannab Scr Positive (A) Negative U Cocaine Scr Negative Negative U FENTANYL Scr Negative Negative U Opiate Scr Negative Negative U Phencyclidine Scr Negative Negative POC Glucose Collection Time: 02/16/24 7:15 AM Result Value Ref Range POC Glu 115 (H) 70 - 99 mg/dL POC Glu Comment 1 Notified RN/MD POC Performing Location [facility] Blood Gas, Arterial Collection Time: 02/16/24 7:32 AM Result Value Ref Range pH Art 7.26 (L) 7.35 - 7.45 PCO2 Art 97 (HH) 35 - 45 mmHg PO2 Art 93 80 - 100 mmHg HCO3 Art 43.5 (H) 22.0 - 26.0 mmol/L BE Art 12 (H) -2 - 2 mmol/L O2 Sat Art 96.0 95.0 - 100.0 % FiO2 Art 60.0 Comprehensive metabolic panel Collection Time: 02/16/24 7:45 AM Result Value Ref Range Sodium Lvl 135 (L) 136 - 145 mEq/L Potassium Lvl 5.1 (H) 3.4 - 4.5 mEq/L Chloride Lvl 92 (L) 98 - 107 mEq/L CO2 Lvl 37.5 (H) 20.0 - 31.0 mEq/L Anion Gap 10.6 10.0 - 20.0 mEq/L Glucose Lvl 118 (H) 70 - 99 mg/dL Creatinine Lvl 0.86 0.7 - 1.30 mg/dL BUN 16 9 - 23 mg/dL B/C Ratio 19 6 - 25 Protein 7.8 5.7 - 8.2 g/dL Albumin Lvl 3.3 (L) 3.4 - 5.0 g/dL Globulin, Calc 4.5 (H) 2.0 - 4.0 g/dL Albumin/Globulin Ratio 0.73 0.7 - 1.6 Calcium Lvl 8.3 8.3 - 10.6 mg/dL ALT 19 7 - 40 U/L AST 26 12 - 40 U/L Alkaline Phosphatase 120 (H) 46 - 116 U/L Bilirubin Total 1.30 (H) 0.20 - 1.10 mg/dL eGFR 95 >60 mL/min/1.73m2 Magnesium Level AM Collection Time: 02/16/24 7:45 AM Result Value Ref Range Magnesium 2.15 1.6 - 2.60 mg/dL Phosphorus Level AM Collection Time: 02/16/24 7:45 AM Result Value Ref Range Phosphorus Lvl 4.5 2.4 - 5.1 mg/dL Complete Blood Count Collection Time: 02/16/24 7:45 AM Result Value Ref Range WBC 8.75 3.92-.10.07 10*3/uL RBC 4.43 4.27 - 6.02 10*6/uL NRBC % 0.0 0 /100 WBC Hgb 14.7 12.4 - 17.4 g/dL Hct 45.8 37.1 - 50.8 % MCV 103.4 (H) 79.2 - 96.8 fL MCH 33.2 (H) 26.1 - 32.4 pg MCHC 32.1 31.2 - 36.1 g/dL RDW - SD 55.8 (H) 34.0 - 37.0 fL Plt Count 160 160 - 381 10*3/uL MPV 10.7 9.0 - 12.0 fL Automated Differential Collection Time: 02/16/24 7:45 AM Result Value Ref Range Segs % 65.3 40.6 - 75.7 % Lymphs % 21.9 14.9 - 47.8 % Monos % 10.7 4.2 - 12.6 % Eos % 0.8 0.2 - 5.0 % Basos % 0.3 0.2 - 1.3 % Immature Grans % 1.0 0.1 - 1 % Segs # 5.70 1.48 - 6.56 10*3/uL Lymphs # 1.92 0.86 - 3.84 10*3/uL Monos # 0.94 0.29 - 0.96 10*3/uL Eos # 0.07 0.00 - 0.46 10*3/uL Basos # 0.03 0.01 - 0.08 10*3/uL Imm Grans # 0.09 (H) 0.01 - 0.07 10*3/uL Ammonia Level Collection Time: 02/16/24 7:45 AM Result Value Ref Range Ammonia Lvl 82 (H) 10 - 28 umol/L Extra Light Blue Top Collection Time: 02/16/24 7:47 AM Result Value Ref Range Hold Specimen Hold for add-ons. Extra Green Collection Time: 02/16/24 7:47 AM Result Value Ref Range Hold Specimen Hold for add-ons. @IMAGESENCORD@ XR hand 3+ views leftNarrative: EXAM: XR HAND 3 OR MORE VIEWS LEFT DATE: 02/15/2024 6:14 AM BOTTOM POLISHER. INDICATION: pain, . COMPARISON: None available. TECHNIQUE: 3 views of the left hand. FINDINGS: * No acute fracture or malalignment is identified.* Moderate osteoarthritic changes of the hand. Assessment of the second digit is limited by overlying radiopaque splint. Osseous demineralization * No acute soft tissue abnormality is identified. Impression: Moderate osteoarthritic changes. No acute fracture within the limitations as above Electronically signed by: Isaac Lemus MD 02/15/2024 08:32 AM BOTTOM POLISHER ECG 12 lead Suspect unspecified pacemaker failure ATRIAL FIBRILLATION WITH A RAPID VENTRICULAR RESPONSE NONSPECIFIC ST SEGMENT ABNORMALITY(IES) ABNORMAL ECG AssessmentKeyur Randall Sr. is a 68 y.o. male with no known PMHX who presented on 02/14/2024 with complaints of worsening SOB, LE edema, CP, and congestion. Admitted for new-onset Afib with RVR with possible new-onset CHF. Hospital course complicated by acute hypercapnic respiratory failure and alcohol withdrawals. Now transferring to ICU s/p ACTUARY CLERK early this AM. Assessment & Plan Acute respiratory failure with hypoxia and hypercapnia (CMS/HCC) (HCC) ACTUARY CLERK this AM (02/15) due to obtunded state, ABG with hypercapnia Plan for transfer to ICU for continuous BIPAP Serial ABG Discussed with ship's cook Alcohol withdrawal delirium, acute, hyperactive (HCC) CIWA protocol, given IV Ativan overnight Now obtunded due to hypercapnia, but may become more hyperactive after improvement on BIPAP Plan to transfer to ICU as above, may need to consider Precedex if agitated on BIPAP Thiamine IV Folate, MVI PO when able to tolerate New onset atrial fibrillation (CMS/HCC) (HCC) Started on amiodarone gtt by cardio Also started on PO metoprolol Therapeutic Lovenox for AC Cardio recs appreciated Other heart failure (HCC) Continue Lasix Cardiology following Echocardiogram once HR improved GDMT pending echo Morbid obesity (HCC) Poor prognosis factor BMI 40.0-44.9, adult (HCC) Poor prognosis factor Hypertension Improved with diuresis Current DietNPO Diet VTE prophylaxisenoxaparin - 150 mg/mL DispositionPlan to transfer to ICU for continuous BIPAP and possible need for Precedex. Discussed with ACTUARY CLERK team and ship's cook. Patient is critically ill and has a high probability of sudden, clinically significant deterioration which requires the highest level of physician preparedness to intervene urgently. I personally managed/supervised life or organ supporting interventions that required frequent physician assessment. I devoted my full attention in a critical-care setting to the direct care ofthis patient, and spent greater than 50% of that time reviewing necessary laboratories, chart and imaging as well as time spend with family or surrogate(s) counseling and coordinating care with nurses and other specialties. Total Critical Care time spent: 35 minutes Booker Hicks DO02/16/2024 OM POLISHER * Apolinar Garg, PT - 02/15/2024 12:44 PM BOTTOM POLISHER Evaluation and Treatment Note Patient Name: Keyur Randall Sr. Today's Date: 02/15/2024 Pt seen in room: E7.717/E7.717 Preferred Language: Ecuadorean Assessment & Plan Assessment: PT Assessment: 68 y/o Male, Dx:New Onset Atrial Fibrillation, Morbid Obesity BMI 40.0- 44.9, Adult, HTN, Acute Hypoxemic Respiratory Failure, other Heart failure. 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 DME's: S/Cane, Rollator, W/C, BSC, shower chair. Current Status: No c/o pain, c/o feeling tired. Bed Mobility: Min A. Transfers: (sit to stand Mod- max A) Min A with assistive device R/W, (unsteady)- (unable to stand pivot w/o assistive device), Gait: R/W, with gait belt, W/C to follow 90 feet CGA (unsteady)- High Fall Risks, showed Good potential in benefiting with PT, to achieve highest Functional Level of [place] with the least possible physical burden of care with overall Functional Mobility Tasks, and Gait, with Functional balance, and safety, to prepare to next Functional level of care. Prognosis: Good Barriers to Discharge: Medical diagnosis Evaluation/Treatment Tolerance: Patient limited by fatigue, Patient tolerated treatment well Medical Staff Made Aware: Yes Strengths: Ability to acquire knowledge, Access to adaptive/assistive products, Coping skills, Living arrangement secure Plan: Treatment Plan/Goals Established with Patient/Caregiver: Yes Treatment/Interventions: Balance training, Bed mobility training, Functional activities, Gait training, Patient education, Pain management, Positioning, Posture/Body mechanics baring, Therapeutic exercises, Transfer training PT Plan: Skilled PT PT Frequency: 5-7 times per week until discharge PT Discharge Recommendations: Inpatient rehab facility placement Equipment Recommended: Other PT Recommended Transfer Status: Assistive equipment (Comment) Therapy discharge recommendations are made by determining the patient's prior level of function, assessing current function level and establishing rehab potential. The overall discharge plan may be affected by input from Physicians, Care Coordination, medical condition/status, family support and insurance benefits. Subjective Medical records reviewed, PT order verified, followed up with Nurse Coker, cleared for PT Eval and Treat. Initiated PT, pt semisupine in bed, pt's daughter present in room, no c/o pain, c/o feeling tired, agreed to participate with PT. Current Problem: Pt is a 68 y.o. male who presents with Unsteady gait, dec functional mobility, dec balance, inc risks of fall. Past Medical History Pt has no past medical history on file. Surgical History Pt has no past surgical history on file. Pain: Pain Assessment: 0-10 Pain Score: 0 Vital Signs: Patient Vitals for the past 24 hrs: BP MAP (mmHg) Pulse Resp SpO2 Patient Activity During SpO2 Measurement 02/15/24 1541 -- -- 93 (!) 23 96 % -- 02/15/24 1541 135/79 98 -- -- -- -- 02/15/24 1149 -- -- (!) 117 (!) 23 98 % -- 02/15/24 1148 118/88 98 -- -- -- -- 02/15/24 0811 -- -- 75 (!) 23 97 % -- 02/15/24 0809 116/75 89 -- -- -- -- 02/15/24 0427 128/80 -- 89 -- 100 % -- 02/15/24 0426 128/80 96 -- -- -- -- 02/15/24 0003 -- -- 75 14 97 % -- 02/15/24 0002 145/80 (!) 102 -- -- -- -- 02/14/240 137/81 87 (!) 135 (!) 24 95 % -- 02/14/24 2130 (!) 164/102 (!) 118 (!) 133 (!) 24 97 % -- 02/14/242099 (!) 125/92 (!) 104 (!) 130 18 97 % -- 02/14/242029 147/82 97 (!) 136 (!) 28 99 % -- 02/14/242007 (!) 154/103 -- (!) 105 22 (!) 86 % At rest Health Conditions Pain Interference with Therapy Activities: Occasionally (O2 sat at 97%- pulse 87 bpm with 3 lpm O2 use) Home Living: Type of Home: Apartment Lives With: Alone Home Adaptive Equipment: Walker rolling or standard, Cane, Wheelchair-manual (has a S/cane and Rollator, and a W/C but does not use them prior to admission) Home Layout: One level (1st floor) Home Access: Level entry Bathroom Shower/Tub: Tub/shower unit Bathroom Toilet: Standard Bathroom Equipment: Bedside commode, Shower chair with back Prior Level of Function: Level of [place]: Household ambulation (accdng to patient does not need assistive device when walking) Receives Help From: Family (Daughter for laundry) ADL Assistance: Independent Homemaking Assistance: Needs assistance Meal Prep: Independent (accdng to pt- some cooking) Laundry: Dependent (accdng to patient- his daughter does his laundry) Driving: Dependent Objective General Visit Information: Family/Caregiver Present: Yes (Daughter) Precautions: Medical Precautions: Fall Precaution Cognition: Overall Cognitive Status: Within Functional Limits Behavior/Cognition: Alert, Cooperative, Pleasant mood Orientation Level: Oriented X4 (somewhat slow, an needs redirecting) General Assessments: Activity Tolerance Activity Tolerance Endurance: Tolerates 30 min exercise with multiple rests Sitting Balance: Sits without support for more than 30 sec Balance- Sitting Static Sitting-Balance Support: No upper extremity supported, Feet unsupported Level of Assistance: Setup/clean up assistance, Supervision/touching assistance Balance- Standing Static Standing-Balance Support: Right upper extremity supported, Left upper extremity supported Static Standing-Level of Assistance: Partial/Mod assistance (steadier with R/W use) Dynamic Standing-Balance Support: Right upper extremity supported, Left upper extremity supported Functional Assessments: Bed Mobility Bed Mobility 1: Level of Assistance 1: Partial/Mod assistance (Minimal A) Bed Mobility Comments 1: Pt required extra time with difficulties with guarding-cueing for proper bed positioning, bed mobility, and log rolling techniques. Bed Mobility To/From: Roll left/right, Supine to sit on EOB, Sitting EOB to supine, Supine to long sit, Long sit to supine Assistive Devices And Adaptive Equipments: No device, Bed rail, Head of bed elevated Transfers Transfers 1: Technique 1: Stand pivot, Via walking Level of Assistance 1: Partial/Mod assistance (Minimal A to CGA) Trials/Comments 1: unsteady, guarded, cueing for proper feet and hands placement, proper posture, body mechanics, and balance and safety. (difficulty standing without assistive device). Difficulty sit to stand Mod A to Max A w/o assistive device, Min to Mod A with R/W use. Transfer To/From: Bed, Chair, Wheelchair, [id number]-gf-[id number]/Mqvky-no-Kyf Assistive Devices And Adaptive Equipments: Walker, front-wheeled, Other (gait belt- unable to standpivot w/o assistive device) Gait Gait Training Time Entry: 15 Gait Training Activity 1: Distance (enter in feet): 90 Gait Training Activity 1: Indoor surface Assistive Devices And Adaptive Equipments: Walker, front-wheeled, Other (comment) (gait belt, W/C to follow by Door To Door Fundraising Collector Ade) Level of Assistance 1: Supervision/touching assistance (CGA) Gait Training Activity 1 Comment: unsteady, slouched forward faulty posture, narrow base of support, knees/hips flexed, slow, short guarded strides-cueing for proper posture, gait mechanics, balance and safety. Extremity Assessments: Right Lower Extremity RLE Assessment RLE Assessment: Exceptions to WFL Strength RLER Hip Flexion: 3+/5 R Hip Extension: 4/5 R Hip ABduction: 3+/5 R Hip ADduction: 3+/5 R Hip External Rotation: 4-/5 R Hip Internal Rotation: 4-/5 R Knee Flexion: 3+/5 R Knee Extension: 3+/5 R Ankle Dorsiflexion: 3+/5 R Ankle Plantar Flexion: 4/5 R Ankle EVersion: 3+/5 R Ankle INversion: 3+/5 Left Lower Extremity LLE AssessmentLLE Assessment: Exceptions to WFL Strength LLEL Hip Flexion: 3+/5 L Hip Extension: 4/5 L Hip ABduction: 3+/5 L Hip ADduction: 3+/5 L Hip External Rotation: 4-/5 L Hip Internal Rotation: 4-/5 L Knee Flexion: 3+/5 L Knee Extension: 3+/5 L Ankle Dorsiflexion: 3+/5 L Ankle Plantar Flexion: 4/5 L Ankle EVersion: 3+/5 L Ankle INversion: 3+/5 Activity Tolerance:Endurance: Tolerates 30 min exercise with multiple rests Sitting Balance: Sits without support for more than 30 sec CognitionOverall Cognitive Status: Within Functional Limits Behavior/Cognition: Alert, Cooperative, Pleasant mood Orientation Level: Oriented X4 (somewhat slow, an needs redirecting) TreatmentTherapeutic exercise: Therapeutic Exercise Activity 1: BLE's: Toes Flex- ext, Ankles Eversion/ Inversion, Ankles Circles/ CW-CCW, Quads sets/ Gluts Sets, Heels slides, SAQ, Hips Add- Abd, SLR, Hips IR/ER, LAQ, Seated Marching. (issued written HEP- reviewed, to follow up). Position 1: Supine (and seated) Therapeutic activity:Therapeutic Activity Therapeutic Activity Time Entry: 29 Therapeutic Activity 1: Thera ROM/ Isometric Ex BLE's, Bed Mobility Training, sit to stand to sit, Transfers Training Bed Mobility: Bed Mobility 1:Level of Assistance 1: Partial/Mod assistance (Minimal A) Bed Mobility Comments 1: Pt required extra time with difficulties with guarding-cueing for proper bed positioning, bed mobility, and log rolling techniques. Bed Mobility To/From: Roll left/right, Supine to sit on EOB, Sitting EOB to supine, Supine to long sit, Long sit to supine Assistive Devices And Adaptive Equipments: No device, Bed rail, Head of bed elevated Transfers: Transfers 1: Technique 1: Stand pivot, Via walking Level of Assistance 1: Partial/Mod assistance (Minimal A to CGA) Trials/Comments 1: unsteady, guarded, cueing for proper feet and hands placement, proper posture, body mechanics, and balance and safety. (difficulty standing without assistive device). Difficulty sit to stand Mod A to Max A w/o assistive device, Min to Mod A with R/W use. Transfer To/From: Bed, Chair, Wheelchair, [id number]-Ywafl/[id number] Assistive Devices And Adaptive Equipments: Walker, front-wheeled, Other (gait belt- unable to standpivot w/o assistive device) Gait training: Gait Training Time Entry: 15 Gait Training Activity 1:Distance (enter in feet): 90 Gait Training Activity 1: Indoor surface Assistive Devices And Adaptive Equipments: Walker, front-wheeled, Other (comment) (gait belt, W/C to follow by Door To Door Fundraising CollectorAcoma-Canoncito-Laguna Service UnitAde) Level of Assistance 1: Supervision/touching assistance (CGA) Gait Training Activity 1 Comment: unsteady, slouched forward faulty posture, narrow base of support, knees/hips flexed, slow, short guarded strides-cueing for proper posture, gait mechanics, balance and safety. AM-PAC Basic Mobility:Turning in bed without bedrails: A Little Lying on back to sitting on edge of flat bed: A Little Bed to chair: A Little Standing up from chair: A Lot Walk in room: A Little Climbing 3-5 stairs: Total Mobility Inpatient Raw Score: 15 -[facility] Goal: 4 Patient Education: Education Documentation Other Physical Therapy Education Topics, taught by Apolinar Garg PT at 02/15/2024 5:14 PM. Learner: Family, Patient Readiness: Acceptance Method: Explanation, Demonstration, Handout Response: Needs Reinforcement Home Exercise Program, taught by Apolinar Garg PT at 02/15/2024 5:14 PM. Learner: Family, Patient Readiness: Acceptance Method: Explanation, Demonstration, Handout Response: Needs Reinforcement Precautions, taught by Apolinar Garg PT at 02/15/2024 5:14 PM.Learner: Family, Patient Readiness: Acceptance Method: Explanation, Demonstration, Handout Response: Needs Reinforcement Pain Management, taught by Apolinar Garg PT at 02/15/2024 5:14 PM.Learner: Family, Patient Readiness: Acceptance Method: Explanation, Demonstration, Handout Response: Needs Reinforcement Fall Prevention, taught by Apolinar Garg PT at 02/15/2024 5:14 PM.Learner: Family, Patient Readiness: Acceptance Method: Explanation, Demonstration, Handout Response: Needs Reinforcement Body Mechanics, taught by Apolinar Garg PT at 02/15/2024 5:14 PM.Learner: Family, Patient Readiness: Acceptance Method: Explanation, Demonstration, Handout Response: Needs Reinforcement Mobility, taught by Apolinar Garg PT at 02/15/2024 5:14 PM.Learner: Family, Patient Readiness: Acceptance Method: Explanation, Demonstration, Handout Response: Needs Reinforcement Positioning, taught by Apolinar Garg PT at 02/15/2024 5:14 PM.Learner: Family, Patient Readiness: Acceptance Method: Explanation, Demonstration, Handout Response: Needs Reinforcement Physical Therapy Plan of Care, taught by Apolinar Garg PT at 02/15/2024 5:14PM. Learner: Family, Patient Readiness: Acceptance Method: Explanation, Demonstration, Handout Response: Needs Reinforcement Education CommentsNo comments found. Goal:Encounter Goals Encounter Goals (Active) Patient will perform chair to and from bed transfer with no assistance Start: 02/15/24 Expected End: 03/08/24 Patient will roll bilateral with no assistance using with or w/o bedrails Start: 02/15/24 Expected End: 03/08/24 Patient will perform supine to sit on bed with no assistance demonstrating control Start: 02/15/24 Expected End: 03/08/24 Patient will perform sit to supine on bed with no assistance demonstrating control Start: 02/15/24 Expected End: 03/08/24 Patient will ambulate 300 feet distance using walker with no assistance Start: 02/15/24 Expected End: 03/08/24 Treatment Note: If this is the last documented treatment, then it will signify discharge from acute care prior to discharge from the therapy service and will serve as the discharge summary. SMOOTH Menjivarime in: Start Time: 1244 Time out: Stop Time: 1343 Total time: Time Calculation (min): 59 min OM POLISHER * Zeke Morgan, OT - 02/15/2024 10:51 AM BOTTOM POLISHER Evaluation and Treatment Patient Name: Keyur Randall . Today's Date: 02/15/2024 Pt seen in room: E7.717/E7.717 Preferred Language: Ecuadorean Assessment & Plan Assessment:Pt admitted with SOB, currently on 3L NC; feeling better. Pt normally lives alone on a 1st floor apartment; dtr assists with groceries, pt otherwise independent prior to admit. Pt currently presents with generalized weakness, decreased activity tolerance, some mild decreased standing balance and limited in ADLs at this time. Pt will benefit from OT services to increase ADL independence. Plan:Treatment Plan/Goals Established with Patient/Caregiver: Yes Treatment Interventions: ADL retraining, Functional transfer training, UE strengthening/ROM, Visual perceptual retraining OT Plan: Skilled OT OT Frequency: 3-5 times per week until discharge OT Discharge Recommendations: Home Health OT OT Planned Treatments: Activities of Daily Living, Balance training, Energy conservation training, Therapeutic exercises, Therapeutic activities OT Duration: 1-2 weeks Therapy discharge recommendations are made by determining the patient's prior level of function, assessing current function level and establishing rehab potential. The overall discharge plan may be affected by input from Physicians, Care Coordination, medical condition/status, family support and insurance benefits. Subjective"I can't move because of my knees" Current Problem:Pt is a 68 y.o. male who presents with New onset atrial fibrillation (CMS/HCC) (HCC) Admitted with complaints of SOB Past Medical HistoryPt has no past medical history on file. Surgical HistoryPt has no past surgical history on file. Pain:Pain Assessment Pain Assessment: 0-10 Pain Score: 0 Pain Rating Scale (DVPRS): No pain Pain Type: Acute pain Pain Location: Chest Clinical Progression: Gradually improving Patient's Stated Pain Goal: 2 Objective Vital Signs:VSS General Visit Information:Family/Caregiver Present: Yes Others Present: Dtr Precautions:Fall Cognition:Orientation Level: Oriented X4 Home Living:Type of Home: Apartment (1st floor) Lives With: Alone Home Adaptive Equipment: (Rollator and shower chair) Prior Function:Level of [place]: Ambulated with assistive device (comment) ADL Assistance: Independent Prior Function Comments: Uses rollator and able to complete ADLs independently - dtr assisted with grocery shopping Self Care (ADL):Eating Assistance: Setup/clean-up assistance Grooming Assistance: Setup/clean-up assistance UE Dressing Assistance: Setup/clean-up assistance LE Dressing Assistance: Supervision/touching assistance Toileting Assistance: Setup/clean-up assistance Mobility/Transfers:Bed Mobility Bed Mobility Bed Mobility: Yes Bed Mobility 1 Level of Assistance 1: Supervision/touching assistance Bed Mobility To/From: Sitting EOB to supine, Supine to sit on EOB TransferTransfers Transfer: Yes Transfer 1 Level of Assistance 1: Supervision/touching assistance Transfer To/From: [id number]/Mzerf-[id number]-Bum Assistive Devices And Adaptive Equipments: Walker, front-wheeled OT General Assessments:ADL Eating Assistance: Setup/clean-up assistance Grooming Assistance: Setup/clean-up assistance UE Dressing Assistance: Setup/clean-up assistance LE Dressing Assistance: Supervision/touching assistance Toileting Assistance: Setup/clean-up assistance Vision - Basic AssessmentCurrent Vision: No visual deficits ProprioceptionProprioception: RUE Intact, LUE Intact PerceptionInattention/Neglect: Appears intact Initiation: Appears intact Motor Planning: Appears intact Perseveration: Not present CoordinationMovements are Fluid and Coordinated: Yes Finger to Nose: Left intact, Right intact Hand FunctionGross Grasp: Functional Coordination: Functional Extremity Assessments:Right Upper Extremity RUE Assessment RUE Assessment: Within Functional Limits Left Upper Extremity LUE AssessmentLUE Assessment: Within Functional Limits Upper Extremity ToneLeft Upper Extremity: Normal Right Upper Extremity: Normal Treatment:Self-Care: Eating Assistance: Setup/clean-up assistance Grooming Assistance: Setup/clean-up assistance UE Dressing Assistance: Setup/clean-up assistance LE Dressing Assistance: Supervision/touching assistance Toileting Assistance: Setup/clean-up assistance AM-PAC Daily Activity:Putting on and taking off regular lower body clothing: A Little Bathing (including washing, rinsing, drying): A Little Toileting, which includes using toilet, bedpan or urinal: A Little Putting on and taking off regular upper body clothing: A Little Taking care of personal grooming such as brushing teeth: A Little Eating Meals: None AM-PAC Daily Activity Raw Score: 19 MobilityHighest Level of Mobility Performed (JH-HLM): Walked 10 steps or more (i.e. walked to restroom) Patient Education:Education Documentation Body Mechanics, taught by Zeke Morgan OT at 02/15/2024 1:46 PM. Learner: Patient Readiness: Eager Method: Explanation Response: Verbalizes Understanding Adaptive Equipment, taught by Zeke Morgan OT at 02/15/2024 1:46 PM. Learner: Patient Readiness: Eager Method: Explanation Response: Verbalizes Understanding Mobility Training, taught by Zeke Morgan OT at 02/15/2024 1:46 PM. Learner: Patient Readiness: Eager Method: Explanation Response: Verbalizes Understanding ADL Training, taught by Zeke Morgan OT at 02/15/2024 1:46 PM.Learner: Patient Readiness: Eager Method: Explanation Response: Verbalizes Understanding Occupational Therapy Plan of Care, taught by Zeke Morgan OT at104/17/2023 1:46 PM. Learner: Patient Readiness: Eager Method: Explanation Response: Verbalizes Understanding Education CommentsNo comments found. Goals:Encounter Goals Encounter Goals (Active) Patient will complete grooming standing at the sink with supvn Start: 02/15/24 Expected End: 02/29/24 Patient will complete dressing with supvn Start: 02/15/24 Expected End: 02/29/24 Patient will complete toilet transfer with supvn Start: 02/15/24 Expected End: 02/29/24 Treatment Note: If this is the last documented treatment, then it will signify discharge from acute care prior to discharge from the therapy service and will serve as the discharge summary. Zeke Morgan OT OM POLISHER * Booker Hicks, DO - 02/15/2024 9:10 AM BOTTOM POLISHER Subjective Admitted overnight. Seen and examined at bedside this morning, no acute complaints. Started on amiodarone gtt by cardio. Objective Last Recorded Vitals Blood pressure 116/75, pulse 75, temperature 36.3 ?C (97.4 ?F), resp. rate (!) 23, height 1.803 m (5' 10.98"), weight 136 kg (300 lb), SpO2 97%. Physical Exam: Constitutional: General: He is not in acute distress. Appearance: He is obese. HENT: Head: Normocephalic and atraumatic. Mouth/Throat: Mouth: Mucous membranes are moist. Pharynx: Oropharynx is clear. Eyes: Pupils: Pupils are equal, round, and reactive to light. Cardiovascular: Rate and Rhythm: Normal rate. Rhythm irregularly irregular. Heart sounds: No murmur heard. Pulmonary: Effort: Pulmonary effort is normal. No respiratory distress. Breath sounds: Normal breath sounds. Abdominal: General: Abdomen is flat. Bowel sounds are normal. There is no distension. Palpations: Abdomen is soft. Tenderness: There is no abdominal tenderness. Musculoskeletal: General: No swelling. Skin: General: Skin is warm and dry. Neurological: General: No focal deficit present. Mental Status: He is alert and oriented to person, place, and time. Cranial Nerves: No cranial nerve deficit. Psychiatric: Mood and Affect: Mood normal. Behavior: Behavior normal. Medications enoxaparin, 140 mg, Subcutaneous, q12h furosemide, 40 mg, Intravenous, BID metoprolol tartrate, 25 mg, Oral, q8h GREG Lab ResultsRecent Results (from the past 24 hours) Basic metabolic panel Collection Time: 02/14/24 8:35 PM Result Value Ref Range Glucose Lvl 102 (H) 70 - 99 mg/dL BUN 13 9 - 23 mg/dL Creatinine Lvl 1.00 0.7 - 1.30 mg/dL Sodium Lvl 135 (L) 136 - 145 mEq/L Potassium Lvl 4.2 3.4 - 4.5 mEq/L Chloride Lvl 96 (L) 98 - 107 mEq/L CO2 Lvl 33.3 (H) 20.0 - 31.0 mEq/L Anion Gap 9.9 (L) 10.0 - 20.0 mEq/L Calcium Lvl 8.9 8.3 - 10.6 mg/dL eGFR 82 >60 mL/min/1.73m2 Creatine Kinase Collection Time: 02/14/24 8:35 PM Result Value Ref Range CK Total 119 62 - 302 U/L Troponin I High Sensitivity Careset (Baseline) Collection Time: 02/14/24 8:35 PM Result Value Ref Range HS Troponin I Baseline 8 0 - 54 pg/mL Complete Blood Count Collection Time: 02/14/24 8:35 PM Result Value Ref Range WBC 9.51 3.92-.10.07 10*3/uL RBC 4.94 4.27 - 6.02 10*6/uL NRBC % 0.0 0 /100 WBC Hgb 15.8 12.4 - 17.4 g/dL Hct 49.9 37.1 - 50.8 % MCV 101.0 (H) 79.2 - 96.8 fL MCH 32.0 26.1 - 32.4 pg MCHC 31.7 31.2 - 36.1 g/dL RDW - SD 53.4 (H) 34.0 - 37.0 fL Plt Count 164 160 - 381 10*3/uL MPV 10.3 9.0 - 12.0 fL Automated Differential Collection Time: 02/14/24 8:35 PM Result Value Ref Range Segs % 70.4 40.6 - 75.7 % Lymphs % 18.0 14.9 - 47.8 % Monos % 9.3 4.2 - 12.6 % Eos % 0.8 0.2 - 5.0 % Basos % 0.7 0.2 - 1.3 % Immature Grans % 0.8 0.1 - 1 % Segs # 6.69 (H) 1.48 - 6.56 10*3/uL Lymphs # 1.71 0.86 - 3.84 10*3/uL Monos # 0.88 0.29 - 0.96 10*3/uL Eos # 0.08 0.00 - 0.46 10*3/uL Basos # 0.07 0.01 - 0.08 10*3/uL Imm Grans # 0.08 (H) 0.01 - 0.07 10*3/uL B-type natriuretic peptide Collection Time: 02/14/24 8:35 PM Result Value Ref Range Natriuretic Peptide B 257 (H) 0 - 100 pg/mL Troponin I High Sensitivity Careset (1st Hr) Collection Time: 02/14/24 9:46 PM Result Value Ref Range HS Troponin I 1 Hour 10 0 - 54 pg/mL HS Troponin I 0 to 1 Hour Delta 2 ECG 12 lead Collection Time: 02/14/24 10:54 PM Result Value Ref Range Ventricular Rate 129 BPM Atrial Rate 159 BPM QRS Duration 86 ms QT/QTc 304 ms QTc Calculation 445 ms R-Garland 73 degrees T-Garland 34 degrees @IMAGESENCORD@ XR hand 3+ views leftNarrative: EXAM: XR HAND 3 OR MORE VIEWS LEFT DATE: 02/15/2024 6:14 AM BOTTOM POLISHER. INDICATION: pain, . COMPARISON: None available. TECHNIQUE: 3 views of the left hand. FINDINGS: * No acute fracture or malalignment is identified.* Moderate osteoarthritic changes of the hand. Assessment of the second digit is limited by overlying radiopaque splint. Osseous demineralization * No acute soft tissue abnormality is identified. Impression: Moderate osteoarthritic changes. No acute fracture within the limitations as above Electronically signed by: Isaac Lemus MD 02/15/2024 08:32 AM BOTTOM POLISHER ECG 12 lead Suspect unspecified pacemaker failure ATRIAL FIBRILLATION WITH A RAPID VENTRICULAR RESPONSE NONSPECIFIC ST SEGMENT ABNORMALITY(IES) ABNORMAL ECG AssessmentDouglas Tano Randall Sr. is a 68 y.o. male with no known PMHX who presented on 02/14/2024 with complaints of worsening SOB, LE edema, CP, and congestion. Admitted for new-onset Afib with RVR with possible new-onset CHF. Assessment & Plan New onset atrial fibrillation (CMS/HCC) (HCC) Started on amiodarone gtt by cardio Also started on PO metoprolol Therapeutic Lovenox for AC Cardio recs appreciated Other heart failure (HCC) IV Lasix as ordered Daily weight and intake output Cardiology following Echocardiogram once HR improved Acute hypoxic respiratory failure (HCC) Continue nasal cannula oxygen to maintain around 92% saturation Wean as tolerated Anticipate improvement with diuresis Morbid obesity (HCC) Poor prognosis factor BMI 40.0-44.9, adult (HCC) Poor prognosis factor Hypertension Improved with diuresis Current DietAdult Diet Heart Healthy VTE prophylaxisenoxaparin - 80 mg/0.8mL DispositionContinue amiodarone gtt, transition to PO per cardio. F/u echo, further management pending results. Eventual DC home in 48-72 hours. Booker Hicks DO02/15/2024 [facility]2025-01-02 18:39:44Scheduled Orders Scheduled Referrals Name Type Priority Associated Diagnoses Orde r Schedule Ambulatory referral to Home Health Outpatient Referral Routine Acute heart failure, unspecified heart failure type (CMS/HCC) (HCC) Moderate aortic stenosis Secondary hypertension Acute respiratory failure with hypoxia and hypercapnia (CMS/HCC) (HCC) Alcohol withdrawal delirium, acute, hyperactive (HCC) Expected: 02/22/2024 (Approximate), Expires: 02/21/2025 Health Maintenance Due Date Last Done Comments CT Colonography 1956 Colonoscopy 1956 Colorectal Cancer Screening 1956 FIT-DNA 1956 FIT 1956 FOBT 1956 Lipid Panel 1956 Medicare Annual Wellness (AWV) 1956 Sigmoidoscopy 1956 Pneumococcal Vaccine: 65+ Ye ars (1 of 2 - PCV) 1962 DTaP/Tdap/Td Vaccines (1 - Tdap) 12/28/1975 Zoster Vaccines (1 of 2) 2006 Respiratory Syncytial Virus (RSV) or >=60 (1 - Risk 60-74 years 1-dose series) 2016 Annual Physical 03/03/2023 03/03/2022 Influenza Vaccine (#1) 2023 HIB Vaccines Aged Out No longer eligi ble based on patient's age to complete this topic HPV Vaccines Aged Out No longer eligi ble based on patient's age to complete this topic Hepatitis A Vaccines Aged Out No long er eligible based on patient's age to complete this topic Hepatitis B Vaccines Aged Out No long er eligible based on patient's age to complete this topic IPV Vaccines Aged Out No longer eligi ble based on patient's age to complete this topic Meningococcal Vaccine Aged Out No marlen rafaela eligible based on patient's age to complete this topic Rotavirus Vaccines Aged Out No longer eligible based on patient's age to complete this topic [id number]44 Diagnosis New onset atrial fibrillation (CMS/HCC) (HCC) - Primary Atrial fibrillation New onset atrial fibrillation (CMS/HCC) (HCC) Atrial fibrillation Acute heart failure, unspeci fied heart failure type (CMS/HCC) (HCC) Anasarca Edema Moderate aortic stenosis Aortic valve disorders Secondary hypertension Other secondary hypertension, unspecified Acute respiratory failure wi th hypoxia and hypercapnia (CMS/HCC) (HCC) Alcohol withdrawal delirium, acute, hyperactive (HCC) Morbid obesity (HCC) Morbid obesity BMI 40.0-44.9, adult (HCC) Hypertension Unspecified essential hypertension Acute respiratory failure wi th hypoxia and hypercapnia (CMS/HCC) (HCC) Other heart failure (HCC) Alcohol withdrawal delirium, acute, hyperactive (HCC) [id number] 18:39:44 [id number] 18:08:06 Patient discharging towards home with family members. Peripheral IV and cardiac monitoring discontinued. All personal belonging of patient with family. Patient awake,alert, and orientd with no complaint at this time. He is taking a shower prior to discharge. [facility]2025-01-02 17:56:02 An informational handout was provided to the patient and family which included instructions that addressed activity level, diet, discharge medications, follow-up appointments, weight monitoring and what to do if symptoms worsen. OM POL[facility] [id number] 16:45:29 Images from the original note were not included. [id number] Living with Atrial Fibrillation: Preventing Stroke Atrial fibrillation (AFib) is the most common abnormal heart rhythm. The heart has two upper chambers called atria and two lower chambers called ventricles. AFib causes the atria to quiver (fibrillate) instead of pumping normally. Blood can then pool in the heart instead of moving in and out as usual. This can cause blood clots to form in the heart. A clot can break free, travel to the brain, and cause a stroke. A stroke can quickly damage the brain. Taking medicine to prevent stroke Your healthcare provider may prescribe a medicine to help prevent blood clots if you have AFib. This type of medicine is called a blood thinner. Blood thinners include: ? Antiplatelet medicines such as aspirin or clopidrogrel ? Anticoagulant medicines such as warfarin, or medicines called direct-acting oral anticoagulants (DOACs). These include dabigatran, rivaroxaban, apixaban, and edoxaban. Risks of blood thinner medicine Blood thinners raise your risk of bleeding. If you take certain blood thinners, you may need to take extra steps to stay healthy. Depending on the blood thinner, you may need regular blood tests to check the levels of medicine in your blood. You?ll need to be careful not to injure yourself. And you may need to watch your diet for foods that affect blood clotting. Tell your doctor if you are or plan to get . Many blood thinners can cause defects or bleeding that may harm your unborn child. If your blood is too thin, you may have symptoms of excess bleeding. Call your healthcare provider right away if you have any of these symptoms: ? Coughing or vomiting blood or other things that look like coffee grounds ? Nosebleed ? Unusual bruising or blood blisters ? Feel sick, weak, faint, or dizzy ? Blood in the urine or stool ? Black stools ? Bleeding more during your periods or between periods ? Bleeding gums ? Headache ? Stomachache Taking the right dose Take the medicine exactly as directed by your healthcare provider. Take it at the same time each day. If you miss a dose, call your provider right away to find out how much to take. Never take a double dose. If you take too much, it can cause too much bleeding. It can cause bleeding you can see on the outside of your body. It can also cause bleeding on the inside of your body that you may not be aware of. Getting your blood tested If you take DOACs, you don't need frequent blood tests. But you may need to have your kidneys checked regularly. Your healthcare provider will discuss this with you. If you take warfarin, you will need to have your blood tested on a regular schedule. This is to make sure you don?t have too much or too little of the medicine in your blood. Too much can cause extra bleeding. Too little may not prevent blood clots from harming you. You may need to visit a hospital or clinic every week to have your blood tested. Or a nurse may come to your home and test your blood. In some cases, you may be able to test your blood at home yourself with a small machine. Talk with your healthcare provider to find out what?s best for you. After the blood test, your healthcare provider may tell you to change your dose of medicine. Watching your diet Warfarin levels can change with your diet. For example, many foods contain vitamin K. Vitamin K helps your blood clot. You don?t need to stop eating foods that have vitamin K. But you do need to keep the amount of them you eat as steady as possible from day to day. Foods high in vitamin K are asparagus, avocado, broccoli, cabbage, kale, spinach, and some other leafy green vegetables. Soybean, canola, and olive oils are also high in vitamin K. Other foods and drinks can affect the way blood thinners work in your body. These include: ? Grapefruit and grapefruit juice ? Cranberries and cranberry juice ? Fish oil supplements ? Garlic, estefania, licorice, and turmeric ? Herbs used in herbal teas or supplements ? Alcohol If any of these items are part of your regular diet, continue using them as you normally would. Don?t make any big changes in your diet without first talking with your healthcare provider. You may also need to limit fats in your diet to 2 to 4 tablespoons a day. Preventing injury Because blood thinners make you bleed more, you?ll need to protect yourself from breaks in the skin. Follow these guidelines: ? Don't go barefoot. Always wear shoes. ? Don't trim corns or calluses yourself. ? Use an electric razor instead of a manual one. ? Use a soft-bristled toothbrush and waxed dental floss. You?ll also need to not do any activities that may cause injury. If you fall or are injured, you could be bleeding inside your body and not know it. Get emergency medical care right away if you fall, hit your head, or have any other kind of injury. Other safety tips While on your medicine: ? Tell all of your healthcare providers that you take a blood thinner for AFib. This includes all of your doctors, dental care providers, and your pharmacist. ? Ask your healthcare provider before taking any new medicines, vitamins, or other supplements. Any of these can cause problems when you take a blood thinner. ? Wear a medical alert bracelet or carry an ID card in your wallet if you will be taking blood thinners for months or longer. ? Keep all appointments for your blood tests. Procedures to prevent stroke Most blood clots that form in the heart occur in a pouch of the left atrium called the appendage. This pouch can often be large and have multiple lobes. Blood often pools and forms clots here. Left atrial appendage closure is a nonsurgical procedure in which a plug is placed at the opening of the left atrial appendage. This closes it off from the rest of the heart. Once the plug has sealed, no blood can enter or leave the pouch. This reduces blood clot formation and stroke risk. It often does not require you to use blood thinners for the long -term except for aspirin. Ask your healthcare provider if you qualify for this type of procedure. Other ways to help prevent stroke Your healthcare provider might give you other advice about how to lower your risk for stroke. Tips include: ? Lower your cholesterol with lifestyle changes or medicine ? Don't smoke ? Get physical activity ? Lose weight if needed ? Eat a heart-healthy diet ? Don't drink too much alcohol Call 911 Call 911 right away if you have symptoms of a stroke. Remember: If you have any of the symptoms below, or if someone you are with has these symptoms, call 911 as soon as possible[address] Never drive yourself or the victim. The ambulance can alert the hospital and start treatment. B.E. F.A.S.T. is an easy way to remember signs of a stroke. When you see these signs, you will know that you need to call 911 fast. B.E. F.A.S.T. stands for: ? B is for balance. Sudden loss of balance or coordination or trouble walking. ? E is for eyes. Vision changes in one or both eyes. ? F is for face drooping. One side of the face is drooping or numb. When the person smiles, the smile is uneven. ? A is for arm weakness. One arm is weak or numb. When the person lifts both arms at the same time, one arm may drift downward. ? S is for speech difficulty. You may notice slurred speech or difficulty speaking. The person can't repeat a simple sentence correctly when asked. ? T is for time to dial 911. If someone shows any of these symptoms, even if they go away, call 911 right away. Make note of the time the symptoms first appeared. Also call 911 right away if any of these occur: ? Sudden confusion ? Unusual or severe headache ? Chest pain ? Trouble breathing ? Uncontrolled bleeding When to call your healthcare provider Call your healthcare provider right away if you have any of these: ? Feel sick, weak, faint or dizzy ? Shortness of breath ? A change in the usual regularity of your heartbeat ? Fatigue ? Fever of 100.4?F or 38?C or higher, or as directed by your healthcare provider ? Symptoms of AFib that are new or getting worse Last Reviewed Date: 2021 00:00:00 ? [id number] [employer]. All rights reserved. This information is not intended as a substitute for professional medical care. Always follow your healthcare professional's instructions. [place] [id number] 16:45:18 Images from the original note were not included. [id number] Discharge Instructions for Atrial Fibrillation You have been diagnosed with an abnormal heart rhythm called atrial fibrillation (AFib). This means your heart?s 2 upper chambers quiver rather than squeeze the blood out in a normal pattern. This leads to an irregular and sometimes rapid heartbeat. Some people will have symptoms such as a flip-flopping heartbeat, chest pain, lightheadedness, or shortness of breath. Other people may have no symptoms at all. AFib is serious because it affects the heart?s ability to fill with blood as it should. Blood clots may form. This increases the risk for stroke. Untreated, it can also lead to heart failure. AFib can be controlled. With treatment, most people lead normal lives. Treatment options Treatment for AFib depends on your age, symptoms, how long you have had it, and other factors. You will have a complete evaluation to find out if you have any abnormalities that caused your heart to go into AFib. This might be blocked heart arteries, heart valve problems, or a thyroid problem. Your doctor will assess your case and discuss choices with you. Treatment choices may include: ? Treating an underlying disorder that puts you at risk for atrial fibrillation. For example, correcting an abnormal thyroid or electrolyte problem, or treating a blocked heart artery. ? Restoring a normal heart rhythm with an electrical shock (cardioversion) or with an antiarrhythmic medicine (chemical cardioversion). ? Using medicine to control your heart rate and rhythm. ? Taking blood-thinning medicines (anticoagulants). These lower the risk for blood clot and stroke. Blood-thinners range from aspirin and clopidogrel to others such as rivaroxaban and warfarin. ? Having a procedure such as left atrial appendage closure. In this procedure, a small pouch in the top of your atrium is blocked off. This pouch is where blood clots often form. The procedure can prevent blood clots and reduce stroke risk without the need for a blood thinner. ? Doing catheter ablation or a surgical maze procedure. These procedures use different methods to create scar tissue in certain areas of heart. This stops the abnormal electrical signals that cause AFib. This may be an option when medicines don't work. It may be used instead of taking a medicine chcf. Your provider may advise other treatment choices. Managing risk factors for stroke and preventing heart failure are important parts of any treatment plan for AFib. Home care ? Take your medicines exactly as directed. Don?t skip doses. ? Work with your healthcare provider to find the right medicines and doses for you. ? Learn to take your own pulse. Keep a record of your results. Ask your provider which pulse rates mean that you need medical attention. Slowing your pulse is often the goal of treatment. Ask your provider if it?s OK for you to use an automatic machine to check your pulse at home. Sometimes these machines don?t count the pulse correctly with AFib. ? Limit how much coffee, tea, cola, and other drinks with caffeine you have. Ask your provider if you should cut out all caffeine. ? Don't take wyve-yvw-tgxyszd medicines that have caffeine in them. Also don't take medicines with pseudoephedrine. ? Let your provider know what medicines you take. These include prescription and gbrs-fbx-npwtawo medicines, as well as any supplements. They interfere with some medicines given for AFib. ? Ask your provider if you can drink alcohol. Some people need to cut out alcohol to better treat AFib. If you are taking blood-thinner medicines, alcohol may interfere with them by increasing their effect. ? Never take stimulants such as amphetamines or cocaine. These drugs can speed up your heart rate and trigger AFib. ? Manage your weight. If you are above your ideal body weight, losing excess pounds can reduce your incidence of AFib. Follow-up care Follow up with your healthcare provider as advised. When to call your healthcare provider Call your healthcare provider right away if you have any of the following: ? Weakness ? Dizziness ? Fainting ? Tiredness (fatigue) ? Shortness of breath ? Chest pain with increased activity ? A change in the usual regularity of your heartbeat, or an unusually fast heartbeat Last Reviewed Date: 2021 00:00:00 ? [id number] [employer]. All rights reserved. This information is not intended as a substitute for professional medical care. Always follow your healthcare professional's instructions. [facility]2025-01-02 16:45:05 Images from the original note were not included. [id number] Discharge Instructions for Heart Failure The heart is a muscle that pumps oxygen-rich blood to all parts of the body. When you have heart failure, the heart is not able to pump as well as it should. Blood and fluid may back up into the lungs. Some parts of the body don?t get enough oxygen-rich blood to work normally. These problems lead to the symptoms of heart failure. Heart failure can occur because of an injury to the heart or from natural processes. You can control symptoms of heart failure with some lifestyle changes and by following your doctor's advice. Activity Ask your healthcare provider about an exercise program. Simple activities such as walking or gardening can help. Exercising most days of the week can make you feel better. Don't be discouraged if your progress is slow at first. Rest as needed. Stop activity if you get symptoms such as chest pain, lightheadedness, or shortness of breath. Find activities that you enjoy. Examples might be brisk walking, dancing, swimming, and gardening. These will help you stay active and strengthen your heart. Ask your healthcare provider about cardiac rehab. This is a program that helps you to exercise safely. Diet Follow a heart healthy diet. And make sure to limit the salt (sodium) in your diet. Salt causes your body to hold water. This makes your heart work harder because there is more fluid for the heart to pump. Limit your salt as directed by your healthcare provider by doing the following: ? Limit canned, dried, packaged, and fast foods. ? Don't add salt to your food. ? Season foods with herbs instead of salt. ? Watch how much liquids you drink. Drinking too much can make heart failure worse. Talk with your healthcare provider about how much you should drink each day. ? Limit the amount of alcohol you drink. It may harm your heart. Women should have no more than 1 drink a day. Men should have no more than 2 a day. ? Ask that your meals have no added salt when you eat out. ? Talk with your healthcare provider before using salt substitutes. They often have potassium in them. This may not be good for your health. This will depend on how well your kidneys are working and what medicines you?re taking. Some people need extra potassium. Others don?t. Tobacco It's important to quit if you smoke. Smoking increases your chances of having a heart attack by harming the blood vessels that provide oxygen to your heart. This makes heart failure worse. Quitting smoking is the number one thing you can do to improve your health. Enroll in a stop-smoking program to improve your chances of success. Talk with your healthcare provider about medicines or nicotine replacement therapy. Also ask your healthcare provider about smoking cessation support groups. Medicine Take your medicines exactly as prescribed. Learn the names and purpose of each of your medicines. Keep an accurate medicine list and current dosages with you at all times. Don't skip doses. If you miss a dose of your medicine, take it as soon as you remember. If you miss a dose and it's almost time for your next dose, just wait and take your next dose at the normal time. Don't take a double dose. If you are unsure, call your doctor's office. Make sure not to mix up your medicines or forget what you've taken the same day. Refill your prescriptions before you run out of medicine. Talk with your healthcare provider if you have trouble with the cost of your medicines. Weight monitoring Weigh yourself every day. A sudden weight gain can mean your heart failure is getting worse. Weigh yourself at the same time of day and in the same kind of clothes. Ideally, weigh yourself first thing in the morning after you empty your bladder, but before you eat breakfast. Your healthcare provider will show you how to track your weight. They will also tell you when you should call if you have a sudden, unexpected increase in your weight. In general, your healthcare provider may ask you to report if your weight goes up by more than 2 pounds in 1 day, 5 pounds in 1 week, or whatever weight gain you were told by your doctor. This is a sign that you are retaining more fluid than you should be. Clues to weight gain include checking your ankles for swelling, or noticing you are short of breath when you lie down. Follow-up care Have a follow-up appointment as instructed. Depending on the type and severity of heart failure you have, you may need follow-within 7 days from hospital discharge. Keep appointments for checkups and lab tests that are needed to check your medicines and condition. Recognize that your health and even survival depend on you following your provider's advice. Symptoms Heart failure can cause a variety of symptoms. They include: ? Shortness of breath ? Trouble breathing at night, especially when you lie down ? Swelling in the legs and feet or in the belly (abdomen) ? Becoming easily tired ? Irregular or rapid heartbeat ? Weakness or lightheadedness ? Swelling of the neck veins It's important to know what to do if symptoms get worse or if you develop signs of worsening heart failure. Keep track of how you feel each day. Report any changes to your healthcare provider. When to call your healthcare provider Call your healthcare provider right away if you have any of these signs of worsening heart failure: ? Sudden weight gain. This means more than 2 pounds in 1 day or 5 pounds in 1 week, or whatever weight gain you were told to report by your doctor. ? Trouble breathing not related to being active ? New or increased swelling of your legs or ankles ? Swelling or pain in your abdomen ? Breathing trouble at night. This means waking up short of breath or needing more pillows to breathe. ? Frequent coughing that doesn't go away ? Feeling much more tired than usual Call 911 Call 911 right away if you have: ? Severe shortness of breath, such that you can't catch your breath even while resting ? Severe chest pain that does not resolve with rest or nitroglycerin ? Rawson, foamy mucus with cough and shortness of breath ? An ongoing rapid or irregular heartbeat ? Passing out or fainting ? Stroke symptoms such as sudden numbness or weakness on one side of your face, arm, or leg or sudden confusion, trouble speaking or vision changes Last Reviewed Date: 2021 00:00:00 ? [id number] [employer]. All rights reserved. This information is not intended as a substitute for professional medical care. Always follow your healthcare professional's instructions. [facility]2025-01-02 16:45:00 Images from the original note were not included. [id number] Alcohol Withdrawal Alcohol withdrawal often starts after prolonged heavy drinking, and then you suddenly stop drinking. Or you cut down on your alcohol use. It is not one thing. It is a complex combination of signs and symptoms that often define a certain problem or condition. ? Alcohol withdrawal is potentially life-threatening. It is a medical emergency. ? It can start as early as a couple of hours after your last drink. Or it may take 1 to 3 days to develop. ? It can last from days to a week or more. ? It can worsen very quickly. Signs and symptoms There are several stages of alcohol withdrawal. But they overlap, as do their signs and symptoms. In the earlier stages, it most often includes: ? Anxiety ? Shakiness ? Nausea and vomiting ? Sweating ? Insomnia ? Headaches ? Fever ? Mood swings, irritability, agitation, restlessness Delirium tremens (DTs) DTs is a severe and life-threatening complication of alcohol withdrawal. In people who chronically use alcohol and abruptly stop, DTs can start as early as 48 hours after the last alcohol intake. The symptoms can last up to 5 days and are potentially life-threatening. Medical care should be sought. Symptoms of DTs include: ? Sudden and severe mental or nervous system changes ? Uncontrollable tremors ? Severe disorientation, confusion, hallucinations ? Heart racing, or irregular heartbeat ? High blood pressure ? Seizures ? Possible coma and Home care ? You'll need plenty of rest and fluids over the next several days. Eat regular meals and drink plenty of fluids to prevent dehydration. Don't drink any more alcohol. ? During this time, it is best that you're not alone. Stay with family or friends who can help and support you. You can also admit yourself to a residential detox program. ? Don't drive until all symptoms are gone and you are feeling better. If you've had a seizure, don't drive until you've been examined by a healthcare provider. ? If you were given sedative medicine to reduce your symptoms, don't take it more often than prescribed. Never take it with alcohol. Follow-up care Once you've gone through the withdrawal symptoms, you've fought half of the [place]. To avoid the risk of going back to your past drinking pattern, it's vital that you get follow-up support and treatment. ? Alcoholics Anonymous (AA) offers support through a self-help fellowship. There are no dues or fees. Search the Internet or go to the AA website at www.aa.org to find a local meeting place. ? Al-Anon offers support to families of alcohol users. Go to the Al-Anon website at www.al-anon.org . ? FindTreatment is a confidential and anonymous resource for people seeking treatment for mental and substance use disorders. Go to https://findtreatment.gov/. ? Residential alcohol detox programs are available. Search the internet for treatment centers in your area. Call 911 Call 911 if any of these occur: ? Seizure ? Trouble breathing or slow, irregular breathing ? Chest pain ? Sudden weakness on a side of the body or sudden trouble speaking ? Heavy bleeding or vomiting blood ? Very drowsy or trouble awakening ? Fainting or loss of consciousness ? Rapid heart rate When to get medical advice Call your healthcare provider right away if any of these occur: ? Severe shakiness ? Hallucinations ? Fever over 100.4? F (38.0? C) ? Headache, confusion, extreme drowsiness, inability to awaken ? Increasing upper abdominal pain ? Repeated vomiting Last Reviewed Date: 2024 00:00:00 ? [id number] [employer]. All rights reserved. This information is not intended as a substitute for professional medical care. Always follow your healthcare professional's instructions. [facility]2025-01-02 14:57:37 Images from the original note were not included. [id number] How to Quit Smoking Smoking is a hard habit to break. About half of all people who've ever smoked have been able to quit. Most people who still smoke want to quit. Here are some of the best ways to stop smoking. Keep in mind how quitting can help your health The health benefits of quitting start right away. They keep improving the longer you go without smoking. Knowing this can help inspire you to stay on track. These benefits occur at any age. Quitting is a good choice whether you are 17 or 70. Some of the health benefits after your last cigarette include: ? After 20 minutes: Your blood pressure and pulse return to normal. ? After 8 hours: Your oxygen levels return to normal. ? After 2 days: Your ability to smell and taste start to get better as damaged nerves regrow. ? After 2 to 3 weeks: Your circulation and lung function get better. ? After 1 to 9 months: You have less coughing, congestion, and shortness of breath. You feel less tired. ? After 1 year: Your risk of heart attack goes down by 50%. ? After 5 years: Your risk of lung cancer goes down by 50%. Your risk of stroke becomes the same as a nonsmoker?s. What about going cold turkey? You may have heard about quitting "cold turkey." This means stopping all at once. Going cold turkey is an option. But it's not the most successful way to quit smoking. Trying to cut back slowly often doesn't work as well either. This may be because it continues the habit of smoking. You may also inhale more smoke while smoking fewer cigarettes. This leads to the same amount of nicotine in your body. But quitting cold turkey or cutting back slowly aren't your only choices. Using tobacco cessation medicines with behavioral counseling may be a better choice to help you succeed. Talk with your provider about your choices for support while you quit smoking. Get support Support programs can be a big help, especially for heavy smokers. These groups offer information, ways to change behavior, and peer support. Ask your provider for some resources. Here are some other ways to find support: ? Smokefree.gov at www.smokefree.gov or 479-QXFO-FYR (265-468-8286) ? [place] [employer] at www.lung.org/quit-smoking or 400-452-7416 ? [place] [employer] at www.cancer.org/quitsmoking or 023-679-9423 Support at home is important too. Family and friends can offer praise and reassurance. Ask your friends who smoke to support your decision. Try to stay away from situations that trigger the desire to smoke. This may include smoking with your morning coffee. Or smoking after a meal. Create new routines to help decrease your cravings. If the smoker in your life finds it hard to quit, encourage them to keep trying. Remind them of all of the benefits to themselves and people they love. Try upkp-jpx-uusilup nicotine replacements Nicotine replacement therapy may make it easier to quit. You can buy some aids without a prescription. These include a nicotine patch, gum, and lozenges. But it's best to use these under the care of your healthcare provider. The skin patch gives a steady supply of nicotine. Nicotine gum and lozenges give short-time doses of low levels of nicotine. Both methods reduce the craving for cigarettes. If you have upset stomach (nausea), vomiting, dizziness, weakness, or a fast heartbeat, stop using these products and see your provider. Ask about prescription medicine After reviewing your smoking patterns and past attempts to quit, your provider may offer a prescription medicine. These include bupropion, varenicline, a nicotine inhaler, or nasal spray. Each has advantages and side effects. Your provider can go over these with you. Keep trying Most smokers try to quit many times before they succeed. It?s important not to give up. Last Reviewed Date: 2022 00:00:00 ? [id number] [employer]. All rights reserved. This information is not intended as a substitute for professional medical care. Always follow your healthcare professional's instructions. [facility] [id number] 14:57:04 Images from the original note were not included. 14 Heart-Healthy Diet Five Tips to Better Health A heart-healthy diet is designed to protect your heart from further damage through long-term diet and lifestyle changes. Along with your medication and exercise, a heart-healthy diet can help reduce your risk for heart-related problems. The heart-healthy meal plan is based on limiting total fat, saturated fat, cholesterol and sodium while increasing your intake of fiber and omega-3 fatty acids (good fats). When making changes in your diet: "Take Five" 1. Limit saturated fat and trans fats. Remember DART to identify common sources: Dairy (e.g., whole milk, cream, butter and regular cheese) - Animal fat (e.g., steak or chicken with skin) - Restaurant dishes, some fried foods - Treats (chocolate, cookies and other baked goods, and products with "partially hydrogenated oils" in the ingredient list) 2. Limit the amount of cholesterol you eat to less than 200 mg (milligrams) per day. Foods high in cholesterol include egg yolks, fatty meat, whole milk and regular cheese. 3. Cut back on sodium by getting rid of the saltshaker and avoiding high-sodium foods like deli meats, frozen meals, condiments, canned foods and other convenience items. Check the label and choose foods with no more than 140 mg of sodium per serving. 4. Get more fiber. Aim for 20 to 30 grams of fiber per day from sources like whole grains, fruit, vegetables, and beans. 5. Eat approximately 4 ounces of fish twice a week to get more omega-3 fatty acids. [place], cod, trout and tuna are high in omega-3s. Try low-sodium canned tuna for a less expensive option. Other Heart-Healthy diet information: ? Check with your doctor before drinking ANY alcohol. ? Use caffeine (coffee, tea, soft drinks) in moderation. Caffeine may affect your blood pressure and heart health. ? When dining out: o Ask for nutrition information to help stay on track with your heart-healthy diet. o Ask for sauces and dressings on the side. ? Read the Nutrition Facts label to be sure you are following the Heart-Healthy Guidelines. Heart-Healthy Diet Food Group Avoid Better Choices Milk/Dairy Whole milk Regular or processed cheese products Cream Nonfat (skim) or 1% milk Cheeses low in saturated fat and sodium Nonfat or low-fat yogurt Meat/ Protein Regular ground meats Deep-fried meats Fatty cuts such as ribeye or brisket White meat poultry without sl? Fresh fish or low-sodium canned fish Lean beef cuts: round steak, tenderloin, sirloin tips Vegetable protein foods, like beans, veggie burgers or tofu Ground sirloin or round Vegetables & Fruits Fried fruit such as plantain or fried fruit pies Fruits served with butter or cream Vegetables canned with sodium Fresh fruits and vegetables Frozen fruits and vegetables, no added sauces, gravies or salted seasonings Bread & Cereals High-fat bakery products, such as doughnuts, biscuits or croissants Snacks made with partially hydrogenated oils, like cheese puffs Products with whole grains as the first ingredient Breads with at least 2 grams of fiber per serving Cereals that contain at least 5 grams of fiber per serving Snacks like air-popped popcorn, low-salt pretzels Fats Butter Lard Partially hydrogenated oils Monounsaturated fats such as olive, grapeseed, or canola oil Whipped spreads Spreads with zero trans fat Reading a Food Label Reference: Academy of Nutrition and Dietetics, Adult Nutrition Care Manual, 2012. If you would like to obtain more information on a heart-healthy diet, please contact Outpatient Nutrition Services by calling [phone]. [id number] 10/02 [facility]2025-01-02 09:00:00 The patient is Moderately Stable - Low risk of patient condition declining or worsening The patient's goals for the shift include rest The clinical goals for the shift include wean O2, remove hoang Problem: Knowledge Deficit Goal: Patient/family/caregiver demonstrates understanding of disease process, treatment plan, medications, and discharge instructions Outcome: Progressing Problem: Hemodynamic Status Goal: Patient's vitals signs are stable Outcome: Progressing Problem: Excessive Fluid Volume Goal: Fluid and electrolyte balance are achieved/maintained Outcome: Progressing Problem: Inadequate Gas Exchange Goal: Patient is adequately oxygenated and ventilation is improved Outcome: Progressing Goal: Nutritional status is improving Outcome: Progressing Problem: Activity Intolerance/Impaired Mobility Goal: Mobility/activity is maintained at optimum level for patient Outcome: Progressing Goal: Maintains or returns to baseline bowel function Outcome: Progressing Flowsheets (Taken 02/22/2024 0800) Maintains or returns to baseline bowel function: Assess bowel function Goal: Maintains or returns to baseline bladder function Outcome: Progressing Problem: Nutrition Goal: Nutritional status is improving Outcome: Progressing [facility]2025-01-02 03:09:27 The patient is Moderately Stable - Low risk of patient condition declining or worsening The patient's goals for the shift include rest The clinical goals for the shift include wean O2 [facility]2025-01-01 23:24:41 The patient is Moderately Stable - Low risk of patient condition declining or worsening The patient's goals for the shift include Able to walk without having SOB The clinical goals for the shift include no SOB and ambulate [facility]2025-01-01 08:21:03 Problem: Knowledge Deficit Goal: Patient/family/caregiver demonstrates understanding of disease process, treatment plan, medications, and discharge instructions Outcome: Progressing Problem: Hemodynamic Status Goal: Patient's vitals signs are stable Outcome: Progressing Problem: Excessive Fluid Volume Goal: Fluid and electrolyte balance are achieved/maintained Outcome: Progressing Problem: Inadequate Gas Exchange Goal: Patient is adequately oxygenated and ventilation is improved Outcome: Progressing Goal: Nutritional status is improving Outcome: Progressing Problem: Activity Intolerance/Impaired Mobility Goal: Mobility/activity is maintained at optimum level for patient Outcome: Progressing Goal: Maintains or returns to baseline bowel function Outcome: Progressing Goal: Maintains or returns to baseline bladder function Outcome: Progressing Problem: Nutrition Goal: Nutritional status is improving Outcome: Progressing [facility]2025-01-01 01:59:20 The patient is Moderately Stable - Low risk of patient condition declining or worsening The patient's goals for the shift include Able to walk normal like before. The clinical goals for the shift include No short of breath on ambulation [facility]2024-12-31 18:50:50 The patient is Moderately Stable - Low risk of patient condition declining or worsening The patient's goals for the shift include comfort The clinical goals for the shift include stable vitals Over the shift, the patient did not make progress toward the following goals. Barriers to progression include noncompliance at home. Recommendations to address these barriers include education. [id number] 03:33:53 The patient is Moderately Stable - Low risk of patient condition declining or worsening The patient's goals for the shift include comfort The clinical goals for the shift include stable vitals [facility]2024-12-30 21:32:17 The patient is Moderately Stable - Low risk of patient condition declining or worsening The patient's goals for the shift include comfort The clinical goals for the shift include stable vitals [facility]2024-12-30 03:27:58 The patient is Moderately Stable - Low risk of patient condition declining or worsening The patient's goals for the shift include comfort The clinical goals for the shift include stable vitals [place] [id number] 20:33:22 The patient is Moderately Unstable - Medium risk of patient condition declining or worsening The patient's goals for the shift include comfort, pain management The clinical goals for the shift include stable vitals [facility]2024-12-29 13:27:13 The patient is Moderately Stable - Low risk of patient condition declining or worsening The patient's goals for the shift include Safety and ample rest The clinical goals for the shift include Safety and no agitation Problem: Knowledge Deficit Goal: Patient/family/caregiver demonstrates understanding of disease process, treatment plan, medications, and discharge instructions Outcome: Ongoing Problem: Hemodynamic Status Goal: Patient's vitals signs are stable Outcome: Ongoing Problem: Excessive Fluid Volume Goal: Fluid and electrolyte balance are achieved/maintained Outcome: Ongoing Problem: Inadequate Gas Exchange Goal: Patient is adequately oxygenated and ventilation is improved Outcome: Ongoing Goal: Nutritional status is improving Outcome: Ongoing Problem: Activity Intolerance/Impaired Mobility Goal: Mobility/activity is maintained at optimum level for patient Outcome: Ongoing Goal: Maintains or returns to baseline bowel function Outcome: Ongoing Goal: Maintains or returns to baseline bladder function Outcome: Ongoing Problem: Nutrition Goal: Nutritional status is improving Outcome: Ongoing [facility]2024 14:06:04 The patient is Moderately Unstable - Medium risk of patient condition declining or worsening The patient's goals for the shift include Safety and ample rest The clinical goals for the shift include Safety and no agitation Over the shift, the patient did not make progress toward the following goals. Barriers to progression include patient agitated. Recommendations to address these barriers include medications for withdrawal. [facility]2024 07:39:37 ACTUARY CLERK called at 0700 patient was reported to be hypoxic in the 60s and difficult to arouse by rn shift mgr nurse, Jeannette. When I arrived for bedside shift report, patient was on a NRB mask with saturations at 98%. His breathing was shallow, tachypneic, lethargic and difficult to arouse. ACTUARY CLERK arrived and ordered ABGs, a chest x-ray, lab was called to draw morning labs and a BG was obtained. Patient is unable to take PO meds at this time due to his lethargic state. Dr. Tarango notified of patient's current issues as well as attending, Dr. Hicks. [facility]2024 07:21:51 Called ACTUARY CLERK, pt difficult to wake up and desatting in the 60s in 3/L NC. Placed in O2 non rebreather mask, now O2 sat is 99. BP 126/76 HR 107, denies chest pain, a&ox2. ACTUARY CLERK, kathleen mai nurse Lucia and family at bedside. Hand off report to day shift. OM POLISHER [facility]2024 03:32:24 The patient is Moderately Unstable - Medium risk of patient condition declining or worsening The patient's goals for the shift include Knowing discharge plans The clinical goals for the shift include More output, better heart rate control Problem: Knowledge Deficit Goal: Patient/family/caregiver demonstrates understanding of disease process, treatment plan, medications, and discharge instructions Outcome: Ongoing Problem: Activity Intolerance/Impaired Mobility Goal: Mobility/activity is maintained at optimum level for patient Outcome: Ongoing Problem: Inadequate Gas Exchange Goal: Patient is adequately oxygenated and ventilation is improved Outcome: Ongoing [facility]2024 03:13:56 At 00:00 pt started getting agitated, paranoid with mild hallucinations, uncooperative, questions medications given prior, adamant in getting out of bed and is refusing everything. Daughter stated that the pt is an alcoholic and last alcohol intake was before getting admitted. [facility] protocol initiated for possible withdrawal and orders received. At 1:30 security was called both for patient and staff safety during administration of medication. Order given for pt's condition, explained pt state and family's consented. Charge nurse, family members and security personnel all present at bedside during the situation. At 1:50am pt is back on bed resting comfortably. All needs attended and all questions answered. [facility]2024-12-26 15:33:55 The patient is Moderately Unstable - Medium risk of patient condition declining or worsening The patient's goals for the shift include Knowing discharge plans The clinical goals for the shift include More output, better heart rate control [facility]2024-12-26 01:10:32 Pt received from ED. Pt is AOx4 on 4L nasal cannula. Pt is Afib up to HR 140s on tele monitor on exertion. Pt is currently resting quietly bed with no complaints of pain pain nor distress. Upon doing admission questionnaire, pt reports he has no home medications nor does he have a pharmacy. [place] [id number] 01:04:46 The patient is Moderately Stable - Low risk of patient condition declining or worsening The patient's goals for the shift include get rid of swelling The clinical goals for the shift include monitor I/O Over the shift, the patient did not make progress toward the following goals. Barriers to progression include fluid overload. Recommendations to address these barriers include lasix diuresis. [facility]2024-12-25 22:56:08 Advance Care Planning Note Discussion Date: 02/14/24 Discussion Participants: Patient The patient wishes to discuss Advance Care Planning today and the following is a brief summary of our discussion. Patient Capacity The patient has full capacity and wishes to be full code. Active Health Care Agents There are no active Health Care Agents on file. Advance Care Planning Documents Document Type Status Effective Date Expiration Date Received On Description Advance Directives and Living Will Not Received Power of Digital Media Analyst Not Received Communication of Medical Status/Prognosis: Fair Communication of Treatment Goals/Options: Discussed Samm Rivera MD 02/14/2024 10:56 PM [facility]2024-12-25 20:01:00 Associated Order(s): ECG 12 lead History of Present Illness: Chief Complaint: Patient presents with Shortness of Breath Pt here for c/c of shortness of breath x5 days that worsened this morning and chest pain with breathing. Pt stated that he has congestion but is not able to cough it up. Denies any fevers. No pmhx. Chest Pain This is a 68-year-old male patient no significant previously reported medical history presenting to this facility with complaints of worsening shortness of breath over the course of the last 5 days. Further questioning reveals he has had significant weight gain, abdominal distention, and a sensation of a cough that is worse at night especially laying flat. Denies fevers. Patient History No past medical history on file. No past surgical history on file. No family history on file. Social History: Tobacco Use Smoking status: Never Smokeless tobacco: Not on file Substance Use Topics Alcohol use: Not on file Drug use: Not on file Review of Systems: Review of Systems Constitutional: Negative for chills and fever. HENT: Negative for ear pain and sore throat. Eyes: Negative for pain and visual disturbance. Respiratory: Positive for cough and shortness of breath. Cardiovascular: Positive for leg swelling. Negative for chest pain and palpitations. Gastrointestinal: Positive for abdominal distention. Negative for abdominal pain and vomiting. Genitourinary: Negative for dysuria and hematuria. Musculoskeletal: Negative for arthralgias and back pain. Skin: Negative for color change and rash. Neurological: Negative for seizures and syncope. All other systems reviewed and are negative. Physical Exam: Vitals and nursing note reviewed. Constitutional: General: He is not in acute distress. Appearance: He is well-developed. HENT: Head: Normocephalic and atraumatic. Eyes: Conjunctiva/sclera: Conjunctivae normal. Cardiovascular: Rate and Rhythm: Normal rate. Rhythm irregular. Heart sounds: No murmur heard. Pulmonary: Effort: Pulmonary effort is normal. Tachypnea present. No respiratory distress. Breath sounds: Examination of the right-lower field reveals rales. Examination of the left-lower field reveals rales. Decreased breath sounds and rales present. Abdominal: Palpations: Abdomen is soft. Tenderness: There is no abdominal tenderness. Musculoskeletal: General: No swelling. Cervical back: Neck supple. Skin: General: Skin is warm and dry. Capillary Refill: Capillary refill takes less than 2 seconds. Neurological: Mental Status: He is alert. Psychiatric: Mood and Affect: Mood normal. Triage Vitals: BP: (!) 154/103, Heart Rate: (!) 105, Temp: 37 ?C (98.6 ?F), Resp: 22, SpO2: (!) 86 %, Height: 180.3 cm (5' 11"), Weight: 136 kg (300 lb) Last Recorded Vitals: BP: (!) 154/103, Heart Rate: (!) 105, Temp: 37 ?C (98.6 ?F), Resp: 22, SpO2: (!) 86 %, Height: 180.3 cm (5' 11"), Weight: 136 kg (300 lb) Procedures Performed: ECG 12 lead Performed by: Hi Hill MD Authorized by: LINDA Orellana ECG interpreted by ED Physician in the absence of a photography coordinator: yes Interpretation: Interpretation: abnormal Details: 14 February 2024, 20: 09 Quality: Tracing quality: Limited by artifact Rate: ECG rate: 129 ventricular ECG rate assessment: tachycardic Rhythm: Rhythm: atrial fibrillation QRS: QRS axis: Normal ST segments: ST segments: Non-specific T waves: T waves: non-specific Comments: EKG represents atrial fibrillation with rapid ventricular response with ventricular rate of 129. There is a large amount of artifact present however still able to identify underlying rhythm of atrial fibrillation. ED Course : ED Course: as of 02/14/242247Feb 14, [id number] I spoke with the inpatient medical team Dr. Rivera who agrees with the management undertaken thus far as well as plan for admission. [HS] ED Course: User Index [HS] Hi Hill MD Diagnoses as of 02/14/242247 New onset atrial fibrillation (CMS/HCC) (HCC) Acute heart failure, unspecified heart failure type (CMS/HCC) (HCC) Anasarca Disposition: Medical Decision Making This is a 68-year-old male patient no significant previously reported medical history presenting to this facility with complaints of worsening shortness of breath over the course of the last 5 days. Further questioning reveals he has had significant weight gain, abdominal distention, and a sensation of a cough that is worse at night especially laying flat. Denies fevers. -I have performed an external chart review/discussion with available information sources which indicate -no significant external charting information available, I have utilized nursing documentation in order to formulate a medical management plan additionally I have utilized all available resources including prior labs and imaging if within the system, in order to guide my work-up. -Labs interpreted by me contemporaneously with patient care: Labs Reviewed BASIC METABOLIC PANEL - Abnormal Glucose Lvl 102 (*) BUN 13 Creatinine Lvl 1.00 Sodium Lvl 135 (*) Potassium Lvl 4.2 Chloride Lvl 96 (*) CO2 Lvl 33.3 (*) Anion Gap 9.9 (*) Calcium Lvl 8.9 eGFR 82 COMPLETE BLOOD COUNT - Abnormal WBC 9.51 RBC 4.94 NRBC % 0.0 Hgb 15.8 Hct 49.9 MCV 101.0 (*) MCH 32.0 MCHC 31.7 RDW - SD 53.4 (*) Plt Count 164 MPV 10.3 AUTOMATED DIFFERENTIAL - Abnormal Segs % 70.4 Lymphs % 18.0 Monos % 9.3 Eos % 0.8 Basos % 0.7 Immature Grans % 0.8 Segs # 6.69 (*) Lymphs # 1.71 Monos # 0.88 Eos # 0.08 Basos # 0.07 Imm Grans # 0.08 (*) B-TYPE NATRIURETIC PEPTIDE - Abnormal Natriuretic Peptide B 257 (*) CREATINE KINASE (CK TOTAL) - Normal CK Total 119 TROPONIN I HIGH SENSITIVITY CARESET (BASELINE) - Normal HS Troponin I Baseline 8 COMPLETE BLOOD COUNT W/DIFF AND PLATELET Narrative: The following orders were created for panel order Complete Blood Count w/Diff and Platelet. Procedure Abnormality Status --------- ------ Complete Blood Count[[id number]] Abnormal Final result Automated Differential[] Abnormal Final result Please view results for these tests on the individual orders. TROPONIN I HIGH SENSITIVITY CARESET Narrative: The following orders were created for panel order Troponin I High Sensitivity Careset. Procedure Abnormality Status --------- ------ Troponin I High Sensitiv...[[id number]] Normal Final result Troponin I High Sensitiv...[[id number]] Final result Please view results for these tests on the individual orders. TROPONIN I HIGH SENSITIVITY CARESET (1ST HR) -Imaging shows: XR chest 1 view Final Result Cardiomegaly with mild pulmonary edema pattern and small pleural effusions. Electronically signed by: Clark Wang MD 02/14/2024 08:50 PM [facility] -Per my independent interpretation of studies -elevated BNP which is likely fictitiously low due to obesity -Diagnostic tests considered but not ordered -echocardiogram however will likely be accomplished in house. -Discussions of management -68-year-old male presenting for worsening shortness of breath. Patient admittedly does not take good care of of himself medically. Within the emergency department found to have acute hypoxemic respiratory failure requiring oxygen supplementation. Additionally anasarca present. New onset atrial fibrillation. I spoke with the inpatient medical team Dr. Rivera who agrees with the management undertaken thus far as well as plan for admission. Additionally I have spoken to Dr. Tarango with cardiology was agreed to evaluate the patient for additional management workup. -Social determinants of health that affect care: ____ low income ____ unemployed ____ food insecure ____ unreliable transportation ____ low health literacy ____ non resourced (no health insurance) ____ language barriers ____ incarceration ____ substance abuse/addiction/alcoholism -Shared decision making -we discussed outpatient management as well as inpatient management however their diagnosis and presentation is not appropriate for outpatient management. They will be brought into the hospital for additional management and work-up. On exam, patient exhibited the findings above and labs were ordered as above. Treatment plan explained to patient. All questions addressed. Will continue to monitor patient condition while in the treatment room. Reexamination/ Reevaluation Reevaluation immediately prior to admission, patient remains appropriate for admission location. Impression and Plan Diagnoses acute heart failure, anasarca, new onset atrial fibrillation Plan Condition: Appropriate for admission location Disposition: Admitted Prescriptions: N/A Patient was given the following educational materials: N/A Follow up with: N/A Counseled: Patient, Regarding diagnosis, Regarding diagnostic results, Regarding treatment plan, Patient indicated understanding of plan and instructions. Hi Hill MD ED Physician [id number] Amount and/or Complexity of Data Reviewed Labs: ordered. Risk Prescription drug management. Scoring Tools Hi Hill MD 02/14/24 1941 [facility]2024-03-12 13:16:12 Chief Complaint Patient presents with Fall Follow up from fall 2 months ago. He did not go to the ER. Left hand pain and swelling. Destiny Crawford MA II [facility]
[2024-11-13 12:19] LABS: Absolute Lymphocytes (CBC) 1.5 K/uL (0.7-4.9); Hematocrit 46.2 % (39.6-49.0); Hemoglobin 14.8 g/dL (13.6-17.9); MCH 29.3 pg (27.0-35.0); MCHC 32.0 g/dL (32.0-36.0); MCV 91.6 fL (80-100); MPV 8.4 fL (7.6-11.3); Nucleated RBC Absolute Count 0.1 (0-0); Nucleated Red Blood Cells % 1.0 % (0-0); RBC Red Blood Cell Count 5.05 M/uL (4.33-5.43); White Blood Count 5.80 thou/uL (4.3-10.9)
[2024-11-13 13:07] LABS: ALT/SGPT 51.0 U/L (16-61); AST/SGOT 68.0 U/L (15-37); Albumin 3.1 g/dL (3.4-5.0); Albumin/Globulin Ratio 0.6 (1.1-1.8); Alkaline Phosphatase 118.0 U/L (45-117); Anion Gap 7.8 mEq/L (5.0-15.0); BUN Blood Urea Nitrogen 21.0 mg/dL (7-18); Bilirubin Indirect, Calculated 1.3 mg/dL (0.2-0.8); Globulin 5.1 g/dL (2.3-3.5); Glucose Level 83.0 mg/dL (74-106); Magnesium 2.2 mg/dL (1.6-2.4); NT PRO-BNP 7982.0 pg/mL (<125); Potassium 4.8 mEq/L (3.5-5.1); Thyroid Stimulating Hormone 4.95 uIU/mL (0.358-3.740); Troponin High Sensitivity 8.2 pg/mL (<58.9)
[2024-11-13 13:20] LABS: PT Prothrombin Time 98.3 SECONDS (10-13.0)
[2024-11-13 13:23] LABS: Protime INR 9.28
[2024-11-13 14:11] LABS: Blood Morphology Comment NOT SEEN (NOT SEEN); White Blood Cell Scan OK (OK)
--- NOTE | 2024-11-13 14:31 | RAD REPORT ---
EXAMINATION: ONE VIEW CHEST XR CLINICAL INDICATION: Male, 68 years old.,SOB TECHNIQUE: Frontal chest projection is submitted. Examination is limited by patient positioning and t echnique. COMPARISON: No prior exam. FINDINGS: The lungs are suboptimally inflated which limits evaluation. Perihilar hazy opacities and central int erstitial prominence particularly on the right. No pneumothorax or sizable effusion. The heart is moderately enlarged in size. Mediastinal contours are unremarkable. IMPRESSION: Findings suggestive of pulmonary edema, could be of cardiogenic origin.
[2024-11-13] MEDS ORDERED: IPRATROPIUM BROM 0.5MG/2.5ML ONE (14:33)
[2024-11-13] MEDS ORDERED: PANTOPRAZOLE 40 MG INJ ONE (14:34)
[2024-11-13] MEDS ORDERED: LEVALBUTEROL 1.25 MG/3 ML NEB ONE (14:34)
[2024-11-13] MEDS ORDERED: FUROSEMIDE 40 MG/4 ML VIAL ONE ×2 (14:34→18:20)
--- NOTE | 2024-11-13 14:43 | ER ---
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 RR > 20 per min. HR > 90 ss bpm. Does the patient have a suspected source of infection? No. Patient's initial sepsis screen is negative. Risk Assessment: Do you want to hurt yourself or someone else? Patient reports no desire to harm self or others. 11:58 Acuity: TRACI 2 ss 11:59 Chief complaint: EMS states: Home Health nurse called stating that patient was ss hallucinating and had fast heart rate. EMS digital music instructor states that they were called out to pt's residence on and Monday and pt refused transport to ER for same complaints today. HR reportedly in 140's O2 on RA was 81%. Coronavirus screen: Client denies travel out of the [place] in the last 14 days. Ebola Screen: Patient denies exposure to infectious person. Patient denies travel to an Ebola-affected area in the 21 days before illness onset. Onset of symptoms is unknown. 11:59 Method Of Arrival: EMS: [facility] 12:08 Care prior to arrival: IV initiated. 22 GA, in the left antecubital area. ss Historical: - Allergies: 12:02 No Known Allergies; ss - Home Meds: 12:02 Amiodarone [Active]; Bumetanide [Active]; Digoxin Oral [Active]; Folic Acid Oral ss [Active]; Furosemide Oral [Active]; levothyroxine [Active]; losartan oral [Active]; Metoprolol [Active]; Spironolactone Oral [Active]; tamsulosin 0.4 mg oral capsule 1 cap daily [Active]; Thiamine Oral [Active]; Warfarin Oral [Active]; - Immunization history:: Adult Immunizations up to date. - Infectious Disease History:: Denies. - Social history:: Smoking status: Patient denies any tobacco usage or history of. Screenin:18 [facility] ED Fall Risk Assessment (Adult) History of falling in the last 3 months, iw including since admission No falls in past 3 months (0 pts) Confusion or Disorientation Yes (5 pts) Intoxicated or Sedated No (0 pts) Impaired Gait Yes (1 pt) Mobility Assist Device Used Yes (1 pt) Altered Elimination No (0 pt) Score/Fall Risk Level 3 or more points = High Risk Oriented to surroundings, Maintained a safe environment, Educated pt \T\ family on fall prevention, incl call for assistance when getting out of bed. Abuse screen: Denies injuries from another. Nutritional screening: No deficits noted. Tuberculosis screening: No symptoms or risk factors identified. Assessment: 11:59 General: Appears uncomfortable, ill, obese, Behavior is cooperative. Neuro: Level of iw Consciousness is awake, alert, obeys commands, Moves all extremities. Cardiovascular: 13:00 General: Appears in no apparent distress. uncomfortable. Pain: Denies pain. Neuro: hb Level of Consciousness is awake, alert, obeys commands, confused, Oriented to person, place, situation. Cardiovascular: Patient's skin is warm and dry. Respiratory: Respiratory effort is labored, Respiratory pattern is regular, symmetrical. GI: No signs and/or symptoms were reported involving the gastrointestinal system. : No signs and/or symptoms were reported regarding the genitourinary system. EENT: No signs and/or symptoms were reported regarding the EENT system. Derm: Skin is pink, warm \T\ dry. Musculoskeletal: No signs and/or symptoms reported regarding the musculoskeletal system. 15:00 Reassessment: No changes from previously documented assessment. Patient and/or family hb updated on plan of care and expected duration. Pain level reassessed. 17:00 Reassessment: No changes from previously documented assessment. Patient and/or family hb updated on plan of care and expected duration. Pain level reassessed. Vital Signs: 11:59 BP 132 / 87; Pulse 144; Resp 22; Temp 98.7(O); Pulse Ox 81% on R/A; Weight 149.69 kg; ss Height 6 ft. 0 in. ; 12:09 Pulse Ox 97% on 4 lpm NC; ss 14:18 BP 138 / 79; Pulse 89; Resp 20; Pulse Ox 94% on 4 lpm NC; iw 11:59 Body Mass Index 44.76 (149.69 kg, 182.88 cm) ED Course: 11:57 Patient arrived in ED. ss 11:58 Triage completed. ss 11:58 Arm band placed on Patient placed in an exam room, on a stretcher. ll1 11:59 Maira Grider, RN is Primary Nurse. iw 12:02 Domenico Arevalo MD is Attending Physician. tanmay 12:18 Initial lab(s) drawn, by me, sent to lab. Maintain EMS IV. Dressing intact. Good blood iw return noted. Site clean \T\ dry. Gauge \T\ site: 22 LAC. Flushed with 10 mL NS. Oxygen administration via nasal cannula \T\ 4L/min. 12:19 Patient has correct armband on for positive identification. Placed in gown. Bed in low iw position. Call light in reach. Side rails up X2. Client placed on continuous cardiac and pulse oximetry monitoring. NIBP monitoring applied. conveyor monitor on. 12:30 Provided Education on: call light. hb 12:44 Lab(s) recollected, by laborer driver, sent to lab. ts3 13:26 XRAY Chest (1 view) In Process Unspecified. EDMS 14:35 Clinton Sears MD is Hospitalizing Provider. tanmay 17:06 No provider procedures requiring assistance completed. Patient admitted, IV remains in hb place. Administered Medications: 15:11 Drug: Furosemide IVP 40 mg IVP once; give over 2 minutes Route: IVP; Site: left iw antecubital; 18:10 Follow up: Response: No adverse reaction iw 15:11 Drug: Pantoprazole IVP 40 mg IVP once Route: IVP; Site: left antecubital; iw 18:10 Follow up: Response: No adverse reaction iw 15:47 Drug: Levalbuterol Inhalation 2.5 mg Inhalation once Route: Inhalation; iw 15:47 Drug: Ipratropium Inhalation Aerosol 0.5 mg Inhalation once Route: Inhalation; iw Medication: 12:18 VIS not applicable for this client. iw Outcome: 14:42 Decision to Hospitalize by Provider. tanmay 17:06 Admitted to ER Hold. Please see [facility] for further documentation. hb 17:06 Condition: stable 17:06 Instructed on the need for admit, Demonstrated understanding of instructions, 11/14 13:26 Patient left the ED. iw Signatures: Dispatcher [employer] EDDomenico Eldridge MD MD cha Williams, Irene RN RN Jayla Escalante RN RN ss Baxter, Heather, RN RN hb Lewis, Lynsay, RN RN [facility] Cyndee Rodriguez [facility]
--- NOTE | 2024-11-13 14:43 | EDPHYS ---
Physician Documentation [facility] Name: Keyur Randall Age: 68 yrs Sex: Male : 1955 Arrival Date: 11/13/2024 Time: 11:55 Bed 16 Private MD: ED Physician Domenico Arevalo HPI: 11/13 14:21 This 68 yrs old Male presents to ER via EMS with complaints of Irregular tanmay Pulse, Shortness Of Breath. 14:21 The patient has shortness of breath at rest, with light activity. Onset: The tanmay symptoms/episode began/occurred 3 day(s) ago. The patient's shortness of breath is aggravated by supine position, is alleviated by rest, sitting up, application of supplemental oxygen. Associated signs and symptoms: Pertinent positives: non-productive cough. Severity of symptoms: At their worst the symptoms were moderate in the emergency department the symptoms are unchanged. The patient has not experienced similar symptoms in the past. Historical: - Allergies: 12:02 No Known Allergies; ss - Home Meds: 12:02 Amiodarone [Active]; Bumetanide [Active]; Digoxin Oral [Active]; Folic Acid Oral ss [Active]; Furosemide Oral [Active]; levothyroxine [Active]; losartan oral [Active]; Metoprolol [Active]; Spironolactone Oral [Active]; tamsulosin 0.4 mg oral capsule 1 cap daily [Active]; Thiamine Oral [Active]; Warfarin Oral [Active]; - Immunization history:: Adult Immunizations up to date. - Infectious Disease History:: Denies. - Social history:: Smoking status: Patient denies any tobacco usage or history of. ROS: 14:25 Constitutional: Negative for fever, chills, and weight loss, Eyes: Negative for injury, tanmay pain, redness, and discharge, ENT: Negative for injury, pain, and discharge, Neck: Negative for injury, pain, and swelling, Cardiovascular: Negative for chest pain, palpitations, and edema, Abdomen/GI: Negative for abdominal pain, nausea, vomiting, diarrhea, and constipation, Back: Negative for injury and pain, : Negative for injury, bleeding, discharge, and swelling, Skin: Negative for injury, rash, and discoloration, Psych: Negative for depression, anxiety, suicide ideation, homicidal ideation, and hallucinations, Allergy/Immunology: Negative for hives, rash, and allergies, Endocrine: Negative for neck swelling, polydipsia, polyuria, polyphagia, and marked weight changes, Hematologic/Lymphatic: Negative for swollen nodes, abnormal bleeding, and unusual bruising, 14:25 Respiratory: Positive for cough, shortness of breath, at rest. 14:25 Abdomen/GI: Positive for abdominal pain, abdominal distension, 14:25 MS/extremity: Positive for swelling, tenderness, of the right leg and left leg, Exam: 14:30 Constitutional: This is a well developed, well nourished patient who is awake, alert, tanmay and in no acute distress. Head/Face: Normocephalic, atraumatic. Eyes: Pupils equal round and reactive to light, extra-ocular motions intact. Lids and lashes normal. Conjunctiva and sclera are non-icteric and not injected. Cornea within normal limits. Periorbital areas with no swelling, redness, or edema. ENT: Nares patent. No nasal discharge, no septal abnormalities noted. Tympanic membranes are normal and external auditory canals are clear. Oropharynx with no redness, swelling, or masses, exudates, or evidence of obstruction, uvula midline. Mucous membranes moist. Neck: Trachea midline, no thyromegaly or masses palpated, and no cervical lymphadenopathy. Supple, full range of motion without nuchal rigidity, or vertebral point tenderness. No Meningismus. Chest/axilla: Normal chest wall appearance and motion. Nontender with no deformity. No lesions are appreciated. Cardiovascular: Regular rate and rhythm with a normal S1 and S2. No gallops, murmurs, or rubs. Normal PMI, no JVD. No pulse deficits. Abdomen/GI: Soft, non-tender, with normal bowel sounds. No distension or tympany. No guarding or rebound. No evidence of tenderness throughout. Back: No spinal tenderness. No costovertebral tenderness. Full range of motion. Male : Normal genitalia with no discharge or lesions. Skin: Warm, dry with normal turgor. Normal color with no rashes, no lesions, and no evidence of cellulitis. Psych: Awake, alert, with orientation to person, place and time. Behavior, mood, and affect are within normal limits. 14:30 ECG was reviewed by the Attending Physician. 14:30 Respiratory: the patient does not display signs of respiratory distress, Respirations: labored breathing, is not present, asymmetrical chest movement, is not seen, accessory muscle usage, is absent, Breath sounds: decreased breath sounds, that are moderate, are scattered, rhonchi, that are mild, are scattered, stridor, is not appreciated, + upper airway congestion. Respiratory rate: 20 14:30 Musculoskeletal/extremity: ROM: limited active range of motion, limited passive range of motion, in the right leg and left leg, Circulation is intact in all extremities. Sensation intact. Compartment Syndrome exam of affected extremity: is normal. Weight bearing: able to fully bear weight, DVT Exam: no pain, no tenderness, negative Homans' sign noted on exam, no appreciated bluish discoloration, no erythema, no increased warmth, swelling, Vital Signs: 11:59 BP 132 / 87; Pulse 144; Resp 22; Temp 98.7(O); Pulse Ox 81% on R/A; Weight 149.69 kg; ss Height 6 ft. 0 in. ; 12:09 Pulse Ox 97% on 4 lpm NC; ss 14:18 BP 138 / 79; Pulse 89; Resp 20; Pulse Ox 94% on 4 lpm NC; iw 11:59 Body Mass Index 44.76 (149.69 kg, 182.88 cm) ss MDM: 12:02 Medical Screening Exam initiated tanmay 11/13 12:05 Order name: Basic Metabolic Panel; Complete Time: 14: 11/13 12:05 Order name: CBC with Diff; Complete Time: 14:13 11/13 12:05 Order name: LFT's; Complete Time: 14: 11/13 12:05 Order name: Magnesium; Complete Time: 14: 11/13 12:05 Order name: NT PRO-BNP; Complete Time: 14: 11/13 12:05 Order name: PT-INR; Complete Time: 14: 11/13 12:05 Order name: Troponin HS; Complete Time: 14: 11/13 12:05 Order name: TSH; Complete Time: 14: 11/13 12:29 Order name: CBC Smear Scan; Complete Time: 14:13 [facility] 11/13 13:10 Order name: T4 Free; Complete Time: 14: EDCA 11/13 14:21 Order name: AMMONIA; Complete Time: 17:02 [facility] 11/13 15:51 Order name: Basic Metabolic Panel [facility] 11/13 15:51 Order name: Basic Metabolic Panel [facility] 11/13 15:51 Order name: Basic Metabolic Panel [facility] 11/13 15:51 Order name: Basic Metabolic Panel [facility] 11/13 15:51 Order name: CBC with Automated Diff [facility] 11/13 15:51 Order name: CBC with Automated Diff [facility] 11/13 15:51 Order name: CBC with Automated Diff [facility] 11/13 15:51 Order name: CBC with Automated Diff [facility] 11/13 15:51 Order name: Liver (Hepatic) Function [facility] 11/13 15:51 Order name: Liver (Hepatic) Function [facility] 11/13 15:51 Order name: Liver (Hepatic) Function [facility] 11/13 15:51 Order name: Liver (Hepatic) Function [facility] 11/13 15:51 Order name: Magnesium [facility] 11/13 15:51 Order name: Magnesium [facility] 11/13 15:51 Order name: Magnesium [facility] 11/13 15:51 Order name: Magnesium [facility] 11/14 10:47 Order name: Protime (+INR) [facility] 11/13 12:05 Order name: XRAY Chest (1 view); Complete Time: 17:02 11/13 14:14 Order name: BIPAP [facility] 11/13 12:05 Order name: EKG; Complete Time: 12:06 11/13 15:44 Order name: CONS Physician Consult [facility] 11/13 15:51 Order name: Patient Safety Orders [facility] 11/13 12:05 Order name: Cardiac monitoring; Complete Time: 12:16 11/13 12:05 Order name: EKG - Nurse/Tech; Complete Time: 12:16 11/13 12:05 Order name: IV Saline Lock; Complete Time: 12:16 11/13 12:05 Order name: Labs collected and sent; Complete Time: 12:16 11/13 12:05 Order name: O2 Per Protocol; Complete Time: 12:16 11/13 12:05 Order name: O2 Sat Monitoring; Complete Time: 12:16 11/13 12:24 Order name: Labs - recollect needed: recollect green top; Complete Time: 12:44 11/13 12:30 Order name: Labs - recollect needed: recollect blue top; Complete Time: 12:43 bd EC:30 Rate is 85 beats/min. Rhythm is irregularly irregular. QRS [place] is Normal. [place] interval tanmay is normal. QRS interval is normal. QT interval is normal. No Q waves. T waves are Normal. No ST changes noted. Interpreted by me. Reviewed by me. Administered Medications: 15:11 Drug: Furosemide IVP 40 mg IVP once; give over 2 minutes Route: IVP; Site: left iw antecubital; 18:10 Follow up: Response: No adverse reaction iw 15:11 Drug: Pantoprazole IVP 40 mg IVP once Route: IVP; Site: left antecubital; iw 18:10 Follow up: Response: No adverse reaction iw 15:47 Drug: Levalbuterol Inhalation 2.5 mg Inhalation once Route: Inhalation; iw 15:47 Drug: Ipratropium Inhalation Aerosol 0.5 mg Inhalation once Route: Inhalation; iw Disposition Summary: 11/13/24 14:42 Hospitalization Ordered Notes: Hospitalization Status: Inpatient Admission tanmay Provider: Clinton Sears tanmay Condition: Fair tanmay Problem: an acute exacerbation tanmay Symptoms: have improved tanmay Bed/Room Type: Standard tanmay Location: Telemetry/MedSurg (observation)(11/14/24 11:21) bc6 Room Assignment: [facility](11/14/24 11:21) 6 Diagnosis - Obesity, unspecified tanmay - Chronic atrial fibrillation tanmay - Abnormal coagulation profile tanmay - detention (current) use of anticoagulants tanmay - Chronic combined systolic (congestive) and diastolic (congestive) heart failure tanmay - Dyspnea tanmay Forms: - Medication Reconciliation Form tanmay - SBAR form tanmay - Leadership Thank You Letter tanmay Signatures: Dispatcher [employer] EDCA Suzan Guzman Corey, MD MD cha Williams, Irene RN VISH Jayla Mario RN RN ss Baxter, Heather, RN RN hb Bradberry, Kelly, RN RN ru3 Moriah Escoto 6 Corrections: (The following items were deleted from the chart) 16:12 14:42 Telemetry/MedSurg (Inpatient) tanmay kb3 16:12 14:42 tanmay kb3 17:03 17:03 BiPap ([employer] Only)+[id number] ordered. EDMS EDMS 11/14 10:02 09/24 16:12 [facility] ER HOLD kb3 bc6 11/14 10:02 11/13 16:12 ERHOLD- kb3 bc6 11/14 10:25 10:02 Telemetry/MedSurg (observation) bc6 bc6 10: 10:02 207 bc6 bc6 11:21 10:25 [facility] ER HOLD bc6 bc6 11:21 10:25 bc6 bc6
--- NOTE | 2024-11-13 16:07 | P.HP ---
Certification for Inpatient Patient admitted to: Inpatient With expected LOS: >2 Midnights Patient will require the following post-hospital care: Home Health Services Practitioner: I am a practitioner with admitting privileges, knowledge of patient current condition, hospital course, and medical plan of care. Services: Services provided to patient in accordance with Admission requirements found in Title 42 Section 412.3 of the Code of Federal Regulations Patient History Date of Service: 11/13/24 Primary Care Provider: Mey Jewell MD Reason for admission: CHF exacerbation History of Present Illness: 68-year-old male past medical history of obesity, chronic A-fib on anticoagulation, chronic combined systolic and diastolic heart failure, dyspnea, medication noncompliance arrives via EMS due to home health nurse calling complaining of hallucinations with rapid heart rate. Patient endorsing hallucinations auditory/visual, feeling palpitations, progressive dyspnea from incident, trouble recalling whether or not he is taking his medications. Children at the bedside, daughter and son. Family previously concerned for mentation including slurred speech and slow responses. History from children patient was only agreeable to take metoprolol and Coumadin daily. Metoprolol succinate 100 mg 2.5 mg send he through , milligrams Monday and Monday. Patient admits difficulty remembering when he has taken his medications. [facility] also called EMS yesterday for similar presentation and patient declined to be transported. Of note, health discharge patient today. ER course: Patient arrived via EMS with heart rate reported in the 140s and SpO2 81% on room air. Patient was placed on supplemental O2 on arrival. Vital signs otherwise within normal limits. Initial labs were drawn including CBC, BMP, LFTs, troponin, BNP. Labs notable for elevated INR at 9.28, sodium 130, elevated LFTs and bilirubins, ammonia normal, troponin normal, BNP 7982. TSH 4.950 and free T4 1.47. Chest x-ray completed showing signs of pulmonary edema Allergies No Known Allergies Allergy (Unverified 11/13/24 15:32) Home medications list reviewed: Yes Home Medications: Metoprolol Succinate [Toprol Xl] 100 mg PO DAILY 11/13/24 Warfarin Sodium 5 mg PO DAILY 11/13/24 Warfarin Sodium [Coumadin] 2.5 mg PO DAILY 11/13/24 - Past Medical/Surgical History Has patient received pneumonia vaccine in the past: No Diabetic: No -: Obesity -: Chronic A-fib -: Long-term use of anticoagulants -: Chronic combined systolic and diastolic heart failure -: medication non-compliance Past Surgical History: Unable to obtain - Social History Smoking Status: Never smoker CD- Drugs: No Caffeine use: Yes Place of Residence: Home Review of Systems 10-point ROS is otherwise unremarkable Physical Examination - Physical Exam General: Alert, Oriented x2, Cooperative, Disheveled, Delirious (Visual and auditory hallucinations) HEENT: Atraumatic, Normocephalic, Mucous membr. moist/pink, Scleral icterus (mi ld) Neck: Supple, 2+ carotid pulse no bruit, No Thyromegaly, No LAD Respiratory: Diminished, Crackles/rales Cardiovascular: No gallops, No rubs, No murmurs, Edema (+4 abdomen to feet), Irregular heart rate/rhythm Capillary refill: Brisk Gastrointestinal: Normal bowel sounds, Soft and benign, No masses, No rebound, No guarding, Distended Musculoskeletal: No clubbing, No contractures, No tenderness, No warmth, Other (Ecchymosis BLE) Integumentary: No breakdown, No significant lesion, No warmth, No cyanosis, Rash(es) (Ecchymosis BLE) Neurological: Sensation intact, Cranial nerves 3-12 intact, Abnormal speech, Abnormal affect Lymphatics: No axilla or inguinal lymphadenopathy Urinary: Other (External catheter to suction) External genitalia: Deferred Rectal: Deferred - Studies Laboratory Data (last 24 hrs) 11/13/24 11/13/24 11/13/24 12:45 12:30 12:10 WBC 5.80 Hgb 14.8 Hct 46.2 Plt Count 269 PT 98.3 H INR 9.28 H* Sodium 130 L Potassium 4.8 BUN 21 H Creatinine 1.24 Glucose 83 Magnesium 2.2 Total Bilirubin 2.5 H AST 68 H ALT 51 Alkaline Phosphatase 118 H Assessment and Plan - Plan Assessment: 68-year-old male past medical history of obesity, chronic A-fib on anticoagulation, chronic combined systolic and diastolic heart failure, dyspnea, medication noncompliance arrives via EMS due to home health nurse calling complaining of hallucinations with rapid heart rate. Patient endorsing hallucinations auditory/visual, feeling palpitations, progressive dyspnea from incident, trouble recalling whether or not he is taking his medications. Children at the bedside, daughter and son. Family previously concerned for mentation including slurred speech and slow responses. History from children patient was only agreeable to take metoprolol and Coumadin daily. Metoprolol succinate 100 mg 2.5 mg send he through , milligrams Monday and Monday. Patient admits difficulty remembering when he has taken his medications. Home health also called EMS yesterday for similar presentation and patient declined to be transported. Of note, health discharge patient today. Plan: Heart failure with reduced ejection fraction, in acute exacerbation: -CXR personally reviewed, signs of pulmonary edema present. -EKG ordered, no acute ischemic changes, A-fib. -Troponin 8.2 -BNP 7982 -Echocardiography ordered, will follow. -Strict intake and output chart. -Fluid restriction <1500 ml/day. -Lasix: Furosemide 40 mg IV twice daily -B bertha: Resume home metoprolol succinate 100 mg daily -AceI/ARB/ Arni: Patient not currently taking -SGLT-2: Patient not currently taking Monitor electrolytes BMP daily A-fib, currently CVR Patient compliant with home metoprolol succinate 100 mg daily Telemonitoring Continue home med Anticoagulation held for Coumadin toxicity as noted below Coumadin toxicity PT 98.3/INR 9 Hold anticoagulants Resume home Coumadin schedule once patient is within therapeutic window 2-3 Monitor for bleeding Hyponatremia, mild In the setting of CHF exacerbation, fluid overload - Sodium 130 - Diuresis as above - 1.5 L fluid restriction - Monitor BMP daily - Monitor fluid status -Consider nephrology consult if not improving Dispo: Aggressive diuresis Wean O2 Anticipate home with no needs Discharge Plan: Home Plan to discharge in: 72 Hours - Advance Directives Does patient have a Living Will: No Does patient have a Durable POA for Healthcare: No - Code Status/Comfort Care Code Status Assessed: Yes (DNR) Critical Care: No
[2024-11-13] MEDS: FUROSEMIDE 40 MG/4 ML VIAL IV SCH (18:52)
[2024-11-13] MEDS: ZIPRASIDONE MESYLA 20 MG/VIAL IM ONE (20:03)
[2024-11-13] MEDS ORDERED: WATER FOR INJ,STERILE 10 ML IM PRN (20:03)
[2024-11-13] MEDS ORDERED: ZIPRASIDONE MESYLA 20 MG/VIAL IM ONE (20:05)
[2024-11-13] MEDS ORDERED: WATER FOR INJ,STERILE 10 ML ONE (20:06)
[2024-11-14 05:16] LABS: Absolute Lymphocytes (CBC) 1.1 K/uL (0.7-4.9); Hematocrit 41.7 % (39.6-49.0); Hemoglobin 13.5 g/dL (13.6-17.9); MCH 29.9 pg (27.0-35.0); MCHC 32.5 g/dL (32.0-36.0); MCV 92.0 fL (80-100); MPV 8.4 fL (7.6-11.3); Nucleated RBC Absolute Count 0.1 (0-0); Nucleated Red Blood Cells % 0.7 % (0-0); RBC Red Blood Cell Count 4.53 M/uL (4.33-5.43); White Blood Count 6.50 thou/uL (4.3-10.9)
[2024-11-14 05:33] LABS: ALT/SGPT 38.0 U/L (16-61); AST/SGOT 50.0 U/L (15-37); Albumin 2.7 g/dL (3.4-5.0); Albumin/Globulin Ratio 0.6 (1.1-1.8); Alkaline Phosphatase 102.0 U/L (45-117); Anion Gap 6.4 mEq/L (5.0-15.0); BUN Blood Urea Nitrogen 19.0 mg/dL (7-18); Bilirubin Indirect, Calculated 0.8 mg/dL (0.2-0.8); Globulin 4.2 g/dL (2.3-3.5); Glucose Level 68.0 mg/dL (74-106); Magnesium 2.1 mg/dL (1.6-2.4); Potassium 4.4 mEq/L (3.5-5.1)
[2024-11-14] MEDS: METOPROLOL XL 100 MG TAB PO SCH (06:00)
[2024-11-14] MEDS ORDERED: FUROSEMIDE 40 MG/4 ML VIAL ONE (09:54)
[2024-11-14 10:45] LABS: PT Prothrombin Time 109.4 SECONDS (10-13.0)
[2024-11-14 10:46] LABS: Protime INR 10.36
--- NOTE | 2024-11-14 12:22 | P.CNS ---
Date of Consult: 11/14/24 Primary Care Provider: Mey Jewell MD Chief Complaint: CHF exacerbation History of Present Illness: Patient is morbidly obese with PMH of liver cirrhosis, AF, presented with worsening mental status and hallucinations, patient is on BiPAP and hard to resp ond to questions, family mention that he has been feeling weak recently that why he was brought to the hospital. Allergies No Known Allergies Allergy (Unverified 11/13/24 15:32) Home medications list reviewed: Yes Home Medications: Metoprolol Succinate [Toprol Xl] 100 mg PO DAILY 11/13/24 Warfarin Sodium 5 mg PO DAILY 11/13/24 Warfarin Sodium [Coumadin] 2.5 mg PO DAILY 11/13/24 - Past Medical/Surgical History Diabetic: No -: Obesity -: Chronic A-fib -: Long-term use of anticoagulants -: Chronic combined systolic and diastolic heart failure -: medication non-compliance - Social History CD- Drugs: No Caffeine use: Yes Place of Residence: Home Review of Systems 10-point ROS is otherwise unremarkable Physical Examination Temp Pulse Resp BP Pulse Ox 98.3 F 77 18 92/72 96 11/14/24 11:29 11/14/24 11:29 11/14/24 11:29 11/14/24 11:29 11/14/24 11:29 General: Moderate distress HEENT: Atraumatic, PERRLA, Mucous membr. moist/pink, EOMI, Sclerae nonicteric Neck: Supple, 2+ carotid pulse no bruit, No LAD, Without JVD or thyroid abnormality Respiratory: Clear to auscultation bilaterally, Normal air movement Cardiovascular: Regular rate/rhythm, Normal S1 S2 Gastrointestinal: Normal bowel sounds, No tenderness Musculoskeletal: No tenderness Integumentary: No rashes Neurological: Normal gait, Normal speech, Normal tone, Normal affect Lymphatics: No axilla or inguinal lymphadenopathy Laboratory Data (last 24 hrs) 11/13/24 11/13/24 11/13/24 12:45 12:30 12:10 WBC 5.80 Hgb 14.8 Hct 46.2 Plt Count 269 PT 98.3 H INR 9.28 H* Sodium 130 L Potassium 4.8 BUN 21 H Creatinine 1.24 Glucose 83 Magnesium 2.2 Total Bilirubin 2.5 H AST 68 H ALT 51 Alkaline Phosphatase 118 H - Problems (1) Atrial fibrillation Current Visit: Yes Status: Acute Plan: patient is currently in AF, rate controlled continue Toprol XL 100 mg daily continue to monitor on tele hold coumadin as INR is high get echo (2) Bilateral lower extremity edema Current Visit: Yes Status: Acute Plan: continue lasix 40 mg IV BID Continue to monitor input and output and electrolytes patient [facility] year that shown normal LV systolic function, mild to moderate (3) Supratherapeutic INR Current Visit: Yes Status: Acute Plan: INR is 10, recommend reversal with Kacentra, contact pharmacy for dosage. recommend brain CT to rule out any bleeding
[2024-11-14] MEDS: VITAMIN K (ADULT) 10 MG/ML SQ ONE ×2 (12:28→20:32)
--- NOTE | 2024-11-14 13:17 | P.PN ---
Subjective Date of Service: 11/14/24 Primary Care Provider: Mey Jewell MD Chief Complaint: CHF exacerbation Subjective: No new changes Assessed patient lying in bed. Patient wearing BiPAP upon arrival, removed for exam. Patient continues to have slurred speech that is difficult to understand, but is participative in conversation. Patient denies acute complaints including resolution of hallucinations, both auditory and visual, without visual changes, no bleeding, bruising. Patient cannot recall why he was placed on BiPAP last night. Patient confirms that he stopped taking his medications, with the exception of metoprolol and Coumadin. Difficult to understand why due to patient's speech. However, further chart review from outside hospital reveals facilities maintenance worker note saying patient prefers to focus on comfort. Therefore, treatment was directed towards managing heart failure symptoms for palliative relief. Overnight events: Per chart review overnight patient was given Geodon and placed on BiPAP, unclear rationale. However, this morning tolerating on room air without BiPAP. Will continue to monitor, discussed with bedside RN. Review of Systems 10-point ROS is otherwise unremarkable Physical Examination - Vital Signs Temperature: 98.3 F Blood Pressure: 92/72 Pulse: 77 Respirations: 18 Pulse Ox (%): 96 - Physical Exam General: Alert, Oriented x2, Cooperative, Confused, Other (Week) HEENT: Atraumatic, Normocephalic, Mucous membr. moist/pink Neck: Supple, JVD not distended, No Thyromegaly, No LAD Respiratory: Diminished Cardiovascular: Normal pulses, No gallops, No rubs, No murmurs, Edema (+4 abdomen to be), Irregular heart rate/rhythm Capillary refill: <2 Seconds Gastrointestinal: Normal bowel sounds, Soft and benign, No tenderness, No masses, No rebound, No guarding, Distended (With anasarca +3) Musculoskeletal: No clubbing, No contractures, No erythema, No tenderness, No warmth Integumentary: No rashes, No breakdown, No significant lesion, No erythema, No warmth, No cyanosis Neurological: Normal tone, Sensation intact, Cranial nerves 3-12 intact, Abnormal speech (Slurred), Abnormal strength (BUE, BLE weakness 2/5) Urinary: Other (External catheter dissection) External genitalia: Deferred Rectal: Deferred - Studies Laboratory Data (last 24 hrs) 11/13/24 12:45 PT 98.3 H INR 9.28 H* Medications List Reviewed: No Assessment And Plan - Plan Assessment: 68-year-old male past medical history of obesity, chronic A-fib on anticoagulation, chronic combined systolic and diastolic heart failure, dyspnea, medication noncompliance arrives via EMS due to home health nurse calling complaining of hallucinations with rapid heart rate. Patient endorsing hallucinations auditory/visual, feeling palpitations, progressive dyspnea from incident, trouble recalling whether or not he is taking his medications. Children at the bedside, daughter and son. Family previously concerned for mentation including slurred speech and slow responses. History from children patient was only agreeable to take metoprolol and Coumadin daily. Metoprolol succinate 100 mg 2.5 mg Monday through , milligrams Monday through Monday. Patient admits difficulty remembering when he has taken his medications. Home health also called EMS yesterday for similar presentation and patient declined to be transported. Of note, health discharge patient today. Plan: HFpEF, in acute exacerbation: Anasarca Aortic stenosis, mild to moderate -CXR personally reviewed, signs of pulmonary edema present. -EKG ordered, no acute ischemic changes, A-fib. -Troponin 8.2 -BNP 7982 on admission -Echocardiography ordered, will follow. -Strict intake and output chart. 3L output 11/13. -Fluid restriction <1500 ml/day. -Lasix: Furosemide 40 mg IV twice daily, not currently on at home -B bertha: Resume home metoprolol succinate 100 mg daily -AceI/ARB/ Arni: Patient not currently taking -SGLT-2: Patient not currently taking Monitor electrolytes BMP daily Acute on chronic encephalopathy, improving Hallucinations, visual and auditory, resolved Concern for acute hypercapnic respiratory failure, improved Likely respiratory etiology for encephalopathy and hallucination Tolerating room air without BiPAP Ordered scheduled VBG to evaluate carbon dioxide levels posttherapy Maintain BiPAP order as needed for sleeping Avoid sedating medications CT head without contrast ordered A-fib, currently CVR Patient compliant with home metoprolol succinate 100 mg daily Telemonitoring Continue home med Anticoagulation held for Coumadin toxicity as noted below Coumadin toxicity Supratherapeutic INR PT 109.4, INR 10.36 Hold anticoagulants Resume home Coumadin schedule once patient is within therapeutic window 2-3 Monitor for bleeding Discussed with pharmacy and cardiology recommending vitamin K 5 mg subcu x 1 with repeat INR in 12 hours, ordered INR scheduled for 11/[address] CAP and head without contrast ordered to assess for bleeding Hyponatremia, mild, improved In the setting of CHF exacerbation, fluid overload - Sodium 133 - Diuresis as above - 1.5 L fluid restriction - Monitor BMP daily - Monitor fluid status - Consider nephrology consult if not improving Alcoholic liver disease Thrombocytopenia, mild Platelets 136 Ammonia 40 on admission LFTs with improving trend Supratherapeutic INR as above Monitor CBC, LFTs Hypothyroidism, mild TSH 4.950, free T4 1.47 Not currently treated per patient preference Follow-up with PCP for further management Dispo: Aggressive diuresis Wean O2 Anticipate home with no needs Discharge Plan: Home Plan to discharge in: 72 Hours - Code Status/Comfort Care Code Status Assessed: No Critical Care: No
--- NOTE | 2024-11-14 13:51 | RAD REPORT ---
EXAM: CT brain without contrast HISTORY: AMS COMPARISON: None TECHNIQUE: Multiple contiguous axial images were obtained and a CT of the brain without contrast. Sag ittal and coronal reformats were performed. One or more of the following dose reduction techniques were used: Automated exposure control, adjust ment of the mA and/or kV according to patient size, and/or iterative reconstruction. FINDINGS: No evidence of hydrocephalus, intracranial hemorrhage, or extra-axial fluid collection. The brain is normal in morphology. No evidence of midline shift or areas of brain edema. The calvarium is intact. The visualized paranasal sinuses and mastoid air cells are essentially clear . IMPRESSION: No evidence of acute intracranial abnormality.
--- NOTE | 2024-11-14 14:07 | RAD REPORT ---
EXAM: CT CHEST, ABDOMEN AND PELVIS WITHOUT CONTRAST CLINICAL INDICATION: Abdominal distention TECHNIQUE: CT chest, abdomen and pelvis was performed without contrast, as per department protocol. A xial, sagittal and coronal reconstructions were obtained. One or more of the following dose reduction techniques were used: Automated exposure control, adjustment of the mA and/or kV according to patient size, and/or iterative reconstruction. Unless otherwise specified, incidental findings do not require dedicated imaging follow-up. Examination is limited by the lack of intravenous contrast material. COMPARISON: No prior exam. FINDINGS: LUNGS: Mild/moderate atelectasis is seen in both lung bases. PLEURA: Small bilateral pleural effusions, slightly larger on the right. MEDIASTINUM AND LYMPH NODES: No mediastinal mass or fluid collection. Normal size mediastinal, hilar, and axillary lymph nodes. OSSEOUS STRUCTURES AND CHEST WALL: Intact. LIVER: Normal in size and contour. No focal lesion or biliary dilatation. Probable gallstones. PANCREAS: No mass, ductal dilation, or marsha-pancreatic fluid. SPLEEN: Normal size. No focal lesion. ADRENALS: Normal; no mass. KIDNEYS: Normal size and contour. No hydronephrosis. URINARY BLADDER: Normal contour. GASTROINTESTINAL TRACT: No bowel obstruction or free air. Prominent sigmoid diverticulosis is present without diverticulitis. Mild free fluid in the abdomen and pelvis. APPENDIX: Normal appendix. LYMPH NODES: No lymphadenopathy. MUSCULOSKELETAL: Moderate lower lumbar spondylosis. OTHER: Moderate fat-containing left inguinal hernia. Mild anasarca. IMPRESSION: Mild fluid retention pattern seen with small pleural effusions, mild ascites and anasarca. Possible gallstones.
[2024-11-14 22:26] LABS: Base Excess, VBG 21.6 mmol/L (-2.0-3.0); O2 Saturation, VBG 88.2 % (40.0-70.0); PH, Venous Blood Gas 7.42 (7.32-7.42); PO2, Venous Blood Gas 54 mmHg (25-40)
[2024-11-14 22:28] LABS: HCO3, Venous Blood Gas 46.1 mmol/L (21.0-29.0); PCO2, Venous Blood Gas 71 mmHg (41-51)
[2024-11-14] MEDS: LORazepam 2 MG/ML VIAL IV ONE (22:56)
[2024-11-15 07:18] LABS: Absolute Lymphocytes (CBC) 1.2 K/uL (0.7-4.9); Hematocrit 41.1 % (39.6-49.0); Hemoglobin 12.8 g/dL (13.6-17.9); MCH 28.8 pg (27.0-35.0); MCHC 31.2 g/dL (32.0-36.0); MCV 92.2 fL (80-100); MPV 8.3 fL (7.6-11.3); Nucleated RBC Absolute Count 0.0 (0-0); Nucleated Red Blood Cells % 0.3 % (0-0); RBC Red Blood Cell Count 4.45 M/uL (4.33-5.43); White Blood Count 6.30 thou/uL (4.3-10.9)
[2024-11-15 07:42] LABS: ALT/SGPT 32.0 U/L (16-61); AST/SGOT 40.0 U/L (15-37); Albumin 2.8 g/dL (3.4-5.0); Albumin/Globulin Ratio 0.6 (1.1-1.8); Alkaline Phosphatase 102.0 U/L (45-117); Anion Gap 4.7 mEq/L (5.0-15.0); BUN Blood Urea Nitrogen 16.0 mg/dL (7-18); Bilirubin Indirect, Calculated 1.0 mg/dL (0.2-0.8); Globulin 4.5 g/dL (2.3-3.5); Glucose Level 78.0 mg/dL (74-106); Magnesium 2.0 mg/dL (1.6-2.4); Potassium 3.7 mEq/L (3.5-5.1)
[2024-11-15 08:13] LABS: PT Prothrombin Time 62.9 SECONDS (10-13.0); Protime INR 5.86
--- NOTE | 2024-11-15 09:06 | P.PN ---
Date of Service: 11/15/24 Subjective Primary Care Provider: Mey Jewell MD Chief Complaint: CHF exacerbation Subjective: No new changes Assessed patient lying in bed. Patient on 3 L nasal cannula. Did not wake for exam, but with during grimace to painful stimuli. Will monitor for mentation improvement as Ativan has time to wear off. Overnight events: Chart review shows patient was given IV Ativan x 1. Review of Systems Unable to meaningfully assess ROS due to patient's mental status. Physical Examination - Vital Signs Temperature: 98 F Blood Pressure: 134/78 Pulse: 112 Respirations: 20 Pulse Ox (%): 94 on 3L - Physical Exam General: Withdraws to painful stimuli HEENT: Atraumatic, Normocephalic, Mucous membr. moist/pink, PERRLA Neck: Supple, JVD not distended, No Thyromegaly, No LAD Respiratory: Diminished Cardiovascular: Normal pulses, No gallops, No rubs, No murmurs, Edema (+2 abdomen to feet, worse at mid vincent bilaterally), Irregular heart rate/rhythm Capillary refill: <2 Seconds Gastrointestinal: Normal bowel sounds, Soft and benign, No tenderness, No masses, No rebound, No guarding, Distended (With anasarca +2) Musculoskeletal: No clubbing, No contractures, No erythema, No tenderness, No warmth Integumentary: No rashes, No breakdown, No significant lesion, No erythema, No warmth, No cyanosis Neurological: Normal tone, Sensation intact Urinary: Other (External catheter) External genitalia: Deferred Rectal: Deferred - Studies Laboratory Data (last 24 hrs) 11/13/24 12:45 PT 62.9 H INR 5.86 H* Medications List Reviewed: No Assessment And Plan - Plan Assessment: 68-year-old male past medical history of obesity, chronic A-fib on anticoagulation, chronic combined systolic and diastolic heart failure, dyspnea, medication noncompliance arrives via EMS due to home health nurse calling complaining of hallucinations with rapid heart rate. Patient endorsing hallucinations auditory/visual, feeling palpitations, progressive dyspnea from incident, trouble recalling whether or not he is taking his medications. Children at the bedside, daughter and son. Family previously concerned for mentation including slurred speech and slow responses. History from children patient was only agreeable to take metoprolol and Coumadin daily. Metoprolol succinate 100 mg 2.5 mg Monday through , milligrams Monday through Monday. Patient admits difficulty remembering when he has taken his medications. Home health also called EMS yesterday for similar presentation and patient declined to be transported. Of note, health discharge patient today. Plan: HFpEF, in acute exacerbation: Improving Anasarca, improving Aortic stenosis, mild to moderate, chronic stable -CXR personally reviewed, signs of pulmonary edema present. -EKG ordered, no acute ischemic changes, A-fib. -Troponin 8.2 -BNP 7982 on admission -Echocardiography ordered, will follow. -Strict intake and output chart. 3.7L output 11/14. -Fluid restriction <1500 ml/day. -Lasix: Furosemide 40 mg IV twice daily, not currently on at home -B bertha: Continue home metoprolol succinate 100 mg daily -AceI/ARB/ Arni: Patient not currently taking -SGLT-2: Patient not currently taking Monitor electrolytes BMP daily Acute on chronic encephalopathy Hallucinations, visual and auditory, resolved Acute hypercapnic respiratory failure Likely respiratory etiology for encephalopathy and hallucination Tolerating NC without BiPAP VBG with compensated respiratory acidosis, pH 7.42, CO2 71, bicarb 21.3 Maintain BiPAP order as needed for sleeping and nasal cannula continuous Avoid sedating medications CT head without contrast ordered Monitor VBG A-fib, currently CVR Patient compliant with home metoprolol succinate 100 mg daily Telemonitoring Continue home med Anticoagulation held for Coumadin toxicity as noted below Coumadin toxicity Supratherapeutic INR PT 62.9, INR 5.86 Hold anticoagulants Resume home Coumadin schedule once patient is within therapeutic window 2-[address] CAP and head without concern for bleeding Hyponatremia, mild, improved In the setting of CHF exacerbation, fluid overload - Sodium 135 - Diuresis as above - 1.5 L fluid restriction - Monitor BMP daily - Monitor fluid status Alcoholic liver disease Thrombocytopenia, mild, resolved Platelets 194 Ammonia 40 on admission LFTs with improving trend Supratherapeutic INR as above Monitor CBC, LFTs Hypothyroidism, mild TSH 4.950, free T4 1.47 Not currently treated per patient preference Follow-up with PCP for further management Dispo: Aggressive diuresis Wean O2 Anticipate home with no needs Discharge Plan: Home Plan to discharge in: 72 Hours - Code Status/Comfort Care Code Status Assessed: No Critical Care: No
[2024-11-15] MEDS: METOPROLOL TARTRATE 5 MG/5 ML INJ IV STA (09:17)
[2024-11-15 12:02] LABS: Blood Morphology Comment NOTED (NOT SEEN); Stomatocytes 2+; White Blood Cell Scan OK (OK)
[2024-11-15 12:31] LABS: PH, Venous Blood Gas 7.39 (7.32-7.42)
[2024-11-15 12:32] LABS: Base Excess, VBG 36.7 mmol/L (-2.0-3.0); HCO3, Venous Blood Gas 61.7 mmol/L (21.0-29.0); O2 Saturation, VBG 73.0 % (40.0-70.0); PO2, Venous Blood Gas 39 mmHg (25-40)
[2024-11-15 12:37] LABS: PCO2, Venous Blood Gas 102 mmHg (41-51)
--- NOTE | 2024-11-15 19:07 | PN ---
Date of Progress Note: 11/15/2024 Subjective: Seen by bedside. Denies having any chest pains. Breathing is slightly better and lower extremity edema is slightly better. Physical Examination: Vital Signs: Reviewed. Head and Neck: Pupils are equal, reactive to light. Intact eye movements. Unable to evaluate JVD d ue to significant obesity. Lungs: Has crackles in both lung bases. No accessory muscle use or muscle retraction. Heart: Irregular. No extra sounds. Abdomen: Soft, nontender. Bowel sounds positive. No organomegaly. No masses or hernia. No rigidi ty or rebound. Extremities: Massive edema bilaterally. No clubbing, cyanosis. Intact pulses. Skin: No rash. No nodules. Neuro: Alert, awake, with confusion. No focal deficits appreciated. Investigations: BUN is 16, creatinine 1.1. Hemoglobin is 4.45. Assessment/recommendations: 1. Acute on chronic diastolic heart failure. He is fluid overloaded. Continue IV diuretics. Monito r BUN, creatinine, electrolytes. 2. Atrial fibrillation, rate is controlled. Continue current therapy. INR was supratherapeutic, to hold it and recommended to replace it in the future with Eliquis or Xarelto. There is no active blee ding. 3. Supratherapeutic INR. No bleeding. Recommend switching to Eliquis down the road once INR comes b ack to the therapeutic range. 4. Aortic valve stenosis, moderate. We will monitor with echo periodically. Cardiology will sign off and to follow up as an outpatient post discharge. SR/CHRISTENL Voice ID: [id number] Report ID: [id number]
[2024-11-15 22:08] LABS: PH, Venous Blood Gas 7.41 (7.32-7.42)
[2024-11-15 22:09] LABS: Base Excess, VBG 33.1 mmol/L (-2.0-3.0); O2 Saturation, VBG 99.7 % (40.0-70.0); PO2, Venous Blood Gas 202 mmHg (25-40)
[2024-11-15 22:12] LABS: HCO3, Venous Blood Gas 57.7 mmol/L (21.0-29.0); PCO2, Venous Blood Gas 91 mmHg (41-51)
[2024-11-16 05:26] LABS: Blood O2 Saturation 95.3 % (92.0-98.5)
[2024-11-16 07:03] LABS: Hematocrit 39.4 % (39.6-49.0); Hemoglobin 12.4 g/dL (13.6-17.9); MCH 28.9 pg (27.0-35.0); MCHC 31.6 g/dL (32.0-36.0); MCV 91.5 fL (80-100); PT Prothrombin Time 22.1 SECONDS (10-13.0); Protime INR 2.0; RBC Red Blood Cell Count 4.30 M/uL (4.33-5.43); White Blood Count 5.70 thou/uL (4.3-10.9)
[2024-11-16 07:04] LABS: Absolute Lymphocytes (CBC) 1.3 K/uL (0.7-4.9); MPV 8.4 fL (7.6-11.3); Nucleated RBC Absolute Count 0.0 (0-0); Nucleated Red Blood Cells % 0.3 % (0-0)
[2024-11-16] MEDS: FUROSEMIDE 40 MG/4 ML VIAL IV SCH (07:59)
[2024-11-16 08:11] LABS: ALT/SGPT 24.0 U/L (16-61); AST/SGOT 27.0 U/L (15-37); Albumin 2.8 g/dL (3.4-5.0); Albumin/Globulin Ratio 0.6 (1.1-1.8); Alkaline Phosphatase 98.0 U/L (45-117); Anion Gap 3.6 mEq/L (5.0-15.0); BUN Blood Urea Nitrogen 14.0 mg/dL (7-18); Bilirubin Indirect, Calculated 1.2 mg/dL (0.2-0.8); Globulin 4.6 g/dL (2.3-3.5); Glucose Level 122.0 mg/dL (74-106); Magnesium 2.1 mg/dL (1.6-2.4); Potassium 3.6 mEq/L (3.5-5.1)
[2024-11-16 10:22] LABS: Base Excess, VBG 30.5 mmol/L (-2.0-3.0); O2 Saturation, VBG 97.0 % (40.0-70.0); PH, Venous Blood Gas 7.41 (7.32-7.42); PO2, Venous Blood Gas 90 mmHg (25-40)
[2024-11-16 10:29] LABS: HCO3, Venous Blood Gas 55.1 mmol/L (21.0-29.0); PCO2, Venous Blood Gas 87 mmHg (41-51)
[2024-11-16] MEDS: POTASSIUM 25 MEQ EFFERV TAB PO ONE (10:35)
--- NOTE | 2024-11-16 10:57 | P.PN ---
Date of Service: 11/16/24 Subjective Primary Care Provider: Mey Jewell MD Chief Complaint: CHF exacerbation Subjective: No new changes Assessed patient lying in bed. Patient on Bipap. Patient was awake and able to answer questions. However, difficult to understand due to BiPAP mask. Patient currently denies any acute complaints. He reports tolerating BiPAP mask with mild discomfort. Overnight events: Placed on BiPAP due to VBG's with CO2 ranging from 80-100 persistently. Review of Systems ROS as noted in HPI above. Physical Examination - Vital Signs Temperature: 98.6 F Blood Pressure: 129/67 Pulse: 97 Respirations: 18 Pulse Ox (%): 95 on BiPAP - Physical Exam General: Alert oriented x 2, no apparent distress, morbidly obese HEENT: Atraumatic, Normocephalic, Mucous membr. moist/pink, PERRLA, BiPAP mask applied Neck: Supple, JVD not distended, No Thyromegaly, No LAD Respiratory: Diminished Cardiovascular: Normal pulses, No gallops, No rubs, No murmurs, Edema (+1 abdomen to feet), Irregular heart rate/rhythm Capillary refill: <2 Seconds Gastrointestinal: Normal bowel sounds, Soft and benign, No tenderness, No masses, No rebound, No guarding, Distended (With anasarca +1) Musculoskeletal: No clubbing, No contractures, No erythema, No tenderness, No warmth Integumentary: No rashes, No breakdown, No significant lesion, No erythema, No warmth, No cyanosis Neurological: Normal tone, Sensation intact Urinary: Other (External catheter to suction) External genitalia: Deferred Rectal: Deferred - Studies Laboratory Data (last 24 hrs) 11/16/24 PT 22.1 INR 2.00 Medications List Reviewed: No Assessment And Plan - Plan Assessment: 68-year-old male past medical history of obesity, chronic A-fib on anticoagulation, chronic combined systolic and diastolic heart failure, dyspnea, medication noncompliance arrives via EMS due to home health nurse calling complaining of hallucinations with rapid heart rate. Patient endorsing hallucinations auditory/visual, feeling palpitations, progressive dyspnea from incident, trouble recalling whether or not he is taking his medications. Children at the bedside, daughter and son. Family previously concerned for mentation including slurred speech and slow responses. History from children patient was only agreeable to take metoprolol and Coumadin daily. Metoprolol succinate 100 mg 2.5 mg Monday through , milligrams Monday through Monday. Patient admits difficulty remembering when he has taken his medications. Home health also called EMS yesterday for similar presentation and patient declined to be transported. Of note, health discharge patient today. Plan: HFpEF, in acute exacerbation: Improving Anasarca, improving Aortic stenosis, mild to moderate, chronic stable -CXR personally reviewed, signs of pulmonary edema present. -EKG ordered, no acute ischemic changes, A-fib. -Troponin 8.2 -BNP 7982 -Echocardiography completed 11/15, pending read -Strict intake and output chart. -3090 mL 11/15 -Fluid restriction <1500 ml/day. -Lasix: Furosemide 40 mg IV daily, not currently on at home -B bertha: Continue home metoprolol succinate 100 mg daily Monitor electrolytes BMP daily Acute on chronic encephalopathy Hallucinations, visual and auditory, resolved Acute versus hypercapnic respiratory failure CT head without contrast nonconcerning for any acute intracranial abnormality Likely respiratory etiology for encephalopathy and hallucination Patient placed back on continuous BiPAP due to VBG showed CO2 persistent between 70 and 100 Last VBG s/p 10 hours of BiPAP pH 7.41, CO2 87, bicarb 30.5 Maintain BiPAP continuously Monitor VBG's Avoid sedating medications Upgrade to ICU due to continuous BiPAP needs Pulmonology consulted A-fib, currently CVR Patient compliant with home metoprolol succinate 100 mg daily Telemonitoring Continue home med Restarted warfarin due to INR of 2 on 11/16 at home schedule Coumadin toxicity Supratherapeutic INR PT 22.1, INR 2.0 Resume warfarin on home schedule of 2.5 x 4 days, then 5 x 3 days Monitor for bleeding CT CAP and head without concern for bleeding Monitor PT/INR daily Hyponatremia, mild, improved In the setting of CHF exacerbation, fluid overload - Sodium 135 - Diuresis as above - 1.5 L fluid restriction - Monitor BMP daily - Monitor fluid status Alcoholic liver disease Thrombocytopenia, mild, resolved Platelets 165 Ammonia 40 on admission LFTs with improving trend Supratherapeutic INR resolved Monitor CBC, LFTs Hypothyroidism, mild TSH 4.950, free T4 1.47 Not currently treated per patient preference Follow-up with PCP for further management Dispo: Aggressive diuresis Anticipate home with no needs Discharge Plan: Home Plan to discharge in: 72 Hours - Code Status/Comfort Care Code Status Assessed: No Critical Care: Yes Time spent on critical care 78 minutes
[2024-11-16] MEDS: WARFARIN SODIUM 5 MG TAB PO SCH (16:04)
[2024-11-16 22:49] LABS: PH, Venous Blood Gas 7.39 (7.32-7.42); PO2, Venous Blood Gas 95 mmHg (25-40)
[2024-11-16 22:50] LABS: Base Excess, VBG 26.5 mmol/L (-2.0-3.0); HCO3, Venous Blood Gas 51.5 mmol/L (21.0-29.0); O2 Saturation, VBG 97.3 % (40.0-70.0); PCO2, Venous Blood Gas 85 mmHg (41-51)
[2024-11-17 05:57] LABS: Hematocrit 39.8 % (39.6-49.0); Hemoglobin 12.5 g/dL (13.6-17.9); MCH 28.8 pg (27.0-35.0); MCHC 31.5 g/dL (32.0-36.0); MCV 91.3 fL (80-100); MPV 8.2 fL (7.6-11.3); RBC Red Blood Cell Count 4.36 M/uL (4.33-5.43); White Blood Count 5.50 thou/uL (4.3-10.9)
[2024-11-17 06:10] LABS: PT Prothrombin Time 17.6 SECONDS (10-13.0); Protime INR 1.58
[2024-11-17 06:31] LABS: Anion Gap 3.0 mEq/L (5.0-15.0); BUN Blood Urea Nitrogen 14.0 mg/dL (7-18); Glucose Level 120.0 mg/dL (74-106); Magnesium 2.2 mg/dL (1.6-2.4); Potassium 4.0 mEq/L (3.5-5.1)
[2024-11-17] MEDS: acetaZOLAMIDE 250 MG TAB PO ONE (07:07)
--- NOTE | 2024-11-17 08:11 | P.PN ---
Date of Service: 11/17/24 Subjective Primary Care Provider: Mey Jewell MD Chief Complaint: CHF exacerbation Subjective: No new changes Assessed patient lying in bed. Patient on Bipap. Patient was awake and able to answer questions. However, difficult to understand due to BiPAP mask. Patient currently denies any acute complaints. He reports tolerating BiPAP mask with mild discomfort. Overnight events: Placed on BiPAP due to VBG's with CO2 ranging from 80-100 persistently. Review of Systems ROS as noted in HPI above. Physical Examination - Vital Signs Temperature: 98.5 F Blood Pressure: 114/69 Pulse: 84 Respirations: 20 Pulse Ox (%): 100 - Physical Exam General: Alert oriented x 2, no apparent distress, morbidly obese HEENT: Atraumatic, Normocephalic, Mucous membr. moist/pink, PERRLA, BiPAP mask applied Neck: Supple, JVD not distended, No Thyromegaly, No LAD Respiratory: Diminished Cardiovascular: Normal pulses, No gallops, No rubs, No murmurs, Edema (+1 abdomen to feet), Irregular heart rate/rhythm Capillary refill: <2 Seconds Gastrointestinal: Normal bowel sounds, Soft and benign, No tenderness, No masses, No rebound, No guarding, Distended (With anasarca +1) Musculoskeletal: No clubbing, No contractures, No erythema, No tenderness, No warmth Integumentary: No rashes, No breakdown, No significant lesion, No erythema, No warmth, No cyanosis Neurological: Normal tone, Sensation intact Urinary: Other (External catheter to suction) External genitalia: Deferred Rectal: Deferred - Studies Laboratory Data (last 24 hrs) 11/17/24 PT 17.6 INR 1.58 Medications List Reviewed: No Assessment And Plan - Plan Assessment: 68-year-old male past medical history of obesity, chronic A-fib on anticoagulation, chronic combined systolic and diastolic heart failure, dyspnea, medication noncompliance arrives via EMS due to home health nurse calling complaining of hallucinations with rapid heart rate. Patient endorsing hallucinations auditory/visual, feeling palpitations, progressive dyspnea from incident, trouble recalling whether or not he is taking his medications. Children at the bedside, daughter and son. Family previously concerned for mentation including slurred speech and slow responses. History from children patient was only agreeable to take metoprolol and Coumadin daily. Metoprolol succinate 100 mg 2.5 mg Monday through , milligrams Monday through Monday. Patient admits difficulty remembering when he has taken his medications. Home health also called EMS yesterday for similar presentation and patient declined to be transported. Of note, health discharge patient today. Plan: HFpEF, in acute exacerbation: Improving Anasarca, improving Aortic stenosis, mild to moderate, chronic stable -CXR personally reviewed, signs of pulmonary edema present. -EKG ordered, no acute ischemic changes, A-fib. -Troponin 8.2 -BNP 7982 -Follow-up with copy cutter for interval echocardiographic recommended by cardiology -Strict intake and output chart. -1810 mL 11/16 -Fluid restriction <1500 ml/day. -Lasix: Furosemide 40 mg IV daily, not currently on at home -B bertha: Continue home metoprolol succinate 100 mg daily Monitor electrolytes BMP daily Acute on chronic encephalopathy Hallucinations, visual and auditory, resolved Acute versus hypercapnic respiratory failure CT head without contrast nonconcerning for any acute intracranial abnormality Likely respiratory etiology for encephalopathy and hallucination Patient placed back on continuous BiPAP due to VBG showed CO2 persistent between 70 and 100 Last VBG s/p 11/16 pH 7.39, CO2 85, bicarb 51.5, marginally improved Maintain BiPAP continuously Monitor VBG's Avoid sedating medications Cancel ICU transfer due to patient stable and off BiPAP this morning with improved mentation Pulmonology consulted A-fib, currently CVR Patient compliant with home metoprolol succinate 100 mg daily Telemonitoring Continue home med Restarted warfarin due to INR of 2 on 11/16 at home schedule Cardiology consulted and signed off, recommends assessing feasibility of switc rubi to DOAC for safety Coumadin toxicity, result Supratherapeutic INR, resolved Subtherapeutic INR PT 17.6, INR 1.5 11/17 Resume warfarin on home schedule of 2.5 x 4 days, then 5 x 3 days starting 11/[address] CAP and head without concern for bleeding Monitor PT/INR daily Hyponatremia, mild, improved In the setting of CHF exacerbation, fluid overload - Sodium 133 - Diuresis as above - 1.5 L fluid restriction - Monitor BMP daily - Monitor fluid status Alcoholic liver disease Thrombocytopenia, mild, resolved Platelets 156 Ammonia 40 on admission LFTs with improving trend Supratherapeutic INR resolved Monitor CBC, LFTs Hypothyroidism, mild TSH 4.950, free T4 1.47 Not currently treated per patient preference Follow-up with PCP for further management Dispo: Aggressive diuresis Anticipate home with no needs Discharge Plan: Home Plan to discharge in: 48 Hours - Code Status/Comfort Care Code Status Assessed: No Critical Care: Yes Time spent on critical care 61 minutes
[2024-11-17 10:36] LABS: Base Excess, VBG 23.6 mmol/L (-2.0-3.0); HCO3, Venous Blood Gas 48.2 mmol/L (21.0-29.0); O2 Saturation, VBG 99.8 % (40.0-70.0); PH, Venous Blood Gas 7.41 (7.32-7.42); PO2, Venous Blood Gas 211 mmHg (25-40)
[2024-11-17 10:41] LABS: PCO2, Venous Blood Gas 76 mmHg (41-51)
[2024-11-17] MEDS ORDERED: DOCUSATE NA/SENNA CONC 1 TAB PO PRN (11:58)
[2024-11-17] MEDS: RIVAROXABAN 20 MG TABLET PO SCH (17:48)
--- NOTE | 2024-11-17 18:03 | PN ---
Date of Progress Note: 11/17/2024 Subjective: The patient was seen by bedside. Doing clinically well. No chest pain. Breathing much easier. Lower extremity edema is better. Review of Systems: No chest pain. Has orthopnea, lower extremity edema with improvement, mild shortness of breath. No chest pain. No nausea, vomiting, diarrhea. All other systems reviewed, they are negative. Physical Examination: Vital Signs: Reviewed. Head and Neck: Pupils are equal, reactive to light. Intact eye movements. No cervical lymphadenopa thy. Lungs: Clear to auscultation today bilaterally. No rhonchi, wheezing, or crackles. No accessory mu scle use. Heart: Regular rate and rhythm. No extra sounds. Abdomen: Soft, nontender. Bowel sounds positive. No organomegaly. No masses or hernia. No rigidi ty or rebound. Extremities: No clubbing or cyanosis. 2+ edema with significant improvement comparing to yesterday. Neurologic: Alert, awake, oriented x3. No acute focal deficits appreciated. Lymph Nodes: No cervical or axillary lymphadenopathy. Investigations: Labs reviewed. Assessment And Recommendations: 1. Acute on chronic diastolic heart failure exacerbation. I recommend to continue IV Lasix one more day and switch to oral by tomorrow in preparation for discharge. 2. Atrial fibrillation. Rate is controlled and he is on Coumadin. INR now is still subtherapeutic. I recommend to start him on Eliquis 5 mg twice a day or Xarelto 20 mg once a day instead of the Coumadin, as he had significant variation of his INR. 3. Supratherapeutic INR, resolved. Switch to Xarelto as above. SR/MODL Voice ID: [id number] Report ID: [id number]
[2024-11-17] MEDS: acetaZOLAMIDE 250 MG TAB PO SCH (20:29)
[2024-11-18 05:40] LABS: Hematocrit 40.0 % (39.6-49.0); Hemoglobin 12.6 g/dL (13.6-17.9); MCH 29.0 pg (27.0-35.0); MCHC 31.6 g/dL (32.0-36.0); MCV 91.5 fL (80-100); MPV 8.5 fL (7.6-11.3); RBC Red Blood Cell Count 4.37 M/uL (4.33-5.43); White Blood Count 5.70 thou/uL (4.3-10.9)
[2024-11-18 07:14] LABS: Anion Gap 6.1 mEq/L (5.0-15.0); BUN Blood Urea Nitrogen 12.0 mg/dL (7-18); Glucose Level 108.0 mg/dL (74-106); Magnesium 2.2 mg/dL (1.6-2.4); Potassium 4.1 mEq/L (3.5-5.1)
[2024-11-18] MEDS: POLYETHYL GLY 3350 17 GM/DOSE PO SCH (09:02)
--- NOTE | 2024-11-18 11:08 | P.PN ---
Subjective Date of Service: 11/18/24 Primary Care Provider: Mey Jewell MD Chief Complaint: CHF exacerbation Subjective: No new changes, No C/O voiced, Tolerating diet Review of Systems 10-point ROS is otherwise unremarkable Physical Examination - Vital Signs Temperature: 98.1 F Blood Pressure: 126/71 Pulse: 79 Respirations: 16 Pulse Ox (%): 96 - Physical Exam General: Alert, In no apparent distress HEENT: Atraumatic, PERRLA, EOMI Neck: Supple, JVD not distended Respiratory: Clear to auscultation bilaterally, Normal air movement Cardiovascular: Regular rate/rhythm, Normal S1 S2 Gastrointestinal: Normal bowel sounds, No tenderness Musculoskeletal: No tenderness Integumentary: No rashes Neurological: Normal speech, Normal tone, Normal affect Lymphatics: No axilla or inguinal lymphadenopathy - Studies Medications List Reviewed: No Assessment And Plan - Current Problems (Diagnosis) (1) Atrial fibrillation Current Visit: Yes Status: Acute Plan: patient is currently in AF, rate controlled continue Toprol XL 100 mg daily Continue Xarelto 20 mg daily (2) Bilateral lower extremity edema Current Visit: Yes Status: Acute Plan: continue Daimox 250 mg po BID Continue to monitor input and output and electrolytes patient had an echo in [facility] this year that shown normal LV systolic function, mild to moderate (3) Supratherapeutic INR Current Visit: Yes Status: Acute Plan: Resolved. Cardiology will sign off, please call with any questions.
[2024-11-18] MEDS: POTASS/SODIUM PHOSPHATE 1 PKT POWD.PACK PO ONE (12:34)
--- NOTE | 2024-11-18 13:31 | P.PN ---
Date of Service: 11/18/24 Subjective Primary Care Provider: Mey Jewell MD Chief Complaint: CHF exacerbation Subjective: No new changes Assessed patient lying in bed. Patient on Bipap. Patient was awake and able to answer questions. However, difficult to understand due to BiPAP mask. Patient currently denies any acute complaints. He reports tolerating BiPAP mask with mild discomfort. Overnight events: Placed on BiPAP due to VBG's with CO2 ranging from 80-100 persistently. Review of Systems ROS as noted in HPI above. Physical Examination - Vital Signs Temperature: 98.3 F Blood Pressure: 117/64 Pulse: 77 Respirations: 18 Pulse Ox (%): 100 - Physical Exam General: Alert oriented x 2, no apparent distress, morbidly obese HEENT: Atraumatic, Normocephalic, Mucous membr. moist/pink, PERRLA, nasal cannula Neck: Supple, JVD not distended, No Thyromegaly, No LAD Respiratory: Diminished Cardiovascular: Normal pulses, No gallops, No rubs, No murmurs, Edema (trace abdomen to feet), Irregular heart rate/rhythm Capillary refill: <2 Seconds Gastrointestinal: Normal bowel sounds, Soft and benign, No tenderness, No masses, No rebound, No guarding, Distended (With anasarca +1) Musculoskeletal: No clubbing, No contractures, No erythema, No tenderness, No warmth Integumentary: No rashes, No breakdown, No significant lesion, No erythema, No warmth, No cyanosis Neurological: Normal tone, Sensation intact Urinary: Other (External catheter to suction) External genitalia: Deferred Rectal: Deferred - Studies Laboratory Data (last 24 hrs) 11/18/24 Creatinine 0.92 Carbon dioxide 35 Medications List Reviewed: No Assessment And Plan - Plan Assessment: 68-year-old male past medical history of obesity, chronic A-fib on anticoagulation, chronic combined systolic and diastolic heart failure, dyspnea, medication noncompliance arrives via EMS due to home health nurse calling complaining of hallucinations with rapid heart rate. Patient endorsing hallucinations auditory/visual, feeling palpitations, progressive dyspnea from incident, trouble recalling whether or not he is taking his medications. Children at the bedside, daughter and son. Family previously concerned for mentation including slurred speech and slow responses. History from children patient was only agreeable to take metoprolol and Coumadin daily. Metoprolol succinate 100 mg 2.5 mg Monday through , milligrams Monday through Monday. Patient admits difficulty remembering when he has taken his medications. Home health also called EMS yesterday for similar presentation and patient declined to be transported. Of note, health discharge patient today. Plan: HFpEF, in acute exacerbation: Improving Anasarca, improving Aortic stenosis, mild to moderate, chronic stable Deconditioning/weakness -CXR personally reviewed, signs of pulmonary edema present. -EKG ordered, no acute ischemic changes, A-fib. -Troponin 8.2 -BNP 7982 -Follow-up with medical records auditor for interval echocardiographic recommended by cardiology -Strict intake and output chart. -830 mL 11/17 -Fluid restriction <1500 ml/day. -Lasix: Diamox 250 mg twice daily, take to continue on discharge -B bertha: Continue home metoprolol succinate 100 mg daily Monitor electrolytes BMP daily PT/OT eval ordered, appreciate recs for discharge Acute on chronic encephalopathy, improving Hallucinations, visual and auditory, resolved Acute versus hypercapnic respiratory failure, improving CT head without contrast nonconcerning for any acute intracranial abnormality Likely respiratory etiology for encephalopathy and hallucination Patient placed back on continuous BiPAP due to VBG showed CO2 persistent between 70 and 100 Last VBG s/p 11/16 pH 7.39, CO2 85, bicarb 51.5, marginally improved Maintain BiPAP as needed when sleeping Monitor VBG's for mentation change Avoid sedating medications Pulmonology consulted A-fib, currently CVR Patient compliant with home metoprolol succinate 100 mg daily Telemonitoring Continue home med Cardiology consulted and signed off Recommendation to change from warfarin to DOAC per discussion with cardiology Continue Xarelto 20 mg daily Coumadin toxicity, result Supratherapeutic INR, resolved Subtherapeutic INR PT 17.6, INR 1.5 11/17 Substitute warfarin for Xarelto as above Monitor for bleeding CT CAP and head without concern for bleeding Monitor PT/INR as needed Hyponatremia, mild, improved In the setting of CHF exacerbation, fluid overload - Sodium 134 - Diuresis as above - 1.5 L fluid restriction - Monitor BMP daily - Monitor fluid status Alcoholic liver disease Thrombocytopenia, mild, resolved Platelets 174 Ammonia 40 on admission LFTs with improving trend Supratherapeutic INR resolved Monitor CBC, LFTs Hypothyroidism, mild TSH 4.950, free T4 1.47 Not currently treated per patient preference Follow-up with PCP for further management Dispo: Monitor diuresis on p.o. Diamox PT/OT eval Family requesting SNF evaluation Discharge Plan: Home Plan to discharge in: 48 Hours - Code Status/Comfort Care Code Status Assessed: No Critical Care: No
[2024-11-18] MEDS ORDERED: WARFARIN SODIUM 2.5 MG TAB PO SCH (17:00)
[2024-11-19] MEDS: DIPHENHYDRAMINE 25 MG TAB/CAP PO ONE (03:13)
[2024-11-19 04:40] LABS: Hematocrit 38.5 % (39.6-49.0); Hemoglobin 12.4 g/dL (13.6-17.9); MCH 29.2 pg (27.0-35.0); MCHC 32.2 g/dL (32.0-36.0); MCV 90.8 fL (80-100); MPV 8.1 fL (7.6-11.3); RBC Red Blood Cell Count 4.24 M/uL (4.33-5.43); White Blood Count 4.60 thou/uL (4.3-10.9)
[2024-11-19 04:46] LABS: Anion Gap 6.1 mEq/L (5.0-15.0); BUN Blood Urea Nitrogen 14.0 mg/dL (7-18); Glucose Level 101.0 mg/dL (74-106); Magnesium 2.2 mg/dL (1.6-2.4); Potassium 4.1 mEq/L (3.5-5.1)
--- NOTE | 2024-11-19 14:18 | P.PN ---
Subjective Date of Service: 11/19/24 Primary Care Provider: Mey Jewell MD Chief Complaint: CHF exacerbation Patient is awake and interactive. He used BiPAP last night. He is currently tolerating 3 L oxygen via nasal cannula. No issues overnight reported. Physical Examination - Vital Signs Temperature: 98.1 F Blood Pressure: 128/73 Pulse: 85 Respirations: 20 Pulse Ox (%): 96 - Studies Medications List Reviewed: No Assessment And Plan - Plan Physical examination General: Alert and oriented x3, NAD, morbidly obese Neck: Supple, no elevated JVD Heart: Heart sounds 1 and 2 normal, regular rhythm, normal rate, no pedal edema Lungs: Clear to auscultation bilaterally, diminished breath sounds bilaterally, no rhonchi or crackles. Abdomen: Soft, obese abdomen, nontender, normal bowel sounds. Extremities: No tenderness, no deformity Skin: Normal skin turgor, no nodules or ulcers. Neuro: No focal motor deficit. Normal speech. Psychiatry: Normal mood, no agitation. HFpEF, in acute exacerbation: Improving Anasarca, improving Aortic stenosis, mild to moderate, chronic stable Deconditioning/weakness EKG-A-fib. Strict intake and output chart. -830 mL 11/17 Fluid restriction <1500 ml/day. Continue Diamox 250 mg twice daily, take to continue on discharge Continue home metoprolol succinate 100 mg daily Monitor and optimize electrolyte Continue PT. Acute metabolic encephalopathy, improving Hallucinations, visual and auditory, resolved Acute on chronic hypercapnic respiratory failure CT head negative Hallucinations likely related to CO2 narcosis BiPAP during sleep and oxygen by nasal cannula while awake. BiPAP as needed for drowsiness. Patient is on Diamox Avoid sedating medications Pulmonology consulted A-fib, currently CVR Rate controlled on metoprolol XL 100 mg daily Cardiology evaluated patient. warfarin to Xarelto per cardiology recommended Continue Xarelto 20 mg daily Coumadin toxicity, resolved Supratherapeutic INR, resolved CT CAP and head without concern for bleeding Hypervolemic hyponatremia Sodium 134 Continue Diamox 1.5 L fluid restriction Monitor BMP daily Alcoholic liver disease Thrombocytopenia resolved Stable Monitor CBC, LFTs Hypothyroidism, mild TSH 4.950, free T4 1.47 Follow-up with PCP for monitoring Dispo: Home with home health.
[2024-11-20 07:52] LABS: Absolute Lymphocytes (CBC) 1.4 K/uL (0.7-4.9); Hematocrit 39.9 % (39.6-49.0); Hemoglobin 12.5 g/dL (13.6-17.9); MCH 28.9 pg (27.0-35.0); MCHC 31.3 g/dL (32.0-36.0); MCV 92.5 fL (80-100); MPV 8.7 fL (7.6-11.3); Nucleated RBC Absolute Count 0.0 (0-0); Nucleated Red Blood Cells % 0.2 % (0-0); RBC Red Blood Cell Count 4.32 M/uL (4.33-5.43); White Blood Count 5.30 thou/uL (4.3-10.9)
[2024-11-20 08:02] LABS: Anion Gap 5.3 mEq/L (5.0-15.0); BUN Blood Urea Nitrogen 18.0 mg/dL (7-18); Glucose Level 105.0 mg/dL (74-106); Potassium 4.3 mEq/L (3.5-5.1)
[2024-11-20] MEDS: ARFORMOTEROL TARTRATE 15 MCG/2 ML VIAL.NEB NEB SCH (12:54)
--- NOTE | 2024-11-20 12:59 | P.CNS ---
Date of Consult: 11/20/24 Reason for Consult: Resp failure Primary Care Provider: Mey Jewell MD Chief Complaint: CHF exacerbation History of Present Illness: Very poor historian Drowsy 68-year-old male past medical history of obesity, chronic A-fib on ant icoagulation, chronic combined systolic and diastolic heart failure, dyspnea, medication noncompliance arrives via EMS due to home health nurse calling complaining of hallucinations with rapid heart rate. Patient endorsing hallucinations auditory/visual, feeling palpitations, progressive dyspnea from incident, trouble recalling whether or not he is taking his medications. Family previously concerned for mentation including slurred speech and slow responses. Allergies No Known Allergies Allergy (Unverified 11/13/24 15:32) Home Medications: Metoprolol Succinate [Toprol Xl] 100 mg PO DAILY 11/13/24 Warfarin Sodium 5 mg PO DAILY 11/13/24 Warfarin Sodium [Coumadin] 2.5 mg PO DAILY 11/13/24 - Past Medical/Surgical History Diabetic: No -: Obesity -: Chronic A-fib -: Long-term use of anticoagulants -: Chronic combined systolic and diastolic heart failure -: medication non-compliance - Social History CD- Drugs: No Caffeine use: Yes Place of Residence: Home Review of Systems is unable to be obtained Physical Examination Temp Pulse Resp BP Pulse Ox 98.1 F 80 18 126/78 94 11/20/24 12:00 11/20/24 12:00 11/20/24 12:00 11/20/24 12:00 11/20/24 12:00 General: Alert, Delirious, Unresponsive Respiratory: Clear to auscultation bilaterally Cardiovascular: Edema (2 plus bialteral) - Problems (1) Respiratory failure with hypoxia and hypercapnia Current Visit: Yes Status: Acute Plan: Patient is 68 years of age admitted with altered mental status hallucination respiratory failure bicarbonate is elevated patient is clearly hypoxic hypercapnic hypoxic may have underlying diastolic heart failure I have added spironolactone continue with Diamox may have underlying obesity hypoventilation syndrome or severe sleep apnea. Plan to arrange for a noninvasive ventilator at home will benefit from to prevent readmissions all labs reviewed chest x-ray is reviewed possible evidence of volume overload BNP was over 7000 patient's thyroid function is normal recheck arterial blood gases possible transfer to the ICU add bronchodilators possible and underlying airway obstruction
[2024-11-20] MEDS: SPIRONOLACTONE 25 MG TABLET PO SCH (13:40)
[2024-11-20] MEDS: THIAMINE 200 MG/2 ML INJ IVP SCH (13:41)
[2024-11-20 14:44] LABS: Blood Gas Inspired Oxygen 21.0 %
[2024-11-20 14:47] LABS: Blood O2 Saturation 76.6 % (92.0-98.5)
--- NOTE | 2024-11-20 15:24 | P.PN ---
Subjective Date of Service: 11/20/24 Primary Care Provider: Mey Jewell MD Chief Complaint: CHF exacerbation Patient is confused today. No reported agitation. Patient maintained on 3 L oxygen by nasal cannula. Physical Examination - Vital Signs Temperature: 98.1 F Blood Pressure: 126/78 Pulse: 80 Respirations: 18 Pulse Ox (%): 94 - Studies Medications List Reviewed: No Assessment And Plan - Plan Physical examination General: Alert and oriented x 1, NAD, morbidly obese Neck: Supple, no elevated JVD Heart: Heart sounds 1 and 2 normal, regular rhythm, normal rate, 2+ bilateral lower extremity pitting edema Lungs: Clear to auscultation bilaterally, diminished breath sounds bilaterally, no rhonchi or crackles. Abdomen: Soft, obese abdomen, abdominal wall edema, nontender, normal bowel sounds. Extremities: No tenderness, no deformity Skin: Normal skin turgor, no nodules or ulcers. Neuro: No focal motor deficit. Psychiatry: No agitation. Plan: HFpEF, in acute exacerbation: Improving Anasarca, improving Aortic stenosis, mild to moderate, chronic stable Acute on chronic hypercapnic respiratory failure Deconditioning/weakness Atrial fibrillation Fluid restriction <1500 ml/day. Continue Diamox 250 mg twice daily. Pulmonary Dr. Espinal evaluated patient. Repeat blood gas shows persistent CO2 retention Continues BiPAP recommended by Dr. Espinal. Patient transferred to ICU for continuous BiPAP. Pulmonary recommending NIV as an outpatient. Monitor and optimize electrolyte Continue PT. Acute metabolic encephalopathy secondary to CO2 retention. Hallucinations, visual and auditory, resolved CT head negative Hallucinations AMS likely related to CO2 narcosis Continuous BiPAP recommended by pulmonary. Continue thiamine Avoid sedating medications A-fib, currently CVR Rate controlled on metoprolol XL 100 mg daily Cardiology evaluated patient. warfarin changed to Xarelto per cardiology recommended Continue Xarelto 20 mg daily Coumadin toxicity, resolved Supratherapeutic INR, resolved CT CAP and head without concern for bleeding Hypervolemic hyponatremia Stable Continue Diamox 1.5 L fluid restriction Monitor BMP daily Alcoholic liver disease Thrombocytopenia resolved Anasarca Continue Diamox. Monitor CBC, LFTs Hypothyroidism, mild TSH 4.950, free T4 1.47 Follow-up with PCP for monitoring Dispo: Home with home health.
[2024-11-21] MEDS: DIPHENHYDRAMINE 25 MG TAB/CAP PO ONE (01:28)
[2024-11-21 05:05] LABS: Absolute Lymphocytes (CBC) 1.3 K/uL (0.7-4.9); Hematocrit 37.5 % (39.6-49.0); Hemoglobin 12.0 g/dL (13.6-17.9); MCH 29.4 pg (27.0-35.0); MCHC 32.0 g/dL (32.0-36.0); MCV 91.8 fL (80-100); MPV 8.6 fL (7.6-11.3); Nucleated RBC Absolute Count 0.0 (0-0); Nucleated Red Blood Cells % 0.2 % (0-0); RBC Red Blood Cell Count 4.08 M/uL (4.33-5.43); White Blood Count 5.90 thou/uL (4.3-10.9)
[2024-11-21 05:28] LABS: ALT/SGPT 19.0 U/L (16-61); AST/SGOT 14.0 U/L (15-37); Albumin 3.0 g/dL (3.4-5.0); Albumin/Globulin Ratio 0.7 (1.1-1.8); Alkaline Phosphatase 90.0 U/L (45-117); Anion Gap 5.2 mEq/L (5.0-15.0); BUN Blood Urea Nitrogen 16.0 mg/dL (7-18); Globulin 4.6 g/dL (2.3-3.5); Glucose Level 85.0 mg/dL (74-106); Magnesium 2.1 mg/dL (1.6-2.4); Potassium 4.2 mEq/L (3.5-5.1)
--- NOTE | 2024-11-21 10:36 | RAD REPORT ---
EXAMINATION: ONE VIEW CHEST XR CLINICAL INDICATION: Male, 68 years old.,[facility] TECHNIQUE: Frontal chest projection is submitted. Examination is limited by patient positioning and t echnique. COMPARISON: 11/13/2024 FINDINGS: The lungs are suboptimally inflated. This limits evaluation. Central interstitial prominence and hazy right mid to lower lung opacities, not significantly changed. Suspected pleural effusions, at least small. No pneumothorax. The heart is unchanged in size. Mediastinal contours are unremarkable. IMPRESSION: Stable findings most suggestive of pulmonary edema.
--- NOTE | 2024-11-21 12:42 | P.PN ---
Subjective Date of Service: 11/21/24 Primary Care Provider: Mey Jewell MD Chief Complaint: CHF exacerbation respiratory failure No change in patient's condition is noncompliant with BiPAP is delirious Review of Systems is unable to be obtained Physical Examination - Vital Signs Temperature: 98.2 F Blood Pressure: 139/74 Pulse: 84 Respirations: 22 Pulse Ox (%): 98 - Physical Exam General: Delirious Respiratory: Clear to auscultation bilaterally, Diminished Cardiovascular: Normal S1 S2, Edema - Studies Medications List Reviewed: No Assessment And Plan - Current Problems (Diagnosis) (1) Respiratory failure with hypoxia and hypercapnia Current Visit: Yes Status: Acute Plan: Patient admitted with hypoxic hypercapnic respiratory failure presumed underlying diastolic dysfunction noncompliant with BiPAP labs chemistries reviewed continue with present medication Qualifiers: Chronicity: unspecified Qualified Code(s): J96.91 - Respiratory failure, unspecified with hypoxia; J96.92 - Respiratory failure, unspecified with hypercapnia
--- NOTE | 2024-11-21 17:41 | P.PN ---
Subjective Date of Service: 11/21/24 Primary Care Provider: Mey Jewell MD Chief Complaint: CHF exacerbation respiratory failure Patient remained confused however he seems more responsive. No reported agitation. He has used BiPAP continuously since being in the ICU. Physical Examination - Vital Signs Temperature: 98.2 F Blood Pressure: 104/58 Pulse: 81 Respirations: 16 Pulse Ox (%): 98 - Studies Medications List Reviewed: No Assessment And Plan - Plan Physical examination General: Alert and oriented x 1, NAD, morbidly obese Heart: Heart sounds 1 and 2 normal, regular rhythm, normal rate, 2+ bilateral lower extremity pitting edema Lungs: Clear to auscultation bilaterally, diminished breath sounds bilaterally, no rhonchi or crackles. Abdomen: Soft, obese abdomen, abdominal wall edema, nontender, normal bowel sounds. Extremities: No tenderness, no deformity Skin: Normal skin turgor, mild erythema bilateral flanks Neuro: No focal motor deficit. Psychiatry: No agitation. Plan: HFpEF, in acute exacerbation: Improving Anasarca, improving Aortic stenosis, mild to moderate, chronic stable Acute on chronic hypercapnic respiratory failure Deconditioning/weakness Atrial fibrillation Fluid restriction <1500 ml/day. Continue Diamox 250 mg twice daily. Pulmonary Dr. Espinal evaluated patient. Serial blood gas showed persistent CO2 retention Continuous BiPAP as recommended by Dr. Espinal. Pulmonary recommending NIV as an outpatient. Continue ICU care Monitor and optimize electrolyte Continue PT-bed mobility for now. Acute metabolic encephalopathy secondary to CO2 retention. Hallucinations, visual and auditory, resolved CT head negative Hallucinations AMS likely related to CO2 narcosis Continuous BiPAP recommended by pulmonary. Continue thiamine Avoid sedating medications A-fib, currently CVR Rate controlled on metoprolol XL 100 mg daily Cardiology evaluated patient. warfarin changed to Xarelto per cardiology recommended Continue Xarelto 20 mg daily Coumadin toxicity, resolved Supratherapeutic INR, resolved CT CAP and head without concern for bleeding Hypervolemic hyponatremia Stable, no change. Continue Diamox 1.5 L fluid restriction Monitor BMP daily Abdominal wall cellulitis Start IV Rocephin and Vanco after blood cultures. Alcoholic liver disease Thrombocytopenia resolved Anasarca Continue Diamox. Monitor CBC, LFTs Hypothyroidism, mild TSH 4.950, free T4 1.47 Follow-up with PCP for monitoring Dispo: Home with home health.
[2024-11-21] MEDS: VANCOMYCIN 2 GM in NA CHLORIDE 0.9% 500 ML IVPB SCH (21:34)
[2024-11-22 06:03] LABS: Absolute Lymphocytes (CBC) 1.2 K/uL (0.7-4.9); Hematocrit 38.9 % (39.6-49.0); Hemoglobin 12.4 g/dL (13.6-17.9); MCH 29.4 pg (27.0-35.0); MCHC 31.8 g/dL (32.0-36.0); MCV 92.4 fL (80-100); MPV 8.7 fL (7.6-11.3); Nucleated RBC Absolute Count 0.0 (0-0); Nucleated Red Blood Cells % 0.1 % (0-0); RBC Red Blood Cell Count 4.21 M/uL (4.33-5.43); White Blood Count 6.30 thou/uL (4.3-10.9)
[2024-11-22 06:16] LABS: Anion Gap 5.4 mEq/L (5.0-15.0); BUN Blood Urea Nitrogen 16.0 mg/dL (7-18); Glucose Level 86.0 mg/dL (74-106); Potassium 4.4 mEq/L (3.5-5.1)
--- NOTE | 2024-11-22 08:51 | RAD REPORT ---
EXAMINATION: ONE VIEW CHEST XR CLINICAL INDICATION: Male, 68 years old.,[facility] TECHNIQUE: Frontal chest projection is submitted. Examination is limited by patient positioning and t echnique. COMPARISON: 11/21/2024 FINDINGS: Progressive hazy central airspace opacities. Progressive right basal effusion. No pneumothorax. Stab le cardiomegaly. Mediastinal contours are unremarkable. IMPRESSION: Progressive findings of pulmonary edema as above.
[2024-11-22] MEDS: CEFTRIAXONE 1,000 MG in NA CHLORIDE 0.9% 50 ML IVPB SCH (10:15)
--- NOTE | 2024-11-22 12:52 | P.PN ---
Subjective Date of Service: 11/22/24 Primary Care Provider: Mey Jewell MD Chief Complaint: CHF exacerbation respiratory failure No change in patient's condition is still encephalopathic ammonia level is is elevated not sure about prior history of cirrhosis of the liver Review of Systems is unable to be obtained Physical Examination - Vital Signs Temperature: 98.1 F Blood Pressure: 127/70 Pulse: 83 Respirations: 14 Pulse Ox (%): 100 - Physical Exam General: Alert, Delirious Respiratory: Clear to auscultation bilaterally, Diminished Cardiovascular: Normal S1 S2, Edema - Studies Medications List Reviewed: No Assessment And Plan - Current Problems (Diagnosis) (1) Respiratory failure with hypoxia and hypercapnia Current Visit: Yes Status: Acute Plan: Patient is intermittently using his BiPAP Qualifiers: Chronicity: unspecified Qualified Code(s): J96.91 - Respiratory failure, unspecified with hypoxia; J96.92 - Respiratory failure, unspecified with hypercapnia (2) Encephalopathy Current Visit: Yes Status: Acute Plan: Quite possible he has underlying liver disease although his LFTs are normal ammonia level is elevated will do an ultrasound of the liver possibility of an abdominal infection was started on antibiotics chemistries reviewed white count is normal Qualifiers: Encephalopathy type: unspecified encephalopathy Qualified Code(s): G93.40 - Encephalopathy, unspecified
--- NOTE | 2024-11-22 14:29 | P.PN ---
Subjective Date of Service: 11/22/24 Primary Care Provider: Mey Jewell MD Chief Complaint: CHF exacerbation respiratory failure Patient remained confused. He is only oriented to self. According to nursing reports patient refused to use BiPAP last night. No agitation Physical Examination - Vital Signs Temperature: 98.1 F Blood Pressure: 127/70 Pulse: 83 Respirations: 14 Pulse Ox (%): 100 - Studies Medications List Reviewed: No Assessment And Plan - Plan Physical examination General: Alert and oriented x 1, NAD, morbidly obese Heart: Heart sounds 1 and 2 normal, regular rhythm, normal rate, 2+ bilateral lower extremity pitting edema Lungs: Clear to auscultation bilaterally, diminished breath sounds bilaterally, no rhonchi or crackles. Abdomen: Soft, obese abdomen, abdominal wall edema, nontender, normal bowel sounds. Extremities: No tenderness, no deformity Skin: Normal skin turgor, mild erythema bilateral flanks Neuro: No focal motor deficit. Psychiatry: No agitation. Plan: HFpEF, in acute exacerbation: Improving Anasarca, improving Aortic stenosis, mild to moderate, chronic stable Acute on chronic hypercapnic respiratory failure Deconditioning/weakness Atrial fibrillation Fluid restriction <1500 ml/day. Continue Diamox 250 mg twice daily. Pulmonary Dr. Espinal evaluated patient. Serial blood gas showed persistent CO2 retention Continuous BiPAP as recommended by Dr. Espinal. Pulmonary recommending NIV as an outpatient. Continue ICU care Monitor and optimize electrolyte Continue PT-bed mobility for now. Acute metabolic encephalopathy secondary to CO2 retention. Hallucinations, visual and auditory, resolved CT head negative Hallucinations AMS likely related to CO2 narcosis Continuous BiPAP recommended by pulmonary. Continue thiamine Avoid sedating medications A-fib, currently CVR Rate controlled on metoprolol XL 100 mg daily Cardiology evaluated patient. warfarin changed to Xarelto per cardiology recommended Continue Xarelto 20 mg daily Coumadin toxicity, resolved Supratherapeutic INR, resolved CT CAP and head without concern for bleeding Hypervolemic hyponatremia Stable, no change. Continue Diamox 1.5 L fluid restriction Monitor BMP daily Abdominal wall cellulitis Start IV Rocephin and Vanco after blood cultures. Alcoholic liver disease Thrombocytopenia resolved Anasarca Continue Diamox. Monitor CBC, LFTs Hypothyroidism, mild TSH 4.950, free T4 1.47 Follow-up with PCP for monitoring 11/22/2024 1. Patient remained confused. Continue BiPAP. Outpatient NIV ordered by pulmonary Dr. Espinal. Bronchodilators as needed. Continue Diamox 2. A-fib is rate controlled on metoprolol XL. Continue Xarelto 3. Continue IV antibiotics for cellulitis. Blood cultures pending. 4. Monitor. Patient to follow hyponatremia. Dispo: Home with home health.
--- NOTE | 2024-11-22 17:25 | RAD REPORT ---
Liver Only: 11/22/2024 4:59 PM CLINICAL HISTORY: Evaluate for cirrhosis STUDY: Limited right upper quadrant ultrasound of abdomen. COMPARISON: None. FINDINGS: Liver: Hepatomegaly. Evaluation limited due to patient body habitus. Liver was measured at 21 cm. Con tour and echotexture of the liver not adequately visualized. Bile ducts: No intrahepatic or extrahepatic biliary ductal dilatation. Common bile duct measures 4 mm. Gallbladder: Not visualized. IMPRESSION: Hepatomegaly. Unable to adequately assess for cirrhosis given patient body habitus and limited penetr ation
[2024-11-22] MEDS: LACTULOSE 20 GM/30 ML UCUP PO SCH (20:28)
[2024-11-22] MEDS: DIPHENHYDRAMINE 25 MG TAB/CAP PO PRN (21:22)
[2024-11-22] MEDS ORDERED: METOPROLOL TARTRATE 5 MG/5 ML INJ IV PRN (22:18)
[2024-11-23 04:41] VITALS: BMI 39.2
[2024-11-23 05:41] LABS: Absolute Lymphocytes (CBC) 1.2 K/uL (0.7-4.9); Hematocrit 38.7 % (39.6-49.0); Hemoglobin 12.3 g/dL (13.6-17.9); MCH 29.2 pg (27.0-35.0); MCHC 31.9 g/dL (32.0-36.0); MCV 91.7 fL (80-100); MPV 8.9 fL (7.6-11.3); Nucleated RBC Absolute Count 0.0 (0-0); Nucleated Red Blood Cells % 0.0 % (0-0); RBC Red Blood Cell Count 4.22 M/uL (4.33-5.43); White Blood Count 6.30 thou/uL (4.3-10.9)
[2024-11-23 05:56] LABS: Anion Gap 5.1 mEq/L (5.0-15.0); BUN Blood Urea Nitrogen 13.0 mg/dL (7-18); Glucose Level 86.0 mg/dL (74-106); Magnesium 2.0 mg/dL (1.6-2.4); Potassium 4.1 mEq/L (3.5-5.1)
--- NOTE | 2024-11-23 12:34 | P.PN ---
Subjective Date of Service: 11/23/24 Primary Care Provider: Mey Jewell MD Chief Complaint: CHF exacerbation respiratory failure Patient remain confused. He is only oriented to self. No changes from yesterday Patient has been refusing to wear the BiPAP. Physical Examination - Vital Signs Temperature: 99.2 F Blood Pressure: 149/100 Pulse: 81 Respirations: 22 Pulse Ox (%): 99 - Studies Medications List Reviewed: No Assessment And Plan - Plan Physical examination General: Alert and oriented x 1, NAD, morbidly obese Heart: Heart sounds 1 and 2 normal, regular rhythm, normal rate, 2+ bilateral lower extremity pitting edema Lungs: Clear to auscultation bilaterally, diminished breath sounds bilaterally, no rhonchi or crackles. Abdomen: Soft, obese abdomen, abdominal wall edema, nontender, normal bowel sounds. Extremities: No tenderness, no deformity Skin: Normal skin turgor, mild erythema bilateral flanks Neuro: No focal motor deficit. Psychiatry: No agitation. Plan: HFpEF, in acute exacerbation: Improving Anasarca, improving Aortic stenosis, mild to moderate, chronic stable Acute on chronic hypercapnic respiratory failure Deconditioning/weakness Atrial fibrillation Fluid restriction <1500 ml/day. Continue Diamox 250 mg twice daily. Pulmonary Dr. Espinal evaluated patient. Serial blood gas showed persistent CO2 retention Continuous BiPAP as recommended by Dr. Espinal. Pulmonary recommending NIV as an outpatient. Continue ICU care Monitor and optimize electrolyte Continue PT-bed mobility for now. Acute metabolic encephalopathy secondary to CO2 retention. Hallucinations, visual and auditory, resolved CT head negative Hallucinations AMS likely related to CO2 narcosis Continuous BiPAP recommended by pulmonary. Continue thiamine Avoid sedating medications A-fib, currently CVR Rate controlled on metoprolol XL 100 mg daily Cardiology evaluated patient. warfarin changed to Xarelto per cardiology recommended Continue Xarelto 20 mg daily Coumadin toxicity, resolved Supratherapeutic INR, resolved CT CAP and head without concern for bleeding Hypervolemic hyponatremia Stable, no change. Continue Diamox 1.5 L fluid restriction Monitor BMP daily Abdominal wall cellulitis Start IV Rocephin and Vanco after blood cultures. Alcoholic liver disease Thrombocytopenia resolved Anasarca Continue Diamox. Monitor CBC, LFTs Hypothyroidism, mild TSH 4.950, free T4 1.47 Follow-up with PCP for monitoring 11/22/2024 1. Patient remained confused. Continue BiPAP. Outpatient NIV ordered by pulmonary Dr. Espinal. Bronchodilators as needed. Continue Diamox 2. A-fib is rate controlled on metoprolol XL. Continue Xarelto 3. Continue IV antibiotics for cellulitis. Blood cultures pending. 4. Monitor. Patient to follow hyponatremia. 11/23/2024 1. Acute metabolic encephalopathy secondary to combination of CO2 retention and hepatic encephalopathy. CO2 retention improved, ammonia level was 76 yesterday. Patient started on lactulose. Continue Aldactone. BiPAP as tolerated. Neuro checks. 2. Heart rate is rate controlled on metoprolol XL. Continue current dose of Toprol-XL and Xarelto 3. Blood culture shows no growth to date. Continue antibiotics for possible cellulitis. 4. Continue Diamox for anasarca. DVT prophylaxis: Xarelto CODE STATUS: full code Dispo: Home with home health.
[2024-11-23] MEDS: VANCOMYCIN 2 GM in NA CHLORIDE 0.9% 500 ML IVPB SCH (17:22)
[2024-11-24 06:57] LABS: Absolute Lymphocytes (CBC) 1.2 K/uL (0.7-4.9); Hematocrit 37.9 % (39.6-49.0); Hemoglobin 12.2 g/dL (13.6-17.9); MCH 29.3 pg (27.0-35.0); MCHC 32.1 g/dL (32.0-36.0); MCV 91.3 fL (80-100); MPV 9.7 fL (7.6-11.3); Nucleated RBC Absolute Count 0.0 (0-0); Nucleated Red Blood Cells % 0.2 % (0-0); RBC Red Blood Cell Count 4.15 M/uL (4.33-5.43); White Blood Count 6.80 thou/uL (4.3-10.9)
[2024-11-24 07:19] LABS: ALT/SGPT 16.0 U/L (16-61); Albumin 2.9 g/dL (3.4-5.0); Albumin/Globulin Ratio 0.6 (1.1-1.8); Alkaline Phosphatase 114.0 U/L (45-117); Anion Gap 6.0 mEq/L (5.0-15.0); BUN Blood Urea Nitrogen 12.0 mg/dL (7-18); Globulin 4.8 g/dL (2.3-3.5); Glucose Level 96.0 mg/dL (74-106)
[2024-11-24 07:23] LABS: AST/SGOT 19.0 U/L (15-37); Potassium 4.0 mEq/L (3.5-5.1)
--- NOTE | 2024-11-24 14:28 | P.PN ---
Subjective Date of Service: 11/24/24 Primary Care Provider: Mey Jewell MD Chief Complaint: CHF exacerbation respiratory failure No major changes from yesterday. Patient remain confused, oriented only to person. Physical Examination - Vital Signs Temperature: 98.4 F Blood Pressure: 134/87 Pulse: 89 Respirations: 18 Pulse Ox (%): 98 - Studies Medications List Reviewed: No Assessment And Plan - Plan Physical examination General: Confused, oriented x 1, NAD, morbidly obese Heart: Heart sounds 1 and 2 normal, regular rhythm, normal rate, 2+ bilateral lower extremity pitting edema Lungs: Clear to auscultation bilaterally, diminished breath sounds bilaterally, no rhonchi or crackles. Abdomen: Soft, obese abdomen, abdominal wall edema, nontender, normal bowel sounds. Extremities: No tenderness, no deformity Skin: Normal skin turgor, abdominal wall erythema resolved. Neuro: No focal motor deficit. Psychiatry: No agitation. Plan: HFpEF, in acute exacerbation: Improving Anasarca, improving Aortic stenosis, mild to moderate, chronic stable Acute on chronic hypercapnic respiratory failure Deconditioning/weakness Atrial fibrillation Fluid restriction <1500 ml/day. Continue Diamox 250 mg twice daily. Pulmonary Dr. Espinal evaluated patient. Serial blood gas showed persistent CO2 retention Continuous BiPAP as recommended by Dr. Espinal. Pulmonary recommending NIV as an outpatient. Continue ICU care Monitor and optimize electrolyte Continue PT-bed mobility for now. Acute metabolic encephalopathy secondary to CO2 retention. Hallucinations, visual and auditory, resolved CT head negative Hallucinations AMS likely related to CO2 narcosis Continuous BiPAP recommended by pulmonary. Continue thiamine Avoid sedating medications A-fib, currently CVR Rate controlled on metoprolol XL 100 mg daily Cardiology evaluated patient. warfarin changed to Xarelto per cardiology recommended Continue Xarelto 20 mg daily Coumadin toxicity, resolved Supratherapeutic INR, resolved CT CAP and head without concern for bleeding Hypervolemic hyponatremia Stable, no change. Continue Diamox 1.5 L fluid restriction Monitor BMP daily Abdominal wall cellulitis Start IV Rocephin and Vanco after blood cultures. Alcoholic liver disease Thrombocytopenia resolved Anasarca Continue Diamox. Monitor CBC, LFTs Hypothyroidism, mild TSH 4.950, free T4 1.47 Follow-up with PCP for monitoring 11/22/2024 1. Patient remained confused. Continue BiPAP. Outpatient NIV ordered by pulmonary Dr. Espinal. Bronchodilators as needed. Continue Diamox 2. A-fib is rate controlled on metoprolol XL. Continue Xarelto 3. Continue IV antibiotics for cellulitis. Blood cultures pending. 4. Monitor. Patient to follow hyponatremia. 11/23/2024 1. Acute metabolic encephalopathy secondary to combination of CO2 retention and hepatic encephalopathy. CO2 retention improved, ammonia level was 76 yesterday. Patient started on lactulose. Continue Aldactone. BiPAP as tolerated. Neurochecks. 2. Heart rate is rate controlled on metoprolol XL. Continue current dose of Toprol-XL and Xarelto 3. Blood culture shows no growth to date. Continue antibiotics for possible cellulitis. 4. Continue Diamox for anasarca. 11/24/2024 1. Mental status is improving slowly, however protracted response to treatment. Continue lactulose for hepatic encephalopathy. Continue BiPAP as tolerated. Awaiting NIV arrangement, bronchodilators as needed. 2. Continue metoprolol and Xarelto 3. Continue empiric antibiotics. 4. Continue Diamox for anasarca. DVT prophylaxis: Xarelto CODE STATUS: full code Dispo: Home with home health.
[2024-11-25 08:48] LABS: Absolute Lymphocytes (CBC) 1.3 K/uL (0.7-4.9); Hematocrit 40.3 % (39.6-49.0); Hemoglobin 13.0 g/dL (13.6-17.9); MCH 29.4 pg (27.0-35.0); MCHC 32.2 g/dL (32.0-36.0); MCV 91.3 fL (80-100); MPV 9.4 fL (7.6-11.3); Nucleated RBC Absolute Count 0.0 (0-0); Nucleated Red Blood Cells % 0.1 % (0-0); RBC Red Blood Cell Count 4.42 M/uL (4.33-5.43); White Blood Count 6.40 thou/uL (4.3-10.9)
[2024-11-25 09:04] LABS: Anion Gap 5.8 mEq/L (5.0-15.0); BUN Blood Urea Nitrogen 11.0 mg/dL (7-18); Glucose Level 87.0 mg/dL (74-106); Potassium 3.8 mEq/L (3.5-5.1)
--- NOTE | 2024-11-25 16:15 | P.PN ---
Subjective Date of Service: 11/25/24 Primary Care Provider: Mey Jewell MD Chief Complaint: CHF exacerbation respiratory failure Patient seems to be more awake and interactive today. No reported agitation. Physical Examination - Vital Signs Temperature: 98.0 F Blood Pressure: 144/74 Pulse: 92 Respirations: 16 Pulse Ox (%): 94 - Studies Medications List Reviewed: No Assessment And Plan - Plan Physical examination General: Confused, oriented x 1, NAD, morbidly obese Heart: Heart sounds 1 and 2 normal, regular rhythm, normal rate, 2+ bilateral lower extremity pitting edema Lungs: Clear to auscultation bilaterally, diminished breath sounds bilaterally, no rhonchi or crackles. Abdomen: Soft, obese abdomen, nontender, normal bowel sounds. Extremities: No tenderness, no deformity Skin: Normal skin turgor, abdominal wall erythema resolved. Neuro: No focal motor deficit. Psychiatry: No agitation. Plan: HFpEF, in acute exacerbation: Improving Anasarca, improving Aortic stenosis, mild to moderate, chronic stable Acute on chronic hypercapnic respiratory failure Deconditioning/weakness Atrial fibrillation Fluid restriction <1500 ml/day. Continue Diamox 250 mg twice daily. Pulmonary Dr. Espinal evaluated patient. Serial blood gas showed persistent CO2 retention Continuous BiPAP as recommended by Dr. Espinal. Pulmonary recommending NIV as an outpatient. Continue ICU care Monitor and optimize electrolyte Continue PT-bed mobility for now. Acute metabolic encephalopathy secondary to CO2 retention. Hallucinations, visual and auditory, resolved CT head negative Hallucinations AMS likely related to CO2 narcosis Continuous BiPAP recommended by pulmonary. Continue thiamine Avoid sedating medications A-fib, currently CVR Rate controlled on metoprolol XL 100 mg daily Cardiology evaluated patient. warfarin changed to Xarelto per cardiology recommended Continue Xarelto 20 mg daily Coumadin toxicity, resolved Supratherapeutic INR, resolved CT CAP and head without concern for bleeding Hypervolemic hyponatremia Stable, no change. Continue Diamox 1.5 L fluid restriction Monitor BMP daily Abdominal wall cellulitis Start IV Rocephin and Vanco after blood cultures. Alcoholic liver disease Thrombocytopenia resolved Anasarca Continue Diamox. Monitor CBC, LFTs Hypothyroidism, mild TSH 4.950, free T4 1.47 Follow-up with PCP for monitoring 11/22/2024 1. Patient remained confused. Continue BiPAP. Outpatient NIV ordered by pulmonary Dr. Espinal. Bronchodilators as needed. Continue Diamox 2. A-fib is rate controlled on metoprolol XL. Continue Xarelto 3. Continue IV antibiotics for cellulitis. Blood cultures pending. 4. Monitor. Patient to follow hyponatremia. 11/23/2024 1. Acute metabolic encephalopathy secondary to combination of CO2 retention and hepatic encephalopathy. CO2 retention improved, ammonia level was 76 yesterday. Patient started on lactulose. Continue Aldactone. BiPAP as tolerated. Neurochecks. 2. Heart rate is rate controlled on metoprolol XL. Continue current dose of Toprol-XL and Xarelto 3. Blood culture shows no growth to date. Continue antibiotics for possible cellulitis. 4. Continue Diamox for anasarca. 11/24/2024 1. Mental status is improving slowly, however protracted response to treatment. Continue lactulose for hepatic encephalopathy. Continue BiPAP as tolerated. Awaiting NIV arrangement, bronchodilators as needed. 2. Continue metoprolol and Xarelto 3. Continue empiric antibiotics. 4. Continue Diamox for anasarca. 11/25/2024 1. Continue BiPAP if possible, continue lactulose for hepatic encephalopathy, check ammonia level in a.m. Continue Aldactone. Repeat head CT due to to rule out CVA due to persistent confusion 2. Continue metoprolol and Xarelto for A-fib. Heart rate is controlled 3. Change IV antibiotics to to oral Levaquin for cellulitis. 4. Continue Diamox for anasarca. DVT prophylaxis: Xarelto CODE STATUS: full code Dispo: Pending improvement in mental status.
--- NOTE | 2024-11-25 22:29 | RAD REPORT ---
EXAMINATION: Head Brain Wo Cont CLINICAL INDICATION: Male, 68 years old.Altered mental status TECHNIQUE: Axial CT images from the skull base to the vertex without intravenous contrast. Coronal an d sagittal reformatted images were created from the data set. One or more of the following dose reduction techniques were used: Automated exposure control, adjustment of the mA and/or kV according to patient size, and/or iterative reconstruction. Unless otherwise specified, incidental findings do not require dedicated imaging follow-up. [id number]. COMPARISON: 01/14/2025 FINDINGS: INTRACRANIAL: No acute intracranial hemorrhage. No acute large vascular territory infarct. No hydroce phalus. No mass effect or midline shift. No significant white matter disease. VASCULATURE: No visualized abnormalities in the arteries or dural venous sinuses. SCALP/SKULL: No calvarial fracture identified. No acute soft tissue abnormality. SINUSES: The visualized paranasal sinuses are mostly clear. No significant mastoid fluid. IMPRESSION: No acute intracranial abnormality.
[2024-11-26] MEDS: LORazepam 2 MG/ML VIAL IV ONE (02:42)
[2024-11-26 05:29] LABS: Absolute Lymphocytes (CBC) 1.3 K/uL (0.7-4.9); Hematocrit 39.5 % (39.6-49.0); Hemoglobin 12.9 g/dL (13.6-17.9); MCH 29.6 pg (27.0-35.0); MCHC 32.6 g/dL (32.0-36.0); MCV 91.0 fL (80-100); MPV 9.3 fL (7.6-11.3); Nucleated RBC Absolute Count 0.0 (0-0); Nucleated Red Blood Cells % 0.3 % (0-0); RBC Red Blood Cell Count 4.34 M/uL (4.33-5.43); White Blood Count 6.10 thou/uL (4.3-10.9)
[2024-11-26 05:49] LABS: Anion Gap 5.8 mEq/L (5.0-15.0); BUN Blood Urea Nitrogen 12.0 mg/dL (7-18); Glucose Level 98.0 mg/dL (74-106); Potassium 3.8 mEq/L (3.5-5.1)
--- NOTE | 2024-11-26 09:56 | P.PN ---
Date of Service: 11/26/24 Subjective: confused and agitated overnight trying to get out of bed had to be reoriented several times continues with loose watery stools HR 80-90s Physical Exam: Gen: confused, Needs frequent reorientation CV: Regular rate and rhythm, 2+ bilateral lower extremity pitting edema Pulm: Nonlabored respirations on 3L NC, diminished bilaterally Abdomen: Soft, nontender, nondistended Integumentary: Abdominal wall erythema resolved Neuro: Normal strength, normal affect Problem List: Acute on chronic hypercapnic respiratory failure secondary to acute on chronic CHF exacerbation (HFpEF) Anasarca, improving Aortic stenosis, mild to moderate, chronic stable Acute metabolic/hepatic encephalopathy Hallucinations, visual and auditory, resolved Paroxysmal Atrial fibrillation on chronic anticoagulation Coumadin toxicity, resolved Supratherapeutic INR, resolved Hypervolemic hyponatremia Abdominal wall cellulitis Alcoholic liver disease Thrombocytopenia resolved Hypothyroidism, mild Acute on chronic hypercapnic respiratory failure secondary to acute on chronic CHF exacerbation (HFpEF) Anasarca, improving Aortic stenosis, mild to moderate, chronic stable on admission, presents with rapid HR associated with worsening shortness of breath, palpitations. Reports some degree of medication noncompliance. Cannot fully recall if he is taking all his medications. ABG showed elevated CO2. BiPAP as needed per pulm. CT chest/abd/pelvis: Mild fluid retention pattern seen with small pleural effusions, mild ascites and anasarca. Possible gallstones. Dr. Espinal recommending home NIV. in process of being setup. continue Diamox, spironolactone, brovana Cardio/Pulm is following Continue PT Acute metabolic/hepatic encephalopathy Hallucinations, visual and auditory, resolved CT head x2 negative for any acute findings Hallucinations likely related to CO2 narcosis Ammonia levels slightly improved compared to a few days ago 76 -> 64 Continue lactulose for hepatic encephalopathy. Continue thiamine Given ativan overnight Paroxysmal Atrial fibrillation on chronic anticoagulation Coumadin toxicity, resolved Supratherapeutic INR, resolved Cardiology is following; recommended switching warfarin to Xarelto Continue Xarelto and metoprolol HR rate controlled. Hypervolemic hyponatremia Monitor and replete electrolytes as needed Continue Diamox. Abdominal wall cellulitis IV vanc/Rocephin (11/22-11/25) deescalated to oral Levaquin Continue oral Levaquin (11/26-) Erythema improving Alcoholic liver disease Thrombocytopenia resolved liver u/s showed hepatomegaly. Continue Diamox. Labs stable. Hypothyroidism, mild TSH 4.950, free T4 1.47 Repeat studies in a few months VTE: Xarelto Code: DNR Dispo: Home, 2-3 days
[2024-11-26] MEDS: POTASSIUM 25 MEQ EFFERV TAB PO ONE (09:58)
[2024-11-27 06:41] LABS: Hematocrit 41.0 % (39.6-49.0); Hemoglobin 13.2 g/dL (13.6-17.9); MCH 29.3 pg (27.0-35.0); MCHC 32.3 g/dL (32.0-36.0); MCV 90.7 fL (80-100); MPV 8.4 fL (7.6-11.3); RBC Red Blood Cell Count 4.52 M/uL (4.33-5.43); White Blood Count 5.80 thou/uL (4.3-10.9)
[2024-11-27 07:02] LABS: ALT/SGPT 19.0 U/L (16-61); AST/SGOT 25.0 U/L (15-37); Albumin 2.8 g/dL (3.4-5.0); Albumin/Globulin Ratio 0.5 (1.1-1.8); Alkaline Phosphatase 132.0 U/L (45-117); Anion Gap 8.8 mEq/L (5.0-15.0); BUN Blood Urea Nitrogen 13.0 mg/dL (7-18); Globulin 5.3 g/dL (2.3-3.5); Glucose Level 83.0 mg/dL (74-106); Magnesium 1.9 mg/dL (1.6-2.4); Potassium 3.8 mEq/L (3.5-5.1)
[2024-11-27] MEDS: POTASSIUM CL SA 10 MEQ TAB PO ONE (08:41)
--- NOTE | 2024-11-27 11:41 | P.PN ---
Date of Service: 11/27/24 Subjective: remains confused with intermittent agitation tolerated BiPAP at night no new events, no significant change vitals stable Physical Exam: Gen: confused, Needs frequent reorientation CV: Regular rate and rhythm, 2+ bilateral lower extremity pitting edema Pulm: Nonlabored respirations on 2L NC, diminished bilaterally Abdomen: Soft, nontender, nondistended Integumentary: Abdominal wall erythema resolved Problem List: Acute on chronic hypercapnic respiratory failure secondary to acute on chronic CHF exacerbation (HFpEF) Anasarca, improving Aortic stenosis, mild to moderate, chronic stable Acute metabolic/hepatic encephalopathy Hallucinations, visual and auditory, resolved Paroxysmal Atrial fibrillation on chronic anticoagulation Coumadin toxicity, resolved Supratherapeutic INR, resolved Hypervolemic hyponatremia Abdominal wall cellulitis Alcoholic liver disease Thrombocytopenia resolved Hypothyroidism, mild Acute on chronic hypercapnic respiratory failure secondary to acute on chronic CHF exacerbation (HFpEF) Anasarca, improving Aortic stenosis, mild to moderate, chronic stable on admission, presents with rapid HR associated with worsening shortness of breath, palpitations. Reports some degree of medication noncompliance. Cannot fully recall if he is taking all his medications. ABG showed elevated CO2. BiPAP as needed per pulm. CT chest/abd/pelvis: Mild fluid retention pattern seen with small pleural effusions, mild ascites and anasarca. Possible gallstones. Dr. Espinal recommending home NIV. in process of being setup. continue Diamox, spironolactone, brovana Cardio/Pulm is following Continue PT Acute metabolic/hepatic encephalopathy Hallucinations, visual and auditory, resolved CT head x2 negative for any acute findings Hallucinations likely related to CO2 narcosis Continue lactulose, thiamine unclear exactly how much hepatic encephalopathy is at play. no imaging evidence of cirrhosis Paroxysmal Atrial fibrillation on chronic anticoagulation Coumadin toxicity, resolved Supratherapeutic INR, resolved Cardiology is following; recommended switching warfarin to Xarelto Continue Xarelto and metoprolol HR rate controlled. Hypervolemic hyponatremia Monitor and replete electrolytes as needed Continue Diamox. Abdominal wall cellulitis IV vanc/Rocephin (11/22-11/25) deescalated to oral Levaquin Continue oral Levaquin (11/26-) Erythema improving Alcoholic liver disease Thrombocytopenia resolved liver u/s showed hepatomegaly. Continue Diamox. Labs stable. Hypothyroidism, mild TSH 4.950, free T4 1.47 Repeat studies in a few months VTE: Xarelto Code: DNR Dispo: unclear, may need SNF
[2024-11-28 07:59] LABS: Absolute Lymphocytes (CBC) 1.4 K/uL (0.7-4.9); Hematocrit 39.5 % (39.6-49.0); Hemoglobin 12.9 g/dL (13.6-17.9); MCH 29.3 pg (27.0-35.0); MCHC 32.6 g/dL (32.0-36.0); MCV 90.0 fL (80-100); MPV 8.4 fL (7.6-11.3); Nucleated RBC Absolute Count 0.0 (0-0); Nucleated Red Blood Cells % 0.8 % (0-0); RBC Red Blood Cell Count 4.38 M/uL (4.33-5.43); White Blood Count 5.60 thou/uL (4.3-10.9)
[2024-11-28 08:17] LABS: ALT/SGPT 17.0 U/L (16-61); AST/SGOT 17.0 U/L (15-37); Albumin 2.7 g/dL (3.4-5.0); Albumin/Globulin Ratio 0.5 (1.1-1.8); Alkaline Phosphatase 132.0 U/L (45-117); Anion Gap 7.6 mEq/L (5.0-15.0); BUN Blood Urea Nitrogen 13.0 mg/dL (7-18); Globulin 5.0 g/dL (2.3-3.5); Glucose Level 88.0 mg/dL (74-106); Magnesium 1.8 mg/dL (1.6-2.4); Potassium 3.6 mEq/L (3.5-5.1)
[2024-11-28] MEDS: LACTULOSE 20 GM/30 ML UCUP PO SCH (09:35)
[2024-11-28] MEDS: POTASSIUM CL SA 10 MEQ TAB PO ONE (09:35)
[2024-11-28] MEDS: MAGNESIUM SULFATE 1 gm IVPB 1 GM/100 ML BAG IV ONE (09:36)
--- NOTE | 2024-11-28 10:43 | RAD REPORT ---
EXAMINATION: ONE VIEW CHEST XR CLINICAL INDICATION: f/u pulm edema/effusions, hypoxia TECHNIQUE: Frontal chest projection is submitted. Examination is limited by patient positioning and t echnique. COMPARISON: 11/22/2024 FINDINGS: Mild/moderate pulmonary edema. The heart is moderately enlarged. No displaced fractures identified. Trace pleural effusions. IMPRESSION: Mild improvement in CHF/volume overload since comparison radiograph
--- NOTE | 2024-11-28 12:31 | P.PN ---
Date of Service: 11/28/24 Subjective: Awake/alert with intermittent confusion/agitation using BiPAP at night BP low-normal afebrile more alert/awake today Physical Exam: Gen: AOx3 CV: Regular rate and rhythm, 1+ bilateral lower extremity pitting edema Pulm: Nonlabored respirations on 2L NC, diminished bilaterally Abdomen: Soft, nontender, nondistended Integumentary: Abdominal wall erythema resolved Problem List: Acute on chronic hypercapnic respiratory failure secondary to acute on chronic CHF exacerbation (HFpEF) Anasarca, improving Aortic stenosis, mild to moderate, chronic stable Acute metabolic/hepatic encephalopathy Hallucinations, visual and auditory, resolved Paroxysmal Atrial fibrillation on chronic anticoagulation Coumadin toxicity, resolved Supratherapeutic INR, resolved Hypervolemic hyponatremia Abdominal wall cellulitis Alcoholic liver disease Thrombocytopenia resolved Hypothyroidism, mild Acute on chronic hypercapnic respiratory failure secondary to acute on chronic CHF exacerbation (HFpEF) Anasarca, improving Aortic stenosis, mild to moderate, chronic stable on admission, presents with rapid HR associated with worsening shortness of breath, palpitations. Reports some degree of medication noncompliance. Cannot fully recall if he is taking all his medications. ABG showed elevated CO2. BiPAP as needed per pulm. CT chest/abd/pelvis: Mild fluid retention pattern seen with small pleural e ffusions, mild ascites and anasarca. Possible gallstones. Dr. Espinal recommending home NIV. in process of being setup. continue Diamox, spironolactone, brovana Cardio/Pulm is following Continue PT Acute metabolic/hepatic encephalopathy Hallucinations, visual and auditory, resolved CT head x2 negative for any acute findings Hallucinations likely related to CO2 narcosis Continue lactulose, thiamine unclear exactly how much hepatic encephalopathy is at play. no imaging evidence of cirrhosis he states it was started for constipation, denies liver issues in past. has not been taking at home due to it being too effective / diarrhea cut dose in half 11/28 T. bili slightly improved Paroxysmal Atrial fibrillation on chronic anticoagulation Coumadin toxicity, resolved Supratherapeutic INR, resolved Cardiology is following; recommended switching warfarin to Xarelto Continue Xarelto and metoprolol HR rate controlled. Hypervolemic hyponatremia Monitor and replete electrolytes as needed Continue Diamox. Abdominal wall cellulitis IV vanc/Rocephin (11/22-11/25) deescalated to oral Levaquin Continue oral Levaquin (11/26-) Erythema improving Alcoholic liver disease Thrombocytopenia resolved liver u/s showed hepatomegaly. Continue Diamox. Labs stable. Hypothyroidism, mild TSH 4.950, free T4 1.47 Repeat studies in a few months VTE: Xarelto Code: DNR Dispo: unclear, may need SNF vs HH pt prefers HH if possible doing better today, will see how he does with PT and his mentation
[2024-11-28] MEDS: ACETAMINOPHEN 325 MG TABLET PO PRN (18:08)
--- NOTE | 2024-11-29 06:56 | P.PN ---
Date of Service: 11/29/24 Subjective: working with PT sat in recliner and worked on transfers vitals stable no new issues Physical Exam: Gen: AOx3 CV: Regular rate and rhythm, 1+ bilateral lower extremity pitting edema Pulm: Nonlabored respirations on 2L NC, diminished bilaterally Abdomen: Soft, nontender, nondistended Integumentary: Abdominal wall erythema resolved Problem List: Acute on chronic hypercapnic respiratory failure secondary to acute on chronic CHF exacerbation (HFpEF) Anasarca, improving Aortic stenosis, mild to moderate, chronic stable Acute metabolic/hepatic encephalopathy Hallucinations, visual and auditory, resolved Paroxysmal Atrial fibrillation on chronic anticoagulation Coumadin toxicity, resolved Supratherapeutic INR, resolved Hypervolemic hyponatremia Abdominal wall cellulitis Alcoholic liver disease Thrombocytopenia resolved Hypothyroidism, mild Acute on chronic hypercapnic respiratory failure secondary to acute on chronic CHF exacerbation (HFpEF) Anasarca, improving Aortic stenosis, mild to moderate, chronic stable on admission, presents with rapid HR associated with worsening shortness of breath, palpitations. Reports some degree of medication noncompliance. Cannot fully recall if he is taking all his medications. ABG showed elevated CO2. BiPAP as needed per pulm. CT chest/abd/pelvis: Mild fluid retention pattern seen with small pleural effusions, mild ascites and anasarca. Possible gallstones. Dr. Espinal recommending home NIV. in process of being setup. continue Diamox, spironolactone, brovana Cardio/Pulm is following Continue PT Acute metabolic/hepatic encephalopathy Hallucinations, visual and auditory, resolved CT head x2 negative for any acute findings Hallucinations likely related to CO2 narcosis Continue lactulose, thiamine unclear exactly how much hepatic encephalopathy is at play. no imaging evidence of cirrhosis he states it was started for constipation, denies liver issues in past. has not been taking at home due to it being too effective / diarrhea cut dose in half 11/28 saw GI on 08/27/24 - GI stated no overt cirrhosis on imaging. Prior elevated ammonia could be multifactorial, likely CHF / acute illness. Has multiple risk factors for chronic liver dz (EToH abuse, CHF, obesity. att that time patient was focusing on comfort and didn't want further testing. Patient had stopped lactulose for some time prior to this appointment. stop miralax 11/29 switch lactulose to PRN Paroxysmal Atrial fibrillation on chronic anticoagulation Coumadin toxicity, resolved Supratherapeutic INR, resolved Cardiology is following; recommended switching warfarin to Xarelto Continue Xarelto and metoprolol HR rate controlled. Hypervolemic hyponatremia Monitor and replete electrolytes as needed Continue Diamox. Abdominal wall cellulitis IV vanc/Rocephin (11/22-11/25) deescalated to oral Levaquin Continue oral Levaquin (11/26-) Erythema improving Alcoholic liver disease Thrombocytopenia resolved liver u/s showed hepatomegaly. Continue Diamox. Labs stable. Hypothyroidism, mild TSH 4.950, free T4 1.47 Repeat studies in a few months VTE: Xarelto Code: DNR Dispo: unclear, may need SNF vs HH pt prefers if possible doing better today, will see how he does with PT and his mentation
[2024-11-29] MEDS ORDERED: LACTULOSE 20 GM/30 ML UCUP PO PRN (06:57)
[2024-11-30 06:33] LABS: Hematocrit 40.9 % (39.6-49.0); Hemoglobin 13.3 g/dL (13.6-17.9); MCH 29.2 pg (27.0-35.0); MCHC 32.6 g/dL (32.0-36.0); MCV 89.6 fL (80-100); MPV 8.5 fL (7.6-11.3); RBC Red Blood Cell Count 4.57 M/uL (4.33-5.43); White Blood Count 5.90 thou/uL (4.3-10.9)
[2024-11-30 06:54] LABS: AST/SGOT 12 U/L (15-37); Albumin 2.8 g/dL (3.4-5.0); Albumin/Globulin Ratio 0.5 (1.1-1.8); Alkaline Phosphatase 141 U/L (45-117); Anion Gap 9.7 mEq/L (5.0-15.0); BUN Blood Urea Nitrogen 17 mg/dL (7-18); Globulin 5.1 g/dL (2.3-3.5); Glucose Level 94 mg/dL (74-106); Magnesium 1.8 mg/dL (1.6-2.4); Potassium 3.7 mEq/L (3.5-5.1)
[2024-11-30 07:02] LABS: ALT/SGPT < 14 U/L (16-61)
[2024-11-30] MEDS: POTASSIUM CL SA 10 MEQ TAB PO ONE ×2 (08:15→08:35)
[2024-11-30] MEDS: MAGNESIUM SULFATE 1 gm IVPB 1 GM/100 ML BAG IV ONE (08:36)
--- NOTE | 2024-11-30 11:27 | P.PN ---
Date of Service: 11/30/24 Subjective: slowly improving with PT Off oxygen, breathing okay on room air at rest still desats to 84-90% during exercises with PT. SpO2 improves after resting for a few minutes tolerating BiPAP at night Physical Exam: Gen: AOx3 CV: Regular rate and rhythm, 1+ bilateral lower extremity pitting edema Pulm: Nonlabored respirations on room air, diminished bilaterally Abdomen: Soft, nontender, nondistended Integumentary: Abdominal wall erythema resolved Problem List: Acute on chronic hypercapnic respiratory failure secondary to acute on chronic CHF exacerbation (HFpEF) Anasarca, improving Aortic stenosis, mild to moderate, chronic stable Acute metabolic/hepatic encephalopathy Hallucinations, visual and auditory, resolved Paroxysmal Atrial fibrillation on chronic anticoagulation Coumadin toxicity, resolved Supratherapeutic INR, resolved Hypervolemic hyponatremia Abdominal wall cellulitis Alcoholic liver disease Thrombocytopenia resolved Hypothyroidism, mild Acute on chronic hypercapnic respiratory failure secondary to acute on chronic CHF exacerbation (HFpEF) Anasarca, improving Aortic stenosis, mild to moderate, chronic stable on admission, presents with rapid HR associated with worsening shortness of breath, palpitations. Reports some degree of medication noncompliance. Cannot fully recall if he is taking all his medications. ABG showed elevated CO2. BiPAP as needed per pulm. CT chest/abd/pelvis: Mild fluid retention pattern seen with small pleural effusions, mild ascites and anasarca. Possible gallstones. Dr. Espinal recommending home NIV. in process of being setup. continue Diamox, spironolactone, brovana check ABG 11/[address] Espinal Cardio/Pulm is following Continue PT Acute metabolic/hepatic encephalopathy Hallucinations, visual and auditory, resolved CT head x2 negative for any acute findings Hallucinations likely related to CO2 narcosis Continue lactulose, thiamine unclear exactly how much hepatic encephalopathy is at play. no imaging evidence of cirrhosis he states it was started for constipation, denies liver issues in past. has not been taking at home due to it being too effective / diarrhea cut dose in half 11/28 saw GI on 08/27/24 - GI stated no overt cirrhosis on imaging. Prior elevated ammonia could be multifactorial, likely CHF / acute illness. Has multiple risk factors for chronic liver dz (EToH abuse, CHF, obesity. att that time patient was focusing on comfort and didn't want further testing. Patient had stopped lactulose for some time prior to this appointment. stop miralax 11/29 switch lactulose to PRN Paroxysmal Atrial fibrillation on chronic anticoagulation Coumadin toxicity, resolved Supratherapeutic INR, resolved Cardiology is following; recommended switching warfarin to Xarelto Continue Xarelto and metoprolol HR rate controlled. Hypervolemic hyponatremia Monitor and replete electrolytes as needed Continue Diamox. Abdominal wall cellulitis IV vanc/Rocephin (11/22-11/25) deescalated to oral Levaquin Continue oral Levaquin (11/26-); Day 9 of abx Erythema improving Alcoholic liver disease Thrombocytopenia resolved liver u/s showed hepatomegaly. Continue Diamox. Labs stable. Hypothyroidism, mild TSH 4.950, free T4 1.47 Repeat studies in a few months VTE: Xarelto Code: DNR Dispo: unclear, may need SNF vs HH pt prefers if possible doing better today, will see how he does with PT and his mentation
[2024-12-01 06:08] LABS: Anion Gap 8.7 mEq/L (5.0-15.0); BUN Blood Urea Nitrogen 15.0 mg/dL (7-18); Glucose Level 94.0 mg/dL (74-106); Magnesium 1.9 mg/dL (1.6-2.4); Potassium 3.7 mEq/L (3.5-5.1)
[2024-12-01] MEDS: POTASSIUM 25 MEQ EFFERV TAB PO ONE (08:59)
--- NOTE | 2024-12-01 10:43 | P.PN ---
Date of Service: 12/01/24 Subjective: Doing okay. Breathing okay on RA tolerating BiPAP at night good UOP vitals stable Physical Exam: Gen: AOx3 CV: Regular rate and rhythm, 1+ bilateral lower extremity pitting edema Pulm: Nonlabored respirations on room air, diminished bilaterally Abdomen: Soft, nontender, nondistended Integumentary: Abdominal wall erythema resolved Problem List: Acute on chronic hypercapnic respiratory failure secondary to acute on chronic CHF exacerbation (HFpEF) Anasarca, improving Aortic stenosis, mild to moderate, chronic stable Acute metabolic/hepatic encephalopathy Hallucinations, visual and auditory, resolved Paroxysmal Atrial fibrillation on chronic anticoagulation Coumadin toxicity, resolved Supratherapeutic INR, resolved Hypervolemic hyponatremia Abdominal wall cellulitis Alcoholic liver disease Thrombocytopenia resolved Hypothyroidism, mild Acute on chronic hypercapnic respiratory failure secondary to acute on chronic CHF exacerbation (HFpEF) Anasarca, improving Aortic stenosis, mild to moderate, chronic stable on admission, presents with rapid HR associated with worsening shortness of breath, palpitations. Reports some degree of medication noncompliance. Cannot fully recall if he is taking all his medications. CT chest/abd/pelvis: Mild fluid retention pattern seen with small pleural effusions, mild ascites and anasarca. Possible gallstones. Dr. Espinal recommending home NIV. in process of being setup. continue Diamox, spironolactone, brovana ABG 11/20 showed elevated CO2. repeat ABG ordered 12/01 Cardio/Pulm is following Continue PT Acute metabolic/hepatic encephalopathy Hallucinations, visual and auditory, resolved CT head x2 negative for any acute findings Hallucinations likely related to CO2 narcosis Continue lactulose, thiamine unclear exactly how much hepatic encephalopathy is at play. no imaging evidence of cirrhosis he states it was started for constipation, denies liver issues in past. has not been taking at home due to it being too effective / diarrhea saw GI on 08/27/24 - GI stated no overt cirrhosis on imaging. Prior elevated ammonia could be multifactorial, likely CHF / acute illness. Has multiple risk factors for chronic liver dz (EToH abuse, CHF, obesity. att that time patient was focusing on comfort and didn't want further testing. Patient had stopped lactulose for some time prior to this appointment. stop miralax 11/29 switch lactulose to PRN Paroxysmal Atrial fibrillation on chronic anticoagulation Coumadin toxicity, resolved Supratherapeutic INR, resolved Cardiology is following; recommended switching warfarin to Xarelto Continue Xarelto and metoprolol HR rate controlled. Hypervolemic hyponatremia Monitor and replete electrolytes as needed Continue Diamox. Abdominal wall cellulitis IV vanc/Rocephin (11/22-11/25) deescalated to oral Levaquin Continue oral Levaquin (11/26-); Day 10 of abx Erythema improving Alcoholic liver disease Thrombocytopenia resolved liver u/s showed hepatomegaly. Continue Diamox. Labs stable. Hypothyroidism, mild TSH 4.950, free T4 1.47 Repeat studies in a few months VTE: Xarelto Code: DNR Dispo: unclear, may need SNF vs HH pt prefers if possible doing better today, will see how he does with PT and his mentation
--- NOTE | 2024-12-01 11:06 | P.PN ---
Subjective Date of Service: 11/30/24 Primary Care Provider: Mey Jewell MD Chief Complaint: CHF exacerbation respiratory failure Patient is doing much better today he is alert responsive cooperative no new complaints Review of Systems 10-point ROS is otherwise unremarkable Physical Examination - Vital Signs Temperature: 98.2 F Blood Pressure: 110/59 Pulse: 72 Respirations: 18 Pulse Ox (%): 93 - Physical Exam General: Alert, Oriented x3 Neck: Supple Respiratory: Clear to auscultation bilaterally Cardiovascular: No edema, Regular rate/rhythm, Normal S1 S2 - Studies Medications List Reviewed: No Assessment And Plan - Current Problems (Diagnosis) (1) Respiratory failure with hypoxia and hypercapnia Current Visit: Yes Status: Acute Plan: Patient admitted with hypoxic hypercapnic respiratory failure his mental status has improved significantly he has a previous history of alcohol abuse denies any smoking denies any pulmonary complaints repeat arterial blood gases add a bronchodilator possible discharge Qualifiers: Chronicity: unspecified Qualified Code(s): J96.91 - Respiratory failure, unspecified with hypoxia; J96.92 - Respiratory failure, unspecified with hypercapnia (2) Encephalopathy Current Visit: Yes Status: Acute Plan: Improved significantly labs chemistries reviewed Qualifiers: Encephalopathy type: unspecified encephalopathy Qualified Code(s): G93.40 - Encephalopathy, unspecified
[2024-12-01 12:01] LABS: Blood O2 Saturation 97.1 % (92.0-98.5)
[2024-12-02 08:15] LABS: Anion Gap 8.9 mEq/L (5.0-15.0); BUN Blood Urea Nitrogen 17.0 mg/dL (7-18); Glucose Level 89.0 mg/dL (74-106); Potassium 3.9 mEq/L (3.5-5.1)
--- NOTE | 2024-12-02 11:23 | P.PN ---
Date of Service: 12/02/24 Subjective: breathing feels easier. +satting > 91% on RA denies any pain good UOP no new issues Physical Exam: Gen: AOx3 CV: Regular rate and rhythm, 1+ bilateral lower extremity pitting edema Pulm: Nonlabored respirations on room air, diminished bilaterally Abdomen: Soft, nontender, nondistended Integumentary: Abdominal wall erythema resolved Problem List: Acute on chronic hypercapnic respiratory failure secondary to acute on chronic CHF exacerbation (HFpEF) Anasarca, improving Aortic stenosis, mild to moderate, chronic stable Acute metabolic/hepatic encephalopathy Hallucinations, visual and auditory, resolved Paroxysmal Atrial fibrillation on chronic anticoagulation Coumadin toxicity, resolved Supratherapeutic INR, resolved Hypervolemic hyponatremia Abdominal wall cellulitis Alcoholic liver disease Thrombocytopenia resolved Hypothyroidism, mild Acute on chronic hypercapnic respiratory failure secondary to acute on chronic CHF exacerbation (HFpEF) Anasarca, improving Aortic stenosis, mild to moderate, chronic stable on admission, presents with rapid HR associated with worsening shortness of breath, palpitations. Reports some degree of medication noncompliance. Cannot fully recall if he is taking all his medications. CT chest/abd/pelvis: Mild fluid retention pattern seen with small pleural effusions, mild ascites and anasarca. Possible gallstones. Dr. Espinal recommending home NIV. in process of being setup. continue Diamox, spironolactone, brovana ABG 11/20 showed elevated CO2. repeat ABG 12/01 normal. Cardio/Pulm is following Continue PT Acute metabolic/hepatic encephalopathy Hallucinations, visual and auditory, resolved CT head x2 negative for any acute findings Hallucinations likely related to CO2 narcosis Continue lactulose, thiamine unclear exactly how much hepatic encephalopathy is at play. no imaging evidence of cirrhosis he states it was started for constipation, denies liver issues in past. has not been taking at home due to it being too effective / diarrhea saw GI on 08/27/24 - GI stated no overt cirrhosis on imaging. Prior elevated ammonia could be multifactorial, likely CHF / acute illness. Has multiple risk f actors for chronic liver dz (EToH abuse, CHF, obesity. att that time patient was focusing on comfort and didn't want further testing. Patient had stopped lactulose for some time prior to this appointment. stop miralax 11/29 switch lactulose to PRN Paroxysmal Atrial fibrillation on chronic anticoagulation Coumadin toxicity, resolved Supratherapeutic INR, resolved Cardiology is following; recommended switching warfarin to Xarelto Continue Xarelto and metoprolol HR rate controlled. Hypervolemic hyponatremia Monitor and replete electrolytes as needed Continue Diamox. Abdominal wall cellulitis IV vanc/Rocephin (11/22-11/25) deescalated to oral Levaquin Continue oral Levaquin (11/26-); Day 11 of abx Erythema resolved Alcoholic liver disease Thrombocytopenia resolved liver u/s showed hepatomegaly. Continue Diamox. Labs stable. Hypothyroidism, mild TSH 4.950, free T4 1.47 Repeat studies in a few months VTE: Xarelto Code: DNR Dispo: unclear, may need SNF vs HH pt prefers if possible doing better today, will see how he does with PT and his mentation
[2024-12-03 07:07] LABS: Hematocrit 44.7 % (39.6-49.0); Hemoglobin 14.6 g/dL (13.6-17.9); MCH 29.2 pg (27.0-35.0); MCHC 32.7 g/dL (32.0-36.0); MCV 89.4 fL (80-100); MPV 8.3 fL (7.6-11.3); RBC Red Blood Cell Count 5.00 M/uL (4.33-5.43); White Blood Count 6.50 thou/uL (4.3-10.9)
[2024-12-03 07:24] LABS: Anion Gap 9.8 mEq/L (5.0-15.0); BUN Blood Urea Nitrogen 20.0 mg/dL (7-18); Glucose Level 96.0 mg/dL (74-106); Magnesium 2.2 mg/dL (1.6-2.4); Potassium 3.8 mEq/L (3.5-5.1)
[2024-12-03] MEDS: POTASSIUM CL SA 10 MEQ TAB PO ONE (08:57)
--- NOTE | 2024-12-03 15:23 | P.DS ---
Admission Date: 11/13/24 Discharge Date: 12/03/24 Primary Care Provider: Mey Jewell MD Disposition: DC HOME/HOME HEALTH CARE Reason for Admission: CHF exacerbation respiratory failure Brief History of Present Illness: 68-year-old male past medical history of obesity, chronic A-fib on anticoagulation, chronic combined systolic and diastolic heart failure, dyspnea, medication brought to the ED due to complaint of hallucinations, slurred speech and slow responses, and with rapid heart rate. In the ED, patient's heart rate reported to be in the 140s and SpO2 81% on room air. Patient was placed on supplemental O2 on arrival. Blood work showed elevated INR at 9.28, sodium 130, elevated LFTs and bilirubins, ammonia normal, troponin normal, BNP 7982. TSH 4.950 and free T4 1.47. Chest x-ray showed signs of pulmonary edema. Hospital Course: Patient admitted to the medical floor and the following medical problems addressed: Problem List: Acute on chronic hypercapnic respiratory failure secondary to acute on chronic CHF exacerbation (HFpEF) Anasarca, improving Aortic stenosis, mild to moderate, chronic stable Acute metabolic/hepatic encephalopathy Hallucinations, visual and auditory, resolved Paroxysmal Atrial fibrillation on chronic anticoagulation Coumadin toxicity, resolved Supratherapeutic INR, resolved Hypervolemic hyponatremia Abdominal wall cellulitis Alcoholic liver disease Thrombocytopenia resolved Hypothyroidism, mild Acute on chronic hypercapnic respiratory failure secondary to acute on chronic CHF exacerbation (HFpEF) Anasarca, improving Aortic stenosis, mild to moderate, chronic stable CT chest/abd/pelvis: Mild fluid retention pattern seen with small pleural effusions, mild ascites and anasarca. Possible gallstones. Patient was treated with IV Lasix, later switched to Diamox when his ABG showed CO2 retention. He was also treated with spironolactone and bronchodilators including Brovana. Patient mental status eventually improved, repeat ABG showed resolution of CO2 retention. Pulmonary Dr. Espinal was considering outpatient NIV, however the arrangement was discontinued given resolution of CO2 retention and patient tolerating room air. Patient functional status also improved and he was able to ambulate. He took a lap in the hallway with standby assist. Acute metabolic/hepatic encephalopathy Hallucinations, visual and auditory, resolved CT head done twice was negative for any acute findings Hallucinations likely related to CO2 narcosis Patient treated for possible hepatic encephalopathy with lactulose, thiamine given history of alcohol abuse. Ammonia level was only mildly elevated, and later improved to normal. Paroxysmal Atrial fibrillation on chronic anticoagulation Coumadin toxicity, resolved Supratherapeutic INR, resolved Patient noted to have atrial fibrillation. He was on chronic anticoagulation with warfarin. His INR was supratherapeutic on presentation Patient seen by cardiology Dr. Kidd and warfarin switched to Xareltoper Dr. Kidd recommendation Patient is on Toprol-XL which was continued during the hospital stay with no dose change HR rate was controlled. Hypervolemic hyponatremia Patient treated with Diamox Abdominal wall cellulitis Patient with redness in the anterior abdominal wall suspected to be related to abdominal cellulitis versus edema. Patient was treated with several days of IV antibiotics which was later transitioned to oral Levaquin. He completed about 12 days of antibiotics. Erythema resolved Alcoholic liver disease Thrombocytopenia resolved liver u/s showed hepatomegaly. Outpatient follow-up recommended Hypothyroidism, mild TSH 4.950, free T4 1.47 Repeat studies in a few months recommended. Vital Signs/Physical Exam: Temp Pulse Resp BP Pulse Ox 98.0 F 77 18 115/63 95 12/03/24 12:00 12/03/24 12:00 12/03/24 12:00 12/03/24 12:00 12/03/24 12:00 General: Alert, In no apparent distress, Oriented x3, Obese HEENT: Mucous membr. moist/pink, Sclerae nonicteric Neck: Supple, JVD not distended Respiratory: Clear to auscultation bilaterally, Normal air movement Cardiovascular: No edema, Regular rate/rhythm, Normal S1 S2 Gastrointestinal: Normal bowel sounds, Soft and benign, Non-distended, No tenderness Musculoskeletal: No swelling Neurological: Normal speech, Normal strength at 5/5 x4 extr, Cranial nerves 3-12 intact Laboratory Data at Discharge: WBC 6.50 thou/uL (4.3-10.9) 12/03/24 06:58 Hgb 14.6 g/dL (13.6-17.9) 12/03/24 06:58 Hct 44.7 % (39.6-49.0) 12/03/24 06:58 Plt Count 268 thou/uL (152-406) 12/03/24 06:58 PT 17.6 SECONDS (10-13.0) H 11/17/24 05:40 INR 1.58 11/17/24 05:40 Sodium 132 mEq/L (136-145) L 12/03/24 06:58 Potassium 3.8 mEq/L (3.5-5.1) 12/03/24 06:58 BUN 20 mg/dL (7-18) H 12/03/24 06:58 Creatinine 0.97 mg/dL (0.70-1.30) 12/03/24 06:58 Glucose 96 mg/dL (74-106) 12/03/24 06:58 Phosphorus 2.7 mg/dL (2.5-4.9) 11/21/24 04:52 Magnesium 2.2 mg/dL (1.6-2.4) 12/03/24 06:58 Total Bilirubin 1.7 mg/dL (0.2-1.0) H 11/30/24 06:13 AST 12 U/L (15-37) L 11/30/24 06:13 ALT < 14 U/L (16-61) L 11/30/24 06:13 Alkaline Phosphatase 141 U/L (45-117) H 11/30/24 06:13 Home Medications: Metoprolol Succinate [Toprol Xl] 100 mg PO DAILY 11/13/24 Docusate/Senna [Senokot-S*] 2 tab PO BEDTIME PRN #30 tab 12/03/24 Lactulose [Cephulac*] 30 ml PO DAILY PRN #237 ml 12/03/24 Metoprolol Succinate [Toprol Xl*] 100 mg PO [id number] #30 tab 12/03/24 Rivaroxaban [Xarelto] 20 mg PO DAILY #30 tab 12/03/24 Spironolactone [Aldactone*] 25 mg PO BID #60 tab 12/03/24 New Medications: Spironolactone [Aldactone*] 25 mg PO BID #60 tab Lactulose [Cephulac*] 30 ml PO DAILY PRN #237 ml PRN Reason: Constipation Docusate/Senna [Senokot-S*] 2 tab PO BEDTIME PRN #30 tab PRN Reason: CONSTIPATION-1ST LINE Metoprolol Succinate [Toprol Xl*] 100 mg PO [id number] #30 tab Rivaroxaban [Xarelto] 20 mg PO DAILY #30 tab Physician Discharge Instructions: 68-year-old male past medical history of obesity, chronic A-fib on anticoagulation, chronic combined systolic and diastolic heart failure, dyspnea, medication brought to the ED due to complaint of hallucinations, slurred speech and slow responses, and with rapid heart rate. In the ED, patient's heart rate reported to be in the 140s and SpO2 81% on room air. Patient was placed on supplemental O2 on arrival. Blood work showed elevated INR at 9.28, sodium 130, elevated LFTs and bilirubins, ammonia normal, troponin normal, BNP 7982. TSH 4.950 and free T4 1.47. Chest x-ray showed signs of pulmonary edema. Patient admitted to the medical floor and the following medical problems addressed: Acute on chronic hypercapnic respiratory failure secondary to acute on chronic CHF exacerbation (HFpEF) Anasarca, improving Aortic stenosis, mild to moderate, chronic stable CT chest/abd/pelvis: Mild fluid retention pattern seen with small pleural effusions, mild ascites and anasarca. Possible gallstones. Patient was treated with IV Lasix, later switched to Diamox when his ABG showed CO2 retention. He was also treated with spironolactone and bronchodilators including Brovana. Patient mental status eventually improved, repeat ABG showed resolution of CO2 retention. Pulmonary Dr. Espinal was considering outpatient NIV, however the arrangement was discontinued given resolution of CO2 retention and patient tolerating room air. Patient functional status also improved and he was able to ambulate. He took a lap in the hallway with standby assist. Acute metabolic/hepatic encephalopathy Hallucinations, visual and auditory, resolved CT head done twice was negative for any acute findings Hallucinations likely related to CO2 narcosis Patient treated for possible hepatic encephalopathy with lactulose, thiamine given history of alcohol abuse. Ammonia level was only mildly elevated, and later improved to normal. Paroxysmal Atrial fibrillation on chronic anticoagulation Coumadin toxicity, resolved Supratherapeutic INR, resolved Patient noted to have atrial fibrillation. He was on chronic anticoagulation with warfarin. His INR was supratherapeutic on presentation Patient seen by cardiology Dr. Kidd and warfarin switched to Xareltoper Dr. Kidd recommendation Patient is on Toprol-XL which was continued during the hospital stay with no dose change HR rate was controlled. Hypervolemic hyponatremia Patient treated with Diamox Abdominal wall cellulitis Patient with redness in the anterior abdominal wall suspected to be related to abdominal cellulitis versus edema. Patient was treated with several days of IV antibiotics which was later trans itioned to oral Levaquin. He completed about 12 days of antibiotics. Erythema resolved Alcoholic liver disease Thrombocytopenia resolved liver u/s showed hepatomegaly. Outpatient follow-up recommended Hypothyroidism, mild TSH 4.950, free T4 1.47 Repeat studies in a few months recommended. Followup: OOT,OOT [Primary Care Provider] - 1-2 Weeks Alexander Espinal MD [ACTIVE - CAN ADMIT] - 1-2 Weeks Rony Kidd MD [ACTIVE - CAN ADMIT] - (Within 2 to 3 weeks) Time spent managing pt's care (in minutes): 42
[2024-12-03 16:31] VITALS: BP 109/59; TEMP 97.9
[2024-12-03 16:51] VITALS: O2SAT 96
== END 2024-12-03 18:50 | disposition home health service (06) | DRG 291 ==
LOC: ER 11:55 → ERHOLD 15:33 → 2ND 11-14 12:06 → 3RD-ICU 11-20 18:31 → 2ND 11-23 13:41
PROVIDERS: ADMIT Hospitalist; ATTEND Internal Medicine
PROC: 5A09557 Assistance with Respiratory Ventilation, Greater than 96 Consecutive Hours, Continuous Positive Airway Pressure (ICD-10-PCS; 2024-11-14)
PROC: 4A033R1 Measurement of Arterial Saturation, Peripheral, Percutaneous Approach (ICD-10-PCS; principal; 2024-11-16)
DX: I50.33 Acute on chronic diastolic (congestive) heart failure (principal); G93.41 Metabolic encephalopathy; J96.22 Acute and chronic respiratory failure with hypercapnia; J96.21 Acute and chronic respiratory failure with hypoxia; E87.1 Hypo-osmolality and hyponatremia; Z68.41 Body mass index [BMI] 40.0-44.9, adult; L03.311 Cellulitis of abdominal wall; R18.8 Other ascites; E66.01 Morbid (severe) obesity due to excess calories; K76.82 Hepatic encephalopathy; K70.9 Alcoholic liver disease, unspecified; I48.0 Paroxysmal atrial fibrillation; E03.9 Hypothyroidism, unspecified; I35.0 Nonrheumatic aortic (valve) stenosis; D69.6 Thrombocytopenia, unspecified; T45.515A Adverse effect of anticoagulants, initial encounter; R44.1 Visual hallucinations; Z66 Do not resuscitate; Z79.01 Long term (current) use of anticoagulants; Z79.890 Hormone replacement therapy; Z79.899 Other long term (current) drug therapy; Z91.148 Patient's other noncompliance with medication regimen for other reason
CPT/HCPCS: 36415; 36600; 70450; 71045; 71250; 74176; 76705; 80048; 80053; 80076; 80202; 82140; 82803; 82805; 83735; 83880; 84100; 84439; 84443; 84484; 85025; 85027; 85610; 87040; 93005; 93306; 94660; 94760; 96374; 96375; 97110; 97116; 97161; 97166; 97530; 99285; J0696; J1938; J2470; J3373; J3411; J3430; J3475; J3486; J7040; J7605; J7614; J7644; Q9967